=== PATIENT | male | born 1980 | race Caucasian/White ===

== ENCOUNTER 2016-08-01 17:02 | Inpatient (IN) | payer MEDICAID ==
[~2016-08-01] VITALS: Ht 167.6 cm; Wt 65.6 kg
[2016-08-01] MEDS ORDERED: SOD CHLORIDE 0.9% 1,000 ML IV STA (17:55)
[2016-08-01] MEDS ORDERED: DIPHTH/TET/ACEL PERTUSS (ADULT) 0.5 ML VIAL IM* ONE (18:00)
[2016-08-01] MEDS ORDERED: ONDANSETRON 4 MG INJ IV ONE (18:00)
[2016-08-01] MEDS ORDERED: morphine 2 MG INJ IV ONE (18:00)
[2016-08-01] MEDS ORDERED: CEFAZOLIN 2 GM/50 ML (PMX) 50 ML IVPB ONE (18:00)
[2016-08-01 18:32] LABS: ADD SCAN DIFF NO
[2016-08-01 18:35] LABS: BASOPHIL # 0.1 10^3/ul (0.0-0.1); BASOPHILS % 1.5 % (0.0-2.0); HEMATOCRIT 43.2 % (42.0-52.0); HEMOGLOBIN 14.9 g/dl (14.0-18.0); LYMPHOCYTES # 0.6 10^3/ul (0.8-2.9); LYMPHOCYTES % 6.6 % (15.0-51.0); MEAN CORPUSCULAR HGB CONC 34.5 g/dl (32.0-37.0); MEAN CORPUSCULAR VOLUME 95.6 fl (82.0-101.0); MEAN PLATELET VOLUME 9.6 fl (7.4-10.4); MONOCYTE # 0.7 10^3/ul (0.3-0.9); MONOCYTES % 7.9 % (0.0-11.0); NEUTROPHIL # 7.6 10^3/ul (1.6-7.5); NEUTROPHILS % 83.6 % (39.0-77.0); PLATELET COUNT 176 10^3/UL (140-415); RED BLOOD COUNT 4.52 10^6/ul (4.70-6.10); RED CELL DISTRIBUTION WIDTH 12.2 % (11.5-14.5); WHITE BLOOD COUNT 9.1 10^3/ul (4.8-10.8)
[2016-08-01 18:59] LABS: INR 1.21; POTASSIUM 3.9 mmol/L (3.5-5.1); PROTIME 15.4 Sec (12.2-14.2); PT RATIO 1.2
[2016-08-01 19:00] LABS: PARTIAL THROMBOPLASTIN TIME 32.2 Sec (25.0-35.0)
[2016-08-01 19:02] LABS: CALCIUM 9.3 mg/dl (8.4-10.2); CREATININE 0.6 mg/dl (0.61-1.24)
--- NOTE | 2016-08-01 19:14 | RADRPT ---
PROCEDURE: Portable chest x-ray. CLINICAL INDICATION: Injury, chest pain. TECHNIQUE: Portable AP view of the chest. COMPARISON: None. FINDINGS: No pulmonary edema or conolidation is identified. The cardiac silhouette is not enlarged. No pleur al effusion is seen. There is no pneumothorax. No fracture is identified. IMPRESSION: 1. No radiographic evidence of traumatic chest injury. RPTAT: HTAR .Horacio Thomson MD, MD Date Time Electronically viewed and signed by .Horacio Thomson MD, on 08/01/2016 19:13 .R/
--- NOTE | 2016-08-01 19:15 | RADRPT ---
PROCEDURE: XR Wrist. CLINICAL INDICATION: Pain. TECHNIQUE: 4 views of the left wrist. COMPARISON: None available. FINDINGS: There are fractures of the distal radial and ulnar metaphyses with a full shaft width volar displace ment, overriding, and volar angulation of the distal fracture fragments. The joint spaces are prese rved. IMPRESSION: 1. Fractures of the distal radial and ulnar metaphyses with a full shaft width volar displacement, overriding, and volar angulation of the distal fracture fragments. RPTAT: HTAR .Horacio Thomson MD, MD Date Time Electronically viewed and signed by .Horacio Thomson MD, on 08/01/2016 19:15 .R/
[2016-08-01] MEDS ORDERED: ONDANSETRON 4 MG INJ IV PRN (19:30)
[2016-08-01] MEDS ORDERED: ACETAMINOPHEN 325 MG TAB PO PRN (19:30)
[2016-08-01 20:13] VITALS: TEMP 99.2
--- NOTE | 2016-08-01 21:14 | ERA ---
ER Documentation Chief Complaint Date/Time DATE: 08/01/16 TIME: 21:13 Chief Complaint LEFT WRIST PAIN POSSIBLE OPEN FRACTURE, FELL OFF SKATEBOARD TODAY HPI 36-year-old male who presents with left wrist pain and deformity with open skin wounds after a skateboard incident just prior to arrival. The patient is ambidextrous. He states that he fell he did not hit his head or lose consciousness. The patient has obvious deformity and pain that is moderate to severe to the left wrist with open wounds to the dorsal aspect of the wrist. Pain is worse with movement and constant. ROS All systems reviewed and are negative except as per history of present illness. Medications Home Meds No Active Prescriptions or Reported Meds Allergies Allergies: Coded Allergies: No Known Allergy (Unverified , 08/01/16) PMhx/Soc Medical and Surgical Hx: pt denies Medical Hx, pt denies Surgical Hx Hx Alcohol Use: No Hx Substance Use: No Hx Tobacco Use: No Smoking Status: Never smoker FmHx Family History: No diabetes Physical Exam Vitals Vital Signs Date Time Temp Pulse Resp B/P Pulse Ox O2 Delivery O2 Flow Rate FiO2 08/01/16 20:13 99.2 91 19 135/84 98 Room Air 08/01/16 18:30 99.2 98 17 132/81 95 Room Air 08/01/16 17:18 98.5 113 22 132/84 97 Physical Exam Airway is intact Bilateral breath sounds Strong distal pulses No obvious deficits General: Well developed, well nourished, no acute distress Head: Normocephalic, atraumatic Eyes: Pupils equally reactive, EOM intact ENT: Moist mucous membranes Neck: Supple, no lymphadenopathy, No midline tenderness, deformities, step-offs to the cervical spine, full active and passive range of motion without midline pain. Respiratory: Lungs clear bilaterally, no distress, no chest wall tenderness, no crepitus Cardiovascular: RRR, no murmurs, rubs, or gallops Abdominal: Soft, non-tender, non-distended, no peritoneal signs, pelvis is stable : Deferred MSK: Obvious deformity to the distal radius and ulnar of the left wrist with open wounds to the radial aspect of the wrist and dorsal aspect of the wrist that appear to be puncture wounds, slightly oozing blood. 2+ radial and ulnar pulses. Good capillary refill., no midline tenderness deformities or step-offs to the thoracolumbar spine Neurologic: Alert and oriented, moving all extremities, normal speech, no focal weakness, no cerebellar signs Skin: No ecchymoses or bruising to the chest or abdomen. Skin is documented above Psych: Normal mood Result Diagram: 08/01/16 1806 08/01/16 1806 Results 24 hrs Laboratory Tests Test 08/01/16 18:06 White Blood Count 9.110^3/ul Red Blood Count 4.5210^6/ul Hemoglobin 14.9g/dl Hematocrit 43.2% Mean Corpuscular Volume 95.6fl Mean Corpuscular Hemoglobin 33.0pg Mean Corpuscular Hemoglobin Concent 34.5g/dl Red Cell Distribution Width 12.2% Platelet Count 73059^3/UL Mean Platelet Volume 9.6fl Neutrophils % 83.6% Lymphocytes % 6.6% Monocytes % 7.9% Eosinophils % 0.0% Basophils % 1.5% Nucleated Red Blood Cells % 0.0/100WBC Neutrophils # 7.610^3/ul Lymphocytes # 0.610^3/ul Monocytes # 0.710^3/ul Eosinophils # 0.010^3/ul Basophils # 0.110^3/ul Nucleated Red Blood Cells # 0.010^3/ul Prothrombin Time 15.4Sec Prothrombin Time Ratio 1.2 INR International Normalized Ratio 1.21 Activated Partial Thromboplast Time 32.2Sec Sodium Level 143mmol/L Potassium Level 3.9mmol/L Chloride Level 98mmol/L Carbon Dioxide Level 26mmol/L Anion Gap 23 Blood Urea Nitrogen 5mg/dl Creatinine 0.60mg/dl Glucose Level 210mg/dl Calcium Level 9.3mg/dl Current Medications Medications (Trade) Dose Ordered Sig/Shaila Route PRN Reason Start Time Stop Time Status Last Admin Dose Admin Sodium Chloride (NS) 1,000 ml @ 1,000 mls/hr Q1H STAT IV 08/01/16 17:55 08/01/16 18:54 DC 08/01/16 18:11 Morphine Sulfate (morphine) 4 mg ONCE ONCE IV 08/01/16 18:00 08/01/16 18:01 DC 08/01/16 18:12 Ondansetron HCl 4 mg 4 mg ONCE ONCE IV 08/01/16 18:00 08/01/16 18:01 DC 08/01/16 18:11 Cefazolin Sodium/ Dextrose (Ancef 2 Gm/50 ml (Pmx)) 50 ml @ 100 mls/hr ONCE ONCE IVPB 08/01/16 18:00 08/01/16 18:29 DC 08/01/16 18:13 Diphtheria/ Tetanus/Acell Pertussis (Adacel) 0.5 ml ONCE ONCE IM* 08/01/16 18:00 08/01/16 18:01 DC 08/01/16 18:12 Ondansetron HCl (Zofran Inj) 4 mg BRIDGE ORDER PRN IV NAUSEA AND/OR VOMITING 08/01/16 19:30 08/02/16 19:29 Acetaminophen (Tylenol Tab) 650 mg ER BRIDGE PRN PO MILD PAIN/FEVER 08/01/16 19:30 08/02/16 19:29 Procedures/MDM EKG, MONITORS, & DIAGNOSTIC IMAGING: EKG: I reviewed and interpreted a 12-lead EKG. Rhythm: Normal sinus rhythm Ectopy: None Intervals: No abnormalities ST segments: No elevations or depressions T waves: No contiguous inversions Chest x-ray: I reviewed and interpreted a 1 view of the chest Mediastinum: No enlargement Cardiac silhouette: No cardiomegaly Airspace: Clear lung reynoso bilaterally without evidence of pneumothorax Bones: No evidence of fracture X-ray left wrist: I reviewed and interpreted multiple views of the x-ray Bones: Comminuted and displaced distal radius and ulna fractures Soft tissue: No evidence of foreign body Splint Application Note: Splint type: Fabricated Ortho-Glass sugar tong Extremity: Left upper extremity Indication: Open fracture The patient was consented at bedside prior to splint application and states understanding of risks, benefits, and alternatives. The patient was neurovascularly intact prior to and status post application of the splint. The patient tolerated the procedure well and there were no complications. LAB INTERPRETATION: No acute process MEDICAL DECISION MAKING: The patient has signs and symptoms consistent with open fracture of the distal radius and ulnar of the left upper extremity. No evidence of head trauma. The patient does not meet high-risk criteria and based on NEXUS cervical spine criteria there is no indication for cervical spine imaging at this time. ER COURSE: The patient's wound was thoroughly irrigated his tetanus was updated he was given 2 g of Ancef and pain medication. The patient was immobilized as documented above. The patient will be admitted for surgical management of open fracture. I kept the patient and/or family informed of laboratory and diagnostic imaging results throughout the emergency room course. DISPOSITION PLAN: Medical surgical admission for management of open fracture CONSULTATION: Accepting care team and consultations: I discussed the current laboratory data, diagnostic imaging and emergency care provided. Admitting team: Dr. Dumont Admitting team indication: Insurance directed Consulting services: Orthopedic surgery Dr. Gracia Departure Diagnosis: Primary Impression: Open fracture of left distal radius Qualified Code: S52.502B - Type I or II open fracture of distal end of left radius, unspecified fracture morphology, initial encounter Additional Impression: Open fracture of distal end of left ulna Qualified Code: S52.602B - Type I or II open fracture of distal end of left ulna, unspecified fracture morphology, initial encounter Condition: Stable RAUL COSME MD August 01, 2016 21:13
[2016-08-01 21:25] VITALS: Ht 167.6 cm; Wt 65.6 kg
[2016-08-01 22:04] VITALS: BP 113/73; RESP 17
[2016-08-01 22:09] VITALS: BP 114/65; RESP 19
[2016-08-01] MEDS ORDERED: SOD CHLORIDE 0.9% 1,000 ML IV SCH (23:55)
--- NOTE | 2016-08-01 23:55 | HP ---
Date/Time of Note Date/Time of Note DATE: 08/01/16 TIME: 23:55 Assessment/Plan VTE Prophylaxis VTE Prophylaxis Intervention: SCD's Assessment/Plan Chief Complaint/Hosp Course This is a 36-year-old male who is being admitted to the medical floor for: #1 open left wrist fracture: X-ray shows Fractures of the distal radial and ulnar metaphyses with a full shaft width volar displacement, overriding, and volar angulation of the distal fracture fragments. Currently right now patient is in a cast. He was started on Ancef. We will continue Ancef for surgical prophylaxis. Pain control with IV pain medication. Keep the patient n.p.o. IV fluids. Dr. Gracia of orthopedic surgery was already called consulted via the ED. #2 heavy alcohol use: Patient states that he drinks approximately 6 beers on a daily basis with his last drink being approximately this morning. We will continue to monitor patient for alcohol withdrawal. Given banana bag. As needed Ativan for withdrawal symptoms. #3 family history of diabetes: We will check a hemoglobin A1c #4 vitamin D deficiency: Continue workup as outpatient. He is currently not on any medications. #5 DVT and GI prophylaxis: SCDs, famotidine. Further management will be implemented as per the clinical course Problems: HPI/ROS Admit Date/Time Admit Date/Time August 01, 2016 at 19:23 Hx of Present Illness Chief complaint: Broken left wrist 36-year-old male who presents with left wrist pain and deformity with open skin wounds after a skateboard incident just prior to arrival. The patient is ambidextrous. He states that he fell he did not hit his head or lose consciousness. The patient has obvious deformity and pain that is moderate to severe to the left wrist with open wounds to the dorsal aspect of the wrist. Pain is worse with movement and constant. He was casted in the ER. He was also given Ancef. Orthopedic surgery was consulted. Patient currently right now has gotten pain relief from the pain medications he received. Allergies: NKDA Medications: None ROS Const: As per HPI Eyes : No pain discharge or redness or change in visual acuity ENT: No pain, sore throat, congestion, congestion, dysphagia or discharge Respiratory: No shortness of breath, cough, sputum, wheezing, or pleuritic pain Cardiovascular: No chest pain, palpitation, PND, or edema GI : no change in appetite, abdominal pain, nausea, vomiting, diarrhea, constipation, or change in the color his stool Genitourinary: No dysuria, hematuria, flank pain , discharge or CVA tenderness Musculoskeletal: As per HPI Skin: No rash, bruising or hives Neuro: No headache, dizziness, syncope, seizure, focal weakness Endocrine: No polyuria, polydipsia, temperature intolerance Psych: No hallucination, depression, anxiety or suicidal ideation PMH/Family/Social Past Medical History Vitamin D deficiency, and some Past Surgical History Past Surgical Hx: no surgical history Family History Significant Family History: cancer (Mom: Breast cancer), diabetes (Mom) Social History Alcohol Use: heavy (6 beers every day) Smoking Status: Never smoker Drug Use: marijuana Exam/Review of Systems Vital Signs Vitals Vital Signs Date Time Temp Pulse Resp B/P Pulse Ox O2 Delivery O2 Flow Rate FiO2 08/01/16 22:09 98.0 86 19 114/65 86 08/01/16 20:13 Room Air Exam Exam General: Patient is currently living in the hospital bed in no acute distress. HEENT: Atraumatic, normocephalic. The pupils are equal, round and reactive. Extraocular motor are intact Neck: Supple with full range of motion. No rigidity or meningismus Chest: Nontender Lungs: Clear to auscultation bilaterally no crackles rales or wheezing Heart: Normal S1-S2, Regular rhythm and rate. No murmur Abdomen: Soft , nontender, nondistended , bowel sounds are present. No guarding no rebound tenderness , No masses or organomegaly. No costovertebral temporal angle mass Extremities: Currently his left upper extremity is wrapped in a cast. There is a abrasion of the left kneecap. Neurologic: Normal mental status, speech normal, cranial nerves II through XII are intact, motor and sensory are intact, no focal weakness Additional Comments EKG Rhythm: Normal sinus rhythm Ectopy: None Intervals: No abnormalities ST segments: No elevations or depressions T waves: No contiguous inversions PROCEDURE: XR Wrist. CLINICAL INDICATION: Pain. TECHNIQUE: 4 views of the left wrist. COMPARISON: None available. FINDINGS: There are fractures of the distal radial and ulnar metaphyses with a full shaft width volar displacement, overriding, and volar angulation of the distal fracture fragments. The joint spaces are preserved. IMPRESSION: 1. Fractures of the distal radial and ulnar metaphyses with a full shaft width volar displacement, overriding, and volar angulation of the distal fracture fragments. RPTAT: HTAR .Horacio Thomson MD, Date Time Electronically viewed and signed by .Horacio Thomson MD, on 08/01/2016 19:15 PROCEDURE: Portable chest x-ray. CLINICAL INDICATION: Injury, chest pain. TECHNIQUE: Portable AP view of the chest. COMPARISON: None. FINDINGS: No pulmonary edema or conolidation is identified. The cardiac silhouette is not enlarged. No pleural effusion is seen. There is no pneumothorax. No fracture is identified. IMPRESSION: 1. No radiographic evidence of traumatic chest injury. RPTAT: HTAR .Horacio Thomson MD, Date Time Electronically viewed and signed by .Horacio Thomson MD, on 08/01/2016 19:13 Labs Result Diagram: 08/01/16 1806 08/01/16 1806 APRIL SALAZAR August 01, 2016 23:55
[2016-08-02] VITALS (24 sets, daily range): BP systolic 119–161; BP diastolic 70–93; PULSE 73–138; RESP 12–20
[2016-08-02] MEDS ORDERED: ACETAMINOPHEN 325 MG TAB PO PRN
[2016-08-02] MEDS ORDERED: LORAZEPAM 2 MG INJ IM PRN (02:30)
[2016-08-02] MEDS: CEFAZOLIN 2 GM/50 ML (PMX) 50 ML IVPB SCH ×4 (05:40→23:17)
[2016-08-02 06:10] LABS: ADD SCAN DIFF NO
[2016-08-02 06:15] LABS: ABNORMAL IP MESSAGE 1; BASOPHIL # 0.1 10^3/ul (0.0-0.1); EOSINOPHILS % 0.1 % (0.0-7.0); HEMATOCRIT 38.5 % (42.0-52.0); HEMOGLOBIN 13.2 g/dl (14.0-18.0); LYMPHOCYTES # 1.8 10^3/ul (0.8-2.9); LYMPHOCYTES % 14.6 % (15.0-51.0); MEAN CORPUSCULAR HEMOGLOBIN 32.6 pg (29.0-33.0); MEAN CORPUSCULAR HGB CONC 34.3 g/dl (32.0-37.0); MEAN CORPUSCULAR VOLUME 95.1 fl (82.0-101.0); MEAN PLATELET VOLUME 10.1 fl (7.4-10.4); MONOCYTE # 1.6 10^3/ul (0.3-0.9); MONOCYTES % 13.3 % (0.0-11.0); NEUTROPHIL # 8.6 10^3/ul (1.6-7.5); NEUTROPHILS % 70.8 % (39.0-77.0); PLATELET COUNT 162 10^3/UL (140-415); RED BLOOD COUNT 4.05 10^6/ul (4.70-6.10); RED CELL DISTRIBUTION WIDTH 11.9 % (11.5-14.5); WHITE BLOOD COUNT 12.1 10^3/ul (4.8-10.8)
[2016-08-02 06:28] LABS: ALBUMIN 4.2 g/dl (3.3-4.9)
[2016-08-02 06:29] LABS: POTASSIUM 3.3 mmol/L (3.5-5.1)
[2016-08-02 06:31] LABS: BILIRUBIN,INDIRECT 0.8 mg/dl (0-1.1); BILIRUBIN,TOTAL 0.8 mg/dl (0.2-1.3); CREATININE 0.51 mg/dl (0.61-1.24); TOTAL PROTEIN 8.4 g/dl (6.1-8.1)
[2016-08-02 06:32] LABS: CALCIUM 8.4 mg/dl (8.4-10.2); MAGNESIUM 1.5 mg/dl (1.7-2.5)
[2016-08-02] MEDS ORDERED: FENTAnyl 50 MCG/ML VIAL IV PRN (07:30)
[2016-08-02] MEDS ORDERED: OXYCODONE/ACETAMINOPHEN (5/325) TAB PO PRN ×2 (07:30)
[2016-08-02] MEDS ORDERED: ONDANSETRON 4 MG INJ IV PRN ×2 (07:30)
[2016-08-02] MEDS ORDERED: LORAZEPAM 2 MG INJ IV PRN (07:30)
[2016-08-02] MEDS ORDERED: PROCHLORPERAZINE 10 MG INJ IV PRN (07:30)
[2016-08-02] MEDS ORDERED: HYDROmorphONE (0.2 MG/ML) 10ML SYG IV PRN ×2 (07:30)
[2016-08-02] MEDS ORDERED: MEPERIDINE 25 MG INJ IV PRN (07:30)
[2016-08-02] MEDS ORDERED: DIPHENHYDRAMINE 50 MG INJ IV PRN (07:30)
[2016-08-02] MEDS: FAMOTIDINE 20 MG INJ IV SCH ×2 (08:40→20:43)
--- NOTE | 2016-08-02 10:49 | CONS ---
DATE OF ADMISSION: 08/01/2016 DATE OF CONSULTATION: 08/02/2016 HISTORY OF PRESENT ILLNESS: The patient is a 36-year-old ambidextrous male who was admitted on 07/14 when he was brought in to the emergency room because of a painful deformity involving his lef t wrist. Initial evaluation in the emergency room revealed an obvious fracture involving the distal end of the radius and ulna over the left wrist and there was a puncture wound over the dorsal aspec t of the left wrist and it was managed by cleaning of the wound, irrigation and debridement in the E R. His left wrist was then further immobilized in a splint and IV antibiotics were started. PHYSICAL EXAMINATION: My examination revealed a 36-year-old man who was not in any acute distress. His left upper extremity was immobilized in a posterior splint. There was no evidence of acute rob rovascular compromise involving the left hand. X-rays of the left wrist revealed a comminuted and displaced fracture involving the distal end of th e radius and ulna. Radiology evaluation was limited with only an AP view and a lateral view was not available for further evaluation. DIAGNOSTIC IMPRESSION: Fracture involving the distal end of the radius and ulna at the left wrist a nd a puncture wound, according to the ER description. TREATMENT PLAN: To surgery as soon as possible for further evaluation, followed by treatment includ ing possible repeat open irrigation and debridement, followed by irrigation and manipulative reducti on of the fracture and immobilization in a cast. Open reduction and internal fixation should be linda ided because of the higher possibility of infection with the use of hardware at this time. Dictated By: KRUPA BASURTO/GERMAINE Conf#: [id number] DID#: [id number]
[2016-08-02] MEDS: MULTIVITAMINS 10 ML, THIAMINE 100 MG, FOLIC ACID 1 MG in SOD CHLORIDE 0.9% 1,000 ML IVPB SCH (11:13)
[2016-08-02] MEDS ORDERED: SEVOFLURANE 15 MIN ONE (12:00)
[2016-08-02] MEDS ORDERED: FENTAnyl 50 MCG/ML VIAL ONE (12:29)
[2016-08-02] MEDS ORDERED: PROPOFOL 20 ML ONE (12:29)
[2016-08-02] MEDS ORDERED: LIDOCAINE 2% (SDV) 5 ML INJ ONE (12:29)
[2016-08-02] MEDS ORDERED: SUCCINYLCHOLINE CHLORIDE 100 MG/5 ML SYG IV ONE (12:51)
[2016-08-02] MEDS ORDERED: ONDANSETRON 4 MG INJ ONE (12:58)
[2016-08-02] MEDS ORDERED: METOCLOPRAMIDE 10 MG INJ ONE (12:58)
[2016-08-02] MEDS ORDERED: KETAMINE 500 MG INJ ONE (12:59)
[2016-08-02] MEDS ORDERED: MAGNESIUM SULFATE 1 GM/D5W 100 ML ONE (13:24)
[2016-08-02] MEDS ORDERED: morphine 2 MG INJ IV PRN ×2 (14:30)
[2016-08-02] MEDS ORDERED: NACL 0.9% 3 ML SYG IV SCH ×2 (14:30)
[2016-08-02] MEDS ORDERED: HYDROCODONE/APAP (5/325) TAB PO PRN (14:30)
--- NOTE | 2016-08-02 15:35 | RADRPT ---
PROCEDURE: XR Wrist. CLINICAL INDICATION: Left wrist . TECHNIQUE: AP, lateral and oblique views of the left wrist were performed. COMPARISON: Left wrist x-rays dated 08/01/2016 FINDINGS: There has been interval closed reduction of comminuted intra-articular distal radial and ulnar fract ures with placement of fiberglass cast which obscures evaluation of fine cortical detail. No signifi cant improved alignment. There is mild valgus angulation of the distal ulnar fracture fragment. The joint spaces are well preserved. No osseous erosions are identified. The soft tissues are unremark able. IMPRESSION: Interval closed reduction of comminuted intra-articular distal radial and ulnar fractures. Alignmen t is significantly improved with mild persistent valgus angulation of the distal ulnar fracture frag ment. RPTAT: HH .Brandee Mccullough MD, Date Time Electronically viewed and signed by .Brandee Mccullough MD, on 08/02/2016 15:35 .G/
--- NOTE | 2016-08-02 15:36 | RADRPT ---
PROCEDURE: C-arm utilization. CLINICAL INDICATION: Close reduction left distal radial ulnar fractures TECHNIQUE: Intraoperative fluoroscopy was performed during closed reduction of left distal radial ulnar fractures. COMPARISON: Wrist x-rays dated 08/01/2016 FINDINGS: 5 spot views of the left wrist were obtained. Intraoperative fluoroscopic images demonstrate close reduction of comminuted intra-articular fractures of the left distal radius and ulna.. A total of 4 .5 seconds of fluoroscopic time was utilized. IMPRESSION: 1. Intraoperative fluoroscopy with a total of 4.5 seconds of fluoroscopy time utilized. 2. 5 spot views of the left wrist were obtained. RPTAT: HH .Brandee Mccullough MD, Date Time Electronically viewed and signed by .Brandee Mccullough MD, on 08/02/2016 15:36 .G/
--- NOTE | 2016-08-02 15:57 | PN ---
Date/Time of Note Date/Time of Note DATE: 08/02/16 TIME: 15:55 Assessment/Plan VTE Prophylaxis VTE Prophylaxis Intervention: LMWH Lines/Catheters IV Catheter Type (from Nrsg): Peripheral IV Assessment/Plan Problems: (1) Open fracture of left distal radius Status: Acute Comment: Successfully postop and bandaged Qualifiers: Encounter type: initial encounter Open fracture type: open type I or II Fracture morphology: unspecified fracture morphology Qualified Code: S52.502B - Type I or II open fracture of distal end of left radius, unspecified fracture morphology, initial encounter (2) Open fracture of distal end of left ulna Status: Acute Comment: Successfully postop and bandage Qualifiers: Encounter type: initial encounter Open fracture type: open type I or II Fracture morphology: unspecified fracture morphology Qualified Code: S52.602B - Type I or II open fracture of distal end of left ulna, unspecified fracture morphology, initial encounter (3) Alcoholism /alcohol abuse Status: Chronic Comment: This is going to be a bit of an issue. Organ go ahead and put him on Librium now and hope for the best. He claims to only drinks 6 units a day of beer. I suspect it is probably at least twice that if not more. He further denies any other drugs of choice. Will get him through the acute phase and then will have long term care social worker see and offer him some rehabilitative therapies. Subjective 24 Hr Interval Summary Free Text/Dictation Patient is immediately postop and back up on the unit. He is tremulous and has some mild nausea. Denies any hallucinations. Constitutional: no complaints Respiratory: no complaints Cardiovascular: no complaints Gastrointestinal: no complaints Genitourinary: no complaints Exam/Review of Systems Vital Signs Vitals Vital Signs Date Time Temp Pulse Resp B/P Pulse Ox O2 Delivery O2 Flow Rate FiO2 08/02/16 15:17 99.0 100 18 143/77 96 Room Air 08/02/16 14:07 6.0 Intake and Output 08/01/16 08/01/16 08/02/16 15:00 23:00 07:00 Intake Total 455 ml Balance 455 ml Exam Constitutional: alert, oriented Neck: non-tender, supple Respiratory: clear to auscultation, normal air movement Cardiovascular: nl pulses, regular rate and rhythm Gastrointestinal: nl liver, spleen, non-tender, soft 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: other (Tremors no confusion yet) Results Result Diagram: 08/02/16 0458 08/02/16 0458 Results 24 hrs Laboratory Tests Test 08/01/16 18:06 08/02/16 04:48 08/02/16 04:58 White Blood Count 9.1 12.1 #H Red Blood Count 4.52 L 4.05 L Hemoglobin 14.9 13.2 L Hematocrit 43.2 38.5 L Mean Corpuscular Volume 95.6 95.1 Mean Corpuscular Hemoglobin 33.0 32.6 Mean Corpuscular Hemoglobin Concent 34.5 34.3 Red Cell Distribution Width 12.2 11.9 Platelet Count 176 162 Mean Platelet Volume 9.6 10.1 Neutrophils % 83.6 H 70.8 Lymphocytes % 6.6 L 14.6 L Monocytes % 7.9 13.3 H Eosinophils % 0.0 0.1 Basophils % 1.5 1.0 Nucleated Red Blood Cells % 0.0 0.0 Neutrophils # 7.6 H 8.6 H Lymphocytes # 0.6 L 1.8 Monocytes # 0.7 1.6 H Eosinophils # 0.0 0.0 Basophils # 0.1 0.1 Nucleated Red Blood Cells # 0.0 0.0 Prothrombin Time 15.4 H Prothrombin Time Ratio 1.2 INR International Normalized Ratio 1.21 Activated Partial Thromboplast Time 32.2 Sodium Level 143 142 Potassium Level 3.9 3.3 L Chloride Level 98 100 Carbon Dioxide Level 26 26 Anion Gap 23 H 19 H Blood Urea Nitrogen 5 L 4 L Creatinine 0.60 L 0.51 L Glucose Level 210 117 # Calcium Level 9.3 8.4 Hemoglobin A1c 5.8 Magnesium Level 1.5 L Total Bilirubin 0.8 Direct Bilirubin 0.00 Indirect Bilirubin 0.8 Aspartate Amino Transf (AST/SGOT) 97 H Alanine Aminotransferase (ALT/SGPT) 62 Alkaline Phosphatase 115 Total Protein 8.4 H Albumin 4.2 Globulin 4.20 H Albumin/Globulin Ratio 1.00 Medications Medications Current Medications Sodium Chloride (NS) 1,000 ml @ 75 mls/hr [id number] IV Last administered on 08/02t 01:46; Admin Dose 75 MLS/HR; Start 08/01/16 at 23:55 Ondansetron HCl (Zofran Inj) 4 mg Q6H PRN IV NAUSEA AND/OR VOMITING; Start at 00:00 Acetaminophen (Tylenol Tab) 650 mg Q6H PRN PO PAIN LEVEL 1-3 OR FEVER; Start at 00:00 Morphine Sulfate (morphine) 2 mg Q4H PRN IV SEVERE PAIN LEVEL 7-10; Start 08/02 at 00:00 Famotidine 20 mg 20 mg Q12 IV Last administered on 08/02/16 08:40; Admin Dose 20 MG; Start 08/02/16 at 09:00 Cefazolin Sodium/ Dextrose 50 ml @ 100 mls/hr Q6 IVPB Last administered on 11:14; Admin Dose 100 MLS/HR; Start 08/02/16 at 06:00 Multivitamins/ Thiamine HCl/ Folic Acid/Sodium Chloride (Mvi Adult/ Vitamin B1/ Folic Acid/NS) 1,011.2 ml @ 125 mls/ hr DAILY@09 IVPB Last administered on 11:13; Admin Dose 125 MLS/HR; Start 08/02/16 at 09:00 Lorazepam 1 mg 1 mg Q6H PRN IM AGITATION/ANXIETY Last administered on 15:15; Admin Dose 1 MG; Start 08/02/16 at 02:30 Sodium Chloride (NS) 1,000 ml @ 100 mls/hr Q10H IV ; Start 08/02/16 at 14:29 Morphine Sulfate (morphine) 2 mg Q3H PRN IV pain; Start 08/02/16 at 14:30 Acetaminophen/ Hydrocodone Bitart ([place] (5/325)) 1 tab Q3H PRN PO PAIN; Start 08/02/16 at 14:30 LUCIANO HORNE MD August 02, 2016 15:57
[2016-08-02] MEDS: SOD CHLORIDE 0.9% 1,000 ML IV SCH ×2 (20:43→23:16)
[2016-08-02] MEDS: CHLORDIAZEPOXIDE 25 MG CAP PO SCH (20:43)
[2016-08-03] MEDS: CEFAZOLIN 2 GM/50 ML (PMX) 50 ML IVPB SCH ×2 (05:20→13:05)
[2016-08-03 08:04] VITALS: BP 138/88; RESP 18
[2016-08-03] MEDS: CHLORDIAZEPOXIDE 25 MG CAP PO SCH (09:00)
[2016-08-03] MEDS: FAMOTIDINE 20 MG INJ IV SCH (09:00)
[2016-08-03] MEDS: MULTIVITAMINS 10 ML, THIAMINE 100 MG, FOLIC ACID 1 MG in SOD CHLORIDE 0.9% 1,000 ML IVPB SCH (09:00)
[2016-08-03] MEDS ORDERED: POTASSIUM CHLORIDE (SR) 20 MEQ TAB PO STA (09:20)
--- NOTE | 2016-08-03 09:22 | PN ---
Date/Time of Note Date/Time of Note DATE: 08/03/16 TIME: 09:20 Assessment/Plan VTE Prophylaxis VTE Prophylaxis Intervention: contraindicated Lines/Catheters IV Catheter Type (from Nrs): Peripheral IV Urinary Cath still in place: No Assessment/Plan Problems: (1) Alcoholism /alcohol abuse Status: Chronic Comment: He is better than he was yesterday but is still having some degree of withdrawal. Due to him being oversedated with the Librium when he is a lower dose and since he is refusing Librium will use Ativan he is actually a point where he could medically be discharged (2) Open fracture of left distal radius Status: Acute Comment: Status post closed reduction. He is on bracing. From medical standpoint he actually probably could go home discharge as per orthopedics giving us the clearance and follow-up plan Please note this is a closed fracture not an open fracture Qualifiers: Encounter type: initial encounter Open fracture type: open type I or II Fracture morphology: unspecified fracture morphology Qualified Code: S52.502B - Type I or II open fracture of distal end of left radius, unspecified fracture morphology, initial encounter (3) Open fracture of distal end of left ulna Status: Acute Comment: As above. Please note this is a closed fracture not an open fracture Qualifiers: Encounter type: initial encounter Open fracture type: open type I or II Fracture morphology: unspecified fracture morphology Qualified Code: S52.602B - Type I or II open fracture of distal end of left ulna, unspecified fracture morphology, initial encounter Subjective 24 Hr Interval Summary Free Text/Dictation Patient reports with the Librium he felt sedated to the point of being modestly disoriented and did not like the sensation. Constitutional: no complaints Respiratory: no complaints Cardiovascular: no complaints Gastrointestinal: no complaints Genitourinary: no complaints Musculoskeletal: other (Arm pain left) Exam/Review of Systems Vital Signs Vitals Vital Signs Date Time Temp Pulse Resp B/P Pulse Ox O2 Delivery O2 Flow Rate FiO2 08/03/16 08:04 98.9 117 18 138/88 97 08/02/16 15:17 Room Air 08/02/16 14:07 6.0 Intake and Output 08/02/16 08/02/16 08/03/16 15:00 23:00 07:00 Intake Total 450 ml 1300 ml 950 ml Output Total 1 ml Balance 449 ml 1300 ml 950 ml Exam Tremulous Constitutional: alert, oriented Psych: anxiety Neck: non-tender, supple Respiratory: clear to auscultation, normal air movement Cardiovascular: nl pulses, regular rate and rhythm Gastrointestinal: nl liver, spleen, non-tender, soft Results Result Diagram: 08/02/16 0458 08/02/16 0458 Medications Medications Current Medications Ondansetron HCl (Zofran Inj) 4 mg Q6H PRN IV NAUSEA AND/OR VOMITING Last administered on 08/02/16 16:15; Admin Dose 4 MG; Start 08/02/16 at 00:00 Acetaminophen (Tylenol Tab) 650 mg Q6H PRN PO PAIN LEVEL 1-3 OR FEVER Last administered on 08/02/16 20:43; Admin Dose 650 MG; Start 08/02/16 at 00:00 Morphine Sulfate (morphine) 2 mg Q4H PRN IV SEVERE PAIN LEVEL 7-10; Start 08/02 at 00:00 Famotidine 20 mg 20 mg Q12 IV Last administered on 08/02/16 20:43; Admin Dose 20 MG; Start 08/02/16 at 09:00 Cefazolin Sodium/ Dextrose 50 ml @ 100 mls/hr Q6 IVPB Last administered on 05:20; Admin Dose 100 MLS/HR; Start 08/02/16 at 06:00 Multivitamins/ Thiamine HCl/ Folic Acid/Sodium Chloride (Mvi Adult/ Vitamin B1/ Folic Acid/NS) 1,011.2 ml @ 125 mls/ hr DAILY@09 IVPB Last administered on 11:13; Admin Dose 125 MLS/HR; Start 08/02/16 at 09:00 Lorazepam 1 mg 1 mg Q6H PRN IM AGITATION/ANXIETY Last administered on 15:15; Admin Dose 1 MG; Start 08/02/16 at 02:30 Sodium Chloride (NS) 1,000 ml @ 100 mls/hr Q10H IV Last administered on 20:43; Admin Dose 100 MLS/HR; Start 08/02/16 at 14:29 Morphine Sulfate (morphine) 2 mg Q3H PRN IV pain; Start 08/02/16 at 14:30 Acetaminophen/ Hydrocodone Bitart ([facility] (5/325)) 1 tab Q3H PRN PO PAIN; Start 08/02/16 at 14:30 Chlordiazepoxide (Librium) 50 mg TID PO Last administered on 08/02/16t 20:43; Admin Dose 50 MG; Start 08/02/16 at 21:00; Stop 08/04/16 at 20:59 LUCIANO HORNE MD August 03, 2016 09:22
[2016-08-03] MEDS ORDERED: LORAZEPAM 0.5 MG TAB PO SCH (09:30)
[2016-08-03] MEDS: SOD CHLORIDE 0.9% 1,000 ML IV SCH (10:29)
--- NOTE | 2016-08-03 12:05 | PDOCDIS ---
Discharge Instructions DIAGNOSIS Discharge Diagnosis: Left olecranon fx, Alcoholism CONDITION Patient Condition: Good HOME CARE INSTRUCTIONS: Diet Instructions: Regular ACTIVITY: Activity Restrictions: Slowly Increase Activity No Sexual Activity FOLLOW UP/APPOINTMENTS Appointments Contact primary doctor at [facility] and get referral to in plan orthopedist this week LUCIANO HORNE MD August 03, 2016 12:05
[2016-08-03] MEDS ORDERED: HYDR-3498 PO (12:06)
[2016-08-03] MEDS ORDERED: CEPH500C PO (12:13)
--- NOTE | 2016-08-03 12:14 | DS ---
Date/Time of Note Date/Time of Note DATE: 08/03/16 TIME: 12:10 Discharge Summary Admission/Discharge Info Admit Date/Time August 01, 2016 at 19:23 Discharge Date/Time 08/03/2016 Final Diagnosis Fracture involving the distal end of the radius and ulna at the left wrist; alcoholism with withdrawal Patient Condition: Fair Consults Orthopedic surgery/Dr. Gracia Procedures Closed reduction of fracture Hx of Present Illness Chief complaint: Broken left wrist 36-year-old male who presents with left wrist pain and deformity with open skin wounds after a skateboard incident just prior to arrival. The patient is ambidextrous. He states that he fell he did not hit his head or lose consciousness. The patient has obvious deformity and pain that is moderate to severe to the left wrist with open wounds to the dorsal aspect of the wrist. Pain is worse with movement and constant. He was casted in the ER. He was also given Ancef. Orthopedic surgery was consulted. Patient currently right now has gotten pain relief from the pain medications he received. Allergies: NKDA Medications: None Hospital Course This is a 36-year-old male who is being admitted to the medical floor for: #1 open left wrist fracture: X-ray shows Fractures of the distal radial and ulnar metaphyses with a full shaft width volar displacement, overriding, and volar angulation of the distal fracture fragments. Currently right now patient is in a cast. He was started on Ancef. We will continue Ancef for surgical prophylaxis. Pain control with IV pain medication. Keep the patient n.p.o. IV fluids. Dr. Gracia of orthopedic surgery was already called consulted via the ED. #2 heavy alcohol use: Patient states that he drinks approximately 6 beers on a daily basis with his last drink being approximately this morning. We will continue to monitor patient for alcohol withdrawal. Given banana bag. As needed Ativan for withdrawal symptoms. #3 family history of diabetes: We will check a hemoglobin A1c #4 vitamin D deficiency: Continue workup as outpatient. He is currently not on any medications. #5 DVT and GI prophylaxis: SCDs, famotidine. Further management will be implemented as per the clinical course Home Meds Active Scripts Hydrocodone Bit-Acetaminophen (Hydrocodone Bit-APAP) 5-325MG Tablet, 1 TAB PO Q3H Y for PAIN for 7 Days, #14 TAB Prov:LUCIANO HORNE MD 08/03/16 Follow-up Plan Orthopedic surgeon in [facility] to be connected by primary care physician Primary Care Provider [facility] per patient Time spent on discharge: > 30 minutes LUCIANO HORNE MD August 03, 2016 12:14
--- NOTE | 2016-08-04 17:32 | OPR ---
DATE OF OPERATION: 08/02/2016 PREOPERATIVE DIAGNOSIS: Severely comminuted and displaced fracture involving the distal end of the radius and ulna at the left wrist, technically open. POSTOPERATIVE DIAGNOSIS: Severely comminuted and displaced fracture involving the distal end of the radius and ulna at the left wrist, technically open. OPERATION PERFORMED: 1. Open irrigation and debridement of the wound and at the fracture site. 2. Manipulative reduction under general anesthesia by hanging it from IV pole using Czech finger trap. 3. Immobilization in a long arm cast. SURGEON: Krupa Gracia MD PROCEDURE AND FINDINGS: Under anesthesia, the patient was placed in supine position upon the table. Initially, the small open wound was repeatedly irrigated with sterile saline solution and hydrogen peroxide even though it was reportedly irrigated in the ER before. After irrigation, manipulative reduction of the fracture was carried out and then the left wrist was hanged from IV pole using Chin carine finger trap with the weight at the elbow. Following further manipulation, it was confirmed that the alignment of the fracture was entirely satisfactory. The entire left upper extremity was then immobilized in a long arm splint. The patient tolerated the entire procedure very well and was sent to the recovery room in excellent condition. Dictated By: KRUPA BASURTO/GERMAINE Conf#: [id number] DID#: [id number]
--- NOTE | 2016-08-05 03:54 | DS ---
DATE OF ADMISSION: 08/01/2016 DATE OF DISCHARGE: 08/03/2016 ADDENDUM DISCHARGE NOTE HOSPITAL COURSE: Mr. Dominique is a 36-year-old gentleman who had been riding his significant other skateboard fell and sustained an olecranon fracture. He was taken to the operating room by Dr. Alex Gracia who performed reduction and then wanted the patient to be allowed to be discharged. He was di scharged with oral antibiotics, specifically Keflex as per the directions of Dr. Gracia. Please note, the patient had been under the primary care of our colleagues at [facility]. When they lef t on the 08/03/2016, they were given specific instructions to contact them immediately to make arran gements for followup. This is as Dr. Gracia had requested the patient follow up there due to insurance issues for the patient as opposed to following up with Dr. Gracia in his office. They have come back to the hospital today stating that they need a prescription for narcotics rewritten. As they anlsey t in the first one I have gone ahead and rewritten their prescription for hydrocodone/acetaminophen 5-325, one q.6 hours p.r.n. for 14 pills with no refills. Again, they will follow up with their [facility] care physician at [facility], I reconfirmed this with the patient's mother and his sig nificant other, Elizabeth Berger. Dictated By: LUCIANO HORNE MD, JR/NTS Conf#: [id number] DID#: [id number] CC: KRUPA GRACIA MD;*EndCC*
== END 2016-08-03 14:25 | disposition home or self-care (01) | DRG 501 ==
LOC: E/R 17:02 → PP2 19:23
PROVIDERS: ADMIT Family Medicine; ATTEND Family Medicine
PROC: 0JDH0ZZ Extraction of Left Lower Arm Subcutaneous Tissue and Fascia, Open Approach (ICD-10-PCS; 2016-08-02)
PROC: 0PSLXZZ Reposition Left Ulna, External Approach (ICD-10-PCS; 2016-08-02)
PROC: 0PSJXZZ Reposition Left Radius, External Approach (ICD-10-PCS; principal; 2016-08-02 13:15)
DX: S52.592B Other fractures of lower end of left radius, initial encounter for open fracture type I or II (principal); F10.239 Alcohol dependence with withdrawal, unspecified; E55.9 Vitamin D deficiency, unspecified; S52.692B Other fracture of lower end of left ulna, initial encounter for open fracture type I or II; V00.131A Fall from skateboard, initial encounter; Y93.51 Activity, roller skating (inline) and skateboarding; Y92.89 Other specified places as the place of occurrence of the external cause
CPT/HCPCS: 71010; 73100; 80048; 80053; 83036; 83735; 85025; 85610; 85730; 90471; 90715; 96374; 96375; J0690; J2060; J2270; J2405; J2765; J3010; J3411; J3475; J7030; J7999

== ENCOUNTER 2016-09-03 13:17 | Emergency (ER) | payer MEDICAID ==
[~2016-09-03] VITALS: Ht 157.5 cm; Wt 64.5 kg
[~2016-09-03 13:17] MED LIST: CEPH500C PO; HYDR-3498 PO
[2016-09-03 13:39] VITALS: Ht 157.5 cm; Wt 64.5 kg
--- NOTE | 2016-09-03 18:36 | ERD ---
ER Documentation Chief Complaint Date/Time DATE: 09/03/16 TIME: 18:32 Chief Complaint LEFT HAND SWELLING HAS A CAST FROM A BROKEN ARM, IS INTOXICATED ETOH HPI 36-year-old male had a fracture elbow repaired on August 01, comes in with arm swelling that occurred yesterday, and feeling of warmth in his chest that he thought was possible fevers. She states that this time he is homeless and has been sleeping in the car yesterday he had gotten overheated in the car at that time he thought he might of had a fever. He took a painkiller, he was prescribed Clio which she took once last night, and states that not feeling a fever has resolved today. He also states that he has some swelling to the left hand however that has resolved and he has not had any pain. ROS All systems reviewed and are negative except as per history of present illness. Medications Home Meds Active Scripts Cephalexin* (Cephalexin*) 500 Mg Capsule, 500 MG PO Q8, #21 CAP Prov:LUCIANO HORNE MD 08/03/16 Hydrocodone Bit-Acetaminophen (Hydrocodone Bit-APAP) 5-325MG Tablet, 1 TAB PO Q3H Y for PAIN for 7 Days, #14 TAB Prov:LUCIANO HORNE MD 08/03/16 Allergies Allergies: Coded Allergies: No Known Allergy (Unverified , 08/01/16) PMhx/Soc History of Surgery: No Anesthesia Reaction: No Hx 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 Disorder: No Hx Respiratory Disorders: No Hx Cardiac Disorders: No Hx Psychiatric Problems: No Hx Alcohol Use: Yes Hx Substance Use: Yes (marijuana) Hx Tobacco Use: No Physical Exam Vitals Vital Signs Date Time Temp Pulse Resp B/P Pulse Ox O2 Delivery O2 Flow Rate FiO2 09/03/16 13:39 98.5 92 18 126/67 97 Physical Exam General: Well-developed, well-nourished. The patient appears in no acute distress. HEENT: Head is normocephalic, atraumatic. No scleral icterus. Neck: Supple. Nontender. Lungs: Clear to auscultation. Normal air movement. Heart: Regular rate and rhythm. S1 and S2 are normal. No murmurs, gallops, or rubs. Abdomen: Soft, nontender, nondistended. Bowel sounds are normoactive. Extremities: Patient's left upper extremity is casted, and a long-arm. Patient' s sensation is distally intact, there is no edema to the left hand that is appreciated. Neurologic: Alert and oriented 3. No focal deficits. Skin: Normal turgor. No rash or lesions. Procedures/MDM MDM: 36-year-old male comes in with left upper extremity swelling and feeling of warmth in his chest yesterday. He states that he had some concern that it might of been a fever however that sensation has stopped since he has not been sleeping in the car today. He also reports that there is no swelling today. His examination is benign, given the history that he is supposed to see in the cast, I did discuss this with my attending physician and feels it is appropriate to discharge the patient without further imaging or laboratory testing. I doubt septic arthritis, osteomyelitis, tenosynovitis, DVT, cellulitis, abscess and among others are part of my differential diagnosis. The case was reviewed and discussed with Dr. Hightower who agrees with the plan of care including labs, treatment, and advanced imaging as appropriate. Departure Diagnosis: Primary Impression: Elbow fracture, left Condition: Good Patient Instructions: Elbow Fracture Referrals: PAUL REYES MD Additional Instructions: [facility] for an appointment during the next 1-2 days.See the doctor sooner or return here if your condition worsens before your appointment time. BRAN MAGALLON PA-C Sep 03, 2016 18:36
== END 2016-09-03 15:42 | disposition home or self-care (01) ==
LOC: FTE 13:17
DX: S42.402D Unspecified fracture of lower end of left humerus, subsequent encounter for fracture with routine healing (principal); X58.XXXD Exposure to other specified factors, subsequent encounter
CPT/HCPCS: 99282

== ENCOUNTER 2017-03-26 15:04 | Emergency (ER) | END 2017-03-26 17:01 | disposition home or self-care (01) ==

== ENCOUNTER 2017-06-24 12:00 | Emergency (ER) | END 2017-06-24 20:33 | disposition home or self-care (01) ==

== ENCOUNTER 2017-12-16 12:13 | Emergency (ER) | END 2017-12-16 14:23 | disposition home or self-care (01) ==

== ENCOUNTER 2018-06-05 11:29 | Emergency (ER) | payer MEDICAID ==
[~2018-06-05] VITALS: Ht 167.6 cm; Wt 65.0 kg
[~2018-06-05 11:29] MED LIST changes: -CEPH500C PO; +CHOL400T10 PO; -HYDR-3498 PO; +LORA1TAB PO
[2018-06-05 11:49] VITALS: BP 151/97; PULSE 105; RESP 18; Ht 167.6 cm; Wt 65.0 kg
--- NOTE | 2018-06-05 14:21 | ERD ---
ER Documentation Chief Complaint Chief Complaint left eye drainage x 1 monht HPI 37-year-old male, with history of severe facial acne, presents to the emergency department, complaining of a painful cyst in the upper left eyelid for 1 month. He denies blurred vision, no intraocular discharge, no fever or chills. No headaches, no nausea or vomiting. ROS All systems reviewed and are negative except as per history of present illness. Medications Home Meds Active Scripts Lorazepam* (Lorazepam*) 1 Mg Tablet, 1 MG PO QHS for ins, #12 TAB Prov:LIZ MCMAHON. DO 06/24/17 Reported Medications Cholecalciferol* (Vitamin D*) 400 Unit Tablet, 800 UNIT PO DAILY, TAB 06/24/17 Allergies Allergies: Coded Allergies: No Known Allergy (Unverified , 12/16/17) PMhx/Soc Medical and Surgical Hx: pt denies Medical Hx, pt denies Surgical Hx History of Surgery: No Anesthesia Reaction: No Hx 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 Disorder: No Hx Respiratory Disorders: No Hx Cardiac Disorders: No Hx Psychiatric Problems: No Hx Alcohol Use: Yes Hx Substance Use: Yes (marijuana) Hx Tobacco Use: Yes Smoking Status: Never smoker Physical Exam Vitals Vital Signs Date Temp Pulse Resp B/P (MAP) Pulse Ox O2 O2 Flow FiO2 Time Delivery Rate 06/05/18 97.8 105 18 151/97 98 11:49 (115) Physical Exam Const: No acute distress Head: Atraumatic Eyes: Normal Conjunctiva ENT: Normal External Ears, Nose and Mouth. Neck: Full range of motion. No meningismus. Resp: Clear to auscultation bilaterally Cardio: Regular rate and rhythm, no murmurs Abd: Soft, non tender, non distended. Normal bowel sounds Skin: 3mm pustular cyst in the left upper eyelid. Back: No midline or flank tenderness Ext: No cyanosis, or edema Neur: Awake and alert Psych: Normal Mood and Affect Procedures/MDM Differential diagnosis include but not limited to: Insect bite, hordeolum, chalazion, shingles, dermoid cyst. Low suspicion for acute systemic infection. Physical examination and clinical presentation consistent most likely with a skin cyst of the left eyelid During the ED course the patient remained stable, no new complaints. Cyst I&D The procedure was explained and consent obtained. The area was cleaned with iodine. A sterile drape and prep were done. The cyst on the left upper eyelid, was excised with an 18-gauge needle obtaining moderate amount of pus, the area was expressed and irrigated with normal saline. Antibiotic ointment was applied. The patient tolerated the procedure well. The patient is stable to be treated outpatient and will be discharged home, no indication for prescribed medications at this time. The patient was instructed to follow up with the primary care provider in the next 48h. If symptoms persist, worsen or new symptoms develop, then patient should return to the ED immediately. Instructions explained and given directly by me to the patient with acknowledgment and demonstrated understanding. Disclaimer: Inadvertent spelling and grammatical errors are likely due to EHR/dictation software use and do not reflect on the overall quality of patient care. Also, please note that the electronic time recorded on this note does not necessarily reflect the actual time of the patient encounter. Departure Diagnosis: Primary Impression: Cyst, eyelid sebaceous Condition: Stable Additional Instructions: Thank you very much for allowing us to participate in your care. Your health and safety is our top priority at [facility]. Call your primary care doctor TOMORROW for an appointment during the next 2-4 days and bring all the information and medications prescribed. Have prescriptions filled and follow precisely the directions on the label. If the symptoms get worse and your provider is unavailable, return to the Emergency Department immediately. ANSELMO WU MD Jun 05, 2018 14:21
== END 2018-06-05 14:41 | disposition home or self-care (01) ==
LOC: FTE 11:29
DX: H02.825 Cysts of left lower eyelid (principal); Z87.891 Personal history of nicotine dependence
CPT/HCPCS: 67700; Z7502

== ENCOUNTER 2018-06-27 20:58 | Emergency (ER) | payer SELFPAY ==
[~2018-06-27] VITALS: Ht 167.6 cm; Wt 62.9 kg
[2018-06-27 21:04] VITALS: BP 131/87; PULSE 104; RESP 18; Ht 167.6 cm; Wt 62.9 kg
== END 2018-06-28 02:28 | disposition left against medical advice (07) ==
LOC: FTE 20:58
DX: Z53.21 Procedure and treatment not carried out due to patient leaving prior to being seen by health care provider (principal)

== ENCOUNTER 2018-06-30 16:43 | Inpatient (IN) | payer MEDICAID ==
[~2018-06-30] VITALS: Ht 167.6 cm; Wt 61.8 kg
[2018-06-30 16:52] VITALS: Ht 167.6 cm; Wt 61.8 kg
[2018-06-30] MEDS ORDERED: CEFTRIAXONE 1 GM/50 ML (PMX) 50 ML IVPB ONE (21:00)
[2018-06-30] MEDS ORDERED: ONDANSETRON 4 MG INJ IV PRN (21:00)
[2018-06-30] MEDS ORDERED: ACETAMINOPHEN 325 MG TAB PO PRN (21:00)
[2018-06-30] MEDS ORDERED: SOD CHLORIDE 0.9% 500 ML IV ONE (21:00)
[2018-06-30] MEDS ORDERED: NACL 0.9% 3 ML SYG IV SCH (21:00)
[2018-06-30] MEDS ORDERED: LORAZEPAM 0.5 MG TAB PO ONE (21:00)
[2018-06-30] MEDS ORDERED: SOD CHLORIDE 0.9% 1,000 ML IV ONE (21:00)
[2018-06-30] MEDS: DOCUSATE SODIUM 100 MG CAP PO SCH (21:04)
--- NOTE | 2018-06-30 21:04 | ERD ---
ER Documentation Chief Complaint Chief Complaint ABDOMINAL PAIN AND CONSTIPATON ; YELLO[place] SCLERAE X 4 DAYS HPI This is a 38-year-old male with a past medical history of chronic daily alcohol and substance abuse who initially presented for issues with erectile dysfunction. The patient endorses difficulty maintaining an erection over the last several days. He does not endorse any trauma or injury. He does not endorse any dysuria or hematuria or urgency or frequency or urethral discharge. He does not believe he could have a sexually transmitted infection. He does not have any scrotal tenderness or testicular swelling. The patient does have scleral icterus. When asked about this, the patient admits to drinking 6-8 40 ounce beers daily. He does report mild chronic epigastric and right upper quadrant discomfort and reports that he is occasionally constipated. The patient is tachycardic and mildly tremulous. His last drink was this morning, and he feels like he is going through mild withdrawal. The patient denies feeling sick recently. The patient denies fever or chills. The patient has had no headache or vision changes. The patient does not endorse neck or back pain. The patient denies lightheadedness or dizziness. The patient has had no chest pain or trouble breathing. The patient denies nausea or vo miting. The patient denies changes to bowel movements. He denies black or bloody or tarry stools. He denies diarrhea. The patient has had no focal deficits. The patient has had no weakness or numbness or tingling to the face or extremities. ROS All systems reviewed and are negative except as per history of present illness. Medications Home Meds Reported Medications Cholecalciferol* (Vitamin D*) 400 Unit Tablet, 800 UNIT PO DAILY, TAB 06/24/17 Discontinued Scripts Lorazepam* (Lorazepam*) 1 Mg Tablet, 1 MG PO QHS for ins, #12 TAB Prov:LIZ MCMAHON DO 06/24/17 Allergies Allergies: Coded Allergies: No Known Allergy (Unverified , 06/30/18) PMhx/Soc Medical and Surgical Hx: pt denies Medical Hx, pt denies Surgical Hx History of Surgery: No Anesthesia Reaction: No Hx 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 Disorder: No Hx Respiratory Disorders: No Hx Cardiac Disorders: No Hx Psychiatric Problems: No Hx Alcohol Use: Yes Hx Substance Use: Yes (marijuana) Hx Tobacco Use: Yes Smoking Status: Current every day smoker FmHx Family History: No diabetes Physical Exam Vitals Vital Signs Date Temp Pulse Resp B/P (MAP) Pulse Ox O2 O2 Flow FiO2 Time Delivery Rate 06/30/18 99.8 112 24 116/77 98 16:52 (90) Physical Exam Const: No apparent distress, well-developed, well-nourished Head: Normocephalic, Atraumatic Eyes: Scleral icterus. Extraocular movements intact. Pupils equal, round and reactive to light ENT: Normal External Ears, Nose and Mouth. Neck: Full range of motion. No meningismus. Resp: Clear to auscultation bilaterally, No wheezes, rales or rhonchi Cardio: Regular rate and rhythm. No murmurs, rubs or gallops Abd: Soft, non distended. Mild epigastric discomfort without exquisite tenderness. Normal bowel sounds : Normal penis and scrotum Skin: No petechiae or rashes. Mild jaundice. Back: No midline tenderness. No CVA tenderness Ext: No cyanosis, or edema Neur: Awake and alert, oriented 4. Cranial nerves intact. No facial droop. Normal strength, sensation and coordination. Psych: Normal Mood and Affect Result Diagram: 06/30/18 1756 06/30/18 1756 Results 24 hrs Laboratory Tests Test 06/30/18 17:56 White Blood Count 20.1 10^3/ul Red Blood Count 3.93 10^6/ul Hemoglobin 12.7 g/dl Hematocrit 35.5 % Mean Corpuscular Volume 90.3 fl Mean Corpuscular Hemoglobin 32.3 pg Mean Corpuscular Hemoglobin Concent 35.8 g/dl Red Cell Distribution Width 12.8 % Platelet Count 128 10^3/UL Mean Platelet Volume 11.2 fl Immature Granulocytes % 2.900 % Segmented Neutrophils % (Manual) 69 % Band Neutrophils % (Manual) 3 % Lymphocytes % (Manual) 9 % Monocytes % (Manual) 18 % Metamyelocytes % (manual) 1 % Nucleated Red Blood Cells % 0.0 /100WBC Immature Granulocytes # 0.580 10^3/ul Neutrophils # (Manual) 14.0 10^3/ul Band Neutrophils # 0.6 10^3/ul Lymphocytes (Manual) 1.8 10^3/ul Monocytes # (Manual) 3.6 10^3/ul Metamyelocytes # 0.2 10^3/ul Platelet Estimate DECREASED Giant Platelets 1 % Urine Color LINDA Urine Clarity SLIGHTLY CLOUDY Urine pH 6.0 Urine Specific [place] 1.007 Urine Ketones NEGATIVE mg/dL Urine Nitrite NEGATIVE mg/dL Urine Bilirubin NEGATIVE mg/dL Urine Urobilinogen 2+ mg/dL Urine Leukocyte Esterase 3+ Gerri/ul Urine Microscopic RBC 2 /HPF Urine Microscopic WBC 124 /HPF Urine Bacteria MANY /HPF Urine Hemoglobin 3+ mg/dL Urine Glucose 3+ mg/dL Urine Total Protein NEGATIVE mg/dl Sodium Level 124 mmol/L Potassium Level 3.5 mmol/L Chloride Level 87 mmol/L Carbon Dioxide Level 23 mmol/L Anion Gap 14 Blood Urea Nitrogen 10 mg/dl Creatinine 0.89 mg/dl Est Glomerular Filtrat Rate mL/min > 60 mL/min Glucose Level 383 mg/dl Calcium Level 8.8 mg/dl Total Bilirubin 5.2 mg/dl Direct Bilirubin 3.20 mg/dl Indirect Bilirubin 2.0 mg/dl Aspartate Amino Transf (AST/SGOT) 92 IU/L Alanine Aminotransferase (ALT/SGPT) 63 IU/L Alkaline Phosphatase 186 IU/L Total Protein 8.1 g/dl Albumin 3.2 g/dl Globulin 4.90 g/dl Albumin/Globulin Ratio 0.65 Lipase 446 U/L Procedures/MDM MDM The patient's presentation warrants further investigation. Previous medical records, if available, were reviewed. LABS The patient's laboratory testing was obtained and reviewed. No emergent treatment was required unless described below. CBC: Leukocytosis, potentially reactive but concerning for a possible infection. Normocytic anemia with thrombocytopenia, likely related to alcoholic liver disease. Chemistry: Hyponatremia, hyperbilirubinemia with transaminitis concerning for obstructive cholestatic liver disease, hypoalbuminemia, all weekly related to alcoholic liver disease. Hyperglycemia without DKA. No E/o severe acidosis or alkalosis or renal failure. Lipase: Elevated but not 3 times normal, low clinical suspicion for acute pancreatitis. Urine: E/o acute infection with hematuria EKG EKG read by me: Rate/Rhythm: Regular rate and rhythm at a rate of 98 bpm Intervals: Normal [place]: Normal Impression: LVH. Nonspecific repolarization changes without evidence of acute ischemia. No arrhythmia IMAGING Imaging and Radiology interpretation reviewed. US Liver Pending CXR Pending TREATMENT/DISPOSITION The patient's initial primary complaint was regarding concerns of erectile dysfunction. This could be related to the urinary tract infection as diagnosed today. This could also be related to his chronic alcohol abuse as well as his liver failure. This is not an emergency and may be followed up in an outpatient setting. There is no evidence of trauma or injury. The patient denies any possibility of a sexually transmitted infection. Unfortunately on exam, the patient has evidence of liver disease. The patient's workup reveals liver failure and sequelae from liver failure, likely related to his alcoholism. I do feel that this requires further workup in the hospital, as patients with liver failure are at risk of acute decompensation. The patient does have a leukocytosis with a source of a urinary tract infection. The patient does not appear systemically ill, and I have very low suspicion for sepsis. The patient is tachycardic, but I suspect that the patient's tachycardia is likely related to mild alcohol withdrawal as he is not drunk alcohol from this morning and reports that he feels like he is withdrawing. Blood cultures were sent off and the patient was treated with a liter of IV fluids and started on Rocephin. The patient was also given a dose of Ativan to help with his mild alcohol withdrawal. The patient's heart rate improved after treatment. The patient's blood pressure has remained stable in the emergency d epartment. The patient does not appear systemically ill, and I have very low suspicion for sepsis. Given the patient's acute liver failure, lactic acid would be unreliable as it is often elevated in liver disease. I do not feel that sending off a lactic acid is warranted at this time given my low suspicion for sepsis. The patient does have hyperglycemia with an elevated lipase. I am concerned about the possibility of a new diagnosis of diabetes. The patient's pancreas could certainly be affected by his chronic alcohol abuse. That said, the lipase is not 3 times the upper limit of normal. I do not suspect acute pancreatitis today. ADMISSION At this time, I feel that the patient requires admission for further evaluation and management. The patient will be admitted to panel in accordance with the patient's insurance. The patient was accepted by Dr. Dumont at 8:39 PM on June 30, 2018. He is aware of the pending studies. Disclaimer: Inadvertent spelling and grammatical errors are likely due to EHR/dictation software use and do not reflect on the overall quality of patient care. Note that the electronic time recorded on this note does not necessarily reflect the actual time of the patient encounter. Departure Diagnosis: Primary Impression: Acute liver failure Hepatic coma status: without hepatic coma Qualified Codes: K72.00 - Acute and subacute hepatic failure without coma Additional Impressions: Alcoholic liver disease Obstructive cholestatic liver disease Urinary tract infection Urinary tract infection type: acute cystitis Hematuria presence: with hematuria Qualified Codes: N30.01 - Acute cystitis with hematuria Erectile dysfunction Erectile dysfunction type: unspecified Qualified Codes: N52.9 - Male erectile dysfunction, unspecified Leukocytosis Leukocytosis type: unspecified Qualified Codes: D72.829 - Elevated white blood cell count, unspecified Normocytic anemia Thrombocytopenia Hyponatremia Hyperglycemia Hyperbilirubinemia Transaminitis Hypoalbuminemia Elevated lipase Alcohol withdrawal Complication of substance-induced condition: with unspecified complication Qualified Codes: F10.239 - Alcohol dependence with withdrawal, unspecified Tachycardia Condition: Serious BALTA BREEN MD Jun 30, 2018 20:59
[2018-06-30] MEDS ORDERED: IOHEXOL 300MG/ML 150 ML BTL ONE (21:22)
[2018-06-30] MEDS ORDERED: SOD CHLORIDE 0.9% 100 ML ONE (21:22)
[2018-06-30 22:21] VITALS: BP 132/68; PULSE 104; RESP 18
[2018-06-30] MEDS ORDERED: GLUCAGON 1 MG INJ IM PRN (23:45)
[2018-06-30] MEDS ORDERED: GLUCOSE GEL 15 GRAM TUBE PO PRN ×2 (23:45)
[2018-06-30] MEDS ORDERED: DEXTROSE 50% 50 ML SYRINGE IV PRN ×2 (23:45)
[2018-06-30] MEDS ORDERED: GLUCOSE GEL 15 GRAM TUBE BUCCAL PRN (23:45)
[2018-07-01] MEDS: THIAMINE 100 MG TAB PO SCH ×4 (00:25→21:14)
[2018-07-01] MEDS: LACTULOSE 30ML CUP PO SCH ×4 (00:25→21:14)
[2018-07-01] MEDS: PIPER-TAZO 3.375 GM IV (PMX) 100 ML IVPB SCH ×4 (00:26→18:09)
[2018-07-01] MEDS ORDERED: INSULIN ASPART [NOVOLOG] 3 ML PEN SC SCH (01:00)
[2018-07-01] MEDS: ACCU-CHEK XX SCH (02:00)
[2018-07-01 02:28] VITALS: BP 127/65; PULSE 129; RESP 19
[2018-07-01] MEDS ORDERED: POTASSIUM CHLORIDE (SR) 20 MEQ TAB PO ONE (03:02)
[2018-07-01] MEDS ORDERED: 1/2 NS + KCL 20 MEQ 1,000 ML IV SCH ×2 (04:00→08:30)
[2018-07-01] MEDS: INSULIN ASPART [NOVOLOG] 3 ML PEN SC SCH ×5 (06:02→21:00)
--- NOTE | 2018-07-01 06:23 | HP ---
Date/Time of Note Date/Time of Note DATE: 07/01/18 TIME: 06:20 Assessment/Plan VTE Prophylaxis SCD applied (from Nsg): Yes Pharmacological prophylaxis: NA/contraindicated Pharm contraindication: low risk/ambulating Lines/Catheters IV Catheter Type (from Nrsg): Saline Lock Assessment/Plan Hospital Course This is a 30-year-old male being admitted to the [facility] floor for: #1 acute alcoholic hepatitis: Discriminant score approximately 35. Will initiate Solu-Medrol 40 mg IV daily for course of 28 days. Daily coags and liver function studies to assess efficacy of steroids. Initiate lactulose. Will hold off on initiating spironolactone at the current time given patient's hydration status and hyponatremia. Hepatitis panel. CT scan does show signs of possible mild cirrhosis. Will obtain MRI to further evaluate. PRN Ativan. We will keep the patient n.p.o. except meds. Consult GI #2 transaminitis with hyperbilirubinemia: Likely secondary to #1, right upper quadrant ultrasound shows possible acalculous cholecystitis. We will also obtain a MRCP to further evaluate. #3 sepsis: Likely secondary to underlying UTI, acalculus cholecystitis. Zosyn IV every 6 hours. Will obtain HIDA scan to further assess possible a calculus cholecystitis. I did speak with the general surgeon Dr. Michele who at the current time does not recommend surgery given patient's underlying liver disease. Patient may need cholecystostomy tube if he indeed does have a calculus cholecystitis. Await culture results. #4 suspected acalculus cholecystitis: Currently on Zosyn, HIDA scan has been ordered. Possible need for cholecystostomy tube depending on results. We will keep the patient n.p.o. except meds at the current time until we get the results of HIDA scan. #5 urinary tract infection: Await urine culture, currently on Zosyn #6 hyponatremia: Patient appears to be dehydrated, volume down. Will treat with a bolus of normal saline followed by half-normal saline with goal of not increasing sodium more than 6-8meq in the first 24 hours. will consult nephrology Dr. Lindo #7 alcohol abuse: Patient drinks approximately 6-8 beers a day. Monitor for withdrawal symptoms. PRN Ativan. Encourage alcohol cessation. Thiamine folic acid multivitamin #8 Elevated blood sugars: check a1c, mild iss #9 DVT GI prophylaxis: SCDs, Protonix Further treatment strategy will be implemented as per the clinical course Result Diagram: 07/01/18 0429 07/01/18 0101 Results 24hrs Laboratory Tests Test 06/30/18 17:56 06/30/18 20:56 06/30/18 21:09 07/01/18 01:01 White Blood Count 20.1 #H Red Blood Count 3.93 L Hemoglobin 12.7 L Hematocrit 35.5 L Mean Corpuscular 90.3 Volume Mean Corpuscular 32.3 Hemoglobin Mean Corpuscular 35.8 Hemoglobin Concen t Red Cell 12.8 Distribution Width Platelet Count 128 #L Mean Platelet 11.2 H Volume Immature 2.900 H Granulocytes % Segmented 69 Neutrophils % (Manual) Band Neutrophils 3 % (Manual) Lymphocytes % 9 L (Manual) Monocytes % 18 H (Manual) Metamyelocytes % 1 H (manual) Nucleated Red 0.0 Blood Cells % Immature 0.580 H Granulocytes # Neutrophils # 14.0 H (Manual) Band Neutrophils 0.6 # Lymphocytes 1.8 (Manual) Monocytes # 3.6 H (Manual) Metamyelocytes # 0.2 H Platelet Estimate DECREASED Giant Platelets 1 H Prothrombin Time 17.7 H Prothrombin Time 1.4 Ratio INR International 1.45 Normalized Ratio Activated 37.1 H Partial Thrombopl ast Time Urine Color LINDA Urine Clarity SLIGHTLY CLOUDY A Urine pH 6.0 Urine Specific 1.007 [place] Urine Ketones NEGATIVE Urine Nitrite NEGATIVE Urine Bilirubin NEGATIVE Urine 2+ H Urobilinogen Urine Leukocyte 3+ H Esterase Urine Microscopic 2 RBC Urine Microscopic 124 H WBC Urine Bacteria MANY A Urine Hemoglobin 3+ H Urine Glucose 3+ H Urine Total NEGATIVE Protein Sodium Level 124 L 128 L Potassium Level 3.5 3.0 L Chloride Level 87 L 89 L Carbon Dioxide 23 25 Level Anion Gap 14 H 14 H Blood Urea 10 10 Nitrogen Creatinine 0.89 0.83 Est Glomerular > 60 > 60 Filtrat Rate mL/min Glucose Level 383 H 236 #H Calcium Level 8.8 8.2 L Total Bilirubin 5.2 H 5.8 H Direct Bilirubin 3.20 H 3.90 H Indirect 2.0 H 1.9 H Bilirubin Aspartate Amino 92 H 99 H Transf (AST/SGOT) Alanine 63 66 Aminotransferase (ALT/SGPT) Alkaline 186 H 180 H Phosphatase Total Protein 8.1 7.8 Albumin 3.2 L 3.0 L Globulin 4.90 H 4.80 H Albumin/Globulin 0.65 0.62 Ratio Lipase 446 H Ammonia 40 H Ethyl Alcohol 83.0 H Level Urine Opiates Negative Screen Urine Negative Barbiturates Urine Negative Amphetamines Screen Urine Negative Benzodiazepines Screen Urine Cocaine Negative Screen Urine Positive Cannabinoids Test 07/01/18 01:22 07/01/18 03:31 07/01/18 04:29 07/01/18 04:31 Bedside Glucose 243 H Lactic Acid Level 1.9 White Blood Count 24.4 #H Red Blood Count 3.39 L Hemoglobin 10.8 L Hematocrit 30.8 L Mean Corpuscular 90.9 Volume Mean Corpuscular 31.9 Hemoglobin Mean Corpuscular 35.1 Hemoglobin Concen t Red Cell 13.1 Distribution Width Platelet Count 123 L Mean Platelet 11.3 H Volume Immature 3.200 H Granulocytes % Neutrophils % Lymphocytes % Monocytes % Eosinophils % Basophils % Nucleated Red 0.0 Blood Cells % Immature 0.780 H Granulocytes # Neutrophils # Lymphocytes # Monocytes # Eosinophils # Basophils # Nucleated Red Blood Cells # Hepatitis A Pending Antibody Total Hepatitis B Pending Surface Antigen Hepatitis B Core Pending Total Antibody Hepatitis C Pending Antibody Test 07/01/18 05:59 Bedside Glucose 199 HPI/ROS Admit Date/Time Admit Date/Time Jun 30, 2018 at 20:51 Hx of Present Illness cc: difficult to achieve erection This is a 38-year-old male with a past medical history of chronic daily alcohol use who initially presented for issues with erectile dysfunction and abdominal pain.. The patient endorses difficulty maintaining an erection over the last several days. He does not endorse any trauma or injury. He does not endorse any dysuria or hematuria or urgency or frequency or urethral discharge. He does not have any scrotal tenderness or testicular swelling. Patient was also noticed to have scleral icterus and jaundice on exam. When asked about drinking alcohol he did report approximately 6-8 beers a day. He did report that he he does report mild chronic epigastric and right upper quadrant discomfort and reports that he is occasionally constipated. He was noted to be tachycardic and mildly tremulous on exam. He reported that his last drink was yesterday morning. Partner is with him at the bedside and she does report that he is also been confused Allergies: NKDA Medications: None ROS Const: As per HPI Eyes : No pain discharge or redness or change in visual acuity ENT: No pain, sore throat, congestion, congestion, dysphagia or discharge Respiratory: No shortness of breath, cough, sputum, wheezing, or pleuritic pain Cardiovascular: No chest pain, palpitation, PND, or edema GI : As per HPI Genitourinary: As per HPI Musculoskeletal: No joint pain, back pain, neck pain, restricted range of motion in neck or joints Skin: No rash, bruising or hives Neuro: No headache, dizziness, syncope, seizure, focal weakness Endocrine: No polyuria, polydipsia, temperature intolerance Psych: No hallucination, depression, anxiety or suicidal ideation PMH/Family/Social Past Medical History Vitamin D def Medications Current Medications IV Flush (NS 3 ml) 3 ml PER PROTOCOL IV ; Start 06/30/18 at 21:00 Ondansetron HCl (Zofran Inj) 4 mg Q6H PRN IV NAUSEA/VOMITING Last administered on 06/30/18at 22:54; Admin Dose 4 MG; Start 06/30/18 at 21:00 Acetaminophen (Tylenol Tab) 650 mg Q6H PRN PO .PAIN 1-3 OR TEMP Last administered on 07/01/18at 02:40; Admin Dose 650 MG; Start 06/30/18 at 21:00 Docusate Sodium (Colace) 100 mg Q12H PO Last administered on 06/30/18at 21:04; Admin Dose 100 MG; Start 06/30/18 at 21:00 Bisacodyl (Dulcolax) 5 mg DAILY PO ; Start 07/01/18 at 09:00 Lorazepam (Ativan) 2 mg Q2H PRN IV CONTROL WITHDRAWAL SYMPTOMS; Start 06/30/18 at 21:00 Piperacillin Sod/ Tazobactam Sod 100 ml @ 200 mls/hr Q6 IVPB Last administered on 07/01/18at 05:57; Admin Dose 200 MLS/HR; Start 07/01/18 at 00:00 Thiamine HCl (Vitamin B1) 200 mg DAILY PO Last administered on 07/01/18at 00:25; Admin Dose 200 MG; Start 06/30/18 at 23:30 Lactulose (Enulose) 20 gm Q8 PO Last administered on 07/01/18at 06:03; Admin Dose 20 GM; Start 07/01/18 at 00:00 Diagnostic Test (Pha) (Accu-Chek) 1 ea 02 XX ; Start 07/01/18 at 02:00 Miscellaneous Information 1 ea NOTE XX ; Start 06/30/18 at 23:45 Glucose (Glutose) 15 gm Q15M PRN PO DECREASED GLUCOSE; Start 06/30/18 at 23:45 Glucose (Glutose) 22.5 gm Q15M PRN PO DECREASED GLUCOSE; Start 06/30/18 at 23:45 Dextrose (D50w Syringe) 25 ml Q15M PRN IV DECREASED GLUCOSE; Start 06/30/18 at 23:45 Dextrose (D50w Syringe) 50 ml Q15M PRN IV DECREASED GLUCOSE; Start 06/30/18 at 23:45 Glucagon (Glucagen) 1 mg Q15M PRN IM DECREASED GLUCOSE; Start 06/30/18 at 23:45 Glucose (Glutose) 15 gm Q15M PRN BUCCAL DECREASED GLUCOSE; Start 06/30/18 at 23:45 Potassium Chloride/Sodium Chloride 1,000 ml @ 80 mls/hr [id number] IV Last administered on 07/01/18at 05:35; Admin Dose 80 MLS/HR; Start 07/01/18 at 04:00; Stop 07/01/18 at 16:29 Methylprednisolone Sodium Succinate (Solu-Medrol) 40 mg DAILY IV ; Start 07/01/18 at 04:31 Insulin Aspart (Novolog Insulin Pen) NOVOLOG *MILD* ALGORI... Q4 SC Last administered on 07/01/18at 06:02; Admin Dose 2 UNIT; Start 07/01/18 at 05:00 Coded Allergies: No Known Allergy (Unverified , 06/30/18) Past Surgical History Left wrist/arm surgery Family History Significant Family History: cancer, diabetes Social History Alcohol Use: heavy Smoking Status: Never smoker Drug Use: none Exam/Review of Systems Vital Signs Vitals Vital Signs Date Temp Pulse Resp B/P (MAP) Pulse Ox O2 O2 Flow FiO2 Time Delivery Rate 07/01/18 102.8 02:40 07/01/18 129 19 127/65 99 02:28 (85) 06/30/18 Room Air 21:48 Intake and Output 06/30/18 06/30/18 07/01/18 1515:00 23:00 07:00 IntakeIntake Total 100 ml BalanceBalance 100 ml Exam Exam General: Patient is currently lying in bed, he appears to be mildly tremulous HEENT: Atraumatic, normocephalic. The pupils are equal, round and reactive. Extraocular motor are intact, scleral icterus Neck: Supple with full range of motion. No rigidity or meningismus Chest: Nontender Lungs: Clear to auscultation bilaterally no crackles rales or wheezing Heart: Sinus tachycardia Abdomen: Soft , mild tenderness of the right upper quadrant nondistended , bowel sounds are present. No guarding no rebound tenderness , Extremities: Normal to inspection, no edema no cyanosis Neurologic: Normal mental status, speech normal, cranial nerves II through XII are intact, motor and sensory are intact, no focal weakness Skin: Jaundice noted Psych: Mildly tremulous, Additional Comments PROCEDURE: US LIMITED ABDOMEN RIGHT UPPER QUADRANT CLINICAL INDICATION: Liver failure TECHNIQUE: Multiple real-time images were acquired of the patient's right upper quadrant utilizing a high resolution transducer. COMPARISON: None FINDINGS: The pancreas is poorly visualized but otherwise appears to be within limits. The aorta and IVC are within normal limits. Hepatic morphology is within limits. There is 13 as echotexture of the liver. The liver measures 17.3 cm in length. There is normal hepatic pedal flow of the portal vein. The gallbladder is visualized. Gallbladder sludge is noted. This gallbladder wall thickening. The common bile duct is with normal limits measuring 2.6 mm. The right kidney measures 12.6 cm. The cortex and parenchymal with normal limits. No evidence of obstruction hydronephrosis. IMPRESSION: 1. Gallbladder sludge and thickening of the gallbladder wall. Cannot exclude acalculous cholecystitis. No definitive gallstones noted at this time. Common bile duct is within normal limits. 2. Hepatomegaly and fatty liver. 3. Partially visualized pancreas which otherwise appears to be within normal limits. RPTAT: AARR Physician Arleth Date Time Electronically viewed and signed by Physician Arleth on 06/30/2018 22:09 JL/ CC: BALTA BREEN MD [id number] PROCEDURE: CT abdomen and pelvis with contrast CLINICAL INDICATION: Constipation. Abdominal pain. Transaminases TECHNIQUE: Continues 2.5 mm axial images were obtained from the domes of the diaphragms to the inferior pubic rami following intravenous injection of 100 cc of Isovue 300. The calculated dose length product (DLP) = 391.75 mGy-cm. Exam CTDlvol = 6.46 mGy. One or more of the following dose reduction techniques were used: Automated exposure control, adjustment of the mA and or KV according to patient size, or use of iterative reconstruction technique. DICOM images are available. COMPARISON: None. FINDINGS: Images through the lung bases demonstrate mild basilar atelectasis. No pleural pericardial fluid is seen. Gallbladder is physiologically distended. There is mild hyperemia and thickening of the gallbladder wall. This is nonspecific finding. Correlation with ultrasound is recommended. No calcified gallstones are seen. There is mild fatty change of the liver. No biliary duct dilatation is identified. Pancreas, spleen, and adrenals are within normal limits. Evaluation of the kidneys demonstrate no evidence of obstructive uropathy. There is mild right perinephric stranding. This may suggest pyelonephritis in the right clinical setting and correlation with urinalysis is recommended. Aorta is normal in caliber without aneurysmal dilatation or dissection. No pathologically enlarged mesenteric lymph nodes are seen. There are prominent number of reactive mesenteric lymph nodes. Stomach and small bowel loops are within normal limits. No small bowel dilatation or obstruction. No free fluid, free air, abscess is noted in the upper abdomen There are prominent venous varices in the right upper abdomen along the hepatic flexure with adjacent mesenteric stranding is visualized. Gastric varices and early recannulation of the umbilical vein. The pattern is suggestive of early portal hypertension and correlation with liver biopsy is recommended to exclude cirrhosis. The portal vein is patent. CT pelvis: Images through the pelvis demonstrate no free fluid, free air, abscess. Bladder is significantly distended but otherwise unremarkable. Prostate and seminal vesicles are within normal limits. Evaluation of the colon demonstrates no diverticulosis, diverticulitis or acute colitis. The appendix is not visualized as a separate structure. There are no secondary signs of appendicitis. No pathologically enlarged iliac chain lymph nodes are seen. There is slightly advanced for age bilateral SFA calcification. No destructive bony lesions are seen IMPRESSION: 1. Prominent mesenteric venous varices surrounding the right colon, and s tomach. There is also early recannulation of the umbilical vein and slight enlargement of bilateral gonadal veins. The pattern is suggestive of early portal hypertension possibly related to mild cirrhosis. Correlation with liver biopsy is recommended. The portal vein is patent on the current study. 2. There is mild stranding of the mesentery along the right pericolic gutter likely secondary to venous congestion. 3. Mild hyperemia and thickening of the gallbladder wall. This is nonspecific finding and correlation with ultrasound is recommended. 3. Mild right perinephric stranding is may be related to venous congestion versus pyelonephritis. Correlation with urinalysis is recommended. 4. No obstructive uropathy. 5. No secondary signs of appendicitis. 6. No ascites, abscess, or free air. 7. Moderately distended bladder. 8. Early calcification of bilateral superficial femoral arteries RPTAT: HH .Godfrey Taveras MD, MD Date Time Electronically viewed and signed by .Godfrey Taveras MD, MD on 06/30/2018 21:55 .W/ CC: APRIL SALAZAR [id number] PROCEDURE: XR Chest. CLINICAL INDICATION: Shortness of breath TECHNIQUE: Single portable view of the chest was obtained COMPARISON: No priors for comparison FINDINGS: The trachea is midline. The cardiac silhouette is mildly enlarged and pulmonary vascularity are within normal limits. The lungs are clear. The costophrenic angles are sharp. IMPRESSION: 1. Mild cardiomegaly. No evidence of acute cardiopulmonary disease. RPTAT: AAPP Physician Arleth Date Time Electronically viewed and signed by Physician Arleth on 06/30/2018 22:07 JL/ CC: BALTA BREEN MD [id number] APRIL SALAZAR Jul 01, 2018 06:23
[2018-07-01] MEDS: METHYLPREDNISOLONE 40 MG INJ IV SCH (06:28)
[2018-07-01] MEDS: LORAZEPAM 2 MG INJ IV PRN ×5 (07:14→20:02)
[2018-07-01 07:37] VITALS: BP 109/62; PULSE 101; RESP 18
[2018-07-01] MEDS: FOLIC ACID 1 MG TAB PO SCH ×2 (08:16→12:16)
[2018-07-01] MEDS: MULTIVITAMINS THERAPEUTIC TAB PO SCH ×2 (08:16→12:16)
[2018-07-01] MEDS: DOCUSATE SODIUM 100 MG CAP PO SCH ×3 (08:16→21:14)
[2018-07-01] MEDS: BISACODYL (EC) 5 MG TAB PO SCH ×2 (08:16→12:13)
--- NOTE | 2018-07-01 11:57 | CONS ---
Assessment/Plan Assessment/Plan Assessment/Plan (Daily) Assessment: Alcoholic hepatitis Jaundice Elevated AST Hyperbilirubinemia Fatty liver Portal gastropathy on CT Rule out acholic cholecystitis UTI Leukocytosis Alcohol abuse Plan: HIDA/MRCP ordered Monitor LFTs Supportive treatment May start clear liquid diet after MRCP is done Discussed treatment of alcoholic hepatitis/fatty liver and quitting alcohol. Recommend EGD for screening for esophageal varices once the patient is stable versus outpatient Patient seen in collaboration with Dr. Perkins Consultation Date/Type/Reason Admit Date/Time Jun 30, 2018 at 20:51 Date of Consultation: Jul 01, 2018 Type of Consult GI Reason for Consultation Jaundice Date/Time of Note DATE: 07/01/18 TIME: 11:32 Hx of Present Illness This is a 38-year-old male with no significant medical history who was admitted for suprapubic pain and found to have UTI. Patient has been complaining of suprapubic pain for 5 days with one episode of hematuria. Patient was found to be jaundiced with elevated AST and bilirubin of 6.7. White blood count is elevated 24,000. Hemoglobin is 10.8. Ultrasound shows possible acalculous cholecystitis and fatty liver. CT scan of the abdomen shows mesenteric varices around the right colon and the stomach suggestive of portal gastropathy. Hepatitis serologies negative. HIDA scan and MRCP's are ordered. Notably HIDA scan with bilirubin greater than 5 is not reliable. Discriminant function test is 26. Patient is currently on steroids. Patient states he has been drinking 6 packs of beer daily for the past 10 years. Patient has generalized jaundice and icteric sclera. Patient denies any history of EGD or colonoscopy in the past. Recommend EGD once the patient is stable inpatient versus outpatient for screening for esophageal varices. We will continue observation. Gastrointestinal: no complaints (See HPI) Past Medical History Medical History: no pertinent history Home Meds Reported Medications Cholecalciferol* (Vitamin D*) 400 Unit Tablet, 800 UNIT PO DAILY, TAB 06/24/17 Discontinued Scripts Lorazepam* (Lorazepam*) 1 Mg Tablet, 1 MG PO QHS for ins, #12 TAB Prov:LIZ MCMAHON DO 06/24/17 Medications Current Medications IV Flush (NS 3 ml) 3 ml PER PROTOCOL IV ; Start 06/30/18 at 21:00 Ondansetron HCl (Zofran Inj) 4 mg Q6H PRN IV NAUSEA/VOMITING Last administered on 06/30/18at 22:54; Admin Dose 4 MG; Start 06/30/18 at 21:00 Acetaminophen (Tylenol Tab) 650 mg Q6H PRN PO .PAIN 1-3 OR TEMP Last administered on 07/01/18at 02:40; Admin Dose 650 MG; Start 06/30/18 at 21:00 Docusate Sodium (Colace) 100 mg Q12H PO Last administered on 06/30/18at 21:04; Admin Dose 100 MG; Start 06/30/18 at 21:00 Bisacodyl (Dulcolax) 5 mg DAILY PO ; Start 07/01/18 at 09:00 Lorazepam (Ativan) 2 mg Q2H PRN IV CONTROL WITHDRAWAL SYMPTOMS Last administered on 07/01/18at 07:14; Admin Dose 2 MG; Start 06/30/18 at 21:00 Piperacillin Sod/ Tazobactam Sod 100 ml @ 200 mls/hr Q6 IVPB Last administered on 07/01/18at 05:57; Admin Dose 200 MLS/HR; Start 07/01/18 at 00:00 Lactulose (Enulose) 20 gm Q8 PO Last administered on 07/01/18at 06:03; Admin Dose 20 GM; Start 07/01/18 at 00:00 Diagnostic Test (Pha) (Accu-Chek) 1 ea 02 XX ; Start 07/01/18 at 02:00 Miscellaneous Information 1 ea NOTE XX ; Start 06/30/18 at 23:45 Glucose (Glutose) 15 gm Q15M PRN PO DECREASED GLUCOSE; Start 06/30/18 at 23:45 Glucose (Glutose) 22.5 gm Q15M PRN PO DECREASED GLUCOSE; Start 06/30/18 at 23:45 Dextrose (D50w Syringe) 25 ml Q15M PRN IV DECREASED GLUCOSE; Start 06/30/18 at 23:45 Dextrose (D50w Syringe) 50 ml Q15M PRN IV DECREASED GLUCOSE; Start 06/30/18 at 23:45 Glucagon (Glucagen) 1 mg Q15M PRN IM DECREASED GLUCOSE; Start 06/30/18 at 23:45 Glucose (Glutose) 15 gm Q15M PRN BUCCAL DECREASED GLUCOSE; Start 06/30/18 at 23:45 Methylprednisolone Sodium Succinate (Solu-Medrol) 40 mg DAILY IV Last ad ministered on 07/01/18at 06:28; Admin Dose 40 MG; Start 07/01/18 at 04:31 Insulin Aspart (Novolog Insulin Pen) NOVOLOG *MILD* ALGORI... Q4 SC Last administered on 07/01/18at 08:23; Admin Dose 2 UNIT; Start 07/01/18 at 05:00 Multivitamins Therapeutic (Theragran) 1 tab DAILY PO ; Start 07/01/18 at 09:00 Folic Acid (Folic Acid) 1 mg DAILY PO ; Start 07/01/18 at 09:00 Thiamine HCl (Vitamin B1) 200 mg BID PO ; Start 07/01/18 at 21:00 Allergies: Coded Allergies: No Known Allergy (Unverified , 06/30/18) Social History Alcohol Use: heavy Smoking Status: Never smoker Drug Use: none Exam/Review of Systems Exam Vitals Vital Signs Date Temp Pulse Resp B/P (MAP) Pulse Ox O2 O2 Flow FiO2 Time Delivery Rate 07/01/18 97.9 101 18 109/62 97 07:37 (78) 06/30/18 Room Air 21:48 Intake and Output 06/30/18 06/30/18 07/01/18 1515:00 23:00 07:00 IntakeIntake Total 200 ml BalanceBalance 200 ml Exam PHYSICAL EXAMINATION: GENERAL: Well developed, jaundice , tremors , well nourished, alert & oriented x 3, in no acute distress SKIN: No lesions, no stigmata chronic liver disease, no evidence of bleeding diathesis LYMPHATIC: No palpable lymphadenopathy. HEAD: Normocephalic, atraumatic, no tenderness. EYES: Pupils equal reactive to light and accommodation, full extraocular movements, sclera-icteric, no discharge. EARS/NOSE AND THROAT: Ears normal, nose normal, oropharynx normal, oral membranes well hydrated without lesions. NECK: Supple, no masses, thyroid normal, JVP within normal limits, carotids normal without bruits. CHEST: Inspection within normal limits. CARDIOVASCULAR: Heart: Regular rate and rhythm, no murmurs, gallops or rubs. Peripheral pulses present within normal limits, no cyanosis, clubbing or edemas. No pulsatile abdominal mass RESPIRATORY: Lungs clear to auscultation and percussion, no wheezing, no rubs GASTROINTESTINAL AND LIVER: Abdomen: Soft, suprapubic tenderness, non-distended, no hernias, no masses, no organomegaly, no ascites, no guarding, no rebound tenderness, normoactive bowel sounds. Rectal: Deferred. GENITOURINARY: [Male genitalia within normal limits. EXTREMITIES: No cyanosis, clubbing or edema. Results Result Diagram: 07/01/18 0429 07/01/18 0816 Results 24hrs Laboratory Tests Test 06/30/18 17:56 06/30/18 20:56 06/30/18 21:09 07/01/18 01:01 White Blood Count 20.1 #H Red Blood Count 3.93 L Hemoglobin 12.7 L Hematocrit 35.5 L Mean Corpuscular 90.3 Volume Mean Corpuscular 32.3 Hemoglobin Mean Corpuscular 35.8 Hemoglobin Concen t Red Cell 12.8 Distribution Width Platelet Count 128 #L Mean Platelet 11.2 H Volume Immature 2.900 H Granulocytes % Segmented 69 Neutrophils % (Manual) Band Neutrophils 3 % (Manual) Lymphocytes % 9 L (Manual) Monocytes % 18 H (Manual) Metamyelocytes % 1 H (manual) Nucleated Red 0.0 Blood Cells % Immature 0.580 H Granulocytes # Neutrophils # 14.0 H (Manual) Band Neutrophils 0.6 # Lymphocytes 1.8 (Manual) Monocytes # 3.6 H (Manual) Metamyelocytes # 0.2 H Platelet Estimate DECREASED Giant Platelets 1 H Prothrombin Time 17.7 H Prothrombin Time 1.4 Ratio INR International 1.45 Normalized Ratio Activated 37.1 H Partial Thrombopl ast Time Urine Color LINDA Urine Clarity SLIGHTLY CLOUDY A Urine pH 6.0 Urine Specific 1.007 [place] Urine Ketones NEGATIVE Urine Nitrite NEGATIVE Urine Bilirubin NEGATIVE Urine 2+ H Urobilinogen Urine Leukocyte 3+ H Esterase Urine Microscopic 2 RBC Urine Microscopic 124 H WBC Urine Bacteria MANY A Urine Hemoglobin 3+ H Urine Glucose 3+ H Urine Total NEGATIVE Protein Sodium Level 124 L 128 L Potassium Level 3.5 3.0 L Chloride Level 87 L 89 L Carbon Dioxide 23 25 Level Anion Gap 14 H 14 H Blood Urea 10 10 Nitrogen Creatinine 0.89 0.83 Est Glomerular > 60 > 60 Filtrat Rate mL/min Glucose Level 383 H 236 #H Calcium Level 8.8 8.2 L Total Bilirubin 5.2 H 5.8 H Direct Bilirubin 3.20 H 3.90 H Indirect 2.0 H 1.9 H Bilirubin Aspartate Amino 92 H 99 H Transf (AST/SGOT) Alanine 63 66 Aminotransferase (ALT/SGPT) Alkaline 186 H 180 H Phosphatase Total Protein 8.1 7.8 Albumin 3.2 L 3.0 L Globulin 4.90 H 4.80 H Albumin/Globulin 0.65 0.62 Ratio Lipase 446 H Ammonia 40 H Ethyl Alcohol 83.0 H Level Urine Opiates Negative Screen Urine Negative Barbiturates Urine Negative Amphetamines Screen Urine Negative Benzodiazepines Screen Urine Cocaine Negative Screen Urine Positive Cannabinoids Test 07/01/18 01:22 07/01/18 03:31 07/01/18 04:29 07/01/18 04:30 Bedside Glucose 243 H Lactic Acid Level 1.9 White Blood Count 24.4 #H Red Blood Count 3.39 L Hemoglobin 10.8 L Hematocrit 30.8 L Mean Corpuscular 90.9 Volume Mean Corpuscular 31.9 Hemoglobin Mean Corpuscular 35.1 Hemoglobin Concen t Red Cell 13.1 Distribution Width Platelet Count 123 L Mean Platelet 11.3 H Volume Immature 3.200 H Granulocytes % Neutrophils % Segmented 78 H Neutrophils % (Manual) Band Neutrophils 3 % (Manual) Lymphocytes % Lymphocytes % 2 L (Manual) Reactive 1 H Lymphocytes % (Manual) Monocytes % Monocytes % 11 (Manual) Eosinophils % Basophils % Metamyelocytes % 1 H (manual) Myelocytes % 1 H (Manual) Promyelocytes % 3 H (Manual) Nucleated Red 0.0 Blood Cells % Immature 0.780 H Granulocytes # Neutrophils # Neutrophils # 19.2 H (Manual) Band Neutrophils 0.7 H # Lymphocytes 0.4 L (Manual) Lymphocytes # Reactive 0.2 H Lymphocytes # Monocytes # Monocytes # 2.6 H (Manual) Eosinophils # Basophils # Metamyelocytes # 0.2 H Myelocytes # 0.2 H Promyelocytes # 0.7 H Nucleated Red Blood Cells # Toxic Granulation 1+ Platelet Estimate DECREASED Giant Platelets 5 H Polychromasia 2+ Anisocytosis 1+ Macrocytosis 1+ Prothrombin Time 19.1 H Prothrombin Time 1.5 Ratio INR International 1.60 Normalized Ratio Sodium Level 129 L Potassium Level 3.3 L Chloride Level 91 L Carbon Dioxide 26 Level Anion Gap 12 Blood Urea 11 Nitrogen Creatinine 0.92 Est Glomerular > 60 Filtrat Rate mL/min Glucose Level 196 Hemoglobin A1c 6.3 H Calcium Level 8.0 L Total Bilirubin 6.5 H Direct Bilirubin 4.50 H Indirect 2.0 H Bilirubin Aspartate Amino 111 H Transf (AST/SGOT) Alanine 69 Aminotransferase (ALT/SGPT) Alkaline 168 H Phosphatase Total Protein 7.1 Albumin 2.8 L Globulin 4.30 H Albumin/Globulin 0.65 Ratio Salicylates Level < 1.0 L Acetaminophen < 10.0 L Level Hepatitis B NEGATIVE Surface Antibody Test 07/01/18 04:31 07/01/18 05:59 07/01/18 08:16 07/01/18 08:20 Magnesium Level 1.7 Triglycerides 112 Level Cholesterol Level 73 L LDL Cholesterol, 41 Calculated HDL Cholesterol 10 L Cholesterol/HDL 7.3 Ratio Thyroid 0.748 Stimulating Hormone (TSH) Hepatitis A NEGATIVE Antibody Total Hepatitis B NEGATIVE Surface Antigen Hepatitis B Core NEGATIVE Total Antibody Hepatitis C NEGATIVE Antibody Bedside Glucose 199 209 Sodium Level 132 L Potassium Level 3.8 Chloride Level 97 Carbon Dioxide 27 Level Anion Gap 8 Blood Urea 13 Nitrogen Creatinine 0.92 Est Glomerular > 60 Filtrat Rate mL/min Glucose Level 223 H Calcium Level 8.4 Total Bilirubin 6.7 H Direct Bilirubin 4.80 H Indirect 1.9 H Bilirubin Aspartate Amino 103 H Transf (AST/SGOT) Alanine 69 Aminotransferase (ALT/SGPT) Alkaline 160 H Phosphatase Total Protein 7.2 Albumin 2.7 L Globulin 4.50 H Albumin/Globulin 0.60 Ratio Medications Medication Current Medications IV Flush (NS 3 ml) 3 ml PER PROTOCOL IV ; Start 06/30/18 at 21:00 Ondansetron HCl (Zofran Inj) 4 mg Q6H PRN IV NAUSEA/VOMITING Last administered on 06/30/18at 22:54; Admin Dose 4 MG; Start 06/30/18 at 21:00 Acetaminophen (Tylenol Tab) 650 mg Q6H PRN PO .PAIN 1-3 OR TEMP Last administered on 07/01/18at 02:40; Admin Dose 650 MG; Start 06/30/18 at 21:00 Docusate Sodium (Colace) 100 mg Q12H PO Last administered on 06/30/18at 21:04; Admin Dose 100 MG; Start 06/30/18 at 21:00 Bisacodyl (Dulcolax) 5 mg DAILY PO ; Start 07/01/18 at 09:00 Lorazepam (Ativan) 2 mg Q2H PRN IV CONTROL WITHDRAWAL SYMPTOMS Last administered on 07/01/18at 07:14; Admin Dose 2 MG; Start 06/30/18 at 21:00 Piperacillin Sod/ Tazobactam Sod 100 ml @ 200 mls/hr Q6 IVPB Last administered on 07/01/18at 05:57; Admin Dose 200 MLS/HR; Start 07/01/18 at 00:00 Lactulose (Enulose) 20 gm Q8 PO Last administered on 07/01/18at 06:03; Admin Dose 20 GM; Start 07/01/18 at 00:00 Diagnostic Test (Pha) (Accu-Chek) 1 ea 02 XX ; Start 07/01/18 at 02:00 Miscellaneous Information 1 ea NOTE XX ; Start 06/30/18 at 23:45 Glucose (Glutose) 15 gm Q15M PRN PO DECREASED GLUCOSE; Start 06/30/18 at 23:45 Glucose (Glutose) 22.5 gm Q15M PRN PO DECREASED GLUCOSE; Start 06/30/18 at 23:45 Dextrose (D50w Syringe) 25 ml Q15M PRN IV DECREASED GLUCOSE; Start 06/30/18 at 23:45 Dextrose (D50w Syringe) 50 ml Q15M PRN IV DECREASED GLUCOSE; Start 06/30/18 at 23:45 Glucagon (Glucagen) 1 mg Q15M PRN IM DECREASED GLUCOSE; Start 06/30/18 at 23:45 Glucose (Glutose) 15 gm Q15M PRN BUCCAL DECREASED GLUCOSE; Start 06/30/18 at 23:45 Methylprednisolone Sodium Succinate (Solu-Medrol) 40 mg DAILY IV Last administered on 07/01/18at 06:28; Admin Dose 40 MG; Start 07/01/18 at 04:31 Insulin Aspart (Novolog Insulin Pen) NOVOLOG *MILD* ALGORI... Q4 SC Last administered on 07/01/18at 08:23; Admin Dose 2 UNIT; Start 07/01/18 at 05:00 Multivitamins Therapeutic (Theragran) 1 tab DAILY PO ; Start 07/01/18 at 09:00 Folic Acid (Folic Acid) 1 mg DAILY PO ; Start 07/01/18 at 09:00 Thiamine HCl (Vitamin B1) 200 mg BID PO ; Start 07/01/18 at 21:00 LATRICE BAXTER NP Jul 01, 2018 11:42
[2018-07-01 13:09] VITALS: BP 106/55; PULSE 89; RESP 18
--- NOTE | 2018-07-01 13:47 | CONS ---
DATE OF ADMISSION: 06/30/2018 DATE OF CONSULTATION: TYPE OF CONSULTATION: Nephrology. REASON FOR CONSULTATION: Hyponatremia. PHYSICIAN REQUESTING CONSULT: Craig Salazar MD HISTORY OF PRESENT ILLNESS: This is a 38-year-old male with a past medical history of EtOH abuse, wh o presents to [facility] with abdominal pain. The patient states that over the pas t several days he was noted having yellowing of his eyes. The patient also describes having erectile dysfunction. The patient states that he has been drinking alcohol daily for approximately 6 to 8 be ers a day. He does also report mid epigastric pain and discomfort. On admission, the patient was no roman to be confused. Initial laboratory data showed a sodium of 124, BUN 10, creatinine 0.59. The pa tieedwin in the emergency room was given IV fluids, was given benzodiazepines and admitted to med/surg f or evaluation. In terms of patient's renal history, the patient has no prior history or any history of acute kidney injury. Upon admission, the patient was noted to be hyponatremic with sodium levels of 124 mEq which has been improving. During the past 12 hours, the patient's sodium levels have increased to 134 mEq per liter. The patient had adequate urinary output during this time. He denies any hemoptysis, hem atemesis or hematochezia. PAST MEDICAL HISTORY: History of EtOH use. FAMILY HISTORY: No family history of kidney disease. SOCIAL HISTORY: Positive alcohol use. MEDICATIONS: Have been reviewed. ALLERGIES: NO KNOWN DRUG ALLERGIES. REVIEW OF SYSTEMS: A 14-point review of systems conducted. Pertinent positives stated in HPI, other medrano negative. PHYSICAL EXAMINATION: VITAL SIGNS: Blood pressure is 109/62, respiration 19, pulse 101, temperature is 101.7. HEENT: Head is normocephalic. NECK: Supple. HEART: Regular rate. LUNGS: Show diminished breath sounds at the base. ABDOMEN: Soft, nontender to palpation without rebound or guarding. EXTREMITIES: Negative for clubbing, cyanosis. No edema. DERMATOLOGIC: Positive jaundice. NEUROLOGIC: No focal deficits. LABORATORY DATA: Currently show sodium 134, potassium 2.9, BUN 13, creatinine 0.89. IMAGING STUDIES: Liver ultrasound CT scan was reviewed. ASSESSMENT AND PLAN: 1. Hyponatremia. Etiology is possibly acute versus subacute, likely due to beer potomania, low solu te intake state. The patient's sodium levels have markedly improved with IV fluids. Plan at this po int is to check urine sodium, urine osmolality, uric acid level. The patient will be started on D5 w ater to ensure sodium levels do not correct more than 10 to 12 mEq in a 24-hour period. We will cont inue to monitor serial sodium levels closely. If sodium level should rapidly correct, we would consi tristan a course of DDAVP. 2. Hypokalemia, improved after potassium chloride repletion. We will continue to monitor. 3. EtOH hepatitis. Continue medical management. 4. Cholestasis, hyperbilirubinemia. Etiology is likely due to EtOH hepatitis. Other possibility samayoa ch as acute cholecystitis is being evaluated. We will continue medical management. Follow up with G Serene for recommendation. 6. ETOH abuse and withdrawal. Continue benzodiazepine. 7. Systemic inflammatory response syndrome likely due to EtOH hepatitis, questionable infectious luis ology. The patient's cultures have been sent. We will continue to monitor. Continue antibiotics. Thank you, Dr. Salazar, for this interesting consult. It will be a pleasure to follow patient with sharif duke throughout the hospital course. Dictated By: EMILY CARLSON DO NR/NTS Conf#: [id number] DID#: [id number] CC: RODDY CARMICHAEL MD; CRAIG SALAZAR MD;*End*
[2018-07-01] MEDS: DEXTROSE 5% 1,000 ML IV SCH ×2 (14:13→23:00)
--- NOTE | 2018-07-01 15:23 | PN ---
Date/Time of Note Date/Time of Note DATE: 07/01/18 TIME: 15:20 Assessment/Plan VTE Prophylaxis Risk score (from Ns)>0 risk: 0 SCD applied (from Ns): Yes Pharmacological prophylaxis: heparin Lines/Catheters IV Catheter Type ([facility] Peripheral IV Assessment/Plan Hospital Course 38 yo male with alcohol use d/o presents with alcoholic hepatitis and sepsis Alcoholic hepatitis: - Continue steroid course - Lactulose ok - Trend LFTs - MRCP pending - paracentesis if possible Sepsis with GNR bacteremia: - Continue IV zosyn. Source appears to be urinary Hyponatremia: - Resolving nicely Hyperglycemia: - likely from steroids, stress. A1C not very high - Low dose lantus Alcohol use d/o: - Patinet and family counseled extesnively on cessation Result Diagram: 07/01/18 0429 07/01/18 1144 Results 24hrs Laboratory Tests Test 06/30/18 17:56 06/30/18 20:56 06/30/18 21:09 07/01/18 01:01 White Blood Count 20.1 #H Red Blood Count 3.93 L Hemoglobin 12.7 L Hematocrit 35.5 L Mean Corpuscular 90.3 Volume Mean Corpuscular 32.3 Hemoglobin Mean Corpuscular 35.8 Hemoglobin Concen t Red Cell 12.8 Distribution Width Platelet Count 128 #L Mean Platelet 11.2 H Volume Immature 2.900 H Granulocytes % Segmented 69 Neutrophils % (Manual) Band Neutrophils 3 % (Manual) Lymphocytes % 9 L (Manual) Monocytes % 18 H (Manual) Metamyelocytes % 1 H (manual) Nucleated Red 0.0 Blood Cells % Immature 0.580 H Granulocytes # Neutrophils # 14.0 H (Manual) Band Neutrophils 0.6 # Lymphocytes 1.8 (Manual) Monocytes # 3.6 H (Manual) Metamyelocytes # 0.2 H Platelet Estimate DECREASED Giant Platelets 1 H Prothrombin Time 17.7 H Prothrombin Time 1.4 Ratio INR International 1.45 Normalized Ratio Activated 37.1 H Partial Thrombopl ast Time Urine Color LINDA Urine Clarity SLIGHTLY CLOUDY A Urine pH 6.0 Urine Specific 1.007 [place] Urine Ketones NEGATIVE Urine Nitrite NEGATIVE Urine Bilirubin NEGATIVE Urine 2+ H Urobilinogen Urine Leukocyte 3+ H Esterase Urine Microscopic 2 RBC Urine Microscopic 124 H WBC Urine Bacteria MANY A Urine Hemoglobin 3+ H Urine Glucose 3+ H Urine Total NEGATIVE Protein Sodium Level 124 L 128 L Potassium Level 3.5 3.0 L Chloride Level 87 L 89 L Carbon Dioxide 23 25 Level Anion Gap 14 H 14 H Blood Urea 10 10 Nitrogen Creatinine 0.89 0.83 Est Glomerular > 60 > 60 Filtrat Rate mL/min Glucose Level 383 H 236 #H Calcium Level 8.8 8.2 L Total Bilirubin 5.2 H 5.8 H Direct Bilirubin 3.20 H 3.90 H Indirect 2.0 H 1.9 H Bilirubin Aspartate Amino 92 H 99 H Transf (AST/SGOT) Alanine 63 66 Aminotransferase (ALT/SGPT) Alkaline 186 H 180 H Phosphatase Total Protein 8.1 7.8 Albumin 3.2 L 3.0 L Globulin 4.90 H 4.80 H Albumin/Globulin 0.65 0.62 Ratio Lipase 446 H Ammonia 40 H Ethyl Alcohol 83.0 H Level Urine Opiates Negative Screen Urine Negative Barbiturates Urine Negative Amphetamines Screen Urine Negative Benzodiazepines Screen Urine Cocaine Negative Screen Urine Positive Cannabinoids Test 07/01/18 01:22 07/01/18 03:31 07/01/18 04:29 07/01/18 04:30 Bedside Glucose 243 H Lactic Acid Level 1.9 White Blood Count 24.4 #H Red Blood Count 3.39 L Hemoglobin 10.8 L Hematocrit 30.8 L Mean Corpuscular 90.9 Volume Mean Corpuscular 31.9 Hemoglobin Mean Corpuscular 35.1 Hemoglobin Concen t Red Cell 13.1 Distribution Width Platelet Count 123 L Mean Platelet 11.3 H Volume Immature 3.200 H Granulocytes % Neutrophils % Segmented 78 H Neutrophils % (Manual) Band Neutrophils 3 % (Manual) Lymphocytes % Lymphocytes % 2 L (Manual) Reactive 1 H Lymphocytes % (Manual) Monocytes % Monocytes % 11 (Manual) Eosinophils % Basophils % Metamyelocytes % 1 H (manual) Myelocytes % 1 H (Manual) Promyelocytes % 3 H (Manual) Nucleated Red 0.0 Blood Cells % Immature 0.780 H Granulocytes # Neutrophils # Neutrophils # 19.2 H (Manual) Band Neutrophils 0.7 H # Lymphocytes 0.4 L (Manual) Lymphocytes # Reactive 0.2 H Lymphocytes # Monocytes # Monocytes # 2.6 H (Manual) Eosinophils # Basophils # Metamyelocytes # 0.2 H Myelocytes # 0.2 H Promyelocytes # 0.7 H Nucleated Red Blood Cells # Toxic Granulation 1+ Platelet Estimate DECREASED Giant Platelets 5 H Polychromasia 2+ Anisocytosis 1+ Macrocytosis 1+ Prothrombin Time 19.1 H Prothrombin Time 1.5 Ratio INR International 1.60 Normalized Ratio Sodium Level 129 L Potassium Level 3.3 L Chloride Level 91 L Carbon Dioxide 26 Level Anion Gap 12 Blood Urea 11 Nitrogen Creatinine 0.92 Est Glomerular > 60 Filtrat Rate mL/min Glucose Level 196 Hemoglobin A1c 6.3 H Calcium Level 8.0 L Total Bilirubin 6.5 H Direct Bilirubin 4.50 H Indirect 2.0 H Bilirubin Aspartate Amino 111 H Transf (AST/SGOT) Alanine 69 Aminotransferase (ALT/SGPT) Alkaline 168 H Phosphatase Total Protein 7.1 Albumin 2.8 L Globulin 4.30 H Albumin/Globulin 0.65 Ratio Salicylates Level < 1.0 L Acetaminophen < 10.0 L Level Hepatitis B NEGATIVE Surface Antibody Test 07/01/18 04:31 07/01/18 05:59 07/01/18 08:16 07/01/18 08:20 Magnesium Level 1.7 Triglycerides 112 Level Cholesterol Level 73 L LDL Cholesterol, 41 Calculated HDL Cholesterol 10 L Cholesterol/HDL 7.3 Ratio Thyroid 0.748 Stimulating Hormone (TSH) Hepatitis A NEGATIVE Antibody Total Hepatitis B NEGATIVE Surface Antigen Hepatitis B Core NEGATIVE Total Antibody Hepatitis C NEGATIVE Antibody Bedside Glucose 199 209 Sodium Level 132 L Potassium Level 3.8 Chloride Level 97 Carbon Dioxide 27 Level Anion Gap 8 Blood Urea 13 Nitrogen Creatinine 0.92 Est Glomerular > 60 Filtrat Rate mL/min Glucose Level 223 H Calcium Level 8.4 Total Bilirubin 6.7 H Direct Bilirubin 4.80 H Indirect 1.9 H Bilirubin Aspartate Amino 103 H Transf (AST/SGOT) Alanine 69 Aminotransferase (ALT/SGPT) Alkaline 160 H Phosphatase Total Protein 7.2 Albumin 2.7 L Globulin 4.50 H Albumin/Globulin 0.60 Ratio Test 07/01/18 11:44 07/01/18 12:58 Sodium Level 134 L Potassium Level 3.9 Chloride Level 96 L Carbon Dioxide 24 Level Anion Gap 14 H Blood Urea 13 Nitrogen Creatinine 0.89 Est Glomerular > 60 Filtrat Rate mL/min Glucose Level 279 H Calcium Level 8.3 L Total Bilirubin 7.1 H Direct Bilirubin 5.10 H Indirect 2.0 H Bilirubin Aspartate Amino 109 H Transf (AST/SGOT) Alanine 70 H Aminotransferase (ALT/SGPT) Alkaline 173 H Phosphatase Total Protein 7.7 Albumin 3.0 L Globulin 4.70 H Albumin/Globulin 0.63 Ratio Bedside Glucose 295 H Subjective 24 Hr Interval Summary Free Text/Dictation Discussed alcohol cessation with family and patinet at length Received benzo for withdrawals BC positive for GNR Exam/Review of Systems Exam Vitals Vital Signs Date Temp Pulse Resp B/P (MAP) Pulse Ox O2 O2 Flow FiO2 Time Delivery Rate 07/01/18 98.6 89 18 106/55 96 13:09 (72) 06/30/18 Room Air 21:48 Intake and Output 06/30/18 06/30/18 07/01/18 1515:00 23:00 07:00 IntakeIntake Total 200 ml BalanceBalance 200 ml Results Results 24hrs Laboratory Tests Test 06/30/18 17:56 06/30/18 20:56 06/30/18 21:09 07/01/18 01:01 White Blood Count 20.1 #H Red Blood Count 3.93 L Hemoglobin 12.7 L Hematocrit 35.5 L Mean Corpuscular 90.3 Volume Mean Corpuscular 32.3 Hemoglobin Mean Corpuscular 35.8 Hemoglobin Concen t Red Cell 12.8 Distribution Width Platelet Count 128 #L Mean Platelet 11.2 H Volume Immature 2.900 H Granulocytes % Segmented 69 Neutrophils % (Manual) Band Neutrophils 3 % (Manual) Lymphocytes % 9 L (Manual) Monocytes % 18 H (Manual) Metamyelocytes % 1 H (manual) Nucleated Red 0.0 Blood Cells % Immature 0.580 H Granulocytes # Neutrophils # 14.0 H (Manual) Band Neutrophils 0.6 # Lymphocytes 1.8 (Manual) Monocytes # 3.6 H (Manual) Metamyelocytes # 0.2 H Platelet Estimate DECREASED Giant Platelets 1 H Prothrombin Time 17.7 H Prothrombin Time 1.4 Ratio INR International 1.45 Normalized Ratio Activated 37.1 H Partial Thrombopl ast Time Urine Color LINDA Urine Clarity SLIGHTLY CLOUDY A Urine pH 6.0 Urine Specific 1.007 [place] Urine Ketones NEGATIVE Urine Nitrite NEGATIVE Urine Bilirubin NEGATIVE Urine 2+ H Urobilinogen Urine Leukocyte 3+ H Esterase Urine Microscopic 2 RBC Urine Microscopic 124 H WBC Urine Bacteria MANY A Urine Hemoglobin 3+ H Urine Glucose 3+ H Urine Total NEGATIVE Protein Sodium Level 124 L 128 L Potassium Level 3.5 3.0 L Chloride Level 87 L 89 L Carbon Dioxide 23 25 Level Anion Gap 14 H 14 H Blood Urea 10 10 Nitrogen Creatinine 0.89 0.83 Est Glomerular > 60 > 60 Filtrat Rate mL/min Glucose Level 383 H 236 #H Calcium Level 8.8 8.2 L Total Bilirubin 5.2 H 5.8 H Direct Bilirubin 3.20 H 3.90 H Indirect 2.0 H 1.9 H Bilirubin Aspartate Amino 92 H 99 H Transf (AST/SGOT) Alanine 63 66 Aminotransferase (ALT/SGPT) Alkaline 186 H 180 H Phosphatase Total Protein 8.1 7.8 Albumin 3.2 L 3.0 L Globulin 4.90 H 4.80 H Albumin/Globulin 0.65 0.62 Ratio Lipase 446 H Ammonia 40 H Ethyl Alcohol 83.0 H Level Urine Opiates Negative Screen Urine Negative Barbiturates Urine Negative Amphetamines Screen Urine Negative Benzodiazepines Screen Urine Cocaine Negative Screen Urine Positive Cannabinoids Test 07/01/18 01:22 07/01/18 03:31 07/01/18 04:29 07/01/18 04:30 Bedside Glucose 243 H Lactic Acid Level 1.9 White Blood Count 24.4 #H Red Blood Count 3.39 L Hemoglobin 10.8 L Hematocrit 30.8 L Mean Corpuscular 90.9 Volume Mean Corpuscular 31.9 Hemoglobin Mean Corpuscular 35.1 Hemoglobin Concen t Red Cell 13.1 Distribution Width Platelet Count 123 L Mean Platelet 11.3 H Volume Immature 3.200 H Granulocytes % Neutrophils % Segmented 78 H Neutrophils % (Manual) Band Neutrophils 3 % (Manual) Lymphocytes % Lymphocytes % 2 L (Manual) Reactive 1 H Lymphocytes % (Manual) Monocytes % Monocytes % 11 (Manual) Eosinophils % Basophils % Metamyelocytes % 1 H (manual) Myelocytes % 1 H (Manual) Promyelocytes % 3 H (Manual) Nucleated Red 0.0 Blood Cells % Immature 0.780 H Granulocytes # Neutrophils # Neutrophils # 19.2 H (Manual) Band Neutrophils 0.7 H # Lymphocytes 0.4 L (Manual) Lymphocytes # Reactive 0.2 H Lymphocytes # Monocytes # Monocytes # 2.6 H (Manual) Eosinophils # Basophils # Metamyelocytes # 0.2 H Myelocytes # 0.2 H Promyelocytes # 0.7 H Nucleated Red Blood Cells # Toxic Granulation 1+ Platelet Estimate DECREASED Giant Platelets 5 H Polychromasia 2+ Anisocytosis 1+ Macrocytosis 1+ Prothrombin Time 19.1 H Prothrombin Time 1.5 Ratio INR International 1.60 Normalized Ratio Sodium Level 129 L Potassium Level 3.3 L Chloride Level 91 L Carbon Dioxide 26 Level Anion Gap 12 Blood Urea 11 Nitrogen Creatinine 0.92 Est Glomerular > 60 Filtrat Rate mL/min Glucose Level 196 Hemoglobin A1c 6.3 H Calcium Level 8.0 L Total Bilirubin 6.5 H Direct Bilirubin 4.50 H Indirect 2.0 H Bilirubin Aspartate Amino 111 H Transf (AST/SGOT) Alanine 69 Aminotransferase (ALT/SGPT) Alkaline 168 H Phosphatase Total Protein 7.1 Albumin 2.8 L Globulin 4.30 H Albumin/Globulin 0.65 Ratio Salicylates Level < 1.0 L Acetaminophen < 10.0 L Level Hepatitis B NEGATIVE Surface Antibody Test 07/01/18 04:31 07/01/18 05:59 07/01/18 08:16 07/01/18 08:20 Magnesium Level 1.7 Triglycerides 112 Level Cholesterol Level 73 L LDL Cholesterol, 41 Calculated HDL Cholesterol 10 L Cholesterol/HDL 7.3 Ratio Thyroid 0.748 Stimulating Hormone (TSH) Hepatitis A NEGATIVE Antibody Total Hepatitis B NEGATIVE Surface Antigen Hepatitis B Core NEGATIVE Total Antibody Hepatitis C NEGATIVE Antibody Bedside Glucose 199 209 Sodium Level 132 L Potassium Level 3.8 Chloride Level 97 Carbon Dioxide 27 Level Anion Gap 8 Blood Urea 13 Nitrogen Creatinine 0.92 Est Glomerular > 60 Filtrat Rate mL/min Glucose Level 223 H Calcium Level 8.4 Total Bilirubin 6.7 H Direct Bilirubin 4.80 H Indirect 1.9 H Bilirubin Aspartate Amino 103 H Transf (AST/SGOT) Alanine 69 Aminotransferase (ALT/SGPT) Alkaline 160 H Phosphatase Total Protein 7.2 Albumin 2.7 L Globulin 4.50 H Albumin/Globulin 0.60 Ratio Test 07/01/18 11:44 07/01/18 12:58 Sodium Level 134 L Potassium Level 3.9 Chloride Level 96 L Carbon Dioxide 24 Level Anion Gap 14 H Blood Urea 13 Nitrogen Creatinine 0.89 Est Glomerular > 60 Filtrat Rate mL/min Glucose Level 279 H Calcium Level 8.3 L Total Bilirubin 7.1 H Direct Bilirubin 5.10 H Indirect 2.0 H Bilirubin Aspartate Amino 109 H Transf (AST/SGOT) Alanine 70 H Aminotransferase (ALT/SGPT) Alkaline 173 H Phosphatase Total Protein 7.7 Albumin 3.0 L Globulin 4.70 H Albumin/Globulin 0.63 Ratio Bedside Glucose 295 H Medications Medication Current Medications IV Flush (NS 3 ml) 3 ml PER PROTOCOL IV ; Start 06/30/18 at 21:00 Ondansetron HCl (Zofran Inj) 4 mg Q6H PRN IV NAUSEA/VOMITING Last administered on 06/30/18at 22:54; Admin Dose 4 MG; Start 06/30/18 at 21:00 Acetaminophen (Tylenol Tab) 650 mg Q6H PRN PO .PAIN 1-3 OR TEMP Last administe red on 07/01/18at 02:40; Admin Dose 650 MG; Start 06/30/18 at 21:00 Docusate Sodium (Colace) 100 mg Q12H PO Last administered on 07/01/18 12:12; Admin Dose 100 MG; Start 06/30/18 at 21:00 Bisacodyl (Dulcolax) 5 mg DAILY PO Last administered on 07/01/18 12:13; Admin Dose 5 MG; Start 07/01/18 at 09:00 Lorazepam (Ativan) 2 mg Q2H PRN IV CONTROL WITHDRAWAL SYMPTOMS Last administered on 07/01/18 12:57; Admin Dose 2 MG; Start 06/30/18 at 21:00 Piperacillin Sod/ Tazobactam Sod 100 ml @ 200 mls/hr Q6 IVPB Last administered on 07/01/18 12:12; Admin Dose 200 MLS/HR; Start 07/01/18 at 00:00 Lactulose (Enulose) 20 gm Q8 PO Last administered on 07/01/18 06:03; Admin Dose 20 GM; Start 07/01/18 at 00:00 Diagnostic Test (Pha) (Accu-Chek) 1 ea 02 XX ; Start 07/01/18 at 02:00 Miscellaneous Information 1 ea NOTE XX ; Start 06/30/18 at 23:45 Glucose (Glutose) 15 gm Q15M PRN PO DECREASED GLUCOSE; Start 06/30/18 at 23:45 Glucose (Glutose) 22.5 gm Q15M PRN PO DECREASED GLUCOSE; Start 06/30/18 at 23:45 Dextrose (D50w Syringe) 25 ml Q15M PRN IV DECREASED GLUCOSE; Start 06/30/18 at 23:45 Dextrose (D50w Syringe) 50 ml Q15M PRN IV DECREASED GLUCOSE; Start 06/30/18 at 23:45 Glucagon (Glucagen) 1 mg Q15M PRN IM DECREASED GLUCOSE; Start 06/30/18 at 23:45 Glucose (Glutose) 15 gm Q15M PRN BUCCAL DECREASED GLUCOSE; Start 06/30/18 at 23:45 Methylprednisolone Sodium Succinate (Solu-Medrol) 40 mg DAILY IV Last administered on 07/01/18 06:28; Admin Dose 40 MG; Start 07/01/18 at 04:31 Insulin Aspart (Novolog Insulin Pen) NOVOLOG *MILD* ALGORI... Q4 SC Last administered on 07/01/18 13:05; Admin Dose 4 UNIT; Start 07/01/18 at 05:00 Multivitamins Therapeutic (Theragran) 1 tab DAILY PO Last administered on 07/01/18 12:16; Admin Dose 1 TAB; Start 07/01/18 at 09:00 Folic Acid (Folic Acid) 1 mg DAILY PO Last administered on 07/01/18 12:16; Admin Dose 1 MG; Start 07/01/18 at 09:00 Thiamine HCl (Vitamin B1) 200 mg BID PO Last administered on 07/01/18 12:13; Admin Dose 200 MG; Start 07/01/18 at 21:00 Dextrose 1,000 ml @ 100 mls/hr Q10H IV Last administered on 07/01/18 14:13; Admin Dose 100 MLS/HR; Start 07/01/18 at 13:00 RODDY CARMICHAEL MD Jul 01, 2018 15:23
[2018-07-01 20:00] VITALS: BP 125/81; PULSE 104; RESP 19
[2018-07-01] MEDS ORDERED: CEFTRIAXONE 1 GM/50 ML (PMX) 50 ML IVPB SCH (21:00)
[2018-07-01] MEDS: CHLORDIAZEPOXIDE 25 MG CAP PO SCH (21:14)
[2018-07-01] MEDS ORDERED: HALOPERIDOL 5 MG INJ IM ONE ×2 (22:00)
[2018-07-01] MEDS ORDERED: LORAZEPAM 2 MG INJ IV ONE (22:00)
[2018-07-02] MEDS: PIPER-TAZO 3.375 GM IV (PMX) 100 ML IVPB SCH ×4 (00:24→17:45)
[2018-07-02] MEDS ORDERED: ACCU-CHEK XX SCH (02:00)
[2018-07-02] MEDS: ACCU-CHEK XX SCH (02:00)
[2018-07-02 02:08] VITALS: BP 132/78; PULSE 88; RESP 18
[2018-07-02] MEDS: DEXTROSE 5% 1,000 ML IV SCH ×2 (02:41→08:10)
[2018-07-02] MEDS: CHLORDIAZEPOXIDE 25 MG CAP PO SCH ×3 (05:34→21:32)
[2018-07-02] MEDS: LACTULOSE 30ML CUP PO SCH ×3 (05:34→21:32)
[2018-07-02 07:48] VITALS: BP 108/68; PULSE 85; RESP 18
[2018-07-02] MEDS: INSULIN ASPART [NOVOLOG] 3 ML PEN SC SCH ×4 (08:08→21:00)
[2018-07-02] MEDS: FOLIC ACID 1 MG TAB PO SCH (08:09)
[2018-07-02] MEDS: BISACODYL (EC) 5 MG TAB PO SCH (08:09)
[2018-07-02] MEDS: DOCUSATE SODIUM 100 MG CAP PO SCH (08:09)
[2018-07-02] MEDS: METHYLPREDNISOLONE 40 MG INJ IV SCH (08:09)
[2018-07-02] MEDS: MULTIVITAMINS THERAPEUTIC TAB PO SCH (08:09)
[2018-07-02] MEDS: THIAMINE 100 MG TAB PO SCH ×2 (08:10→21:33)
--- NOTE | 2018-07-02 10:12 | PN ---
DATE: 07/02/2018 SUBJECTIVE: The patient remains confused, no acute events overnight. Patient remains agitated. OBJECTIVE: VITAL SIGNS: Blood pressure 108/68, respiration 18, pulse 85, temperature 98.0. HEENT: Head is normocephalic. NECK: Supple. HEART: Regular rate. LUNGS: Show diminished breath sounds at the base. ABDOMEN: Soft, nontender to palpation without rebound or guarding. EXTREMITIES: Negative for clubbing, cyanosis, no edema. DERMATOLOGIC: The patient is jaundiced. NEUROLOGIC: No change in exam. MEDICATIONS: Reviewed. LABORATORY DATA: Has been reviewed. ASSESSMENT AND PLAN: 1. Hyponatremia, possibly acute versus subacute. Etiology secondary to beer potomania and low solut e intake. The patient's sodium levels have been improving with IV fluids. The patient was placed on D5 water to ensure correction no more than 12 mEq in 24 hour period. At this point, will discontinu e D5 water. Continue to monitor serial sodium levels closely. 2. Hypokalemia. Continue to monitor and replete. 3. Benign prostatic hypertrophy, hepatitis. Continue medical management. 4. Cholestasis hyperbilirubinemia, likely due to ETOH hepatitis. Continue medical management. Foll ow up with GI. 5. ETOH abuse and withdrawal. Continue benzodiazepines. 6. Systemic inflammatory response syndrome, questionable infectious etiology versus ETOH hepatitis. The patient's cultures have been sent, currently on empiric antibiotics, continue to monitor. Dictated By: EMILY VALDEZ/NTS Conf#: [id number] DID#: [id number] CC: APRIL SALAZAR MD;*End*
[2018-07-02] MEDS: LORAZEPAM 2 MG INJ IV PRN ×2 (10:19→21:32)
--- NOTE | 2018-07-02 12:46 | PN ---
Date/Time of Note Date/Time of Note DATE: 07/02/18 TIME: 12:45 Assessment/Plan VTE Prophylaxis Risk score (from Nsg)>0 risk: 0 SCD applied (from Nsg): Yes Pharmacological prophylaxis: heparin Lines/Catheters IV Catheter Type (from Nrsg): Saline Lock Assessment/Plan Hospital Course EXAM Calm Alert, oriented No tremors or fasciculations Jaundiced RRR CTAB Soft nt nd No edema 38 yo male with alcohol use d/o presents with alcoholic hepatitis and sepsis Alcohol withdrawal syndrome: - Continue librium taper with ativan PRN Alcoholic hepatitis: - Continue steroid course, converted to PO prednisolone - Lactulose - Trend LFTs - MRCP pending - paracentesis if possible Sepsis with GNR bacteremia: - Continue IV zosyn until speciation. Source appears to be urinary Hyponatremia: - Resolving nicely Hyperglycemia: - likely from steroids, stress. A1C not very high - Low dose lantus Alcohol use d/o: - Patinet and family counseled extensively on cessation Result Diagram: 07/02/1891907/02/18919 Results 24hrs Laboratory Tests Test 07/01/18 12:58 07/01/18 16:00 07/01/18 17:15 07/01/18 20:09 Bedside Glucose 295 H 289 H Sodium Level 135 134 L Potassium Level 4.0 3.4 L Chloride Level 98 99 Carbon Dioxide Level 26 25 Anion Gap 11 10 Blood Urea Nitrogen 15 16 Creatinine 0.92 0.92 Est Glomerular > 60 > 60 Filtrat Rate mL/min Glucose Level 330 H 289 H Calcium Level 8.8 8.7 Total Bilirubin 6.7 H 5.7 H Direct Bilirubin 4.80 H 4.00 H Indirect Bilirubin 1.9 H 1.7 H Aspartate Amino 97 H 87 H Transf (AST/SGOT) Alanine 65 59 Aminotransferase (AL T/SGPT) Alkaline Phosphatase 189 H 174 H Total Protein 7.9 7.7 Albumin 3.1 L 3.0 L Globulin 4.80 H 4.70 H Albumin/Globulin 0.64 0.63 Ratio Test 07/02/18 01:15 07/02/18 07:52 07/02/18 09:20 Urine Color LINDA Urine Clarity CLEAR Urine pH 6.0 Urine Specific 1.011 [place] Urine Ketones NEGATIVE Urine Nitrite NEGATIVE Urine Bilirubin NEGATIVE Urine Urobilinogen 2+ H Urine Leukocyte 1+ H Esterase Urine Microscopic 3 RBC Urine Microscopic 40 H WBC Urine Hemoglobin 2+ H Urine Osmolality 332 Urine Random 41.57 Creatinine Urine Random Sodium 32 Urine Glucose 3+ H Urine Total Protein 24.0 H Bedside Glucose 292 H White Blood Count 21.9 H Red Blood Count 3.51 L Hemoglobin 11.4 L Hematocrit 32.5 L Mean Corpuscular 92.6 Volume Mean Corpuscular 32.5 Hemoglobin Mean Corpuscular 35.1 Hemoglobin Concent Red Cell 13.6 Distribution Width Platelet Count 161 # Mean Platelet Volume 10.9 H Immature 2.600 H Granulocytes % Neutrophils % 80.0 H Lymphocytes % 5.9 L Monocytes % 10.8 Eosinophils % 0.3 Basophils % 0.4 Nucleated Red Blood 0.1 H Cells % Immature 0.560 H Granulocytes # Neutrophils # 17.5 H Lymphocytes # 1.3 Monocytes # 2.4 H Eosinophils # 0.1 Basophils # 0.1 Nucleated Red Blood 0.0 Cells # Prothrombin Time 18.2 H Prothrombin Time 1.4 Ratio INR International 1.50 Normalized Ratio Sodium Level 136 Potassium Level 3.2 L Chloride Level 101 Carbon Dioxide Level 26 Anion Gap 9 Blood Urea Nitrogen 18 Creatinine 0.92 Est Glomerular > 60 Filtrat Rate mL/min Glucose Level 194 Lactic Acid Level 1.8 Calcium Level 8.8 Phosphorus Level 3.4 Magnesium Level 2.3 Total Bilirubin 3.8 H Direct Bilirubin 2.10 #H Indirect Bilirubin 1.7 H Aspartate Amino 68 H Transf (AST/SGOT) Alanine 66 Aminotransferase (AL T/SGPT) Alkaline Phosphatase 154 H Total Protein 6.8 Albumin 2.6 L Subjective 24 Hr Interval Summary Free Text/Dictation Withdrawal symptoms improving He is calm Fevers resolved No complaints Exam/Review of Systems Exam Vitals Vital Signs Date Temp Pulse Resp B/P (MAP) Pulse Ox O2 O2 Flow FiO2 Time Delivery Rate 07/02/18 98.0 85 18 108/68 98 07:48 (81) 06/30/18 Room Air 21:48 Intake and Output 07/01/18 07/01/18 07/02/18 1515:00 23:00 07:00 IntakeIntake Total 470 ml 660 ml 1300 ml OutputOutput Total 275 ml 600 ml BalanceBalance 195 ml 660 ml 700 ml Results Results 24hrs Laboratory Tests Test 07/01/18 12:58 07/01/18 16:00 07/01/18 17:15 07/01/18 20:09 Bedside Glucose 295 H 289 H Sodium Level 135 134 L Potassium Level 4.0 3.4 L Chloride Level 98 99 Carbon Dioxide Level 26 25 Anion Gap 11 10 Blood Urea Nitrogen 15 16 Creatinine 0.92 0.92 Est Glomerular > 60 > 60 Filtrat Rate mL/min Glucose Level 330 H 289 H Calcium Level 8.8 8.7 Total Bilirubin 6.7 H 5.7 H Direct Bilirubin 4.80 H 4.00 H Indirect Bilirubin 1.9 H 1.7 H Aspartate Amino 97 H 87 H Transf (AST/SGOT) Alanine 65 59 Aminotransferase (AL T/SGPT) Alkaline Phosphatase 189 H 174 H Total Protein 7.9 7.7 Albumin 3.1 L 3.0 L Globulin 4.80 H 4.70 H Albumin/Globulin 0.64 0.63 Ratio Test 07/02/18 01:15 07/02/18 07:52 07/02/18 09:20 Urine Color LINDA Urine Clarity CLEAR Urine pH 6.0 Urine Specific 1.011 [place] Urine Ketones NEGATIVE Urine Nitrite NEGATIVE Urine Bilirubin NEGATIVE Urine Urobilinogen 2+ H Urine Leukocyte 1+ H Esterase Urine Microscopic 3 RBC Urine Microscopic 40 H WBC Urine Hemoglobin 2+ H Urine Osmolality 332 Urine Random 41.57 Creatinine Urine Random Sodium 32 Urine Glucose 3+ H Urine Total Protein 24.0 H Bedside Glucose 292 H White Blood Count 21.9 H Red Blood Count 3.51 L Hemoglobin 11.4 L Hematocrit 32.5 L Mean Corpuscular 92.6 Volume Mean Corpuscular 32.5 Hemoglobin Mean Corpuscular 35.1 Hemoglobin Concent Red Cell 13.6 Distribution Width Platelet Count 161 # Mean Platelet Volume 10.9 H Immature 2.600 H Granulocytes % Neutrophils % 80.0 H Lymphocytes % 5.9 L Monocytes % 10.8 Eosinophils % 0.3 Basophils % 0.4 Nucleated Red Blood 0.1 H Cells % Immature 0.560 H Granulocytes # Neutrophils # 17.5 H Lymphocytes # 1.3 Monocytes # 2.4 H Eosinophils # 0.1 Basophils # 0.1 Nucleated Red Blood 0.0 Cells # Prothrombin Time 18.2 H Prothrombin Time 1.4 Ratio INR International 1.50 Normalized Ratio Sodium Level 136 Potassium Level 3.2 L Chloride Level 101 Carbon Dioxide Level 26 Anion Gap 9 Blood Urea Nitrogen 18 Creatinine 0.92 Est Glomerular > 60 Filtrat Rate mL/min Glucose Level 194 Lactic Acid Level 1.8 Calcium Level 8.8 Phosphorus Level 3.4 Magnesium Level 2.3 Total Bilirubin 3.8 H Direct Bilirubin 2.10 #H Indirect Bilirubin 1.7 H Aspartate Amino 68 H Transf (AST/SGOT) Alanine 66 Aminotransferase (AL T/SGPT) Alkaline Phosphatase 154 H Total Protein 6.8 Albumin 2.6 L Medications Medication Current Medications IV Flush (NS 3 ml) 3 ml PER PROTOCOL IV ; Start 06/30/18 at 21:00 Ondansetron HCl (Zofran Inj) 4 mg Q6H PRN IV NAUSEA/VOMITING Last administered on 06/30/18at 22:54; Admin Dose 4 MG; Start 06/30/18 at 21:00 Acetaminophen (Tylenol Tab) 650 mg Q6H PRN PO .PAIN 1-3 OR TEMP Last administered on 07/01/18at 02:40; Admin Dose 650 MG; Start 06/30/18 at 21:00 Lorazepam (Ativan) 2 mg Q2H PRN IV CONTROL WITHDRAWAL SYMPTOMS Last administered on 07/02/18at 10:19; Admin Dose 2 MG; Start 06/30/18 at 21:00 Piperacillin Sod/ Tazobactam Sod 100 ml @ 200 mls/hr Q6 IVPB Last administered on 07/02/18at 05:34; Admin Dose 200 MLS/HR; Start 07/01/18 at 00:00 Lactulose (Enulose) 20 gm Q8 PO Last administered on 07/02/18at 05:34; Admin Dose 20 GM; Start 07/01/18 at 00:00 Miscellaneous Information 1 ea NOTE XX ; Start 06/30/18 at 23:45 Glucose (Glutose) 15 gm Q15M PRN PO DECREASED GLUCOSE; Start 06/30/18 at 23:45 Glucose (Glutose) 22.5 gm Q15M PRN PO DECREASED GLUCOSE; Start 06/30/18 at 23:45 Dextrose (D50w Syringe) 25 ml Q15M PRN IV DECREASED GLUCOSE; Start 06/30/18 at 23:45 Dextrose (D50w Syringe) 50 ml Q15M PRN IV DECREASED GLUCOSE; Start 06/30/18 at 23:45 Glucagon (Glucagen) 1 mg Q15M PRN IM DECREASED GLUCOSE; Start 06/30/18 at 23:45 Glucose (Glutose) 15 gm Q15M PRN BUCCAL DECREASED GLUCOSE; Start 06/30/18 at 23:45 Multivitamins Therapeutic (Theragran) 1 tab DAILY PO Last administered on 07/02/18 08:09; Admin Dose 1 TAB; Start 07/01/18 at 09:00 Folic Acid (Folic Acid) 1 mg DAILY PO Last administered on 07/02/18 08:09; Admin Dose 1 MG; Start 07/01/18 at 09:00 Thiamine HCl (Vitamin B1) 200 mg BID PO Last administered on 07/02/18 08:10; Admin Dose 200 MG; Start 07/01/18 at 21:00 Chlordiazepoxide (Librium) 50 mg Q8 PO Last administered on 07/02/18 05:34; Admin Dose 50 MG; Start 07/01/18 at 22:00 Insulin Aspart (Novolog Insulin Pen) NOVOLOG *MILD* ALGORITHM WITH MEALS BEDTIME SC Last administered on 07/02/18 08:08; Admin Dose 4 UNIT; Start 07/01/18 at 21:00 Insulin Glargine (Lantus) 9 units DAILY@0800 SC ; Start 07/02/18 at 10:30 Prednisolone (Prelone) 40 mg DAILY PO ; Start 07/03/18 at 09:00 RODDY CARMICHAEL MD Jul 02, 2018 12:46
[2018-07-02] MEDS: INSULIN GLARGINE [LANTus] (100 UNITS/ML) SYG SC SCH (12:50)
--- NOTE | 2018-07-02 13:53 | PN ---
Date/Time of Note Date/Time of Note DATE: 07/02/18 TIME: 13:47 Assessment/Plan VTE Prophylaxis Risk score (from Ns)>0 risk: 0 SCD applied (from Ns): Yes Pharmacological prophylaxis: NA/contraindicated Pharm contraindication: liver dx Lines/Catheters [facility] Saline Lock Assessment/Plan Assessment/Plan Assessment: Alcoholic hepatitis Alcohol withdrawal Thickening of gallbladder on CT Jaundice Pancreatitis -elevated lipase -abdominal pain resolved Elevated AST Hyperbilirubinemia Fatty liver Portal gastropathy on CT Gram-negative bacteremia UTI Leukocytosis Alcohol abuse Plan: Advance diet to diabetic Check lipase, amylase and hemoglobin A1c with a.m. labs Monitor LFTs Supportive treatment Continue treatment of withdrawal Discussed treatment of alcoholic hepatitis/fatty liver and quitting alcohol. Recommend EGD for screening for esophageal varices once the patient is stable versus outpatient Patient seen in collaboration with Dr. Perkins Subjective: Patient is improving. He denies abdominal pain, nausea or vomiting. Tolerating clear liquid diet well. Discussed results of MRCP as being negative for choledocholithiasis. Liver function test is improving. Bilirubin is trending down. Patient is on antibiotics for treatment of bacteremia. We will the advance diet. Check lipase/amylase with a.m. labs. Exam PHYSICAL EXAMINATION: GENERAL: Well developed, jaundice , tremors , well nourished, alert & oriented x 3, in no acute distress SKIN: No lesions, no stigmata chronic liver disease, no evidence of bleeding diathesis LYMPHATIC: No palpable lymphadenopathy. HEAD: Normocephalic, atraumatic, no tenderness. EYES: Pupils equal reactive to light and accommodation, full extraocular movements, sclera-icteric, no discharge. EARS/NOSE AND THROAT: Ears normal, nose normal, oropharynx normal, oral memb ranes well hydrated without lesions. NECK: Supple, no masses, thyroid normal, JVP within normal limits, carotids normal without bruits. CHEST: Inspection within normal limits. CARDIOVASCULAR: Heart: Regular rate and rhythm, no murmurs, gallops or rubs. Peripheral pulses present within normal limits, no cyanosis, clubbing or edemas. No pulsatile abdominal mass RESPIRATORY: Lungs clear to auscultation and percussion, no wheezing, no rubs GASTROINTESTINAL AND LIVER: Abdomen: Soft, no tenderness, non-distended, no hernias, no masses, no organomegaly, no ascites, no guarding, no rebound tenderness, normoactive bowel sounds. Rectal: Deferred. GENITOURINARY: [Male genitalia within normal limits. EXTREMITIES: No cyanosis, clubbing or edema. Result Diagram: 07/02/1891907/02/18919 Results 24hrs Laboratory Tests Test 07/01/18 16:00 07/01/18 17:15 07/01/18 20:09 07/02/18 01:15 Sodium Level 135 134 L Potassium Level 4.0 3.4 L Chloride Level 98 99 Carbon Dioxide Level 26 25 Anion Gap 11 10 Blood Urea Nitrogen 15 16 Creatinine 0.92 0.92 Est Glomerular > 60 > 60 Filtrat Rate mL/min Glucose Level 330 H 289 H Calcium Level 8.8 8.7 Total Bilirubin 6.7 H 5.7 H Direct Bilirubin 4.80 H 4.00 H Indirect Bilirubin 1.9 H 1.7 H Aspartate Amino 97 H 87 H Transf (AST/SGOT) Alanine 65 59 Aminotransferase (AL T/SGPT) Alkaline Phosphatase 189 H 174 H Total Protein 7.9 7.7 Albumin 3.1 L 3.0 L Globulin 4.80 H 4.70 H Albumin/Globulin 0.64 0.63 Ratio Bedside Glucose 289 H Urine Color LINDA Urine Clarity CLEAR Urine pH 6.0 Urine Specific 1.011 [place] Urine Ketones NEGATIVE Urine Nitrite NEGATIVE Urine Bilirubin NEGATIVE Urine Urobilinogen 2+ H Urine Leukocyte 1+ H Esterase Urine Microscopic 3 RBC Urine Microscopic 40 H WBC Urine Hemoglobin 2+ H Urine Osmolality 332 Urine Random 41.57 Creatinine Urine Random Sodium 32 Urine Glucose 3+ H Urine Total Protein 24.0 H Test 07/02/18 07:52 07/02/18 09:20 07/02/18 12:44 Bedside Glucose 292 H 121 White Blood Count 21.9 H Red Blood Count 3.51 L Hemoglobin 11.4 L Hematocrit 32.5 L Mean Corpuscular 92.6 Volume Mean Corpuscular 32.5 Hemoglobin Mean Corpuscular 35.1 Hemoglobin Concent Red Cell 13.6 Distribution Width Platelet Count 161 # Mean Platelet Volume 10.9 H Immature 2.600 H Granulocytes % Neutrophils % 80.0 H Lymphocytes % 5.9 L Monocytes % 10.8 Eosinophils % 0.3 Basophils % 0.4 Nucleated Red Blood 0.1 H Cells % Immature 0.560 H Granulocytes # Neutrophils # 17.5 H Lymphocytes # 1.3 Monocytes # 2.4 H Eosinophils # 0.1 Basophils # 0.1 Nucleated Red Blood 0.0 Cells # Prothrombin Time 18.2 H Prothrombin Time 1.4 Ratio INR International 1.50 Normalized Ratio Sodium Level 136 Potassium Level 3.2 L Chloride Level 101 Carbon Dioxide Level 26 Anion Gap 9 Blood Urea Nitrogen 18 Creatinine 0.92 Est Glomerular > 60 Filtrat Rate mL/min Glucose Level 194 Lactic Acid Level 1.8 Calcium Level 8.8 Phosphorus Level 3.4 Magnesium Level 2.3 Total Bilirubin 3.8 H Direct Bilirubin 2.10 #H Indirect Bilirubin 1.7 H Aspartate Amino 68 H Transf (AST/SGOT) Alanine 66 Aminotransferase (AL T/SGPT) Alkaline Phosphatase 154 H Total Protein 6.8 Albumin 2.6 L CC: LISS PERKINS MD ; Exam/Review of Systems Exam Vitals Vital Signs Date Temp Pulse Resp B/P (MAP) Pulse Ox O2 O2 Flow FiO2 Time Delivery Rate 07/02/18 98.0 85 18 108/68 98 07:48 (81) 06/30/18 Room Air 21:48 Intake and Output 07/01/18 07/01/18 07/02/18 1515:00 23:00 07:00 IntakeIntake Total 470 ml 660 ml 1300 ml OutputOutput Total 275 ml 600 ml BalanceBalance 195 ml 660 ml 700 ml Results Results 24hrs Laboratory Tests Test 07/01/18 16:00 07/01/18 17:15 07/01/18 20:09 07/02/18 01:15 Sodium Level 135 134 L Potassium Level 4.0 3.4 L Chloride Level 98 99 Carbon Dioxide Level 26 25 Anion Gap 11 10 Blood Urea Nitrogen 15 16 Creatinine 0.92 0.92 Est Glomerular > 60 > 60 Filtrat Rate mL/min Glucose Level 330 H 289 H Calcium Level 8.8 8.7 Total Bilirubin 6.7 H 5.7 H Direct Bilirubin 4.80 H 4.00 H Indirect Bilirubin 1.9 H 1.7 H Aspartate Amino 97 H 87 H Transf (AST/SGOT) Alanine 65 59 Aminotransferase (AL T/SGPT) Alkaline Phosphatase 189 H 174 H Total Protein 7.9 7.7 Albumin 3.1 L 3.0 L Globulin 4.80 H 4.70 H Albumin/Globulin 0.64 0.63 Ratio Bedside Glucose 289 H Urine Color LINDA Urine Clarity CLEAR Urine pH 6.0 Urine Specific 1.011 [place] Urine Ketones NEGATIVE Urine Nitrite NEGATIVE Urine Bilirubin NEGATIVE Urine Urobilinogen 2+ H Urine Leukocyte 1+ H Esterase Urine Microscopic 3 RBC Urine Microscopic 40 H WBC Urine Hemoglobin 2+ H Urine Osmolality 332 Urine Random 41.57 Creatinine Urine Random Sodium 32 Urine Glucose 3+ H Urine Total Protein 24.0 H Test 07/02/18 07:52 07/02/18 09:20 07/02/18 12:44 Bedside Glucose 292 H 121 White Blood Count 21.9 H Red Blood Count 3.51 L Hemoglobin 11.4 L Hematocrit 32.5 L Mean Corpuscular 92.6 Volume Mean Corpuscular 32.5 Hemoglobin Mean Corpuscular 35.1 Hemoglobin Concent Red Cell 13.6 Distribution Width Platelet Count 161 # Mean Platelet Volume 10.9 H Immature 2.600 H Granulocytes % Neutrophils % 80.0 H Lymphocytes % 5.9 L Monocytes % 10.8 Eosinophils % 0.3 Basophils % 0.4 Nucleated Red Blood 0.1 H Cells % Immature 0.560 H Granulocytes # Neutrophils # 17.5 H Lymphocytes # 1.3 Monocytes # 2.4 H Eosinophils # 0.1 Basophils # 0.1 Nucleated Red Blood 0.0 Cells # Prothrombin Time 18.2 H Prothrombin Time 1.4 Ratio INR International 1.50 Normalized Ratio Sodium Level 136 Potassium Level 3.2 L Chloride Level 101 Carbon Dioxide Level 26 Anion Gap 9 Blood Urea Nitrogen 18 Creatinine 0.92 Est Glomerular > 60 Filtrat Rate mL/min Glucose Level 194 Lactic Acid Level 1.8 Calcium Level 8.8 Phosphorus Level 3.4 Magnesium Level 2.3 Total Bilirubin 3.8 H Direct Bilirubin 2.10 #H Indirect Bilirubin 1.7 H Aspartate Amino 68 H Transf (AST/SGOT) Alanine 66 Aminotransferase (AL T/SGPT) Alkaline Phosphatase 154 H Total Protein 6.8 Albumin 2.6 L Medications Medication Current Medications IV Flush (NS 3 ml) 3 ml PER PROTOCOL IV ; Start 06/30/18 at 21:00 Ondansetron HCl (Zofran Inj) 4 mg Q6H PRN IV NAUSEA/VOMITING Last administered on 06/30/18at 22:54; Admin Dose 4 MG; Start 06/30/18 at 21:00 Acetaminophen (Tylenol Tab) 650 mg Q6H PRN PO .PAIN 1-3 OR TEMP Last administered on 07/01/18at 02:40; Admin Dose 650 MG; Start 06/30/18 at 21:00 Lorazepam (Ativan) 2 mg Q2H PRN IV CONTROL WITHDRAWAL SYMPTOMS Last administered on 07/02/18 10:19; Admin Dose 2 MG; Start 06/30/18 at 21:00 Piperacillin Sod/ Tazobactam Sod 100 ml @ 200 mls/hr Q6 IVPB Last administered on 07/02/18 12:49; Admin Dose 200 MLS/HR; Start 07/01/18 at 00:00 Lactulose (Enulose) 20 gm Q8 PO Last administered on 07/02/18 05:34; Admin Dose 20 GM; Start 07/01/18 at 00:00 Miscellaneous Information 1 ea NOTE XX ; Start 06/30/18 at 23:45 Glucose (Glutose) 15 gm Q15M PRN PO DECREASED GLUCOSE; Start 06/30/18 at 23:45 Glucose (Glutose) 22.5 gm Q15M PRN PO DECREASED GLUCOSE; Start 06/30/18 at 23:45 Dextrose (D50w Syringe) 25 ml Q15M PRN IV DECREASED GLUCOSE; Start 06/30/18 at 23:45 Dextrose (D50w Syringe) 50 ml Q15M PRN IV DECREASED GLUCOSE; Start 06/30/18 at 23:45 Glucagon (Glucagen) 1 mg Q15M PRN IM DECREASED GLUCOSE; Start 06/30/18 at 23:45 Glucose (Glutose) 15 gm Q15M PRN BUCCAL DECREASED GLUCOSE; Start 06/30/18 at 23:45 Multivitamins Therapeutic (Theragran) 1 tab DAILY PO Last administered on 07/02/18at 08:09; Admin Dose 1 TAB; Start 07/01/18 at 09:00 Folic Acid (Folic Acid) 1 mg DAILY PO Last administered on 07/02/18 08:09; Admin Dose 1 MG; Start 07/01/18 at 09:00 Thiamine HCl (Vitamin B1) 200 mg BID PO Last administered on 07/02/18 08:10; Admin Dose 200 MG; Start 07/01/18 at 21:00 Chlordiazepoxide (Librium) 50 mg Q8 PO Last administered on 07/02/18 05:34; Admin Dose 50 MG; Start 07/01/18 at 22:00 Insulin Aspart (Novolog Insulin Pen) NOVOLOG *MILD* ALGORITHM WITH MEALS BEDTIME SC Last administered on 07/02/18at 08:08; Admin Dose 4 UNIT; Start 07/01/18 at 21:00 Insulin Glargine (Lantus) 9 units DAILY@0800 SC Last administered on 07/02/18at 12:50; Admin Dose 9 UNITS; Start 07/02/18 at 10:30 Prednisolone (Prelone) 40 mg DAILY PO ; Start 07/03/18 at 09:00 LATRICE BAXTER NP Jul 02, 2018 13:53
[2018-07-02 14:46] VITALS: BP 108/68; PULSE 70; RESP 18
[2018-07-02] MEDS ORDERED: POTASSIUM CHLORIDE (SR) 20 MEQ TAB PO STA (14:52)
[2018-07-02 20:00] VITALS: BP 109/72; PULSE 103; RESP 16
[2018-07-02] MEDS ORDERED: HALOPERIDOL 5 MG INJ IM ONE (23:00)
[2018-07-02] MEDS ORDERED: LORAZEPAM 2 MG INJ IV ONE (23:00)
[2018-07-03] MEDS: LORAZEPAM 2 MG INJ IV PRN ×4 (00:29→21:38)
[2018-07-03] MEDS: PIPER-TAZO 3.375 GM IV (PMX) 100 ML IVPB SCH ×5 (00:29→23:10)
[2018-07-03 02:00] VITALS: BP 101/64; PULSE 85; RESP 18
[2018-07-03] MEDS: LACTULOSE 30ML CUP PO SCH ×3 (05:58→21:38)
[2018-07-03] MEDS: CHLORDIAZEPOXIDE 25 MG CAP PO SCH ×2 (05:58→15:19)
[2018-07-03 08:04] VITALS: BP 98/65; PULSE 106; RESP 16
[2018-07-03] MEDS: THIAMINE 100 MG TAB PO SCH ×2 (08:16→20:21)
[2018-07-03] MEDS: FOLIC ACID 1 MG TAB PO SCH (08:16)
[2018-07-03] MEDS: MULTIVITAMINS THERAPEUTIC TAB PO SCH (08:16)
[2018-07-03] MEDS: INSULIN ASPART [NOVOLOG] 3 ML PEN SC SCH ×5 (08:18→20:24)
[2018-07-03] MEDS: INSULIN GLARGINE [LANTus] (100 UNITS/ML) SYG SC SCH (08:18)
[2018-07-03] MEDS ORDERED: predniSOLONE (3 MG/ML) CUP PO SCH (09:00)
[2018-07-03] MEDS ORDERED: SOD CHLORIDE 0.9% 1,000 ML IV SCH (12:30)
--- NOTE | 2018-07-03 12:33 | CONS ---
Assessment/Plan Assessment/Plan Assessment/Plan (Daily) 1. Hyponatremia, possibly acute versus subacute. Etiology secondary to beer potomania and low solute intake. The patient's sodium levels have been improved with ivf. Continue to monitor serial sodium levels closely. 2. TORIBIO: due to hypoperfusion with hemodynamic changes. will give gentle hydrati on. 3. Benign prostatic hypertrophy, hepatitis. Continue medical management. 4. Cholestasis hyperbilirubinemia. US and MRI reviewed. Continue medical management. Follow up with GI. 5. ETOH abuse and withdrawal. Continue benzodiazepines. 6. Sepsis due to uti/bacteremia: cont abx and /u cx Consultation Date/Type/Reason Admit Date/Time Jun 30, 2018 at 20:51 Initial Consult Date 07/01/18 Date/Time of Note DATE: 07/03/18 TIME: 12:31 24 HR Interval Summary Free Text/Dictation denies shortness of breath, n/v or urinary issues dw rn gen nad cv rrr pulm ctab abd soft, nd, nt +bs ext: no edema Exam/Review of Systems Exam Vitals Vital Signs Date Temp Pulse Resp B/P (MAP) Pulse Ox O2 O2 Flow FiO2 Time Delivery Rate 07/03/18 99.3 106 16 98/65 (76) 98 08:04 06/30/18 Room Air 21:48 Intake and Output 07/02/18 07/02/18 07/03/18 1515:00 23:00 07:00 IntakeIntake Total 500 ml 580 ml 100 ml OutputOutput Total 600 ml BalanceBalance 500 ml 580 ml -500 ml Results Result Diagram: 07/03/18 0439 07/03/18 0439 Results 24hrs Laboratory Tests Test 07/02/18 12:44 07/02/18 17:43 07/02/18 21:31 07/03/18 04:39 Bedside Glucose 121 126 147 White Blood Count 15.8 #H Red Blood Count 3.55 L Hemoglobin 11.3 L Hematocrit 33.3 L Mean Corpuscular 93.8 Volume Mean Corpuscular 31.8 Hemoglobin Mean Corpuscular 33.9 Hemoglobin Concent Red Cell 14.1 Distribution Width Platelet Count 145 Mean Platelet Volume 10.5 H Immature 4.100 H Granulocytes % Neutrophils % 71.0 Lymphocytes % 11.1 L Monocytes % 11.8 H Eosinophils % 1.2 Basophils % 0.8 Nucleated Red Blood 0.0 Cells % Immature 0.650 H Granulocytes # Neutrophils # 11.2 H Lymphocytes # 1.8 Monocytes # 1.9 H Eosinophils # 0.2 Basophils # 0.1 Nucleated Red Blood 0.0 Cells # Prothrombin Time 17.1 H Prothrombin Time 1.3 Ratio INR International 1.38 Normalized Ratio Sodium Level 139 Potassium Level 3.5 Chloride Level 104 Carbon Dioxide Level 24 Anion Gap 11 Blood Urea Nitrogen 22 H Creatinine 1.17 Est Glomerular > 60 Filtrat Rate mL/min Glucose Level 102 # Hemoglobin A1c 6.3 H Calcium Level 8.9 Total Bilirubin 3.0 H Direct Bilirubin 1.20 #H Indirect Bilirubin 1.8 H Aspartate Amino 140 #H Transf (AST/SGOT) Alanine 90 H Aminotransferase (AL T/SGPT) Alkaline Phosphatase 178 H Total Protein 7.2 Albumin 2.8 L Globulin 4.40 H Albumin/Globulin 0.63 Ratio Amylase Level 168 H Lipase 468 H Test 07/03/18 08:02 Bedside Glucose 147 Medications Medication Current Medications IV Flush (NS 3 ml) 3 ml PER PROTOCOL IV ; Start 06/30/18 at 21:00 Ondansetron HCl (Zofran Inj) 4 mg Q6H PRN IV NAUSEA/VOMITING Last administered on 06/30/18at 22:54; Admin Dose 4 MG; Start 06/30/18 at 21:00 Acetaminophen (Tylenol Tab) 650 mg Q6H PRN PO .PAIN 1-3 OR TEMP Last administe red on 07/01/18at 02:40; Admin Dose 650 MG; Start 06/30/18 at 21:00 Lorazepam (Ativan) 2 mg Q2H PRN IV CONTROL WITHDRAWAL SYMPTOMS Last administered on 07/03/18at 05:58; Admin Dose 2 MG; Start 06/30/18 at 21:00 Piperacillin Sod/ Tazobactam Sod 100 ml @ 200 mls/hr Q6 IVPB Last administered on 07/03/18at 05:58; Admin Dose 200 MLS/HR; Start 07/01/18 at 00:00 Lactulose (Enulose) 20 gm Q8 PO Last administered on 07/03/18at 05:58; Admin Dose 20 GM; Start 07/01/18 at 00:00 Miscellaneous Information 1 ea NOTE XX ; Start 06/30/18 at 23:45 Glucose (Glutose) 15 gm Q15M PRN PO DECREASED GLUCOSE; Start 06/30/18 at 23:45 Glucose (Glutose) 22.5 gm Q15M PRN PO DECREASED GLUCOSE; Start 06/30/18 at 23:45 Dextrose (D50w Syringe) 25 ml Q15M PRN IV DECREASED GLUCOSE; Start 06/30/18 at 23:45 Dextrose (D50w Syringe) 50 ml Q15M PRN IV DECREASED GLUCOSE; Start 06/30/18 at 23:45 Glucagon (Glucagen) 1 mg Q15M PRN IM DECREASED GLUCOSE; Start 06/30/18 at 23:45 Glucose (Glutose) 15 gm Q15M PRN BUCCAL DECREASED GLUCOSE; Start 06/30/18 at 23:45 Multivitamins Therapeutic (Theragran) 1 tab DAILY PO Last administered on 07/03/18 08:16; Admin Dose 1 TAB; Start 07/01/18 at 09:00 Folic Acid (Folic Acid) 1 mg DAILY PO Last administered on 07/03/18 08:16; Admin Dose 1 MG; Start 07/01/18 at 09:00 Thiamine HCl (Vitamin B1) 200 mg BID PO Last administered on 07/03/18 08:16; Admin Dose 200 MG; Start 07/01/18 at 21:00 Chlordiazepoxide (Librium) 50 mg Q8 PO Last administered on 07/03/18at 05:58; Admin Dose 50 MG; Start 07/01/18 at 22:00 Insulin Aspart (Novolog Insulin Pen) NOVOLOG *MILD* ALGORITHM WITH MEALS BEDTIME SC Last administered on 07/03/18 08:18; Admin Dose 1 UNIT; Start 07/01/18 at 21:00 Insulin Glargine (Lantus) 9 units DAILY@0800 SC Last administered on 07/03/18 08:18; Admin Dose 9 UNITS; Start 07/02/18 at 10:30 Prednisolone (Prelone) 40 mg DAILY PO ; Start 07/03/18 at 09:00 MAO MAGALLON MD Jul 03, 2018 12:33
[2018-07-03] MEDS: predniSOLONE (3 MG/ML) CUP PO SCH (12:47)
--- NOTE | 2018-07-03 14:22 | PN ---
Date/Time of Note Date/Time of Note DATE: 07/03/18 TIME: 14:18 Assessment/Plan VTE Prophylaxis Risk score (from Nsg)>0 risk: 1 SCD applied (from Nsg): Yes Pharmacological prophylaxis: heparin Lines/Catheters IV Catheter Type (from Nrsg): Saline Lock Urinary Cath still in place: No Assessment/Plan Assessment/Plan Assessment: Alcoholic hepatitis Alcohol withdrawal Thickening of gallbladder on CT Jaundice Pancreatitis -elevated amylase and lipase -abdominal pain resolved Elevated LFT's Hyperbilirubinemia Fatty liver Portal gastropathy on CT Gram-negative bacteremia UTI Leukocytosis Alcohol abuse Plan: Continue diabetic diet Monitor LFTs, stable. Supportive treatment Continue treatment of withdrawal, Discussed treatment of alcoholic hepatitis/fatty liver and once again reinforced alcohol cessation. Recommend EGD for screening for esophageal varices once the patient is stable v ersus outpatient. Patient seen in collaboration with Dr. Perkins Subjective: Patient denies abdominal pain, nausea or vomiting. Tolerating diabetic diet. Liver enzymes mildly increased from prior though are overall stable. Bilirubin is trending down. Will continue to monitor and continue current treatment plan. Exam PHYSICAL EXAMINATION: GENERAL: Well developed, jaundice , tremors , well nourished, alert & oriented x 3, in no acute distress SKIN: No lesions, no stigmata chronic liver disease, no evidence of bleeding diathesis LYMPHATIC: No palpable lymphadenopathy. HEAD: Normocephalic, atraumatic, no tenderness. EYES: Pupils equal reactive to light and accommodation, full extraocular movements, sclera-icteric, no discharge. EARS/NOSE AND THROAT: Ears normal, nose normal, oropharynx normal, oral membranes well hydrated without lesions. NECK: Supple, no masses, thyroid normal, JVP within normal limits, carotids normal without bruits. CHEST: Inspection within normal limits. CARDIOVASCULAR: Heart: Regular rate and rhythm, no murmurs, gallops or rubs. Peripheral pulses present within normal limits, no cyanosis, clubbing or edemas. No pulsatile abdominal mass RESPIRATORY: Lungs clear to auscultation and percussion, no wheezing, no rubs GASTROINTESTINAL AND LIVER: Abdomen: Soft, no tenderness, non-distended, no hernias, no masses, no organomegaly, no ascites, no guarding, no rebound tenderness, normoactive bowel sounds. Rectal: Deferred. GENITOURINARY: [Male genitalia within normal limits. EXTREMITIES: No cyanosis, clubbing or edema. Result Diagram: 07/03/18 0439 07/03/18 0439 Results 24hrs Laboratory Tests Test 07/02/18 17:43 07/02/18 21:31 07/03/18 04:39 07/03/18 08:02 Bedside Glucose 126 147 147 White Blood Count 15.8 #H Red Blood Count 3.55 L Hemoglobin 11.3 L Hematocrit 33.3 L Mean Corpuscular 93.8 Volume Mean Corpuscular 31.8 Hemoglobin Mean Corpuscular 33.9 Hemoglobin Concent Red Cell 14.1 Distribution Width Platelet Count 145 Mean Platelet Volume 10.5 H Immature 4.100 H Granulocytes % Neutrophils % 71.0 Lymphocytes % 11.1 L Monocytes % 11.8 H Eosinophils % 1.2 Basophils % 0.8 Nucleated Red Blood 0.0 Cells % Immature 0.650 H Granulocytes # Neutrophils # 11.2 H Lymphocytes # 1.8 Monocytes # 1.9 H Eosinophils # 0.2 Basophils # 0.1 Nucleated Red Blood 0.0 Cells # Prothrombin Time 17.1 H Prothrombin Time 1.3 Ratio INR International 1.38 Normalized Ratio Sodium Level 139 Potassium Level 3.5 Chloride Level 104 Carbon Dioxide Level 24 Anion Gap 11 Blood Urea Nitrogen 22 H Creatinine 1.17 Est Glomerular > 60 Filtrat Rate mL/min Glucose Level 102 # Hemoglobin A1c 6.3 H Calcium Level 8.9 Total Bilirubin 3.0 H Direct Bilirubin 1.20 #H Indirect Bilirubin 1.8 H Aspartate Amino 140 #H Transf (AST/SGOT) Alanine 90 H Aminotransferase (AL T/SGPT) Alkaline Phosphatase 178 H Total Protein 7.2 Albumin 2.8 L Globulin 4.40 H Albumin/Globulin 0.63 Ratio Amylase Level 168 H Lipase 468 H Test 07/03/18 12:50 Bedside Glucose 186 CC: LISS PERKINS MD ; Exam/Review of Systems Exam Vitals Vital Signs Date Temp Pulse Resp B/P (MAP) Pulse Ox O2 O2 Flow FiO2 Time Delivery Rate 07/03/18 99.3 106 16 98/65 (76) 98 08:04 06/30/18 Room Air 21:48 Intake and Output 07/02/18 07/02/18 07/03/18 1515:00 23:00 07:00 IntakeIntake Total 500 ml 580 ml 100 ml OutputOutput Total 600 ml BalanceBalance 500 ml 580 ml -500 ml Results Results 24hrs Laboratory Tests Test 07/02/18 17:43 07/02/18 21:31 07/03/18 04:39 07/03/18 08:02 Bedside Glucose 126 147 147 White Blood Count 15.8 #H Red Blood Count 3.55 L Hemoglobin 11.3 L Hematocrit 33.3 L Mean Corpuscular 93.8 Volume Mean Corpuscular 31.8 Hemoglobin Mean Corpuscular 33.9 Hemoglobin Concent Red Cell 14.1 Distribution Width Platelet Count 145 Mean Platelet Volume 10.5 H Immature 4.100 H Granulocytes % Neutrophils % 71.0 Lymphocytes % 11.1 L Monocytes % 11.8 H Eosinophils % 1.2 Basophils % 0.8 Nucleated Red Blood 0.0 Cells % Immature 0.650 H Granulocytes # Neutrophils # 11.2 H Lymphocytes # 1.8 Monocytes # 1.9 H Eosinophils # 0.2 Basophils # 0.1 Nucleated Red Blood 0.0 Cells # Prothrombin Time 17.1 H Prothrombin Time 1.3 Ratio INR International 1.38 Normalized Ratio Sodium Level 139 Potassium Level 3.5 Chloride Level 104 Carbon Dioxide Level 24 Anion Gap 11 Blood Urea Nitrogen 22 H Creatinine 1.17 Est Glomerular > 60 Filtrat Rate mL/min Glucose Level 102 # Hemoglobin A1c 6.3 H Calcium Level 8.9 Total Bilirubin 3.0 H Direct Bilirubin 1.20 #H Indirect Bilirubin 1.8 H Aspartate Amino 140 #H Transf (AST/SGOT) Alanine 90 H Aminotransferase (AL T/SGPT) Alkaline Phosphatase 178 H Total Protein 7.2 Albumin 2.8 L Globulin 4.40 H Albumin/Globulin 0.63 Ratio Amylase Level 168 H Lipase 468 H Test 07/03/18 12:50 Bedside Glucose 186 Medications Medication Current Medications IV Flush (NS 3 ml) 3 ml PER PROTOCOL IV ; Start 06/30/18 at 21:00 Ondansetron HCl (Zofran Inj) 4 mg Q6H PRN IV NAUSEA/VOMITING Last administered on 06/30/18at 22:54; Admin Dose 4 MG; Start 06/30/18 at 21:00 Acetaminophen (Tylenol Tab) 650 mg Q6H PRN PO .PAIN 1-3 OR TEMP Last admin istered on 07/01/18at 02:40; Admin Dose 650 MG; Start 06/30/18 at 21:00 Lorazepam (Ativan) 2 mg Q2H PRN IV CONTROL WITHDRAWAL SYMPTOMS Last administered on 07/03/18 05:58; Admin Dose 2 MG; Start 06/30/18 at 21:00 Piperacillin Sod/ Tazobactam Sod 100 ml @ 200 mls/hr Q6 IVPB Last administered on 07/03/18 12:47; Admin Dose 200 MLS/HR; Start 07/01/18 at 00:00 Lactulose (Enulose) 20 gm Q8 PO Last administered on 07/03/18 05:58; Admin Dose 20 GM; Start 07/01/18 at 00:00 Miscellaneous Information 1 ea NOTE XX ; Start 06/30/18 at 23:45 Glucose (Glutose) 15 gm Q15M PRN PO DECREASED GLUCOSE; Start 06/30/18 at 23:45 Glucose (Glutose) 22.5 gm Q15M PRN PO DECREASED GLUCOSE; Start 06/30/18 at 23:4 5 Dextrose (D50w Syringe) 25 ml Q15M PRN IV DECREASED GLUCOSE; Start 06/30/18 at 23:45 Dextrose (D50w Syringe) 50 ml Q15M PRN IV DECREASED GLUCOSE; Start 06/30/18 at 23:45 Glucagon (Glucagen) 1 mg Q15M PRN IM DECREASED GLUCOSE; Start 06/30/18 at 23:45 Glucose (Glutose) 15 gm Q15M PRN BUCCAL DECREASED GLUCOSE; Start 06/30/18 at 23:45 Multivitamins Therapeutic (Theragran) 1 tab DAILY PO Last administered on 07/03/18 08:16; Admin Dose 1 TAB; Start 07/01/18 at 09:00 Folic Acid (Folic Acid) 1 mg DAILY PO Last administered on 07/03/18 08:16; Admin Dose 1 MG; Start 07/01/18 at 09:00 Thiamine HCl (Vitamin B1) 200 mg BID PO Last administered on 07/03/18 08:16; Admin Dose 200 MG; Start 07/01/18 at 21:00 Chlordiazepoxide (Librium) 50 mg Q8 PO Last administered on 07/03/18 05:58; Admin Dose 50 MG; Start 07/01/18 at 22:00 Insulin Aspart (Novolog Insulin Pen) NOVOLOG *MILD* ALGORITHM WITH MEALS BEDTIME SC Last administered on 4/20/19at 12:54; Admin Dose 1 UNIT; Start 07/01/18 at 21:00 Insulin Glargine (Lantus) 9 units DAILY@0800 SC Last administered on 07/03/18at 08:18; Admin Dose 9 UNITS; Start 07/02/18 at 10:30 Prednisolone (Prelone) 40 mg DAILY PO Last administered on 07/03/18at 12:47; Admin Dose 40 MG; Start 07/03/18 at 09:00 Sodium Chloride 1,000 ml @ 75 mls/hr [id number] IV Last administered on 07/03/18at 13:00; Admin Dose 75 MLS/HR; Start 07/03/18 at 12:30 JACQUELINE IRWIN NP Jul 03, 2018 14:22
--- NOTE | 2018-07-03 14:33 | PN ---
Date/Time of Note Date/Time of Note DATE: 07/03/18 TIME: 14:32 Assessment/Plan VTE Prophylaxis Risk score (from Ns)>0 risk: 1 SCD applied (from Ns): Yes Pharmacological prophylaxis: heparin Lines/Catheters IV Catheter Type (from Nrs): Saline Lock Urinary Cath still in place: No Assessment/Plan Hospital Course EXAM Calm Alert, oriented No tremors or fasciculations Jaundiced RRR CTAB Soft nt nd No edema 38 yo male with alcohol use d/o presents with alcoholic hepatitis and sepsis Alcohol withdrawal syndrome: - Continue librium taper with ativan PRN Alcoholic hepatitis: - Continue steroid course, converted to PO prednisolone - Lactulose - Trend LFTs - MRCP without gall stones - paracentesis if possible Sepsis with GNR bacteremia from UTI: - Continue IV zosyn until speciation. Source appears to be urinary Hyponatremia: - Resolving nicely Hyperglycemia: - likely from steroids, stress. A1C not very high - Low dose lantus Alcohol use d/o: - [place] and family counseled extensively on cessation Hyponatremia: - Resolved Dc plan: to home vs rehab facility Result Diagram: 07/03/18 0439 07/03/18 0439 Results 24hrs Laboratory Tests Test 07/02/18 17:43 07/02/18 21:31 07/03/18 04:39 07/03/18 08:02 Bedside Glucose 126 147 147 White Blood Count 15.8 #H Red Blood Count 3.55 L Hemoglobin 11.3 L Hematocrit 33.3 L Mean Corpuscular 93.8 Volume Mean Corpuscular 31.8 Hemoglobin Mean Corpuscular 33.9 Hemoglobin Concent Red Cell 14.1 Distribution Width Platelet Count 145 Mean Platelet Volume 10.5 H Immature 4.100 H Granulocytes % Neutrophils % 71.0 Lymphocytes % 11.1 L Monocytes % 11.8 H Eosinophils % 1.2 Basophils % 0.8 Nucleated Red Blood 0.0 Cells % Immature 0.650 H Granulocytes # Neutrophils # 11.2 H Lymphocytes # 1.8 Monocytes # 1.9 H Eosinophils # 0.2 Basophils # 0.1 Nucleated Red Blood 0.0 Cells # Prothrombin Time 17.1 H Prothrombin Time 1.3 Ratio INR International 1.38 Normalized Ratio Sodium Level 139 Potassium Level 3.5 Chloride Level 104 Carbon Dioxide Level 24 Anion Gap 11 Blood Urea Nitrogen 22 H Creatinine 1.17 Est Glomerular > 60 Filtrat Rate mL/min Glucose Level 102 # Hemoglobin A1c 6.3 H Calcium Level 8.9 Total Bilirubin 3.0 H Direct Bilirubin 1.20 #H Indirect Bilirubin 1.8 H Aspartate Amino 140 #H Transf (AST/SGOT) Alanine 90 H Aminotransferase (AL T/SGPT) Alkaline Phosphatase 178 H Total Protein 7.2 Albumin 2.8 L Globulin 4.40 H Albumin/Globulin 0.63 Ratio Amylase Level 168 H Lipase 468 H Test 07/03/18 12:50 Bedside Glucose 186 Subjective 24 Hr Interval Summary Free Text/Dictation Episdoe of agitation last night, required haldol No w/d symptoms Sepsis resolved Doing well Exam/Review of Systems Exam Vitals Vital Signs Date Temp Pulse Resp B/P (MAP) Pulse Ox O2 O2 Flow FiO2 Time Delivery Rate 07/03/18 99.3 106 16 98/65 (76) 98 08:04 06/30/18 Room Air 21:48 Intake and Output 07/02/18 07/02/18 07/03/18 1515:00 23:00 07:00 IntakeIntake Total 500 ml 580 ml 100 ml OutputOutput Total 600 ml BalanceBalance 500 ml 580 ml -500 ml Results Results 24hrs Laboratory Tests Test 07/02/18 17:43 07/02/18 21:31 07/03/18 04:39 07/03/18 08:02 Bedside Glucose 126 147 147 White Blood Count 15.8 #H Red Blood Count 3.55 L Hemoglobin 11.3 L Hematocrit 33.3 L Mean Corpuscular 93.8 Volume Mean Corpuscular 31.8 Hemoglobin Mean Corpuscular 33.9 Hemoglobin Concent Red Cell 14.1 Distribution Width Platelet Count 145 Mean Platelet Volume 10.5 H Immature 4.100 H Granulocytes % Neutrophils % 71.0 Lymphocytes % 11.1 L Monocytes % 11.8 H Eosinophils % 1.2 Basophils % 0.8 Nucleated Red Blood 0.0 Cells % Immature 0.650 H Granulocytes # Neutrophils # 11.2 H Lymphocytes # 1.8 Monocytes # 1.9 H Eosinophils # 0.2 Basophils # 0.1 Nucleated Red Blood 0.0 Cells # Prothrombin Time 17.1 H Prothrombin Time 1.3 Ratio INR International 1.38 Normalized Ratio Sodium Level 139 Potassium Level 3.5 Chloride Level 104 Carbon Dioxide Level 24 Anion Gap 11 Blood Urea Nitrogen 22 H Creatinine 1.17 Est Glomerular > 60 Filtrat Rate mL/min Glucose Level 102 # Hemoglobin A1c 6.3 H Calcium Level 8.9 Total Bilirubin 3.0 H Direct Bilirubin 1.20 #H Indirect Bilirubin 1.8 H Aspartate Amino 140 #H Transf (AST/SGOT) Alanine 90 H Aminotransferase (AL T/SGPT) Alkaline Phosphatase 178 H Total Protein 7.2 Albumin 2.8 L Globulin 4.40 H Albumin/Globulin 0.63 Ratio Amylase Level 168 H Lipase 468 H Test 07/03/18 12:50 Bedside Glucose 186 Medications Medication Current Medications IV Flush (NS 3 ml) 3 ml PER PROTOCOL IV ; Start 06/30/18 at 21:00 Ondansetron HCl (Zofran Inj) 4 mg Q6H PRN IV NAUSEA/VOMITING Last administered on 06/30/18at 22:54; Admin Dose 4 MG; Start 06/30/18 at 21:00 Acetaminophen (Tylenol Tab) 650 mg Q6H PRN PO .PAIN 1-3 OR TEMP Last administered on 07/01/18at 02:40; Admin Dose 650 MG; Start 06/30/18 at 21:00 Lorazepam (Ativan) 2 mg Q2H PRN IV CONTROL WITHDRAWAL SYMPTOMS Last administered on 07/03/18at 05:58; Admin Dose 2 MG; Start 06/30/18 at 21:00 Piperacillin Sod/ Tazobactam Sod 100 ml @ 200 mls/hr Q6 IVPB Last administered on 07/03/18at 12:47; Admin Dose 200 MLS/HR; Start 07/01/18 at 00:00 Lactulose (Enulose) 20 gm Q8 PO Last administered on 07/03/18at 05:58; Admin Dose 20 GM; Start 07/01/18 at 00:00 Miscellaneous Information 1 ea NOTE XX ; Start 06/30/18 at 23:45 Glucose (Glutose) 15 gm Q15M PRN PO DECREASED GLUCOSE; Start 06/30/18 at 23:45 Glucose (Glutose) 22.5 gm Q15M PRN PO DECREASED GLUCOSE; Start 06/30/18 at 23:45 Dextrose (D50w Syringe) 25 ml Q15M PRN IV DECREASED GLUCOSE; Start 06/30/18 at 23:45 Dextrose (D50w Syringe) 50 ml Q15M PRN IV DECREASED GLUCOSE; Start 06/30/18 at 23:45 Glucagon (Glucagen) 1 mg Q15M PRN IM DECREASED GLUCOSE; Start 06/30/18 at 23:45 Glucose (Glutose) 15 gm Q15M PRN BUCCAL DECREASED GLUCOSE; Start 06/30/18 at 23:45 Multivitamins Therapeutic (Theragran) 1 tab DAILY PO Last administered on 07/03/18 08:16; Admin Dose 1 TAB; Start 07/01/18 at 09:00 Folic Acid (Folic Acid) 1 mg DAILY PO Last administered on 07/03/18 08:16; Admin Dose 1 MG; Start 07/01/18 at 09:00 Thiamine HCl (Vitamin B1) 200 mg BID PO Last administered on 07/03/18 08:16; Admin Dose 200 MG; Start 07/01/18 at 21:00 Chlordiazepoxide (Librium) 50 mg Q8 PO Last administered on 07/03/18 05:58; Admin Dose 50 MG; Start 07/01/18 at 22:00 Insulin Aspart (Novolog Insulin Pen) NOVOLOG *MILD* ALGORITHM WITH MEALS BEDTIME SC Last administered on 07/03/18 12:54; Admin Dose 1 UNIT; Start 07/01/18 at 21:00 Insulin Glargine (Lantus) 9 units DAILY@0800 SC Last administered on 07/03/18 08:18; Admin Dose 9 UNITS; Start 07/02/18 at 10:30 Prednisolone (Prelone) 40 mg DAILY PO Last administered on 07/03/18 12:47; Admin Dose 40 MG; Start 07/03/18 at 09:00 Sodium Chloride 1,000 ml @ 75 mls/hr [id number] IV Last administered on 07/03/18 13:00; Admin Dose 75 MLS/HR; Start 07/03/18 at 12:30 RODDY CARMICHAEL MD Jul 03, 2018 14:33
[2018-07-03 14:53] VITALS: BP 111/67; PULSE 69; RESP 16
[2018-07-03] MEDS ORDERED: ACCU-CHEK XX ONE (18:00)
[2018-07-03] MEDS ORDERED: INSULIN ASPART [NOVOLOG] 3 ML PEN SC ONE (18:00)
[2018-07-03 20:05] VITALS: BP 108/65; PULSE 85; RESP 18
[2018-07-03] MEDS: CHLORDIAZEPOXIDE 25 MG CAP PO PRN (23:06)
[2018-07-04] MEDS: LORAZEPAM 2 MG INJ IV PRN ×2 (01:53→08:29)
[2018-07-04 02:44] VITALS: BP 130/79; PULSE 77; RESP 18
[2018-07-04] MEDS: LACTULOSE 30ML CUP PO SCH ×3 (05:41→21:08)
[2018-07-04] MEDS: PIPER-TAZO 3.375 GM IV (PMX) 100 ML IVPB SCH ×4 (05:41→23:25)
[2018-07-04 07:52] VITALS: BP 112/70; RESP 16
[2018-07-04] MEDS: INSULIN ASPART [NOVOLOG] 3 ML PEN SC SCH ×7 (08:00→21:35)
[2018-07-04] MEDS: MULTIVITAMINS THERAPEUTIC TAB PO SCH (08:22)
[2018-07-04] MEDS: FOLIC ACID 1 MG TAB PO SCH (08:22)
[2018-07-04] MEDS: THIAMINE 100 MG TAB PO SCH ×2 (08:22→21:08)
[2018-07-04] MEDS: INSULIN GLARGINE [LANTus] (100 UNITS/ML) SYG SC SCH (08:33)
[2018-07-04] MEDS: CHLORDIAZEPOXIDE 25 MG CAP PO PRN (08:51)
[2018-07-04] MEDS: predniSOLONE (3 MG/ML) CUP PO SCH (10:10)
[2018-07-04] MEDS ORDERED: HALOPERIDOL 5 MG INJ IM PRN (11:00)
--- NOTE | 2018-07-04 13:03 | PN ---
Date/Time of Note Date/Time of Note DATE: 07/04/18 TIME: 12:59 Assessment/Plan VTE Prophylaxis Risk score (from Nsg)>0 risk: 1 SCD applied (from Ns): No SCD contraindicated: low risk/ambulating Pharmacological prophylaxis: NA/contraindicated Pharm contraindication: liver dx Lines/Catheters Urinary Cath still in place: No Assessment/Plan Assessment/Plan Assessment: Alcoholic hepatitis Alcohol withdrawal Thickening of gallbladder on CT Jaundice Pancreatitis -elevated amylase and lipase -abdominal pain resolved Elevated LFT's Hyperbilirubinemia Fatty liver Portal gastropathy on CT Gram-negative bacteremia UTI Leukocytosis Alcohol abuse Plan: Continue diabetic diet Monitor LFTs, stable, mild improvement in bilirubin. Supportive treatment Continue treatment of ETOH withdrawal, Discussed treatment of alcoholic hepatitis/fatty liver and once again reinforced alcohol cessation. Recommend EGD for screening for esophageal varices once the patient is stable v ersus outpatient. Patient seen in collaboration with Dr. Perkins Subjective: Patient is resting and sleeping. Tolerating diabetic diet. Liver enzymes are overall stable. Bilirubin is trending down. Discussed treatment plan with family at bedside. Will continue to monitor and continue current treatment plan. Exam PHYSICAL EXAMINATION: GENERAL: Well developed, jaundice , tremors , well nourished, alert & oriented x 3, in no acute distress SKIN: No lesions, no stigmata chronic liver disease, no evidence of bleeding diathesis LYMPHATIC: No palpable lymphadenopathy. HEAD: Normocephalic, atraumatic, no tenderness. EYES: Pupils equal reactive to light and accommodation, full extraocular movements, sclera-icteric, no discharge. EARS/NOSE AND THROAT: Ears normal, nose normal, oropharynx normal, oral membranes well hydrated without lesions. NECK: Supple, no masses, thyroid normal, JVP within normal limits, carotids normal without bruits. CHEST: Inspection within normal limits. CARDIOVASCULAR: Heart: Regular rate and rhythm, no murmurs, gallops or rubs. Peripheral pulses present within normal limits, no cyanosis, clubbing or edemas. No pulsatile abdominal mass RESPIRATORY: Lungs clear to auscultation and percussion, no wheezing, no rubs GASTROINTESTINAL AND LIVER: Abdomen: Soft, no tenderness, non-distended, no hernias, no masses, no organomegaly, no ascites, no guarding, no rebound tenderness, normoactive bowel sounds. Rectal: Deferred. GENITOURINARY: [Male genitalia within normal limits. EXTREMITIES: No cyanosis, clubbing or edema. Result Diagram: 07/04/18 0448 07/04/18 0448 Results 24hrs Laboratory Tests Test 07/03/18 15:00 07/03/18 17:47 07/03/18 20:22 07/04/18 01:54 Urine Random 37.47 Creatinine Urine Random Sodium 61 Bedside Glucose 351 H 222 H 242 H Test 07/04/18 04:48 07/04/18 08:21 White Blood Count 19.6 #H Red Blood Count 3.49 L Hemoglobin 11.0 L Hematocrit 32.3 L Mean Corpuscular 92.6 Volume Mean Corpuscular 31.5 Hemoglobin Mean Corpuscular 34.1 Hemoglobin Concent Red Cell 14.1 Distribution Width Platelet Count 163 Mean Platelet Volume 10.2 Immature 4.700 H Granulocytes % Neutrophils % 79.1 H Lymphocytes % 7.8 L Monocytes % 7.7 Eosinophils % 0.4 Basophils % 0.3 Nucleated Red Blood 0.0 Cells % Immature 0.930 H Granulocytes # Neutrophils # 15.5 H Lymphocytes # 1.5 Monocytes # 1.5 H Eosinophils # 0.1 Basophils # 0.1 Nucleated Red Blood 0.0 Cells # Prothrombin Time 16.8 H Prothrombin Time 1.3 Ratio INR International 1.35 Normalized Ratio Sodium Level 140 Potassium Level 3.5 Chloride Level 105 Carbon Dioxide Level 26 Anion Gap 9 Blood Urea Nitrogen 17 Creatinine 1.09 Est Glomerular > 60 Filtrat Rate mL/min Glucose Level 166 Calcium Level 9.1 Total Bilirubin 2.2 H Direct Bilirubin 0.50 #H Indirect Bilirubin 1.7 H Aspartate Amino 132 H Transf (AST/SGOT) Alanine 108 H Aminotransferase (AL T/SGPT) Alkaline Phosphatase 219 H Total Protein 7.6 Albumin 2.9 L Globulin 4.70 H Albumin/Globulin 0.61 Ratio Bedside Glucose 111 CC: LISS PERKINS MD ; Exam/Review of Systems Exam Vitals Vital Signs Date Temp Pulse Resp B/P (MAP) Pulse Ox O2 O2 Flow FiO2 Time Delivery Rate 07/04/18 98.6 16 112/70 98 Room Air 07:52 (84) 07/04/18 77 02:44 Intake and Output 07/03/18 07/03/18 07/04/18 1515:00 23:00 07:00 IntakeIntake Total 860 ml 1205 ml 600 ml BalanceBalance 860 ml 1205 ml 600 ml Results Results 24hrs Laboratory Tests Test 07/03/18 15:00 07/03/18 17:47 07/03/18 20:22 07/04/18 01:54 Urine Random 37.47 Creatinine Urine Random Sodium 61 Bedside Glucose 351 H 222 H 242 H Test 07/04/18 04:48 07/04/18 08:21 White Blood Count 19.6 #H Red Blood Count 3.49 L Hemoglobin 11.0 L Hematocrit 32.3 L Mean Corpuscular 92.6 Volume Mean Corpuscular 31.5 Hemoglobin Mean Corpuscular 34.1 Hemoglobin Concent Red Cell 14.1 Distribution Width Platelet Count 163 Mean Platelet Volume 10.2 Immature 4.700 H Granulocytes % Neutrophils % 79.1 H Lymphocytes % 7.8 L Monocytes % 7.7 Eosinophils % 0.4 Basophils % 0.3 Nucleated Red Blood 0.0 Cells % Immature 0.930 H Granulocytes # Neutrophils # 15.5 H Lymphocytes # 1.5 Monocytes # 1.5 H Eosinophils # 0.1 Basophils # 0.1 Nucleated Red Blood 0.0 Cells # Prothrombin Time 16.8 H Prothrombin Time 1.3 Ratio INR International 1.35 Normalized Ratio Sodium Level 140 Potassium Level 3.5 Chloride Level 105 Carbon Dioxide Level 26 Anion Gap 9 Blood Urea Nitrogen 17 Creatinine 1.09 Est Glomerular > 60 Filtrat Rate mL/min Glucose Level 166 Calcium Level 9.1 Total Bilirubin 2.2 H Direct Bilirubin 0.50 #H Indirect Bilirubin 1.7 H Aspartate Amino 132 H Transf (AST/SGOT) Alanine 108 H Aminotransferase (AL T/SGPT) Alkaline Phosphatase 219 H Total Protein 7.6 Albumin 2.9 L Globulin 4.70 H Albumin/Globulin 0.61 Ratio Bedside Glucose 111 Medications Medication Current Medications IV Flush (NS 3 ml) 3 ml PER PROTOCOL IV ; Start 06/30/18 at 21:00 Ondansetron HCl (Zofran Inj) 4 mg Q6H PRN IV NAUSEA/VOMITING Last administered on 06/30/18at 22:54; Admin Dose 4 MG; Start 06/30/18 at 21:00 Acetaminophen (Tylenol Tab) 650 mg Q6H PRN PO .PAIN 1-3 OR TEMP Last administered on 07/01/18at 02:40; Admin Dose 650 MG; Start 06/30/18 at 21:00 Piperacillin Sod/ Tazobactam Sod 100 ml @ 200 mls/hr Q6 IVPB Last administered on 07/04/18at 05:41; Admin Dose 200 MLS/HR; Start 07/01/18 at 00:00 Lactulose (Enulose) 20 gm Q8 PO Last administered on 07/04/18at 05:41; Admin Dose 20 GM; Start 07/01/18 at 00:00 Miscellaneous Information 1 ea NOTE XX ; Start 06/30/18 at 23:45 Glucose (Glutose) 15 gm Q15M PRN PO DECREASED GLUCOSE; Start 06/30/18 at 23:45 Glucose (Glutose) 22.5 gm Q15M PRN PO DECREASED GLUCOSE; Start 06/30/18 at 23:45 Dextrose (D50w Syringe) 25 ml Q15M PRN IV DECREASED GLUCOSE; Start 06/30/18 at 23:45 Dextrose (D50w Syringe) 50 ml Q15M PRN IV DECREASED GLUCOSE; Start 06/30/18 at 23:45 Glucagon (Glucagen) 1 mg Q15M PRN IM DECREASED GLUCOSE; Start 06/30/18 at 23:45 Glucose (Glutose) 15 gm Q15M PRN BUCCAL DECREASED GLUCOSE; Start 06/30/18 at 23:45 Multivitamins Therapeutic (Theragran) 1 tab DAILY PO Last administered on 07/04/18at 08:22; Admin Dose 1 TAB; Start 07/01/18 at 09:00 Folic Acid (Folic Acid) 1 mg DAILY PO Last administered on 07/04/18at 08:22; Admin Dose 1 MG; Start 07/01/18 at 09:00 Thiamine HCl (Vitamin B1) 200 mg BID PO Last administered on 07/04/18 08:22; Admin Dose 200 MG; Start 07/01/18 at 21:00 Insulin Aspart (Novolog Insulin Pen) NOVOLOG *MILD* ALGORITHM WITH MEALS BEDTIME SC Last administered on 07/03/18at 20:24; Admin Dose 2 UNIT; Start at 21:00 Insulin Glargine (Lantus) 9 units DAILY@0800 SC Last administered on 07/04/18at 08:33; Admin Dose 9 UNITS; Start 07/02/18 at 10:30 Prednisolone (Prelone) 40 mg DAILY PO Last administered on 07/04/18at 10:10; Admin Dose 40 MG; Start 07/03/18 at 09:00 Insulin Aspart (Novolog Insulin Pen) 4 unit WITH MEALS SC Last administered on 07/04/18at 08:28; Admin Dose 4 UNIT; Start 07/03/18 at 18:00 Haloperidol (Haldol) 2 mg Q8H PRN IM agitation; Start 07/04/18 at 11:00 JACQUELINE IRWIN NP Jul 04, 2018 13:03
[2018-07-04 14:00] VITALS: BP 92/58; PULSE 89; RESP 18
--- NOTE | 2018-07-04 15:41 | CONS ---
Assessment/Plan Assessment/Plan Assessment/Plan (Daily) 1. Hyponatremia, possibly acute versus subacute. Etiology secondary to beer potomania and low solute intake. The patient's sodium levels have been improved with ivf. Continue to monitor serial sodium levels closely. 2. TORIBIO: due to hypoperfusion with hemodynamic changes. decrease ivf to 50cc/hr and likely will d/c tomorrow 3. Benign prostatic hypertrophy, hepatitis. Continue medical management. 4. Cholestasis hyperbilirubinemia. US and MRI reviewed. Continue medical management. Follow up with GI. 5. ETOH abuse and withdrawal. Continue benzodiazepines. 6. Sepsis due to uti/bacteremia: cont abx and /u cx Consultation Date/Type/Reason Admit Date/Time Jun 30, 2018 at 20:51 Initial Consult Date 07/01/18 Date/Time of Note DATE: 07/04/18 TIME: 15:40 24 HR Interval Summary Free Text/Dictation tolerating ivf denies n/v, shortness of breath or urinary issues d/w rn gen nad cv rrr pulm ctab abd soft, nd ,nt +bs ext: no edema Exam/Review of Systems Exam Vitals Vital Signs Date Temp Pulse Resp B/P (MAP) Pulse Ox O2 O2 Flow FiO2 Time Delivery Rate 07/04/18 98.9 89 18 92/58 (69) 99 Room Air 14:00 Intake and Output 07/03/18 07/03/18 07/04/18 1515:00 23:00 07:00 IntakeIntake Total 860 ml 1205 ml 600 ml BalanceBalance 860 ml 1205 ml 600 ml Results Result Diagram: 07/04/18 0448 07/04/18 0448 Results 24hrs Laboratory Tests Test 07/03/18 17:47 07/03/18 20:22 07/04/18 01:54 07/04/18 04:48 Bedside Glucose 351 H 222 H 242 H White Blood Count 19.6 #H Red Blood Count 3.49 L Hemoglobin 11.0 L Hematocrit 32.3 L Mean Corpuscular 92.6 Volume Mean Corpuscular 31.5 Hemoglobin Mean Corpuscular 34.1 Hemoglobin Concent Red Cell 14.1 Distribution Width Platelet Count 163 Mean Platelet Volume 10.2 Immature 4.700 H Granulocytes % Neutrophils % 79.1 H Lymphocytes % 7.8 L Monocytes % 7.7 Eosinophils % 0.4 Basophils % 0.3 Nucleated Red Blood 0.0 Cells % Immature 0.930 H Granulocytes # Neutrophils # 15.5 H Lymphocytes # 1.5 Monocytes # 1.5 H Eosinophils # 0.1 Basophils # 0.1 Nucleated Red Blood 0.0 Cells # Prothrombin Time 16.8 H Prothrombin Time 1.3 Ratio INR International 1.35 Normalized Ratio Sodium Level 140 Potassium Level 3.5 Chloride Level 105 Carbon Dioxide Level 26 Anion Gap 9 Blood Urea Nitrogen 17 Creatinine 1.09 Est Glomerular > 60 Filtrat Rate mL/min Glucose Level 166 Calcium Level 9.1 Total Bilirubin 2.2 H Direct Bilirubin 0.50 #H Indirect Bilirubin 1.7 H Aspartate Amino 132 H Transf (AST/SGOT) Alanine 108 H Aminotransferase (AL T/SGPT) Alkaline Phosphatase 219 H Total Protein 7.6 Albumin 2.9 L Globulin 4.70 H Albumin/Globulin 0.61 Ratio Test 07/04/18 08:21 07/04/18 13:15 Bedside Glucose 111 238 H Medications Medication Current Medications IV Flush (NS 3 ml) 3 ml PER PROTOCOL IV ; Start 06/30/18 at 21:00 Ondansetron HCl (Zofran Inj) 4 mg Q6H PRN IV NAUSEA/VOMITING Last administered on 06/30/18at 22:54; Admin Dose 4 MG; Start 06/30/18 at 21:00 Acetaminophen (Tylenol Tab) 650 mg Q6H PRN PO .PAIN 1-3 OR TEMP Last administered on 07/01/18at 02:40; Admin Dose 650 MG; Start 06/30/18 at 21:00 Piperacillin Sod/ Tazobactam Sod 100 ml @ 200 mls/hr Q6 IVPB Last administered on 07/04/18at 13:17; Admin Dose 200 MLS/HR; Start 07/01/18 at 00:00 Lactulose (Enulose) 20 gm Q8 PO Last administered on 07/04/18at 13:17; Admin Dose 20 GM; Start 07/01/18 at 00:00 Miscellaneous Information 1 ea NOTE XX ; Start 06/30/18 at 23:45 Glucose (Glutose) 15 gm Q15M PRN PO DECREASED GLUCOSE; Start 06/30/18 at 23:45 Glucose (Glutose) 22.5 gm Q15M PRN PO DECREASED GLUCOSE; Start 06/30/18 at 23:45 Dextrose (D50w Syringe) 25 ml Q15M PRN IV DECREASED GLUCOSE; Start 06/30/18 at 23:45 Dextrose (D50w Syringe) 50 ml Q15M PRN IV DECREASED GLUCOSE; Start 06/30/18 at 23:45 Glucagon (Glucagen) 1 mg Q15M PRN IM DECREASED GLUCOSE; Start 06/30/18 at 23:45 Glucose (Glutose) 15 gm Q15M PRN BUCCAL DECREASED GLUCOSE; Start 06/30/18 at 23:45 Multivitamins Therapeutic (Theragran) 1 tab DAILY PO Last administered on 07/04/18 08:22; Admin Dose 1 TAB; Start 07/01/18 at 09:00 Folic Acid (Folic Acid) 1 mg DAILY PO Last administered on 07/04/18 08:22; Admin Dose 1 MG; Start 07/01/18 at 09:00 Thiamine HCl (Vitamin B1) 200 mg BID PO Last administered on 07/04/18 08:22; Admin Dose 200 MG; Start 07/01/18 at 21:00 Insulin Aspart (Novolog Insulin Pen) NOVOLOG *MILD* ALGORITHM WITH MEALS BEDTIME SC Last administered on 07/04/18 13:20; Admin Dose 3 UNIT; Start 07/01/18 at 21:00 Insulin Glargine (Lantus) 9 units DAILY@0800 SC Last administered on 07/04/18 08:33; Admin Dose 9 UNITS; Start 07/02/18 at 10:30 Prednisolone (Prelone) 40 mg DAILY PO Last administered on 07/04/18at 10:10; Admin Dose 40 MG; Start 07/03/18 at 09:00 Insulin Aspart (Novolog Insulin Pen) 4 unit WITH MEALS SC Last administered on 07/04/18at 13:20; Admin Dose 4 UNIT; Start 07/03/18 at 18:00 Haloperidol (Haldol) 2 mg Q8H PRN IM agitation; Start 07/04/18 at 11:00 MAO MAGALLON MD Jul 04, 2018 15:41
--- NOTE | 2018-07-04 17:00 | PN ---
Date/Time of Note Date/Time of Note DATE: 07/04/18 TIME: 16:59 Assessment/Plan VTE Prophylaxis Risk score (from Ns)>0 risk: 1 [place] [facility] [place] Yes Pharmacological prophylaxis: heparin Lines/Catheters Urinary Cath still in place: No Assessment/Plan Hospital Course EXAM Calm Alert, oriented No tremors or fasciculations Jaundiced RRR CTAB Soft nt nd No edema 38 yo male with alcohol use d/o presents with alcoholic hepatitis and sepsis Alcohol withdrawal syndrome: - dc librium taper. no need for further benzos - Thiamine, folate Alcoholic hepatitis: - Continue steroid course, converted to PO prednisolone - Lactulose - Trend LFTs - MRCP without gall stones - paracentesis if possible Sepsis with GNR bacteremia from UTI: - Complete course of PO bactrim Hyponatremia: - Resolved Hyperglycemia: - likely from steroids, stress. A1C not very high - basal/bolus insulin Alcohol use d/o: - [place] and family counseled extensively on cessation Hyponatremia: - Resolved Dc plan: to home vs rehab facility Result Diagram: 07/04/18 0448 07/04/18 0448 Results 24hrs Laboratory Tests Test 07/03/18 17:47 07/03/18 20:22 07/04/18 01:54 07/04/18 04:48 Bedside Glucose 351 H 222 H 242 H White Blood Count 19.6 #H Red Blood Count 3.49 L Hemoglobin 11.0 L Hematocrit 32.3 L Mean Corpuscular 92.6 Volume Mean Corpuscular 31.5 Hemoglobin Mean Corpuscular 34.1 Hemoglobin Concent Red Cell 14.1 Distribution Width Platelet Count 163 Mean Platelet Volume 10.2 Immature 4.700 H Granulocytes % Neutrophils % 79.1 H Lymphocytes % 7.8 L Monocytes % 7.7 Eosinophils % 0.4 Basophils % 0.3 Nucleated Red Blood 0.0 Cells % Immature 0.930 H Granulocytes # Neutrophils # 15.5 H Lymphocytes # 1.5 Monocytes # 1.5 H Eosinophils # 0.1 Basophils # 0.1 Nucleated Red Blood 0.0 Cells # Prothrombin Time 16.8 H Prothrombin Time 1.3 Ratio INR International 1.35 Normalized Ratio Sodium Level 140 Potassium Level 3.5 Chloride Level 105 Carbon Dioxide Level 26 Anion Gap 9 Blood Urea Nitrogen 17 Creatinine 1.09 Est Glomerular > 60 Filtrat Rate mL/min Glucose Level 166 Calcium Level 9.1 Total Bilirubin 2.2 H Direct Bilirubin 0.50 #H Indirect Bilirubin 1.7 H Aspartate Amino 132 H Transf (AST/SGOT) Alanine 108 H Aminotransferase (AL T/SGPT) Alkaline Phosphatase 219 H Total Protein 7.6 Albumin 2.9 L Globulin 4.70 H Albumin/Globulin 0.61 Ratio Test 07/04/18 08:21 07/04/18 13:15 Bedside Glucose 111 238 H Subjective 24 Hr Interval Summary Free Text/Dictation A bit delirious Comfortable Exam/Review of Systems Exam Vitals Vital Signs Date Temp Pulse Resp B/P (MAP) Pulse Ox O2 O2 Flow FiO2 Time Delivery Rate 07/04/18 98.9 89 18 92/58 (69) 99 Room Air 14:00 Intake and Output 07/03/18 07/03/18 07/04/18 1515:00 23:00 07:00 IntakeIntake Total 860 ml 1205 ml 600 ml BalanceBalance 860 ml 1205 ml 600 ml Results Results 24hrs Laboratory Tests Test 07/03/18 17:47 07/03/18 20:22 07/04/18 01:54 07/04/18 04:48 Bedside Glucose 351 H 222 H 242 H White Blood Count 19.6 #H Red Blood Count 3.49 L Hemoglobin 11.0 L Hematocrit 32.3 L Mean Corpuscular 92.6 Volume Mean Corpuscular 31.5 Hemoglobin Mean Corpuscular 34.1 Hemoglobin Concent Red Cell 14.1 Distribution Width Platelet Count 163 Mean Platelet Volume 10.2 Immature 4.700 H Granulocytes % Neutrophils % 79.1 H Lymphocytes % 7.8 L Monocytes % 7.7 Eosinophils % 0.4 Basophils % 0.3 Nucleated Red Blood 0.0 Cells % Immature 0.930 H Granulocytes # Neutrophils # 15.5 H Lymphocytes # 1.5 Monocytes # 1.5 H Eosinophils # 0.1 Basophils # 0.1 Nucleated Red Blood 0.0 Cells # Prothrombin Time 16.8 H Prothrombin Time 1.3 Ratio INR International 1.35 Normalized Ratio Sodium Level 140 Potassium Level 3.5 Chloride Level 105 Carbon Dioxide Level 26 Anion Gap 9 Blood Urea Nitrogen 17 Creatinine 1.09 Est Glomerular > 60 Filtrat Rate mL/min Glucose Level 166 Calcium Level 9.1 Total Bilirubin 2.2 H Direct Bilirubin 0.50 #H Indirect Bilirubin 1.7 H Aspartate Amino 132 H Transf (AST/SGOT) Alanine 108 H Aminotransferase (AL T/SGPT) Alkaline Phosphatase 219 H Total Protein 7.6 Albumin 2.9 L Globulin 4.70 H Albumin/Globulin 0.61 Ratio Test 07/04/18 08:21 07/04/18 13:15 Bedside Glucose 111 238 H Medications Medication Current Medications IV Flush (NS 3 ml) 3 ml PER PROTOCOL IV ; Start 06/30/18 at 21:00 Ondansetron HCl (Zofran Inj) 4 mg Q6H PRN IV NAUSEA/VOMITING Last administered on 06/30/18at 22:54; Admin Dose 4 MG; Start 06/30/18 at 21:00 Acetaminophen (Tylenol Tab) 650 mg Q6H PRN PO .PAIN 1-3 OR TEMP Last administered on 07/01/18at 02:40; Admin Dose 650 MG; Start 06/30/18 at 21:00 Piperacillin Sod/ Tazobactam Sod 100 ml @ 200 mls/hr Q6 IVPB Last administered on 07/04/18at 13:17; Admin Dose 200 MLS/HR; Start 07/01/18 at 00:00 Lactulose (Enulose) 20 gm Q8 PO Last administered on 07/04/18at 13:17; Admin Dose 20 GM; Start 07/01/18 at 00:00 Miscellaneous Information 1 ea NOTE XX ; Start 06/30/18 at 23:45 Glucose (Glutose) 15 gm Q15M PRN PO DECREASED GLUCOSE; Start 06/30/18 at 23:45 Glucose (Glutose) 22.5 gm Q15M PRN PO DECREASED GLUCOSE; Start 06/30/18 at 23:45 Dextrose (D50w Syringe) 25 ml Q15M PRN IV DECREASED GLUCOSE; Start 06/30/18 at 23:45 Dextrose (D50w Syringe) 50 ml Q15M PRN IV DECREASED GLUCOSE; Start 06/30/18 at 23:45 Glucagon (Glucagen) 1 mg Q15M PRN IM DECREASED GLUCOSE; Start 06/30/18 at 23:45 Glucose (Glutose) 15 gm Q15M PRN BUCCAL DECREASED GLUCOSE; Start 06/30/18 at 23:45 Multivitamins Therapeutic (Theragran) 1 tab DAILY PO Last administered on 07/04/18at 08:22; Admin Dose 1 TAB; Start 07/01/18 at 09:00 Folic Acid (Folic Acid) 1 mg DAILY PO Last administered on 07/04/18 08:22; Admin Dose 1 MG; Start 07/01/18 at 09:00 Thiamine HCl (Vitamin B1) 200 mg BID PO Last administered on 07/04/18 08:22; Admin Dose 200 MG; Start 07/01/18 at 21:00 Insulin Aspart (Novolog Insulin Pen) NOVOLOG *MILD* ALGORITHM WITH MEALS BEDTIME SC Last administered on 07/04/18 13:20; Admin Dose 3 UNIT; Start 07/01/18 at 21:00 Insulin Glargine (Lantus) 9 units DAILY@0800 SC Last administered on 07/04/18 08:33; Admin Dose 9 UNITS; Start 07/02/18 at 10:30 Prednisolone (Prelone) 40 mg DAILY PO Last administered on 07/04/18 10:10; Admin Dose 40 MG; Start 07/03/18 at 09:00 Insulin Aspart (Novolog Insulin Pen) 4 unit WITH MEALS SC Last administered on 07/04/18 13:20; Admin Dose 4 UNIT; Start 07/03/18 at 18:00 Haloperidol (Haldol) 2 mg Q8H PRN IM agitation; Start 07/04/18 at 11:00 RODDY CARMICHAEL MD Jul 04, 2018 17:00
[2018-07-04 19:59] VITALS: BP 101/69; PULSE 92; RESP 18
[2018-07-04] MEDS ORDERED: INSULIN ASPART [NOVOLOG] 3 ML PEN SC ONE (21:30)
[2018-07-04] MEDS ORDERED: ACCU-CHEK XX ONE (23:30)
[2018-07-05 01:50] VITALS: BP 113/66; RESP 18
[2018-07-05] MEDS: PIPER-TAZO 3.375 GM IV (PMX) 100 ML IVPB SCH (05:37)
[2018-07-05] MEDS: LACTULOSE 30ML CUP PO SCH ×3 (05:37→21:22)
[2018-07-05 07:35] VITALS: BP 92/60; PULSE 88; RESP 18
[2018-07-05] MEDS ORDERED: INSULIN GLARGINE [LANTus] (100 UNITS/ML) SYG SC SCH (08:00)
[2018-07-05] MEDS: INSULIN ASPART [NOVOLOG] 3 ML PEN SC SCH ×6 (08:00→21:25)
[2018-07-05] MEDS: FOLIC ACID 1 MG TAB PO SCH (08:26)
[2018-07-05] MEDS: MULTIVITAMINS THERAPEUTIC TAB PO SCH (08:26)
[2018-07-05] MEDS: THIAMINE 100 MG TAB PO SCH ×2 (08:26→21:22)
[2018-07-05] MEDS: predniSOLONE (3 MG/ML) CUP PO SCH (08:27)
--- NOTE | 2018-07-05 09:30 | PN ---
DATE: 07/05/2018 SUBJECTIVE: The patient remains stable with episodes of anxiety. No other events noted. OBJECTIVE: VITAL SIGNS: Blood pressure is 92/60, respirations 18, pulse 88, temperature 98.4. HEENT: Head is normocephalic. NECK: Supple. HEART: Regular rate. LUNGS: Show diminished breath sounds at the base. ABDOMEN: Soft, nontender to palpation without rebound or guarding. EXTREMITIES: Negative for clubbing, cyanosis, no edema. DERMATOLOGIC: No rashes. MUSCULOSKELETAL: No joint effusion. NEUROLOGIC: No change in exam. MEDICATIONS: Reviewed. LABORATORY DATA: Reviewed. ASSESSMENT AND PLAN: 1. Hypernatremia, etiology is secondary to beer potomania, low solute intake. The patient's sodium levels have improved. Continue to monitor. 2. Acute kidney injury, etiology is secondary to hemodynamics, volume depletion. The patient's yehuda l function has improved. IV fluids have been discontinued. Continue to monitor. 3. Benign prostatic hypertrophy. Continue medical management. 4. Cholestasis, hyperbilirubinemia. Etiology is secondary to liver disease, ETOH cirrhosis. Contin ue to monitor. Follow up with GI. 5. ETOH abuse and withdrawal. Continue benzodiazepines. 6. Systemic inflammatory response syndrome. Questionable infectious etiology versus ETOH hepatitis. Continue to monitor. Continue current antibiotics. We will follow the patient as needed. Dictated By: EMILY CARLSON DO NR/NTS Conf#: [id number] DID#: [id number] CC: RODDY CARMICHAEL MD; APRIL SALAZAR MD;*EndCC*
--- NOTE | 2018-07-05 11:17 | PN ---
Date/Time of Note Date/Time of Note DATE: 07/05/18 TIME: 11:05 Assessment/Plan VTE Prophylaxis Risk score (from Nsg)>0 risk: 1 SCD applied (from Nsg): Yes Pharmacological prophylaxis: other Lines/Catheters IV Catheter Type (from Nrsg): Saline Lock Urinary Cath still in place: No Assessment/Plan Assessment/Plan Alcoholic Hepatitis / Cirrhosis / Fatty Liver Alcohol withdrawal / Abuse Thickening of gallbladder on CT Pancreatitis -elevated amylase and lipase -abdominal pain resolved and patient tolerating diet. Last lipase check 3 days ago. Portal gastropathy on CT UTI Gram-negative bacteremia treated. Plan: Continue diabetic diet Monitor LFTs, stable, continued improvement in bilirubin. Transaminases being monitored. Not much improved. Recheck lipase (no need for daily checks). Continue supportive treatment of ETOH withdrawal and ETOH hepatitis. Continue steroid Discussed treatment of alcoholic hepatitis/fatty liver and once again reinforced alcohol cessation. Pt has support group and sponsor Future outpatient EGD for esophageal varices. Routine surveillance of cirr hotics. Subjective: Patient is awake and alert. Tolerating diabetic diet. Feels well but "hungry". "less shaky today". Exam PHYSICAL EXAMINATION: GENERAL: Well developed, + jaundice ,+ tremors , well nourished, alert & oriented x 3, in no acute distress SKIN: No lesions, no stigmata chronic liver disease, no evidence of bleeding diathesis LYMPHATIC: No palpable lymphadenopathy. HEAD: Normocephalic, atraumatic, no tenderness. EYES: Pupils equal reactive to light and accommodation, full extraocular movements, sclera-icteric, no discharge. EARS/NOSE AND THROAT: Ears normal, nose normal, oropharynx normal, oral membranes well hydrated without lesions. NECK: Supple, no masses, thyroid normal, JVP within normal limits, carotids normal without bruits. CHEST: Inspection within normal limits. CARDIOVASCULAR: Heart: Regular rate and rhythm, no murmurs, gallops or rubs. Peripheral pulses present within normal limits, no cyanosis, clubbing or edemas. No pulsatile abdominal mass RESPIRATORY: Lungs clear to auscultation and percussion, no wheezing, no rubs GASTROINTESTINAL AND LIVER: Abdomen: Soft, no tenderness, non-distended, no hernias, no masses, no organomegaly, no ascites, no guarding, no rebound tenderness, normoactive bowel sounds. Rectal: Deferred. EXTREMITIES: No cyanosis, clubbing or edema. Result Diagram: 07/04/18 0448 07/05/18 0441 Results 24hrs Laboratory Tests Test 07/04/18 13:15 07/04/18 17:37 07/04/18 21:11 07/04/18 23:24 Bedside Glucose 238 H 281 H 306 H 127 Test 07/05/18 01:21 07/05/18 04:41 07/05/18 08:25 Bedside Glucose 95 112 Prothrombin Time 17.5 H Prothrombin Time 1.4 Ratio INR International 1.42 Normalized Ratio Sodium Level 141 Potassium Level 4.4 Chloride Level 104 Carbon Dioxide Level 28 Anion Gap 9 Blood Urea Nitrogen 18 Creatinine 1.19 Est Glomerular > 60 Filtrat Rate mL/min Glucose Level 103 # Calcium Level 9.0 Total Bilirubin 1.6 H Direct Bilirubin 0.00 # Indirect Bilirubin 1.6 H Aspartate Amino 131 H Transf (AST/SGOT) Alanine 119 H Aminotransferase (AL T/SGPT) Alkaline Phosphatase 205 H Total Protein 7.2 Albumin 3.0 L Globulin 4.20 H Albumin/Globulin 0.71 Ratio Exam/Review of Systems Exam Vitals Vital Signs Date Temp Pulse Resp B/P (MAP) Pulse Ox O2 O2 Flow FiO2 Time Delivery Rate 07/05/18 98.4 88 18 92/60 (71) 98 07:35 07/04/18 Room Air 14:00 Intake and Output 07/04/18 07/04/18 07/05/18 1515:00 23:00 07:00 IntakeIntake Total 460 ml 460 ml 800 ml BalanceBalance 460 ml 460 ml 800 ml Results Results 24hrs Laboratory Tests Test 07/04/18 13:15 07/04/18 17:37 07/04/18 21:11 07/04/18 23:24 Bedside Glucose 238 H 281 H 306 H 127 Test 07/05/18 01:21 07/05/18 04:41 07/05/18 08:25 Bedside Glucose 95 112 Prothrombin Time 17.5 H Prothrombin Time 1.4 Ratio INR International 1.42 Normalized Ratio Sodium Level 141 Potassium Level 4.4 Chloride Level 104 Carbon Dioxide Level 28 Anion Gap 9 Blood Urea Nitrogen 18 Creatinine 1.19 Est Glomerular > 60 Filtrat Rate mL/min Glucose Level 103 # Calcium Level 9.0 Total Bilirubin 1.6 H Direct Bilirubin 0.00 # Indirect Bilirubin 1.6 H Aspartate Amino 131 H Transf (AST/SGOT) Alanine 119 H Aminotransferase (AL T/SGPT) Alkaline Phosphatase 205 H Total Protein 7.2 Albumin 3.0 L Globulin 4.20 H Albumin/Globulin 0.71 Ratio Medications Medication Current Medications IV Flush (NS 3 ml) 3 ml PER PROTOCOL IV ; Start 06/30/18 at 21:00 Ondansetron HCl (Zofran Inj) 4 mg Q6H PRN IV NAUSEA/VOMITING Last administered on 06/30/18at 22:54; Admin Dose 4 MG; Start 06/30/18 at 21:00 Acetaminophen (Tylenol Tab) 650 mg Q6H PRN PO .PAIN 1-3 OR TEMP Last administered on 07/01/18at 02:40; Admin Dose 650 MG; Start 06/30/18 at 21:00 Piperacillin Sod/ Tazobactam Sod 100 ml @ 200 mls/hr Q6 IVPB Last administered on 07/05/18at 05:37; Admin Dose 200 MLS/HR; Start 07/01/18 at 00:00 Lactulose (Enulose) 20 gm Q8 PO Last administered on 07/05/18at 05:37; Admin Dose 20 GM; Start 07/01/18 at 00:00 Miscellaneous Information 1 ea NOTE XX ; Start 06/30/18 at 23:45 Glucose (Glutose) 15 gm Q15M PRN PO DECREASED GLUCOSE; Start 06/30/18 at 23:45 Glucose (Glutose) 22.5 gm Q15M PRN PO DECREASED GLUCOSE; Start 06/30/18 at 23:45 Dextrose (D50w Syringe) 25 ml Q15M PRN IV DECREASED GLUCOSE; Start 06/30/18 at 23:45 Dextrose (D50w Syringe) 50 ml Q15M PRN IV DECREASED GLUCOSE; Start 06/30/18 at 23:45 Glucagon (Glucagen) 1 mg Q15M PRN IM DECREASED GLUCOSE; Start 06/30/18 at 23:45 Glucose (Glutose) 15 gm Q15M PRN BUCCAL DECREASED GLUCOSE; Start 06/30/18 at 23:45 Multivitamins Therapeutic (Theragran) 1 tab DAILY PO Last administered on at 08:26; Admin Dose 1 TAB; Start 07/01/18 at 09:00 Folic Acid (Folic Acid) 1 mg DAILY PO Last administered on 07/05/18 08:26; Admin Dose 1 MG; Start 07/01/18 at 09:00 Thiamine HCl (Vitamin B1) 200 mg BID PO Last administered on 07/05/18 08:26; Admin Dose 200 MG; Start 07/01/18 at 21:00 Insulin Aspart (Novolog Insulin Pen) NOVOLOG *MILD* ALGORITHM WITH MEALS BEDTIME SC Last administered on 07/04/18 21:35; Admin Dose 4 UNIT; Start 07/01/18 at 21:00 Prednisolone (Prelone) 40 mg DAILY PO Last administered on 07/05/18 08:27; Admin Dose 40 MG; Start 07/03/18 at 09:00 Insulin Aspart (Novolog Insulin Pen) 4 unit WITH MEALS SC Last administered on 07/05/18 08:29; Admin Dose 4 UNIT; Start 07/03/18 at 18:00 Haloperidol (Haldol) 2 mg Q8H PRN IM agitation; Start 07/04/18 at 11:00 Insulin Glargine (Lantus) 12 units DAILY@0800 SC Last administered on 07/05/18 08:28; Admin Dose 12 UNITS; Start 07/05/18 at 08:00 JHON DAVIS Jul 05, 2018 11:16
[2018-07-05] MEDS: CEFTRIAXONE 1 GM/50 ML (PMX) 50 ML IVPB SCH (12:30)
[2018-07-05 13:48] VITALS: BP 101/62; PULSE 80; RESP 18
--- NOTE | 2018-07-05 14:25 | PN ---
Date/Time of Note Date/Time of Note DATE: 07/05/18 TIME: 14:14 Assessment/Plan VTE Prophylaxis Risk score (from Ns)>0 risk: 1 SCD applied (from Ns): Yes Pharmacological prophylaxis: NA/contraindicated Pharm contraindication: low risk/ambulating Lines/Catheters [facility] Saline Lock Urinary Cath still in place: No Assessment/Plan Hospital Course 38 yo male with alcohol use d/o presents with alcoholic hepatitis and sepsis Alcohol withdrawal syndrome: - dc librium taper. no need for further benzos - Thiamine, folate Alcoholic hepatitis: -DC steroids, internal medicine guidelines have shown no improvement with steroid use for alcohol hepatitis - Lactulose - Trend LFTs - MRCP without gall stones -Alcohol cessation advised Sepsis with E. coli bacteremia from UTI: -DC Zosyn, continue course with Rocephin Hyponatremia: - Resolved Hyperglycemia: - likely from steroids, stress. A1C not very high -Decrease basal, DC mealtime Alcohol use d/o: -Patient and family counseled extensively on cessation Homelessness -general foundry worker consultation DC planning: Follow-up on social media sr strategy manager recommendations Result Diagram: 07/04/18 0448 07/05/18 1141 Results 24hrs Laboratory Tests Test 07/04/18 17:37 07/04/18 21:11 07/04/18 23:24 07/05/18 01:21 Bedside Glucose 281 H 306 H 127 95 Test 07/05/18 04:41 07/05/18 08:25 07/05/18 11:41 07/05/18 12:35 Prothrombin Time 17.5 H 16.7 H Prothrombin Time 1.4 1.3 Ratio INR International 1.42 1.34 Normalized Ratio Sodium Level 141 139 Potassium Level 4.4 3.5 Chloride Level 104 105 Carbon Dioxide 28 25 Level Anion Gap 9 9 Blood Urea 18 19 Nitrogen Creatinine 1.19 1.22 Est Glomerular > 60 > 60 Filtrat Rate mL/min Glucose Level 103 # 257 #H Calcium Level 9.0 9.3 Total Bilirubin 1.6 H 1.7 H Direct Bilirubin 0.00 # 0.10 Indirect Bilirubin 1.6 H 1.6 H Aspartate Amino 131 H 132 H Transf (AST/SGOT) Alanine 119 H 121 H Aminotransferase ( ALT/SGPT) Alkaline 205 H 209 H Phosphatase Total Protein 7.2 7.3 Albumin 3.0 L 2.8 L Globulin 4.20 H 4.50 H Albumin/Globulin 0.71 0.62 Ratio Bedside Glucose 112 229 H Lipase 439 H Test 07/05/18 13:00 Lab Scanned Report REFERENCE LAB Subjective 24 Hr Interval Summary Constitutional: no complaints Exam/Review of Systems Exam Vitals Vital Signs Date Temp Pulse Resp B/P (MAP) Pulse Ox O2 O2 Flow FiO2 Time Delivery Rate 07/05/18 98.7 80 18 101/62 99 13:48 (75) 07/04/18 Room Air 14:00 Intake and Output 07/04/18 07/04/18 07/05/18 1515:00 23:00 07:00 IntakeIntake Total 460 ml 460 ml 800 ml BalanceBalance 460 ml 460 ml 800 ml Constitutional: alert, oriented Respiratory: clear to auscultation Cardiovascular: regular rate and rhythm Gastrointestinal: soft; No distended Musculoskeletal: nl extremities to inspection Results Results 24hrs Laboratory Tests Test 07/04/18 17:37 07/04/18 21:11 07/04/18 23:24 07/05/18 01:21 Bedside Glucose 281 H 306 H 127 95 Test 07/05/18 04:41 07/05/18 08:25 07/05/18 11:41 07/05/18 12:35 Prothrombin Time 17.5 H 16.7 H Prothrombin Time 1.4 1.3 Ratio INR International 1.42 1.34 Normalized Ratio Sodium Level 141 139 Potassium Level 4.4 3.5 Chloride Level 104 105 Carbon Dioxide 28 25 Level Anion Gap 9 9 Blood Urea 18 19 Nitrogen Creatinine 1.19 1.22 Est Glomerular > 60 > 60 Filtrat Rate mL/min Glucose Level 103 # 257 #H Calcium Level 9.0 9.3 Total Bilirubin 1.6 H 1.7 H Direct Bilirubin 0.00 # 0.10 Indirect Bilirubin 1.6 H 1.6 H Aspartate Amino 131 H 132 H Transf (AST/SGOT) Alanine 119 H 121 H Aminotransferase ( ALT/SGPT) Alkaline 205 H 209 H Phosphatase Total Protein 7.2 7.3 Albumin 3.0 L 2.8 L Globulin 4.20 H 4.50 H Albumin/Globulin 0.71 0.62 Ratio Bedside Glucose 112 229 H Lipase 439 H Test 07/05/18 13:00 Lab Scanned Report REFERENCE LAB Medications Medication Current Medications IV Flush (NS 3 ml) 3 ml PER PROTOCOL IV ; Start 06/30/18 at 21:00 Ondansetron HCl (Zofran Inj) 4 mg Q6H PRN IV NAUSEA/VOMITING Last administered on 06/30/18 22:54; Admin Dose 4 MG; Start 06/30/18 at 21:00 Acetaminophen (Tylenol Tab) 650 mg Q6H PRN PO .PAIN 1-3 OR TEMP Last admini stered on 07/01/18at 02:40; Admin Dose 650 MG; Start 06/30/18 at 21:00 Lactulose (Enulose) 20 gm Q8 PO Last administered on 07/05/18 13:37; Admin Dose 20 GM; Start 07/01/18 at 00:00 Miscellaneous Information 1 ea NOTE XX ; Start 06/30/18 at 23:45 Glucose (Glutose) 15 gm Q15M PRN PO DECREASED GLUCOSE; Start 06/30/18 at 23:45 Glucose (Glutose) 22.5 gm Q15M PRN PO DECREASED GLUCOSE; Start 06/30/18 at 23:45 Dextrose (D50w Syringe) 25 ml Q15M PRN IV DECREASED GLUCOSE; Start 06/30/18 at 23:45 Dextrose (D50w Syringe) 50 ml Q15M PRN IV DECREASED GLUCOSE; Start 06/30/18 at 23:45 Glucagon (Glucagen) 1 mg Q15M PRN IM DECREASED GLUCOSE; Start 06/30/18 at 23:45 Glucose (Glutose) 15 gm Q15M PRN BUCCAL DECREASED GLUCOSE; Start 06/30/18 at 23:45 Multivitamins Therapeutic (Theragran) 1 tab DAILY PO Last administered on 07/05/18 08:26; Admin Dose 1 TAB; Start 07/01/18 at 09:00 Folic Acid (Folic Acid) 1 mg DAILY PO Last administered on 07/05/18 08:26; Admin Dose 1 MG; Start 07/01/18 at 09:00 Thiamine HCl (Vitamin B1) 200 mg BID PO Last administered on 07/05/18 08:26; Admin Dose 200 MG; Start 07/01/18 at 21:00 Insulin Aspart (Novolog Insulin Pen) NOVOLOG *MILD* ALGORITHM WITH MEALS BEDTI ME SC Last administered on 07/05/18 12:38; Admin Dose 3 UNIT; Start 07/01/18 at 21:00 Prednisolone (Prelone) 40 mg DAILY PO Last administered on 07/05/18 08:27; Admin Dose 40 MG; Start 07/03/18 at 09:00 Insulin Aspart (Novolog Insulin Pen) 4 unit WITH MEALS SC Last administered on 07/05/18at 12:38; Admin Dose 4 UNIT; Start 07/03/18 at 18:00 Haloperidol (Haldol) 2 mg Q8H PRN IM agitation; Start 07/04/18 at 11:00 Insulin Glargine (Lantus) 12 units DAILY@0800 SC Last administered on 07/05/18 08:28; Admin Dose 12 UNITS; Start 07/05/18 at 08:00 Ceftriaxone Sodium 50 ml @ 100 mls/hr Q24H IVPB Last administered on 07/05/18 12:30; Admin Dose 100 MLS/HR; Start 07/05/18 at 11:00 NURYS RIOS Jul 05, 2018 14:25
[2018-07-05] MEDS ORDERED: LORAZEPAM 2 MG INJ IV ONE (20:00)
[2018-07-05] MEDS ORDERED: HALOPERIDOL 5 MG INJ IM ONE (20:00)
[2018-07-05 20:55] VITALS: BP 110/64; PULSE 79; RESP 18
[2018-07-06 01:58] VITALS: BP 95/60; PULSE 72; RESP 18
[2018-07-06] MEDS: LACTULOSE 30ML CUP PO SCH ×3 (06:35→21:12)
[2018-07-06] MEDS: INSULIN ASPART [NOVOLOG] 3 ML PEN SC SCH ×4 (07:58→21:00)
[2018-07-06 08:05] VITALS: BP 101/67; PULSE 74; RESP 16
[2018-07-06] MEDS: THIAMINE 100 MG TAB PO SCH ×2 (08:13→21:12)
[2018-07-06] MEDS: MULTIVITAMINS THERAPEUTIC TAB PO SCH (08:13)
[2018-07-06] MEDS: FOLIC ACID 1 MG TAB PO SCH (08:13)
[2018-07-06] MEDS: INSULIN GLARGINE [LANTus] (100 UNITS/ML) SYG SC SCH (10:20)
[2018-07-06] MEDS: CEFTRIAXONE 1 GM/50 ML (PMX) 50 ML IVPB SCH (11:24)
--- NOTE | 2018-07-06 13:17 | PN ---
Date/Time of Note Date/Time of Note DATE: 07/06/18 TIME: 13:02 Assessment/Plan VTE Prophylaxis Risk score (from Nsg)>0 risk: 1 SCD applied (from Nsg): Yes Pharmacological prophylaxis: other (scds) Lines/Catheters IV Catheter Type (from Nrsg): Saline Lock Urinary Cath still in place: No Assessment/Plan Hospital Course Assessment/Plan Alcoholic Hepatitis / Cirrhosis / Fatty Liver Alcohol withdrawal / Abuse Thickening of gallbladder on CT Pancreatitis -elevated amylase and lipase -abdominal pain resolved and patient tolerating diet. Last lipase check 3 days ago. Portal gastropathy on CT UTI Gram-negative bacteremia treated. Plan: Continue diet Monitor LFTs- no significant change Continue supportive treatment of ETOH withdrawal and ETOH hepatitis. Steroids have been d/c'd Discussed treatment of alcoholic hepatitis/fatty liver and once again reinforced alcohol cessation. Future outpatient EGD for esophageal varices. Routine surveillance of cirrhotics. SW consulted looking into placement for rehab- currently pending Patient seen in collaboration with Dr. Perkins Subjective: No over night events, patient states he is feeling better. No c/o n/v or abd pain, discussed LFTs- elevated yet stable. PHYSICAL EXAMINATION: GENERAL: Well developed, + jaundice ,+ tremors- improved , well nourished, alert & oriented x 3, in no acute distress SKIN: No lesions. LYMPHATIC: No palpable lymphadenopathy. HEAD: Normocephalic, atraumatic, no tenderness. EYES: Pupils equal reactive to light, no discharge. EARS/NOSE AND THROAT: Ears normal, nose normal. NECK: Supple, no masses, thyroid normal CHEST: Inspection within normal limits. CARDIOVASCULAR: Heart: Regular rate and rhythm, RESPIRATORY: Lungs clear to auscultation. GASTROINTESTINAL AND LIVER: Abdomen: Soft, no tenderness, non-distended, no guarding, no rebound tenderness, normoactive bowel sounds. Rectal: Deferred. EXTREMITIES: No cyanosis, clubbing or edema. Result Diagram: 07/04/18 0448 07/05/18 1141 Results 24hrs Laboratory Tests Test 07/05/18 17:36 07/05/18 21:20 07/06/18 01:35 07/06/18 07:51 Bedside Glucose 272 H 234 H 134 106 Test 07/06/18 12:51 Bedside Glucose 227 H Exam/Review of Systems Exam Vitals Vital Signs Date Temp Pulse Resp B/P (MAP) Pulse Ox O2 O2 Flow FiO2 Time Delivery Rate 07/06/18 98.6 74 16 101/67 99 08:05 (78) 07/04/18 Room Air 14:00 Intake and Output 07/05/18 07/05/18 07/06/18 1515:00 23:00 07:00 IntakeIntake Total 890 ml 360 ml 240 ml BalanceBalance 890 ml 360 ml 240 ml Results Results 24hrs Laboratory Tests Test 07/05/18 17:36 07/05/18 21:20 07/06/18 01:35 07/06/18 07:51 Bedside Glucose 272 H 234 H 134 106 Test 07/06/18 12:51 Bedside Glucose 227 H Medications Medication Current Medications IV Flush (NS 3 ml) 3 ml PER PROTOCOL IV ; Start 06/30/18 at 21:00 Ondansetron HCl (Zofran Inj) 4 mg Q6H PRN IV NAUSEA/VOMITING Last administered on 06/30/18at 22:54; Admin Dose 4 MG; Start 06/30/18 at 21:00 Acetaminophen (Tylenol Tab) 650 mg Q6H PRN PO .PAIN 1-3 OR TEMP Last administered on 07/01/18at 02:40; Admin Dose 650 MG; Start 06/30/18 at 21:00 Lactulose (Enulose) 20 gm Q8 PO Last administered on 07/06/18at 06:35; Admin Do se 20 GM; Start 07/01/18 at 00:00 Miscellaneous Information 1 ea NOTE XX ; Start 06/30/18 at 23:45 Glucose (Glutose) 15 gm Q15M PRN PO DECREASED GLUCOSE; Start 06/30/18 at 23:45 Glucose (Glutose) 22.5 gm Q15M PRN PO DECREASED GLUCOSE; Start 06/30/18 at 23:45 Dextrose (D50w Syringe) 25 ml Q15M PRN IV DECREASED GLUCOSE; Start 06/30/18 at 23:45 Dextrose (D50w Syringe) 50 ml Q15M PRN IV DECREASED GLUCOSE; Start 06/30/18 at 23:45 Glucagon (Glucagen) 1 mg Q15M PRN IM DECREASED GLUCOSE; Start 06/30/18 at 23:45 Glucose (Glutose) 15 gm Q15M PRN BUCCAL DECREASED GLUCOSE; Start 06/30/18 at 23:45 Multivitamins Therapeutic (Theragran) 1 tab DAILY PO Last administered on 07/06/18 08:13; Admin Dose 1 TAB; Start 07/01/18 at 09:00 Folic Acid (Folic Acid) 1 mg DAILY PO Last administered on 07/06/18 08:13; Admin Dose 1 MG; Start 07/01/18 at 09:00 Thiamine HCl (Vitamin B1) 200 mg BID PO Last administered on 07/06/18 08:13; Admin Dose 200 MG; Start 07/01/18 at 21:00 Insulin Aspart (Novolog Insulin Pen) NOVOLOG *MILD* ALGORITHM WITH MEALS BEDTIME SC Last administered on 07/06/18 12:53; Admin Dose 3 UNIT; Start 07/01/18 at 21:00 Haloperidol (Haldol) 2 mg Q8H PRN IM agitation Last administered on 07/05/18 19:39; Admin Dose 2 MG; Start 07/04/18 at 11:00 Ceftriaxone Sodium 50 ml @ 100 mls/hr Q24H IVPB Last administered on 07/06/18 11:24; Admin Dose 100 MLS/HR; Start 07/05/18 at 11:00 Insulin Glargine (Lantus) 8 units DAILY@0800 SC Last administered on 07/06/18 10:20; Admin Dose 8 UNITS; Start 07/06/18 at 08:00 MIGUEL FARRIS Jul 06, 2018 13:17
[2018-07-06 14:45] VITALS: BP 104/59; PULSE 78; RESP 17
--- NOTE | 2018-07-06 15:04 | PN ---
Date/Time of Note Date/Time of Note DATE: 07/06/18 TIME: 15:04 Assessment/Plan VTE Prophylaxis Risk score (from Nsg)>0 risk: 1 SCD applied (from Nsg): Yes Pharmacological prophylaxis: NA/contraindicated Pharm contraindication: low risk/ambulating Lines/Catheters IV Catheter Type (from Nrsg): Saline Lock Urinary Cath still in place: No Assessment/Plan Hospital Course 38 yo male with alcohol use d/o presents with alcoholic hepatitis and sepsis Alcohol withdrawal syndrome: - dc librium taper. no need for further benzos - Thiamine, folate Alcoholic hepatitis: -DC steroids, internal medicine guidelines have shown no improvement with steroid use for alcohol hepatitis - Lactulose - Trend LFTs - MRCP without gall stones -Alcohol cessation advised Sepsis with E. coli bacteremia from UTI: -DC Zosyn, continue course with Rocephin Hyponatremia: - Resolved Hyperglycemia: - likely from steroids, stress. A1C not very high -Decrease basal, DC mealtime Alcohol use d/o: -Patient and family counseled extensively on cessation Homelessness -material requirements worker consultation DC planning: Follow-up on social services analyst recommendations Result Diagram: 07/04/18 0448 07/05/18 1141 Results 24hrs Laboratory Tests Test 07/05/18 17:36 07/05/18 21:20 07/06/18 01:35 07/06/18 07:51 Bedside Glucose 272 H 234 H 134 106 Test 07/06/18 12:51 Bedside Glucose 227 H Subjective 24 Hr Interval Summary Constitutional: no complaints Exam/Review of Systems Exam Vitals Vital Signs Date Temp Pulse Resp B/P (MAP) Pulse Ox O2 O2 Flow FiO2 Time Delivery Rate 07/06/18 98.8 78 17 104/59 98 Room Air 14:45 (74) Intake and Output 07/05/18 07/05/18 07/06/18 1414:59 22:59 06:59 IntakeIntake Total 890 ml 360 ml 240 ml BalanceBalance 890 ml 360 ml 240 ml Constitutional: alert, oriented Respiratory: clear to auscultation Cardiovascular: regular rate and rhythm Gastrointestinal: soft; No distended Musculoskeletal: nl extremities to inspection Results Results 24hrs Laboratory Tests Test 07/05/18 17:36 07/05/18 21:20 07/06/18 01:35 07/06/18 07:51 Bedside Glucose 272 H 234 H 134 106 Test 07/06/18 12:51 Bedside Glucose 227 H Medications Medication Current Medications IV Flush (NS 3 ml) 3 ml PER PROTOCOL IV ; Start 06/30/18 at 21:00 Ondansetron HCl (Zofran Inj) 4 mg Q6H PRN IV NAUSEA/VOMITING Last administered on 06/30/18at 22:54; Admin Dose 4 MG; Start 06/30/18 at 21:00 Acetaminophen (Tylenol Tab) 650 mg Q6H PRN PO .PAIN 1-3 OR TEMP Last administered on 07/01/18at 02:40; Admin Dose 650 MG; Start 06/30/18 at 21:00 Lactulose (Enulose) 20 gm Q8 PO Last administered on 07/06/18at 13:38; Admin Dose 20 GM; Start 07/01/18 at 00:00 Miscellaneous Information 1 ea NOTE XX ; Start 06/30/18 at 23:45 Glucose (Glutose) 15 gm Q15M PRN PO DECREASED GLUCOSE; Start 06/30/18 at 23:45 Glucose (Glutose) 22.5 gm Q15M PRN PO DECREASED GLUCOSE; Start 06/30/18 at 23:45 Dextrose (D50w Syringe) 25 ml Q15M PRN IV DECREASED GLUCOSE; Start 06/30/18 at 23:45 Dextrose (D50w Syringe) 50 ml Q15M PRN IV DECREASED GLUCOSE; Start 06/30/18 at 23:45 Glucagon (Glucagen) 1 mg Q15M PRN IM DECREASED GLUCOSE; Start 06/30/18 at 23:45 Glucose (Glutose) 15 gm Q15M PRN BUCCAL DECREASED GLUCOSE; Start 06/30/18 at 23:45 Multivitamins Therapeutic (Theragran) 1 tab DAILY PO Last administered on 07/06/18 08:13; Admin Dose 1 TAB; Start 07/01/18 at 09:00 Folic Acid (Folic Acid) 1 mg DAILY PO Last administered on 07/06/18 08:13; Admin Dose 1 MG; Start 07/01/18 at 09:00 Thiamine HCl (Vitamin B1) 200 mg BID PO Last administered on 07/06/18 08:13; Admin Dose 200 MG; Start 07/01/18 at 21:00 Insulin Aspart (Novolog Insulin Pen) NOVOLOG *MILD* ALGORITHM WITH MEALS BEDTIME SC Last administered on 07/06/18 12:53; Admin Dose 3 UNIT; Start 07/01/18 at 21:00 Haloperidol (Haldol) 2 mg Q8H PRN IM agitation Last administered on 07/05/18 19:39; Admin Dose 2 MG; Start 07/04/18 at 11:00 Ceftriaxone Sodium 50 ml @ 100 mls/hr Q24H IVPB Last administered on 07/06/18 11:24; Admin Dose 100 MLS/HR; Start 07/05/18 at 11:00 Insulin Glargine (Lantus) 8 units DAILY@0800 SC Last administered on 07/06/18 10:20; Admin Dose 8 UNITS; Start 07/06/18 at 08:00 NURYS RIOS Jul 06, 2018 15:04
[2018-07-06 20:00] VITALS: BP 101/64; PULSE 88; RESP 18
[2018-07-07 02:00] VITALS: BP 98/61; PULSE 76; RESP 18
[2018-07-07] MEDS: LACTULOSE 30ML CUP PO SCH ×2 (06:17→13:50)
[2018-07-07 08:02] VITALS: BP 109/71; PULSE 103; RESP 18
[2018-07-07] MEDS: MULTIVITAMINS THERAPEUTIC TAB PO SCH (08:11)
[2018-07-07] MEDS: FOLIC ACID 1 MG TAB PO SCH (08:11)
[2018-07-07] MEDS: THIAMINE 100 MG TAB PO SCH (08:12)
[2018-07-07] MEDS: INSULIN ASPART [NOVOLOG] 3 ML PEN SC SCH ×2 (08:14→12:52)
[2018-07-07] MEDS: INSULIN GLARGINE [LANTus] (100 UNITS/ML) SYG SC SCH (08:15)
[2018-07-07] MEDS: CEFTRIAXONE 1 GM/50 ML (PMX) 50 ML IVPB SCH (11:39)
[2018-07-07 14:21] VITALS: BP 105/69; PULSE 55; RESP 18
[2018-07-07] MEDS ORDERED: POTASSIUM CHLORIDE (SR) 20 MEQ TAB PO STA (14:47)
--- NOTE | 2018-07-07 14:49 | PDOCDIS ---
Discharge Instructions CONDITION [id number] Patient Condition: [id number] Good HOME CARE INSTRUCTIONS: [id number] Diet Instructions: [id number] Regular ACTIVITY: [id number] Activity Restrictions: [id number] No Restrictions FOLLOW UP/APPOINTMENTS Follow-up Plan FOLLOW UP WITH YOUR PRIMARY CARE PHYSICIAN IN 1-2 WEEKS NURYS RIOS Jul 07, 2018 14:49
--- NOTE | 2018-07-07 15:00 | DS ---
Date/Time of Note Date/Time of Note DATE: 07/07/18 TIME: 14:56 Discharge Summary Admission/Discharge Info Admit Date/Time Jun 30, 2018 at 20:51 Discharge Date/Time July 07, 2018 Discharge Diagnosis Alcohol withdrawal syndrome: -Status post Librium taper. no need for further benzos -Status post thiamine, folate Alcoholic hepatitis: Improved -DC steroids, internal medicine guidelines have shown no improvement with steroid use for alcohol hepatitis -MRCP without gall stones -Alcohol cessation advised Sepsis with E. coli bacteremia from UTI: -Status post antibiotic course Hyponatremia: - Resolved Hyperglycemia: Resolved - likely from steroids, stress. A1C not very high Alcohol use d/o: -Patient and family counseled extensively on cessation Homelessness -clay worker consultation appreciated, patient would like to return home with friend Patient Condition: Good Hospital Course Patient is a 38 yo male with alcohol use d/o presents with alcoholic hepatitis and sepsis secondary to E. coli bacteremia from UTI. Patient was treated for an antibiotic course, patient was given Librium and multivitamins for alcohol withdrawal as he did have mild tremors but patient had no evidence of significant withdrawals. Patient sepsis did resolve and hepatitis did improve, alcohol cessation was strongly advised with family presents. Patient was seen by older adult social work specialist for homelessness but did not want to go to facility and preferred to go to friend's home. Patient was stable for DC with no further evidence of alcohol withdrawal, patient was able to ambulate, on the day of discharge patient vitals, labs and physical exam are stable/ Home Meds Reported Medications Cholecalciferol* (Vitamin D*) 400 Unit Tablet, 800 UNIT PO DAILY, TAB 06/24/17 Discontinued Scripts Lorazepam* (Lorazepam*) 1 Mg Tablet, 1 MG PO QHS for ins, #12 TAB Prov:LIZ MCMAHON DO 06/24/17 Follow-up Plan FOLLOW UP WITH YOUR PRIMARY CARE PHYSICIAN IN 1-2 WEEKS Primary Care Provider Care Physician No Primary Time spent on discharge: > 30 minutes NURYS RIOS Jul 07, 2018 15:00
== END 2018-07-07 15:35 | disposition home or self-care (01) | DRG 871 ==
LOC: E/R 16:43 → 2NE 20:51
PROVIDERS: ADMIT Family Medicine; ATTEND Internal Medicine
DX: A41.51 Sepsis due to Escherichia coli [E. coli] (principal); K85.90 Acute pancreatitis without necrosis or infection, unspecified; N39.0 Urinary tract infection, site not specified; E87.1 Hypo-osmolality and hyponatremia; F10.239 Alcohol dependence with withdrawal, unspecified; K76.6 Portal hypertension; N17.9 Acute kidney failure, unspecified; K70.10 Alcoholic hepatitis without ascites; R73.9 Hyperglycemia, unspecified; Z59.0 Homelessness; K31.89 Other diseases of stomach and duodenum; K76.0 Fatty (change of) liver, not elsewhere classified; N40.0 Benign prostatic hyperplasia without lower urinary tract symptoms; E87.6 Hypokalemia; K70.30 Alcoholic cirrhosis of liver without ascites; F17.200 Nicotine dependence, unspecified, uncomplicated; F12.90 Cannabis use, unspecified, uncomplicated
CPT/HCPCS: 36415; 71045; 74177; 74181; 76705; 80048; 80053; 80061; 80076; 80307; 81001; 81003; 82043; 82140; 82150; 82306; 82962; 83036; 83605; 83690; 83735; 83935; 84100; 84155; 84300; 84443; 85025; 85610; 85730; 86704; 86706; 86708; 86709; 86803; 87086; 87340; 97110; 97116; 97161; 97530; J0696; J1630; J1815; J2060; J2405; J2543; J2920; J3480; J7030; J7070; J7510; Q9967

== ENCOUNTER 2018-08-25 16:28 | Inpatient (IN) | payer MEDICAID ==
[~2018-08-25] VITALS: Ht 315 cm; Wt 61.0 kg
[~2018-08-25 16:28] MED LIST changes: -LORA1TAB PO
--- NOTE | 2018-08-25 16:53 | ERD ---
ER Documentation Chief Complaint Chief Complaint mid abdominal pain; vomitting x 3 days ; hx of cirrhosis ROS All systems reviewed and are negative except as per history of present illness. Medications Home Meds Reported Medications Cholecalciferol* (Vitamin D*) 400 Unit Tablet, 800 UNIT PO DAILY, TAB 06/24/17 Allergies Allergies: Coded Allergies: No Known Allergy (Unverified , 06/30/18) PMhx/Soc History of Surgery: Yes (Left hand surgery 2017) Anesthesia Reaction: No Hx 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 Disorder: No Hx Respiratory Disorders: No Hx Cardiac Disorders: No Hx Psychiatric Problems: No Hx Miscellaneous Medical Probl: Yes (chronic daily alchohol use.) Hx Alcohol Use: Yes Hx Substance Use: Yes Hx Tobacco Use: No Physical Exam Vitals Vital Signs Date Temp Pulse Resp B/P (MAP) Pulse Ox O2 O2 Flow FiO2 Time Delivery Rate 08/25/18 98.2 130 18 120/66 97 16:33 (84) Physical Exam Const: No acute distress Head: Atraumatic Eyes: Normal Conjunctiva ENT: Normal External Ears, Nose and Mouth. Neck: Full range of motion. No meningismus. Resp: Clear to auscultation bilaterally Cardio: Regular rate and rhythm, no murmurs Abd: Soft, non tender, non distended. Normal bowel sounds Skin: No petechiae or rashes Back: No midline or flank tenderness Ext: No cyanosis, or edema Neur: Awake and alert Psych: Normal Mood and Affect ANSELMO WU MD Aug 25, 2018 16:53
[2018-08-25] MEDS ORDERED: SODIUM CHLORIDE 0.9% 1L BAG IV* STA (17:51)
[2018-08-25] MEDS ORDERED: PIPER-TAZO 3.375 GM IV (PMX) 100 ML IVPB ONE (18:00)
[2018-08-25] MEDS ORDERED: DEXTROSE 50% 50 ML SYRINGE IV PRN ×2 (20:00)
[2018-08-25] MEDS ORDERED: morphine 2 MG INJ IV PRN (20:00)
[2018-08-25] MEDS ORDERED: INSULIN LISPRO 100 UNIT/ML VIAL SC ONE (20:00)
[2018-08-25] MEDS ORDERED: IPRATROPIUM (NEB) 0.5 MG/2.5 ML AMP NEB PRN (20:00)
[2018-08-25] MEDS ORDERED: VANCOMYCIN 1 GM (PMX) 250 ML IVPB ONE (20:00)
[2018-08-25] MEDS ORDERED: POTASSIUM CHLORIDE 50 ML IVPB ONE (20:00)
[2018-08-25] MEDS ORDERED: SOD CHLORIDE 0.9% 1,000 ML IV ONE (20:00)
[2018-08-25] MEDS ORDERED: ONDANSETRON 4 MG INJ IV PRN (20:00)
[2018-08-25] MEDS ORDERED: ALBUTEROL 0.083% (NEB) 2.5 MG/3 ML AMP NEB PRN (20:00)
[2018-08-25] MEDS ORDERED: INSULIN REGULAR, HUMAN 100 UNIT in SOD CHLORIDE 0.9% 100 ML IV SCH ×2 (20:00)
[2018-08-25] MEDS: ACCU-CHEK XX SCH ×4 (20:00→23:47)
[2018-08-25] MEDS: INSULIN HUMAN REGULAR 100 UNIT in SOD CHLORIDE 0.9% 99 ML IV SCH ×2 (20:38→23:37)
[2018-08-25] MEDS: FAMOTIDINE 20 MG INJ IV SCH (20:48)
[2018-08-25] MEDS ORDERED: FER325 PO (22:04)
[2018-08-25] MEDS ORDERED: LORA1TAB PO (22:04)
[2018-08-25 23:04] VITALS: PULSE 117
[2018-08-25 23:08] VITALS: BP 96/72; PULSE 116; RESP 25
[2018-08-26] VITALS (26 sets, daily range): BP systolic 104–140; BP diastolic 54–98; PULSE 50–133; RESP 21–35; Ht 315 cm; Wt 61.0 kg
[2018-08-26] MEDS ORDERED: MAGNESIUM SULFATE 2 GM/50 ML 50 ML IVPB ONE
[2018-08-26] MEDS ORDERED: POTASSIUM CHLORIDE 50 ML IVPB SCH ×2
[2018-08-26] MEDS: ACCU-CHEK XX SCH ×5 (00:08→04:04)
--- NOTE | 2018-08-26 00:13 | HP ---
Date/Time of Note Date/Time of Note DATE: 08/26/18 TIME: 00:13 Assessment/Plan VTE Prophylaxis SCD applied (from Nsg): Yes Pharmacological prophylaxis: NA/contraindicated Pharm contraindication: low risk/ambulating Lines/Catheters IV Catheter Type (from Nrsg): Saline Lock Assessment/Plan Hospital Course This is a 38-year-old male being admitted to the ICU floor for: #1 Acute encephalopathy: Toxic metabolic versus other. Patient appears to be slightly confused. Likely multifactorial secondary to underlying sepsis, possible hepatic encephalopathy, severe hyperglycemia. Treat the after mentioned causes, will check ammonia level. Monitor closely. He does not have any focal neurological deficits. Consider CT brain if indicated #2 Septic shock: Patient presented with a lactate and level of 5. Blood pressures though at the current time are within normal values. Broad-spectrum antibiotics of vancomycin and Zosyn for underlying pneumonia. Trend lactic acid levels. IV fluid hydration. await culture results. #3 community-acquired pneumonia: Broad-spectrum antibiotics at the current time of vancomycin and Zosyn, will await culture results, to narrow antibiotics #4 Hyponatremia with pseudohyponatremia: When corrected for glucose sodium is 131. Patient does appear to be dehydrated. Will provide fluid resuscitation followed by maintenance fluids. Monitor sodium levels. #5 severe hyperglycemia: Patient does not appear to be in DKA. Patient's previous hemoglobin A1c was 6.3. We will check a repeat hemoglobin A1c. Insulin GTT has been initiated. Monitor sugar levels. Hydrate the patient with normal saline. #6 Metabolic acidosis with lactic acidosis: Multifactorial secondary to underlying septic shock, pneumonia, liver disease. Continue fluid management and antibiotics and monitor closely. Trend lactic acid levels. #7 Acute kidney injury: Multifactorial secondary to septic shock, severe hyperglycemia, dehydration. Previous baseline creatinine was normal values. Will hydrate the patient. Monitor acute renal function. Avoid NSAIDs, renally dose antibiotics. Further renal work-up if kidney function does not improve. #8 severe hypokalemia: Secondary to gastrointestinal losses, poor appetite. P.o. and IV replacement. Will need to be aggressive with this in the setting of patient being on insulin drip. Will initiate potassium replacement protocol. #9 history of alcoholic hepatitis with likely early cirrhosis: Previous imaging studies to show signs of possible early cirrhosis. Patient does appear to have ascites. Will order ultrasound paracentesis for therapeutic tap. Will need to encourage cessation. Will check ammonia level. PRN Ativan for any signs of withdrawal. Folic acid multivitamin, thiamine #10 suspect urinary tract infection: Patient does report dysuria, urinalysis shows trace leuk esterase. Currently on broad-spectrum antibodies, await urine culture results DVT GI prophylaxis: SCDs, H2 nicole Further treatment strategy will be implemented as per the clinical course Greater than 40 minutes of critical care time was spent on the care management this patient. Result Diagram: 08/25/18 1751 08/25/18 4598 Results 24hrs Laboratory Tests Test 08/25/18 17:46 08/25/18 17:51 08/25/18 18:04 08/25/18 18:42 POC Venous 5.0 *H Lactate White Blood Count 26.3 #H Red Blood Count 3.66 L Hemoglobin 11.3 L Hematocrit 31.8 L Mean Corpuscular 86.9 Volume Mean Corpuscular 30.9 Hemoglobin Mean Corpuscular 35.5 Hemoglobin Concen t Red Cell 13.5 Distribution Width Platelet Count 127 #L Mean Platelet 12.6 #H Volume Immature 2.400 H Granulocytes % Neutrophils % Segmented 89 H Neutrophils % (Manual) Lymphocytes % Lymphocytes % 4 L (Manual) Monocytes % Monocytes % 7 (Manual) Eosinophils % Basophils % Nucleated Red 0.0 Blood Cells % Immature 0.640 H Granulocytes # Neutrophils # Lymphocytes 1.0 (Manual) Lymphocytes # Monocytes # Monocytes # 1.8 H (Manual) Eosinophils # Basophils # Nucleated Red Blood Cells # Pathologist YES Review (Hematolog y) Poikilocytosis 2+ Anisocytosis 1+ Macrocytosis 1+ Prothrombin Time 17.7 H Prothrombin Time 1.4 Ratio INR International 1.45 Normalized Ratio Activated 37.1 H Partial Thrombopl ast Time Sodium Level 118 *L Potassium Level 2.9 *L Chloride Level 77 L Carbon Dioxide 20 L Level Anion Gap 21 H Blood Urea 41 H Nitrogen Creatinine 2.22 H Est Glomerular 33 L Filtrat Rate mL/min Glucose Level 950 *H Calcium Level 9.5 Total Bilirubin 1.4 H Direct Bilirubin 0.30 H Indirect 1.1 Bilirubin Aspartate Amino 22 Transf (AST/SGOT) Alanine 20 Aminotransferase (ALT/SGPT) Alkaline 196 H Phosphatase Ammonia 19 Troponin I < 0.012 Total Protein 7.0 Albumin 2.7 L Globulin 4.30 H Albumin/Globulin 0.62 Ratio Ethyl Alcohol < 10.0 H Level Urine Color YELLOW Urine Clarity CLEAR Urine pH 5.0 Urine Specific 1.016 [place] Urine Ketones NEGATIVE Urine Nitrite NEGATIVE Urine Bilirubin NEGATIVE Urine NEGATIVE Urobilinogen Urine Leukocyte TRACE A Esterase Urine Microscopic 1 RBC Urine Microscopic 27 H WBC Urine Bacteria FEW A Urine Mucus FEW A Urine Hemoglobin 1+ H Urine Glucose 3+ H Urine Total NEGATIVE Protein Urine Opiates Negative Screen Urine Negative Barbiturates Urine Negative Amphetamines Screen Urine Negative Benzodiazepines Screen Urine Cocaine Negative Screen Urine Negative Cannabinoids Blood Gas Blood arterial Specimen Source Arterial Blood 08/25/2018 7:04:5 Date Drawn 4 PM Arterial Blood pH 7.421 (Temp corrected) Arterial Blood 33.0 L pCO2 (Temp correct) Arterial Blood 84.7 pO2 (Temp corrected) Arterial Blood 21.0 L HCO3 Arterial Blood -2.9 Base Excess Arterial Blood 95.5 Oxygen Saturation Miguel Test N/A Arterial Blood Right Brachial Gas Puncture Site Arterial 0.3 Blood Carboxyhemo globin Arterial Blood 0.4 Methemoglobin Blood Gas A-a O2 25.5 H Differential Oxyhemoglobin 94.8 Percent Blood Gas 37.0 Temperature Blood Gas ROOM AIR Modality FiO2 21.0 Blood Gas Notified Whom Blood Gas 08/25/2018 7:14:2 Notified Time 4 PM Test 08/25/18 19:30 08/25/18 20:08 08/25/18 21:30 08/25/18 22:28 Lactic Acid Level 5.3 *H Bedside Glucose > 595 *H > 595 *H > 595 *H Test 08/25/18 22:48 08/25/18 23:32 Sodium Level 124 L Potassium Level 2.4 *L Chloride Level 92 #L Carbon Dioxide 22 Level Anion Gap 10 # Blood Urea 37 H Nitrogen Creatinine 1.76 H Est Glomerular 44 L Filtrat Rate mL/min Glucose Level 613 #*H Lactic Acid Level 4.1 *H Calcium Level 9.1 Magnesium Level 2.3 Total Bilirubin 1.2 Direct Bilirubin 0.30 H Indirect 0.9 Bilirubin Aspartate Amino 22 Transf (AST/SGOT) Alanine 20 Aminotransferase (ALT/SGPT) Alkaline 148 H Phosphatase Total Protein 5.9 #L Albumin 2.2 L Globulin 3.70 H Albumin/Globulin 0.59 Ratio Bedside Glucose > 595 *H HPI/ROS Admit Date/Time Admit Date/Time Aug 25, 2018 at 19:52 Hx of Present Illness Chief complaint: Abdominal pain, vomiting for the last 3 days Patient is a poor historian, he also does appear to be lethargic, the history was obtained from him as well as from the girlfriend at the bedside. This is a 38-year-old male with a past medical history of heavy alcohol use and early cirrhosis who presents to the emergency department complaining of abdominal pain and vomiting x3 days. Patient reports that he has been vomiting nonbilious for the last 3 days. He did have some abdominal pain as well. He does report painful urination. He does have a history of heavy alcohol use. He also smokes marijuana. He denies any chest pain or shortness of breath. His girlfriend does report that he appears to be confused. Allergies: NKDA Medications: See RADHA LOVING Const: As per HPI Eyes : No pain discharge or redness or change in visual acuity ENT: No pain, sore throat, congestion, congestion, dysphagia or discharge Respiratory: No shortness of breath, cough, sputum, wheezing, or pleuritic pain Cardiovascular: No chest pain, palpitation, PND, or edema GI : As per HPI Genitourinary: No dysuria, hematuria, flank pain , discharge or CVA tenderness Musculoskeletal: No joint pain, back pain, neck pain, restricted range of motion in neck or joints Skin: No rash, bruising or hives Neuro: As per HPI Endocrine: No polyuria, polydipsia, temperature intolerance Psych: No hallucination, depression, anxiety or suicidal ideation PMH/Family/Social Past Medical History Vitamin D def, alcoholic hepatitis, early cirrhosis Medications Current Medications Diagnostic Test (Pha) (Accu-Chek) 1 ea Q1H XX Last administered on 08/26/18at 00:08; Admin Dose 1 EA; Start 08/25/18 at 20:00 Insulin Human Regular 100 unit/ Sodium Chloride 100 ml @ 0 mls/hr PER PROTOCOL IV Last administered on 08/25/18at 23:37; Admin Dose 16 MLS/HR; Start 08/25/18 at 20:00 Miscellaneous Information (* Miscellaneous Pharmacy Order) Treatment of Hypoglycemia: 1.BG 51... Per protocol XX ; Start 08/25/18 at 20:00 Dextrose (D50w Syringe) 25 ml Q15M PRN IV .DECREASED GLUCOSE; Start 08/25/18 at 20:00 Dextrose (D50w Syringe) 50 ml Q15M PRN IV .DECREASED GLUCOSE; Start 08/25/18 at 20:00 Ondansetron HCl (Zofran Inj) 4 mg Q6H PRN IV NAUSEA AND/OR VOMITING; Start 08/25/18 at 20:00 Albuterol (Proventil 0.083% (Neb)) 2.5 mg Q2H RESP THERAPY PRN NEB SHORTNESS OF BREATH; Start 08/25/18 at 20:00 Ipratropium [place] (Atrovent 0.02% (Neb)) 0.5 mg Q2H RESP THERAPY PRN NEB SHORTNESS OF BREATH; Start 08/25/18 at 20:00 Acetaminophen (Tylenol Liquid) 650 mg Q6H PRN PO PAIN LEVEL 1-3 OR FEVER; Start 08/25/18 at 20:00 Morphine Sulfate (morphine) 1 mg Q4H PRN IV PAIN LEVEL 7-10; Start 08/25/18 at 20:00 Famotidine (Pepcid Iv) 20 mg DAILY IV Last administered on 08/25/18at 20:48; Admin Dose 20 MG; Start 08/25/18 at 21:00 Potassium Chloride 50 ml @ 25 mls/hr Q2H IVPB ; Start 08/26/18 at 00:00; Stop 08/26/18 at 05:59 Magnesium Sulfate 50 ml @ 25 mls/hr ONCE ONCE IVPB ; Start 08/26/18 at 00:00; Stop 08/26/18 at 01:59 Coded Allergies: No Known Allergy (Unverified , 08/25/18) Past Surgical History Left wrist/arm surgery Family History Significant Family History: cancer, diabetes Social History Alcohol Use: heavy Smoking Status: Never smoker Drug Use: none Exam/Review of Systems Vital Signs Vitals Vital Signs Date Temp Pulse Resp B/P (MAP) Pulse Ox O2 O2 Flow FiO2 Time Delivery Rate 08/25/18 117 23:04 08/25/18 98.1 18 118/80 97 Room Air 22:27 (93) Intake and Output 08/25/18 08/25/18 08/26/18 1515:00 23:00 07:00 OutputOutput Total 350 ml BalanceBalance -350 ml Exam Exam General: Currently lying in bed, he is lethargic but arousable. Noncombative.. HEENT: Atraumatic, normocephalic. The pupils are equal, round and reactive. Extraocular motor are intact, mucous membranes dry Neck: Supple with full range of motion. No rigidity or meningismus Chest: Nontender Lungs: Clear to auscultation bilaterally no crackles rales or wheezing Heart: Normal S1-S2, Regular rhythm and rate. No murmur, S3, or S4 Abdomen: Soft , nontender, mildly distended abdomen/ascites, bowel sounds are present. No guarding no rebound tenderness , No masses or organomegaly. No costovertebral temporal angle mass Extremities: Normal to inspection, no edema no cyanosis Neurologic: Lethargic but arousable. Does appear to be slightly confused speech is normal. Cranial nerves II through XII intact. No focal weakness. Psych: Noncombative, cooperative Additional Comments PROCEDURE: XR Chest. CLINICAL INDICATION: Possible Sepsis TECHNIQUE: Portable AP view of the chest was obtained. COMPARISON: None. FINDINGS: Mild patchy opacities in the left lung base possible tiny pleural effusions. No pneumothorax. Heart size is normal. No acute osseous abnormality. IMPRESSION: Mild patchy opacities in left lung base may represent atelectasis or pneumonia. Tiny pleural effusions. RPTAT:AAJJ Physician Shahnaz Date Time Electronically viewed and signed by Physician Shahnaz on 08/25/2018 18:54 RF/ CC: DELIO CARDOZA MD [id number] APRIL SALAZAR Aug 26, 2018 00:13
[2018-08-26] MEDS ORDERED: VANCOMYCIN IV PER PHARMACY XX SCH (00:30)
[2018-08-26] MEDS ORDERED: POTASSIUM CHLORIDE 100 ML IVPB SCH (00:30)
[2018-08-26] MEDS ORDERED: SOD CHLORIDE 0.9% 1,000 ML IV ONE (00:30)
--- NOTE | 2018-08-26 00:37 | ERD ---
ER Documentation Chief Complaint Chief Complaint mid abdominal pain; vomitting x 3 days ; hx of cirrhosis HPI The patient is a 38-year-old male, presenting to the ER because of diffuse abdominal pain with vomiting and painful urination for the last 3 days, denies hematemesis/hematochezia. Had similar symptoms previously, denies fever, chills, neck pain, chest pain, dyspnea, diarrhea complains of bilateral lower extremity swelling for the last couple days. He does not smoke, drinks socially, smokes marijuana Past Medical History: Cirrhosis Past surgical history: None ROS All systems reviewed and are negative except as per history of present illness. Medications Home Meds Reported Medications Ferrous Sulfate* (Ferrous Sulfate*) 325 Mg Tabec, 325 MG PO DAILY, TAB 08/25/18 Lorazepam* (Lorazepam*) 1 Mg Tablet, 1 MG PO Q12H PRN for ANXIETY for 15 Days, #30 08/25/18 Cholecalciferol* (Vitamin D*) 400 Unit Tablet, 800 UNIT PO DAILY, TAB 06/24/17 Allergies Allergies: Coded Allergies: No Known Allergy (Unverified , 08/25/18) PMhx/Soc History of Surgery: Yes (Left hand surgery 2018) Anesthesia Reaction: No Hx 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 Disorder: No Hx Respiratory Disorders: No Hx Cardiac Disorders: No Hx Psychiatric Problems: No Hx Miscellaneous Medical Probl: Yes (chronic daily alchohol use, liver failure.) Hx Alcohol Use: Yes (ETOH abuse) Hx Substance Use: Yes ('quit years ago') Hx Tobacco Use: No Smoking Status: Never smoker Physical Exam Vitals Vital Signs Date Temp Pulse Resp B/P (MAP) Pulse Ox O2 O2 Flow FiO2 Time Delivery Rate 08/25/18 109 16 116/80 97 Room Air 19:30 (92) 08/25/18 109 14 118/71 98 Room Air 18:15 (87) 08/25/18 114 22 121/78 99 Room Air 17:57 (92) 08/25/18 98.2 130 18 120/66 97 16:33 (84) Physical Exam Const: No acute distress. Head: Atraumatic. Eyes: Normal Conjunctiva. ENT: Normal External Ears, Nose and Mouth. Neck: Full range of motion. No meningismus. Resp: Clear to auscultation bilaterally. Cardio: Regular tachycardic. Abd: Soft, non distended, normal bowel sounds, vague and mild abdominal tenderness, no rigidity/rebound/CVA tenderness Skin: No petechiae or rashes. Back: No midline or flank tenderness. Ext: No cyanosis, mild bilateral leg edema, no calf tenderness Neur: Awake and alert. No focal deficit Psych: Normal Mood and Affect. Result Diagram: 08/25/18 1751 08/25/18 2248 Results 24 hrs Laboratory Tests Test 08/25/18 17:46 08/25/18 17:51 08/25/18 18:04 08/25/18 18:42 POC Venous 5.0 mmol/L Lactate White Blood 26.3 10^3/ul Count Red Blood Count 3.66 10^6/ul Hemoglobin 11.3 g/dl Hematocrit 31.8 % Mean 86.9 fl Corpuscular Volume Mean 30.9 pg Corpuscular Hemoglobin Mean 35.5 g/dl Corpuscular Hemoglobin Conc ent Red Cell 13.5 % Distribution Width Platelet Count 127 10^3/UL Mean Platelet 12.6 fl Volume Immature 2.400 % Granulocytes % Neutrophils % % Segmented 89 % Neutrophils % (Manual) Lymphocytes % % Lymphocytes % 4 % (Manual) Monocytes % % Monocytes % 7 % (Manual) Eosinophils % % Basophils % % Nucleated Red 0.0 /100WBC Blood Cells % Immature 0.640 10^3/ul Granulocytes # Neutrophils # 10^3/ul Lymphocytes 1.0 10^3/ul (Manual) Lymphocytes # 10^3/ul Monocytes # 10^3/ul Monocytes # 1.8 10^3/ul (Manual) Eosinophils # 10^3/ul Basophils # 10^3/ul Nucleated Red 10^3/ul Blood Cells # Pathologist YES Review (Hematol ogy) Poikilocytosis 2+ Anisocytosis 1+ Macrocytosis 1+ Prothrombin 17.7 Sec Time Prothrombin 1.4 Time Ratio INR 1.45 International Normalized Rati o Activated 37.1 Sec Partial Thrombo plast Time Sodium Level 118 mmol/L Potassium Level 2.9 mmol/L Chloride Level 77 mmol/L Carbon Dioxide 20 mmol/L Level Anion Gap 21 Blood Urea 41 mg/dl Nitrogen Creatinine 2.22 mg/dl Est Glomerular 33 mL/min Filtrat Rate mL/min Glucose Level 950 mg/dl Calcium Level 9.5 mg/dl Total Bilirubin 1.4 mg/dl Direct 0.30 mg/dl Bilirubin Indirect 1.1 mg/dl Bilirubin Aspartate Amino 22 IU/L Transf (AST/SGO T) Alanine 20 IU/L Aminotransferas e (ALT/SGPT) Alkaline 196 IU/L Phosphatase Ammonia 19 umol/l Troponin I < 0.012 ng/ml Total Protein 7.0 g/dl Albumin 2.7 g/dl Globulin 4.30 g/dl Albumin/Globuli 0.62 n Ratio Ethyl Alcohol < 10.0 mg/dl Level Urine Color YELLOW Urine Clarity CLEAR Urine pH 5.0 Urine Specific 1.016 [place] Urine Ketones NEGATIVE mg/dL Urine Nitrite NEGATIVE mg/dL Urine Bilirubin NEGATIVE mg/dL Urine NEGATIVE mg/dL Urobilinogen Urine Leukocyte TRACE Gerri/ul Esterase Urine 1 /HPF Microscopic RBC Urine 27 /HPF Microscopic WBC Urine Bacteria FEW /HPF Urine Mucus FEW /HPF Urine 1+ mg/dL Hemoglobin Urine Glucose 3+ mg/dL Urine Total NEGATIVE mg/dl Protein Urine Opiates Negative Screen Urine Negative Barbiturates Urine Negative Amphetamines Screen Urine Negative Benzodiazepines Screen Urine Cocaine Negative Screen Urine Negative Cannabinoids Blood Gas Blood arterial Specimen Source Arterial Blood 08/25/2018 7:04: Date Drawn 54 PM Arterial Blood 7.421 pH (Temp corrected ) Arterial Blood 33.0 mmhg pCO2 (Temp correct) Arterial Blood 84.7 mmHG pO2 (Temp corrected ) Arterial Blood 21.0 mmol/L HCO3 Arterial Blood -2.9 mmol/L Base Excess Arterial Blood 95.5 mmHG Oxygen Saturati on Miguel Test N/A Arterial Blood Right Brachial Gas Puncture Site Arterial 0.3 % Blood Carboxyhe moglobin Arterial Blood 0.4 % Methemoglobin Blood Gas A-a 25.5 mmHg O2 Differential Oxyhemoglobin 94.8 % Percent Blood Gas 37.0 C Temperature Blood Gas ROOM AIR Modality FiO2 21.0 % Blood Gas Notified Whom Blood Gas 08/25/2018 7:14: Notified Time 24 PM Test 08/25/18 19:30 Lactic Acid 5.3 mmol/L Level Current Medications Medications Dose Sig/Shaila Start Time Status Last (Trade) Ordered Route PRN Stop Time Admin Dose Reason Admin Sodium 1,800 ml BOLUS OVER 2 08/25/18 DC 08/25/18 Chloride HOURS STAT 17:51 18:13 (NS) IV* 08/25/18 17:53 Piperacillin 100 ml @ ONCE ONCE 08/25/18 DC 08/25/18 Sod/ 200 mls/hr IVPB 18:00 18:13 Tazobactam 08/25/18 18:29 Sod Procedures/MDM [place] [id number] Radiology Main Line: [phone] DIAGNOSTIC IMAGING REPORT Patient: DELIO CALDERON : 1980 Age: 38 Sex: M MR #: [id number] DOS: 08/25/18 1730 Ordering MD: DELIO CARDOZA MD Location: E/R Room/Bed: PROCEDURE: XR Chest. CLINICAL INDICATION: Possible Sepsis TECHNIQUE: Portable AP view of the chest was obtained. COMPARISON: None. FINDINGS: Mild patchy opacities in the left lung base possible tiny pleural effusions. No pneumothorax. Heart size is normal. No acute osseous abnormality. IMPRESSION: Mild patchy opacities in left lung base may represent atelectasis or pneumonia. Tiny pleural effusions. RPTAT:AAJJ Physician Shahnaz Date Time Electronically viewed and signed by Physician Shahnaz on 08/25/2018 18:54 RF/ CC: DELIO CARDOZA MD [id number] EKG: Read by emergency physician Rate/Rhythm: Sinus Tach 114 beats/min QRS, ST, T-waves: No ST elevation, RWA, inferior and lateral T abnormality Impression: Abnormal EKG MEDICAL MAKING DECISION: The patient is a 38-year-old male, presenting with acute septic shock, acute pneumonia, acute hyponatremia, acute kidney injury, acute hypokalemia, acute hyperglycemia. He was treated with normal saline 30 mm/kg IV, Zosyn IV, vancomycin IV for acute septic shock, [place]ham catheter for acute kidney injury, potassium chloride 10 mEq IV for acute hypokalemia, insulin drip per protocol for acute hyperglycemia The differential diagnoses considered include but are not limited to hepatorenal syndrome, pneumonia, cystitis, acute kidney injury, new onset diabetes, HHS, DKA MDM: Patient's infectious symptoms have not stabilized and the patient is at risk of rapid decompensation. The patient will be admitted for careful hydration, antibiotic therapy, and infectious source control. SEVERE SEPSIS CRITERIA: Infectious source: pna End organ damage indicated by: [Lactate > 2.0 mmol/L SEPSIS MANAGEMENT Time of recognition of severe sepsis: 5:50p 3 HOUR BUNDLE Blood cultures x 2 before broad-spectrum antibiotics: [Yes] 30 ml/kg NS bolus [Completed] Initial lactate []5 Repeat lactate Pending SEPTIC SHOCK ASSESSMENT: [Y] lactic acid > 4.0 [No] Persistent hypotension (SBP < 90 or 40 mmHg drop, MAP < 65) despite 30 mL/kg IV fluid bolus VOLUME REASSESSMENT FOR SEPTIC SHOCK: Reevaluation Time: [] Temp []98.6, BP []116/80, HR []109, RR[]16, Pox []97% Heart [Regular tachy & rhythm] Lungs [No crackles] Skin [Warm & dry] Cap Refill [Less than 2 seconds] Peripheral pulses [Radially present] PERSISTENT HYPOTENSION TREATMENT: Comfort care [No] Central line [Not Required] Vasopressor started [Not required] I considered further perfusion assessment with CVP measurement, SCVO2, bedside ultrasound volume assessment, passive leg raise, trial of further fluid bolus. And proceeded with [30 ml/kg fluid bolus of NSS, broad spectrum antibiotics, and admission.] CRITICAL CARE Critical care time [35] minutes Emergent fluid management while maintaining close respiratory support. Provision of immediate and broad-spectrum antibiotic therapy. Simultaneous assessment for possible sources in order to direct targeted therapy. Consideration for invasive and chemical support to prevent cardiopulmonary collapse. Critical care time is independent of procedures performed. Departure Diagnosis: Primary Impression: Septic shock Additional Impressions: PNA (pneumonia) Hyponatremia TORIBIO (acute kidney injury) Thrombocytopenia Anemia Hypokalemia Hyperglycemia Condition: Critical Comments I discussed the findings with the patient. I discussed the patient with Dr Dumont at 7:50p , who was made aware of the lab, the treatment, the patient condition. The patient is admitted to ICU Disclaimer: Inadvertent spelling and grammatical errors are likely due to EHR/dictation software use and do not reflect on the overall quality of patient care. Also, please note that the electronic time recorded on this note does not necessarily reflect the actual time of the patient encounter. DELIO CARDOZA MD Aug 26, 2018 00:37
[2018-08-26] MEDS ORDERED: POTASSIUM CHLORIDE 30 MEQ in SOD CHLORIDE 0.45% 1,000 ML IV SCH (01:30)
[2018-08-26] MEDS: POTASSIUM CHLORIDE 100 ML IVPB SCH ×3 (02:18→06:28)
[2018-08-26] MEDS: INSULIN HUMAN REGULAR 100 UNIT in SOD CHLORIDE 0.9% 99 ML IV SCH (02:20)
[2018-08-26] MEDS ORDERED: POTASSIUM CHLORIDE (SR) 20 MEQ TAB PO ONE (04:25)
[2018-08-26] MEDS ORDERED: GLUCOSE GEL 15 GRAM TUBE PO PRN ×2 (05:00)
[2018-08-26] MEDS ORDERED: GLUCAGON 1 MG INJ IM PRN (05:00)
[2018-08-26] MEDS: INSULIN ASPART [NOVOLOG] 3 ML PEN SC SCH ×5 (05:00→21:14)
[2018-08-26] MEDS ORDERED: GLUCOSE GEL 15 GRAM TUBE BUCCAL PRN (05:00)
[2018-08-26] MEDS ORDERED: DEXTROSE 50% 50 ML SYRINGE IV PRN ×2 (05:00)
[2018-08-26] MEDS: POTASSIUM CHLORIDE 40 MEQ in SOD CHLORIDE 0.45% 1,000 ML IV SCH ×3 (05:37→21:11)
[2018-08-26] MEDS: PIPER-TAZO 3.375 GM IV (PMX) 100 ML IVPB SCH ×2 (05:38→12:25)
[2018-08-26] MEDS: LACTULOSE 30ML CUP PO SCH ×3 (05:38→18:00)
[2018-08-26] MEDS: MULTIVITAMINS THERAPEUTIC TAB PO SCH (09:58)
[2018-08-26] MEDS: THIAMINE 100 MG TAB PO SCH (09:58)
[2018-08-26] MEDS: FOLIC ACID 1 MG TAB PO SCH (09:58)
[2018-08-26] MEDS: POTASSIUM CHLORIDE (SR) 20 MEQ TAB PO SCH ×2 (09:59→21:11)
[2018-08-26] MEDS: FAMOTIDINE 20 MG INJ IV SCH (09:59)
--- NOTE | 2018-08-26 10:12 | PN ---
Date/Time of Note Date/Time of Note DATE: 08/26/18 TIME: 10:05 Assessment/Plan VTE Prophylaxis SCD applied (from Nsg): Yes Pharmacological prophylaxis: NA/contraindicated Pharm contraindication: low risk/ambulating Lines/Catheters IV Catheter Type (from Nrsg): Peripheral IV Urinary Cath still in place: No Assessment/Plan Assessment/Plan 38 yo man with newly diagnosed diabetes and history of alcoholic hepatitis presents with UTI in hyperosmolar hyperglycemic state. #Diabetes mellitus, newly diagnosed #Hyperglycemia - Last hospital admission HgbA1C<6.5 - Now 10 - Insulin sliding scale - When sepsis and lactic acidosis resolves, will consider switch to metformin f or discharge - Diabetic teaching. #Hyperkalemia - Aggressive replacement, frequent BMPs. # Severe sepsis: - Not requiring pressors - Probably due to UTI - Pending urine cultures - Empiric zosyn - Will discontinue vancomycin. # Suspected pneumonia - Unlikely. Mild atelectasis on CXR with no cough. - Zosyn for UTI #TORIBIO - Improving with hydration. # Acute encephalopathy: - Probably was due to metabolic state. - Now resolved. #Hyponatremia - Resolved. # history of alcoholic hepatitis with likely early cirrhosis: - Previous imaging studies to show signs of possible early cirrhosis. - No ascites DVT GI prophylaxis: SCDs, H2 nicole Greater than 40 minutes of critical care time was spent on the care management this patient. Result Diagram: 08/26/180 08/26/18 0440 Subjective 24 Hr Interval Summary Free Text/Dictation Patient awake, conversant. Nausea resolved. Now hungry. Mild lower abdominal pain with coughing. Exam/Review of Systems Exam Vitals Vital Signs Date Temp Pulse Resp B/P (MAP) Pulse Ox O2 O2 Flow FiO2 Time Delivery Rate 08/26/18 98.5 08:39 08/26/18 126 08:00 08/26/18 27 127/78 97 Room Air 06:00 (94) Intake and Output 08/25/18 08/25/18 08/26/18 1515:00 23:00 07:00 IntakeIntake Total 655 ml OutputOutput Total 350 ml 700 ml BalanceBalance -350 ml -45 ml Exam General: Well developed man sitting up in bed, awake, and alert. HEENT: Atraumatic, normocephalic. The pupils are equal, round and reactive. Extraocular motor are intact, mucous membranes moist Neck: Supple with full range of motion. No rigidity or meningismus Chest: Nontender Lungs: Clear to auscultation bilaterally no crackles rales or wheezing Heart: Normal S1-S2, Regular rhythm and rate. No murmur, S3, or S4 Abdomen: Soft , nontender but guarding throughout. No distension. Extremities: Normal to inspection, no edema no cyanosis Results Results 24hrs Laboratory Tests Test 08/25/18 17:46 08/25/18 17:51 08/25/18 18:04 08/25/18 18:42 POC Venous 5.0 *H Lactate White Blood Count 26.3 #H Red Blood Count 3.66 L Hemoglobin 11.3 L Hematocrit 31.8 L Mean Corpuscular 86.9 Volume Mean Corpuscular 30.9 Hemoglobin Mean Corpuscular 35.5 Hemoglobin Concen t Red Cell 13.5 Distribution Width Platelet Count 127 #L Mean Platelet 12.6 #H Volume Immature 2.400 H Granulocytes % Neutrophils % Segmented 89 H Neutrophils % (Manual) Lymphocytes % Lymphocytes % 4 L (Manual) Monocytes % Monocytes % 7 (Manual) Eosinophils % Basophils % Nucleated Red 0.0 Blood Cells % Immature 0.640 H Granulocytes # Neutrophils # Lymphocytes 1.0 (Manual) Lymphocytes # Monocytes # Monocytes # 1.8 H (Manual) Eosinophils # Basophils # Nucleated Red Blood Cells # Pathologist YES Review (Hematolog y) Poikilocytosis 2+ Anisocytosis 1+ Macrocytosis 1+ Prothrombin Time 17.7 H Prothrombin Time 1.4 Ratio INR International 1.45 Normalized Ratio Activated 37.1 H Partial Thrombopl ast Time Sodium Level 118 *L Potassium Level 2.9 *L Chloride Level 77 L Carbon Dioxide 20 L Level Anion Gap 21 H Blood Urea 41 H Nitrogen Creatinine 2.22 H Est Glomerular 33 L Filtrat Rate mL/min Glucose Level 950 *H Calcium Level 9.5 Total Bilirubin 1.4 H Direct Bilirubin 0.30 H Indirect 1.1 Bilirubin Aspartate Amino 22 Transf (AST/SGOT) Alanine 20 Aminotransferase (ALT/SGPT) Alkaline 196 H Phosphatase Ammonia 19 Troponin I < 0.012 Total Protein 7.0 Albumin 2.7 L Globulin 4.30 H Albumin/Globulin 0.62 Ratio Ethyl Alcohol < 10.0 H Level Urine Color YELLOW Urine Clarity CLEAR Urine pH 5.0 Urine Specific 1.016 [place] Urine Ketones NEGATIVE Urine Nitrite NEGATIVE Urine Bilirubin NEGATIVE Urine NEGATIVE Urobilinogen Urine Leukocyte TRACE A Esterase Urine Microscopic 1 RBC Urine Microscopic 27 H WBC Urine Bacteria FEW A Urine Mucus FEW A Urine Hemoglobin 1+ H Urine Glucose 3+ H Urine Total NEGATIVE Protein Urine Opiates Negative Screen Urine Negative Barbiturates Urine Negative Amphetamines Screen Urine Negative Benzodiazepines Screen Urine Cocaine Negative Screen Urine Negative Cannabinoids Blood Gas Blood arterial Specimen Source Arterial Blood 08/25/2018 7:04:5 Date Drawn 4 PM Arterial Blood pH 7.421 (Temp corrected) Arterial Blood 33.0 L pCO2 (Temp correct) Arterial Blood 84.7 pO2 (Temp corrected) Arterial Blood 21.0 L HCO3 Arterial Blood -2.9 Base Excess Arterial Blood 95.5 Oxygen Saturation Miguel Test N/A Arterial Blood Right Brachial Gas Puncture Site Arterial 0.3 Blood Carboxyhemo globin Arterial Blood 0.4 Methemoglobin Blood Gas A-a O2 25.5 H Differential Oxyhemoglobin 94.8 Percent Blood Gas 37.0 Temperature Blood Gas ROOM AIR Modality FiO2 21.0 Blood Gas Notified Whom Blood Gas 08/25/2018 7:14:2 Notified Time 4 PM Test 08/25/18 19:30 08/25/18 20:08 08/25/18 21:30 08/25/18 22:28 Lactic Acid Level 5.3 *H Bedside Glucose > 595 *H > 595 *H > 595 *H Test 08/25/18 22:48 08/25/18 23:32 08/26/18 00:09 08/26/18 00:50 Sodium Level 124 L 125 L Potassium Level 2.4 *L 2.1 *L Chloride Level 92 #L 94 L Carbon Dioxide 22 23 Level Anion Gap 10 # 8 Blood Urea 37 H 34 H Nitrogen Creatinine 1.76 H 1.82 H Est Glomerular 44 L 42 L Filtrat Rate mL/min Glucose Level 613 #*H 495 *H Lactic Acid Level 4.1 *H Calcium Level 9.1 9.5 Magnesium Level 2.3 Total Bilirubin 1.2 Direct Bilirubin 0.30 H Indirect 0.9 Bilirubin Aspartate Amino 22 Transf (AST/SGOT) Alanine 20 Aminotransferase (ALT/SGPT) Alkaline 148 H Phosphatase Total Protein 5.9 #L Albumin 2.2 L Globulin 3.70 H Albumin/Globulin 0.59 Ratio Bedside Glucose > 595 *H 430 *H Test 08/26/18 01:12 08/26/18 02:22 08/26/18 02:23 08/26/18 03:09 Bedside Glucose 452 *H 275 H 216 Sodium Level 132 L Potassium Level 2.0 *L Chloride Level 100 Carbon Dioxide 22 Level Anion Gap 10 Blood Urea 32 H Nitrogen Creatinine 1.55 H Est Glomerular 50 L Filtrat Rate mL/min Glucose Level 261 #H Calcium Level 9.3 Total Bilirubin 1.3 Direct Bilirubin 0.40 H Indirect 0.9 Bilirubin Aspartate Amino 23 Transf (AST/SGOT) Alanine 19 Aminotransferase (ALT/SGPT) Alkaline 145 H Phosphatase Ammonia 46 #H Total Protein 6.1 Albumin 2.2 L Globulin 3.90 H Albumin/Globulin 0.56 Ratio Ethyl Alcohol < 10.0 H Level Test 08/26/18 04:03 08/26/18 04:40 08/26/18 05:00 08/26/18 09:12 Bedside Glucose 142 120 White Blood Count 23.6 H Red Blood Count 3.17 L Hemoglobin 9.8 L Hematocrit 27.4 L Mean Corpuscular 86.4 Volume Mean Corpuscular 30.9 Hemoglobin Mean Corpuscular 35.8 Hemoglobin Concen t Red Cell 12.9 Distribution Width Platelet Count 112 L Mean Platelet 11.2 H Volume Immature 2.500 H Granulocytes % Neutrophils % 75.5 Segmented 73 Neutrophils % (Manual) Band Neutrophils 3 % (Manual) Lymphocytes % 7.3 L Lymphocytes % 13 L (Manual) Monocytes % 13.7 H Monocytes % 10 (Manual) Eosinophils % 0.3 Basophils % 0.7 Myelocytes % 1 H (Manual) Nucleated Red 0.0 Blood Cells % Immature 0.600 H Granulocytes # Neutrophils # 17.8 H Neutrophils # 17.4 H (Manual) Band Neutrophils 0.7 H # Lymphocytes 3.0 H (Manual) Lymphocytes # 1.7 Monocytes # 3.2 H Monocytes # 2.3 H (Manual) Eosinophils # 0.1 Basophils # 0.2 H Myelocytes # 0.2 H Nucleated Red 0.0 Blood Cells # Platelet Estimate DECREASED Giant Platelets 1 H Hypochromasia 1+ Prothrombin Time 18.5 H Prothrombin Time 1.4 Ratio INR International 1.53 Normalized Ratio Sodium Level 133 L 133 L Potassium Level 2.4 *L 3.5 Chloride Level 102 103 Carbon Dioxide 24 20 L Level Anion Gap 7 10 Blood Urea 31 H 28 H Nitrogen Creatinine 1.40 H 1.41 H Est Glomerular 57 L 56 L Filtrat Rate mL/min Glucose Level 134 # 223 H Hemoglobin A1c 10.2 H Calcium Level 9.3 9.0 Total Bilirubin 1.4 H Direct Bilirubin 0.40 H Indirect 1.0 Bilirubin Aspartate Amino 26 Transf (AST/SGOT) Alanine 19 Aminotransferase (ALT/SGPT) Alkaline 147 H Phosphatase Total Protein 6.1 Albumin 2.2 L Globulin 3.90 H Albumin/Globulin 0.56 Ratio Phosphorus Level 2.5 Magnesium Level 2.6 H Test 08/26/18 09:31 Bedside Glucose 229 H Medications Medication Current Medications Ondansetron HCl (Zofran Inj) 4 mg Q6H PRN IV NAUSEA AND/OR VOMITING; Start 03/03 at 20:00 Albuterol (Proventil 0.083% (Neb)) 2.5 mg Q2H RESP THERAPY PRN NEB SHORTNESS OF BREATH; Start 08/25/18 at 20:00 Ipratropium [place] (Atrovent 0.02% (Neb)) 0.5 mg Q2H RESP THERAPY PRN NEB SHORTNESS OF BREATH; Start 08/25/18 at 20:00 Acetaminophen (Tylenol Liquid) 650 mg Q6H PRN PO PAIN LEVEL 1-3 OR FEVER; Start 08/25/18 at 20:00 Morphine Sulfate (morphine) 1 mg Q4H PRN IV PAIN LEVEL 7-10; Start 08/25/18 at 20:00 Famotidine (Pepcid Iv) 20 mg DAILY IV Last administered on 08/25/18at 20:48; Admin Dose 20 MG; Start 08/25/18 at 21:00 Piperacillin Sod/ Tazobactam Sod 100 ml @ 200 mls/hr Q6 IVPB Last administered on 08/26/18at 05:38; Admin Dose 200 MLS/HR; Start 08/26/18 at 06:00 Lactulose (Enulose) 20 gm Q6 PO Last administered on 08/26/18at 05:38; Admin Dose 20 GM; Start 08/26/18 at 06:00 Potassium Chloride (Klor-Con 20) 40 meq BID PO ; Start 08/26/18 at 09:00; Stop 08/27/18 at 08:59 Potassium Chloride 50 ml @ 50 mls/hr K PROTOCOL PRN IVPB PENDING LAB VALUE; Start 08/26/18 at 04:30 Potassium Chloride 40 meq/ Sodium Chloride 1,020 ml @ 80 mls/hr [id number] IV Last administered on 08/26/18at 05:37; Admin Dose 80 MLS/HR; Start 08/26/18 at 05:00 Miscellaneous Information 1 ea NOTE XX ; Start 08/26/18 at 05:00 Glucose (Glutose) 15 gm Q15M PRN PO DECREASED GLUCOSE; Start 08/26/18 at 05:00 Glucose (Glutose) 22.5 gm Q15M PRN PO DECREASED GLUCOSE; Start 08/26/18 at 05:00 Dextrose (D50w Syringe) 25 ml Q15M PRN IV DECREASED GLUCOSE; Start 08/26/18 at 05:00 Dextrose (D50w Syringe) 50 ml Q15M PRN IV DECREASED GLUCOSE; Start 08/26/18 at 05:00 Glucagon (Glucagen) 1 mg Q15M PRN IM DECREASED GLUCOSE; Start 08/26/18 at 05:00 Glucose (Glutose) 15 gm Q15M PRN BUCCAL DECREASED GLUCOSE; Start 08/26/18 at 05:00 Folic Acid (Folic Acid) 1 mg DAILY PO ; Start 08/26/18 at 09:00 Multivitamins Therapeutic (Theragran) 1 tab DAILY PO ; Start 08/26/18 at 09:00 Thiamine HCl (Vitamin B1) 100 mg DAILY PO ; Start 08/26/18 at 09:00 Insulin Aspart (Novolog Insulin Pen) NOVOLOG *MODERATE* ALGORITHM WITH MEALS BEDTIME SC ; Start 08/26/18 at 11:30; Status UNJONN SEO MD Aug 26, 2018 10:12
[2018-08-26] MEDS: POTASSIUM CHLORIDE 50 ML IVPB PRN ×2 (16:01→17:23)
[2018-08-26] MEDS: metroNIDAZOLE 500 MG TAB PO SCH ×2 (16:01→21:11)
--- NOTE | 2018-08-26 16:19 | CONS ---
DATE OF ADMISSION: 08/25/2018 DATE OF CONSULTATION: 08/26/2018 TYPE OF CONSULTATION: Nephrology. REASON FOR CONSULTATION: Acute kidney injury, hyponatremia. PHYSICIAN REQUESTING CONSULT: Craig Salazar MD HISTORY OF PRESENT ILLNESS: This is a 38-year-old male with a past medical history of EtOH cirrhosis , who previously went to [facility] with complaints of lethargy, weakness, abdomina l pain, nausea, vomiting. The patient is a poor historian. Upon arrival, the patient states he has been having ongoing abdominal pain which has progressively gotten worse with nausea and vomiting. Th e patient also admits to smoking marijuana and alcohol use. Upon arrival to the emergency room, the patient's glucose levels were markedly elevated greater than 600 and the patient has sodium level of 124, potassium 2.4. The patient was started on IV fluids and admitted to intensive care unit and was placed on insulin and DKA protocol. In terms of the patient's renal history, the patient previously was [facility] with acute kidney injury, hyponatremia which previously resolved. The patient on this admiss ion had a creatinine of 1.76 mg/dL, which has slowly improved with IV hydration. The patient's initi al glucose also was 119 mEq mg/dL improved after correction of hypoglycemia. There has been no repor ts of hemoptysis, hematemesis or hematochezia. PAST MEDICAL HISTORY: As stated above, history of cirrhosis, history of diabetes. PAST SURGICAL HISTORY: None. ALLERGIES: NO KNOWN DRUG ALLERGIES. FAMILY HISTORY: No family history of kidney disease. SOCIAL HISTORY: Positive alcohol or drug use. MEDICATIONS: Have been reviewed. REVIEW OF SYSTEMS: A 14-point review of systems conducted. Pertinent positives stated in HPI, other medrano negative. PHYSICAL EXAMINATION: VITAL SIGNS: Blood pressure is 125/84, respiration 27, pulse 123, temperature 99.3. HEENT: Head is normocephalic. NECK: Supple. HEART: Regular rate. LUNGS: Show diminished breath sounds at the base. ABDOMEN: Soft, nontender to palpation without rebound or guarding. EXTREMITIES: Negative for clubbing, cyanosis. No edema. DERMATOLOGIC: No rash. MUSCULOSKELETAL: No joint effusion. NEUROLOGIC: No focal deficits. LABORATORY DATA: Have been reviewed. IMAGING STUDIES: Reviewed. ASSESSMENT AND PLAN: This is a 38-year-old male who presents with: 1. Nonoliguric acute kidney injury with previously baseline creatinine of 1.1 to 1.2 mg/dL. Etiolog y of acute kidney injury is likely secondary to hemodynamics, volume depletion. The patient's renal function appears to be improving with IV hydration. At this point, we would continue current treatme nt plan. Continue IV hydration. Continue supportive care and renally dose all meds. Please note a possible component of sepsis and acute kidney injury may be a contributing factor to acute kidney inj ury. Continue current antibiotic regimen. Please note, we will repeat a UA with microanalysis, urin e electrolytes. Monitor closely. 2. Acute hyponatremia. Etiology is likely secondary to hyperglycemia, hyperkalemia. The patient's sodium levels have improved with improvement in glycemic control with correction of underlying hyperk alemia. Continue to monitor. 3. Metabolic acidosis secondary to acute kidney injury. Continue to monitor. 4. Anemia. Monitor hemoglobin and hematocrit levels. 5. Mineral bone disorder. Monitor calcium and phosphorus level. 6. Diabetes. Continue current insulin regimen. 7. Hypokalemia. Continue to monitor and replete. 8. Severe sepsis secondary to pneumonia. Continue current antibiotic regimen. 9. History of EtOH abuse. Continue to monitor closely. Thank you, Dr. Salazar, for this interesting consult. It will be a pleasure to follow the patient wi th you throughout the hospital course. Dictated By: EMILY CARLSON DO NR/NTS Conf#: [id number] DID#: [id number] CC: CRAIG SALAZAR MD; LISS BLACKBURN; OJNN SEAY MD;*[facility]*
[2018-08-26] MEDS: CIPROFLOXACIN 500 MG TAB PO SCH (19:56)
[2018-08-26] MEDS ORDERED: VANCOMYCIN 1 GM 250 ML IVPB SCH (20:00)
[2018-08-27] VITALS (17 sets, daily range): BP systolic 87–125; BP diastolic 51–90; PULSE 78–140; RESP 18–37
[2018-08-27] MEDS: ACETAMINOPHEN 650MG/20.3ML CUP PO PRN ×2 (00:01→21:52)
[2018-08-27] MEDS ORDERED: ACCU-CHEK XX SCH (02:00)
[2018-08-27] MEDS: metroNIDAZOLE 500 MG TAB PO SCH (05:09)
[2018-08-27] MEDS: CIPROFLOXACIN 500 MG TAB PO SCH (05:09)
[2018-08-27] MEDS: LACTULOSE 30ML CUP PO SCH ×5 (05:10→23:23)
[2018-08-27] MEDS: INSULIN ASPART [NOVOLOG] 3 ML PEN SC SCH ×4 (07:47→21:06)
[2018-08-27] MEDS: MULTIVITAMINS THERAPEUTIC TAB PO SCH (08:52)
[2018-08-27] MEDS: THIAMINE 100 MG TAB PO SCH (08:52)
[2018-08-27] MEDS: FAMOTIDINE 20 MG TAB PO SCH (08:52)
[2018-08-27] MEDS: FOLIC ACID 1 MG TAB PO SCH (08:52)
--- NOTE | 2018-08-27 09:15 | PN ---
DATE: 08/27/2018 SUBJECTIVE: The patient is stable, no events overnight. The patient was transferred from intensive care unit to telemetry. OBJECTIVE: VITAL SIGNS: Blood pressure is 121/78, pulse 113, respirations 18, temperature 98.0. HEENT: Head is normocephalic. NECK: Supple. HEART: Regular rate. LUNGS: Show diminished breath sounds at the base. ABDOMEN: Soft, nontender to palpation. No rebound or guarding. EXTREMITIES: Negative for clubbing, cyanosis, no edema. DERMATOLOGIC: No rashes. MUSCULOSKELETAL: No joint effusion. NEUROLOGIC: No change in exam. MEDICATIONS: Reviewed. LABORATORY DATA: Reviewed. IMAGING STUDIES: Reviewed. ASSESSMENT AND PLAN: 1. Nonoliguric acute kidney injury with previous baseline creatinine of 1.1 to 1.2 mg/dL. Etiology of acute kidney injury is secondary to hemodynamics, volume depletion. Renal function has improved w ith IV hydration. At this point, continue current treatment plan, supportive care, renally dose all medications. We will deescalate IV fluids. 2. Acute hypernatremia, etiology secondary to hyperglycemia, hypokalemia. The patient's sodium leve ls have improved. Continue current treatment plan. Continue good glycemic control, monitor closely and limit free water intake. 3. Metabolic acidosis secondary to acute kidney injury, improving. 4. Anemia. Monitor hemoglobin and hematocrit levels. 5. Mineral bone disorder. Monitor calcium and phosphorus levels. 6. Diabetes. Continue current insulin regimen. 7. Hypokalemia. Continue to monitor and replete as needed. 8. Severe sepsis secondary to pneumonia. Continue current antibiotic regimen. 9. History of ETOH abuse. Dictated By: EMILY CARLSON DO NR/NTS Conf#: [id number] DID#: [id number] CC: JONN SEAY MD; LISS BLACKBURN; APRIL SALAZAR MD;*End*
--- NOTE | 2018-08-27 11:44 | PN ---
Date/Time of Note Date/Time of Note DATE: 08/27/18 TIME: 11:40 Assessment/Plan VTE Prophylaxis Risk score (from Ns)>0 risk: 5 SCD applied (from Ns): Yes Pharmacological prophylaxis: NA/contraindicated Pharm contraindication: low risk/ambulating Lines/Catheters IV [facility]from [facility] Peripheral IV Urinary Cath still in place: No Assessment/Plan Assessment/Plan 38 yo man with newly diagnosed diabetes and history of alcoholic hepatitis pre sents with UTI in hyperosmolar hyperglycemic state. #Diabetes mellitus, newly diagnosed #Hyperglycemia - Last hospital admission HgbA1C<6.5, now 10. - Insulin sliding scale and glargine qhs. - When sepsis and lactic acidosis resolves, will consider switch to metformin for discharge - Diabetic teaching. # Severe sepsis: - Not requiring pressors - Probably due to UTI - Pending blood cultures - Empiric zosyn # Suspected pneumonia - Unlikely. Mild atelectasis on CXR with no cough. - Zosyn for UTI #TORIBIO - Improving with hydration. # Acute encephalopathy: - Probably was due to metabolic state. - Resolving #Hyponatremia - Resolved. #Hypokalemia - Resolved # history of alcoholic hepatitis with likely early cirrhosis: - Previous imaging studies to show signs of possible early cirrhosis. - No ascites DVT GI prophylaxis: SCDs, H2 nicole Result Diagram: 08/27/18 0506 08/27/18 0506 Subjective 24 Hr Interval Summary Free Text/Dictation No acute overnight events. Patient doing well. Tolerating diet, ambulating. Still tachy to 130s, sinus on telemetry. Exam/Review of Systems Exam Vitals Vital Signs Date Temp Pulse Resp B/P (MAP) Pulse Ox O2 O2 Flow FiO2 Time Delivery Rate 08/27/18 98.2 110 18 119/77 97 Room Air 11:03 (91) Intake and Output 08/26/18 08/26/18 08/27/18 1515:00 23:00 07:00 IntakeIntake Total 2040 ml 880 ml 1220 ml OutputOutput Total 650 ml 1000 ml 200 ml BalanceBalance 1390 ml -120 ml 1020 ml Exam General: Well developed man sitting up in bed, awake and alert. HEENT: Atraumatic, normocephalic. The pupils are equal, round and reactive. Extraocular motor are intact, mucous membranes moist Neck: Supple with full range of motion. No rigidity or meningismus Chest: Nontender Lungs: Clear to auscultation bilaterally no crackles rales or wheezing Heart: Normal S1-S2, Regular rhythm and rate. No murmur, S3, or S4 Abdomen: Soft , nontender, mildly distended abdomen/ascites, bowel sounds are present. No guarding no rebound tenderness , Extremities: Normal to inspection, no edema no cyanosis Neurologic: Slightly delayed speech, but alert and oriented to name, location, year, month. Results Results 24hrs Laboratory Tests Test 08/26/18 12:27 08/26/18 17:25 08/26/18 20:00 08/26/18 21:13 Bedside Glucose 288 H 277 H 269 H Urine Color YELLOW Urine Clarity CLEAR Urine pH 6.0 Urine Specific 1.009 [place] Urine Ketones NEGATIVE Urine Nitrite NEGATIVE Urine Bilirubin NEGATIVE Urine Urobilinogen 1+ H Urine Leukocyte 1+ H Esterase Urine Microscopic 1 RBC Urine Microscopic 19 H WBC Urine Bacteria FEW A Urine Hemoglobin 1+ H Urine Random 26.87 Creatinine Urine Random Sodium 41 Urine Glucose 3+ H Urine Total Protein 34.0 H Test 08/27/18 05:06 08/27/18 07:44 08/27/18 11:32 White Blood Count 22.2 H Red Blood Count 3.17 L Hemoglobin 9.9 L Hematocrit 27.7 L Mean Corpuscular 87.4 Volume Mean Corpuscular 31.2 Hemoglobin Mean Corpuscular 35.7 Hemoglobin Concent Red Cell 13.9 Distribution Width Platelet Count 111 L Mean Platelet Volume 11.0 H Immature 4.000 H Granulocytes % Neutrophils % 78.1 H Segmented 76 Neutrophils % (Manual) Band Neutrophils % 11 H (Manual) Lymphocytes % 7.7 L Lymphocytes % 3 L (Manual) Monocytes % 9.2 Monocytes % (Manual) 5 Eosinophils % 0.7 Eosinophils % 1 (Manual) Basophils % 0.3 Myelocytes % 2 H (Manual) Promyelocytes % 2 H (Manual) Nucleated Red Blood 0.0 Cells % Immature 0.880 H Granulocytes # Neutrophils # 17.4 H Neutrophils # 17.4 H (Manual) Band Neutrophils # 2.4 H Lymphocytes (Manual) 0.6 L Lymphocytes # 1.7 Monocytes # 2.0 H Monocytes # (Manual) 1.1 H Eosinophils # 0.2 Basophils # 0.1 Myelocytes # 0.4 H Promyelocytes # 0.4 H Nucleated Red Blood 0.0 Cells # Platelet Estimate DECREASED Polychromasia 1+ Poikilocytosis 1+ Spherocytes 1+ Prothrombin Time 19.9 H Prothrombin Time 1.6 Ratio INR International 1.68 Normalized Ratio Sodium Level 132 L Potassium Level 3.8 Chloride Level 103 Carbon Dioxide Level 21 Anion Gap 8 Blood Urea Nitrogen 24 H Creatinine 1.19 Est Glomerular > 60 Filtrat Rate mL/min Glucose Level 277 H Calcium Level 8.9 Total Bilirubin 3.7 #H Direct Bilirubin 2.30 #H Indirect Bilirubin 1.4 H Aspartate Amino 39 Transf (AST/SGOT) Alanine 27 Aminotransferase (AL T/SGPT) Alkaline Phosphatase 168 H Total Protein 5.9 L Albumin 2.0 L Globulin 3.90 H Albumin/Globulin 0.51 Ratio Bedside Glucose 265 H 237 H Medications Medication Current Medications Ondansetron HCl (Zofran Inj) 4 mg Q6H PRN IV NAUSEA AND/OR VOMITING; Start 08/25/18 at 20:00 Albuterol (Proventil 0.083% (Neb)) 2.5 mg Q2H RESP THERAPY PRN NEB SHORTNESS OF BREATH; Start 08/25/18 at 20:00 Ipratropium [place] (Atrovent 0.02% (Neb)) 0.5 mg Q2H RESP THERAPY PRN NEB SHORTNESS OF BREATH; Start 08/25/18 at 20:00 Acetaminophen (Tylenol Liquid) 650 mg Q6H PRN PO PAIN LEVEL 1-3 OR FEVER Last administered on 08/27/18at 00:01; Admin Dose 650 MG; Start 08/25/18 at 20:00 Morphine Sulfate (morphine) 1 mg Q4H PRN IV PAIN LEVEL 7-10; Start 08/25/18 at 20:00 Lactulose (Enulose) 20 gm Q6 PO Last administered on 08/27/18at 00:00; Admin Dose 20 GM; Start 08/26/18 at 06:00 Potassium Chloride 50 ml @ 50 mls/hr K PROTOCOL PRN IVPB PENDING LAB VALUE Last administered on 08/26/18at 17:23; Admin Dose 50 MLS/HR; Start 08/26/18 at 04:30 Miscellaneous Information 1 ea NOTE XX ; Start 08/26/18 at 05:00 Glucose (Glutose) 15 gm Q15M PRN PO DECREASED GLUCOSE; Start 08/26/18 at 05:00 Glucose (Glutose) 22.5 gm Q15M PRN PO DECREASED GLUCOSE; Start 08/26/18 at 05:00 Dextrose (D50w Syringe) 25 ml Q15M PRN IV DECREASED GLUCOSE; Start 08/26/18 at 05:00 Dextrose (D50w Syringe) 50 ml Q15M PRN IV DECREASED GLUCOSE; Start 08/26/18 at 05:00 Glucagon (Glucagen) 1 mg Q15M PRN IM DECREASED GLUCOSE; Start 08/26/18 at 05:00 Glucose (Glutose) 15 gm Q15M PRN BUCCAL DECREASED GLUCOSE; Start 08/26/18 at 05:00 Folic Acid (Folic Acid) 1 mg DAILY PO Last administered on 08/27/18 08:52; Admin Dose 1 MG; Start 08/26/18 at 09:00 Multivitamins Therapeutic (Theragran) 1 tab DAILY PO Last administered on 08/27/18 08:52; Admin Dose 1 TAB; Start 08/26/18 at 09:00 Thiamine HCl (Vitamin B1) 100 mg DAILY PO Last administered on 08/27/18 08:52; Admin Dose 100 MG; Start 08/26/18 at 09:00 Insulin Aspart (Novolog Insulin Pen) NOVOLOG *MODERATE* ALGORITHM WITH MEALS BEDTIME SC Last administered on 08/27/18at 07:47; Admin Dose 8 UNIT; Start 08/26/18 at 11:30 Famotidine (Pepcid) 20 mg DAILY PO Last administered on 08/27/18 08:52; Admin Dose 20 MG; Start 08/27/18 at 09:00 Piperacillin Sod/ Tazobactam Sod 100 ml @ 200 mls/hr Q6 IVPB ; Start 08/27/18 at 12:00 Insulin Glargine (Lantus) 20 units DAILY@2000 SC ; Start 08/27/18 at 20:00 JONN SEAY MD Aug 27, 2018 11:44
[2018-08-27] MEDS: PIPER-TAZO 3.375 GM IV (PMX) 100 ML IVPB SCH ×3 (11:57→23:26)
[2018-08-27] MEDS: INSULIN GLARGINE [LANTus] (100 UNITS/ML) SYG SC SCH (21:06)
[2018-08-28] VITALS (11 sets, daily range): BP systolic 105–118; BP diastolic 65–75; PULSE 106–120; RESP 18–20
[2018-08-28] MEDS: LACTULOSE 30ML CUP PO SCH ×4 (05:45→23:06)
[2018-08-28] MEDS: PIPER-TAZO 3.375 GM IV (PMX) 100 ML IVPB SCH ×4 (05:55→23:11)
[2018-08-28] MEDS ORDERED: POTASSIUM CHLORIDE (SR) 20 MEQ TAB PO STA (07:09)
[2018-08-28] MEDS: THIAMINE 100 MG TAB PO SCH (08:00)
[2018-08-28] MEDS: INSULIN ASPART [NOVOLOG] 3 ML PEN SC SCH ×4 (08:00→20:21)
[2018-08-28] MEDS: MULTIVITAMINS THERAPEUTIC TAB PO SCH (08:00)
[2018-08-28] MEDS: FAMOTIDINE 20 MG TAB PO SCH (08:01)
[2018-08-28] MEDS: FOLIC ACID 1 MG TAB PO SCH (08:01)
--- NOTE | 2018-08-28 13:41 | CONS ---
Assessment/Plan Assessment/Plan Hospital Course (Demo Recall) 1. Nonoliguric acute kidney injury with previous baseline creatinine of 1.1 to 1.2 mg/dL. Etiology of acute kidney injury is secondary to hemodynamics, volume depletion. Renal function has improved with IV hydration. on decreased IVF. At this point, continue current treatment plan, supportive care, renally dose all medications. 2. Acute hypernatremia, etiology secondary to hyperglycemia, hypokalemia. The patient's sodium levels have improved. Continue current treatment plan. Marco A nue good glycemic control, monitor closely and limit free water intake. 3. Metabolic acidosis secondary to acute kidney injury, improving. 4. Anemia. Monitor hemoglobin and hematocrit levels. 5. Mineral bone disorder. Monitor calcium and phosphorus levels. 6. Diabetes. Continue current insulin regimen. 7. Hypokalemia. Continue to monitor and replete as needed. 8. Severe sepsis secondary to pneumonia. Continue current antibiotic regimen. 9. History of ETOH abuse. Consultation Date/Type/Reason Admit Date/Time Aug 25, 2018 at 19:52 Initial Consult Date Date/Time of Note DATE: 08/28/18 TIME: 13:40 24 HR Interval Summary Free Text/Dictation denies shortness of breath, n/v, or urinary issues d/w rn gen nad cv rrr pulm ctab abd soft, nd, nt +bs ext: no edema Exam/Review of Systems Exam Vitals Vital Signs Date Temp Pulse Resp B/P (MAP) Pulse Ox O2 O2 Flow FiO2 Time Delivery Rate 08/28/18 106 12:01 08/28/18 98.2 18 110/75 94 Room Air 11:30 (87) Intake and Output 08/27/18 08/27/18 08/28/18 1414:59 22:59 06:59 IntakeIntake Total 100 ml 980 ml 500 ml OutputOutput Total 3 ml 3 ml BalanceBalance 100 ml 977 ml 497 ml Results Result Diagram: 08/28/18 0506 08/28/18 0506 Results 24hrs Laboratory Tests Test 08/27/18 17:23 08/27/18 20:21 08/28/18 05:06 08/28/18 07:58 Bedside Glucose 251 H 201 140 White Blood Count 29.2 #H Red Blood Count 3.49 L Hemoglobin 10.7 L Hematocrit 30.7 L Mean Corpuscular 88.0 Volume Mean Corpuscular 30.7 Hemoglobin Mean Corpuscular 34.9 Hemoglobin Concent Red Cell 14.6 H Distribution Width Platelet Count 132 L Mean Platelet Volume 10.8 H Immature 5.600 H Granulocytes % Neutrophils % Segmented 80 H Neutrophils % (Manual) Band Neutrophils % 2 (Manual) Lymphocytes % Lymphocytes % 5 L (Manual) Monocytes % Monocytes % (Manual) 10 Eosinophils % Eosinophils % 2 (Manual) Basophils % Plasma Cells % 1 (manual) Nucleated Red Blood 0.0 Cells % Immature 1.630 H Granulocytes # Neutrophils # Neutrophils # 23.5 H (Manual) Band Neutrophils # 0.5 Lymphocytes (Manual) 1.4 Lymphocytes # Monocytes # Monocytes # (Manual) 2.9 H Eosinophils # Basophils # Plasma Cells # 0.2 H (manual) Nucleated Red Blood Cells # Toxic Granulation 1+ Platelet Estimate DECREASED Giant Platelets 4 H Polychromasia 2+ Poikilocytosis 1+ Anisocytosis 1+ Prothrombin Time 20.8 H Prothrombin Time 1.6 Ratio INR International 1.78 Normalized Ratio Sodium Level 131 L Potassium Level 3.2 L Chloride Level 101 Carbon Dioxide Level 23 Anion Gap 7 Blood Urea Nitrogen 20 Creatinine 1.29 H Est Glomerular > 60 Filtrat Rate mL/min Glucose Level 147 # Calcium Level 9.1 Total Bilirubin 3.7 H Direct Bilirubin 2.10 H Indirect Bilirubin 1.6 H Aspartate Amino 42 Transf (AST/SGOT) Alanine 23 Aminotransferase (AL T/SGPT) Alkaline Phosphatase 185 H Total Protein 6.1 Albumin 2.1 L Globulin 4.00 H Albumin/Globulin 0.52 Ratio Test 08/28/18 11:58 Bedside Glucose 133 Medications Medication Current Medications Ondansetron HCl (Zofran Inj) 4 mg Q6H PRN IV NAUSEA AND/OR VOMITING; Start 08/25/18 at 20:00 Albuterol (Proventil 0.083% (Neb)) 2.5 mg Q2H RESP THERAPY PRN NEB SHORTNESS OF BREATH; Start 08/25/18 at 20:00 Ipratropium [place] (Atrovent 0.02% (Neb)) 0.5 mg Q2H RESP THERAPY PRN NEB SHORTNESS OF BREATH; Start 08/25/18 at 20:00 Acetaminophen (Tylenol Liquid) 650 mg Q6H PRN PO PAIN LEVEL 1-3 OR FEVER Last administered on 08/27/18at 21:52; Admin Dose 650 MG; Start 08/25/18 at 20:00 Morphine Sulfate (morphine) 1 mg Q4H PRN IV PAIN LEVEL 7-10; Start 08/25/18 at 20:00 Lactulose (Enulose) 20 gm Q6 PO Last administered on 08/28/18at 12:12; Admin Dose 20 GM; Start 08/26/18 at 06:00 Potassium Chloride 50 ml @ 50 mls/hr K PROTOCOL PRN IVPB PENDING LAB VALUE Last administered on 08/26/18at 17:23; Admin Dose 50 MLS/HR; Start 08/26/18 at 04:30 Miscellaneous Information 1 ea NOTE XX ; Start 08/26/18 at 05:00 Glucose (Glutose) 15 gm Q15M PRN PO DECREASED GLUCOSE; Start 08/26/18 at 05:00 Glucose (Glutose) 22.5 gm Q15M PRN PO DECREASED GLUCOSE; Start 08/26/18 at 05:00 Dextrose (D50w Syringe) 25 ml Q15M PRN IV DECREASED GLUCOSE; Start 08/26/18 at 05:00 Dextrose (D50w Syringe) 50 ml Q15M PRN IV DECREASED GLUCOSE; Start 08/26/18 at 05:00 Glucagon (Glucagen) 1 mg Q15M PRN IM DECREASED GLUCOSE; Start 08/26/18 at 05:00 Glucose (Glutose) 15 gm Q15M PRN BUCCAL DECREASED GLUCOSE; Start 08/26/18 at 05:00 Folic Acid (Folic Acid) 1 mg DAILY PO Last administered on 08/28/18at 08:01; Admin Dose 1 MG; Start 08/26/18 at 09:00 Multivitamins Therapeutic (Theragran) 1 tab DAILY PO Last administered on 08/28/18at 08:00; Admin Dose 1 TAB; Start 08/26/18 at 09:00 Thiamine HCl (Vitamin B1) 100 mg DAILY PO Last administered on 08/28/18at 08:00; Admin Dose 100 MG; Start 08/26/18 at 09:00 Insulin Aspart (Novolog Insulin Pen) NOVOLOG *MODERATE* ALGORITHM WITH MEALS BEDTIME SC Last administered on 08/27/18at 21:06; Admin Dose 1 UNIT; Start 08/26/18 at 11:30 Famotidine (Pepcid) 20 mg DAILY PO Last administered on 08/28/18at 08:01; Admin Dose 20 MG; Start 08/27/18 at 09:00 Piperacillin Sod/ Tazobactam Sod 100 ml @ 200 mls/hr Q6 IVPB Last administered on 08/28/18at 12:13; Admin Dose 200 MLS/HR; Start 08/27/18 at 12:00 Insulin Glargine (Lantus) 20 units DAILY@2000 SC Last administered on 08/27/18 21:06; Admin Dose 20 UNITS; Start 08/27/18 at 20:00 Simethicone (Mylicon) 80 mg Q8 PRN PO DISTENSION/GAS/BLOATING Last administered on 08/27/18at 21:52; Admin Dose 80 MG; Start 08/27/18 at 21:00 MAO MAGALLON MD Aug 28, 2018 13:41
--- NOTE | 2018-08-28 18:37 | PN ---
Date/Time of Note Date/Time of Note DATE: 08/28/18 TIME: 18:34 Assessment/Plan VTE Prophylaxis Risk score (from Ns)>0 risk: 1 SCD applied (from Ns): Yes Pharmacological prophylaxis: NA/contraindicated Pharm contraindication: low risk/ambulating Lines/Catheters IV C[facility]from [facility] [place] [facility] Urinary Cath still in place: No Assessment/Plan Assessment/Plan 38 yo man with newly diagnosed diabetes and history of alcoholic hepatitis prese nts with UTI in hyperosmolar hyperglycemic state. #Diabetes mellitus, newly diagnosed #Hyperglycemia - Last hospital admission HgbA1C<6.5, now 10. - Insulin sliding scale and glargine qhs. - High insulin requirements. Anticipate need for discharge on glargine qhs. - Diabetic teaching. # Severe sepsis: - Not requiring pressors - Probably due to UTI - Blood, urine cultures growing hernandes-sensitive E coli - Zosyn while in house, anticipate discharge on cipro. #TORIBIO - Improving with hydration. # Acute encephalopathy: - Probably was due to metabolic state. - Resolved #Hyponatremia - Resolved. #Hypokalemia - Resolved # history of alcoholic hepatitis with likely early cirrhosis: - Previous imaging studies to show signs of possible early cirrhosis. - No ascites DVT GI prophylaxis: SCDs, H2 nicole Dispo: Sudden jump in WBC today despite overall improvement in clinical conditio n. Will send procalcitonin. Expectant management on telemetry for now. Result Diagram: 08/28/18 0506 08/28/18 0506 Subjective 24 Hr Interval Summary Free Text/Dictation Mental status seems improved today. Patient reports that earlier he was having "swinging" vision when he turned his head to look at something, this has now resolved. Overall feeling well, tolerating diet, ambulating, patient requesting discharge. Exam/Review of Systems Exam Vitals Vital Signs Date Temp Pulse Resp B/P (MAP) Pulse Ox O2 O2 Flow FiO2 Time Delivery Rate 08/28/18 113 16:01 08/28/18 98.3 18 105/65 96 Room Air 15:11 (78) Intake and Output 08/27/18 08/27/18 08/28/18 1515:00 23:00 07:00 IntakeIntake Total 100 ml 980 ml 500 ml OutputOutput Total 3 ml 3 ml BalanceBalance 100 ml 977 ml 497 ml Exam General: Well developed man sitting up in bed, awake and alert. HEENT: Atraumatic, normocephalic. The pupils are equal, round and reactive. Extraocular motor are intact, mucous membranes moist Neck: Supple with full range of motion. No rigidity or meningismus Chest: Nontender Lungs: Clear to auscultation bilaterally no crackles rales or wheezing Heart: Normal S1-S2, Regular rhythm and rate. No murmur, S3, or S4 Abdomen: Soft , nontender, mildly distended abdomen/ascites, bowel sounds are present. No guarding no rebound tenderness , Extremities: Normal to inspection, no edema no cyanosis Neurologic: Normal speech, alert and oriented to name, location, year, month, day. Results Results 24hrs Laboratory Tests Test 08/27/18 20:21 08/28/18 05:06 08/28/18 07:58 08/28/18 11:58 Bedside Glucose 201 140 133 White Blood Count 29.2 #H Red Blood Count 3.49 L Hemoglobin 10.7 L Hematocrit 30.7 L Mean Corpuscular 88.0 Volume Mean Corpuscular 30.7 Hemoglobin Mean Corpuscular 34.9 Hemoglobin Concent Red Cell 14.6 H Distribution Width Platelet Count 132 L Mean Platelet Volume 10.8 H Immature 5.600 H Granulocytes % Neutrophils % Segmented 80 H Neutrophils % (Manual) Band Neutrophils % 2 (Manual) Lymphocytes % Lymphocytes % 5 L (Manual) Monocytes % Monocytes % (Manual) 10 Eosinophils % Eosinophils % 2 (Manual) Basophils % Plasma Cells % 1 (manual) Nucleated Red Blood 0.0 Cells % Immature 1.630 H Granulocytes # Neutrophils # Neutrophils # 23.5 H (Manual) Band Neutrophils # 0.5 Lymphocytes (Manual) 1.4 Lymphocytes # Monocytes # Monocytes # (Manual) 2.9 H Eosinophils # Basophils # Plasma Cells # 0.2 H (manual) Nucleated Red Blood Cells # Toxic Granulation 1+ Platelet Estimate DECREASED Giant Platelets 4 H Polychromasia 2+ Poikilocytosis 1+ Anisocytosis 1+ Prothrombin Time 20.8 H Prothrombin Time 1.6 Ratio INR International 1.78 Normalized Ratio Sodium Level 131 L Potassium Level 3.2 L Chloride Level 101 Carbon Dioxide Level 23 Anion Gap 7 Blood Urea Nitrogen 20 Creatinine 1.29 H Est Glomerular > 60 Filtrat Rate mL/min Glucose Level 147 # Calcium Level 9.1 Total Bilirubin 3.7 H Direct Bilirubin 2.10 H Indirect Bilirubin 1.6 H Aspartate Amino 42 Transf (AST/SGOT) Alanine 23 Aminotransferase (AL T/SGPT) Alkaline Phosphatase 185 H Total Protein 6.1 Albumin 2.1 L Globulin 4.00 H Albumin/Globulin 0.52 Ratio Test 08/28/18 16:59 Bedside Glucose 230 H Medications Medication Current Medications Ondansetron HCl (Zofran Inj) 4 mg Q6H PRN IV NAUSEA AND/OR VOMITING; Start 08/25/18 at 20:00 Albuterol (Proventil 0.083% (Neb)) 2.5 mg Q2H RESP THERAPY PRN NEB SHORTNESS OF BREATH; Start 08/25/18 at 20:00 Ipratropium [place] (Atrovent 0.02% (Neb)) 0.5 mg Q2H RESP THERAPY PRN NEB SHORTNESS OF BREATH; Start 08/25/18 at 20:00 Acetaminophen (Tylenol Liquid) 650 mg Q6H PRN PO PAIN LEVEL 1-3 OR FEVER Last administered on 08/27/18at 21:52; Admin Dose 650 MG; Start 08/25/18 at 20:00 Morphine Sulfate (morphine) 1 mg Q4H PRN IV PAIN LEVEL 7-10; Start 08/25/18 at 20:00 Lactulose (Enulose) 20 gm Q6 PO Last administered on 08/28/18at 17:08; Admin Dose 20 GM; Start 08/26/18 at 06:00 Potassium Chloride 50 ml @ 50 mls/hr K PROTOCOL PRN IVPB PENDING LAB VALUE Last administered on 08/26/18at 17:23; Admin Dose 50 MLS/HR; Start 08/26/18 at 04:30 Miscellaneous Information 1 ea NOTE XX ; Start 08/26/18 at 05:00 Glucose (Glutose) 15 gm Q15M PRN PO DECREASED GLUCOSE; Start 08/26/18 at 05:00 Glucose (Glutose) 22.5 gm Q15M PRN PO DECREASED GLUCOSE; Start 08/26/18 at 05:00 Dextrose (D50w Syringe) 25 ml Q15M PRN IV DECREASED GLUCOSE; Start 08/26/18 at 05:00 Dextrose (D50w Syringe) 50 ml Q15M PRN IV DECREASED GLUCOSE; Start 08/26/18 at 05:00 Glucagon (Glucagen) 1 mg Q15M PRN IM DECREASED GLUCOSE; Start 08/26/18 at 05:00 Glucose (Glutose) 15 gm Q15M PRN BUCCAL DECREASED GLUCOSE; Start 08/26/18 at 05:00 Folic Acid (Folic Acid) 1 mg DAILY PO Last administered on 08/28/18 08:01; Admin Dose 1 MG; Start 08/26/18 at 09:00 Multivitamins Therapeutic (Theragran) 1 tab DAILY PO Last administered on 08/28/18 08:00; Admin Dose 1 TAB; Start 08/26/18 at 09:00 Thiamine HCl (Vitamin B1) 100 mg DAILY PO Last administered on 08/28/18 08:00; Admin Dose 100 MG; Start 08/26/18 at 09:00 Insulin Aspart (Novolog Insulin Pen) NOVOLOG *MODERATE* ALGORITHM WITH MEALS BEDTIME SC Last administered on 08/28/18 17:06; Admin Dose 6 UNIT; Start 08/26/18 at 11:30 Famotidine (Pepcid) 20 mg DAILY PO Last administered on 08/28/18 08:01; Admin Dose 20 MG; Start 08/27/18 at 09:00 Piperacillin Sod/ Tazobactam Sod 100 ml @ 200 mls/hr Q6 IVPB Last administered on 08/28/18 17:08; Admin Dose 200 MLS/HR; Start 08/27/18 at 12:00 Insulin Glargine (Lantus) 20 units DAILY@2000 SC Last administered on 08/27/18 21:06; Admin Dose 20 UNITS; Start 08/27/18 at 20:00 Simethicone (Mylicon) 80 mg Q8 PRN PO DISTENSION/GAS/BLOATING Last administered on 08/27/18 21:52; Admin Dose 80 MG; Start 08/27/18 at 21:00 JONN SEAY MD Aug 28, 2018 18:37
[2018-08-28] MEDS: INSULIN GLARGINE [LANTus] (100 UNITS/ML) SYG SC SCH (20:24)
[2018-08-29] VITALS (12 sets, daily range): BP systolic 93–119; BP diastolic 58–75; PULSE 101–117; RESP 16–20
[2018-08-29] MEDS: PIPER-TAZO 3.375 GM IV (PMX) 100 ML IVPB SCH ×3 (05:47→17:27)
[2018-08-29] MEDS: LACTULOSE 30ML CUP PO SCH ×3 (05:47→17:27)
[2018-08-29] MEDS: INSULIN ASPART [NOVOLOG] 3 ML PEN SC SCH ×4 (07:53→20:37)
[2018-08-29] MEDS: FOLIC ACID 1 MG TAB PO SCH (08:17)
[2018-08-29] MEDS: FAMOTIDINE 20 MG TAB PO SCH (08:17)
[2018-08-29] MEDS: POTASSIUM CHLORIDE (SR) 20 MEQ TAB PO SCH (08:17)
[2018-08-29] MEDS: MULTIVITAMINS THERAPEUTIC TAB PO SCH (08:17)
[2018-08-29] MEDS: THIAMINE 100 MG TAB PO SCH (08:17)
--- NOTE | 2018-08-29 13:43 | CONS ---
Assessment/Plan Assessment/Plan Hospital Course (Demo Recall) 1. Nonoliguric acute kidney injury with previous baseline creatinine of 1.1 to 1.2 mg/dL. Etiology of acute kidney injury is secondary to hemodynamics, volume depletion. Renal function has improved with IV hydration. on decreased IVF. At this point, continue current treatment plan, supportive care, renally dose all medications. 2. hyponatremia: will check urine na and osm 3. Metabolic acidosis secondary to acute kidney injury, improving. 4. Anemia. Monitor hemoglobin and hematocrit levels. 5. Mineral bone disorder. Monitor calcium and phosphorus levels. 6. Diabetes. Continue current insulin regimen. 7. Hypokalemia. Continue to monitor and replete as needed. 8. Severe sepsis due to uti/ bacteremia: cont abx 9. History of ETOH abuse. Consultation Date/Type/Reason Admit Date/Time Aug 25, 2018 at 19:52 Initial Consult Date Date/Time of Note DATE: 08/29/18 TIME: 13:42 Exam/Review of Systems Exam Vitals Vital Signs Date Temp Pulse Resp B/P (MAP) Pulse Ox O2 O2 Flow FiO2 Time Delivery Rate 08/29/18 108 12:01 08/29/18 98.3 18 107/69 95 Room Air 11:21 (82) Intake and Output 08/28/18 08/28/18 08/29/18 1515:00 23:00 07:00 IntakeIntake Total 2000 ml OutputOutput Total 2600 ml BalanceBalance -600 ml Results Result Diagram: 08/29/18 0455 08/29/18 0455 Results 24hrs Laboratory Tests Test 08/28/18 16:59 08/28/18 20:20 08/29/18 04:55 08/29/18 07:49 Bedside Glucose 230 H 135 159 White Blood Count 32.7 H Red Blood Count 3.63 L Hemoglobin 11.1 L Hematocrit 31.8 L Mean Corpuscular 87.6 Volume Mean Corpuscular 30.6 Hemoglobin Mean Corpuscular 34.9 Hemoglobin Concent Red Cell 14.9 H Distribution Width Platelet Count 167 # Mean Platelet Volume 10.5 H Immature 4.900 H Granulocytes % Neutrophils % Segmented 78 H Neutrophils % (Manual) Band Neutrophils % 2 (Manual) Lymphocytes % Lymphocytes % 7 L (Manual) Reactive Lymphocytes 1 H % (Manual) Monocytes % Monocytes % (Manual) 9 Eosinophils % Eosinophils % 1 (Manual) Basophils % Metamyelocytes % 1 H (manual) Myelocytes % 1 H (Manual) Nucleated Red Blood 0.0 Cells % Immature 1.610 H Granulocytes # Neutrophils # Neutrophils # 25.7 H (Manual) Band Neutrophils # 0.6 Lymphocytes (Manual) 2.2 Lymphocytes # Reactive Lymphocytes 0.3 H # Monocytes # Monocytes # (Manual) 2.9 H Eosinophils # Basophils # Metamyelocytes # 0.3 H Myelocytes # 0.3 H Nucleated Red Blood Cells # Toxic Granulation 1+ Platelet Estimate NORMAL Giant Platelets 2 H Polychromasia 1+ Poikilocytosis 2+ Anisocytosis 2+ Prothrombin Time 20.0 H Prothrombin Time 1.6 Ratio INR International 1.69 Normalized Ratio Sodium Level 131 L Potassium Level 2.8 *L Chloride Level 101 Carbon Dioxide Level 22 Anion Gap 8 Blood Urea Nitrogen 20 Creatinine 1.14 Est Glomerular > 60 Filtrat Rate mL/min Glucose Level 92 # Calcium Level 8.2 L Total Bilirubin 2.5 H Direct Bilirubin 1.10 #H Indirect Bilirubin 1.4 H Aspartate Amino 53 H Transf (AST/SGOT) Alanine 27 Aminotransferase (AL T/SGPT) Alkaline Phosphatase 211 H Total Protein 6.6 Albumin 2.2 L Globulin 4.40 H Albumin/Globulin 0.50 Ratio Procalcitonin 5.51 H Test 08/29/18 11:36 Bedside Glucose 112 Medications Medication Current Medications Ondansetron HCl (Zofran Inj) 4 mg Q6H PRN IV NAUSEA AND/OR VOMITING; Start 08/25/18 at 20:00 Albuterol (Proventil 0.083% (Neb)) 2.5 mg Q2H RESP THERAPY PRN NEB SHORTNESS OF BREATH; Start 08/25/18 at 20:00 Ipratropium [place] (Atrovent 0.02% (Neb)) 0.5 mg Q2H RESP THERAPY PRN NEB SHORTNESS OF BREATH; Start 08/25/18 at 20:00 Acetaminophen (Tylenol Liquid) 650 mg Q6H PRN PO PAIN LEVEL 1-3 OR FEVER Last administered on 08/27/18at 21:52; Admin Dose 650 MG; Start 08/25/18 at 20:00 Morphine Sulfate (morphine) 1 mg Q4H PRN IV PAIN LEVEL 7-10; Start 08/25/18 at 20:00 Lactulose (Enulose) 20 gm Q6 PO Last administered on 08/29/18 11:39; Admin Dose 20 GM; Start 08/26/18 at 06:00 Potassium Chloride 50 ml @ 50 mls/hr K PROTOCOL PRN IVPB PENDING LAB VALUE Last administered on 08/26/18at 17:23; Admin Dose 50 MLS/HR; Start 08/26/18 at 04:30 Miscellaneous Information 1 ea NOTE XX ; Start 08/26/18 at 05:00 Glucose (Glutose) 15 gm Q15M PRN PO DECREASED GLUCOSE; Start 08/26/18 at 05:00 Glucose (Glutose) 22.5 gm Q15M PRN PO DECREASED GLUCOSE; Start 08/26/18 at 05:00 Dextrose (D50w Syringe) 25 ml Q15M PRN IV DECREASED GLUCOSE; Start 08/26/18 at 05:00 Dextrose (D50w Syringe) 50 ml Q15M PRN IV DECREASED GLUCOSE; Start 08/26/18 at 05:00 Glucagon (Glucagen) 1 mg Q15M PRN IM DECREASED GLUCOSE; Start 08/26/18 at 05:00 Glucose (Glutose) 15 gm Q15M PRN BUCCAL DECREASED GLUCOSE; Start 08/26/18 at 05:00 Folic Acid (Folic Acid) 1 mg DAILY PO Last administered on 08/29/18 08:17; Admin Dose 1 MG; Start 08/26/18 at 09:00 Multivitamins Therapeutic (Theragran) 1 tab DAILY PO Last administered on 08/29/18 08:17; Admin Dose 1 TAB; Start 08/26/18 at 09:00 Thiamine HCl (Vitamin B1) 100 mg DAILY PO Last administered on 08/29/18 08:17; Admin Dose 100 MG; Start 08/26/18 at 09:00 Insulin Aspart (Novolog Insulin Pen) NOVOLOG *MODERATE* ALGORITHM WITH MEALS BEDTIME SC Last administered on 08/29/18at 07:53; Admin Dose 2 UNIT; Start 08/26/18 at 11:30 Famotidine (Pepcid) 20 mg DAILY PO Last administered on 08/29/18 08:17; Admin Dose 20 MG; Start 08/27/18 at 09:00 Piperacillin Sod/ Tazobactam Sod 100 ml @ 200 mls/hr Q6 IVPB Last administered on 08/29/18at 11:39; Admin Dose 200 MLS/HR; Start 08/27/18 at 12:00 Insulin Glargine (Lantus) 20 units DAILY@2000 SC Last administered on 08/28/18at 20:24; Admin Dose 20 UNITS; Start 08/27/18 at 20:00 Simethicone (Mylicon) 80 mg Q8 PRN PO DISTENSION/GAS/BLOATING Last administered on 08/27/18at 21:52; Admin Dose 80 MG; Start 08/27/18 at 21:00 Potassium Chloride (Klor-Con 20) 60 meq DAILY PO Last administered on 08/29/18at 08:17; Admin Dose 60 MEQ; Start 08/29/18 at 09:00 MAO MAGALLON MD Aug 29, 2018 13:43
--- NOTE | 2018-08-29 15:09 | PN ---
Date/Time of Note Date/Time of Note DATE: 08/29/18 TIME: 15:05 Assessment/Plan VTE Prophylaxis Risk score (from Ns)>0 risk: 1 SCD applied (from Ns): Yes Pharmacological prophylaxis: NA/contraindicated Pharm contraindication: low risk/ambulating Lines/Catheters IV [facility]from [facility] Saline Lock Urinary Cath still in place: No Assessment/Plan Assessment/Plan 38 yo man with newly diagnosed diabetes and history of alcoholic hepatitis prese nts with UTI in hyperosmolar hyperglycemic state. #Diabetes mellitus, newly diagnosed #Hyperglycemia - Last hospital admission HgbA1C<6.5, now 10. - Insulin sliding scale and glargine qhs. - High insulin requirements. Anticipate need for discharge on glargine qhs. - Diabetic teaching. # Severe sepsis: - Not requiring pressors - Probably due to UTI - Blood, urine cultures growing hernandes-sensitive E coli - Zosyn while in house, anticipate discharge on cipro. - Consult infectious disease #Hypokalemia - Requiring daily PO and IV replacement - Patient is on lactulose having 3 bowel movements per day. Given depressed mental status and confusion on admission, this should be continued. # Acute encephalopathy: - Probably was due to metabolic state. - Resolved #Hyponatremia - Resolved. # history of alcoholic hepatitis with likely early cirrhosis: - Previous imaging studies to show signs of possible early cirrhosis. - No ascites DVT GI prophylaxis: SCDs, H2 nicole Dispo: Maintain on telemetry for rising WBC and [id number] hypokalemia. Result Diagram: 08/29/18 0455 08/29/18 0455 Subjective 24 Hr Interval Summary Free Text/Dictation No acute overnight events. Patient overall doing well. Exam/Review of Systems Exam Vitals Vital Signs Date Temp Pulse Resp B/P (MAP) Pulse Ox O2 O2 Flow FiO2 Time Delivery Rate 08/29/18 98.0 107 18 100/68 95 Room Air 15:02 (79) Intake and Output 08/28/18 08/28/18 08/29/18 1515:00 23:00 07:00 IntakeIntake Total 2000 ml OutputOutput Total 2600 ml BalanceBalance -600 ml Exam General: Well developed man sleeping comfortably. HEENT: Atraumatic, normocephalic. The pupils are equal, round and reactive. Extraocular motor are intact, mucous membranes moist Neck: Supple with full range of motion. No rigidity or meningismus Chest: Nontender Lungs: Clear to auscultation bilaterally no crackles rales or wheezing Heart: Normal S1-S2, Regular rhythm and rate. No murmur, S3, or S4 Abdomen: Soft , nontender, mildly distended abdomen/ascites, bowel sounds are present. No guarding no rebound tenderness , Extremities: Normal to inspection, no edema no cyanosis Results Results 24hrs Laboratory Tests Test 08/28/18 16:59 08/28/18 20:20 08/29/18 04:55 08/29/18 07:49 Bedside Glucose 230 H 135 159 White Blood Count 32.7 H Red Blood Count 3.63 L Hemoglobin 11.1 L Hematocrit 31.8 L Mean Corpuscular 87.6 Volume Mean Corpuscular 30.6 Hemoglobin Mean Corpuscular 34.9 Hemoglobin Concent Red Cell 14.9 H Distribution Width Platelet Count 167 # Mean Platelet Volume 10.5 H Immature 4.900 H Granulocytes % Neutrophils % Segmented 78 H Neutrophils % (Manual) Band Neutrophils % 2 (Manual) Lymphocytes % Lymphocytes % 7 L (Manual) Reactive Lymphocytes 1 H % (Manual) Monocytes % Monocytes % (Manual) 9 Eosinophils % Eosinophils % 1 (Manual) Basophils % Metamyelocytes % 1 H (manual) Myelocytes % 1 H (Manual) Nucleated Red Blood 0.0 Cells % Immature 1.610 H Granulocytes # Neutrophils # Neutrophils # 25.7 H (Manual) Band Neutrophils # 0.6 Lymphocytes (Manual) 2.2 Lymphocytes # Reactive Lymphocytes 0.3 H # Monocytes # Monocytes # (Manual) 2.9 H Eosinophils # Basophils # Metamyelocytes # 0.3 H Myelocytes # 0.3 H Nucleated Red Blood Cells # Toxic Granulation 1+ Platelet Estimate NORMAL Giant Platelets 2 H Polychromasia 1+ Poikilocytosis 2+ Anisocytosis 2+ Prothrombin Time 20.0 H Prothrombin Time 1.6 Ratio INR International 1.69 Normalized Ratio Sodium Level 131 L Potassium Level 2.8 *L Chloride Level 101 Carbon Dioxide Level 22 Anion Gap 8 Blood Urea Nitrogen 20 Creatinine 1.14 Est Glomerular > 60 Filtrat Rate mL/min Glucose Level 92 # Calcium Level 8.2 L Total Bilirubin 2.5 H Direct Bilirubin 1.10 #H Indirect Bilirubin 1.4 H Aspartate Amino 53 H Transf (AST/SGOT) Alanine 27 Aminotransferase (AL T/SGPT) Alkaline Phosphatase 211 H Total Protein 6.6 Albumin 2.2 L Globulin 4.40 H Albumin/Globulin 0.50 Ratio Procalcitonin 5.51 H Test 08/29/18 11:36 Bedside Glucose 112 Medications Medication Current Medications Ondansetron HCl (Zofran Inj) 4 mg Q6H PRN IV NAUSEA AND/OR VOMITING; Start 08/25/18 at 20:00 Albuterol (Proventil 0.083% (Neb)) 2.5 mg Q2H RESP THERAPY PRN NEB SHORTNESS OF BREATH; Start 08/25/18 at 20:00 Ipratropium [place] (Atrovent 0.02% (Neb)) 0.5 mg Q2H RESP THERAPY PRN NEB SHORTNESS OF BREATH; Start 08/25/18 at 20:00 Acetaminophen (Tylenol Liquid) 650 mg Q6H PRN PO PAIN LEVEL 1-3 OR FEVER Last administered on 08/27/18at 21:52; Admin Dose 650 MG; Start 08/25/18 at 20:00 Morphine Sulfate (morphine) 1 mg Q4H PRN IV PAIN LEVEL 7-10; Start 08/25/18 at 20:00 Lactulose (Enulose) 20 gm Q6 PO Last administered on 08/29/18at 11:39; Admin Dose 20 GM; Start 08/26/18 at 06:00 Potassium Chloride 50 ml @ 50 mls/hr K PROTOCOL PRN IVPB PENDING LAB VALUE Last administered on 08/26/18at 17:23; Admin Dose 50 MLS/HR; Start 08/26/18 at 04:30 Miscellaneous Information 1 ea NOTE XX ; Start 08/26/18 at 05:00 Glucose (Glutose) 15 gm Q15M PRN PO DECREASED GLUCOSE; Start 08/26/18 at 05:00 Glucose (Glutose) 22.5 gm Q15M PRN PO DECREASED GLUCOSE; Start 08/26/18 at 05:00 Dextrose (D50w Syringe) 25 ml Q15M PRN IV DECREASED GLUCOSE; Start 08/26/18 at 05:00 Dextrose (D50w Syringe) 50 ml Q15M PRN IV DECREASED GLUCOSE; Start 08/26/18 at 05:00 Glucagon (Glucagen) 1 mg Q15M PRN IM DECREASED GLUCOSE; Start 08/26/18 at 05:00 Glucose (Glutose) 15 gm Q15M PRN BUCCAL DECREASED GLUCOSE; Start 08/26/18 at 05:00 Folic Acid (Folic Acid) 1 mg DAILY PO Last administered on 08/29/18 08:17; Admin Dose 1 MG; Start 08/26/18 at 09:00 Multivitamins Therapeutic (Theragran) 1 tab DAILY PO Last administered on 08/29/18 08:17; Admin Dose 1 TAB; Start 08/26/18 at 09:00 Thiamine HCl (Vitamin B1) 100 mg DAILY PO Last administered on 08/29/18 08:17; Admin Dose 100 MG; Start 08/26/18 at 09:00 Insulin Aspart (Novolog Insulin Pen) NOVOLOG *MODERATE* ALGORITHM WITH MEALS BEDTIME SC Last administered on 08/29/18 07:53; Admin Dose 2 UNIT; Start 08/26/18 at 11:30 Famotidine (Pepcid) 20 mg DAILY PO Last administered on 08/29/18 08:17; Admin Dose 20 MG; Start 08/27/18 at 09:00 Piperacillin Sod/ Tazobactam Sod 100 ml @ 200 mls/hr Q6 IVPB Last administered on 08/29/18 11:39; Admin Dose 200 MLS/HR; Start 08/27/18 at 12:00 Insulin Glargine (Lantus) 20 units DAILY@2000 SC Last administered on 08/28/18 20:24; Admin Dose 20 UNITS; Start 08/27/18 at 20:00 Simethicone (Mylicon) 80 mg Q8 PRN PO DISTENSION/GAS/BLOATING Last administered on 08/27/18 21:52; Admin Dose 80 MG; Start 08/27/18 at 21:00 Potassium Chloride (Klor-Con 20) 60 meq DAILY PO Last administered on 08/29/18 08:17; Admin Dose 60 MEQ; Start 08/29/18 at 09:00 JONN SEAY MD Aug 29, 2018 15:09
[2018-08-29] MEDS: POTASSIUM CHLORIDE 100 ML IVPB SCH ×2 (15:32→17:27)
[2018-08-29] MEDS: INSULIN GLARGINE [LANTus] (100 UNITS/ML) SYG SC SCH (20:36)
[2018-08-30] VITALS (13 sets, daily range): BP systolic 95–115; BP diastolic 53–81; PULSE 65–118; RESP 16–22
[2018-08-30] MEDS: LACTULOSE 30ML CUP PO SCH ×4 (00:02→18:00)
[2018-08-30] MEDS: PIPER-TAZO 3.375 GM IV (PMX) 100 ML IVPB SCH (00:02)
[2018-08-30] MEDS: ACETAMINOPHEN 650MG/20.3ML CUP PO PRN (00:45)
--- NOTE | 2018-08-30 00:50 | CONS ---
Assessment/Plan Assessment/Plan Hospital Course (Demo Recall) assessment/impression - leukocytosis: reactive process to recurrent UTI and bacteremia. his persistent leukocytosis probably represents deep seated infection due to E. coli because his WBC level has remained elevated since 06/2018 and Pt has had the same infections (UTI and bacteremia) caused by the same bacteria (E. coli). - recurrent UTI and bacteremia with the same species of bacteria: concerning for deep seated infection/source. In particular, prostate and heart. Gallbladder may be considered but Pt does not have symptoms hat are referable to RUQ - the presence of immature granulocytes: also I suspect a reactive process but persistent presence of immature granulocytes despite appropriate antibiotic is concerning for possibly hematological disorder - unintentional 15 lb weight loss: could reflect on-going (occult/deep seated) infection but also his alcoholic hepatitis - severe sepsis (leukocytosis, tachycardia, RR>20 and lactic acid>4) due to bacteremia and UTI - recurrent TORIBIO - hepatic encephalopathy on presentatio. His head CT on 08/26/2018 showing no acute abnormalities - newly diagnosed with DM: Hgb A1c on 08/26/2018 was 10.2 while that on 07/01/2018 was 6.3 - nonspecific gallbladder wall thickening identified on abd CT and abd MRI in 06/2018 - alcoholic hepatitis, hepatitis ABC screen was negative in 06/2018 - smokes marijuana recommendations: - please refer to my points#1 and #2 above: I ordered repeat blood cultures x2, HIV screen, repeat procalcitonin, repeat lactic acid, lipase, AFP, PSA - I recommend transthoracic echo to r/o endocarditis - the prostate may be the source of E. coli causing recurrent UTI and bacteremia (prostatitis), and I recommend using an antibiotic that penetrates the prostate: levofloxacin; will d/c pip/tazo. - although I suspect his leukocytosis is a reactive process, I still recommend hematology consult because of the chronicity of his leukocytosis with the presence of immature granulocytes management d/w Pt, his cook and RICHIE Eller date of service: 08/29/2018 Consultation Date/Type/Reason Admit Date/Time Aug 25, 2018 at 19:52 Date of Consultation: Aug 29, 2018 Type of Consult ID Reason for Consultation persistent leukocytosis Requesting Provider: JONN MEAD MD Date/Time of Note DATE: 08/30/18 TIME: 00:43 Hx of Present Illness This is a 38 yo male with alcoholic early cirrhosis who presented at ER on 08/25/2018 c/o weakness, fatigue, dysuria, N&E and 15 lb weight loss. Pt was in severe sepsis with leukocytosis, tachycardia, RR>20 and lactic acid>4. His initial lab was significant for hyperglycemia, hypokalemia, TORIBIO and normal anion gap. His imaging studies were notable for abd NAGI on 08/26/2018 which did not show ascites and head CT on 08/26/2018 showing no acute abnormalities. Pt was started on pip/tazo. His urine and blood cultures collected on 08/25/2018 grew E. coli. The strain of E. coli in his urine culture was pansensitive while the strain of E. coli in his blood cultures was sensitive to all except for cefazolin. Pt was receiving pip/tazo and his abdominal Sx and dysuria improved. During this admission, he was diagnosed with DM: Hgb A1c on 08/26/2018 was 10.2 while that on 07/01/2018 was 6.3. his electrolyte abnormalities were corrected and his TORIBIO has improved. his WBC level however remained elevated: 08/25/2018 WBC 26,300 with left shift. On 08/29/2018 WBC was 32,700 with left shift. Immature granulocytes have been identified by automated differential. The Pt had a similar presentation in 06/2018. On 06/30/2018 Pt presented with acute alcoholic hepatitis, weakness. He had WBC 21,100 abd Hgb A1c 6.3 on 07/01/2018. He grew pansensitive E. coli in his urine and blood cultures. Pt was initially treated with pip/tazo, then ceftriaxone. During that admission, he received one dose of solumedrol followed by prednisone. WBC remained elevated with immature granulocytes: 19,600 on 07/04/2018. Pt was discharged on 07/07/2018. Pt did not have a follow up lab or another episode of hospitalization between 07/07/2018 and 08/25/2018, and therefore, it is unclear if his WBC level normalized between the 1st and 2nd admissions. Upon comparing his state of health, Pt reports that this time, he feels worse than 1st admission. For example, he has had unintentional loss of 15 lb. his energy level is 40% of his baseline before he became ill in 06/2018. In 06/2018, his energy level was 60%. prior to this admission, Pt had polydipsia and polyurea. Dr. Mead requested ID consultation re. persistently elevated WBC level Constitutional: poor po, other (see HPI, low energy state, 40% of his baseline); No febrile Eyes: no complaints ENT: no complaints Respiratory: no complaints Cardiovascular: no complaints Gastrointestinal: decreased appetite, diarrhea, passing stool (due to lactulose); No nausea, No vomiting Genitourinary: dysuria (had dysuria, resolved) Musculoskeletal: no complaints Skin: no complaints Neurologic: confusion (at the time of admission, not any more) Endocrine: polyuria, polydypsia Psychological: confusion Past Medical History Medical History: diabetes, hepatitis (alcoholic and fatty), pancreatitis, renal disease, urinary tract infection, other (bacteremia) Home Meds Reported Medications Ferrous Sulfate* (Ferrous Sulfate*) 325 Mg Tabec, 325 MG PO DAILY, TAB 08/25/18 Lorazepam* (Lorazepam*) 1 Mg Tablet, 1 MG PO Q12H PRN for ANXIETY for 15 Days, #30 08/25/18 Cholecalciferol* (Vitamin D*) 400 Unit Tablet, 800 UNIT PO DAILY, TAB 06/24/17 Medications Current Medications Ondansetron HCl (Zofran Inj) 4 mg Q6H PRN IV NAUSEA AND/OR VOMITING; Start 08/25/18 at 20:00 Albuterol (Proventil 0.083% (Neb)) 2.5 mg Q2H RESP THERAPY PRN NEB SHORTNESS OF BREATH; Start 08/25/18 at 20:00 Ipratropium [place] (Atrovent 0.02% (Neb)) 0.5 mg Q2H RESP THERAPY PRN NEB SHORTNESS OF BREATH; Start 08/25/18 at 20:00 Acetaminophen (Tylenol Liquid) 650 mg Q6H PRN PO PAIN LEVEL 1-3 OR FEVER Last administered on 08/27/18at 21:52; Admin Dose 650 MG; Start 08/25/18 at 20:00 Morphine Sulfate (morphine) 1 mg Q4H PRN IV PAIN LEVEL 7-10; Start 08/25/18 at 20:00 Lactulose (Enulose) 20 gm Q6 PO Last administered on 08/30/18at 00:02; Admin Dose 20 GM; Start 08/26/18 at 06:00 Potassium Chloride 50 ml @ 50 mls/hr K PROTOCOL PRN IVPB PENDING LAB VALUE Last administered on 08/26/18at 17:23; Admin Dose 50 MLS/HR; Start 08/26/18 at 04:30 Miscellaneous Information 1 ea NOTE XX ; Start 08/26/18 at 05:00 Glucose (Glutose) 15 gm Q15M PRN PO DECREASED GLUCOSE; Start 08/26/18 at 05:00 Glucose (Glutose) 22.5 gm Q15M PRN PO DECREASED GLUCOSE; Start 08/26/18 at 05:00 Dextrose (D50w Syringe) 25 ml Q15M PRN IV DECREASED GLUCOSE; Start 08/26/18 at 05:00 Dextrose (D50w Syringe) 50 ml Q15M PRN IV DECREASED GLUCOSE; Start 08/26/18 at 05:00 Glucagon (Glucagen) 1 mg Q15M PRN IM DECREASED GLUCOSE; Start 08/26/18 at 05:00 Glucose (Glutose) 15 gm Q15M PRN BUCCAL DECREASED GLUCOSE; Start 08/26/18 at 05:00 Folic Acid (Folic Acid) 1 mg DAILY PO Last administered on 08/29/18at 08:17; Admin Dose 1 MG; Start 08/26/18 at 09:00 Multivitamins Therapeutic (Theragran) 1 tab DAILY PO Last administered on 08/29/18at 08:17; Admin Dose 1 TAB; Start 08/26/18 at 09:00 Thiamine HCl (Vitamin B1) 100 mg DAILY PO Last administered on 08/29/18 08:17; Admin Dose 100 MG; Start 08/26/18 at 09:00 Insulin Aspart (Novolog Insulin Pen) NOVOLOG *MODERATE* ALGORITHM WITH MEALS BEDTIME SC Last administered on 08/29/18at 17:36; Admin Dose 2 UNIT; Start 08/26/18 at 11:30 Famotidine (Pepcid) 20 mg DAILY PO Last administered on 08/29/18at 08:17; Admin Dose 20 MG; Start 08/27/18 at 09:00 Piperacillin Sod/ Tazobactam Sod 100 ml @ 200 mls/hr Q6 IVPB Last administered on 08/30/18at 00:02; Admin Dose 200 MLS/HR; Start 08/27/18 at 12:00 Insulin Glargine (Lantus) 20 units DAILY@2000 SC Last administered on 08/29/18at 20:36; Admin Dose 20 UNITS; Start 08/27/18 at 20:00 Simethicone (Mylicon) 80 mg Q8 PRN PO DISTENSION/GAS/BLOATING Last administered on 08/27/18at 21:52; Admin Dose 80 MG; Start 08/27/18 at 21:00 Potassium Chloride (Klor-Con 20) 60 meq DAILY PO Last administered on 08/29/18at 08:17; Admin Dose 60 MEQ; Start 08/29/18 at 09:00 Allergies: Coded Allergies: No Known Allergy (Unverified , 08/25/18) Family History Significant Family History: diabetes (mother and uncle) Social History Alcohol Use: heavy Smoking Status: Never smoker Drug Use: marijuana Exam/Review of Systems Exam Vitals Vital Signs Date Temp Pulse Resp B/P (MAP) Pulse Ox O2 O2 Flow FiO2 Time Delivery Rate 08/30/18 104 00:00 08/29/18 99.2 20 108/75 97 20:50 (86) 08/29/18 Room Air 15:02 Intake and Output 08/29/18 08/29/18 08/30/18 1515:00 23:00 07:00 IntakeIntake Total 3000 ml BalanceBalance 3000 ml Constitutional: alert, oriented, well developed Psych: no complaints, nl mood/affect Head: normocephalic, atraumatic Eyes: nl conjunctiva, EOMI, nl lids, nl sclera ENMT: nl external ears & nose, nl lips & teeth, nl nasal mucosa & septum, mucosa pink and moist Neck: supple, non-tender Respiratory: clear to auscultation, normal air movement Cardiovascular: regular rate and rhythm, nl pulses, edema Gastrointestinal: soft, non-tender; No distended Genitourinary - Male: No CVA tenderness Musculoskeletal: nl extremities to inspection Extremities: edema 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: [employer] II-XII intact, nl speech, nl strength Skin: nl turgor; No rash or lesions Results Result Diagram: 08/29/18 0455 08/29/18 0455 Results 24hrs Laboratory Tests Test 08/29/18 04:55 08/29/18 07:49 08/29/18 11:36 08/29/18 17:30 White Blood Count 32.7 H Red Blood Count 3.63 L Hemoglobin 11.1 L Hematocrit 31.8 L Mean Corpuscular 87.6 Volume Mean Corpuscular 30.6 Hemoglobin Mean Corpuscular 34.9 Hemoglobin Concent Red Cell 14.9 H Distribution Width Platelet Count 167 # Mean Platelet Volume 10.5 H Immature 4.900 H Granulocytes % Neutrophils % Segmented 78 H Neutrophils % (Manual) Band Neutrophils % 2 (Manual) Lymphocytes % Lymphocytes % 7 L (Manual) Reactive Lymphocytes 1 H % (Manual) Monocytes % Monocytes % (Manual) 9 Eosinophils % Eosinophils % 1 (Manual) Basophils % Metamyelocytes % 1 H (manual) Myelocytes % 1 H (Manual) Nucleated Red Blood 0.0 Cells % Immature 1.610 H Granulocytes # Neutrophils # Neutrophils # 25.7 H (Manual) Band Neutrophils # 0.6 Lymphocytes (Manual) 2.2 Lymphocytes # Reactive Lymphocytes 0.3 H # Monocytes # Monocytes # (Manual) 2.9 H Eosinophils # Basophils # Metamyelocytes # 0.3 H Myelocytes # 0.3 H Nucleated Red Blood Cells # Toxic Granulation 1+ Platelet Estimate NORMAL Giant Platelets 2 H Polychromasia 1+ Poikilocytosis 2+ Anisocytosis 2+ Prothrombin Time 20.0 H Prothrombin Time 1.6 Ratio INR International 1.69 Normalized Ratio Sodium Level 131 L Potassium Level 2.8 *L Chloride Level 101 Carbon Dioxide Level 22 Anion Gap 8 Blood Urea Nitrogen 20 Creatinine 1.14 Est Glomerular > 60 Filtrat Rate mL/min Glucose Level 92 # Calcium Level 8.2 L Total Bilirubin 2.5 H Direct Bilirubin 1.10 #H Indirect Bilirubin 1.4 H Aspartate Amino 53 H Transf (AST/SGOT) Alanine 27 Aminotransferase (AL T/SGPT) Alkaline Phosphatase 211 H Total Protein 6.6 Albumin 2.2 L Globulin 4.40 H Albumin/Globulin 0.50 Ratio Procalcitonin 5.51 H Bedside Glucose 159 112 168 Test 08/29/18 19:59 Bedside Glucose 131 Medications Medication Current Medications Ondansetron HCl (Zofran Inj) 4 mg Q6H PRN IV NAUSEA AND/OR VOMITING; Start 08/25/18 at 20:00 Albuterol (Proventil 0.083% (Neb)) 2.5 mg Q2H RESP THERAPY PRN NEB SHORTNESS OF BREATH; Start 08/25/18 at 20:00 Ipratropium [place] (Atrovent 0.02% (Neb)) 0.5 mg Q2H RESP THERAPY PRN NEB SHORTNESS OF BREATH; Start 08/25/18 at 20:00 Acetaminophen (Tylenol Liquid) 650 mg Q6H PRN PO PAIN LEVEL 1-3 OR FEVER Last administered on 08/27/18at 21:52; Admin Dose 650 MG; Start 08/25/18 at 20:00 Morphine Sulfate (morphine) 1 mg Q4H PRN IV PAIN LEVEL 7-10; Start 08/25/18 at 20:00 Lactulose (Enulose) 20 gm Q6 PO Last administered on 08/30/18at 00:02; Admin Dose 20 GM; Start 08/26/18 at 06:00 Potassium Chloride 50 ml @ 50 mls/hr K PROTOCOL PRN IVPB PENDING LAB VALUE Last administered on 08/26/18at 17:23; Admin Dose 50 MLS/HR; Start 08/26/18 at 04:30 Miscellaneous Information 1 ea NOTE XX ; Start 08/26/18 at 05:00 Glucose (Glutose) 15 gm Q15M PRN PO DECREASED GLUCOSE; Start 08/26/18 at 05:00 Glucose (Glutose) 22.5 gm Q15M PRN PO DECREASED GLUCOSE; Start 08/26/18 at 05:00 Dextrose (D50w Syringe) 25 ml Q15M PRN IV DECREASED GLUCOSE; Start 08/26/18 at 05:00 Dextrose (D50w Syringe) 50 ml Q15M PRN IV DECREASED GLUCOSE; Start 08/26/18 at 05:00 Glucagon (Glucagen) 1 mg Q15M PRN IM DECREASED GLUCOSE; Start 08/26/18 at 05:00 Glucose (Glutose) 15 gm Q15M PRN BUCCAL DECREASED GLUCOSE; Start 08/26/18 at 05:00 Folic Acid (Folic Acid) 1 mg DAILY PO Last administered on 08/29/18at 08:17; Admin Dose 1 MG; Start 08/26/18 at 09:00 Multivitamins Therapeutic (Theragran) 1 tab DAILY PO Last administered on 08/29/18at 08:17; Admin Dose 1 TAB; Start 08/26/18 at 09:00 Thiamine HCl (Vitamin B1) 100 mg DAILY PO Last administered on 08/29/18at 08:17; Admin Dose 100 MG; Start 08/26/18 at 09:00 Insulin Aspart (Novolog Insulin Pen) NOVOLOG *MODERATE* ALGORITHM WITH MEALS BEDTIME SC Last administered on 08/29/18 17:36; Admin Dose 2 UNIT; Start 08/26/18 at 11:30 Famotidine (Pepcid) 20 mg DAILY PO Last administered on 08/29/18 08:17; Admin Dose 20 MG; Start 08/27/18 at 09:00 Piperacillin Sod/ Tazobactam Sod 100 ml @ 200 mls/hr Q6 IVPB Last administered on 08/30/18at 00:02; Admin Dose 200 MLS/HR; Start 08/27/18 at 12:00 Insulin Glargine (Lantus) 20 units DAILY@2000 SC Last administered on 08/29/18at 20:36; Admin Dose 20 UNITS; Start 08/27/18 at 20:00 Simethicone (Mylicon) 80 mg Q8 PRN PO DISTENSION/GAS/BLOATING Last administered on 08/27/18at 21:52; Admin Dose 80 MG; Start 08/27/18 at 21:00 Potassium Chloride (Klor-Con 20) 60 meq DAILY PO Last administered on 08/29/18 08:17; Admin Dose 60 MEQ; Start 08/29/18 at 09:00 ZAINAB WASHBURN M.D. Aug 30, 2018 00:50
[2018-08-30] MEDS: LEVOFLOXACIN 500MG/D5W (PMX) 100 ML IVPB SCH (01:42)
[2018-08-30] MEDS: INSULIN ASPART [NOVOLOG] 3 ML PEN SC SCH ×4 (08:00→21:00)
[2018-08-30] MEDS: MULTIVITAMINS THERAPEUTIC TAB PO SCH (08:18)
[2018-08-30] MEDS: FAMOTIDINE 20 MG TAB PO SCH (08:18)
[2018-08-30] MEDS: THIAMINE 100 MG TAB PO SCH (08:19)
[2018-08-30] MEDS: POTASSIUM CHLORIDE (SR) 20 MEQ TAB PO SCH (08:19)
[2018-08-30] MEDS: FOLIC ACID 1 MG TAB PO SCH (08:19)
--- NOTE | 2018-08-30 09:15 | PN ---
DATE: 08/30/2018 SUBJECTIVE: The patient is stable, no events overnight. OBJECTIVE: VITAL SIGNS: Blood pressure is 115/78, pulse 96, respirations 22, temperature 98.0. HEENT: Head is normocephalic. NECK: Supple. HEART: Regular rate. LUNGS: Show diminished breath sounds at the base. ABDOMEN: Soft, nontender to palpation without rebound or guarding. EXTREMITIES: Negative for clubbing, cyanosis, no edema. DERMATOLOGIC: No rashes. MUSCULOSKELETAL: No joint effusion. NEUROLOGIC: No change in exam. MEDICATIONS: Reviewed. LABORATORY DATA: Reviewed. ASSESSMENT AND PLAN: 1. Nonoliguric acute kidney injury with previous baseline creatinine of 1.1 and 1.2 mg/dL. Etiology of acute kidney injury is secondary to hemodynamics. Monitor the patient. The patient's renal func tion has improved with IV fluids. At this point, continue current treatment plan, supportive care, r enally dose all medications. We will continue to monitor. 2. Hypokalemia. Replete with potassium chloride. 3. Hypernatremia. The patient's sodium levels are improving. Continue to monitor. 4. Metabolic acidosis, resolved. 5. Anemia. Monitor hemoglobin and hematocrit levels. 6. Mineral bone disorder. Monitor calcium and phosphorus levels. 7. Diabetes. Continue current insulin regimen. 8. Sepsis secondary to urinary tract infection, bacteremia. Continue current antibiotic regimen. 9. History of ETOH abuse. Dictated By: EMILY CARLSON DO NR/NTS Conf#: [id number] DID#: [id number] CC: JONN SEAY MD; ZAINAB WASHBURN MD; APRIL SALAZAR MD;*EndCC*
--- NOTE | 2018-08-30 12:38 | PN ---
Date/Time of Note Date/Time of Note DATE: 08/30/18 TIME: 12:25 Assessment/Plan VTE Prophylaxis Risk score (from Nsg)>0 risk: 4 SCD applied (from Nsg): Yes Pharmacological prophylaxis: other Lines/Catheters IV Catheter Type (from Nrsg): Peripheral IV Urinary Cath still in place: No Assessment/Plan Hospital Course S: Patient eating food, no acute events overnight, seen by renal and ID team earlier today. O: VS- see below PE: General: Lying in bed, no acute distress HEENT: Atraumatic, normocephalic. The pupils are equal, round and reactive. Extraocular motor are intact, mucous membranes moist Neck: Supple with full range of motion. No rigidity or meningismus Chest: Nontender Lungs: Clear to auscultation bilaterally no crackles rales or wheezing Heart: Normal S1-S2, Regular rhythm and rate. No murmur, S3, or S4 Abdomen: Soft , nontender, mildly distended abdomen/ascites, bowel sounds are present. No guarding no rebound tenderness , Extremities: No lower exam edema bilaterally Assessment/Plan: 38 yo man with newly diagnosed diabetes and history of alcoholic hepatitis presents with UTI in hyperosmolar hyperglycemic state. #Diabetes mellitus- newly diagnosed A1c 10.2. -Patient also presented with hyperglycemia. Sugars improved now -Continue insulin sliding scale and glargine qhs. -Anticipate need for discharge on glargine qhs. -Follow-up recommendations from diabetic teaching. # Severe sepsis: Slowly resolving- Not requiring pressors- Probably due to UTI- Blood, urine cultures growing hernandes-sensitive E coli -Per ID team, continue Levaquin for now, they recommend echocardiogram to e valuate for endocarditis, as well as checking HIV screen, repeat procalcitonin, repeat lactic acid, lipase, AFP, PSA -Follow-up repeat blood culture results, and BMP and CBC from today -Per ID team, consider hematology oncology consult given leukocytosis and immature granulocytes presents. #Hypokalemia- Requiring daily PO and IV replacement- Patient is on lactulose having 3 bowel movements per day. -Monitor, replete as needed -Regarding lactulose, given depressed mental status and confusion on admission, will recheck ammonia now, continue lactulose for now # Acute encephalopathy: Resolved now- Probably was due to metabolic state. -Monitor #Hyponatremia - Resolved, monitor # history of alcoholic hepatitis with likely early cirrhosis: - Previous imaging studies to show signs of possible early cirrhosis. - No ascites -Monitor DVT GI prophylaxis: SCDs, H2 nicole Dispo: Maintain on telemetry for rising WBC and [id number] hypokal emia. Result Diagram: 08/29/18 0455 08/29/18 0455 Results 24hrs Laboratory Tests Test 08/29/18 17:30 08/29/18 19:59 08/30/18 05:19 08/30/18 07:34 Urine Osmolality 274 Urine Random Sodium < 13 L Bedside Glucose 168 131 81 Prothrombin Time 19.6 H Prothrombin Time 1.5 Ratio INR International 1.65 Normalized Ratio Lactic Acid Level 1.6 Lipase 335 H Alpha Fetoprotein 4.18 Prostate Specific 1.1 Antigen Procalcitonin 4.88 H HIV (1&2) Antibody NEGATIVE Test 08/30/18 11:44 Bedside Glucose 75 Exam/Review of Systems Exam Vitals Vital Signs Date Temp Pulse Resp B/P (MAP) Pulse Ox O2 O2 Flow FiO2 Time Delivery Rate 08/30/18 97.6 91 22 113/81 96 11:09 (92) 08/30/18 Room Air 07:20 Intake and Output 08/29/18 08/29/18 08/30/18 1515:00 23:00 07:00 IntakeIntake Total 3000 ml 900 ml BalanceBalance 3000 ml 900 ml Results Results 24hrs Laboratory Tests Test 08/29/18 17:30 08/29/18 19:59 08/30/18 05:19 08/30/18 07:34 Urine Osmolality 274 Urine Random Sodium < 13 L Bedside Glucose 168 131 81 Prothrombin Time 19.6 H Prothrombin Time 1.5 Ratio INR International 1.65 Normalized Ratio Lactic Acid Level 1.6 Lipase 335 H Alpha Fetoprotein 4.18 Prostate Specific 1.1 Antigen Procalcitonin 4.88 H HIV (1&2) Antibody NEGATIVE Test 08/30/18 11:44 Bedside Glucose 75 Medications Medication Current Medications Ondansetron HCl (Zofran Inj) 4 mg Q6H PRN IV NAUSEA AND/OR VOMITING; Start 08/25/18 at 20:00 Albuterol (Proventil 0.083% (Neb)) 2.5 mg Q2H RESP THERAPY PRN NEB SHORTNESS OF BREATH; Start 08/25/18 at 20:00 Ipratropium [place] (Atrovent 0.02% (Neb)) 0.5 mg Q2H RESP THERAPY PRN NEB SHORTNESS OF BREATH; Start 08/25/18 at 20:00 Acetaminophen (Tylenol Liquid) 650 mg Q6H PRN PO PAIN LEVEL 1-3 OR FEVER Last administered on 08/30/18at 00:45; Admin Dose 650 MG; Start 08/25/18 at 20:00 Morphine Sulfate (morphine) 1 mg Q4H PRN IV PAIN LEVEL 7-10; Start 08/25/18 at 20:00 Lactulose (Enulose) 20 gm Q6 PO Last administered on 08/30/18at 12:16; Admin Dose 20 GM; Start 08/26/18 at 06:00 Potassium Chloride 50 ml @ 50 mls/hr K PROTOCOL PRN IVPB PENDING LAB VALUE Last administered on 08/26/18at 17:23; Admin Dose 50 MLS/HR; Start 08/26/18 at 04:30 Miscellaneous Information 1 ea NOTE XX ; Start 08/26/18 at 05:00 Glucose (Glutose) 15 gm Q15M PRN PO DECREASED GLUCOSE; Start 08/26/18 at 05:00 Glucose (Glutose) 22.5 gm Q15M PRN PO DECREASED GLUCOSE; Start 08/26/18 at 05:00 Dextrose (D50w Syringe) 25 ml Q15M PRN IV DECREASED GLUCOSE; Start 08/26/18 at 05:00 Dextrose (D50w Syringe) 50 ml Q15M PRN IV DECREASED GLUCOSE; Start 08/26/18 at 05:00 Glucagon (Glucagen) 1 mg Q15M PRN IM DECREASED GLUCOSE; Start 08/26/18 at 05:00 Glucose (Glutose) 15 gm Q15M PRN BUCCAL DECREASED GLUCOSE; Start 08/26/18 at 05:00 Folic Acid (Folic Acid) 1 mg DAILY PO Last administered on 08/30/18at 08:19; Admin Dose 1 MG; Start 08/26/18 at 09:00 Multivitamins Therapeutic (Theragran) 1 tab DAILY PO Last administered on 08/30/18at 08:18; Admin Dose 1 TAB; Start 08/26/18 at 09:00 Thiamine HCl (Vitamin B1) 100 mg DAILY PO Last administered on 08/30/18at 08:19; Admin Dose 100 MG; Start 08/26/18 at 09:00 Insulin Aspart (Novolog Insulin Pen) NOVOLOG *MODERATE* ALGORITHM WITH MEALS BEDTIME SC Last administered on 08/29/18 17:36; Admin Dose 2 UNIT; Start 08/26/18 at 11:30 Famotidine (Pepcid) 20 mg DAILY PO Last administered on 08/30/18 08:18; Admin Dose 20 MG; Start 08/27/18 at 09:00 Insulin Glargine (Lantus) 20 units DAILY@2000 SC Last administered on 08/29/18 20:36; Admin Dose 20 UNITS; Start 08/27/18 at 20:00 Simethicone (Mylicon) 80 mg Q8 PRN PO DISTENSION/GAS/BLOATING Last administered on 08/27/18at 21:52; Admin Dose 80 MG; Start 08/27/18 at 21:00 Potassium Chloride (Klor-Con 20) 60 meq DAILY PO Last administered on 08/30/18 08:19; Admin Dose 60 MEQ; Start 08/29/18 at 09:00 Levofloxacin/ Dextrose 100 ml @ 100 mls/hr Q24H IVPB Last administered on 08/30/18at 01:42; Admin Dose 100 MLS/HR; Start 08/30/18 at 01:30 ALIS FINE Aug 30, 2018 12:38
--- NOTE | 2018-08-30 14:34 | CONS ---
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 Patient reports that he has been vomiting nonbilious for the last 3 days. He was treated in the ICU for sepsis due to UTI. We are asked to see him for persistent leukocytosis. Laboratory Tests Test 08/29/18 04:55 Blood Urea Nitrogen 20 mg/dl Carbon Dioxide Level 22 mmol/L Chloride Level 101 mmol/L Creatinine 1.14 mg/dl Glucose Level 92 mg/dl Hematocrit 31.8 % Hemoglobin 11.1 g/dl Platelet Count 167 10^3/UL Potassium Level 2.8 mmol/L Sodium Level 131 mmol/L White Blood Count 32.7 10^3/ul Constitutional: poor po Eyes: no complaints ENT: no complaints Respiratory: no complaints; No pain, No cough, No pleuritic pain, No shortness of breath, No sputum, No wheezing, No other Cardiovascular: no complaints Gastrointestinal: no complaints Genitourinary: no complaints Musculoskeletal: no complaints Skin: no complaints Neurologic: no complaints Endocrine: no complaints Lymphatic: no complaints Past Medical History Medical History: diabetes, hepatitis (alcoholic and fatty), pancreatitis, renal disease, urinary tract infection, other (bacteremia) Home Meds Reported Medications Ferrous Sulfate* (Ferrous Sulfate*) 325 Mg Tabec, 325 MG PO DAILY, TAB 08/25/18 Lorazepam* (Lorazepam*) 1 Mg Tablet, 1 MG PO Q12H PRN for ANXIETY for 15 Days, #30 08/25/18 Cholecalciferol* (Vitamin D*) 400 Unit Tablet, 800 UNIT PO DAILY, TAB 06/24/17 Medications Current Medications Ondansetron HCl (Zofran Inj) 4 mg Q6H PRN IV NAUSEA AND/OR VOMITING; Start 08/25/18 at 20:00 Albuterol (Proventil 0.083% (Neb)) 2.5 mg Q2H RESP THERAPY PRN NEB SHORTNESS OF BREATH; Start 08/25/18 at 20:00 Ipratropium [place] (Atrovent 0.02% (Neb)) 0.5 mg Q2H RESP THERAPY PRN NEB SHORTNESS OF BREATH; Start 08/25/18 at 20:00 Acetaminophen (Tylenol Liquid) 650 mg Q6H PRN PO PAIN LEVEL 1-3 OR FEVER Last administered on 08/30/18at 00:45; Admin Dose 650 MG; Start 08/25/18 at 20:00 Morphine Sulfate (morphine) 1 mg Q4H PRN IV PAIN LEVEL 7-10; Start 08/25/18 at 20:00 Lactulose (Enulose) 20 gm Q6 PO Last administered on 08/30/18at 12:16; Admin Dose 20 GM; Start 08/26/18 at 06:00 Potassium Chloride 50 ml @ 50 mls/hr K PROTOCOL PRN IVPB PENDING LAB VALUE Last administered on 08/26/18at 17:23; Admin Dose 50 MLS/HR; Start 08/26/18 at 04:30 Miscellaneous Information 1 ea NOTE XX ; Start 08/26/18 at 05:00 Glucose (Glutose) 15 gm Q15M PRN PO DECREASED GLUCOSE; Start 08/26/18 at 05:00 Glucose (Glutose) 22.5 gm Q15M PRN PO DECREASED GLUCOSE; Start 08/26/18 at 05:00 Dextrose (D50w Syringe) 25 ml Q15M PRN IV DECREASED GLUCOSE; Start 08/26/18 at 05:00 Dextrose (D50w Syringe) 50 ml Q15M PRN IV DECREASED GLUCOSE; Start 08/26/18 at 05:00 Glucagon (Glucagen) 1 mg Q15M PRN IM DECREASED GLUCOSE; Start 08/26/18 at 05:00 Glucose (Glutose) 15 gm Q15M PRN BUCCAL DECREASED GLUCOSE; Start 08/26/18 at 05 :00 Folic Acid (Folic Acid) 1 mg DAILY PO Last administered on 08/30/18at 08:19; Admin Dose 1 MG; Start 08/26/18 at 09:00 Multivitamins Therapeutic (Theragran) 1 tab DAILY PO Last administered on 08/14 08:18; Admin Dose 1 TAB; Start 08/26/18 at 09:00 Thiamine HCl (Vitamin B1) 100 mg DAILY PO Last administered on 08/30/18at 08:19; Admin Dose 100 MG; Start 08/26/18 at 09:00 Insulin Aspart (Novolog Insulin Pen) NOVOLOG *MODERATE* ALGORITHM WITH MEALS BEDTIME SC Last administered on 08/29/18at 17:36; Admin Dose 2 UNIT; Start 08/26/18 at 11:30 Famotidine (Pepcid) 20 mg DAILY PO Last administered on 08/30/18 08:18; Admin Dose 20 MG; Start 08/27/18 at 09:00 Insulin Glargine (Lantus) 20 units DAILY@2000 SC Last administered on 08/29/18at 20:36; Admin Dose 20 UNITS; Start 08/27/18 at 20:00 Simethicone (Mylicon) 80 mg Q8 PRN PO DISTENSION/GAS/BLOATING Last administered on 08/27/18at 21:52; Admin Dose 80 MG; Start 08/27/18 at 21:00 Potassium Chloride (Klor-Con 20) 60 meq DAILY PO Last administered on 08/30/18at 08:19; Admin Dose 60 MEQ; Start 08/29/18 at 09:00 Levofloxacin/ Dextrose 100 ml @ 100 mls/hr Q24H IVPB Last administered on 08/30/18at 01:42; Admin Dose 100 MLS/HR; Start 08/30/18 at 01:30 Allergies: Coded Allergies: No Known Allergy (Unverified , 08/25/18) Social History Alcohol Use: heavy Smoking Status: Never smoker Drug Use: marijuana Exam/Review of Systems Exam Vitals Vital Signs Date Temp Pulse Resp B/P (MAP) Pulse Ox O2 O2 Flow FiO2 Time Delivery Rate 08/30/18 90 12:01 08/30/18 97.6 22 113/81 96 11:09 (92) 08/30/18 Room Air 07:20 Intake and Output 08/29/18 08/29/18 08/30/18 1515:00 23:00 07:00 IntakeIntake Total 3000 ml 900 ml BalanceBalance 3000 ml 900 ml Constitutional: alert, oriented, frail Psych: no complaints, nl mood/affect Head: normocephalic, atraumatic Eyes: icteric ENMT: nl external ears & nose, nl lips & teeth, nl nasal mucosa & septum Neck: supple, non-tender Gastrointestinal: hepatomegaly Results Result Diagram: 08/29/18 0455 08/29/18 0455 Results 24hrs Laboratory Tests Test 08/29/18 17:30 08/29/18 19:59 08/30/18 05:19 08/30/18 07:34 Urine Osmolality 274 Urine Random Sodium < 13 L Bedside Glucose 168 131 81 Prothrombin Time 19.6 H Prothrombin Time 1.5 Ratio INR International 1.65 Normalized Ratio Lactic Acid Level 1.6 Lipase 335 H Alpha Fetoprotein 4.18 Prostate Specific 1.1 Antigen Procalcitonin 4.88 H HIV (1&2) Antibody NEGATIVE Test 08/30/18 11:44 Bedside Glucose 75 Medications Medication Current Medications Ondansetron HCl (Zofran Inj) 4 mg Q6H PRN IV NAUSEA AND/OR VOMITING; Start 08/25/18 at 20:00 Albuterol (Proventil 0.083% (Neb)) 2.5 mg Q2H RESP THERAPY PRN NEB SHORTNESS OF BREATH; Start 08/25/18 at 20:00 Ipratropium [place] (Atrovent 0.02% (Neb)) 0.5 mg Q2H RESP THERAPY PRN NEB SHORTNESS OF BREATH; Start 08/25/18 at 20:00 Acetaminophen (Tylenol Liquid) 650 mg Q6H PRN PO PAIN LEVEL 1-3 OR FEVER Last administered on 08/30/18at 00:45; Admin Dose 650 MG; Start 08/25/18 at 20:00 Morphine Sulfate (morphine) 1 mg Q4H PRN IV PAIN LEVEL 7-10; Start 08/25/18 at 20:00 Lactulose (Enulose) 20 gm Q6 PO Last administered on 08/30/18at 12:16; Admin Dose 20 GM; Start 08/26/18 at 06:00 Potassium Chloride 50 ml @ 50 mls/hr K PROTOCOL PRN IVPB PENDING LAB VALUE Last administered on 08/26/18at 17:23; Admin Dose 50 MLS/HR; Start 08/26/18 at 04:30 Miscellaneous Information 1 ea NOTE XX ; Start 08/26/18 at 05:00 Glucose (Glutose) 15 gm Q15M PRN PO DECREASED GLUCOSE; Start 08/26/18 at 05:00 Glucose (Glutose) 22.5 gm Q15M PRN PO DECREASED GLUCOSE; Start 08/26/18 at 05:00 Dextrose (D50w Syringe) 25 ml Q15M PRN IV DECREASED GLUCOSE; Start 08/26/18 at 05:00 Dextrose (D50w Syringe) 50 ml Q15M PRN IV DECREASED GLUCOSE; Start 08/26/18 at 05:00 Glucagon (Glucagen) 1 mg Q15M PRN IM DECREASED GLUCOSE; Start 08/26/18 at 05:00 Glucose (Glutose) 15 gm Q15M PRN BUCCAL DECREASED GLUCOSE; Start 08/26/18 at 05:00 Folic Acid (Folic Acid) 1 mg DAILY PO Last administered on 08/30/18at 08:19; Admin Dose 1 MG; Start 08/26/18 at 09:00 Multivitamins Therapeutic (Theragran) 1 tab DAILY PO Last administered on 08/30/18at 08:18; Admin Dose 1 TAB; Start 08/26/18 at 09:00 Thiamine HCl (Vitamin B1) 100 mg DAILY PO Last administered on 08/30/18at 08:19; Admin Dose 100 MG; Start 08/26/18 at 09:00 Insulin Aspart (Novolog Insulin Pen) NOVOLOG *MODERATE* ALGORITHM WITH MEALS BEDTIME SC Last administered on 08/29/18at 17:36; Admin Dose 2 UNIT; Start 08/26/18 at 11:30 Famotidine (Pepcid) 20 mg DAILY PO Last administered on 08/30/18at 08:18; Admin Dose 20 MG; Start 08/27/18 at 09:00 Insulin Glargine (Lantus) 20 units DAILY@2000 SC Last administered on 08/29/18at 20:36; Admin Dose 20 UNITS; Start 08/27/18 at 20:00 Simethicone (Mylicon) 80 mg Q8 PRN PO DISTENSION/GAS/BLOATING Last administered on 08/27/18at 21:52; Admin Dose 80 MG; Start 08/27/18 at 21:00 Potassium Chloride (Klor-Con 20) 60 meq DAILY PO Last administered on 08/30/18at 08:19; Admin Dose 60 MEQ; Start 08/29/18 at 09:00 Levofloxacin/ Dextrose 100 ml @ 100 mls/hr Q24H IVPB Last administered on 08/30/18at 01:42; Admin Dose 100 MLS/HR; Start 08/30/18 at 01:30 CHRISTIAN HERNANDES Aug 30, 2018 14:34
--- NOTE | 2018-08-30 16:07 | RADRPT ---
Echocardiogram Report Patient Name: DELIO CALDERONPatient ID: [id number] : 1980 (38y 3m)Study Date: 08/30/2018 1:40:08 PM Gender: MAccession #: [id number] Tech: Christian Enciso [facility] Location: 623- Ref.Physician: ALIS FINE Height(Cm): BSA: Weight(Kg): Quality: AdequateOrder Physician: ALIS FINE Account #: Procedures: Echocardiographic Report: Transthoracic echocardiogram with complete 2D, M-Mode, and doppler examination. Indications: R/o Endocarditis. Measurements: 2D/M Mode Doppler Measurement Value Normal Range Measurement Value Normal Range LVIDd 2D 4.1 [ 4.2 - 5.8 ] cm AV Peak [place] 1.4 [ 100.0 - 170.0 ] cm/sec LVIDs 2D 3.0 [ 2.5 - 4.0 ] cm AV Peak PG 8.0 [ 2.0 - 9.0 ] mmHg LVPWd 2D 1.1 [ 0.6 - 1.0 ] cm LVOT Peak [place] 0.8 [ 70.0 - 110.0 ] cm/sec IVSd 2D 1.1 [ 0.6 - 1.0 ] cm LVOT Peak PG 3.0 [ 2.0 - 6.0 ] mmHg AoR Diam 2D 2.3 [ 2.6 - 3.4 ] cm MV E Peak [place] 0.7 [ 60.0 - 130.0 ] cm/sec EDV 2D 75.5 [ 62.0 - 150.0 ] ml MV A Peak [place] 0.7 [ 100.0 - 120.0 ] cm/sec ESV 2D 33.6 [ 21.0 - 61.0 ] ml MV E/A 1.0 [ 0.8 - 1.5 ] ratio EF 2D 55.5 [ 52.0 - 72.0 ] percent MV Decel Time 149 [ 104 - 258 ] msec LA Dimen 2D 4.1 [ 3.0 - 4.0 ] cm Lat E` Landon 0.1 [ 10.0 - 15.0 ] cm/sec Lateral E/E` 5.3 [ 1.0 - 2.0 ] ratio Med E` Landon 0.1 cm/sec MV E/A 1.0 [ 0.8 - 1.5 ] ratio TR Peak [place]andon 2.0 [ 100.0 - 280.0 ] cm/sec TR Peak PG 16.0 mmHg RVSP 26.0 [ 10.0 - 36.0 ] mmHg Findings: Left Ventricle: Normal left ventricular systolic function. Normal left ventricular cavity size. Left ventricular wall thickness upper limits of normal. Ejection fraction is visually estimated at 55 %. Tissue Doppler/Mitral Doppler indices are consistent with impaired relaxation (Stage I diastolic dysfunction). Right Ventricle: Normal right ventricular size. Normal right ventricular systolic function. Left Atrium: There is mild enlargement of left atrium. Right Atrium: The right atrium is normal in size. Mitral Valve: Mild mitral leaflet calcification. Mild mitral annular calcification. Trace mitral regurgitation. No evidence of endocarditis. Aortic Valve: No significant aortic stenosis or insufficiency. Aortic cusps appear mildly calcified. Tricuspid Valve: Normal appearance of the tricuspid valve. The estimated Peak RVSP is 26 mmHg. There is trace tricuspid regurgitation. No evidence of endocarditis. Pulmonic Valve: Pulmonic valve not well visualized. Pericardium: Trivial pericardial effusion. Left pleural effusion seen. Aorta: Normal aortic root. IVC: Normal size with poor respiratory collapse consistent with elevated right atrial pressure. Conclusions: Normal left ventricular systolic function. Normal left ventricular cavity size. Left ventricular wall thickness upper limits of normal. Ejection fraction is visually estimated at 55 %. Tissue Doppler/Mitral Doppler indices are consistent with impaired relaxation (Stage I diastolic dysfunction). Mild mitral leaflet calcification. Mild mitral annular calcification. Trace mitral regurgitation. No evidence of endocarditis. No significant aortic stenosis or insufficiency. Aortic cusps appear mildly calcified. Normal appearance of the tricuspid valve. The estimated Peak RVSP is 26 mmHg. There is trace tricuspid regurgitation. No evidence of endocarditis. Electronically Signed By: Jim Daly 2018-08-30 16:05:49 PDT
--- NOTE | 2018-08-30 18:39 | CONS ---
Assessment/Plan Assessment/Plan Hospital Course (Demo Recall) assessment/impression - leukocytosis: reactive process to recurrent UTI and bacteremia. his persistent leukocytosis probably represents deep seated infection due to E. coli because his WBC level has remained elevated since 06/2018 and Pt has had the same infections (UTI and bacteremia) caused by the same bacteria (E. coli). - recurrent UTI and bacteremia with the same species of bacteria: concerning for deep seated infection/source. In particular, prostate and heart. Gallbladder may be considered but Pt does not have symptoms that are referable to RUQ - transthoracic echo on 08/30/2018 was negative for e/o endocarditis - the presence of immature granulocytes, a reactive process - unintentional 15 lb weight loss: could reflect on-going (occult/deep seated) infection but also his alcoholic hepatitis - severe sepsis (leukocytosis, tachycardia, RR>20 and lactic acid>4) due to bacteremia and UTI - recurrent TORIBIO - hepatic encephalopathy on presentatio. 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 Pt previously took pip/tazo (08/24/2018-08/29/2018) - I appreciate hematology consult management d/w Pt, his fiancee and mother Consultation Date/Type/Reason Admit Date/Time Aug 25, 2018 at 19:52 Initial Consult Date 08/29/18 Type of Consult ID Requesting Provider: JONN SEAY MD Date/Time of Note DATE: 08/30/18 TIME: 18:35 24 HR Interval Summary Constitutional: no complaints, improved Detailed Summary Eyes: no complaints ENT: no complaints Respiratory: no complaints Cardiovascular: no complaints Gastrointestinal: no complaints Genitourinary: no complaints Musculoskeletal: no complaints Skin: no complaints Neurologic: no complaints Exam/Review of Systems Exam Vitals Vital Signs Date Temp Pulse Resp B/P (MAP) Pulse Ox O2 O2 Flow FiO2 Time Delivery Rate 08/30/18 95 16:01 08/30/18 98.0 21 110/76 96 Room Air 15:36 (87) Intake and Output 08/29/18 08/29/18 08/30/18 1515:00 23:00 07:00 IntakeIntake Total 3000 ml 900 ml BalanceBalance 3000 ml 900 ml Constitutional: alert, oriented, well developed Psych: no complaints, nl mood/affect Head: normocephalic, atraumatic Eyes: nl conjunctiva, nl lids, icteric ENMT: nl external ears & nose, nl nasal mucosa & septum, mucosa pink and moist Neck: supple, non-tender Respiratory: clear to auscultation, normal air movement Cardiovascular: regular rate and rhythm, nl pulses Gastrointestinal: soft, non-tender, distended Musculoskeletal: nl extremities to inspection Extremities: No edema 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: ASSET PROTECTION ASSOCIATE II-XII intact, nl mental status, nl speech, nl strength Skin: nl turgor; No rash or lesions Results Result Diagram: 08/30/18 1429 08/30/18 1429 Results 24hrs Laboratory Tests Test 08/29/18 19:59 08/30/18 05:19 08/30/18 07:34 08/30/18 11:44 Bedside Glucose 131 81 75 Prothrombin Time 19.6 H Prothrombin Time 1.5 Ratio INR International 1.65 Normalized Ratio Lactic Acid Level 1.6 Lipase 335 H Alpha Fetoprotein 4.18 Prostate Specific 1.1 Antigen Procalcitonin 4.88 H HIV (1&2) Antibody NEGATIVE Test 08/30/18 14:29 White Blood Count 21.9 #H Red Blood Count 3.62 L Hemoglobin 10.9 L Hematocrit 33.1 L Mean Corpuscular 91.4 Volume Mean Corpuscular 30.1 Hemoglobin Mean Corpuscular 32.9 Hemoglobin Concent Red Cell 15.5 H Distribution Width Platelet Count 160 Mean Platelet Volume 10.1 Immature 4.600 H Granulocytes % Neutrophils % 74.4 Lymphocytes % 9.0 L Monocytes % 10.5 Eosinophils % 1.0 Basophils % 0.5 Nucleated Red Blood 0.0 Cells % Immature 1.010 H Granulocytes # Neutrophils # 16.3 H Lymphocytes # 2.0 Monocytes # 2.3 H Eosinophils # 0.2 Basophils # 0.1 Nucleated Red Blood 0.0 Cells # Sodium Level 132 L Potassium Level 4.3 Chloride Level 104 Carbon Dioxide Level 21 Anion Gap 7 Blood Urea Nitrogen 18 Creatinine 1.16 Est Glomerular > 60 Filtrat Rate mL/min Glucose Level 108 Calcium Level 8.1 L Ammonia < 9 #L Medications Medication Current Medications Ondansetron HCl (Zofran Inj) 4 mg Q6H PRN IV NAUSEA AND/OR VOMITING; Start 08/25/18 at 20:00 Albuterol (Proventil 0.083% (Neb)) 2.5 mg Q2H RESP THERAPY PRN NEB SHORTNESS OF BREATH; Start 08/25/18 at 20:00 Ipratropium [place] (Atrovent 0.02% (Neb)) 0.5 mg Q2H RESP THERAPY PRN NEB SHORTNESS OF BREATH; Start 08/25/18 at 20:00 Acetaminophen (Tylenol Liquid) 650 mg Q6H PRN PO PAIN LEVEL 1-3 OR FEVER Last administered on 08/30/18at 00:45; Admin Dose 650 MG; Start 08/25/18 at 20:00 Morphine Sulfate (morphine) 1 mg Q4H PRN IV PAIN LEVEL 7-10; Start 08/25/18 at 20:00 Lactulose (Enulose) 20 gm Q6 PO Last administered on 08/30/18at 12:16; Admin Dose 20 GM; Start 08/26/18 at 06:00 Potassium Chloride 50 ml @ 50 mls/hr K PROTOCOL PRN IVPB PENDING LAB VALUE Last administered on 08/26/18at 17:23; Admin Dose 50 MLS/HR; Start 08/26/18 at 04:30 Miscellaneous Information 1 ea NOTE XX ; Start 08/26/18 at 05:00 Glucose (Glutose) 15 gm Q15M PRN PO DECREASED GLUCOSE; Start 08/26/18 at 05:00 Glucose (Glutose) 22.5 gm Q15M PRN PO DECREASED GLUCOSE; Start 08/26/18 at 05:00 Dextrose (D50w Syringe) 25 ml Q15M PRN IV DECREASED GLUCOSE; Start 08/26/18 at 05:00 Dextrose (D50w Syringe) 50 ml Q15M PRN IV DECREASED GLUCOSE; Start 08/26/18 at 05:00 Glucagon (Glucagen) 1 mg Q15M PRN IM DECREASED GLUCOSE; Start 08/26/18 at 05:00 Glucose (Glutose) 15 gm Q15M PRN BUCCAL DECREASED GLUCOSE; Start 08/26/18 at 05:00 Folic Acid (Folic Acid) 1 mg DAILY PO Last administered on 08/30/18 08:19; Admin Dose 1 MG; Start 08/26/18 at 09:00 Multivitamins Therapeutic (Theragran) 1 tab DAILY PO Last administered on 08/30/18 08:18; Admin Dose 1 TAB; Start 08/26/18 at 09:00 Thiamine HCl (Vitamin B1) 100 mg DAILY PO Last administered on 08/30/18 08:19; Admin Dose 100 MG; Start 08/26/18 at 09:00 Insulin Aspart (Novolog Insulin Pen) NOVOLOG *MODERATE* ALGORITHM WITH MEALS BEDTIME SC Last administered on 08/29/18at 17:36; Admin Dose 2 UNIT; Start 08/26/18 at 11:30 Famotidine (Pepcid) 20 mg DAILY PO Last administered on 08/30/18 08:18; Admin Dose 20 MG; Start 08/27/18 at 09:00 Insulin Glargine (Lantus) 20 units DAILY@2000 SC Last administered on 08/29/18at 20:36; Admin Dose 20 UNITS; Start 08/27/18 at 20:00 Simethicone (Mylicon) 80 mg Q8 PRN PO DISTENSION/GAS/BLOATING Last administered on 08/27/18at 21:52; Admin Dose 80 MG; Start 08/27/18 at 21:00 Potassium Chloride (Klor-Con 20) 60 meq DAILY PO Last administered on 08/30/18at 08:19; Admin Dose 60 MEQ; Start 08/29/18 at 09:00 Levofloxacin/ Dextrose 100 ml @ 100 mls/hr Q24H IVPB Last administered on 08/30/18at 01:42; Admin Dose 100 MLS/HR; Start 08/30/18 at 01:30 ZAINAB WASHBURN M.D. Aug 30, 2018 18:39
[2018-08-30] MEDS: INSULIN GLARGINE [LANTus] (100 UNITS/ML) SYG SC SCH (20:16)
[2018-08-31] VITALS (13 sets, daily range): BP systolic 102–127; BP diastolic 62–87; PULSE 96–130; RESP 20–22
[2018-08-31] MEDS: LEVOFLOXACIN 500MG/D5W (PMX) 100 ML IVPB SCH (00:49)
[2018-08-31] MEDS: LACTULOSE 30ML CUP PO SCH ×2 (00:50→05:46)
[2018-08-31] MEDS: INSULIN ASPART [NOVOLOG] 3 ML PEN SC SCH ×4 (07:52→20:41)
[2018-08-31] MEDS: MULTIVITAMINS THERAPEUTIC TAB PO SCH (08:33)
[2018-08-31] MEDS: POTASSIUM CHLORIDE (SR) 20 MEQ TAB PO SCH (08:33)
[2018-08-31] MEDS: FAMOTIDINE 20 MG TAB PO SCH (08:33)
[2018-08-31] MEDS: FOLIC ACID 1 MG TAB PO SCH (08:33)
[2018-08-31] MEDS: THIAMINE 100 MG TAB PO SCH (08:33)
[2018-08-31] MEDS ORDERED: MAGNESIUM SULFATE 1 GM/D5W 100 ML IVPB ONE (11:30)
--- NOTE | 2018-08-31 11:41 | PN ---
Date/Time of Note Date/Time of Note DATE: 08/31/18 TIME: 11:29 Assessment/Plan VTE Prophylaxis Risk score (from Nsg)>0 risk: 4 SCD applied (from Nsg): Yes Pharmacological prophylaxis: other Lines/Catheters IV Catheter Type (from Nrsg): Peripheral IV Urinary Cath still in place: No Assessment/Plan Hospital Course S: Patient complaining of some abdominal pressure and distention. Seen by hematology oncology team yesterday as well. Patient complaining of some diarrhea and refused lactulose this morning O: VS- see below PE: General: Lying in bed, no acute distress HEENT: Atraumatic, normocephalic. The pupils are equal, round and reactive. Extraocular motor are intact, mucous membranes moist Neck: Supple with full range of motion. No rigidity or meningismus Chest: Nontender Lungs: Clear to auscultation bilaterally no crackles rales or wheezing Heart: Normal S1-S2, Regular rhythm and rate. No murmur, S3, or S4 Abdomen: Soft , slightly more distended abdomen/ascites, bowel sounds are present. No guarding no rebound tenderness , Extremities: No lower exam edema bilaterally 2D echo: Conclusions: Normal left ventricular systolic function. Normal left ventricular cavity size. Left ventricular wall thickness upper limits of normal. Ejection fraction is visually estimated at 55 %. Tissue Doppler/Mitral Doppler indices are consistent with impaired relaxation (Stage I diastolic dysfunction). Mild mitral leaflet calcification. Mild mitral annular calcification. Trace mitral regurgitation. No evidence of endocarditis. No significant aortic stenosis or insufficiency. Aortic cusps appear mildly calcified. Normal appearance of the tricuspid valve. The estimated Peak RVSP is 26 mmHg. There is trace tricuspid regurgitation. No evidence of endocarditis. Assessment/Plan: 38 yo man with newly diagnosed diabetes and history of alcoholic hepatitis presents with UTI in hyperosmolar hyperglycemic state. #Diabetes mellitus- newly diagnosed A1c 10.2. -Patient also presented with hype rglycemia. Sugars much improved now -Continue insulin sliding scale and glargine qhs. -Anticipate need for discharge on glargine qhs. -Follow-up recommendations from diabetic teaching. # Severe sepsis: Slowly resolving- Not requiring pressors- Probably due to UTI- Blood, urine cultures growing hernandes-sensitive E coli -Per ID team, continue Levaquin for now, echocardiogram results reviewed, f ollow-up HIV screen, repeat procalcitonin, repeat lactic acid, lipase, AFP, PSA -Follow-up repeat blood culture results -Appreciate hematology oncology consult, follow-up results of flow cytometry. #Hypokalemia- Requiring daily PO and IV replacement-had been on 4 times daily lactulose having 3 bowel movements per day. -Monitor, replete as needed -Regarding lactulose, will cut back on this since his ammonia levels are normal now. #Abdominal distention: Likely secondary to ascites -We will order for paracentesis today # Acute encephalopathy: Resolved now- Probably was due to metabolic state. -Monitor #Hyponatremia - Resolved, monitor # history of alcoholic hepatitis with likely early cirrhosis: - Previous imaging studies to show signs of possible early cirrhosis - No ascites -Monitor DVT GI prophylaxis: SCDs, H2 nicole Result Diagram: 08/31/1851608/31/18516 Results 24hrs Laboratory Tests Test 08/30/18 11:44 08/30/18 14:29 08/30/18 18:50 08/30/18 20:02 Bedside Glucose 75 160 96 White Blood Count 21.9 #H Red Blood Count 3.62 L Hemoglobin 10.9 L Hematocrit 33.1 L Mean Corpuscular 91.4 Volume Mean Corpuscular 30.1 Hemoglobin Mean Corpuscular 32.9 Hemoglobin Concent Red Cell 15.5 H Distribution Width Platelet Count 160 Mean Platelet Volume 10.1 Immature 4.600 H Granulocytes % Neutrophils % 74.4 Lymphocytes % 9.0 L Monocytes % 10.5 Eosinophils % 1.0 Basophils % 0.5 Nucleated Red Blood 0.0 Cells % Immature 1.010 H Granulocytes # Neutrophils # 16.3 H Lymphocytes # 2.0 Monocytes # 2.3 H Eosinophils # 0.2 Basophils # 0.1 Nucleated Red Blood 0.0 Cells # Sodium Level 132 L Potassium Level 4.3 Chloride Level 104 Carbon Dioxide Level 21 Anion Gap 7 Blood Urea Nitrogen 18 Creatinine 1.16 Est Glomerular > 60 Filtrat Rate mL/min Glucose Level 108 Calcium Level 8.1 L Ammonia < 9 #L Test 08/31/18 05:17 08/31/18 07:51 White Blood Count 22.8 H Red Blood Count 3.48 L Hemoglobin 10.5 L Hematocrit 31.2 L Mean Corpuscular 89.7 Volume Mean Corpuscular 30.2 Hemoglobin Mean Corpuscular 33.7 Hemoglobin Concent Red Cell 15.8 H Distribution Width Platelet Count 170 Mean Platelet Volume 10.3 Immature 4.300 H Granulocytes % Neutrophils % 69.9 Lymphocytes % 11.6 L Monocytes % 12.4 H Eosinophils % 1.1 Basophils % 0.7 Nucleated Red Blood 0.0 Cells % Immature 0.970 H Granulocytes # Neutrophils # 16.0 H Lymphocytes # 2.6 Monocytes # 2.8 H Eosinophils # 0.3 Basophils # 0.2 H Nucleated Red Blood 0.0 Cells # Sodium Level 129 L Potassium Level 3.2 L Chloride Level 104 Carbon Dioxide Level 19 L Anion Gap 6 Blood Urea Nitrogen 15 Creatinine 0.99 Est Glomerular > 60 Filtrat Rate mL/min Glucose Level 64 #L Calcium Level 7.8 L Phosphorus Level 4.0 Magnesium Level 1.6 L Bedside Glucose 76 Exam/Review of Systems Exam Vitals Vital Signs Date Temp Pulse Resp B/P (MAP) Pulse Ox O2 O2 Flow FiO2 Time Delivery Rate 08/31/18 98.9 110 20 121/84 96 Room Air 11:25 (96) Intake and Output 08/30/18 08/30/18 08/31/18 1515:00 23:00 07:00 IntakeIntake Total 760 ml 1000 ml BalanceBalance 760 ml 1000 ml Results Results 24hrs Laboratory Tests Test 08/30/18 11:44 08/30/18 14:29 08/30/18 18:50 08/30/18 20:02 Bedside Glucose 75 160 96 White Blood Count 21.9 #H Red Blood Count 3.62 L Hemoglobin 10.9 L Hematocrit 33.1 L Mean Corpuscular 91.4 Volume Mean Corpuscular 30.1 Hemoglobin Mean Corpuscular 32.9 Hemoglobin Concent Red Cell 15.5 H Distribution Width Platelet Count 160 Mean Platelet Volume 10.1 Immature 4.600 H Granulocytes % Neutrophils % 74.4 Lymphocytes % 9.0 L Monocytes % 10.5 Eosinophils % 1.0 Basophils % 0.5 Nucleated Red Blood 0.0 Cells % Immature 1.010 H Granulocytes # Neutrophils # 16.3 H Lymphocytes # 2.0 Monocytes # 2.3 H Eosinophils # 0.2 Basophils # 0.1 Nucleated Red Blood 0.0 Cells # Sodium Level 132 L Potassium Level 4.3 Chloride Level 104 Carbon Dioxide Level 21 Anion Gap 7 Blood Urea Nitrogen 18 Creatinine 1.16 Est Glomerular > 60 Filtrat Rate mL/min Glucose Level 108 Calcium Level 8.1 L Ammonia < 9 #L Test 08/31/18 05:17 08/31/18 07:51 White Blood Count 22.8 H Red Blood Count 3.48 L Hemoglobin 10.5 L Hematocrit 31.2 L Mean Corpuscular 89.7 Volume Mean Corpuscular 30.2 Hemoglobin Mean Corpuscular 33.7 Hemoglobin Concent Red Cell 15.8 H Distribution Width Platelet Count 170 Mean Platelet Volume 10.3 Immature 4.300 H Granulocytes % Neutrophils % 69.9 Lymphocytes % 11.6 L Monocytes % 12.4 H Eosinophils % 1.1 Basophils % 0.7 Nucleated Red Blood 0.0 Cells % Immature 0.970 H Granulocytes # Neutrophils # 16.0 H Lymphocytes # 2.6 Monocytes # 2.8 H Eosinophils # 0.3 Basophils # 0.2 H Nucleated Red Blood 0.0 Cells # Sodium Level 129 L Potassium Level 3.2 L Chloride Level 104 Carbon Dioxide Level 19 L Anion Gap 6 Blood Urea Nitrogen 15 Creatinine 0.99 Est Glomerular > 60 Filtrat Rate mL/min Glucose Level 64 #L Calcium Level 7.8 L Phosphorus Level 4.0 Magnesium Level 1.6 L Bedside Glucose 76 Medications Medication Current Medications Ondansetron HCl (Zofran Inj) 4 mg Q6H PRN IV NAUSEA AND/OR VOMITING; Start 08/25/18 at 20:00 Albuterol (Proventil 0.083% (Neb)) 2.5 mg Q2H RESP THERAPY PRN NEB SHORTNESS OF BREATH; Start 08/25/18 at 20:00 Ipratropium [place] (Atrovent 0.02% (Neb)) 0.5 mg Q2H RESP THERAPY PRN NEB SHORTNESS OF BREATH; Start 08/25/18 at 20:00 Acetaminophen (Tylenol Liquid) 650 mg Q6H PRN PO PAIN LEVEL 1-3 OR FEVER Last administered on 08/30/18at 00:45; Admin Dose 650 MG; Start 08/25/18 at 20:00 Morphine Sulfate (morphine) 1 mg Q4H PRN IV PAIN LEVEL 7-10; Start 08/25/18 at 20:00 Potassium Chloride 50 ml @ 50 mls/hr K PROTOCOL PRN IVPB PENDING LAB VALUE Last administered on 08/26/18at 17:23; Admin Dose 50 MLS/HR; Start 08/26/18 at 04:30 Miscellaneous Information 1 ea NOTE XX ; Start 08/26/18 at 05:00 Glucose (Glutose) 15 gm Q15M PRN PO DECREASED GLUCOSE; Start 08/26/18 at 05:00 Glucose (Glutose) 22.5 gm Q15M PRN PO DECREASED GLUCOSE; Start 08/26/18 at 05:00 Dextrose (D50w Syringe) 25 ml Q15M PRN IV DECREASED GLUCOSE; Start 08/26/18 at 05:00 Dextrose (D50w Syringe) 50 ml Q15M PRN IV DECREASED GLUCOSE; Start 08/26/18 at 05:00 Glucagon (Glucagen) 1 mg Q15M PRN IM DECREASED GLUCOSE; Start 08/26/18 at 05:00 Glucose (Glutose) 15 gm Q15M PRN BUCCAL DECREASED GLUCOSE; Start 08/26/18 at 05:00 Folic Acid (Folic Acid) 1 mg DAILY PO Last administered on 08/31/18 08:33; Admin Dose 1 MG; Start 08/26/18 at 09:00 Multivitamins Therapeutic (Theragran) 1 tab DAILY PO Last administered on 08/31/18 08:33; Admin Dose 1 TAB; Start 08/26/18 at 09:00 Thiamine HCl (Vitamin B1) 100 mg DAILY PO Last administered on 08/31/18 08:33; Admin Dose 100 MG; Start 08/26/18 at 09:00 Insulin Aspart (Novolog Insulin Pen) NOVOLOG *MODERATE* ALGORITHM WITH MEALS BEDTIME SC Last administered on 08/29/18at 17:36; Admin Dose 2 UNIT; Start 08/26/18 at 11:30 Famotidine (Pepcid) 20 mg DAILY PO Last administered on 08/31/18 08:33; Admin Dose 20 MG; Start 08/27/18 at 09:00 Insulin Glargine (Lantus) 20 units DAILY@2000 SC Last administered on 08/30/18 20:16; Admin Dose 20 UNITS; Start 08/27/18 at 20:00 Simethicone (Mylicon) 80 mg Q8 PRN PO DISTENSION/GAS/BLOATING Last administered on 08/27/18at 21:52; Admin Dose 80 MG; Start 08/27/18 at 21:00 Potassium Chloride (Klor-Con 20) 60 meq DAILY PO Last administered on 6/18/19at 08:33; Admin Dose 60 MEQ; Start 08/29/18 at 09:00 Levofloxacin/ Dextrose 100 ml @ 100 mls/hr Q24H IVPB Last administered on 08/31/18at 00:49; Admin Dose 100 MLS/HR; Start 08/30/18 at 01:30 Magnesium Sulfate/ Dextrose 100 ml @ 100 mls/hr ONCE ONCE IVPB ; Start 08/31/18 at 11:30; Stop 08/31/18 at 12:29 ALIS FINE Aug 31, 2018 11:41
[2018-08-31] MEDS ORDERED: LIDOCAINE 1% (MPF) 5 ML VIAL ONE (15:30)
--- NOTE | 2018-08-31 16:51 | CONS ---
Assessment/Plan Assessment/Plan Hospital Course (Demo Recall) assessment/impression - severe sepsis (leukocytosis, tachycardia, RR>20 and lactic acid>4) due to bacteremia and UTI - recurrent UTI and bacteremia with the same species of bacteria: concerning for deep seated infection/source. Transthoracic echo on 08/30/2018 showed no e/o valvular vegetation - ascites, s/p paracentesis on 08/31/2018 - hepatic encephalopathy on presentation. His head CT on 08/26/2018 showing no acute abnormalities - the presence of immature granulocytes, a reactive process - unintentional 15 lb weight loss: could reflect on-going (occult/deep seated) infection but also his alcoholic hepatitis - recurrent TORIBIO - newly diagnosed with DM: Hgb A1c on 08/26/2018 was 10.2 while that on 07/01/2018 was 6.3 - nonspecific gallbladder wall thickening identified on abd CT and abd MRI in 06/2018 - alcoholic hepatitis, hepatitis ABC screen was negative in 06/2018 - smokes marijuana recommendations: - pending results: blood cultures x2 on 08/30/2018, ascetic fluid for cell count and diff, glu, protein, cultures from 08/31/2018 - continue levofloxacin (08/30/2018-) 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 Pt pre viously took pip/tazo (08/24/2018-08/29/2018) management d/w Pt, his fiancee Consultation Date/Type/Reason Admit Date/Time Aug 25, 2018 at 19:52 Initial Consult Date 08/29/18 Type of Consult ID Requesting Provider: JONN SEAY MD Date/Time of Note DATE: 08/31/18 TIME: 16:50 24 HR Interval Summary Constitutional: improved Detailed Summary Eyes: no complaints ENT: no complaints Respiratory: no complaints Cardiovascular: no complaints Gastrointestinal: no complaints, other (less distended after paracentesis and feels better) Genitourinary: no complaints Musculoskeletal: no complaints Skin: no complaints Neurologic: no complaints Exam/Review of Systems Exam Vitals Vital Signs Date Temp Pulse Resp B/P (MAP) Pulse Ox O2 O2 Flow FiO2 Time Delivery Rate 08/31/18 103 16:20 08/31/18 97.8 20 125/80 96 Room Air 15:55 (95) Intake and Output 608/30/18 08/31/18 1515:00 23:00 07:00 IntakeIntake Total 760 ml 1000 ml BalanceBalance 760 ml 1000 ml Constitutional: alert, oriented Psych: no complaints, nl mood/affect Head: normocephalic, atraumatic Eyes: nl conjunctiva, nl lids, icteric ENMT: nl external ears & nose, nl lips & teeth Neck: supple Respiratory: normal air movement Cardiovascular: edema Gastrointestinal: soft; No distended Musculoskeletal: nl extremities to inspection Extremities: pitting pedal edema 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: KILN PLACER II-XII intact, nl mental status, nl speech Skin: other (mild jaundice) Results Result Diagram: 08/31/18 0508/31/18 05 Results 24hrs Laboratory Tests Test 08/30/18 18:50 08/30/18 20:02 08/31/18 05:17 08/31/18 07:51 Bedside Glucose 160 96 76 White Blood Count 22.8 H Red Blood Count 3.48 L Hemoglobin 10.5 L Hematocrit 31.2 L Mean Corpuscular 89.7 Volume Mean Corpuscular 30.2 Hemoglobin Mean Corpuscular 33.7 Hemoglobin Concent Red Cell 15.8 H Distribution Width Platelet Count 170 Mean Platelet Volume 10.3 Immature 4.300 H Granulocytes % Neutrophils % 69.9 Lymphocytes % 11.6 L Monocytes % 12.4 H Eosinophils % 1.1 Basophils % 0.7 Nucleated Red Blood 0.0 Cells % Immature 0.970 H Granulocytes # Neutrophils # 16.0 H Lymphocytes # 2.6 Monocytes # 2.8 H Eosinophils # 0.3 Basophils # 0.2 H Nucleated Red Blood 0.0 Cells # Sodium Level 129 L Potassium Level 3.2 L Chloride Level 104 Carbon Dioxide Level 19 L Anion Gap 6 Blood Urea Nitrogen 15 Creatinine 0.99 Est Glomerular > 60 Filtrat Rate mL/min Glucose Level 64 #L Calcium Level 7.8 L Phosphorus Level 4.0 Magnesium Level 1.6 L Test 08/31/18 11:50 Bedside Glucose 108 Medications Medication Current Medications Ondansetron HCl (Zofran Inj) 4 mg Q6H PRN IV NAUSEA AND/OR VOMITING; Start 08/25/18 at 20:00 Albuterol (Proventil 0.083% (Neb)) 2.5 mg Q2H RESP THERAPY PRN NEB SHORTNESS OF BREATH; Start 08/25/18 at 20:00 Ipratropium [place] (Atrovent 0.02% (Neb)) 0.5 mg Q2H RESP THERAPY PRN NEB SHORTNESS OF BREATH; Start 08/25/18 at 20:00 Acetaminophen (Tylenol Liquid) 650 mg Q6H PRN PO PAIN LEVEL 1-3 OR FEVER Last administered on 08/30/18at 00:45; Admin Dose 650 MG; Start 08/25/18 at 20:00 Morphine Sulfate (morphine) 1 mg Q4H PRN IV PAIN LEVEL 7-10; Start 08/25/18 at 20:00 Potassium Chloride 50 ml @ 50 mls/hr K PROTOCOL PRN IVPB PENDING LAB VALUE Last administered on 08/26/18at 17:23; Admin Dose 50 MLS/HR; Start 08/26/18 at 04:30 Miscellaneous Information 1 ea NOTE XX ; Start 08/26/18 at 05:00 Glucose (Glutose) 15 gm Q15M PRN PO DECREASED GLUCOSE; Start 08/26/18 at 05:00 Glucose (Glutose) 22.5 gm Q15M PRN PO DECREASED GLUCOSE; Start 08/26/18 at 05:00 Dextrose (D50w Syringe) 25 ml Q15M PRN IV DECREASED GLUCOSE; Start 08/26/18 at 05:00 Dextrose (D50w Syringe) 50 ml Q15M PRN IV DECREASED GLUCOSE; Start 08/26/18 at 05:00 Glucagon (Glucagen) 1 mg Q15M PRN IM DECREASED GLUCOSE; Start 08/26/18 at 05:00 Glucose (Glutose) 15 gm Q15M PRN BUCCAL DECREASED GLUCOSE; Start 08/26/18 at 05:00 Folic Acid (Folic Acid) 1 mg DAILY PO Last administered on 08/31/18at 08:33; Admin Dose 1 MG; Start 08/26/18 at 09:00 Multivitamins Therapeutic (Theragran) 1 tab DAILY PO Last administered on 08/31/18at 08:33; Admin Dose 1 TAB; Start 08/26/18 at 09:00 Thiamine HCl (Vitamin B1) 100 mg DAILY PO Last administered on 08/31/18at 08:33; Admin Dose 100 MG; Start 08/26/18 at 09:00 Insulin Aspart (Novolog Insulin Pen) NOVOLOG *MODERATE* ALGORITHM WITH MEALS BEDTIME SC Last administered on 08/29/18 17:36; Admin Dose 2 UNIT; Start 08/26/18 at 11:30 Famotidine (Pepcid) 20 mg DAILY PO Last administered on 08/31/18 08:33; Admin Dose 20 MG; Start 08/27/18 at 09:00 Insulin Glargine (Lantus) 20 units DAILY@2000 SC Last administered on 08/30/18 20:16; Admin Dose 20 UNITS; Start 08/27/18 at 20:00 Simethicone (Mylicon) 80 mg Q8 PRN PO DISTENSION/GAS/BLOATING Last administered on 08/27/18at 21:52; Admin Dose 80 MG; Start 08/27/18 at 21:00 Potassium Chloride (Klor-Con 20) 60 meq DAILY PO Last administered on 08/31/18 08:33; Admin Dose 60 MEQ; Start 08/29/18 at 09:00 Levofloxacin/ Dextrose 100 ml @ 100 mls/hr Q24H IVPB Last administered on 08/31/18at 00:49; Admin Dose 100 MLS/HR; Start 08/30/18 at 01:30 ZAINAB WASHBURN M.D. Aug 31, 2018 16:51
[2018-08-31] MEDS: INSULIN GLARGINE [LANTus] (100 UNITS/ML) SYG SC SCH (20:40)
[2018-09-01] VITALS (9 sets, daily range): BP systolic 102–110; BP diastolic 74–79; PULSE 113–128; RESP 18–20
[2018-09-01] MEDS: LEVOFLOXACIN 500MG/D5W (PMX) 100 ML IVPB SCH (01:10)
--- NOTE | 2018-09-01 03:20 | PN ---
DATE: 08/31/2018 SUBJECTIVE: The patient is stable. No events overnight. No fevers, chills, nausea, vomiting. OBJECTIVE: VITAL SIGNS: Blood pressure is 121/94, respirations 20, pulse 110, temperature 98.9. HEENT: Head is normocephalic. NECK: Supple. HEART: Regular rate. LUNGS: Show diminished breath sounds at the base. ABDOMEN: Soft, nontender to palpation without rebound or guarding. EXTREMITIES: Negative for clubbing, cyanosis, no edema. DERMATOLOGIC: No rashes. MUSCULOSKELETAL: No joint effusion. NEUROLOGIC: No change in exam. MEDICATIONS: Reviewed. LABORATORY DATA: Has been reviewed. ASSESSMENT AND PLAN: 1. Nonoliguric acute kidney injury with previous baseline creatinine of 1.1 to 1.2 mg/dL. Etiology of acute kidney injury is secondary to hemodynamics. Renal function is improved with IV fluids. Gwyn herrmann current treatment plan, supportive care, renally dose all meds. 2. Hypokalemia, hypomagnesemia. Continue to monitor and replete. 3. Hyponatremia. Etiology is multifactorial secondary to hypokalemia. Will replete with potassium chloride. Continue to monitor sodium levels. Limit free water intake. 4. Anemia. Monitor hemoglobin and hematocrit levels. 5. Mineral bone disorder. Monitor calcium and phosphorus levels. 6. Sepsis secondary to urinary tract infection bacteremia. Continue antibiotic therapy. 7. Diabetes. Continue current insulin regimen. 8. History of ETOH abuse. Dictated By: EMILY CARLSON DO NR/NTS Conf#: [id number] DID#: [id number] CC: APRIL SALAZAR MD;*EndCC*
[2018-09-01] MEDS: INSULIN ASPART [NOVOLOG] 3 ML PEN SC SCH ×4 (08:00→20:41)
[2018-09-01] MEDS: FAMOTIDINE 20 MG TAB PO SCH (08:27)
[2018-09-01] MEDS: FOLIC ACID 1 MG TAB PO SCH (08:27)
[2018-09-01] MEDS: THIAMINE 100 MG TAB PO SCH (08:27)
[2018-09-01] MEDS: MULTIVITAMINS THERAPEUTIC TAB PO SCH (08:27)
[2018-09-01] MEDS: POTASSIUM CHLORIDE (SR) 20 MEQ TAB PO SCH (08:27)
--- NOTE | 2018-09-01 11:45 | PN ---
Date/Time of Note Date/Time of Note DATE: 09/01/18 TIME: 11:39 Assessment/Plan VTE Prophylaxis Risk score (from Ns)>0 risk: 4 SCD applied (from Nsg): Yes Pharmacological prophylaxis: other Lines/Catheters IV Catheter Type (from Nrs): Saline Lock Urinary Cath still in place: No Assessment/Plan Hospital Course S: Patient had paracentesis performed yesterday with 2.1 L of fluid removed. O: VS- see below PE: General: Lying in bed, no acute distress HEENT: Atraumatic, normocephalic. The pupils are equal, round and reactive. Extraocular motor are intact, mucous membranes moist Neck: Supple with full range of motion. No rigidity or meningismus Chest: Nontender Lungs: Clear to auscultation bilaterally no crackles rales or wheezing Heart: Normal S1-S2, Regular rhythm and rate. No murmur, S3, or S4 Abdomen: Soft , slightly more distended abdomen/ascites, bowel sounds are present. No guarding no rebound tenderness Extremities: No lower exam edema bilaterally 2D echo: Conclusions: Normal left ventricular systolic function. Normal left ventricular cavity size. Left ventricular wall thickness upper limits of normal. Ejection fraction is visually estimated at 55 %. Tissue Doppler/Mitral Doppler indices are consistent with impaired relaxation (Stage I diastolic dysfunction). Mild mitral leaflet calcification. Mild mitral annular calcification. Trace mitral regurgitation. No evidence of endocarditis. No significant aortic stenosis or insufficiency. Aortic cusps appear mildly calcified. Normal appearance of the tricuspid valve. The estimated Peak RVSP is 26 mmHg. There is trace tricuspid regurgitation. No evidence of endocarditis. Assessment/Plan: 38 yo man with newly diagnosed diabetes and history of alcoholic hepatitis presents with UTI in hyperosmolar hyperglycemic state. #Diabetes mellitus- newly diagnosed A1c 10.2. -Patient also presented with hyperglycemia. Sugars much improved now -Continue insulin sliding scale and glargine qhs. -Anticipate need for discharge on glargine qhs. -We will also check insulin antibody levels and obtain endocrinology consult # Severe sepsis: Had been slowly resolving- Not requiring pressors- Probably due to UTI- Blood, urine cultures growing hernandes-sensitive E coli. However white blood cell count more elevated today -Per ID team, continue Levaquin for now, echocardiogram results reviewed, follow-up HIV screen, repeat procalcitonin, repeat lactic acid, lipase, AFP, PSA -Follow-up repeat blood culture results -Appreciate hematology oncology consult, follow-up results of flow cytometry. #Hypokalemia- Requiring daily PO and IV replacement-had been on 4 times daily lactulose having 3 bowel movements per day. -Monitor, replete as needed -Regarding lactulose, will cut back on this since his ammonia levels are normal now. #Abdominal distention: Likely secondary to ascites, improving now after paracentesis performed yesterday -Monitor for now, follow-up final fluid studies including culture # Acute encephalopathy: Resolved now- Probably was due to metabolic state. -Monitor #Hyponatremia - Resolved, monitor # history of alcoholic hepatitis with likely early cirrhosis: Again patient did have some ascites yesterday and 2.1 L of fluid removed after paracentesis yesterday -Monitor DVT GI prophylaxis: SCDs, H2 nicole Result Diagram: 09/01/18 0804 09/01/18 0518 Results 24hrs Laboratory Tests Test 08/31/18 11:50 08/31/18 15:10 08/31/18 17:31 08/31/18 20:39 Bedside Glucose 108 140 122 Body Fluid Type FLUID Body Fluid Volume 1025.0 Body Fluid Color YELLOW Body Fluid HAZY Appearance Body Fluid WBC 2601 Body Fluid RBC 1000 (Auto) Body Fluid 54.1 Polynuclear WBCs (%) Body Fluid 45.9 Mononuclear Cells % Auto Body Fluid Total < 2.0 Protein Body Fluid 416 Lactate Dehydrogenas e Test 09/01/18 05:18 09/01/18 05:19 09/01/18 07:49 09/01/18 08:04 Sodium Level 133 L Potassium Level 3.6 Chloride Level 102 Carbon Dioxide Level 20 L Anion Gap 11 Blood Urea Nitrogen 15 Creatinine 0.94 Est Glomerular > 60 Filtrat Rate mL/min Glucose Level 133 # Calcium Level 7.5 L Phosphorus Level 4.0 Magnesium Level 1.6 L Bedside Glucose 54 L White Blood Count 32.8 #H Red Blood Count 3.89 L Hemoglobin 11.7 L Hematocrit 35.2 L Mean Corpuscular 90.5 Volume Mean Corpuscular 30.1 Hemoglobin Mean Corpuscular 33.2 Hemoglobin Concent Red Cell 16.0 H Distribution Width Platelet Count 215 # Mean Platelet Volume 10.1 Immature 4.000 H Granulocytes % Neutrophils % Segmented 80 H Neutrophils % (Manual) Lymphocytes % Lymphocytes % 10 L (Manual) Reactive Lymphocytes 1 H % (Manual) Monocytes % Monocytes % (Manual) 9 Eosinophils % Basophils % Nucleated Red Blood 0.0 Cells % Immature 1.300 H Granulocytes # Neutrophils # Lymphocytes (Manual) 3.2 H Lymphocytes # Reactive Lymphocytes 0.3 H # Monocytes # Monocytes # (Manual) 2.9 H Eosinophils # Basophils # Nucleated Red Blood Cells # Platelet Estimate NORMAL Giant Platelets 1 H Poikilocytosis 1+ Anisocytosis 2+ Macrocytosis 2+ Test 09/01/18 08:16 Bedside Glucose 87 Exam/Review of Systems Exam Vitals Vital Signs Date Temp Pulse Resp B/P (MAP) Pulse Ox O2 O2 Flow FiO2 Time Delivery Rate 09/01/18 99.1 121 20 102/79 96 Room Air 11:16 (87) Intake and Output 08/31/18 08/31/18 09/01/18 1515:00 23:00 07:00 IntakeIntake Total 1700 ml 100 ml OutputOutput Total 400 ml BalanceBalance 1700 ml -300 ml Results Results 24hrs Laboratory Tests Test 08/31/18 11:50 08/31/18 15:10 08/31/18 17:31 08/31/18 20:39 Bedside Glucose 108 140 122 Body Fluid Type FLUID Body Fluid Volume 1025.0 Body Fluid Color YELLOW Body Fluid HAZY Appearance Body Fluid WBC 2601 Body Fluid RBC 1000 (Auto) Body Fluid 54.1 Polynuclear WBCs (%) Body Fluid 45.9 Mononuclear Cells % Auto Body Fluid Total < 2.0 Protein Body Fluid 416 Lactate Dehydrogenas e Test 09/01/18 05:18 09/01/18 05:19 09/01/18 07:49 09/01/18 08:04 Sodium Level 133 L Potassium Level 3.6 Chloride Level 102 Carbon Dioxide Level 20 L Anion Gap 11 Blood Urea Nitrogen 15 Creatinine 0.94 Est Glomerular > 60 Filtrat Rate mL/min Glucose Level 133 # Calcium Level 7.5 L Phosphorus Level 4.0 Magnesium Level 1.6 L Bedside Glucose 54 L White Blood Count 32.8 #H Red Blood Count 3.89 L Hemoglobin 11.7 L Hematocrit 35.2 L Mean Corpuscular 90.5 Volume Mean Corpuscular 30.1 Hemoglobin Mean Corpuscular 33.2 Hemoglobin Concent Red Cell 16.0 H Distribution Width Platelet Count 215 # Mean Platelet Volume 10.1 Immature 4.000 H Granulocytes % Neutrophils % Segmented 80 H Neutrophils % (Manual) Lymphocytes % Lymphocytes % 10 L (Manual) Reactive Lymphocytes 1 H % (Manual) Monocytes % Monocytes % (Manual) 9 Eosinophils % Basophils % Nucleated Red Blood 0.0 Cells % Immature 1.300 H Granulocytes # Neutrophils # Lymphocytes (Manual) 3.2 H Lymphocytes # Reactive Lymphocytes 0.3 H # Monocytes # Monocytes # (Manual) 2.9 H Eosinophils # Basophils # Nucleated Red Blood Cells # Platelet Estimate NORMAL Giant Platelets 1 H Poikilocytosis 1+ Anisocytosis 2+ Macrocytosis 2+ Test 09/01/18 08:16 Bedside Glucose 87 Medications Medication Current Medications Ondansetron HCl (Zofran Inj) 4 mg Q6H PRN IV NAUSEA AND/OR VOMITING; Start 08/25/18 at 20:00 Albuterol (Proventil 0.083% (Neb)) 2.5 mg Q2H RESP THERAPY PRN NEB SHORTNESS OF BREATH; Start 08/25/18 at 20:00 Ipratropium [place] (Atrovent 0.02% (Neb)) 0.5 mg Q2H RESP THERAPY PRN NEB SHORTNESS OF BREATH; Start 08/25/18 at 20:00 Acetaminophen (Tylenol Liquid) 650 mg Q6H PRN PO PAIN LEVEL 1-3 OR FEVER Last administered on 08/30/18at 00:45; Admin Dose 650 MG; Start 08/25/18 at 20:00 Morphine Sulfate (morphine) 1 mg Q4H PRN IV PAIN LEVEL 7-10; Start 08/25/18 at 20:00 Potassium Chloride 50 ml @ 50 mls/hr K PROTOCOL PRN IVPB PENDING LAB VALUE Last administered on 08/26/18at 17:23; Admin Dose 50 MLS/HR; Start 08/26/18 at 04:30 Miscellaneous Information 1 ea NOTE XX ; Start 08/26/18 at 05:00 Glucose (Glutose) 15 gm Q15M PRN PO DECREASED GLUCOSE; Start 08/26/18 at 05:00 Glucose (Glutose) 22.5 gm Q15M PRN PO DECREASED GLUCOSE; Start 08/26/18 at 05:00 Dextrose (D50w Syringe) 25 ml Q15M PRN IV DECREASED GLUCOSE; Start 08/26/18 at 05:00 Dextrose (D50w Syringe) 50 ml Q15M PRN IV DECREASED GLUCOSE; Start 08/26/18 at 05:00 Glucagon (Glucagen) 1 mg Q15M PRN IM DECREASED GLUCOSE; Start 08/26/18 at 05:00 Glucose (Glutose) 15 gm Q15M PRN BUCCAL DECREASED GLUCOSE; Start 08/26/18 at 05:00 Folic Acid (Folic Acid) 1 mg DAILY PO Last administered on 09/01/18 08:27; Admin Dose 1 MG; Start 08/26/18 at 09:00 Multivitamins Therapeutic (Theragran) 1 tab DAILY PO Last administered on 09/01/18 08:27; Admin Dose 1 TAB; Start 08/26/18 at 09:00 Thiamine HCl (Vitamin B1) 100 mg DAILY PO Last administered on 09/01/18 08:27; Admin Dose 100 MG; Start 08/26/18 at 09:00 Insulin Aspart (Novolog Insulin Pen) NOVOLOG *MODERATE* ALGORITHM WITH MEALS BEDTIME SC Last administered on 08/29/18 17:36; Admin Dose 2 UNIT; Start 08/26/18 at 11:30 Famotidine (Pepcid) 20 mg DAILY PO Last administered on 09/01/18 08:27; Admin Dose 20 MG; Start 08/27/18 at 09:00 Insulin Glargine (Lantus) 20 units DAILY@2000 SC Last administered on 08/31/18 20:40; Admin Dose 20 UNITS; Start 08/27/18 at 20:00 Simethicone (Mylicon) 80 mg Q8 PRN PO DISTENSION/GAS/BLOATING Last administered on 08/27/18 21:52; Admin Dose 80 MG; Start 08/27/18 at 21:00 Potassium Chloride (Klor-Con 20) 60 meq DAILY PO Last administered on 09/01/18 08:27; Admin Dose 60 MEQ; Start 08/29/18 at 09:00 Levofloxacin/ Dextrose 100 ml @ 100 mls/hr Q24H IVPB Last administered on 09/01/18 01:10; Admin Dose 100 MLS/HR; Start 08/30/18 at 01:30 Magnesium Sulfate/ Dextrose 100 ml @ 100 mls/hr ONCE ONCE IVPB ; Start 09/01/18 at 12:00; Stop 09/01/18 at 12:59; Status ALIS MONGE S. Sep 01, 2018 11:45
[2018-09-01] MEDS ORDERED: MAGNESIUM SULFATE 1 GM/D5W 100 ML IVPB ONE (12:00)
--- NOTE | 2018-09-01 12:51 | CONS ---
Assessment/Plan Assessment/Plan Hospital Course (Demo Recall) assessment/impression - severe sepsis (leukocytosis, tachycardia, RR>20 and lactic acid>4) due to bacteremia and UTI - recurrent UTI and bacteremia with the same species of bacteria: concerning for deep seated infection/source. Transthoracic echo on 08/30/2018 showed no e/o valvular vegetation - diarrhea, was on lactulose - ascites - s/p paracentesis on 08/31/2018: WBC 2601, PMNs 54.1%, protein <2, LDH 416 - hepatic encephalopathy on presentation. His head CT on 08/26/2018 showing no acute abnormalities - the presence of immature granulocytes, a reactive process - unintentional 15 lb weight loss: could reflect on-going (occult/deep seated) infection but also his alcoholic hepatitis - recurrent TORIBIO - newly diagnosed with DM: Hgb A1c on 08/26/2018 was 10.2 while that on 07/01/2018 was 6.3 - nonspecific gallbladder wall thickening identified on abd CT and abd MRI in 06/2018 - alcoholic hepatitis, hepatitis ABC screen was negative in 06/2018 - smokes marijuana recommendations: - pending results: ascetic fluid culture from 08/31/2018 - if Pt continues to have diarrhea even off lactulos >72hrs, will send a stool sample for C diff - continue levofloxacin (08/30/2018-) 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 Consultation Date/Type/Reason Admit Date/Time Aug 25, 2018 at 19:52 Initial Consult Date 08/29/18 Type of Consult ID Requesting Provider: JONN SEAY MD Date/Time of Note DATE: 09/01/18 TIME: 12:47 24 HR Interval Summary Constitutional: other (hypoglycemic this morning and felt weak) Detailed Summary Eyes: no complaints ENT: no complaints Respiratory: no complaints Cardiovascular: no complaints Gastrointestinal: diarrhea Genitourinary: no complaints Musculoskeletal: no complaints Skin: no complaints Exam/Review of Systems Exam Vitals Vital Signs Date Temp Pulse Resp B/P (MAP) Pulse Ox O2 O2 Flow FiO2 Time Delivery Rate 09/01/18 122 12:15 09/01/18 99.1 20 102/79 96 Room Air 11:16 (87) Intake and Output 08/31/18 08/31/18 09/01/18 1515:00 23:00 07:00 IntakeIntake Total 1700 ml 100 ml OutputOutput Total 400 ml BalanceBalance 1700 ml -300 ml Constitutional: alert, oriented, well developed Psych: no complaints, nl mood/affect Head: normocephalic, atraumatic Eyes: nl conjunctiva, nl lids, icteric ENMT: nl external ears & nose, nl nasal mucosa & septum, mucosa pink and moist Respiratory: clear to auscultation, normal air movement Cardiovascular: regular rate and rhythm, nl pulses Gastrointestinal: soft, non-tender, bowel sounds, distended (slightly) Musculoskeletal: nl extremities to inspection Extremities: No edema 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: DATA REPORT ANALYST II-XII intact, nl mental status, nl speech, nl strength Skin: other (slightly jaundiced) Results Result Diagram: 09/01/18 0804 09/01/18 0518 Results 24hrs Laboratory Tests Test 08/31/18 15:10 08/31/18 17:31 08/31/18 20:39 09/01/18 05:18 Body Fluid Type FLUID Body Fluid Volume 1025.0 Body Fluid Color YELLOW Body Fluid HAZY Appearance Body Fluid WBC 2601 Body Fluid RBC 1000 (Auto) Body Fluid 54.1 Polynuclear WBCs (%) Body Fluid 45.9 Mononuclear Cells % Auto Body Fluid Total < 2.0 Protein Body Fluid 416 Lactate Dehydrogenas e Bedside Glucose 140 122 Sodium Level 133 L Potassium Level 3.6 Chloride Level 102 Carbon Dioxide Level 20 L Anion Gap 11 Blood Urea Nitrogen 15 Creatinine 0.94 Est Glomerular > 60 Filtrat Rate mL/min Glucose Level 133 # Calcium Level 7.5 L Test 09/01/18 05:19 09/01/18 07:49 09/01/18 08:04 09/01/18 08:16 Phosphorus Level 4.0 Magnesium Level 1.6 L Bedside Glucose 54 L 87 White Blood Count 32.8 #H Red Blood Count 3.89 L Hemoglobin 11.7 L Hematocrit 35.2 L Mean Corpuscular 90.5 Volume Mean Corpuscular 30.1 Hemoglobin Mean Corpuscular 33.2 Hemoglobin Concent Red Cell 16.0 H Distribution Width Platelet Count 215 # Mean Platelet Volume 10.1 Immature 4.000 H Granulocytes % Neutrophils % Segmented 80 H Neutrophils % (Manual) Lymphocytes % Lymphocytes % 10 L (Manual) Reactive Lymphocytes 1 H % (Manual) Monocytes % Monocytes % (Manual) 9 Eosinophils % Basophils % Nucleated Red Blood 0.0 Cells % Immature 1.300 H Granulocytes # Neutrophils # Lymphocytes (Manual) 3.2 H Lymphocytes # Reactive Lymphocytes 0.3 H # Monocytes # Monocytes # (Manual) 2.9 H Eosinophils # Basophils # Nucleated Red Blood Cells # Platelet Estimate NORMAL Giant Platelets 1 H Poikilocytosis 1+ Anisocytosis 2+ Macrocytosis 2+ Test 09/01/18 12:07 Bedside Glucose 82 Medications Medication Current Medications Ondansetron HCl (Zofran Inj) 4 mg Q6H PRN IV NAUSEA AND/OR VOMITING; Start 08/25/18 at 20:00 Albuterol (Proventil 0.083% (Neb)) 2.5 mg Q2H RESP THERAPY PRN NEB SHORTNESS OF BREATH; Start 08/25/18 at 20:00 Ipratropium [place] (Atrovent 0.02% (Neb)) 0.5 mg Q2H RESP THERAPY PRN NEB SHORTNESS OF BREATH; Start 08/25/18 at 20:00 Acetaminophen (Tylenol Liquid) 650 mg Q6H PRN PO PAIN LEVEL 1-3 OR FEVER Last administered on 08/30/18at 00:45; Admin Dose 650 MG; Start 08/25/18 at 20:00 Morphine Sulfate (morphine) 1 mg Q4H PRN IV PAIN LEVEL 7-10; Start 08/25/18 at 20:00 Potassium Chloride 50 ml @ 50 mls/hr K PROTOCOL PRN IVPB PENDING LAB VALUE Last administered on 08/26/18at 17:23; Admin Dose 50 MLS/HR; Start 08/26/18 at 04:30 Miscellaneous Information 1 ea NOTE XX ; Start 08/26/18 at 05:00 Glucose (Glutose) 15 gm Q15M PRN PO DECREASED GLUCOSE; Start 08/26/18 at 05:00 Glucose (Glutose) 22.5 gm Q15M PRN PO DECREASED GLUCOSE; Start 08/26/18 at 05:00 Dextrose (D50w Syringe) 25 ml Q15M PRN IV DECREASED GLUCOSE; Start 08/26/18 at 05:00 Dextrose (D50w Syringe) 50 ml Q15M PRN IV DECREASED GLUCOSE; Start 08/26/18 at 05:00 Glucagon (Glucagen) 1 mg Q15M PRN IM DECREASED GLUCOSE; Start 08/26/18 at 05:00 Glucose (Glutose) 15 gm Q15M PRN BUCCAL DECREASED GLUCOSE; Start 08/26/18 at 05:00 Folic Acid (Folic Acid) 1 mg DAILY PO Last administered on 09/01/18 08:27; Ad min Dose 1 MG; Start 08/26/18 at 09:00 Multivitamins Therapeutic (Theragran) 1 tab DAILY PO Last administered on 09/01/18 08:27; Admin Dose 1 TAB; Start 08/26/18 at 09:00 Thiamine HCl (Vitamin B1) 100 mg DAILY PO Last administered on 09/01/18 08:27; Admin Dose 100 MG; Start 08/26/18 at 09:00 Insulin Aspart (Novolog Insulin Pen) NOVOLOG *MODERATE* ALGORITHM WITH MEALS BEDTIME SC Last administered on 08/29/18 17:36; Admin Dose 2 UNIT; Start 08/26/18 at 11:30 Famotidine (Pepcid) 20 mg DAILY PO Last administered on 09/01/18 08:27; Admin Dose 20 MG; Start 08/27/18 at 09:00 Insulin Glargine (Lantus) 20 units DAILY@2000 SC Last administered on 08/31/18 20:40; Admin Dose 20 UNITS; Start 08/27/18 at 20:00 Simethicone (Mylicon) 80 mg Q8 PRN PO DISTENSION/GAS/BLOATING Last administered on 08/27/18 21:52; Admin Dose 80 MG; Start 08/27/18 at 21:00 Potassium Chloride (Klor-Con 20) 60 meq DAILY PO Last administered on 09/01/18 08:27; Admin Dose 60 MEQ; Start 08/29/18 at 09:00 Levofloxacin/ Dextrose 100 ml @ 100 mls/hr Q24H IVPB Last administered on 09/01/18 01:10; Admin Dose 100 MLS/HR; Start 08/30/18 at 01:30 Magnesium Sulfate/ Dextrose 100 ml @ 100 mls/hr ONCE ONCE IVPB Last administered on 09/01/18 12:15; Admin Dose 100 MLS/HR; Start 09/01/18 at 12:00; Stop 09/01/18 at 12:59 ZAINAB WASHBURN M.D. Sep 01, 2018 12:51
--- NOTE | 2018-09-01 13:06 | PN ---
DATE: 09/01/2018 SUBJECTIVE: The patient is stable, no acute events overnight. No hemoptysis, hematemesis or hematoc hezia. OBJECTIVE: VITAL SIGNS: Blood pressure is 106/74, respirations 20, pulse 122, temperature 98.0. HEENT: Head is normocephalic. NECK: Supple. HEART: Regular rate. LUNGS: Show diminished breath sounds at the base. ABDOMEN: Soft, nontender to palpation without rebound or guarding. EXTREMITIES: Negative for clubbing, cyanosis, no edema. DERMATOLOGIC: No rashes. MUSCULOSKELETAL: No joint effusion. NEUROLOGIC: No change in exam. MEDICATIONS: Reviewed. LABORATORY DATA: Reviewed. IMAGING STUDIES: Reviewed. ASSESSMENT AND PLAN: 1. Nonoliguric acute kidney injury. Etiology is secondary to hemodynamics. Renal function is impro andrez. Continue current treatment plan, supportive care, renally dose all medications. 2. Hypernatremia. Etiology is possibly due to component of syndrome of inappropriate antidiuretic h ormone. Continue to monitor serum sodium levels closely. Limit free water intake. 3. Anemia. Continue to monitor hemoglobin and hematocrit levels. 4. Mineral bone disorder, monitor calcium and phosphorus levels. 5. Hypokalemia. Continue to monitor and replete as needed. 6. Severe sepsis secondary to urinary tract infection, bacteria and antibiotic regimen. Follow up w ith Infectious Disease. 7. Diabetes. Continue to monitor. 8. History of ETOH abuse. Monitor for signs of withdrawal. Dictated By: EMILY CARLSON DO NR/NTS Conf#: [id number] DID#: [id number] CC: ZAINAB WASHBURN MD; APRIL SALAZAR MD; ALIS FINE;*EndCC*
--- NOTE | 2018-09-01 15:53 | CONS ---
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 if PT >20, given Vit K 5 mg sq x 1 Consultation Date/Type/Reason Admit Date/Time Aug 25, 2018 at 19:52 Initial Consult Date 08/29/18 Requesting Provider: JONN SEAY MD Date/Time of Note DATE: 09/01/18 TIME: 15:51 24 HR Interval Summary Free Text/Dictation no complaints today Exam/Review of Systems Exam Vitals Vital Signs Date Temp Pulse Resp B/P (MAP) Pulse Ox O2 O2 Flow FiO2 Time Delivery Rate 09/01/18 98.9 113 18 110/77 97 Room Air 15:24 (88) Intake and Output 08/31/18 08/31/18 09/01/18 1414:59 22:59 06:59 IntakeIntake Total 1700 ml 100 ml OutputOutput Total 400 ml BalanceBalance 1700 ml -300 ml Constitutional: frail Eyes: icteric Results Result Diagram: 09/01/18 0804 09/01/18 0518 Results 24hrs Laboratory Tests Test 08/31/18 17:31 08/31/18 20:39 09/01/18 05:18 09/01/18 05:19 Bedside Glucose 140 122 Sodium Level 133 L Potassium Level 3.6 Chloride Level 102 Carbon Dioxide Level 20 L Anion Gap 11 Blood Urea Nitrogen 15 Creatinine 0.94 Est Glomerular > 60 Filtrat Rate mL/min Glucose Level 133 # Calcium Level 7.5 L Phosphorus Level 4.0 Magnesium Level 1.6 L Test 09/01/18 07:49 09/01/18 08:04 09/01/18 08:16 09/01/18 12:07 Bedside Glucose 54 L 87 82 White Blood Count 32.8 #H Red Blood Count 3.89 L Hemoglobin 11.7 L Hematocrit 35.2 L Mean Corpuscular 90.5 Volume Mean Corpuscular 30.1 Hemoglobin Mean Corpuscular 33.2 Hemoglobin Concent Red Cell 16.0 H Distribution Width Platelet Count 215 # Mean Platelet Volume 10.1 Immature 4.000 H Granulocytes % Neutrophils % Segmented 80 H Neutrophils % (Manual) Lymphocytes % Lymphocytes % 10 L (Manual) Reactive Lymphocytes 1 H % (Manual) Monocytes % Monocytes % (Manual) 9 Eosinophils % Basophils % Nucleated Red Blood 0.0 Cells % Immature 1.300 H Granulocytes # Neutrophils # Lymphocytes (Manual) 3.2 H Lymphocytes # Reactive Lymphocytes 0.3 H # Monocytes # Monocytes # (Manual) 2.9 H Eosinophils # Basophils # Nucleated Red Blood Cells # Platelet Estimate NORMAL Giant Platelets 1 H Poikilocytosis 1+ Anisocytosis 2+ Macrocytosis 2+ Medications Medication Current Medications Ondansetron HCl (Zofran Inj) 4 mg Q6H PRN IV NAUSEA AND/OR VOMITING; Start 08/25/18 at 20:00 Albuterol (Proventil 0.083% (Neb)) 2.5 mg Q2H RESP THERAPY PRN NEB SHORTNESS OF BREATH; Start 08/25/18 at 20:00 Ipratropium [place] (Atrovent 0.02% (Neb)) 0.5 mg Q2H RESP THERAPY PRN NEB SHORTNESS OF BREATH; Start 08/25/18 at 20:00 Acetaminophen (Tylenol Liquid) 650 mg Q6H PRN PO PAIN LEVEL 1-3 OR FEVER Last administered on 08/30/18at 00:45; Admin Dose 650 MG; Start 08/25/18 at 20:00 Morphine Sulfate (morphine) 1 mg Q4H PRN IV PAIN LEVEL 7-10; Start 08/25/18 at 20:00 Potassium Chloride 50 ml @ 50 mls/hr K PROTOCOL PRN IVPB PENDING LAB VALUE Last administered on 08/26/18at 17:23; Admin Dose 50 MLS/HR; Start 08/26/18 at 04:30 Miscellaneous Information 1 ea NOTE XX ; Start 08/26/18 at 05:00 Glucose (Glutose) 15 gm Q15M PRN PO DECREASED GLUCOSE; Start 08/26/18 at 05:00 Glucose (Glutose) 22.5 gm Q15M PRN PO DECREASED GLUCOSE; Start 08/26/18 at 05:00 Dextrose (D50w Syringe) 25 ml Q15M PRN IV DECREASED GLUCOSE; Start 08/26/18 at 05:00 Dextrose (D50w Syringe) 50 ml Q15M PRN IV DECREASED GLUCOSE; Start 08/26/18 at 05:00 Glucagon (Glucagen) 1 mg Q15M PRN IM DECREASED GLUCOSE; Start 08/26/18 at 05:00 Glucose (Glutose) 15 gm Q15M PRN BUCCAL DECREASED GLUCOSE; Start 08/26/18 at 05:00 Folic Acid (Folic Acid) 1 mg DAILY PO Last administered on 09/01/18 08:27; Admin Dose 1 MG; Start 08/26/18 at 09:00 Multivitamins Therapeutic (Theragran) 1 tab DAILY PO Last administered on 09/01/18 08:27; Admin Dose 1 TAB; Start 08/26/18 at 09:00 Thiamine HCl (Vitamin B1) 100 mg DAILY PO Last administered on 09/01/18 08:27; Admin Dose 100 MG; Start 08/26/18 at 09:00 Insulin Aspart (Novolog Insulin Pen) NOVOLOG *MODERATE* ALGORITHM WITH MEALS BEDTIME SC Last administered on 08/29/18 17:36; Admin Dose 2 UNIT; Start 08/26/18 at 11:30 Famotidine (Pepcid) 20 mg DAILY PO Last administered on 09/01/18 08:27; Admin Dose 20 MG; Start 08/27/18 at 09:00 Simethicone (Mylicon) 80 mg Q8 PRN PO DISTENSION/GAS/BLOATING Last administered on 08/27/18 21:52; Admin Dose 80 MG; Start 08/27/18 at 21:00 Potassium Chloride (Klor-Con 20) 60 meq DAILY PO Last administered on 09/01/18 08:27; Admin Dose 60 MEQ; Start 08/29/18 at 09:00 Levofloxacin/ Dextrose 100 ml @ 100 mls/hr Q24H IVPB Last administered on 09/01/18 01:10; Admin Dose 100 MLS/HR; Start 08/30/18 at 01:30 Insulin Glargine (Lantus) 14 units DAILY@2000 SC ; Start 09/01/18 at 20:00 CHRISTIAN HERNANDES Sep 01, 2018 15:53
--- NOTE | 2018-09-01 18:28 | CONS ---
Assessment/Plan Assessment/Plan Problems: (1) Type 2 diabetes mellitus without complications Status: Chronic Comment: Suspect T2DM based on Fhx, race, and h/o poor self-care. Will check c-peptide, anti-[id number] ab, islet cell ab, and primary team has already ordered insulin autoantibody. BG decreasing. Will decrease lantus from 20 to 14 units qhs and monitor. Qualifiers: Qualified Codes: E11.9 - Type 2 diabetes mellitus without complications (2) Hyperglycemia Status: Resolved Consultation Date/Type/Reason Admit Date/Time Aug 25, 2018 at 19:52 Date of Consultation: Sep 01, 2018 Type of Consult Endocrinology Reason for Consultation R/o T1DM vs. T2DM Requesting Provider: ALIS FINE Date/Time of Note DATE: 09/01/18 TIME: 18:21 Hx of Present Illness 38 y/o H M w/ h/o EtOH abuse p/w AMS. Found to be in severe sepsis. BG > 600 mg/dL and A1c > 10%. Pt. found to have mild cirrhosis of the liver w/ (+) ascites. W/ antibiotic therapy sepsis and encephalopathy have improved. Had paracentesis yesterday and feels better. BG markedly improved on only lantus and ISS. Even hypoglycemic this am. Endo consulted to determine DM type. Constitutional: no complaints, improved Eyes: no complaints ENT: no complaints Respiratory: no complaints Cardiovascular: no complaints Gastrointestinal: no complaints Genitourinary: no complaints Musculoskeletal: no complaints Neurologic: no complaints Past Medical History Medical History: hepatitis (alcoholic and fatty) Home Meds Reported Medications Ferrous Sulfate* (Ferrous Sulfate*) 325 Mg Tabec, 325 MG PO DAILY, TAB 08/25/18 Lorazepam* (Lorazepam*) 1 Mg Tablet, 1 MG PO Q12H PRN for ANXIETY for 15 Days, #30 08/25/18 Cholecalciferol* (Vitamin D*) 400 Unit Tablet, 800 UNIT PO DAILY, TAB 06/24/17 Medications Current Medications Ondansetron HCl (Zofran Inj) 4 mg Q6H PRN IV NAUSEA AND/OR VOMITING; Start 08/25/18 at 20:00 Albuterol (Proventil 0.083% (Neb)) 2.5 mg Q2H RESP THERAPY PRN NEB SHORTNESS OF BREATH; Start 08/25/18 at 20:00 Ipratropium [place] (Atrovent 0.02% (Neb)) 0.5 mg Q2H RESP THERAPY PRN NEB SHORTNESS OF BREATH; Start 08/25/18 at 20:00 Acetaminophen (Tylenol Liquid) 650 mg Q6H PRN PO PAIN LEVEL 1-3 OR FEVER Last administered on 08/30/18at 00:45; Admin Dose 650 MG; Start 08/25/18 at 20:00 Morphine Sulfate (morphine) 1 mg Q4H PRN IV PAIN LEVEL 7-10; Start 08/25/18 at 20:00 Potassium Chloride 50 ml @ 50 mls/hr K PROTOCOL PRN IVPB PENDING LAB VALUE Last administered on 08/26/18at 17:23; Admin Dose 50 MLS/HR; Start 08/26/18 at 04:30 Miscellaneous Information 1 ea NOTE XX ; Start 08/26/18 at 05:00 Glucose (Glutose) 15 gm Q15M PRN PO DECREASED GLUCOSE; Start 08/26/18 at 05:00 Glucose (Glutose) 22.5 gm Q15M PRN PO DECREASED GLUCOSE; Start 08/26/18 at 05:00 Dextrose (D50w Syringe) 25 ml Q15M PRN IV DECREASED GLUCOSE; Start 08/26/18 at 05:00 Dextrose (D50w Syringe) 50 ml Q15M PRN IV DECREASED GLUCOSE; Start 08/26/18 at 05:00 Glucagon (Glucagen) 1 mg Q15M PRN IM DECREASED GLUCOSE; Start 08/26/18 at 05:00 Glucose (Glutose) 15 gm Q15M PRN BUCCAL DECREASED GLUCOSE; Start 08/26/18 at 05:00 Folic Acid (Folic Acid) 1 mg DAILY PO Last administered on 09/01/18 08:27; Admin Dose 1 MG; Start 08/26/18 at 09:00 Multivitamins Therapeutic (Theragran) 1 tab DAILY PO Last administered on 09/01/18 08:27; Admin Dose 1 TAB; Start 08/26/18 at 09:00 Thiamine HCl (Vitamin B1) 100 mg DAILY PO Last administered on 09/01/18 08:27; Admin Dose 100 MG; Start 08/26/18 at 09:00 Insulin Aspart (Novolog Insulin Pen) NOVOLOG *MODERATE* ALGORITHM WITH MEALS BEDTIME SC Last administered on 09/01/18at 17:24; Admin Dose 2 UNIT; Start 08/26/18 at 11:30 Famotidine (Pepcid) 20 mg DAILY PO Last administered on 09/01/18at 08:27; Admin Dose 20 MG; Start 08/27/18 at 09:00 Simethicone (Mylicon) 80 mg Q8 PRN PO DISTENSION/GAS/BLOATING Last administered on 08/27/18at 21:52; Admin Dose 80 MG; Start 08/27/18 at 21:00 Potassium Chloride (Klor-Con 20) 60 meq DAILY PO Last administered on 09/01/18at 08:27; Admin Dose 60 MEQ; Start 08/29/18 at 09:00 Levofloxacin/ Dextrose 100 ml @ 100 mls/hr Q24H IVPB Last administered on 09/01/18at 01:10; Admin Dose 100 MLS/HR; Start 08/30/18 at 01:30 Insulin Glargine (Lantus) 14 units DAILY@2000 SC ; Start 09/01/18 at 20:00 Allergies: Coded Allergies: No Known Allergy (Unverified , 08/25/18) Past Surgical History Past Surgical Hx: other (ORIF compound fracture L forearm) Family History Significant Family History: cancer (breast in mother), diabetes (mother) Social History b. 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, no children Alcohol Use: sober (2 months) Smoking Status: Never smoker Drug Use: marijuana (qod) Exam/Review of Systems Exam Vitals VS - Last 72 Hours, by Label Date Temp Pulse Resp B/P (MAP) Pulse Ox O2 O2 Flow FiO2 Time Delivery Rate 09/01/18 119 16:12 09/01/18 98.9 113 18 110/77 97 Room Air 15:24 (88) 09/01/18 122 12:15 09/01/18 99.1 121 20 102/79 96 Room Air 11:16 (87) 09/01/18 128 08:14 09/01/18 99.0 122 20 106/74 96 04:05 (85) 09/01/18 116 04:00 09/01/18 123 00:00 08/31/18 99.6 119 20 102/62 97 23:52 (75) 08/31/18 113 20:00 08/31/18 99.2 109 20 117/76 97 Room Air 19:51 (90) 08/31/18 103 16:20 08/31/18 97.8 96 20 125/80 96 Room Air 15:55 (95) 08/31/18 98.1 101 22 122/84 98 Room Air 14:33 (97) 08/31/18 122 12:10 08/31/18 98.9 110 20 121/84 96 Room Air 11:25 (96) 08/31/18 115 08:20 08/31/18 97.9 108 20 127/87 96 Room Air 07:55 (100) 08/31/18 121 04:00 08/31/18 98.1 130 20 117/87 96 03:51 (97) 08/31/18 120 00:00 08/30/18 98.7 118 21 113/79 97 23:50 (90) 08/30/18 110 20:00 08/30/18 98.3 111 21 115/79 97 Room Air 19:35 (91) 08/30/18 95 16:01 08/30/18 98.0 98 21 110/76 96 Room Air 15:36 (87) 08/30/18 90 12:01 08/30/18 97.6 91 22 113/81 96 11:09 (92) 08/30/18 98 08:01 08/30/18 98.0 96 22 115/78 96 Room Air 07:20 (90) 08/30/18 98.6 65 18 95/53 (67) 98 04:24 08/30/18 98 04:00 08/30/18 98.6 113 16 103/70 94 00:47 (81) 08/30/18 104 00:00 08/29/18 99.2 108 20 108/75 97 20:50 (86) 08/29/18 105 20:00 Vital Signs Date Temp Pulse Resp B/P (MAP) Pulse Ox O2 O2 Flow FiO2 Time Delivery Rate 09/01/18 119 16:12 09/01/18 98.9 18 110/77 97 Room Air 15:24 (88) Intake and Output 08/31/18 08/31/18 09/01/18 1515:00 23:00 07:00 IntakeIntake Total 1700 ml 100 ml OutputOutput Total 400 ml BalanceBalance 1700 ml -300 ml Constitutional: alert, oriented, well developed Psych: no complaints, nl mood/affect Eyes: nl conjunctiva, EOMI, nl lids, nl sclera, PERRL, icteric ENMT: nl external ears & nose, mucosa pink and moist Neck: supple, non-tender; No bruits, No masses, No thyromegaly Respiratory: clear to auscultation, normal air movement Cardiovascular: regular rate and rhythm, nl pulses; No edema, No murmurs/extra sounds, No rub Gastrointestinal: soft, nl liver, spleen, non-tender, bowel sounds; No mass, No rebound or guarding Musculoskeletal: nl extremities to inspection Extremities: normal pulses; No cyanosis, No clubbing, No edema 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: [employer] II-XII intact, nl mental status, nl speech, nl strength Additional Comments Bedside Glucose - 72 Hours Test 08/29/18 19:59 08/30/18 07:34 08/30/18 11:44 08/30/18 18:50 Bedside 131 81 75 160 Glucose mg/dL (70-220) mg/dL (70-220) mg/dL (70-220) mg/dL (70-220) Test 08/30/18 20:02 08/31/18 07:51 08/31/18 11:50 08/31/18 17:31 Bedside 96 76 108 140 Glucose mg/dL (70-220) mg/dL (70-220) mg/dL (70-220) mg/dL (70-220) Test 08/31/18 20:39 09/01/18 07:49 09/01/18 08:16 09/01/18 12:07 Bedside 122 54 87 82 Glucose mg/dL (70-220) mg/dL (70-220) mg/dL (70-220) mg/dL (70-220) L Test 09/01/18 17:11 Bedside 178 Glucose mg/dL (70-220) Results Result Diagram: 09/01/18 0804 09/01/1818 Results 24hrs Laboratory Tests Test 08/31/18 20:39 09/01/18 05:18 09/01/18 05:19 09/01/18 07:49 Bedside Glucose 122 54 L Sodium Level 133 L Potassium Level 3.6 Chloride Level 102 Carbon Dioxide Level 20 L Anion Gap 11 Blood Urea Nitrogen 15 Creatinine 0.94 Est Glomerular > 60 Filtrat Rate mL/min Glucose Level 133 # Calcium Level 7.5 L Phosphorus Level 4.0 Magnesium Level 1.6 L Test 09/01/18 08:04 09/01/18 08:16 09/01/18 12:07 09/01/18 17:11 White Blood Count 32.8 #H Red Blood Count 3.89 L Hemoglobin 11.7 L Hematocrit 35.2 L Mean Corpuscular 90.5 Volume Mean Corpuscular 30.1 Hemoglobin Mean Corpuscular 33.2 Hemoglobin Concent Red Cell 16.0 H Distribution Width Platelet Count 215 # Mean Platelet Volume 10.1 Immature 4.000 H Granulocytes % Neutrophils % Segmented 80 H Neutrophils % (Manual) Lymphocytes % Lymphocytes % 10 L (Manual) Reactive Lymphocytes 1 H % (Manual) Monocytes % Monocytes % (Manual) 9 Eosinophils % Basophils % Nucleated Red Blood 0.0 Cells % Immature 1.300 H Granulocytes # Neutrophils # Lymphocytes (Manual) 3.2 H Lymphocytes # Reactive Lymphocytes 0.3 H # Monocytes # Monocytes # (Manual) 2.9 H Eosinophils # Basophils # Nucleated Red Blood Cells # Platelet Estimate NORMAL Giant Platelets 1 H Poikilocytosis 1+ Anisocytosis 2+ Macrocytosis 2+ Bedside Glucose 87 82 178 Medications Medication Current Medications Ondansetron HCl (Zofran Inj) 4 mg Q6H PRN IV NAUSEA AND/OR VOMITING; Start 08/25/18 at 20:00 Albuterol (Proventil 0.083% (Neb)) 2.5 mg Q2H RESP THERAPY PRN NEB SHORTNESS OF BREATH; Start 08/25/18 at 20:00 Ipratropium [place] (Atrovent 0.02% (Neb)) 0.5 mg Q2H RESP THERAPY PRN NEB SHORTNESS OF BREATH; Start 08/25/18 at 20:00 Acetaminophen (Tylenol Liquid) 650 mg Q6H PRN PO PAIN LEVEL 1-3 OR FEVER Last administered on 08/30/18at 00:45; Admin Dose 650 MG; Start 08/25/18 at 20:00 Morphine Sulfate (morphine) 1 mg Q4H PRN IV PAIN LEVEL 7-10; Start 08/25/18 at 20:00 Potassium Chloride 50 ml @ 50 mls/hr K PROTOCOL PRN IVPB PENDING LAB VALUE Last administered on 08/26/18at 17:23; Admin Dose 50 MLS/HR; Start 08/26/18 at 04:30 Miscellaneous Information 1 ea NOTE XX ; Start 08/26/18 at 05:00 Glucose (Glutose) 15 gm Q15M PRN PO DECREASED GLUCOSE; Start 08/26/18 at 05:00 Glucose (Glutose) 22.5 gm Q15M PRN PO DECREASED GLUCOSE; Start 08/26/18 at 05:00 Dextrose (D50w Syringe) 25 ml Q15M PRN IV DECREASED GLUCOSE; Start 08/26/18 at 05:00 Dextrose (D50w Syringe) 50 ml Q15M PRN IV DECREASED GLUCOSE; Start 08/26/18 at 05:00 Glucagon (Glucagen) 1 mg Q15M PRN IM DECREASED GLUCOSE; Start 08/26/18 at 05:00 Glucose (Glutose) 15 gm Q15M PRN BUCCAL DECREASED GLUCOSE; Start 08/26/18 at 05:00 Folic Acid (Folic Acid) 1 mg DAILY PO Last administered on 09/01/18 08:27; Admin Dose 1 MG; Start 08/26/18 at 09:00 Multivitamins Therapeutic (Theragran) 1 tab DAILY PO Last administered on 09/01 08:27; Admin Dose 1 TAB; Start 08/26/18 at 09:00 Thiamine HCl (Vitamin B1) 100 mg DAILY PO Last administered on 09/01/18 08:27; Admin Dose 100 MG; Start 08/26/18 at 09:00 Insulin Aspart (Novolog Insulin Pen) NOVOLOG *MODERATE* ALGORITHM WITH MEALS BEDTIME SC Last administered on 09/01/18 17:24; Admin Dose 2 UNIT; Start 08/26/18 at 11:30 Famotidine (Pepcid) 20 mg DAILY PO Last administered on 09/01/18 08:27; Admin Dose 20 MG; Start 08/27/18 at 09:00 Simethicone (Mylicon) 80 mg Q8 PRN PO DISTENSION/GAS/BLOATING Last administered on 08/27/18at 21:52; Admin Dose 80 MG; Start 08/27/18 at 21:00 Potassium Chloride (Klor-Con 20) 60 meq DAILY PO Last administered on 09/01/18 08:27; Admin Dose 60 MEQ; Start 08/29/18 at 09:00 Levofloxacin/ Dextrose 100 ml @ 100 mls/hr Q24H IVPB Last administered on 09/01/18at 01:10; Admin Dose 100 MLS/HR; Start 08/30/18 at 01:30 Insulin Glargine (Lantus) 14 units DAILY@2000 SC ; Start 09/01/18 at 20:00 DELIO CESPEDES MD Sep 01, 2018 18:28
[2018-09-01] MEDS: INSULIN GLARGINE [LANTus] (100 UNITS/ML) SYG SC SCH (20:39)
[2018-09-02] VITALS (11 sets, daily range): BP systolic 100–110; BP diastolic 67–75; PULSE 91–116; RESP 18–20
[2018-09-02] MEDS: LEVOFLOXACIN 500MG/D5W (PMX) 100 ML IVPB SCH (01:27)
[2018-09-02] MEDS: INSULIN ASPART [NOVOLOG] 3 ML PEN SC SCH ×4 (08:00→21:00)
[2018-09-02] MEDS: THIAMINE 100 MG TAB PO SCH (09:01)
[2018-09-02] MEDS: FAMOTIDINE 20 MG TAB PO SCH (09:01)
[2018-09-02] MEDS: MULTIVITAMINS THERAPEUTIC TAB PO SCH (09:01)
[2018-09-02] MEDS: FOLIC ACID 1 MG TAB PO SCH (09:02)
[2018-09-02] MEDS: POTASSIUM CHLORIDE (SR) 20 MEQ TAB PO SCH (09:02)
--- NOTE | 2018-09-02 10:43 | PN ---
DATE: 09/02/2018 SUBJECTIVE: The patient is stable, no events overnight. OBJECTIVE: VITAL SIGNS: Blood pressure is 100/67, respirations 20, pulse 103, temperature 98.5. HEENT: Head is normocephalic. NECK: Supple. HEART: Regular rate. LUNGS: Show diminished breath sounds at the base. ABDOMEN: Soft, nontender to palpation without rebound or guarding. EXTREMITIES: Negative for clubbing, cyanosis, no edema. DERMATOLOGIC: No rashes. MUSCULOSKELETAL: No joint effusions. NEUROLOGIC: No change in exam. MEDICATIONS: The patient's medications have been reviewed. LABORATORY DATA: Has been reviewed. IMAGING STUDIES: Have been reviewed. ASSESSMENT AND PLAN: 1. Nonoliguric acute kidney injury. Etiology is secondary to hemodynamics. Renal function is impro andrez. Continue to monitor. 2. Hyponatremia, etiology is multifactorial secondary to hypokalemia, questionable component of SIAD H. Continue to limit free water intake. Continue to correct underlying hypokalemia, monitor. 3. Hypokalemia. Replete with potassium chloride. 4. Anemia. Monitor hemoglobin and hematocrit levels. 5. Mineral bone disorder, monitor calcium and phosphorus levels. 6. Severe sepsis secondary to urinary tract infection. Continue current antibiotic regimen. Follow up infectious disease. 7. History of ETOH abuse, questionable ETOH hepatitis. Monitor closely. 8. Diabetes. Continue current insulin regimen. Dictated By: EMILY CARLSON DO NR/NTS Conf#: [id number] DID#: [id number] CC: ZAINAB WASHBURN MD; ALIS FINE; APRIL SALAZAR MD;*End*
[2018-09-02] MEDS ORDERED: POTASSIUM CHLORIDE (SR) 20 MEQ TAB PO STA (11:27)
--- NOTE | 2018-09-02 11:39 | PN ---
Date/Time of Note Date/Time of Note DATE: 09/02/18 TIME: 11:35 Assessment/Plan VTE Prophylaxis Risk score (from Nsg)>0 risk: 2 SCD applied (from Nsg): Yes Pharmacological prophylaxis: other Lines/Catheters IV Catheter Type (from Nrsg): Saline Lock Urinary Cath still in place: No Assessment/Plan Hospital Course S: Patient states less diarrhea now, tolerating diet. Seen by endocrinology team yesterday. O: VS- see below PE: General: Lying in bed, no acute distress HEENT: Atraumatic, normocephalic. The pupils are equal, round and reactive. Extraocular motor are intact, mucous membranes moist Neck: Supple with full range of motion. No rigidity or meningismus Chest: Nontender Lungs: Clear to auscultation bilaterally no crackles rales or wheezing Heart: Normal S1-S2, Regular rhythm and rate. No murmur, S3, or S4 Abdomen: Soft , slightly more distended abdomen/ascites, bowel sounds are present. No guarding no rebound tenderness Extremities: No lower exam edema bilaterally 2D echo: Conclusions: Normal left ventricular systolic function. Normal left ventricular cavity size. Left ventricular wall thickness upper limits of normal. Ejection fraction is visually estimated at 55 %. Tissue Doppler/Mitral Doppler indices are consistent with impaired relaxation (Stage I diastolic dysfunction). Mild mitral leaflet calcification. Mild mitral annular calcification. Trace mitral regurgitation. No evidence of endocarditis. No significant aortic stenosis or insufficiency. Aortic cusps appear mildly calcified. Normal appearance of the tricuspid valve. The estimated Peak RVSP is 26 mmHg. There is trace tricuspid regurgitation. No evidence of endocarditis. Assessment/Plan: 38 yo man with newly diagnosed diabetes and history of alcoholic hepatitis presents with UTI in hyperosmolar hyperglycemic state. #Diabetes mellitus- newly diagnosed A1c 10.2. -Patient also presented with hyperglycemia. Sugars improved now -Continue insulin sliding scale and glargine qhs per endocrinology re commendations -Follow-up insulin antibody levels # Severe sepsis: Had been slowly resolving- Not requiring pressors- Probably due to UTI- Blood, urine cultures growing hernandes-sensitive E coli. However white blood cell count more elevated today -Per ID team, continue Levaquin for now, echocardiogram results reviewed, follow-up HIV screen, repeat procalcitonin, repeat lactic acid, lipase, AFP, PSA -Follow-up repeat blood culture results -Appreciate hematology oncology consult, follow-up results of flow cytometry. #Hypokalemia- Requiring daily PO replacement- -Monitor, replete as needed -Again lactulose has been stopped for the last 3 days secondary to normal ammonia levels at that time #Abdominal distention: Likely secondary to ascites, improving now after paracentesis performed -Monitor for now, follow-up final fluid studies including culture # Acute encephalopathy: Resolved now -Monitor #Hyponatremia - Resolved, monitor # history of alcoholic hepatitis with likely early cirrhosis: And status post paracentesis 2 days ago -Monitor DVT GI prophylaxis: SCDs, H2 nicole Result Diagram: 09/02/18 0454 09/02/18 0454 Results 24hrs Laboratory Tests Test 09/01/18 12:07 09/01/18 17:11 09/01/18 20:37 09/02/18 01:24 Bedside Glucose 82 178 240 H 118 Test 09/02/18 04:54 09/02/18 07:42 White Blood Count 20.0 #H Red Blood Count 3.12 L Hemoglobin 9.5 L Hematocrit 28.3 L Mean Corpuscular 90.7 Volume Mean Corpuscular 30.4 Hemoglobin Mean Corpuscular 33.6 Hemoglobin Concent Red Cell 15.9 H Distribution Width Platelet Count 141 # Mean Platelet Volume 10.0 Immature 2.600 H Granulocytes % Neutrophils % 70.1 Lymphocytes % 13.7 L Monocytes % 12.2 H Eosinophils % 0.8 Basophils % 0.6 Nucleated Red Blood 0.0 Cells % Immature 0.530 H Granulocytes # Neutrophils # 14.0 H Lymphocytes # 2.8 Monocytes # 2.5 H Eosinophils # 0.2 Basophils # 0.1 Nucleated Red Blood 0.0 Cells # Sodium Level 130 L Potassium Level 3.2 L Chloride Level 103 Carbon Dioxide Level 19 L Anion Gap 8 Blood Urea Nitrogen 13 Creatinine 0.95 Est Glomerular > 60 Filtrat Rate mL/min Glucose Level 155 Calcium Level 7.4 L Phosphorus Level 3.8 Magnesium Level 1.7 Total Bilirubin 0.9 Direct Bilirubin 0.00 Indirect Bilirubin 0.9 Aspartate Amino 67 H Transf (AST/SGOT) Alanine 34 Aminotransferase (AL T/SGPT) Alkaline Phosphatase 318 H Ammonia 22 Total Protein 6.6 Albumin 2.0 L Globulin 4.60 H Albumin/Globulin 0.43 Ratio Bedside Glucose 94 Exam/Review of Systems Exam Vitals Vital Signs Date Temp Pulse Resp B/P (MAP) Pulse Ox O2 O2 Flow FiO2 Time Delivery Rate 09/02/18 98.5 108 20 105/74 98 Room Air 11:34 (84) Intake and Output 09/01/18 09/01/18 09/02/18 1515:00 23:00 07:00 IntakeIntake Total 700 ml 200 ml 300 ml OutputOutput Total 950 ml 600 ml 300 ml BalanceBalance -250 ml -400 ml 0 ml Results Results 24hrs Laboratory Tests Test 09/01/18 12:07 09/01/18 17:11 09/01/18 20:37 09/02/18 01:24 Bedside Glucose 82 178 240 H 118 Test 09/02/18 04:54 09/02/18 07:42 White Blood Count 20.0 #H Red Blood Count 3.12 L Hemoglobin 9.5 L Hematocrit 28.3 L Mean Corpuscular 90.7 Volume Mean Corpuscular 30.4 Hemoglobin Mean Corpuscular 33.6 Hemoglobin Concent Red Cell 15.9 H Distribution Width Platelet Count 141 # Mean Platelet Volume 10.0 Immature 2.600 H Granulocytes % Neutrophils % 70.1 Lymphocytes % 13.7 L Monocytes % 12.2 H Eosinophils % 0.8 Basophils % 0.6 Nucleated Red Blood 0.0 Cells % Immature 0.530 H Granulocytes # Neutrophils # 14.0 H Lymphocytes # 2.8 Monocytes # 2.5 H Eosinophils # 0.2 Basophils # 0.1 Nucleated Red Blood 0.0 Cells # Sodium Level 130 L Potassium Level 3.2 L Chloride Level 103 Carbon Dioxide Level 19 L Anion Gap 8 Blood Urea Nitrogen 13 Creatinine 0.95 Est Glomerular > 60 Filtrat Rate mL/min Glucose Level 155 Calcium Level 7.4 L Phosphorus Level 3.8 Magnesium Level 1.7 Total Bilirubin 0.9 Direct Bilirubin 0.00 Indirect Bilirubin 0.9 Aspartate Amino 67 H Transf (AST/SGOT) Alanine 34 Aminotransferase (AL T/SGPT) Alkaline Phosphatase 318 H Ammonia 22 Total Protein 6.6 Albumin 2.0 L Globulin 4.60 H Albumin/Globulin 0.43 Ratio Bedside Glucose 94 Medications Medication Current Medications Ondansetron HCl (Zofran Inj) 4 mg Q6H PRN IV NAUSEA AND/OR VOMITING; Start 08/25/18 at 20:00 Albuterol (Proventil 0.083% (Neb)) 2.5 mg Q2H RESP THERAPY PRN NEB SHORTNESS OF BREATH; Start 08/25/18 at 20:00 Ipratropium [place] (Atrovent 0.02% (Neb)) 0.5 mg Q2H RESP THERAPY PRN NEB SHORTNESS OF BREATH; Start 08/25/18 at 20:00 Acetaminophen (Tylenol Liquid) 650 mg Q6H PRN PO PAIN LEVEL 1-3 OR FEVER Last administered on 08/30/18at 00:45; Admin Dose 650 MG; Start 08/25/18 at 20:00 Morphine Sulfate (morphine) 1 mg Q4H PRN IV PAIN LEVEL 7-10; Start 08/25/18 at 20:00 Potassium Chloride 50 ml @ 50 mls/hr K PROTOCOL PRN IVPB PENDING LAB VALUE Last administered on 08/26/18at 17:23; Admin Dose 50 MLS/HR; Start 08/26/18 at 04:30 Miscellaneous Information 1 ea NOTE XX ; Start 08/26/18 at 05:00 Glucose (Glutose) 15 gm Q15M PRN PO DECREASED GLUCOSE; Start 08/26/18 at 05:00 Glucose (Glutose) 22.5 gm Q15M PRN PO DECREASED GLUCOSE; Start 08/26/18 at 05:00 Dextrose (D50w Syringe) 25 ml Q15M PRN IV DECREASED GLUCOSE; Start 08/26/18 at 05:00 Dextrose (D50w Syringe) 50 ml Q15M PRN IV DECREASED GLUCOSE; Start 08/26/18 at 05:00 Glucagon (Glucagen) 1 mg Q15M PRN IM DECREASED GLUCOSE; Start 08/26/18 at 05:00 Glucose (Glutose) 15 gm Q15M PRN BUCCAL DECREASED GLUCOSE; Start 08/26/18 at 05:00 Folic Acid (Folic Acid) 1 mg DAILY PO Last administered on 09/02/18at 09:02; Admin Dose 1 MG; Start 08/26/18 at 09:00 Multivitamins Therapeutic (Theragran) 1 tab DAILY PO Last administered on 09/02/18at 09:01; Admin Dose 1 TAB; Start 08/26/18 at 09:00 Thiamine HCl (Vitamin B1) 100 mg DAILY PO Last administered on 09/02/18at 09:01; Admin Dose 100 MG; Start 08/26/18 at 09:00 Insulin Aspart (Novolog Insulin Pen) NOVOLOG *MODERATE* ALGORITHM WITH MEALS BEDTIME SC Last administered on 09/01/18 20:41; Admin Dose 2 UNIT; Start 08/26/18 at 11:30 Famotidine (Pepcid) 20 mg DAILY PO Last administered on 09/02/18 09:01; Admin Dose 20 MG; Start 08/27/18 at 09:00 Simethicone (Mylicon) 80 mg Q8 PRN PO DISTENSION/GAS/BLOATING Last administered on 08/27/18 21:52; Admin Dose 80 MG; Start 08/27/18 at 21:00 Potassium Chloride (Klor-Con 20) 60 meq DAILY PO Last administered on 09/02/18 09:02; Admin Dose 60 MEQ; Start 08/29/18 at 09:00 Levofloxacin/ Dextrose 100 ml @ 100 mls/hr Q24H IVPB Last administered on 09/02/18 01:27; Admin Dose 100 MLS/HR; Start 08/30/18 at 01:30 Insulin Glargine (Lantus) 14 units DAILY@2000 SC Last administered on 09/01/18 20:39; Admin Dose 14 UNITS; Start 09/01/18 at 20:00 Potassium Chloride (Klor-Con 20) 40 meq ONCE STAT PO ; Start 09/02/18 at 11:27; Stop 09/02/18 at 11:28; Status ALIS MONGE Sep 02, 2018 11:39
[2018-09-02] MEDS: LINAGLIPTIN 5 MG TABLET PO SCH (13:06)
--- NOTE | 2018-09-02 13:24 | CONS ---
Assessment/Plan Assessment/Plan Problems: (1) Type 2 diabetes mellitus without complications Status: Chronic Comment: BG rising throughout the day. Hyperglycemic last night. Will try to add linagliptin 5 mg and see if there is acceptable response. Reeval tomorrow. Await c-peptide and antibody results to determine diabetes type. Qualifiers: Diabetes mellitus group home insulin use: without rodent exterminator use Qualified Codes: E11.9 - Type 2 diabetes mellitus without complications Consultation Date/Type/Reason Admit Date/Time Aug 25, 2018 at 19:52 Initial Consult Date 09/01/18 Type of Consult Endocrinology Reason for Consultation r/o T1DM vs. T2DM Requesting Provider: ALIS FINE Date/Time of Note DATE: 09/02/18 TIME: 13:18 24 HR Interval Summary Constitutional: no complaints, improved Detailed Summary Respiratory: no complaints Cardiovascular: no complaints Gastrointestinal: no complaints Genitourinary: no complaints Musculoskeletal: no complaints Neurologic: no complaints Exam/Review of Systems Exam Vitals Vital Signs Date Temp Pulse Resp B/P (MAP) Pulse Ox O2 O2 Flow FiO2 Time Delivery Rate 09/02/18 106 12:14 09/02/18 98.5 20 105/74 98 Room Air 11:34 (84) Intake and Output 09/01/18 09/01/18 09/02/18 1515:00 23:00 07:00 IntakeIntake Total 700 ml 200 ml 300 ml OutputOutput Total 950 ml 600 ml 300 ml BalanceBalance -250 ml -400 ml 0 ml Constitutional: alert, oriented, well developed Eyes: icteric Respiratory: clear to auscultation, normal air movement Cardiovascular: regular rate and rhythm, nl pulses; No edema, No murmurs/extra sounds, No rub Gastrointestinal: soft, nl liver, spleen, non-tender, bowel sounds; No mass, No rebound or guarding Musculoskeletal: nl extremities to inspection Extremities: normal pulses; No cyanosis, No clubbing, No edema 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, nl mental status, nl speech, nl strength Additional Comments Bedside Glucose - 72 Hours Test 08/30/18 18:50 08/30/18 20:02 08/31/18 07:51 08/31/18 11:50 Bedside 160 96 76 108 Glucose mg/dL (70-220) mg/dL (70-220) mg/dL (70-220) mg/dL (70-220) Test 08/31/18 17:31 08/31/18 20:39 09/01/18 07:49 09/01/18 08:16 Bedside 140 122 54 87 Glucose mg/dL (70-220) mg/dL (70-220) mg/dL (70-220) mg/dL (70-220) L Test 09/01/18 12:07 09/01/18 17:11 09/01/18 20:37 09/02/18 01:24 Bedside 82 178 240 118 Glucose mg/dL (70-220) mg/dL (70-220) mg/dL (70-220) mg/dL (70-220) H Test 09/02/18 07:42 09/02/18 11:53 Bedside 94 142 Glucose mg/dL (70-220) mg/dL (70-220) Results Result Diagram: 09/02/18 0454 09/02/18 0454 Results 24hrs Laboratory Tests Test 09/01/18 17:11 09/01/18 20:37 09/02/18 01:24 09/02/18 04:54 Bedside Glucose 178 240 H 118 White Blood Count 20.0 #H Red Blood Count 3.12 L Hemoglobin 9.5 L Hematocrit 28.3 L Mean Corpuscular 90.7 Volume Mean Corpuscular 30.4 Hemoglobin Mean Corpuscular 33.6 Hemoglobin Concent Red Cell 15.9 H Distribution Width Platelet Count 141 # Mean Platelet Volume 10.0 Immature 2.600 H Granulocytes % Neutrophils % 70.1 Lymphocytes % 13.7 L Monocytes % 12.2 H Eosinophils % 0.8 Basophils % 0.6 Nucleated Red Blood 0.0 Cells % Immature 0.530 H Granulocytes # Neutrophils # 14.0 H Lymphocytes # 2.8 Monocytes # 2.5 H Eosinophils # 0.2 Basophils # 0.1 Nucleated Red Blood 0.0 Cells # Sodium Level 130 L Potassium Level 3.2 L Chloride Level 103 Carbon Dioxide Level 19 L Anion Gap 8 Blood Urea Nitrogen 13 Creatinine 0.95 Est Glomerular > 60 Filtrat Rate mL/min Glucose Level 155 Calcium Level 7.4 L Phosphorus Level 3.8 Magnesium Level 1.7 Total Bilirubin 0.9 Direct Bilirubin 0.00 Indirect Bilirubin 0.9 Aspartate Amino 67 H Transf (AST/SGOT) Alanine 34 Aminotransferase (AL T/SGPT) Alkaline Phosphatase 318 H Ammonia 22 Total Protein 6.6 Albumin 2.0 L Globulin 4.60 H Albumin/Globulin 0.43 Ratio Test 09/02/18 07:42 09/02/18 11:53 Bedside Glucose 94 142 Medications Medication Current Medications Ondansetron HCl (Zofran Inj) 4 mg Q6H PRN IV NAUSEA AND/OR VOMITING; Start 08/25/18 at 20:00 Albuterol (Proventil 0.083% (Neb)) 2.5 mg Q2H RESP THERAPY PRN NEB SHORTNESS OF BREATH; Start 08/25/18 at 20:00 Ipratropium [place] (Atrovent 0.02% (Neb)) 0.5 mg Q2H RESP THERAPY PRN NEB SHORTNESS OF BREATH; Start 08/25/18 at 20:00 Acetaminophen (Tylenol Liquid) 650 mg Q6H PRN PO PAIN LEVEL 1-3 OR FEVER Last administered on 08/30/18at 00:45; Admin Dose 650 MG; Start 08/25/18 at 20:00 Morphine Sulfate (morphine) 1 mg Q4H PRN IV PAIN LEVEL 7-10; Start 08/25/18 at 20:00 Potassium Chloride 50 ml @ 50 mls/hr K PROTOCOL PRN IVPB PENDING LAB VALUE Last administered on 08/26/18at 17:23; Admin Dose 50 MLS/HR; Start 08/26/18 at 04:30 Miscellaneous Information 1 ea NOTE XX ; Start 08/26/18 at 05:00 Glucose (Glutose) 15 gm Q15M PRN PO DECREASED GLUCOSE; Start 08/26/18 at 05:00 Glucose (Glutose) 22.5 gm Q15M PRN PO DECREASED GLUCOSE; Start 08/26/18 at 05:00 Dextrose (D50w Syringe) 25 ml Q15M PRN IV DECREASED GLUCOSE; Start 08/26/18 at 05:00 Dextrose (D50w Syringe) 50 ml Q15M PRN IV DECREASED GLUCOSE; Start 08/26/18 at 05:00 Glucagon (Glucagen) 1 mg Q15M PRN IM DECREASED GLUCOSE; Start 08/26/18 at 05:00 Glucose (Glutose) 15 gm Q15M PRN BUCCAL DECREASED GLUCOSE; Start 08/26/18 at 05:00 Folic Acid (Folic Acid) 1 mg DAILY PO Last administered on 09/02/18 09:02; Admin Dose 1 MG; Start 08/26/18 at 09:00 Multivitamins Therapeutic (Theragran) 1 tab DAILY PO Last administered on 09/02/18 09:01; Admin Dose 1 TAB; Start 08/26/18 at 09:00 Thiamine HCl (Vitamin B1) 100 mg DAILY PO Last administered on 09/02/18 09:01; Admin Dose 100 MG; Start 08/26/18 at 09:00 Insulin Aspart (Novolog Insulin Pen) NOVOLOG *MODERATE* ALGORITHM WITH MEALS BEDTIME SC Last administered on 09/02/18 12:15; Admin Dose 2 UNIT; Start 08/26/18 at 11:30 Famotidine (Pepcid) 20 mg DAILY PO Last administered on 09/02/18 09:01; Admin Dose 20 MG; Start 08/27/18 at 09:00 Simethicone (Mylicon) 80 mg Q8 PRN PO DISTENSION/GAS/BLOATING Last administered on 08/27/18 21:52; Admin Dose 80 MG; Start 08/27/18 at 21:00 Potassium Chloride (Klor-Con 20) 60 meq DAILY PO Last administered on 09/02/18 09:02; Admin Dose 60 MEQ; Start 08/29/18 at 09:00 Levofloxacin/ Dextrose 100 ml @ 100 mls/hr Q24H IVPB Last administered on 09/02/18 01:27; Admin Dose 100 MLS/HR; Start 08/30/18 at 01:30 Insulin Glargine (Lantus) 14 units DAILY@2000 SC Last administered on 09/01/18 20:39; Admin Dose 14 UNITS; Start 09/01/18 at 20:00 Linagliptin (Tradjenta) 5 mg DAILY PO Last administered on 09/02/18 13:06; Admin Dose 5 MG; Start 09/02/18 at 13:00 DELIO CESPEDES MD Sep 02, 2018 13:24
[2018-09-02] MEDS: INSULIN GLARGINE [LANTus] (100 UNITS/ML) SYG SC SCH (21:08)
--- NOTE | 2018-09-02 21:51 | CONS ---
Assessment/Plan Assessment/Plan Hospital Course (Demo Recall) assessment/impression - severe sepsis (leukocytosis, tachycardia, RR>20 and lactic acid>4) due to bacteremia, UTI and peritonitis - recurrent UTI and bacteremia with the same species of bacteria: concerning for deep seated infection/source. Transthoracic echo on 08/30/2018 showed no e/o valvular vegetation - diarrhea, was on lactulose - ascites - s/p paracentesis on 08/31/2018: WBC 2601, PMNs 54.1%, protein <2, LDH 416, culture negative peritonitis - hepatic encephalopathy on presentation. His head CT on 08/26/2018 showing no acute abnormalities - the presence of immature granulocytes, a reactive process - unintentional 15 lb weight loss: could reflect on-going (occult/deep seated) infection but also his alcoholic hepatitis - recurrent TORIBIO - newly diagnosed with DM: Hgb A1c on 08/26/2018 was 10.2 while that on 07/01/2018 was 6.3 - nonspecific gallbladder wall thickening identified on abd CT and abd MRI in 06/2018 - alcoholic hepatitis, hepatitis ABC screen was negative in 06/2018 - smokes marijuana recommendations: - pending results: ascetic fluid culture from 08/31/2018, flow cytometry - continue levofloxacin (08/30/2018-) 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 Pt previously took pip/tazo (08/24/2018-08/29/2018). For prostatitis, I recommend total 6 weeks of antibiotic (including the dates of pip/tazo), from 08/24/2018 trough 10/05/2018 management d/w Pt, his fiancee Consultation Date/Type/Reason Admit Date/Time Aug 25, 2018 at 19:52 Initial Consult Date 08/29/18 Type of Consult ID Requesting Provider: ALIS FINE Date/Time of Note DATE: 09/02/18 TIME: 21:48 24 HR Interval Summary Constitutional: improved Detailed Summary Eyes: no complaints ENT: no complaints Respiratory: no complaints Cardiovascular: no complaints Gastrointestinal: other (less abdominal bloating); No diarrhea Genitourinary: no complaints Musculoskeletal: no complaints Skin: no complaints Neurologic: no complaints Exam/Review of Systems Exam Vitals Vital Signs Date Temp Pulse Resp B/P (MAP) Pulse Ox O2 O2 Flow FiO2 Time Delivery Rate 09/02/18 114 20:00 09/02/18 99.4 18 108/75 99 19:30 (86) 09/02/18 Room Air 15:33 Intake and Output 09/01/18 09/01/18 09/02/18 1515:00 23:00 07:00 IntakeIntake Total 700 ml 200 ml 300 ml OutputOutput Total 950 ml 600 ml 300 ml BalanceBalance -250 ml -400 ml 0 ml Constitutional: alert, oriented, well developed Psych: no complaints, nl mood/affect Head: normocephalic, atraumatic Eyes: nl conjunctiva, nl lids, icteric ENMT: nl external ears & nose, nl nasal mucosa & septum, mucosa pink and moist Neck: non-tender Respiratory: clear to auscultation, normal air movement Cardiovascular: regular rate and rhythm, nl pulses Gastrointestinal: soft, non-tender; No distended Musculoskeletal: nl extremities to inspection Extremities: No edema 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, nl mental status, nl speech, nl strength Skin: nl turgor; No rash or lesions Results Result Diagram: 09/02/18 0454 09/02/18 0454 Results 24hrs Laboratory Tests Test 09/02/18 01:24 09/02/18 04:54 09/02/18 07:42 09/02/18 11:53 Bedside Glucose 118 94 142 White Blood Count 20.0 #H Red Blood Count 3.12 L Hemoglobin 9.5 L Hematocrit 28.3 L Mean Corpuscular 90.7 Volume Mean Corpuscular 30.4 Hemoglobin Mean Corpuscular 33.6 Hemoglobin Concent Red Cell 15.9 H Distribution Width Platelet Count 141 # Mean Platelet Volume 10.0 Immature 2.600 H Granulocytes % Neutrophils % 70.1 Lymphocytes % 13.7 L Monocytes % 12.2 H Eosinophils % 0.8 Basophils % 0.6 Nucleated Red Blood 0.0 Cells % Immature 0.530 H Granulocytes # Neutrophils # 14.0 H Lymphocytes # 2.8 Monocytes # 2.5 H Eosinophils # 0.2 Basophils # 0.1 Nucleated Red Blood 0.0 Cells # Sodium Level 130 L Potassium Level 3.2 L Chloride Level 103 Carbon Dioxide Level 19 L Anion Gap 8 Blood Urea Nitrogen 13 Creatinine 0.95 Est Glomerular > 60 Filtrat Rate mL/min Glucose Level 155 Calcium Level 7.4 L Phosphorus Level 3.8 Magnesium Level 1.7 Total Bilirubin 0.9 Direct Bilirubin 0.00 Indirect Bilirubin 0.9 Aspartate Amino 67 H Transf (AST/SGOT) Alanine 34 Aminotransferase (AL T/SGPT) Alkaline Phosphatase 318 H Ammonia 22 Total Protein 6.6 Albumin 2.0 L Globulin 4.60 H Albumin/Globulin 0.43 Ratio Test 09/02/18 17:32 09/02/18 20:19 Bedside Glucose 127 145 Medications Medication Current Medications Ondansetron HCl (Zofran Inj) 4 mg Q6H PRN IV NAUSEA AND/OR VOMITING; Start 08/25/18 at 20:00 Albuterol (Proventil 0.083% (Neb)) 2.5 mg Q2H RESP THERAPY PRN NEB SHORTNESS OF BREATH; Start 08/25/18 at 20:00 Ipratropium [place] (Atrovent 0.02% (Neb)) 0.5 mg Q2H RESP THERAPY PRN NEB SHORTNESS OF BREATH; Start 08/25/18 at 20:00 Acetaminophen (Tylenol Liquid) 650 mg Q6H PRN PO PAIN LEVEL 1-3 OR FEVER Last administered on 08/30/18at 00:45; Admin Dose 650 MG; Start 08/25/18 at 20:00 Morphine Sulfate (morphine) 1 mg Q4H PRN IV PAIN LEVEL 7-10; Start 08/25/18 at 20:00 Potassium Chloride 50 ml @ 50 mls/hr K PROTOCOL PRN IVPB PENDING LAB VALUE Last administered on 08/26/18at 17:23; Admin Dose 50 MLS/HR; Start 08/26/18 at 04:30 Miscellaneous Information 1 ea NOTE XX ; Start 08/26/18 at 05:00 Glucose (Glutose) 15 gm Q15M PRN PO DECREASED GLUCOSE; Start 08/26/18 at 05:00 Glucose (Glutose) 22.5 gm Q15M PRN PO DECREASED GLUCOSE; Start 08/26/18 at 05:00 Dextrose (D50w Syringe) 25 ml Q15M PRN IV DECREASED GLUCOSE; Start 08/26/18 at 05:00 Dextrose (D50w Syringe) 50 ml Q15M PRN IV DECREASED GLUCOSE; Start 08/26/18 at 05:00 Glucagon (Glucagen) 1 mg Q15M PRN IM DECREASED GLUCOSE; Start 08/26/18 at 05:00 Glucose (Glutose) 15 gm Q15M PRN BUCCAL DECREASED GLUCOSE; Start 08/26/18 at 05:00 Folic Acid (Folic Acid) 1 mg DAILY PO Last administered on 09/02/18 09:02; Admin Dose 1 MG; Start 08/26/18 at 09:00 Multivitamins Therapeutic (Theragran) 1 tab DAILY PO Last administered on 09/02/18 09:01; Admin Dose 1 TAB; Start 08/26/18 at 09:00 Thiamine HCl (Vitamin B1) 100 mg DAILY PO Last administered on 09/02/18 09:01; Admin Dose 100 MG; Start 08/26/18 at 09:00 Insulin Aspart (Novolog Insulin Pen) NOVOLOG *MODERATE* ALGORITHM WITH MEALS BEDTIME SC Last administered on 09/02/18 12:15; Admin Dose 2 UNIT; Start 08/26/18 at 11:30 Famotidine (Pepcid) 20 mg DAILY PO Last administered on 09/02/18 09:01; Admin Dose 20 MG; Start 08/27/18 at 09:00 Simethicone (Mylicon) 80 mg Q8 PRN PO DISTENSION/GAS/BLOATING Last administered on 08/27/18 21:52; Admin Dose 80 MG; Start 08/27/18 at 21:00 Potassium Chloride (Klor-Con 20) 60 meq DAILY PO Last administered on 09/02/18 09:02; Admin Dose 60 MEQ; Start 08/29/18 at 09:00 Levofloxacin/ Dextrose 100 ml @ 100 mls/hr Q24H IVPB Last administered on 09/02/18 01:27; Admin Dose 100 MLS/HR; Start 08/30/18 at 01:30 Insulin Glargine (Lantus) 14 units DAILY@2000 SC Last administered on 09/02/18 21:08; Admin Dose 14 UNITS; Start 09/01/18 at 20:00 Linagliptin (Tradjenta) 5 mg DAILY PO Last administered on 09/02/18 13:06; Admin Dose 5 MG; Start 09/02/18 at 13:00 ZAINAB WASHBURN M.D. Sep 02, 2018 21:51
[2018-09-03] VITALS (11 sets, daily range): BP systolic 102–122; BP diastolic 63–78; PULSE 70–127; RESP 18–19
[2018-09-03] MEDS: LEVOFLOXACIN 500MG/D5W (PMX) 100 ML IVPB SCH (01:41)
[2018-09-03] MEDS: INSULIN ASPART [NOVOLOG] 3 ML PEN SC SCH ×4 (07:46→21:00)
[2018-09-03] MEDS: FOLIC ACID 1 MG TAB PO SCH (08:20)
[2018-09-03] MEDS: LINAGLIPTIN 5 MG TABLET PO SCH (08:20)
[2018-09-03] MEDS: MULTIVITAMINS THERAPEUTIC TAB PO SCH (08:20)
[2018-09-03] MEDS: FAMOTIDINE 20 MG TAB PO SCH (08:20)
[2018-09-03] MEDS: THIAMINE 100 MG TAB PO SCH (08:20)
[2018-09-03] MEDS: POTASSIUM CHLORIDE (SR) 20 MEQ TAB PO SCH (08:21)
[2018-09-03] MEDS ORDERED: MAGNESIUM SULFATE 2 GM/50 ML 50 ML IVPB ONE (09:00)
--- NOTE | 2018-09-03 09:56 | PN ---
DATE: 09/03/2018 SUBJECTIVE: The patient is stable. No events overnight. OBJECTIVE: VITAL SIGNS: Blood pressure is 105/70, pulse 70, respirations 18, temperature 98.1. HEENT: Head is normocephalic. NECK: Supple. HEART: Regular rate. LUNGS: Show diminished breath sounds at the base. ABDOMEN: Soft, nontender to palpation without rebound or guarding. EXTREMITIES: Negative for clubbing, cyanosis, no edema. DERMATOLOGIC: No rashes. MUSCULOSKELETAL: No joint effusion. NEUROLOGIC: No change in exam. MEDICATIONS: Reviewed. LABORATORY DATA: Reviewed. IMAGES STUDIES: Reviewed. ASSESSMENT AND PLAN: 1. Nonoliguric acute kidney injury. Etiology is secondary to hemodynamics. Renal function is impro andrez. Continue to monitor. 2. Hypomagnesemia. Etiology is likely due to renal magnesium wasting due to chronic ETOH abuse. Co ntinue to monitor and replete. 3. Hyperkalemia. Etiology is in part due to hypomagnesemia and total body deficit. Continue to cor rect underlying hypomagnesemia. Continue to replete and correct underlying hypokalemia. 4. Hypernatremia. Continue to monitor. Limit free water intake. 5. Anemia. Monitor hemoglobin and hematocrit levels. 6. Mineral bone disorder. Monitor calcium and phosphorus levels. 7. Severe sepsis secondary to urinary tract infection. The patient is completing antibiotic course. 8. History of ETOH abuse. Monitor for withdrawals. Possible ETOH hepatitis. Continue to monitor. 9. Diabetes. Continue current insulin regimen. Dictated By: EMILY CARLSON DO NR/NTS Conf#: [id number] DID#: [id number] CC: APRIL SALAZAR MD; ALIS FINE; ZAINAB WASHBURN MD;*EndCC*
--- NOTE | 2018-09-03 13:21 | CONS ---
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 if PT >20, given Vit K 5 mg sq x 1 Consultation Date/Type/Reason Admit Date/Time Aug 25, 2018 at 19:52 Initial Consult Date 08/29/18 Requesting Provider: ALIS FINE Date/Time of Note DATE: 09/03/18 TIME: 13:21 Exam/Review of Systems Exam Vitals Vital Signs Date Temp Pulse Resp B/P (MAP) Pulse Ox O2 O2 Flow FiO2 Time Delivery Rate 09/03/18 114 12:19 09/03/18 98.6 18 107/75 96 11:38 (86) 09/02/18 Room Air 15:33 Intake and Output 09/02/18 09/02/18 09/03/18 1515:00 23:00 07:00 IntakeIntake Total 840 ml 240 ml 400 ml OutputOutput Total 1101 ml 600 ml 400 ml BalanceBalance -261 ml -360 ml 0 ml Constitutional: alert, oriented, well developed, frail Eyes: icteric Results Result Diagram: 09/03/18 0517 09/03/18 0517 Results 24hrs Laboratory Tests Test 09/02/18 17:32 09/02/18 20:19 09/03/18 05:17 09/03/18 07:45 Bedside Glucose 127 145 124 White Blood Count 19.7 H Red Blood Count 3.07 L Hemoglobin 9.4 L Hematocrit 28.0 L Mean Corpuscular 91.2 Volume Mean Corpuscular 30.6 Hemoglobin Mean Corpuscular 33.6 Hemoglobin Concent Red Cell 15.9 H Distribution Width Platelet Count 166 Mean Platelet Volume 10.0 Immature 2.900 H Granulocytes % Neutrophils % 68.9 Lymphocytes % 15.4 Monocytes % 11.2 H Eosinophils % 1.1 Basophils % 0.5 Nucleated Red Blood 0.0 Cells % Immature 0.580 H Granulocytes # Neutrophils # 13.6 H Lymphocytes # 3.0 H Monocytes # 2.2 H Eosinophils # 0.2 Basophils # 0.1 Nucleated Red Blood 0.0 Cells # Sodium Level 133 L Potassium Level 3.2 L Chloride Level 106 Carbon Dioxide Level 19 L Anion Gap 8 Blood Urea Nitrogen 11 Creatinine 0.97 Est Glomerular > 60 Filtrat Rate mL/min Glucose Level 94 # Calcium Level 7.5 L Phosphorus Level 3.9 Magnesium Level 1.5 L Test 09/03/18 12:02 Bedside Glucose 84 Medications Medication Current Medications Ondansetron HCl (Zofran Inj) 4 mg Q6H PRN IV NAUSEA AND/OR VOMITING; Start 08/25/18 at 20:00 Albuterol (Proventil 0.083% (Neb)) 2.5 mg Q2H RESP THERAPY PRN NEB SHORTNESS OF BREATH; Start 08/25/18 at 20:00 Ipratropium [place] (Atrovent 0.02% (Neb)) 0.5 mg Q2H RESP THERAPY PRN NEB SHORTNESS OF BREATH; Start 08/25/18 at 20:00 Acetaminophen (Tylenol Liquid) 650 mg Q6H PRN PO PAIN LEVEL 1-3 OR FEVER Last administered on 08/30/18at 00:45; Admin Dose 650 MG; Start 08/25/18 at 20:00 Morphine Sulfate (morphine) 1 mg Q4H PRN IV PAIN LEVEL 7-10; Start 08/25/18 at 20:00 Potassium Chloride 50 ml @ 50 mls/hr K PROTOCOL PRN IVPB PENDING LAB VALUE Last administered on 08/26/18at 17:23; Admin Dose 50 MLS/HR; Start 08/26/18 at 04:30 Miscellaneous Information 1 ea NOTE XX ; Start 08/26/18 at 05:00 Glucose (Glutose) 15 gm Q15M PRN PO DECREASED GLUCOSE; Start 08/26/18 at 05:00 Glucose (Glutose) 22.5 gm Q15M PRN PO DECREASED GLUCOSE; Start 08/26/18 at 05:00 Dextrose (D50w Syringe) 25 ml Q15M PRN IV DECREASED GLUCOSE; Start 08/26/18 at 05:00 Dextrose (D50w Syringe) 50 ml Q15M PRN IV DECREASED GLUCOSE; Start 08/26/18 at 05:00 Glucagon (Glucagen) 1 mg Q15M PRN IM DECREASED GLUCOSE; Start 08/26/18 at 05:00 Glucose (Glutose) 15 gm Q15M PRN BUCCAL DECREASED GLUCOSE; Start 08/26/18 at 05:00 Folic Acid (Folic Acid) 1 mg DAILY PO Last administered on 09/03/18 08:20; Admin Dose 1 MG; Start 08/26/18 at 09:00 Multivitamins Therapeutic (Theragran) 1 tab DAILY PO Last administered on 09/03/18 08:20; Admin Dose 1 TAB; Start 08/26/18 at 09:00 Thiamine HCl (Vitamin B1) 100 mg DAILY PO Last administered on 09/03/18 08:20; Admin Dose 100 MG; Start 08/26/18 at 09:00 Insulin Aspart (Novolog Insulin Pen) NOVOLOG *MODERATE* ALGORITHM WITH MEALS BEDTIME SC Last administered on 09/02/18 12:15; Admin Dose 2 UNIT; Start 08/26/18 at 11:30 Famotidine (Pepcid) 20 mg DAILY PO Last administered on 09/03/18 08:20; Admin Dose 20 MG; Start 08/27/18 at 09:00 Simethicone (Mylicon) 80 mg Q8 PRN PO DISTENSION/GAS/BLOATING Last administered on 08/27/18 21:52; Admin Dose 80 MG; Start 08/27/18 at 21:00 Potassium Chloride (Klor-Con 20) 60 meq DAILY PO Last administered on 09/03/18 08:21; Admin Dose 60 MEQ; Start 08/29/18 at 09:00 Levofloxacin/ Dextrose 100 ml @ 100 mls/hr Q24H IVPB Last administered on 09/03/18 01:41; Admin Dose 100 MLS/HR; Start 08/30/18 at 01:30 Insulin Glargine (Lantus) 14 units DAILY@2000 SC Last administered on 09/02/18 21:08; Admin Dose 14 UNITS; Start 09/01/18 at 20:00 Linagliptin (Tradjenta) 5 mg DAILY PO Last administered on 09/03/18 08:20; Admin Dose 5 MG; Start 09/02/18 at 13:00 CHRISTIAN HERNANDES Sep 03, 2018 13:21
--- NOTE | 2018-09-03 13:23 | CONS ---
Assessment/Plan Assessment/Plan Hospital Course (Demo Recall) assessment/impression - severe sepsis (leukocytosis, tachycardia, RR>20 and lactic acid>4) due to bacteremia, UTI and peritonitis - recurrent UTI and bacteremia with the same species of bacteria: concerning for deep seated infection/source, possibly prostate. Transthoracic echo on 08/30/2018 showed no e/o valvular vegetation - diarrhea, was on lactulose - ascites - s/p paracentesis on 08/31/2018: WBC 2601, PMNs 54.1%, protein <2, LDH 416, culture negative peritonitis - hepatic encephalopathy on presentation. His head CT on 08/26/2018 showing no acute abnormalities - the presence of immature granulocytes, a reactive process - unintentional 15 lb weight loss: could reflect on-going (occult/deep seated) infection but also his alcoholic hepatitis - recurrent TORIBIO - newly diagnosed with DM: Hgb A1c on 08/26/2018 was 10.2 while that on 07/01/2018 was 6.3 - nonspecific gallbladder wall thickening identified on abd CT and abd MRI in 06/2018 - alcoholic hepatitis, hepatitis ABC screen was negative in 06/2018 - smokes marijuana recommendations: - pending results: flow cytometry - continue levofloxacin (08/30/2018-) 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 Pt previously took pip/tazo (08/24/2018-08/29/2018). For prostatitis, I recommend total 6 weeks of antibiotic (including the dates of pip/tazo), from 08/24/2018 trough 10/05/2018 management d/w Pt, his mother Consultation Date/Type/Reason Admit Date/Time Aug 25, 2018 at 19:52 Initial Consult Date 08/29/18 Type of Consult ID Requesting Provider: ALIS FINE Date/Time of Note DATE: 09/03/18 TIME: 13:21 24 HR Interval Summary Constitutional: improved Detailed Summary Eyes: no complaints ENT: no complaints Respiratory: no complaints Cardiovascular: no complaints Gastrointestinal: no complaints Genitourinary: no complaints Musculoskeletal: no complaints Skin: no complaints Neurologic: no complaints Exam/Review of Systems Exam Vitals Vital Signs Date Temp Pulse Resp B/P (MAP) Pulse Ox O2 O2 Flow FiO2 Time Delivery Rate 09/03/18 114 12:19 09/03/18 98.6 18 107/75 96 11:38 (86) 09/02/18 Room Air 15:33 Intake and Output 09/02/18 09/02/18 09/03/18 1515:00 23:00 07:00 IntakeIntake Total 840 ml 240 ml 400 ml OutputOutput Total 1101 ml 600 ml 400 ml BalanceBalance -261 ml -360 ml 0 ml Constitutional: alert, oriented, well developed Psych: no complaints, nl mood/affect Head: normocephalic, atraumatic Eyes: nl conjunctiva, nl lids, icteric ENMT: nl external ears & nose, nl nasal mucosa & septum, mucosa pink and moist Neck: No non-tender Respiratory: clear to auscultation, normal air movement Cardiovascular: regular rate and rhythm, nl pulses Gastrointestinal: soft, non-tender, distended (slightly) Musculoskeletal: nl extremities to inspection Extremities: No edema 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: CLINICAL ORTHOPTIST II-XII intact, nl mental status, nl speech, nl strength Skin: nl turgor, other (trace jaundiced) Results Result Diagram: 09/03/1817 09/03/18 0517 Results 24hrs Laboratory Tests Test 09/02/18 17:32 09/02/18 20:19 09/03/18 05:17 09/03/18 07:45 Bedside Glucose 127 145 124 White Blood Count 19.7 H Red Blood Count 3.07 L Hemoglobin 9.4 L Hematocrit 28.0 L Mean Corpuscular 91.2 Volume Mean Corpuscular 30.6 Hemoglobin Mean Corpuscular 33.6 Hemoglobin Concent Red Cell 15.9 H Distribution Width Platelet Count 166 Mean Platelet Volume 10.0 Immature 2.900 H Granulocytes % Neutrophils % 68.9 Lymphocytes % 15.4 Monocytes % 11.2 H Eosinophils % 1.1 Basophils % 0.5 Nucleated Red Blood 0.0 Cells % Immature 0.580 H Granulocytes # Neutrophils # 13.6 H Lymphocytes # 3.0 H Monocytes # 2.2 H Eosinophils # 0.2 Basophils # 0.1 Nucleated Red Blood 0.0 Cells # Sodium Level 133 L Potassium Level 3.2 L Chloride Level 106 Carbon Dioxide Level 19 L Anion Gap 8 Blood Urea Nitrogen 11 Creatinine 0.97 Est Glomerular > 60 Filtrat Rate mL/min Glucose Level 94 # Calcium Level 7.5 L Phosphorus Level 3.9 Magnesium Level 1.5 L Test 09/03/18 12:02 Bedside Glucose 84 Medications Medication Current Medications Ondansetron HCl (Zofran Inj) 4 mg Q6H PRN IV NAUSEA AND/OR VOMITING; Start 08/25/18 at 20:00 Albuterol (Proventil 0.083% (Neb)) 2.5 mg Q2H RESP THERAPY PRN NEB SHORTNESS OF BREATH; Start 08/25/18 at 20:00 Ipratropium [place] (Atrovent 0.02% (Neb)) 0.5 mg Q2H RESP THERAPY PRN NEB SHORTNESS OF BREATH; Start 08/25/18 at 20:00 Acetaminophen (Tylenol Liquid) 650 mg Q6H PRN PO PAIN LEVEL 1-3 OR FEVER Last administered on 08/30/18at 00:45; Admin Dose 650 MG; Start 08/25/18 at 20:00 Morphine Sulfate (morphine) 1 mg Q4H PRN IV PAIN LEVEL 7-10; Start 08/25/18 at 20:00 Potassium Chloride 50 ml @ 50 mls/hr K PROTOCOL PRN IVPB PENDING LAB VALUE Last administered on 08/26/18at 17:23; Admin Dose 50 MLS/HR; Start 08/26/18 at 04:30 Miscellaneous Information 1 ea NOTE XX ; Start 08/26/18 at 05:00 Glucose (Glutose) 15 gm Q15M PRN PO DECREASED GLUCOSE; Start 08/26/18 at 05:00 Glucose (Glutose) 22.5 gm Q15M PRN PO DECREASED GLUCOSE; Start 08/26/18 at 05:00 Dextrose (D50w Syringe) 25 ml Q15M PRN IV DECREASED GLUCOSE; Start 08/26/18 at 05:00 Dextrose (D50w Syringe) 50 ml Q15M PRN IV DECREASED GLUCOSE; Start 08/26/18 at 05:00 Glucagon (Glucagen) 1 mg Q15M PRN IM DECREASED GLUCOSE; Start 08/26/18 at 05:00 Glucose (Glutose) 15 gm Q15M PRN BUCCAL DECREASED GLUCOSE; Start 08/26/18 at 05:00 Folic Acid (Folic Acid) 1 mg DAILY PO Last administered on 09/03/18at 08:20; Admin Dose 1 MG; Start 08/26/18 at 09:00 Multivitamins Therapeutic (Theragran) 1 tab DAILY PO Last administered on 09/03/18 08:20; Admin Dose 1 TAB; Start 08/26/18 at 09:00 Thiamine HCl (Vitamin B1) 100 mg DAILY PO Last administered on 09/03/18 08:20; Admin Dose 100 MG; Start 08/26/18 at 09:00 Insulin Aspart (Novolog Insulin Pen) NOVOLOG *MODERATE* ALGORITHM WITH MEALS BEDTIME SC Last administered on 09/02/18 12:15; Admin Dose 2 UNIT; Start 08/26/18 at 11:30 Famotidine (Pepcid) 20 mg DAILY PO Last administered on 09/03/18 08:20; Admin Dose 20 MG; Start 08/27/18 at 09:00 Simethicone (Mylicon) 80 mg Q8 PRN PO DISTENSION/GAS/BLOATING Last administered on 08/27/18 21:52; Admin Dose 80 MG; Start 08/27/18 at 21:00 Potassium Chloride (Klor-Con 20) 60 meq DAILY PO Last administered on 09/03/18 08:21; Admin Dose 60 MEQ; Start 08/29/18 at 09:00 Levofloxacin/ Dextrose 100 ml @ 100 mls/hr Q24H IVPB Last administered on 09/03/18 01:41; Admin Dose 100 MLS/HR; Start 08/30/18 at 01:30 Insulin Glargine (Lantus) 14 units DAILY@2000 SC Last administered on 09/02/18 21:08; Admin Dose 14 UNITS; Start 09/01/18 at 20:00 Linagliptin (Tradjenta) 5 mg DAILY PO Last administered on 09/03/18 08:20; Admin Dose 5 MG; Start 09/02/18 at 13:00 ZAINAB WASHBURN M.D. Sep 03, 2018 13:23
--- NOTE | 2018-09-03 14:33 | PN ---
Date/Time of Note Date/Time of Note DATE: 09/03/18 TIME: 14:29 Assessment/Plan VTE Prophylaxis Risk score (from Nsg)>0 risk: 0 SCD applied (from Nsg): Yes Pharmacological prophylaxis: other Lines/Catheters IV Catheter Type (from Nrsg): Saline Lock Urinary Cath still in place: No Assessment/Plan Hospital Course S: Patient had no acute events overnight. O: VS- see below PE: General: Lying in bed, no acute distress HEENT: Atraumatic, normocephalic. The pupils are equal, round and reactive. Extraocular motor are intact, mucous membranes moist Neck: Supple with full range of motion. No rigidity or meningismus Chest: Nontender Lungs: Clear to auscultation bilaterally no crackles rales or wheezing Heart: Normal S1-S2, Regular rhythm and rate. No murmur, S3, or S4 Abdomen: Soft , slightly more distended abdomen/ascites, bowel sounds are present. No guarding no rebound tenderness Extremities: No lower exam edema bilaterally 2D echo: Conclusions: Normal left ventricular systolic function. Normal left ventricular cavity size. Left ventricular wall thickness upper limits of normal. Ejection fraction is visually estimated at 55 %. Tissue Doppler/Mitral Doppler indices are consistent with impaired relaxation (Stage I diastolic dysfunction). Mild mitral leaflet calcification. Mild mitral annular calcification. Trace mitral regurgitation. No evidence of endocarditis. No significant aortic stenosis or insufficiency. Aortic cusps appear mildly calcified. Normal appearance of the tricuspid valve. The estimated Peak RVSP is 26 mmHg. There is trace tricuspid regurgitation. No evidence of endocarditis. Assessment/Plan: 38 yo man with newly diagnosed diabetes and history of alcoholic hepatitis presents with UTI in hyperosmolar hyperglycemic state. #Diabetes mellitus- newly diagnosed A1c 10.2. -Patient also presented with hyperglycemia. Sugars improved now. -Continue insulin sliding scale and glargine qhs per endocrinology recommendations -Follow-up insulin antibody levels and further endocrinology recommendations # Severe sepsis: Had been slowly resolving- Not requiring pressors- Probably due to UTI- Blood, urine cultures growing hernandes-sensitive E coli. 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 -Follow-up repeat blood culture results -Appreciate hematology oncology consult, follow-up results of flow cytometry- still pending #Hypokalemia- Requiring daily PO replacement- -Monitor, replete as needed -Again lactulose has been stopped for the last 3 days secondary to normal ammonia levels at that time #Abdominal distention: Likely secondary to ascites, improving now after paracentesis performed -Monitor for now, follow-up final fluid studies including culture # Acute encephalopathy: Resolved now -Monitor #Hyponatremia - Resolved, monitor # history of alcoholic hepatitis with likely early cirrhosis: Status post paracentesis 3 days ago -Monitor DVT GI prophylaxis: SCDs, H2 nicole Result Diagram: 09/03/18 0517 09/03/18 0517 Results 24hrs Laboratory Tests Test 09/02/18 17:32 09/02/18 20:19 09/03/18 05:17 09/03/18 07:45 Bedside Glucose 127 145 124 White Blood Count 19.7 H Red Blood Count 3.07 L Hemoglobin 9.4 L Hematocrit 28.0 L Mean Corpuscular 91.2 Volume Mean Corpuscular 30.6 Hemoglobin Mean Corpuscular 33.6 Hemoglobin Concent Red Cell 15.9 H Distribution Width Platelet Count 166 Mean Platelet Volume 10.0 Immature 2.900 H Granulocytes % Neutrophils % 68.9 Lymphocytes % 15.4 Monocytes % 11.2 H Eosinophils % 1.1 Basophils % 0.5 Nucleated Red Blood 0.0 Cells % Immature 0.580 H Granulocytes # Neutrophils # 13.6 H Lymphocytes # 3.0 H Monocytes # 2.2 H Eosinophils # 0.2 Basophils # 0.1 Nucleated Red Blood 0.0 Cells # Sodium Level 133 L Potassium Level 3.2 L Chloride Level 106 Carbon Dioxide Level 19 L Anion Gap 8 Blood Urea Nitrogen 11 Creatinine 0.97 Est Glomerular > 60 Filtrat Rate mL/min Glucose Level 94 # Calcium Level 7.5 L Phosphorus Level 3.9 Magnesium Level 1.5 L Test 09/03/18 12:02 Bedside Glucose 84 Exam/Review of Systems Exam Vitals Vital Signs Date Temp Pulse Resp B/P (MAP) Pulse Ox O2 O2 Flow FiO2 Time Delivery Rate 09/03/18 114 12:19 09/03/18 98.6 18 107/75 96 11:38 (86) 09/02/18 Room Air 15:33 Intake and Output 09/02/18 09/02/18 09/03/18 1515:00 23:00 07:00 IntakeIntake Total 840 ml 240 ml 400 ml OutputOutput Total 1101 ml 600 ml 400 ml BalanceBalance -261 ml -360 ml 0 ml Results Results 24hrs Laboratory Tests Test 09/02/18 17:32 09/02/18 20:19 09/03/18 05:17 09/03/18 07:45 Bedside Glucose 127 145 124 White Blood Count 19.7 H Red Blood Count 3.07 L Hemoglobin 9.4 L Hematocrit 28.0 L Mean Corpuscular 91.2 Volume Mean Corpuscular 30.6 Hemoglobin Mean Corpuscular 33.6 Hemoglobin Concent Red Cell 15.9 H Distribution Width Platelet Count 166 Mean Platelet Volume 10.0 Immature 2.900 H Granulocytes % Neutrophils % 68.9 Lymphocytes % 15.4 Monocytes % 11.2 H Eosinophils % 1.1 Basophils % 0.5 Nucleated Red Blood 0.0 Cells % Immature 0.580 H Granulocytes # Neutrophils # 13.6 H Lymphocytes # 3.0 H Monocytes # 2.2 H Eosinophils # 0.2 Basophils # 0.1 Nucleated Red Blood 0.0 Cells # Sodium Level 133 L Potassium Level 3.2 L Chloride Level 106 Carbon Dioxide Level 19 L Anion Gap 8 Blood Urea Nitrogen 11 Creatinine 0.97 Est Glomerular > 60 Filtrat Rate mL/min Glucose Level 94 # Calcium Level 7.5 L Phosphorus Level 3.9 Magnesium Level 1.5 L Test 09/03/18 12:02 Bedside Glucose 84 Medications Medication Current Medications Ondansetron HCl (Zofran Inj) 4 mg Q6H PRN IV NAUSEA AND/OR VOMITING; Start 08/25/18 at 20:00 Albuterol (Proventil 0.083% (Neb)) 2.5 mg Q2H RESP THERAPY PRN NEB SHORTNESS OF BREATH; Start 08/25/18 at 20:00 Ipratropium [place] (Atrovent 0.02% (Neb)) 0.5 mg Q2H RESP THERAPY PRN NEB SHORTNESS OF BREATH; Start 08/25/18 at 20:00 Acetaminophen (Tylenol Liquid) 650 mg Q6H PRN PO PAIN LEVEL 1-3 OR FEVER Last administered on 08/30/18at 00:45; Admin Dose 650 MG; Start 08/25/18 at 20:00 Morphine Sulfate (morphine) 1 mg Q4H PRN IV PAIN LEVEL 7-10; Start 08/25/18 at 20:00 Potassium Chloride 50 ml @ 50 mls/hr K PROTOCOL PRN IVPB PENDING LAB VALUE Last administered on 08/26/18at 17:23; Admin Dose 50 MLS/HR; Start 08/26/18 at 04:30 Miscellaneous Information 1 ea NOTE XX ; Start 08/26/18 at 05:00 Glucose (Glutose) 15 gm Q15M PRN PO DECREASED GLUCOSE; Start 08/26/18 at 05:00 Glucose (Glutose) 22.5 gm Q15M PRN PO DECREASED GLUCOSE; Start 08/26/18 at 05:00 Dextrose (D50w Syringe) 25 ml Q15M PRN IV DECREASED GLUCOSE; Start 08/26/18 at 05:00 Dextrose (D50w Syringe) 50 ml Q15M PRN IV DECREASED GLUCOSE; Start 08/26/18 at 05:00 Glucagon (Glucagen) 1 mg Q15M PRN IM DECREASED GLUCOSE; Start 08/26/18 at 05:00 Glucose (Glutose) 15 gm Q15M PRN BUCCAL DECREASED GLUCOSE; Start 08/26/18 at 05:00 Folic Acid (Folic Acid) 1 mg DAILY PO Last administered on 09/03/18at 08:20; Admin Dose 1 MG; Start 08/26/18 at 09:00 Multivitamins Therapeutic (Theragran) 1 tab DAILY PO Last administered on 09/03/18at 08:20; Admin Dose 1 TAB; Start 08/26/18 at 09:00 Thiamine HCl (Vitamin B1) 100 mg DAILY PO Last administered on 09/03/18at 08:20; Admin Dose 100 MG; Start 08/26/18 at 09:00 Insulin Aspart (Novolog Insulin Pen) NOVOLOG *MODERATE* ALGORITHM WITH MEALS BEDTIME SC Last administered on 09/02/18at 12:15; Admin Dose 2 UNIT; Start 08/26/18 at 11:30 Famotidine (Pepcid) 20 mg DAILY PO Last administered on 09/03/18at 08:20; Admin Dose 20 MG; Start 08/27/18 at 09:00 Simethicone (Mylicon) 80 mg Q8 PRN PO DISTENSION/GAS/BLOATING Last administered on 08/27/18at 21:52; Admin Dose 80 MG; Start 08/27/18 at 21:00 Potassium Chloride (Klor-Con 20) 60 meq DAILY PO Last administered on 09/03/18at 08:21; Admin Dose 60 MEQ; Start 08/29/18 at 09:00 Levofloxacin/ Dextrose 100 ml @ 100 mls/hr Q24H IVPB Last administered on 09/03/18at 01:41; Admin Dose 100 MLS/HR; Start 08/30/18 at 01:30 Insulin Glargine (Lantus) 14 units DAILY@2000 SC Last administered on 09/02/18at 21:08; Admin Dose 14 UNITS; Start 09/01/18 at 20:00 Linagliptin (Tradjenta) 5 mg DAILY PO Last administered on 09/03/18at 08:20; Admin Dose 5 MG; Start 09/02/18 at 13:00 ALIS FINE Sep 03, 2018 14:33
--- NOTE | 2018-09-03 17:37 | CONS ---
Assessment/Plan Assessment/Plan Problems: (1) Type 2 diabetes mellitus without complications Status: Chronic Comment: c-peptide > 2. Anti-MAGNUS-65 ab (-). Highly unlikely to be T1DM. Diagnosis is likely T2DM. Will stop lantus. Add metformin 500 mg bid which should be safe in cirrhosis. Pt. did present w/ acute renal insufficiency when he was profoundly hyperglycemia. Doubt will recur. Should be safe to be on metformin. Will monitor glucose control on metformin and linagliptin and see if glucose can remain in control. Reeval tomorrow. Qualifiers: Diabetes mellitus terminologist insulin use: without terminologist use Qualified Codes: E11.9 - Type 2 diabetes mellitus without complications Consultation Date/Type/Reason Admit Date/Time Aug 25, 2018 at 19:52 Initial Consult Date 09/01/18 Type of Consult Endocrinology Reason for Consultation r/o T1 vs. T2DM Requesting Provider: ALIS FINE Date/Time of Note DATE: 09/03/18 TIME: 17:32 24 HR Interval Summary Constitutional: no complaints, improved Detailed Summary Respiratory: no complaints Cardiovascular: no complaints Gastrointestinal: no complaints Genitourinary: no complaints Musculoskeletal: no complaints Neurologic: no complaints Exam/Review of Systems Exam Vitals VS - Last 72 Hours, by Label Date Temp Pulse Resp B/P (MAP) Pulse Ox O2 O2 Flow FiO2 Time Delivery Rate 09/03/18 115 16:31 09/03/18 98.1 110 19 116/78 96 15:59 (91) 09/03/18 114 12:19 09/03/18 98.6 110 18 107/75 96 11:38 (86) 09/03/18 114 09:13 09/03/18 98.1 70 18 105/70 96 07:28 (82) 09/03/18 98.6 122 107/ 99 04:23 09/03/18 126 04:00 09/03/18 99.0 112 18 122/63 98 00:06 (82) 09/03/18 127 00:00 09/02/18 114 20:00 09/02/18 99.4 116 18 108/75 99 19:30 (86) 09/02/18 110 16:34 09/02/18 98.7 110 20 110/72 99 Room Air 15:33 (85) 09/02/18 106 12:14 09/02/18 98.5 108 20 105/74 98 Room Air 11:34 (84) 09/02/18 100 08:11 09/02/18 98.5 103 20 100/67 98 Room Air 07:48 (78) 09/02/18 98.3 91 18 108/73 97 04:56 (85) 09/02/18 105 04:00 09/02/18 107 00:00 09/02/18 98.5 99 18 110/71 97 00:00 (84) 09/01/18 98.9 115 18 106/75 97 20:00 (85) 09/01/18 114 20:00 09/01/18 119 16:12 09/01/18 98.9 113 18 110/77 97 Room Air 15:24 (88) 09/01/18 122 12:15 09/01/18 99.1 121 20 102/79 96 Room Air 11:16 (87) 09/01/18 128 08:14 09/01/18 99.0 122 20 106/74 96 04:05 (85) 09/01/18 116 04:00 09/01/18 123 00:00 08/31/18 99.6 119 20 102/62 97 23:52 (75) 08/31/18 113 20:00 08/31/18 99.2 109 20 117/76 97 Room Air 19:51 (90) Vital Signs Date Temp Pulse Resp B/P (MAP) Pulse Ox O2 O2 Flow FiO2 Time Delivery Rate 09/03/18 115 16:31 09/03/18 98.1 19 116/78 96 15:59 (91) 09/02/18 Room Air 15:33 Intake and Output 09/02/18 09/02/18 09/03/18 1515:00 23:00 07:00 IntakeIntake Total 840 ml 240 ml 400 ml OutputOutput Total 1101 ml 600 ml 400 ml BalanceBalance -261 ml -360 ml 0 ml Constitutional: alert, oriented, well developed Psych: no complaints, nl mood/affect Eyes: icteric Respiratory: clear to auscultation, normal air movement Cardiovascular: regular rate and rhythm, nl pulses; No edema, No murmurs/extra sounds, No rub Gastrointestinal: soft, nl liver, spleen, non-tender, bowel sounds, distended; No mass, No rebound or guarding Musculoskeletal: nl extremities to inspection Extremities: normal pulses; No cyanosis, No clubbing, No edema 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: [employer] II-XII intact, nl mental status, nl speech, nl strength Additional Comments Bedside Glucose - 72 Hours Test 08/31/18 20:39 09/01/18 07:49 09/01/18 08:16 09/01/18 12:07 Bedside 122 54 87 82 Glucose mg/dL (70-220) mg/dL (70-220) mg/dL (70-220) mg/dL (70-220) L Test 09/01/18 17:11 09/01/18 20:37 09/02/18 01:24 09/02/18 07:42 Bedside 178 240 118 94 Glucose mg/dL (70-220) mg/dL (70-220) mg/dL (70-220) mg/dL (70-220) H Test 09/02/18 11:53 09/02/18 17:32 09/02/18 20:19 09/03/18 07:45 Bedside 142 127 145 124 Glucose mg/dL (70-220) mg/dL (70-220) mg/dL (70-220) mg/dL (70-220) Test 09/03/18 12:02 09/03/18 17:03 Bedside 84 114 Glucose mg/dL (70-220) mg/dL (70-220) Results Result Diagram: 09/03/1817 09/03/18 0517 Results 24hrs Laboratory Tests Test 09/02/18 20:19 09/03/18 05:17 09/03/18 07:45 09/03/18 12:02 Bedside Glucose 145 124 84 White Blood Count 19.7 H Red Blood Count 3.07 L Hemoglobin 9.4 L Hematocrit 28.0 L Mean Corpuscular 91.2 Volume Mean Corpuscular 30.6 Hemoglobin Mean Corpuscular 33.6 Hemoglobin Concent Red Cell 15.9 H Distribution Width Platelet Count 166 Mean Platelet Volume 10.0 Immature 2.900 H Granulocytes % Neutrophils % 68.9 Lymphocytes % 15.4 Monocytes % 11.2 H Eosinophils % 1.1 Basophils % 0.5 Nucleated Red Blood 0.0 Cells % Immature 0.580 H Granulocytes # Neutrophils # 13.6 H Lymphocytes # 3.0 H Monocytes # 2.2 H Eosinophils # 0.2 Basophils # 0.1 Nucleated Red Blood 0.0 Cells # Sodium Level 133 L Potassium Level 3.2 L Chloride Level 106 Carbon Dioxide Level 19 L Anion Gap 8 Blood Urea Nitrogen 11 Creatinine 0.97 Est Glomerular > 60 Filtrat Rate mL/min Glucose Level 94 # Calcium Level 7.5 L Phosphorus Level 3.9 Magnesium Level 1.5 L Test 09/03/18 17:03 Bedside Glucose 114 Medications Medication Current Medications Ondansetron HCl (Zofran Inj) 4 mg Q6H PRN IV NAUSEA AND/OR VOMITING; Start 08/25/18 at 20:00 Albuterol (Proventil 0.083% (Neb)) 2.5 mg Q2H RESP THERAPY PRN NEB SHORTNESS OF BREATH; Start 08/25/18 at 20:00 Ipratropium [place] (Atrovent 0.02% (Neb)) 0.5 mg Q2H RESP THERAPY PRN NEB SHORTNESS OF BREATH; Start 08/25/18 at 20:00 Acetaminophen (Tylenol Liquid) 650 mg Q6H PRN PO PAIN LEVEL 1-3 OR FEVER Last administered on 08/30/18at 00:45; Admin Dose 650 MG; Start 08/25/18 at 20:00 Morphine Sulfate (morphine) 1 mg Q4H PRN IV PAIN LEVEL 7-10; Start 08/25/18 at 20:00 Potassium Chloride 50 ml @ 50 mls/hr K PROTOCOL PRN IVPB PENDING LAB VALUE Last administered on 08/26/18at 17:23; Admin Dose 50 MLS/HR; Start 08/26/18 at 04:30 Miscellaneous Information 1 ea NOTE XX ; Start 08/26/18 at 05:00 Glucose (Glutose) 15 gm Q15M PRN PO DECREASED GLUCOSE; Start 08/26/18 at 05:00 Glucose (Glutose) 22.5 gm Q15M PRN PO DECREASED GLUCOSE; Start 08/26/18 at 05:00 Dextrose (D50w Syringe) 25 ml Q15M PRN IV DECREASED GLUCOSE; Start 08/26/18 at 05:00 Dextrose (D50w Syringe) 50 ml Q15M PRN IV DECREASED GLUCOSE; Start 08/26/18 at 05:00 Glucagon (Glucagen) 1 mg Q15M PRN IM DECREASED GLUCOSE; Start 08/26/18 at 05:00 Glucose (Glutose) 15 gm Q15M PRN BUCCAL DECREASED GLUCOSE; Start 08/26/18 at 05:00 Folic Acid (Folic Acid) 1 mg DAILY PO Last administered on 09/03/18 08:20; Admin Dose 1 MG; Start 08/26/18 at 09:00 Multivitamins Therapeutic (Theragran) 1 tab DAILY PO Last administered on 09/03/18 08:20; Admin Dose 1 TAB; Start 08/26/18 at 09:00 Thiamine HCl (Vitamin B1) 100 mg DAILY PO Last administered on 09/03/18 08:20; Admin Dose 100 MG; Start 08/26/18 at 09:00 Insulin Aspart (Novolog Insulin Pen) NOVOLOG *MODERATE* ALGORITHM WITH MEALS BEDTIME SC Last administered on 09/02/18 12:15; Admin Dose 2 UNIT; Start 08/26/18 at 11:30 Famotidine (Pepcid) 20 mg DAILY PO Last administered on 09/03/18 08:20; Admin Dose 20 MG; Start 08/27/18 at 09:00 Simethicone (Mylicon) 80 mg Q8 PRN PO DISTENSION/GAS/BLOATING Last administered on 08/27/18 21:52; Admin Dose 80 MG; Start 08/27/18 at 21:00 Potassium Chloride (Klor-Con 20) 60 meq DAILY PO Last administered on 09/03/18 08:21; Admin Dose 60 MEQ; Start 08/29/18 at 09:00 Levofloxacin/ Dextrose 100 ml @ 100 mls/hr Q24H IVPB Last administered on 09/03 01:41; Admin Dose 100 MLS/HR; Start 08/30/18 at 01:30 Insulin Glargine (Lantus) 14 units DAILY@2000 SC Last administered on 09/02/18 21:08; Admin Dose 14 UNITS; Start 09/01/18 at 20:00 Linagliptin (Tradjenta) 5 mg DAILY PO Last administered on 09/03/18 08:20; Admin Dose 5 MG; Start 09/02/18 at 13:00 DELIO CESPEDES MD Sep 03, 2018 17:36
[2018-09-03] MEDS: metFORMIN 500 MG TAB PO SCH (17:47)
[2018-09-03] MEDS ORDERED: SOD CHLORIDE 0.9% 500 ML IV ONE (22:30)
[2018-09-04] VITALS (11 sets, daily range): BP systolic 97–111; BP diastolic 62–73; PULSE 69–128; RESP 18–19
[2018-09-04] MEDS: LEVOFLOXACIN 500MG/D5W (PMX) 100 ML IVPB SCH (02:07)
[2018-09-04] MEDS: INSULIN ASPART [NOVOLOG] 3 ML PEN SC SCH ×4 (07:59→21:00)
[2018-09-04] MEDS: MULTIVITAMINS THERAPEUTIC TAB PO SCH (08:08)
[2018-09-04] MEDS: LINAGLIPTIN 5 MG TABLET PO SCH (08:08)
[2018-09-04] MEDS: THIAMINE 100 MG TAB PO SCH (08:08)
[2018-09-04] MEDS: FOLIC ACID 1 MG TAB PO SCH (08:08)
[2018-09-04] MEDS: FAMOTIDINE 20 MG TAB PO SCH (08:08)
[2018-09-04] MEDS: POTASSIUM CHLORIDE (SR) 20 MEQ TAB PO SCH (08:09)
[2018-09-04] MEDS: metFORMIN 500 MG TAB PO SCH ×2 (08:09→17:31)
--- NOTE | 2018-09-04 09:55 | CONS ---
Assessment/Plan Assessment/Plan Hospital Course (Demo Recall) - severe sepsis (leukocytosis, tachycardia, RR>20 and lactic acid>4) due to bacteremia, UTI and peritonitis - recurrent UTI and bacteremia with the same species of bacteria: concerning for deep seated infection/source, possibly prostate. Transthoracic echo on 08/30/2018 showed no e/o valvular vegetation - diarrhea, was on lactulose - ascites - s/p paracentesis on 08/31/2018: WBC 2601, PMNs 54.1%, protein <2, LDH 416, culture negative peritonitis - hepatic encephalopathy on presentation. His head CT on 08/26/2018 showing no acute abnormalities - the presence of immature granulocytes, a reactive process - unintentional 15 lb weight loss: could reflect on-going (occult/deep seated) infection but also his alcoholic hepatitis - recurrent TORIBIO - newly diagnosed with DM: Hgb A1c on 08/26/2018 was 10.2 while that on 07/01/2018 was 6.3 - nonspecific gallbladder wall thickening identified on abd CT and abd MRI in 06/2018 - alcoholic hepatitis, hepatitis ABC screen was negative in 06/2018 - smokes marijuana recommendations: - pending results: flow cytometry - continue levofloxacin (08/30/2018-) 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 Pt previously took pip/tazo (08/24/2018-08/29/2018). For prostatitis, I recommend total 6 weeks of antibiotic Consultation Date/Type/Reason Admit Date/Time Aug 25, 2018 at 19:52 Initial Consult Date 09/01/18 Requesting Provider: ALIS FINE Date/Time of Note DATE: 09/04/18 TIME: 09:55 Exam/Review of Systems Exam Vitals Vital Signs Date Temp Pulse Resp B/P (MAP) Pulse Ox O2 O2 Flow FiO2 Time Delivery Rate 09/04/18 109 08:00 09/04/18 98.3 19 99/69 (79) 97 07:36 09/02/18 Room Air 15:33 Intake and Output 09/03/18 09/03/18 09/04/18 1515:00 23:00 07:00 IntakeIntake Total 1170 ml 578 ml 400 ml OutputOutput Total 600 ml BalanceBalance 1170 ml -22 ml 400 ml Constitutional: alert, oriented, well developed Psych: no complaints, nl mood/affect Head: normocephalic, atraumatic Eyes: nl conjunctiva, EOMI, nl lids, nl sclera, PERRL ENMT: nl external ears & nose, nl lips & teeth, nl nasal mucosa & septum Neck: supple, non-tender Respiratory: clear to auscultation, normal air movement Cardiovascular: regular rate and rhythm, nl pulses Gastrointestinal: soft, nl liver, spleen, non-tender 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: WRAP TURNER II-XII intact, nl mental status, nl speech, nl strength Results Result Diagram: 09/03/18 0517 09/04/18 0429 Results 24hrs Laboratory Tests Test 09/03/18 12:02 09/03/18 17:03 09/03/18 20:38 09/04/18 04:29 Bedside Glucose 84 114 113 Sodium Level 132 L Potassium Level 3.4 L Chloride Level 105 Carbon Dioxide Level 18 L Anion Gap 9 Blood Urea Nitrogen 11 Creatinine 1.03 Est Glomerular > 60 Filtrat Rate mL/min Glucose Level 104 Calcium Level 7.5 L Phosphorus Level 4.4 Magnesium Level 1.7 Ammonia 23 Test 09/04/18 07:37 Bedside Glucose 295 H Medications Medication Current Medications Ondansetron HCl (Zofran Inj) 4 mg Q6H PRN IV NAUSEA AND/OR VOMITING; Start 08/25/18 at 20:00 Albuterol (Proventil 0.083% (Neb)) 2.5 mg Q2H RESP THERAPY PRN NEB SHORTNESS OF BREATH; Start 08/25/18 at 20:00 Ipratropium [place] (Atrovent 0.02% (Neb)) 0.5 mg Q2H RESP THERAPY PRN NEB SHORTNESS OF BREATH; Start 08/25/18 at 20:00 Acetaminophen (Tylenol Liquid) 650 mg Q6H PRN PO PAIN LEVEL 1-3 OR FEVER Last administered on 08/30/18at 00:45; Admin Dose 650 MG; Start 08/25/18 at 20:00 Morphine Sulfate (morphine) 1 mg Q4H PRN IV PAIN LEVEL 7-10; Start 08/25/18 at 20:00 Potassium Chloride 50 ml @ 50 mls/hr K PROTOCOL PRN IVPB PENDING LAB VALUE Last administered on 08/26/18at 17:23; Admin Dose 50 MLS/HR; Start 08/26/18 at 04:30 Miscellaneous Information 1 ea NOTE XX ; Start 08/26/18 at 05:00 Glucose (Glutose) 15 gm Q15M PRN PO DECREASED GLUCOSE; Start 08/26/18 at 05:00 Glucose (Glutose) 22.5 gm Q15M PRN PO DECREASED GLUCOSE; Start 08/26/18 at 05:00 Dextrose (D50w Syringe) 25 ml Q15M PRN IV DECREASED GLUCOSE; Start 08/26/18 at 05:00 Dextrose (D50w Syringe) 50 ml Q15M PRN IV DECREASED GLUCOSE; Start 08/26/18 at 05:00 Glucagon (Glucagen) 1 mg Q15M PRN IM DECREASED GLUCOSE; Start 08/26/18 at 05:00 Glucose (Glutose) 15 gm Q15M PRN BUCCAL DECREASED GLUCOSE; Start 08/26/18 at 05:00 Folic Acid (Folic Acid) 1 mg DAILY PO Last administered on 09/04/18at 08:08; Admin Dose 1 MG; Start 08/26/18 at 09:00 Multivitamins Therapeutic (Theragran) 1 tab DAILY PO Last administered on 09/04/18at 08:08; Admin Dose 1 TAB; Start 08/26/18 at 09:00 Thiamine HCl (Vitamin B1) 100 mg DAILY PO Last administered on 09/04/18at 08:08; Admin Dose 100 MG; Start 08/26/18 at 09:00 Insulin Aspart (Novolog Insulin Pen) NOVOLOG *MODERATE* ALGORITHM WITH MEALS BEDTIME SC Last administered on 09/04/18at 07:59; Admin Dose 8 UNIT; Start 08/26/18 at 11:30 Famotidine (Pepcid) 20 mg DAILY PO Last administered on 09/04/18at 08:08; Admin Dose 20 MG; Start 08/27/18 at 09:00 Simethicone (Mylicon) 80 mg Q8 PRN PO DISTENSION/GAS/BLOATING Last administered on 08/27/18at 21:52; Admin Dose 80 MG; Start 08/27/18 at 21:00 Potassium Chloride (Klor-Con 20) 60 meq DAILY PO Last administered on 09/04/18at 08:09; Admin Dose 60 MEQ; Start 08/29/18 at 09:00 Levofloxacin/ Dextrose 100 ml @ 100 mls/hr Q24H IVPB Last administered on 09/04/18 02:07; Admin Dose 100 MLS/HR; Start 08/30/18 at 01:30 Linagliptin (Tradjenta) 5 mg DAILY PO Last administered on 09/04/18 08:08; Admin Dose 5 MG; Start 09/02/18 at 13:00 Metformin HCl (Glucophage) 500 mg BID WITH MEALS PO Last administered on 09/04/18 08:09; Admin Dose 500 MG; Start 09/03/18 at 18:00 GURMEET KING MD Sep 04, 2018 09:55
--- NOTE | 2018-09-04 10:11 | CONS ---
Consult Date/Type/Reason Admit Date/Time Aug 25, 2018 at 19:52 Initial Consult Date 09/01/18 Requesting Provider: ALIS FINE Date/Time of Note DATE: 09/04/18 TIME: 10:10 Subjective The patient is stable. No events overnight. . HEENT: Head is normocephalic. NECK: Supple. HEART: Regular rate. LUNGS: Show diminished breath sounds at the base. ABDOMEN: Soft, nontender to palpation without rebound or guarding. EXTREMITIES: Negative for clubbing, cyanosis, no edema. DERMATOLOGIC: No rashes. MUSCULOSKELETAL: No joint effusion. NEUROLOGIC: No change in exam. Objective Vitals Vital Signs Date Temp Pulse Resp B/P (MAP) Pulse Ox O2 O2 Flow FiO2 Time Delivery Rate 09/04/18 109 08:00 09/04/18 98.3 19 99/69 (79) 97 07:36 09/02/18 Room Air 15:33 Intake and Output 09/03/18 09/03/18 09/04/18 1515:00 23:00 07:00 IntakeIntake Total 1170 ml 578 ml 400 ml OutputOutput Total 600 ml BalanceBalance 1170 ml -22 ml 400 ml Results/Medications Result Diagram: 09/03/18 0517 09/04/18 0429 Results 24 hrs Laboratory Tests Test 09/03/18 12:02 09/03/18 17:03 09/03/18 20:38 09/04/18 04:29 Bedside Glucose 84 114 113 Sodium Level 132 L Potassium Level 3.4 L Chloride Level 105 Carbon Dioxide Level 18 L Anion Gap 9 Blood Urea Nitrogen 11 Creatinine 1.03 Est Glomerular > 60 Filtrat Rate mL/min Glucose Level 104 Calcium Level 7.5 L Phosphorus Level 4.4 Magnesium Level 1.7 Ammonia 23 Test 09/04/18 07:37 Bedside Glucose 295 H Home Meds Reported Medications Ferrous Sulfate* (Ferrous Sulfate*) 325 Mg [place], 325 MG PO DAILY, TAB 08/25/18 Lorazepam* (Lorazepam*) 1 Mg Tablet, 1 MG PO Q12H PRN for ANXIETY for 15 Days, #30 08/25/18 Cholecalciferol* (Vitamin D*) 400 Unit Tablet, 800 UNIT PO DAILY, TAB 06/24/17 Medications Current Medications Ondansetron HCl (Zofran Inj) 4 mg Q6H PRN IV NAUSEA AND/OR VOMITING; Start 08/25/18 at 20:00 Albuterol (Proventil 0.083% (Neb)) 2.5 mg Q2H RESP THERAPY PRN NEB SHORTNESS OF BREATH; Start 08/25/18 at 20:00 Ipratropium [place] (Atrovent 0.02% (Neb)) 0.5 mg Q2H RESP THERAPY PRN NEB SHORTNESS OF BREATH; Start 08/25/18 at 20:00 Acetaminophen (Tylenol Liquid) 650 mg Q6H PRN PO PAIN LEVEL 1-3 OR FEVER Last administered on 08/30/18at 00:45; Admin Dose 650 MG; Start 08/25/18 at 20:00 Morphine Sulfate (morphine) 1 mg Q4H PRN IV PAIN LEVEL 7-10; Start 08/25/18 at 20:00 Potassium Chloride 50 ml @ 50 mls/hr K PROTOCOL PRN IVPB PENDING LAB VALUE Last administered on 08/26/18at 17:23; Admin Dose 50 MLS/HR; Start 08/26/18 at 04:30 Miscellaneous Information 1 ea NOTE XX ; Start 08/26/18 at 05:00 Glucose (Glutose) 15 gm Q15M PRN PO DECREASED GLUCOSE; Start 08/26/18 at 05:00 Glucose (Glutose) 22.5 gm Q15M PRN PO DECREASED GLUCOSE; Start 08/26/18 at 05:00 Dextrose (D50w Syringe) 25 ml Q15M PRN IV DECREASED GLUCOSE; Start 08/26/18 at 05:00 Dextrose (D50w Syringe) 50 ml Q15M PRN IV DECREASED GLUCOSE; Start 08/26/18 at 05:00 Glucagon (Glucagen) 1 mg Q15M PRN IM DECREASED GLUCOSE; Start 08/26/18 at 05:00 Glucose (Glutose) 15 gm Q15M PRN BUCCAL DECREASED GLUCOSE; Start 08/26/18 at 05:00 Folic Acid (Folic Acid) 1 mg DAILY PO Last administered on 09/04/18at 08:08; Admin Dose 1 MG; Start 08/26/18 at 09:00 Multivitamins Therapeutic (Theragran) 1 tab DAILY PO Last administered on 09/04/18at 08:08; Admin Dose 1 TAB; Start 08/26/18 at 09:00 Thiamine HCl (Vitamin B1) 100 mg DAILY PO Last administered on 09/04/18 08:08; Admin Dose 100 MG; Start 08/26/18 at 09:00 Insulin Aspart (Novolog Insulin Pen) NOVOLOG *MODERATE* ALGORITHM WITH MEALS BEDTIME SC Last administered on 09/04/18 07:59; Admin Dose 8 UNIT; Start 08/26/18 at 11:30 Famotidine (Pepcid) 20 mg DAILY PO Last administered on 09/04/18 08:08; Admin Dose 20 MG; Start 08/27/18 at 09:00 Simethicone (Mylicon) 80 mg Q8 PRN PO DISTENSION/GAS/BLOATING Last administered on 08/27/18 21:52; Admin Dose 80 MG; Start 08/27/18 at 21:00 Potassium Chloride (Klor-Con 20) 60 meq DAILY PO Last administered on 09/04/18 08:09; Admin Dose 60 MEQ; Start 08/29/18 at 09:00 Levofloxacin/ Dextrose 100 ml @ 100 mls/hr Q24H IVPB Last administered on 09/04/18 02:07; Admin Dose 100 MLS/HR; Start 08/30/18 at 01:30 Linagliptin (Tradjenta) 5 mg DAILY PO Last administered on 09/04/18 08:08; Admin Dose 5 MG; Start 09/02/18 at 13:00 Metformin HCl (Glucophage) 500 mg BID WITH MEALS PO Last administered on 09/04/18 08:09; Admin Dose 500 MG; Start 09/03/18 at 18:00 Empaglifozin (Jardiance) 25 mg DAILY@08 PO ; Start 09/04/18 at 10:00 Assessment/Plan Assessment/Plan (Daily) 1. Nonoliguric acute kidney injury. Etiology is secondary to hemodynamics. Renal function is improved. Continue to monitor. 2. Hypomagnesemia. Etiology is likely due to renal magnesium wasting due to chronic ETOH abuse. Continue to monitor and replete. 3. Hypokalemia. Etiology is in part due to hypomagnesemia and total body deficit. Continue to correct underlying hypomagnesemia. Continue to replete and correct underlying hypokalemia. 4. Hyponatremia. Continue to monitor. Limit free water intake. 5. Anemia. Monitor hemoglobin and hematocrit levels. 6. Mineral bone disorder. Monitor calcium and phosphorus levels. 7. Severe sepsis secondary to urinary tract infection. The patient is completing antibiotic course. 8. History of ETOH abuse. Monitor for withdrawals. Possible ETOH hepatitis. Continue to monitor. 9. Diabetes. Continue current insulin regimen. FLO ZAVALA MD Sep 04, 2018 10:11
--- NOTE | 2018-09-04 10:16 | CONS ---
Assessment/Plan Assessment/Plan Problems: (1) Type 2 diabetes mellitus without complications Status: Chronic Comment: Addition of metformin to replace insulin failed to provide glycemic control overnight. Possible he was given hs snack but nothing in notes re: this. Will add empagliflozin 25 mg this am, which may also help w/ his ascites. If this is ineffective to control glucose will resume hs lantus. 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 Qualified Codes: E11.9 - Type 2 diabetes mellitus without complications Consultation Date/Type/Reason Admit Date/Time Aug 25, 2018 at 19:52 Initial Consult Date 09/01/18 Type of Consult Endocrinology Reason for Consultation R/o T1DM vs T2DM Requesting Provider: ALIS FINE Date/Time of Note DATE: 09/04/18 TIME: 10:13 24 HR Interval Summary Constitutional: no complaints Detailed Summary Respiratory: no complaints Cardiovascular: no complaints Gastrointestinal: other (distended) Genitourinary: no complaints Musculoskeletal: no complaints Neurologic: no complaints Exam/Review of Systems Exam Vitals VS - Last 72 Hours, by Label Date Temp Pulse Resp B/P (MAP) Pulse Ox O2 O2 Flow FiO2 Time Delivery Rate 09/04/18 109 08:00 09/04/18 98.3 79 19 99/69 (79) 97 07:36 09/04/18 106 04:00 09/04/18 98.5 99 18 108/73 98 04:00 (85) 09/04/18 121 00:00 09/04/18 98.3 115 18 111/73 98 00:00 (86) 09/03/18 98.4 118 19 102/72 97 20:00 (82) 09/03/18 119 20:00 09/03/18 115 16:31 09/03/18 98.1 110 19 116/78 96 15:59 (91) 09/03/18 114 12:19 09/03/18 98.6 110 18 107/75 96 11:38 (86) 09/03/18 114 09:13 09/03/18 98.1 70 18 105/70 96 07:28 (82) 09/03/18 98.6 122 107/ 99 04:23 09/03/18 126 04:00 09/03/18 99.0 112 18 122/63 98 00:06 (82) 09/03/18 127 00:00 09/02/18 114 20:00 09/02/18 99.4 116 18 108/75 99 19:30 (86) 09/02/18 110 16:34 09/02/18 98.7 110 20 110/72 99 Room Air 15:33 (85) 09/02/18 106 12:14 09/02/18 98.5 108 20 105/74 98 Room Air 11:34 (84) 09/02/18 100 08:11 09/02/18 98.5 103 20 100/67 98 Room Air 07:48 (78) 09/02/18 98.3 91 18 108/73 97 04:56 (85) 09/02/18 105 04:00 09/02/18 107 00:00 09/02/18 98.5 99 18 110/71 97 00:00 (84) 09/01/18 98.9 115 18 106/75 97 20:00 (85) 09/01/18 114 20:00 09/01/18 119 16:12 09/01/18 98.9 113 18 110/77 97 Room Air 15:24 (88) 09/01/18 122 12:15 09/01/18 99.1 121 20 102/79 96 Room Air 11:16 (87) Vital Signs Date Temp Pulse Resp B/P (MAP) Pulse Ox O2 O2 Flow FiO2 Time Delivery Rate 09/04/18 109 08:00 09/04/18 98.3 19 99/69 (79) 97 07:36 09/02/18 Room Air 15:33 Intake and Output 09/03/18 09/03/18 09/04/18 1515:00 23:00 07:00 IntakeIntake Total 1170 ml 578 ml 400 ml OutputOutput Total 600 ml BalanceBalance 1170 ml -22 ml 400 ml Eyes: icteric Respiratory: clear to auscultation, normal air movement Cardiovascular: regular rate and rhythm, nl pulses; No edema, No murmurs/extra sounds, No rub Gastrointestinal: soft, nl liver, spleen, non-tender, ascites, bowel sounds, distended Musculoskeletal: nl extremities to inspection Extremities: normal pulses; No cyanosis, No clubbing, No edema 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, nl mental status, nl speech, nl strength Additional Comments Bedside Glucose - 72 Hours Test 09/01/18 12:07 09/01/18 17:11 09/01/18 20:37 09/02/18 01:24 Bedside 82 178 240 118 Glucose mg/dL (70-220) mg/dL (70-220) mg/dL (70-220) mg/dL (70-220) H Test 09/02/18 07:42 09/02/18 11:53 09/02/18 17:32 09/02/18 20:19 Bedside 94 142 127 145 Glucose mg/dL (70-220) mg/dL (70-220) mg/dL (70-220) mg/dL (70-220) Test 09/03/18 07:45 09/03/18 12:02 09/03/18 17:03 09/03/18 20:38 Bedside 124 84 114 113 Glucose mg/dL (70-220) mg/dL (70-220) mg/dL (70-220) mg/dL (70-220) Test 09/04/18 07:37 Bedside 295 Glucose mg/dL (70-220) H Results Result Diagram: 09/03/18 0517 09/04/18 0429 Results 24hrs Laboratory Tests Test 09/03/18 12:02 09/03/18 17:03 09/03/18 20:38 09/04/18 04:29 Bedside Glucose 84 114 113 Sodium Level 132 L Potassium Level 3.4 L Chloride Level 105 Carbon Dioxide Level 18 L Anion Gap 9 Blood Urea Nitrogen 11 Creatinine 1.03 Est Glomerular > 60 Filtrat Rate mL/min Glucose Level 104 Calcium Level 7.5 L Phosphorus Level 4.4 Magnesium Level 1.7 Ammonia 23 Test 09/04/18 07:37 Bedside Glucose 295 H Medications Medication Current Medications Ondansetron HCl (Zofran Inj) 4 mg Q6H PRN IV NAUSEA AND/OR VOMITING; Start 08/25/18 at 20:00 Albuterol (Proventil 0.083% (Neb)) 2.5 mg Q2H RESP THERAPY PRN NEB SHORTNESS OF BREATH; Start 08/25/18 at 20:00 Ipratropium [place] (Atrovent 0.02% (Neb)) 0.5 mg Q2H RESP THERAPY PRN NEB SHORTNESS OF BREATH; Start 08/25/18 at 20:00 Acetaminophen (Tylenol Liquid) 650 mg Q6H PRN PO PAIN LEVEL 1-3 OR FEVER Last administered on 08/30/18at 00:45; Admin Dose 650 MG; Start 08/25/18 at 20:00 Morphine Sulfate (morphine) 1 mg Q4H PRN IV PAIN LEVEL 7-10; Start 08/25/18 at 20:00 Potassium Chloride 50 ml @ 50 mls/hr K PROTOCOL PRN IVPB PENDING LAB VALUE Last administered on 08/26/18at 17:23; Admin Dose 50 MLS/HR; Start 08/26/18 at 04:30 Miscellaneous Information 1 ea NOTE XX ; Start 08/26/18 at 05:00 Glucose (Glutose) 15 gm Q15M PRN PO DECREASED GLUCOSE; Start 08/26/18 at 05:00 Glucose (Glutose) 22.5 gm Q15M PRN PO DECREASED GLUCOSE; Start 08/26/18 at 05:00 Dextrose (D50w Syringe) 25 ml Q15M PRN IV DECREASED GLUCOSE; Start 08/26/18 at 05:00 Dextrose (D50w Syringe) 50 ml Q15M PRN IV DECREASED GLUCOSE; Start 08/26/18 at 05:00 Glucagon (Glucagen) 1 mg Q15M PRN IM DECREASED GLUCOSE; Start 08/26/18 at 05:00 Glucose (Glutose) 15 gm Q15M PRN BUCCAL DECREASED GLUCOSE; Start 08/26/18 at 05:00 Folic Acid (Folic Acid) 1 mg DAILY PO Last administered on 09/04/18at 08:08; Admin Dose 1 MG; Start 08/26/18 at 09:00 Multivitamins Therapeutic (Theragran) 1 tab DAILY PO Last administered on 09/04/18at 08:08; Admin Dose 1 TAB; Start 08/26/18 at 09:00 Thiamine HCl (Vitamin B1) 100 mg DAILY PO Last administered on 09/04/18 08:08; Admin Dose 100 MG; Start 08/26/18 at 09:00 Insulin Aspart (Novolog Insulin Pen) NOVOLOG *MODERATE* ALGORITHM WITH MEALS BEDTIME SC Last administered on 09/04/18at 07:59; Admin Dose 8 UNIT; Start 08/26/18 at 11:30 Famotidine (Pepcid) 20 mg DAILY PO Last administered on 09/04/18at 08:08; Admin Dose 20 MG; Start 08/27/18 at 09:00 Simethicone (Mylicon) 80 mg Q8 PRN PO DISTENSION/GAS/BLOATING Last administered on 08/27/18at 21:52; Admin Dose 80 MG; Start 08/27/18 at 21:00 Potassium Chloride (Klor-Con 20) 60 meq DAILY PO Last administered on 09/04/18 08:09; Admin Dose 60 MEQ; Start 08/29/18 at 09:00 Levofloxacin/ Dextrose 100 ml @ 100 mls/hr Q24H IVPB Last administered on 09/04/18at 02:07; Admin Dose 100 MLS/HR; Start 08/30/18 at 01:30 Linagliptin (Tradjenta) 5 mg DAILY PO Last administered on 09/04/18at 08:08; Admin Dose 5 MG; Start 09/02/18 at 13:00 Metformin HCl (Glucophage) 500 mg BID WITH MEALS PO Last administered on 09/04/18 08:09; Admin Dose 500 MG; Start 09/03/18 at 18:00 Empaglifozin (Jardiance) 25 mg DAILY@08 PO ; Start 09/04/18 at 10:00 DELIO CESPEDES MD Sep 04, 2018 10:16
[2018-09-04] MEDS: EMPAGLIFLOZIN 10 MG TABLET PO SCH (10:41)
--- NOTE | 2018-09-04 14:16 | PN ---
Date/Time of Note Date/Time of Note DATE: 09/04/18 TIME: 14:10 Assessment/Plan VTE Prophylaxis Risk score (from Nsg)>0 risk: 0 SCD applied (from Nsg): Yes Pharmacological prophylaxis: other Lines/Catheters IV Catheter Type (from Nrsg): [place] Urinary Cath still in place: No Assessment/Plan Hospital Course S: Patient had no acute events overnight. O: VS- see below PE: General: Lying in bed, no acute distress HEENT: Atraumatic, normocephalic. The pupils are equal, round and reactive. Extraocular motor are intact, mucous membranes moist Neck: Supple with full range of motion. No rigidity or meningismus Chest: Nontender Lungs: Clear to auscultation bilaterally no crackles rales or wheezing Heart: Normal S1-S2, Regular rhythm and rate. No murmur, S3, or S4 Abdomen: Soft , slightly more distended abdomen/ascites, bowel sounds are present. No guarding no rebound tenderness Extremities: No lower exam edema bilaterally 2D echo: Conclusions: Normal left ventricular systolic function. Normal left ventricular cavity size. Left ventricular wall thickness upper limits of normal. Ejection fraction is visually estimated at 55 %. Tissue Doppler/Mitral Doppler indices are consistent with impaired relaxation (Stage I diastolic dysfunction). Mild mitral leaflet calcification. Mild mitral annular calcification. Trace mitral regurgitation. No evidence of endocarditis. No significant aortic stenosis or insufficiency. Aortic cusps appear mildly calcified. Normal appearance of the tricuspid valve. The estimated Peak RVSP is 26 mmHg. There is trace tricuspid regurgitation. No evidence of endocarditis. Assessment/Plan: 38 yo man with newly diagnosed diabetes and history of alcoholic hepatitis presents with UTI in hyperosmolar hyperglycemic state. #Diabetes mellitus- newly diagnosed A1c 10.2. -Patient also presented with hyperglycemia. Sugars improved now. -Continue insulin sliding scale and glargine qhs per endocrinology recommendations -Follow-up insulin antibody levels and further endocrinology recommendations # Severe sepsis: Had been slowly resolving- Not requiring pressors- Probably due to UTI- Blood, urine cultures growing hernandes-sensitive E coli. 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 -Follow-up repeat blood culture results -Appreciate hematology oncology consult, follow-up results of flow cytometry- still pending #Hypokalemia- Requiring daily PO replacement- -Monitor, replete as needed -Again lactulose has been stopped for the last 4 days secondary to normal ammonia levels at that time #Abdominal distention: Likely secondary to ascites, improving now after paracentesis performed -Monitor for now, follow-up final fluid studies including culture # Acute encephalopathy: Resolved now -Monitor #Hyponatremia - Resolved, monitor # history of alcoholic hepatitis with likely early cirrhosis: Status post paracentesis 4 days ago -Monitor DVT GI prophylaxis: SCDs, H2 nicole Result Diagram: 09/03/18 0517 09/04/18 0429 Results 24hrs Laboratory Tests Test 09/03/18 17:03 09/03/18 20:38 09/04/18 04:29 09/04/18 07:37 Bedside Glucose 114 113 295 H Sodium Level 132 L Potassium Level 3.4 L Chloride Level 105 Carbon Dioxide Level 18 L Anion Gap 9 Blood Urea Nitrogen 11 Creatinine 1.03 Est Glomerular > 60 Filtrat Rate mL/min Glucose Level 104 Calcium Level 7.5 L Phosphorus Level 4.4 Magnesium Level 1.7 Ammonia 23 Test 09/04/18 12:09 Bedside Glucose 82 Exam/Review of Systems Exam Vitals Vital Signs Date Temp Pulse Resp B/P (MAP) Pulse Ox O2 O2 Flow FiO2 Time Delivery Rate 09/04/18 128 12:00 09/04/18 98.1 18 97/62 (74) 96 11:24 09/02/18 Room Air 15:33 Intake and Output 09/03/18 09/03/18 09/04/18 1515:00 23:00 07:00 IntakeIntake Total 1170 ml 578 ml 400 ml OutputOutput Total 600 ml BalanceBalance 1170 ml -22 ml 400 ml Results Results 24hrs Laboratory Tests Test 09/03/18 17:03 09/03/18 20:38 09/04/18 04:29 09/04/18 07:37 Bedside Glucose 114 113 295 H Sodium Level 132 L Potassium Level 3.4 L Chloride Level 105 Carbon Dioxide Level 18 L Anion Gap 9 Blood Urea Nitrogen 11 Creatinine 1.03 Est Glomerular > 60 Filtrat Rate mL/min Glucose Level 104 Calcium Level 7.5 L Phosphorus Level 4.4 Magnesium Level 1.7 Ammonia 23 Test 09/04/18 12:09 Bedside Glucose 82 Medications Medication Current Medications Ondansetron HCl (Zofran Inj) 4 mg Q6H PRN IV NAUSEA AND/OR VOMITING; Start 08/25/18 at 20:00 Albuterol (Proventil 0.083% (Neb)) 2.5 mg Q2H RESP THERAPY PRN NEB SHORTNESS OF BREATH; Start 08/25/18 at 20:00 Ipratropium [place] (Atrovent 0.02% (Neb)) 0.5 mg Q2H RESP THERAPY PRN NEB SHORTNESS OF BREATH; Start 08/25/18 at 20:00 Acetaminophen (Tylenol Liquid) 650 mg Q6H PRN PO PAIN LEVEL 1-3 OR FEVER Last administered on 08/30/18at 00:45; Admin Dose 650 MG; Start 08/25/18 at 20:00 Morphine Sulfate (morphine) 1 mg Q4H PRN IV PAIN LEVEL 7-10; Start 08/25/18 at 20:00 Potassium Chloride 50 ml @ 50 mls/hr K PROTOCOL PRN IVPB PENDING LAB VALUE Last administered on 08/26/18at 17:23; Admin Dose 50 MLS/HR; Start 08/26/18 at 04:30 Miscellaneous Information 1 ea NOTE XX ; Start 08/26/18 at 05:00 Glucose (Glutose) 15 gm Q15M PRN PO DECREASED GLUCOSE; Start 08/26/18 at 05:00 Glucose (Glutose) 22.5 gm Q15M PRN PO DECREASED GLUCOSE; Start 08/26/18 at 05:00 Dextrose (D50w Syringe) 25 ml Q15M PRN IV DECREASED GLUCOSE; Start 08/26/18 at 05:00 Dextrose (D50w Syringe) 50 ml Q15M PRN IV DECREASED GLUCOSE; Start 08/26/18 at 05:00 Glucagon (Glucagen) 1 mg Q15M PRN IM DECREASED GLUCOSE; Start 08/26/18 at 05:00 Glucose (Glutose) 15 gm Q15M PRN BUCCAL DECREASED GLUCOSE; Start 08/26/18 at 05 :00 Folic Acid (Folic Acid) 1 mg DAILY PO Last administered on 09/04/18at 08:08; Admin Dose 1 MG; Start 08/26/18 at 09:00 Multivitamins Therapeutic (Theragran) 1 tab DAILY PO Last administered on 08/15 05/04at 08:08; Admin Dose 1 TAB; Start 08/26/18 at 09:00 Thiamine HCl (Vitamin B1) 100 mg DAILY PO Last administered on 09/04/18 08:08; Admin Dose 100 MG; Start 08/26/18 at 09:00 Insulin Aspart (Novolog Insulin Pen) NOVOLOG *MODERATE* ALGORITHM WITH MEALS BEDTIME SC Last administered on 09/04/18 07:59; Admin Dose 8 UNIT; Start 08/26/18 at 11:30 Famotidine (Pepcid) 20 mg DAILY PO Last administered on 09/04/18 08:08; Admin Dose 20 MG; Start 08/27/18 at 09:00 Simethicone (Mylicon) 80 mg Q8 PRN PO DISTENSION/GAS/BLOATING Last administered on 08/27/18 21:52; Admin Dose 80 MG; Start 08/27/18 at 21:00 Potassium Chloride (Klor-Con 20) 60 meq DAILY PO Last administered on 09/04/18 08:09; Admin Dose 60 MEQ; Start 08/29/18 at 09:00 Levofloxacin/ Dextrose 100 ml @ 100 mls/hr Q24H IVPB Last administered on 09/04/18 02:07; Admin Dose 100 MLS/HR; Start 08/30/18 at 01:30 Linagliptin (Tradjenta) 5 mg DAILY PO Last administered on 09/04/18 08:08; Admin Dose 5 MG; Start 09/02/18 at 13:00 Metformin HCl (Glucophage) 500 mg BID WITH MEALS PO Last administered on 09/04/18 08:09; Admin Dose 500 MG; Start 09/03/18 at 18:00 Empaglifozin (Jardiance) 25 mg DAILY@08 PO Last administered on 09/04/18 10:41; Admin Dose 25 MG; Start 09/04/18 at 10:00 ALIS FINE Sep 04, 2018 14:16
[2018-09-05] VITALS (12 sets, daily range): BP systolic 98–112; BP diastolic 62–72; PULSE 102–124; RESP 18–20
[2018-09-05] MEDS: LEVOFLOXACIN 500MG/D5W (PMX) 100 ML IVPB SCH (01:19)
[2018-09-05] MEDS: INSULIN ASPART [NOVOLOG] 3 ML PEN SC SCH ×4 (07:34→20:49)
[2018-09-05] MEDS: FOLIC ACID 1 MG TAB PO SCH (08:02)
[2018-09-05] MEDS: POTASSIUM CHLORIDE (SR) 20 MEQ TAB PO SCH (08:02)
[2018-09-05] MEDS: metFORMIN 500 MG TAB PO SCH ×2 (08:02→17:19)
[2018-09-05] MEDS: FAMOTIDINE 20 MG TAB PO SCH (08:03)
[2018-09-05] MEDS: MULTIVITAMINS THERAPEUTIC TAB PO SCH (08:03)
[2018-09-05] MEDS: EMPAGLIFLOZIN 10 MG TABLET PO SCH (08:03)
[2018-09-05] MEDS: THIAMINE 100 MG TAB PO SCH (08:03)
[2018-09-05] MEDS: LINAGLIPTIN 5 MG TABLET PO SCH (08:03)
--- NOTE | 2018-09-05 09:02 | CONS ---
Assessment/Plan Assessment/Plan Problems: (1) Type 2 diabetes mellitus without complications Status: Chronic Comment: Good control on this oral regimen. Hyperglycemia yesterday am w/o insulin seems to have been a one-off. Cont. current oral regimen provided it continues to provide good glycemic control. 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 T2DM Requesting Provider: ALIS FINE Date/Time of Note DATE: 09/05/18 TIME: 09:00 24 HR Interval Summary Constitutional: no complaints, improved Detailed Summary Respiratory: no complaints Cardiovascular: no complaints Gastrointestinal: no complaints Genitourinary: no complaints Musculoskeletal: no complaints Neurologic: no complaints Exam/Review of Systems Exam Vitals VS - Last 72 Hours, by Label Date Temp Pulse Resp B/P (MAP) Pulse Ox O2 O2 Flow FiO2 Time Delivery Rate 09/05/18 97.8 112 20 105/69 98 Room Air 07:29 (81) 09/05/18 111 04:00 09/05/18 98.7 111 18 101/69 98 03:27 (80) 09/05/18 115 00:00 09/04/18 98.6 115 18 107/72 99 23:52 (84) 09/04/18 117 20:00 09/04/18 98.6 120 18 108/73 97 19:40 (85) 09/04/18 113 16:00 09/04/18 98.0 77 18 105/70 96 15:15 (82) 09/04/18 128 12:00 09/04/18 98.1 69 18 97/62 (74) 96 11:24 09/04/18 109 08:00 09/04/18 98.3 79 19 99/69 (79) 97 07:36 09/04/18 106 04:00 09/04/18 98.5 99 18 108/73 98 04:00 (85) 09/04/18 121 00:00 09/04/18 98.3 115 18 111/73 98 00:00 (86) 09/03/18 98.4 118 19 102/72 97 20:00 (82) 09/03/18 119 20:00 09/03/18 115 16:31 09/03/18 98.1 110 19 116/78 96 15:59 (91) 09/03/18 114 12:19 09/03/18 98.6 110 18 107/75 96 11:38 (86) 09/03/18 114 09:13 09/03/18 98.1 70 18 105/70 96 07:28 (82) 09/03/18 98.6 122 107/ 99 04:23 09/03/18 126 04:00 09/03/18 99.0 112 18 122/63 98 00:06 (82) 09/03/18 127 00:00 09/02/18 114 20:00 09/02/18 99.4 116 18 108/75 99 19:30 (86) 09/02/18 110 16:34 09/02/18 98.7 110 20 110/72 99 Room Air 15:33 (85) 09/02/18 106 12:14 09/02/18 98.5 108 20 105/74 98 Room Air 11:34 (84) Vital Signs Date Temp Pulse Resp B/P (MAP) Pulse Ox O2 O2 Flow FiO2 Time Delivery Rate 09/05/18 97.8 112 20 105/69 98 Room Air 07:29 (81) Intake and Output 09/04/18 09/04/18 09/05/18 1515:00 23:00 07:00 IntakeIntake Total 940 ml 540 ml 250 ml BalanceBalance 940 ml 540 ml 250 ml Constitutional: alert, oriented, well developed Psych: no complaints, nl mood/affect Eyes: icteric Respiratory: clear to auscultation, normal air movement Cardiovascular: regular rate and rhythm, nl pulses Gastrointestinal: soft, nl liver, spleen, non-tender, ascites, bowel sounds, distended Musculoskeletal: nl extremities to inspection Extremities: normal pulses; No cyanosis, No clubbing, No edema 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, nl mental status, nl speech, nl strength Additional Comments Bedside Glucose - 72 Hours Test 09/02/18 11:53 09/02/18 17:32 09/02/18 20:19 09/03/18 07:45 Bedside 142 127 145 124 Glucose mg/dL (70-220) mg/dL (70-220) mg/dL (70-220) mg/dL (70-220) Test 09/03/18 12:02 09/03/18 17:03 09/03/18 20:38 09/04/18 07:37 Bedside 84 114 113 295 Glucose mg/dL (70-220) mg/dL (70-220) mg/dL (70-220) mg/dL (70-220) H Test 09/04/18 12:09 09/04/18 17:10 09/04/18 21:06 09/05/18 07:33 Bedside 82 107 103 92 Glucose mg/dL (70-220) mg/dL (70-220) mg/dL (70-220) mg/dL (70-220) Results Result Diagram: 09/05/189 09/05/18 0429 Results 24hrs Laboratory Tests Test 09/04/18 12:09 09/04/18 15:35 09/04/18 17:10 09/04/18 21:06 Bedside Glucose 82 107 103 White Blood Count 18.8 H Red Blood Count 3.16 L Hemoglobin 9.7 L Hematocrit 28.8 L Mean Corpuscular 91.1 Volume Mean Corpuscular 30.7 Hemoglobin Mean Corpuscular 33.7 Hemoglobin Concent Red Cell 15.7 H Distribution Width Platelet Count 183 Mean Platelet Volume 9.1 Immature 2.100 H Granulocytes % Neutrophils % 73.6 Lymphocytes % 13.4 L Monocytes % 9.4 Eosinophils % 1.0 Basophils % 0.5 Nucleated Red Blood 0.0 Cells % Immature 0.400 H Granulocytes # Neutrophils # 13.8 H Lymphocytes # 2.5 Monocytes # 1.8 H Eosinophils # 0.2 Basophils # 0.1 Nucleated Red Blood 0.0 Cells # Sodium Level 131 L Potassium Level 4.0 Chloride Level 105 Carbon Dioxide Level 18 L Anion Gap 8 Blood Urea Nitrogen 12 Creatinine 1.07 Est Glomerular > 60 Filtrat Rate mL/min Glucose Level 89 Calcium Level 7.7 L Test 09/05/18 04:29 09/05/18 07:33 White Blood Count 16.6 H Red Blood Count 3.03 L Hemoglobin 9.1 L Hematocrit 27.6 L Mean Corpuscular 91.1 Volume Mean Corpuscular 30.0 Hemoglobin Mean Corpuscular 33.0 Hemoglobin Concent Red Cell 15.9 H Distribution Width Platelet Count 178 Mean Platelet Volume 9.6 Immature 1.700 H Granulocytes % Neutrophils % 73.8 Lymphocytes % 15.1 Monocytes % 8.2 Eosinophils % 1.0 Basophils % 0.2 Nucleated Red Blood 0.0 Cells % Immature 0.280 H Granulocytes # Neutrophils # 12.2 H Lymphocytes # 2.5 Monocytes # 1.4 H Eosinophils # 0.2 Basophils # 0.0 Nucleated Red Blood 0.0 Cells # Sodium Level 131 L Potassium Level 3.1 L Chloride Level 106 Carbon Dioxide Level 17 L Anion Gap 8 Blood Urea Nitrogen 12 Creatinine 1.06 Est Glomerular > 60 Filtrat Rate mL/min Glucose Level 129 # Calcium Level 7.6 L Phosphorus Level 4.8 Magnesium Level 1.7 Bedside Glucose 92 Medications Medication Current Medications Ondansetron HCl (Zofran Inj) 4 mg Q6H PRN IV NAUSEA AND/OR VOMITING; Start 08/25/18 at 20:00 Albuterol (Proventil 0.083% (Neb)) 2.5 mg Q2H RESP THERAPY PRN NEB SHORTNESS OF BREATH; Start 08/25/18 at 20:00 Ipratropium [place] (Atrovent 0.02% (Neb)) 0.5 mg Q2H RESP THERAPY PRN NEB SHORTNESS OF BREATH; Start 08/25/18 at 20:00 Acetaminophen (Tylenol Liquid) 650 mg Q6H PRN PO PAIN LEVEL 1-3 OR FEVER Last administered on 08/30/18at 00:45; Admin Dose 650 MG; Start 08/25/18 at 20:00 Morphine Sulfate (morphine) 1 mg Q4H PRN IV PAIN LEVEL 7-10; Start 08/25/18 at 20:00 Potassium Chloride 50 ml @ 50 mls/hr K PROTOCOL PRN IVPB PENDING LAB VALUE Last administered on 08/26/18at 17:23; Admin Dose 50 MLS/HR; Start 08/26/18 at 04:30 Miscellaneous Information 1 ea NOTE XX ; Start 08/26/18 at 05:00 Glucose (Glutose) 15 gm Q15M PRN PO DECREASED GLUCOSE; Start 08/26/18 at 05:00 Glucose (Glutose) 22.5 gm Q15M PRN PO DECREASED GLUCOSE; Start 08/26/18 at 05:00 Dextrose (D50w Syringe) 25 ml Q15M PRN IV DECREASED GLUCOSE; Start 08/26/18 at 05:00 Dextrose (D50w Syringe) 50 ml Q15M PRN IV DECREASED GLUCOSE; Start 08/26/18 at 05:00 Glucagon (Glucagen) 1 mg Q15M PRN IM DECREASED GLUCOSE; Start 08/26/18 at 05:00 Glucose (Glutose) 15 gm Q15M PRN BUCCAL DECREASED GLUCOSE; Start 08/26/18 at 05:00 Folic Acid (Folic Acid) 1 mg DAILY PO Last administered on 09/05/18 08:02; Admin Dose 1 MG; Start 08/26/18 at 09:00 Multivitamins Therapeutic (Theragran) 1 tab DAILY PO Last administered on 09/05 08:03; Admin Dose 1 TAB; Start 08/26/18 at 09:00 Thiamine HCl (Vitamin B1) 100 mg DAILY PO Last administered on 09/05/18 08:03; Admin Dose 100 MG; Start 08/26/18 at 09:00 Insulin Aspart (Novolog Insulin Pen) NOVOLOG *MODERATE* ALGORITHM WITH MEALS BEDTIME SC Last administered on 09/04/18 07:59; Admin Dose 8 UNIT; Start 08/26/18 at 11:30 Famotidine (Pepcid) 20 mg DAILY PO Last administered on 09/05/18 08:03; Admin Dose 20 MG; Start 08/27/18 at 09:00 Simethicone (Mylicon) 80 mg Q8 PRN PO DISTENSION/GAS/BLOATING Last administered on 08/27/18 21:52; Admin Dose 80 MG; Start 08/27/18 at 21:00 Potassium Chloride (Klor-Con 20) 60 meq DAILY PO Last administered on 09/05/18 08:02; Admin Dose 60 MEQ; Start 08/29/18 at 09:00 Levofloxacin/ Dextrose 100 ml @ 100 mls/hr Q24H IVPB Last administered on 09/05/18 01:19; Admin Dose 100 MLS/HR; Start 08/30/18 at 01:30 Linagliptin (Tradjenta) 5 mg DAILY PO Last administered on 09/05/18 08:03; Admin Dose 5 MG; Start 09/02/18 at 13:00 Metformin HCl (Glucophage) 500 mg BID WITH MEALS PO Last administered on 09/05/18 08:02; Admin Dose 500 MG; Start 09/03/18 at 18:00 Empaglifozin (Jardiance) 25 mg DAILY@08 PO Last administered on 09/05/18at 08:03; Admin Dose 25 MG; Start 09/04/18 at 10:00 DELIO CESPEDES MD Sep 05, 2018 09:02
--- NOTE | 2018-09-05 09:37 | CONS ---
Consult Date/Type/Reason Admit Date/Time Aug 25, 2018 at 19:52 Initial Consult Date 09/01/18 Requesting Provider: ALIS FINE Date/Time of Note DATE: 09/05/18 TIME: 09:36 Subjective continues good uo. No events overnight. . HEENT: Head is normocephalic. NECK: Supple. HEART: Regular rate. LUNGS: Show diminished breath sounds at the base. ABDOMEN: Soft, nontender to palpation without rebound or guarding. EXTREMITIES: Negative for clubbing, cyanosis, no edema. DERMATOLOGIC: No rashes. MUSCULOSKELETAL: No joint effusion. NEUROLOGIC: No change in exam. Objective Vitals Vital Signs Date Temp Pulse Resp B/P (MAP) Pulse Ox O2 O2 Flow FiO2 Time Delivery Rate 09/05/18 108 09:04 09/05/18 97.8 20 105/69 98 Room Air 07:29 (81) Intake and Output 09/04/18 09/04/18 09/05/18 1515:00 23:00 07:00 IntakeIntake Total 940 ml 540 ml 250 ml BalanceBalance 940 ml 540 ml 250 ml Results/Medications Result Diagram: 09/05/18 0429 09/05/18 0429 Results 24 hrs Laboratory Tests Test 09/04/18 12:09 09/04/18 15:35 09/04/18 17:10 09/04/18 21:06 Bedside Glucose 82 107 103 White Blood Count 18.8 H Red Blood Count 3.16 L Hemoglobin 9.7 L Hematocrit 28.8 L Mean Corpuscular 91.1 Volume Mean Corpuscular 30.7 Hemoglobin Mean Corpuscular 33.7 Hemoglobin Concent Red Cell 15.7 H Distribution Width Platelet Count 183 Mean Platelet Volume 9.1 Immature 2.100 H Granulocytes % Neutrophils % 73.6 Lymphocytes % 13.4 L Monocytes % 9.4 Eosinophils % 1.0 Basophils % 0.5 Nucleated Red Blood 0.0 Cells % Immature 0.400 H Granulocytes # Neutrophils # 13.8 H Lymphocytes # 2.5 Monocytes # 1.8 H Eosinophils # 0.2 Basophils # 0.1 Nucleated Red Blood 0.0 Cells # Sodium Level 131 L Potassium Level 4.0 Chloride Level 105 Carbon Dioxide Level 18 L Anion Gap 8 Blood Urea Nitrogen 12 Creatinine 1.07 Est Glomerular > 60 Filtrat Rate mL/min Glucose Level 89 Calcium Level 7.7 L Test 09/05/18 04:29 09/05/18 07:33 White Blood Count 16.6 H Red Blood Count 3.03 L Hemoglobin 9.1 L Hematocrit 27.6 L Mean Corpuscular 91.1 Volume Mean Corpuscular 30.0 Hemoglobin Mean Corpuscular 33.0 Hemoglobin Concent Red Cell 15.9 H Distribution Width Platelet Count 178 Mean Platelet Volume 9.6 Immature 1.700 H Granulocytes % Neutrophils % 73.8 Lymphocytes % 15.1 Monocytes % 8.2 Eosinophils % 1.0 Basophils % 0.2 Nucleated Red Blood 0.0 Cells % Immature 0.280 H Granulocytes # Neutrophils # 12.2 H Lymphocytes # 2.5 Monocytes # 1.4 H Eosinophils # 0.2 Basophils # 0.0 Nucleated Red Blood 0.0 Cells # Sodium Level 131 L Potassium Level 3.1 L Chloride Level 106 Carbon Dioxide Level 17 L Anion Gap 8 Blood Urea Nitrogen 12 Creatinine 1.06 Est Glomerular > 60 Filtrat Rate mL/min Glucose Level 129 # Calcium Level 7.6 L Phosphorus Level 4.8 Magnesium Level 1.7 Bedside Glucose 92 Home Meds Reported Medications Ferrous Sulfate* (Ferrous Sulfate*) 325 Mg Tabec, 325 MG PO DAILY, TAB 08/25/18 Lorazepam* (Lorazepam*) 1 Mg Tablet, 1 MG PO Q12H PRN for ANXIETY for 15 Days, #30 08/25/18 Cholecalciferol* (Vitamin D*) 400 Unit Tablet, 800 UNIT PO DAILY, TAB 06/24/17 Medications Current Medications Ondansetron HCl (Zofran Inj) 4 mg Q6H PRN IV NAUSEA AND/OR VOMITING; Start 08/25/18 at 20:00 Albuterol (Proventil 0.083% (Neb)) 2.5 mg Q2H RESP THERAPY PRN NEB SHORTNESS OF BREATH; Start 08/25/18 at 20:00 Ipratropium [place] (Atrovent 0.02% (Neb)) 0.5 mg Q2H RESP THERAPY PRN NEB SHORTNESS OF BREATH; Start 08/25/18 at 20:00 Acetaminophen (Tylenol Liquid) 650 mg Q6H PRN PO PAIN LEVEL 1-3 OR FEVER Last administered on 08/30/18at 00:45; Admin Dose 650 MG; Start 08/25/18 at 20:00 Morphine Sulfate (morphine) 1 mg Q4H PRN IV PAIN LEVEL 7-10; Start 08/25/18 at 20:00 Potassium Chloride 50 ml @ 50 mls/hr K PROTOCOL PRN IVPB PENDING LAB VALUE Last administered on 08/26/18at 17:23; Admin Dose 50 MLS/HR; Start 08/26/18 at 04:30 Miscellaneous Information 1 ea NOTE XX ; Start 08/26/18 at 05:00 Glucose (Glutose) 15 gm Q15M PRN PO DECREASED GLUCOSE; Start 08/26/18 at 05:00 Glucose (Glutose) 22.5 gm Q15M PRN PO DECREASED GLUCOSE; Start 08/26/18 at 05:00 Dextrose (D50w Syringe) 25 ml Q15M PRN IV DECREASED GLUCOSE; Start 08/26/18 at 05:00 Dextrose (D50w Syringe) 50 ml Q15M PRN IV DECREASED GLUCOSE; Start 08/26/18 at 05:00 Glucagon (Glucagen) 1 mg Q15M PRN IM DECREASED GLUCOSE; Start 08/26/18 at 05:00 Glucose (Glutose) 15 gm Q15M PRN BUCCAL DECREASED GLUCOSE; Start 08/26/18 at 05:00 Folic Acid (Folic Acid) 1 mg DAILY PO Last administered on 09/05/18at 08:02; Admin Dose 1 MG; Start 08/26/18 at 09:00 Multivitamins Therapeutic (Theragran) 1 tab DAILY PO Last administered on 09/05/18 08:03; Admin Dose 1 TAB; Start 08/26/18 at 09:00 Thiamine HCl (Vitamin B1) 100 mg DAILY PO Last administered on 09/05/18 08:03; Admin Dose 100 MG; Start 08/26/18 at 09:00 Insulin Aspart (Novolog Insulin Pen) NOVOLOG *MODERATE* ALGORITHM WITH MEALS BEDTIME SC Last administered on 09/04/18at 07:59; Admin Dose 8 UNIT; Start 08/26/18 at 11:30 Famotidine (Pepcid) 20 mg DAILY PO Last administered on 09/05/18 08:03; Admin Dose 20 MG; Start 08/27/18 at 09:00 Simethicone (Mylicon) 80 mg Q8 PRN PO DISTENSION/GAS/BLOATING Last administered on 08/27/18at 21:52; Admin Dose 80 MG; Start 08/27/18 at 21:00 Potassium Chloride (Klor-Con 20) 60 meq DAILY PO Last administered on 09/05/18 08:02; Admin Dose 60 MEQ; Start 08/29/18 at 09:00 Levofloxacin/ Dextrose 100 ml @ 100 mls/hr Q24H IVPB Last administered on 09/05/18at 01:19; Admin Dose 100 MLS/HR; Start 08/30/18 at 01:30 Linagliptin (Tradjenta) 5 mg DAILY PO Last administered on 09/05/18 08:03; Admin Dose 5 MG; Start 09/02/18 at 13:00 Metformin HCl (Glucophage) 500 mg BID WITH MEALS PO Last administered on 09/05/18 08:02; Admin Dose 500 MG; Start 09/03/18 at 18:00 Empaglifozin (Jardiance) 25 mg DAILY@08 PO Last administered on 09/05/18 08:03; Admin Dose 25 MG; Start 09/04/18 at 10:00 Assessment/Plan Hospital Course (Demo Recall) 1. Nonoliguric acute kidney injury. Etiology is secondary to hemodynamics. Renal function is improved. Continue to monitor. 2. Hypomagnesemia. Etiology is likely due to renal magnesium wasting due to chronic ETOH abuse. Continue to monitor and replete. 3. Hypokalemia. Etiology is in part due to hypomagnesemia and total body d eficit. Continue to correct underlying hypomagnesemia. Continue to replete and correct underlying hypokalemia. 4. Hyponatremia. Continue to monitor. Limit free water intake. 5. Anemia. Monitor hemoglobin and hematocrit levels. 6. Mineral bone disorder. Monitor calcium and phosphorus levels. 7. Severe sepsis secondary to urinary tract infection. The patient is completing antibiotic course. 8. History of ETOH abuse. Monitor for withdrawals. Possible ETOH hepatitis. Continue to monitor. 9. Diabetes. Continue current insulin regimen. FLO ZAVALA MD Sep 05, 2018 09:37
[2018-09-05] MEDS ORDERED: POTASSIUM CHLORIDE (SR) 20 MEQ TAB PO STA (10:18)
--- NOTE | 2018-09-05 10:26 | PN ---
Date/Time of Note Date/Time of Note DATE: 09/05/18 TIME: 10:24 Assessment/Plan VTE Prophylaxis Risk score (from Nsg)>0 risk: 0 SCD applied (from Nsg): Yes Pharmacological prophylaxis: other Lines/Catheters IV Catheter Type (from Nrsg): Saline Lock Urinary Cath still in place: No Assessment/Plan Hospital Course S: Patient had no acute events overnight. O: VS- see below PE: General: Lying in bed, no acute distress HEENT: Atraumatic, normocephalic. The pupils are equal, round and reactive. Extraocular motor are intact Neck: Supple with full range of motion. No rigidity or meningismus Chest: Nontender Lungs: Clear to auscultation bilaterally no crackles rales or wheezing Heart: Normal S1-S2, Regular rhythm and rate. No murmur, S3, or S4 Abdomen: Soft , slightly more distended abdomen/ascites, bowel sounds are present. No guarding no rebound tenderness Extremities: No lower exam edema bilaterally 2D echo: Conclusions: Normal left ventricular systolic function. Normal left ventricular cavity size. Left ventricular wall thickness upper limits of normal. Ejection fraction is visually estimated at 55 %. Tissue Doppler/Mitral Doppler indices are consistent with impaired relaxation (Stage I diastolic dysfunction). Mild mitral leaflet calcification. Mild mitral annular calcification. Trace mitral regurgitation. No evidence of endocarditis. No significant aortic stenosis or insufficiency. Aortic cusps appear mildly calcified. Normal appearance of the tricuspid valve. The estimated Peak RVSP is 26 mmHg. There is trace tricuspid regurgitation. No evidence of endocarditis. Assessment/Plan: 38 yo man with newly diagnosed diabetes and history of alcoholic hepatitis presents with UTI in hyperosmolar hyperglycemic state. #Diabetes mellitus- newly diagnosed A1c 10.2. -Patient also presented with hyperglycemia. Sugars improved now. -Continue insulin sliding scale, Jardace and metformin ordered by endocrinology team, glargine qhs per endocrinology recommendations -Follow-up insulin antibody levels and further endocrinology recommendations # Severe sepsis: Had been slowly resolving- Not requiring pressors- Probably due to UTI- Blood, urine cultures growing hernandes-sensitive E coli. 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 -Follow-up repeat blood culture results -Appreciate hematology oncology consult, follow-up results of flow cytometry- apparently results of this still pending #Hypokalemia- Requiring daily PO replacement -Monitor, replete as needed including today, will also replete low magnesium levels as they are related -Again lactulose has been stopped for the last 5 days secondary to normal ammonia levels at that time #Abdominal distention: Likely secondary to ascites, improving now after paracentesis performed -Monitor for now, follow-up final fluid studies including culture # Acute encephalopathy: Resolved now -Monitor #Hyponatremia - Resolved, monitor # history of alcoholic hepatitis with likely early cirrhosis: Status post paracentesis 5 days ago -Monitor DVT GI prophylaxis: SCDs, H2 nicole Result Diagram: 09/05/18 04209/05/18 0429 Results 24hrs Laboratory Tests Test 09/04/18 12:09 09/04/18 15:35 09/04/18 17:10 09/04/18 21:06 Bedside Glucose 82 107 103 White Blood Count 18.8 H Red Blood Count 3.16 L Hemoglobin 9.7 L Hematocrit 28.8 L Mean Corpuscular 91.1 Volume Mean Corpuscular 30.7 Hemoglobin Mean Corpuscular 33.7 Hemoglobin Concent Red Cell 15.7 H Distribution Width Platelet Count 183 Mean Platelet Volume 9.1 Immature 2.100 H Granulocytes % Neutrophils % 73.6 Lymphocytes % 13.4 L Monocytes % 9.4 Eosinophils % 1.0 Basophils % 0.5 Nucleated Red Blood 0.0 Cells % Immature 0.400 H Granulocytes # Neutrophils # 13.8 H Lymphocytes # 2.5 Monocytes # 1.8 H Eosinophils # 0.2 Basophils # 0.1 Nucleated Red Blood 0.0 Cells # Sodium Level 131 L Potassium Level 4.0 Chloride Level 105 Carbon Dioxide Level 18 L Anion Gap 8 Blood Urea Nitrogen 12 Creatinine 1.07 Est Glomerular > 60 Filtrat Rate mL/min Glucose Level 89 Calcium Level 7.7 L Test 09/05/18 04:29 09/05/18 07:33 White Blood Count 16.6 H Red Blood Count 3.03 L Hemoglobin 9.1 L Hematocrit 27.6 L Mean Corpuscular 91.1 Volume Mean Corpuscular 30.0 Hemoglobin Mean Corpuscular 33.0 Hemoglobin Concent Red Cell 15.9 H Distribution Width Platelet Count 178 Mean Platelet Volume 9.6 Immature 1.700 H Granulocytes % Neutrophils % 73.8 Lymphocytes % 15.1 Monocytes % 8.2 Eosinophils % 1.0 Basophils % 0.2 Nucleated Red Blood 0.0 Cells % Immature 0.280 H Granulocytes # Neutrophils # 12.2 H Lymphocytes # 2.5 Monocytes # 1.4 H Eosinophils # 0.2 Basophils # 0.0 Nucleated Red Blood 0.0 Cells # Sodium Level 131 L Potassium Level 3.1 L Chloride Level 106 Carbon Dioxide Level 17 L Anion Gap 8 Blood Urea Nitrogen 12 Creatinine 1.06 Est Glomerular > 60 Filtrat Rate mL/min Glucose Level 129 # Calcium Level 7.6 L Phosphorus Level 4.8 Magnesium Level 1.7 Bedside Glucose 92 Exam/Review of Systems Exam Vitals Vital Signs Date Temp Pulse Resp B/P (MAP) Pulse Ox O2 O2 Flow FiO2 Time Delivery Rate 09/05/18 108 09:04 09/05/18 97.8 20 105/69 98 Room Air 07:29 (81) Intake and Output 09/04/18 09/04/18 09/05/18 1515:00 23:00 07:00 IntakeIntake Total 940 ml 540 ml 250 ml BalanceBalance 940 ml 540 ml 250 ml Results Results 24hrs Laboratory Tests Test 09/04/18 12:09 09/04/18 15:35 09/04/18 17:10 09/04/18 21:06 Bedside Glucose 82 107 103 White Blood Count 18.8 H Red Blood Count 3.16 L Hemoglobin 9.7 L Hematocrit 28.8 L Mean Corpuscular 91.1 Volume Mean Corpuscular 30.7 Hemoglobin Mean Corpuscular 33.7 Hemoglobin Concent Red Cell 15.7 H Distribution Width Platelet Count 183 Mean Platelet Volume 9.1 Immature 2.100 H Granulocytes % Neutrophils % 73.6 Lymphocytes % 13.4 L Monocytes % 9.4 Eosinophils % 1.0 Basophils % 0.5 Nucleated Red Blood 0.0 Cells % Immature 0.400 H Granulocytes # Neutrophils # 13.8 H Lymphocytes # 2.5 Monocytes # 1.8 H Eosinophils # 0.2 Basophils # 0.1 Nucleated Red Blood 0.0 Cells # Sodium Level 131 L Potassium Level 4.0 Chloride Level 105 Carbon Dioxide Level 18 L Anion Gap 8 Blood Urea Nitrogen 12 Creatinine 1.07 Est Glomerular > 60 Filtrat Rate mL/min Glucose Level 89 Calcium Level 7.7 L Test 09/05/18 04:29 09/05/18 07:33 White Blood Count 16.6 H Red Blood Count 3.03 L Hemoglobin 9.1 L Hematocrit 27.6 L Mean Corpuscular 91.1 Volume Mean Corpuscular 30.0 Hemoglobin Mean Corpuscular 33.0 Hemoglobin Concent Red Cell 15.9 H Distribution Width Platelet Count 178 Mean Platelet Volume 9.6 Immature 1.700 H Granulocytes % Neutrophils % 73.8 Lymphocytes % 15.1 Monocytes % 8.2 Eosinophils % 1.0 Basophils % 0.2 Nucleated Red Blood 0.0 Cells % Immature 0.280 H Granulocytes # Neutrophils # 12.2 H Lymphocytes # 2.5 Monocytes # 1.4 H Eosinophils # 0.2 Basophils # 0.0 Nucleated Red Blood 0.0 Cells # Sodium Level 131 L Potassium Level 3.1 L Chloride Level 106 Carbon Dioxide Level 17 L Anion Gap 8 Blood Urea Nitrogen 12 Creatinine 1.06 Est Glomerular > 60 Filtrat Rate mL/min Glucose Level 129 # Calcium Level 7.6 L Phosphorus Level 4.8 Magnesium Level 1.7 Bedside Glucose 92 Medications Medication Current Medications Ondansetron HCl (Zofran Inj) 4 mg Q6H PRN IV NAUSEA AND/OR VOMITING; Start 08/25/18 at 20:00 Albuterol (Proventil 0.083% (Neb)) 2.5 mg Q2H RESP THERAPY PRN NEB SHORTNESS OF BREATH; Start 08/25/18 at 20:00 Ipratropium [place] (Atrovent 0.02% (Neb)) 0.5 mg Q2H RESP THERAPY PRN NEB SHORTNESS OF BREATH; Start 08/25/18 at 20:00 Acetaminophen (Tylenol Liquid) 650 mg Q6H PRN PO PAIN LEVEL 1-3 OR FEVER Last administered on 08/30/18at 00:45; Admin Dose 650 MG; Start 08/25/18 at 20:00 Morphine Sulfate (morphine) 1 mg Q4H PRN IV PAIN LEVEL 7-10; Start 08/25/18 at 20:00 Potassium Chloride 50 ml @ 50 mls/hr K PROTOCOL PRN IVPB PENDING LAB VALUE Last administered on 08/26/18at 17:23; Admin Dose 50 MLS/HR; Start 08/26/18 at 04:30 Miscellaneous Information 1 ea NOTE XX ; Start 08/26/18 at 05:00 Glucose (Glutose) 15 gm Q15M PRN PO DECREASED GLUCOSE; Start 08/26/18 at 05:00 Glucose (Glutose) 22.5 gm Q15M PRN PO DECREASED GLUCOSE; Start 08/26/18 at 05:00 Dextrose (D50w Syringe) 25 ml Q15M PRN IV DECREASED GLUCOSE; Start 08/26/18 at 05:00 Dextrose (D50w Syringe) 50 ml Q15M PRN IV DECREASED GLUCOSE; Start 08/26/18 at 05:00 Glucagon (Glucagen) 1 mg Q15M PRN IM DECREASED GLUCOSE; Start 08/26/18 at 05:00 Glucose (Glutose) 15 gm Q15M PRN BUCCAL DECREASED GLUCOSE; Start 08/26/18 at 05:00 Folic Acid (Folic Acid) 1 mg DAILY PO Last administered on 09/05/18 08:02; Admin Dose 1 MG; Start 08/26/18 at 09:00 Multivitamins Therapeutic (Theragran) 1 tab DAILY PO Last administered on 09/05/18 08:03; Admin Dose 1 TAB; Start 08/26/18 at 09:00 Thiamine HCl (Vitamin B1) 100 mg DAILY PO Last administered on 09/05/18 08:03; Admin Dose 100 MG; Start 08/26/18 at 09:00 Insulin Aspart (Novolog Insulin Pen) NOVOLOG *MODERATE* ALGORITHM WITH MEALS BEDTIME SC Last administered on 09/04/18at 07:59; Admin Dose 8 UNIT; Start 08/26/18 at 11:30 Famotidine (Pepcid) 20 mg DAILY PO Last administered on 09/05/18 08:03; Admin Dose 20 MG; Start 08/27/18 at 09:00 Simethicone (Mylicon) 80 mg Q8 PRN PO DISTENSION/GAS/BLOATING Last administered on 08/27/18at 21:52; Admin Dose 80 MG; Start 08/27/18 at 21:00 Potassium Chloride (Klor-Con 20) 60 meq DAILY PO Last administered on 09/05/18 08:02; Admin Dose 60 MEQ; Start 08/29/18 at 09:00 Levofloxacin/ Dextrose 100 ml @ 100 mls/hr Q24H IVPB Last administered on 09/05/18 01:19; Admin Dose 100 MLS/HR; Start 08/30/18 at 01:30 Linagliptin (Tradjenta) 5 mg DAILY PO Last administered on 6/23/19at 08:03; Admin Dose 5 MG; Start 09/02/18 at 13:00 Metformin HCl (Glucophage) 500 mg BID WITH MEALS PO Last administered on 09/05/18 08:02; Admin Dose 500 MG; Start 09/03/18 at 18:00 Empaglifozin (Jardiance) 25 mg DAILY@08 PO Last administered on 09/05/18at 08:03; Admin Dose 25 MG; Start 09/04/18 at 10:00 Potassium Chloride (Klor-Con 20) 40 meq ONCE STAT PO ; Start 09/05/18 at 10:18; Stop 09/05/18 at 10:19; Status UNV Magnesium Sulfate/ Dextrose 100 ml @ 100 mls/hr ONCE ONCE IVPB ; Start 09/05/18 at 10:30; Stop 09/05/18 at 11:29; Status UNV ALIS FINE Sep 05, 2018 10:26
[2018-09-05] MEDS ORDERED: MAGNESIUM SULFATE 1 GM/D5W 100 ML IVPB ONE (10:30)
--- NOTE | 2018-09-05 15:42 | CONS ---
Assessment/Plan Assessment/Plan Hospital Course (Demo Recall) assessment/impression - severe sepsis (leukocytosis, tachycardia, RR>20 and lactic acid>4) due to bacteremia, UTI and peritonitis - improved - recurrent UTI and bacteremia with the same species of bacteria: concerning for deep seated infection/source, possibly prostate. Transthoracic echo on 08/30/2018 showed no e/o valvular vegetation - diarrhea, was on lactulose - ascites - s/p paracentesis on 08/31/2018: WBC 2601, PMNs 54.1%, protein <2, LDH 416, culture negative peritonitis - hepatic encephalopathy on presentation. His head CT on 08/26/2018 showing no acute abnormalities - the presence of immature granulocytes, a reactive process - unintentional 15 lb weight loss: could reflect on-going (occult/deep seated) infection but also his alcoholic hepatitis - recurrent TORIBIO - newly diagnosed with DM: Hgb A1c on 08/26/2018 was 10.2 while that on 07/01/2018 was 6.3 - nonspecific gallbladder wall thickening identified on abd CT and abd MRI in 06/2018 - alcoholic hepatitis, hepatitis ABC screen was negative in 06/2018 - smokes marijuana recommendations: - pending results: flow cytometry - continue levofloxacin (08/30/2018-) for a concern of 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 We recommend using an antibiotic that penetrates the prostate. Pt previously took pip/tazo (08/24/2018-08/29/2018). For prostatitis, we recommend total 6 weeks of antibiotic (including the dates of pip/tazo), from 08/24/2018 trough 10/05/2018 Management d/w patient, RICHIE Sneed, and with Dr. Rodriguez Consultation Date/Type/Reason Admit Date/Time Aug 25, 2018 at 19:52 Initial Consult Date 09/01/18 Type of Consult Infectious Disease Requesting Provider: ALIS FINE Date/Time of Note DATE: 09/05/18 TIME: 15:40 24 HR Interval Summary Free Text/Dictation Pt denies pain, SOB, n/v/d, dysuria. Still awaiting flow cytometry which should be available tomorrow per d/w pt. Magnesium and potassium were replaced per d/w nursing. Exam/Review of Systems Exam Vitals Vital Signs Date Temp Pulse Resp B/P (MAP) Pulse Ox O2 O2 Flow FiO2 Time Delivery Rate 09/05/18 98.6 108 20 100/72 98 Room Air 15:02 (81) Intake and Output 09/04/18 09/04/18 09/05/18 1515:00 23:00 07:00 IntakeIntake Total 940 ml 540 ml 250 ml BalanceBalance 940 ml 540 ml 250 ml Constitutional: alert, oriented, well developed Psych: no complaints, nl mood/affect Head: normocephalic, atraumatic Eyes: nl conjunctiva, nl lids ENMT: nl external ears & nose, nl lips & teeth, nl nasal mucosa & septum Neck: supple, non-tender Respiratory: clear to auscultation, normal air movement Cardiovascular: nl pulses, other (regular rhythm, mildly tachycardic with HR ~110's) Gastrointestinal: soft, non-tender, distended (mildly) Musculoskeletal: nl extremities to inspection Extremities: normal pulses 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: nl mental status, nl speech, nl strength Skin: nl turgor; No rash or lesions Results Result Diagram: 09/05/18 0429 09/05/18 0429 Results 24hrs Laboratory Tests Test 09/04/18 17:10 09/04/18 21:06 09/05/18 04:29 09/05/18 07:33 Bedside Glucose 107 103 92 White Blood Count 16.6 H Red Blood Count 3.03 L Hemoglobin 9.1 L Hematocrit 27.6 L Mean Corpuscular 91.1 Volume Mean Corpuscular 30.0 Hemoglobin Mean Corpuscular 33.0 Hemoglobin Concent Red Cell 15.9 H Distribution Width Platelet Count 178 Mean Platelet Volume 9.6 Immature 1.700 H Granulocytes % Neutrophils % 73.8 Lymphocytes % 15.1 Monocytes % 8.2 Eosinophils % 1.0 Basophils % 0.2 Nucleated Red Blood 0.0 Cells % Immature 0.280 H Granulocytes # Neutrophils # 12.2 H Lymphocytes # 2.5 Monocytes # 1.4 H Eosinophils # 0.2 Basophils # 0.0 Nucleated Red Blood 0.0 Cells # Sodium Level 131 L Potassium Level 3.1 L Chloride Level 106 Carbon Dioxide Level 17 L Anion Gap 8 Blood Urea Nitrogen 12 Creatinine 1.06 Est Glomerular > 60 Filtrat Rate mL/min Glucose Level 129 # Calcium Level 7.6 L Phosphorus Level 4.8 Magnesium Level 1.7 Test 09/05/18 11:37 Bedside Glucose 141 Medications Medication Current Medications Ondansetron HCl (Zofran Inj) 4 mg Q6H PRN IV NAUSEA AND/OR VOMITING; Start 08/25/18 at 20:00 Albuterol (Proventil 0.083% (Neb)) 2.5 mg Q2H RESP THERAPY PRN NEB SHORTNESS OF BREATH; Start 08/25/18 at 20:00 Ipratropium [place] (Atrovent 0.02% (Neb)) 0.5 mg Q2H RESP THERAPY PRN NEB SHORTNESS OF BREATH; Start 08/25/18 at 20:00 Acetaminophen (Tylenol Liquid) 650 mg Q6H PRN PO PAIN LEVEL 1-3 OR FEVER Last administered on 08/30/18at 00:45; Admin Dose 650 MG; Start 08/25/18 at 20:00 Morphine Sulfate (morphine) 1 mg Q4H PRN IV PAIN LEVEL 7-10; Start 08/25/18 at 20:00 Potassium Chloride 50 ml @ 50 mls/hr K PROTOCOL PRN IVPB PENDING LAB VALUE Last administered on 08/26/18at 17:23; Admin Dose 50 MLS/HR; Start 08/26/18 at 04:30 Miscellaneous Information 1 ea NOTE XX ; Start 08/26/18 at 05:00 Glucose (Glutose) 15 gm Q15M PRN PO DECREASED GLUCOSE; Start 08/26/18 at 05:00 Glucose (Glutose) 22.5 gm Q15M PRN PO DECREASED GLUCOSE; Start 08/26/18 at 05:00 Dextrose (D50w Syringe) 25 ml Q15M PRN IV DECREASED GLUCOSE; Start 08/26/18 at 05:00 Dextrose (D50w Syringe) 50 ml Q15M PRN IV DECREASED GLUCOSE; Start 08/26/18 at 05:00 Glucagon (Glucagen) 1 mg Q15M PRN IM DECREASED GLUCOSE; Start 08/26/18 at 05:00 Glucose (Glutose) 15 gm Q15M PRN BUCCAL DECREASED GLUCOSE; Start 08/26/18 at 05:00 Folic Acid (Folic Acid) 1 mg DAILY PO Last administered on 09/05/18at 08:02; Admin Dose 1 MG; Start 08/26/18 at 09:00 Multivitamins Therapeutic (Theragran) 1 tab DAILY PO Last administered on 09/05/18at 08:03; Admin Dose 1 TAB; Start 08/26/18 at 09:00 Thiamine HCl (Vitamin B1) 100 mg DAILY PO Last administered on 09/05/18 08:03; Admin Dose 100 MG; Start 08/26/18 at 09:00 Insulin Aspart (Novolog Insulin Pen) NOVOLOG *MODERATE* ALGORITHM WITH MEALS BEDTIME SC Last administered on 09/05/18 11:40; Admin Dose 2 UNIT; Start 08/26/18 at 11:30 Famotidine (Pepcid) 20 mg DAILY PO Last administered on 09/05/18 08:03; Admin Dose 20 MG; Start 08/27/18 at 09:00 Simethicone (Mylicon) 80 mg Q8 PRN PO DISTENSION/GAS/BLOATING Last administered on 08/27/18 21:52; Admin Dose 80 MG; Start 08/27/18 at 21:00 Potassium Chloride (Klor-Con 20) 60 meq DAILY PO Last administered on 09/05/18 08:02; Admin Dose 60 MEQ; Start 08/29/18 at 09:00 Levofloxacin/ Dextrose 100 ml @ 100 mls/hr Q24H IVPB Last administered on 09/05/18 01:19; Admin Dose 100 MLS/HR; Start 08/30/18 at 01:30 Linagliptin (Tradjenta) 5 mg DAILY PO Last administered on 09/05/18 08:03; Admin Dose 5 MG; Start 09/02/18 at 13:00 Metformin HCl (Glucophage) 500 mg BID WITH MEALS PO Last administered on 09/05/18 08:02; Admin Dose 500 MG; Start 09/03/18 at 18:00 Empaglifozin (Jardiance) 25 mg DAILY@08 PO Last administered on 09/05/18 08:03; Admin Dose 25 MG; Start 09/04/18 at 10:00 CRISTY QUIÑONES NP Sep 05, 2018 15:42
[2018-09-06] VITALS (11 sets, daily range): BP systolic 98–107; BP diastolic 63–74; PULSE 89–121; RESP 18–20
[2018-09-06] MEDS: LEVOFLOXACIN 500MG/D5W (PMX) 100 ML IVPB SCH (00:36)
[2018-09-06] MEDS: metFORMIN 500 MG TAB PO SCH ×2 (07:35→17:31)
[2018-09-06] MEDS: INSULIN ASPART [NOVOLOG] 3 ML PEN SC SCH ×4 (07:36→21:00)
[2018-09-06] MEDS: EMPAGLIFLOZIN 10 MG TABLET PO SCH (07:36)
[2018-09-06] MEDS: THIAMINE 100 MG TAB PO SCH (08:11)
[2018-09-06] MEDS: FOLIC ACID 1 MG TAB PO SCH (08:11)
[2018-09-06] MEDS: LINAGLIPTIN 5 MG TABLET PO SCH (08:11)
[2018-09-06] MEDS: POTASSIUM CHLORIDE (SR) 20 MEQ TAB PO SCH (08:11)
[2018-09-06] MEDS: MULTIVITAMINS THERAPEUTIC TAB PO SCH (08:11)
[2018-09-06] MEDS: FAMOTIDINE 20 MG TAB PO SCH (08:11)
--- NOTE | 2018-09-06 08:43 | PN ---
DATE: 09/06/2018 SUBJECTIVE: The patient is stable. No events overnight. OBJECTIVE: VITAL SIGNS: Blood pressure is 101/63, pulse 89, respiration 18, temperature 98.3. HEENT: Head is normocephalic. NECK: Supple. HEART: Regular rate. LUNGS: Show diminished breath sounds at the base. ABDOMEN: Soft, nontender to palpation without rebound or guarding. EXTREMITIES: Negative for clubbing, cyanosis, no edema. DERMATOLOGIC: No rashes. MUSCULOSKELETAL: No joint effusion. NEUROLOGIC: No change in exam. MEDICATIONS: The patient's medications have been reviewed. LABORATORY DATA: Has been reviewed. Imaging studies have been reviewed. ASSESSMENT AND PLAN: 1. Nonoliguric acute injury. Etiology is secondary to hemodynamics. Renal function is improved. C ontinue to monitor. 2. Hypomagnesemia. Etiology is likely due to renal magnesium wasting due to chronic ETOH abuse. Co ntinue to monitor and replete. 3. Hypokalemia. Etiology is secondary to hypermagnesemia, total body deficit. Continue to correct u nderlying hypomagnesemia. Continue to replete and correct underlying hypokalemia. 4. Hypernatremia. Continue to monitor. Limit free water intake. 5. Anemia. Monitor hemoglobin and hematocrit levels. 6. Mineral bone disorder. Monitor calcium and phosphorus levels. 7. Severe sepsis secondary to urinary tract infection. The patient is completing antibiotic course. 8. ETOH abuse. Monitor for withdrawals. Possible ETOH hepatitis. Continue to monitor. 9. Diabetes. Continue current insulin regimen. Dictated By: EMILY CARLSON DO NR/NTS Conf#: [id number] DID#: [id number] CC: ZAINAB WASHBURN MD; ALIS FINE;*EndCC*
[2018-09-06] MEDS ORDERED: MAGNESIUM SULFATE 2 GM/50 ML 50 ML IVPB ONE (09:00)
[2018-09-06] MEDS: MAGNESIUM OXIDE 400 MG TAB PO SCH (09:37)
--- NOTE | 2018-09-06 13:37 | CONS ---
Assessment/Plan Assessment/Plan Problems: (1) Type 2 diabetes mellitus without complications Status: Chronic Comment: Excellent glycemic control on only oral meds. No insulin therapy. Cont. current regimen. Will follow. Qualifiers: Diabetes mellitus director long term care insulin use: without director long term care use Qualified Codes: E11.9 - Type 2 diabetes mellitus without complications Consultation Date/Type/Reason Admit Date/Time Aug 25, 2018 at 19:52 Initial Consult Date 09/01/18 Type of Consult Endocrinology Reason for Consultation T1DM vs. T2DM Requesting Provider: ALIS FINE Date/Time of Note DATE: 09/06/18 TIME: 13:35 24 HR Interval Summary Constitutional: no complaints, improved Detailed Summary Respiratory: no complaints Cardiovascular: no complaints Gastrointestinal: no complaints Genitourinary: no complaints Musculoskeletal: no complaints Neurologic: no complaints Exam/Review of Systems Exam Vitals VS - Last 72 Hours, by Label Date Temp Pulse Resp B/P (MAP) Pulse Ox O2 O2 Flow FiO2 Time Delivery Rate 09/06/18 97.8 109 18 101/68 97 Room Air 11:09 (79) 09/06/18 105 08:00 09/06/18 98.3 89 18 101/63 97 Room Air 07:13 (76) 09/06/18 121 04:00 09/06/18 99.0 119 20 107/74 97 03:46 (85) 09/06/18 119 00:00 09/05/18 100.0 117 20 112/72 97 23:22 (85) 09/05/18 124 20:00 09/05/18 98.4 124 20 106/69 91 19:22 (81) 09/05/18 107 16:30 09/05/18 98.6 108 20 100/72 98 Room Air 15:02 (81) 09/05/18 102 13:34 09/05/18 98.2 103 20 98/62 (74) 98 Room Air 11:14 09/05/18 108 09:04 09/05/18 97.8 112 20 105/69 98 Room Air 07:29 (81) 09/05/18 111 04:00 09/05/18 98.7 111 18 101/69 98 03:27 (80) 09/05/18 115 00:00 09/04/18 98.6 115 18 107/72 99 23:52 (84) 09/04/18 117 20:00 09/04/18 98.6 120 18 108/73 97 19:40 (85) 09/04/18 113 16:00 09/04/18 98.0 77 18 105/70 96 15:15 (82) 09/04/18 128 12:00 09/04/18 98.1 69 18 97/62 (74) 96 11:24 09/04/18 109 08:00 09/04/18 98.3 79 19 99/69 (79) 97 07:36 09/04/18 106 04:00 09/04/18 98.5 99 18 108/73 98 04:00 (85) 09/04/18 121 00:00 09/04/18 98.3 115 18 111/73 98 00:00 (86) 09/03/18 98.4 118 19 102/72 97 20:00 (82) 09/03/18 119 20:00 09/03/18 115 16:31 09/03/18 98.1 110 19 116/78 96 15:59 (91) Vital Signs Date Temp Pulse Resp B/P (MAP) Pulse Ox O2 O2 Flow FiO2 Time Delivery Rate 09/06/18 97.8 109 18 101/68 97 Room Air 11:09 (79) Intake and Output 09/05/18 09/05/18 09/06/18 1515:00 23:00 07:00 IntakeIntake Total 960 ml 350 ml 260 ml OutputOutput Total 250 ml BalanceBalance 710 ml 350 ml 260 ml Constitutional: alert, oriented, well developed Psych: no complaints, nl mood/affect Respiratory: clear to auscultation, normal air movement Cardiovascular: regular rate and rhythm, nl pulses; No edema, No murmurs/extra sounds, No rub Gastrointestinal: soft, nl liver, spleen, non-tender, ascites, bowel sounds; No mass, No rebound or guarding Musculoskeletal: nl extremities to inspection Extremities: normal pulses; No cyanosis, No clubbing, No edema 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, nl mental status, nl speech, nl strength Additional Comments Bedside Glucose - 72 Hours Test 09/03/18 17:03 09/03/18 20:38 09/04/18 07:37 09/04/18 11:40 Bedside 114 113 295 58 Glucose mg/dL (70-220) mg/dL (70-220) mg/dL (70-220) mg/dL (70-220) H L Test 09/04/18 12:09 09/04/18 17:10 09/04/18 21:06 09/05/18 07:33 Bedside 82 107 103 92 Glucose mg/dL (70-220) mg/dL (70-220) mg/dL (70-220) mg/dL (70-220) Test 09/05/18 11:37 09/05/18 17:14 09/05/18 20:49 09/06/18 07:34 Bedside 141 141 149 82 Glucose mg/dL (70-220) mg/dL (70-220) mg/dL (70-220) mg/dL (70-220) Test 09/06/18 11:23 Bedside 132 Glucose mg/dL (70-220) Results Result Diagram: 09/06/18 0452 09/06/18 0452 Results 24hrs Laboratory Tests Test 09/05/18 17:14 09/05/18 20:49 09/06/18 04:52 09/06/18 07:34 Bedside Glucose 141 149 82 White Blood Count 17.2 H Red Blood Count 2.80 L Hemoglobin 8.6 L Hematocrit 25.8 L Mean Corpuscular 92.1 Volume Mean Corpuscular 30.7 Hemoglobin Mean Corpuscular 33.3 Hemoglobin Concent Red Cell 15.9 H Distribution Width Platelet Count 210 Mean Platelet Volume 9.3 Immature 1.200 H Granulocytes % Neutrophils % 72.1 Lymphocytes % 16.2 Monocytes % 9.3 Eosinophils % 1.0 Basophils % 0.2 Nucleated Red Blood 0.0 Cells % Immature 0.210 H Granulocytes # Neutrophils # 12.4 H Lymphocytes # 2.8 Monocytes # 1.6 H Eosinophils # 0.2 Basophils # 0.0 Nucleated Red Blood 0.0 Cells # Sodium Level 133 L Potassium Level 3.3 L Chloride Level 107 Carbon Dioxide Level 18 L Anion Gap 8 Blood Urea Nitrogen 12 Creatinine 1.13 Est Glomerular > 60 Filtrat Rate mL/min Glucose Level 103 Calcium Level 7.7 L Phosphorus Level 5.1 H Magnesium Level 1.6 L Test 09/06/18 11:23 Bedside Glucose 132 Medications Medication Current Medications Ondansetron HCl (Zofran Inj) 4 mg Q6H PRN IV NAUSEA AND/OR VOMITING; Start 08/25/18 at 20:00 Albuterol (Proventil 0.083% (Neb)) 2.5 mg Q2H RESP THERAPY PRN NEB SHORTNESS OF BREATH; Start 08/25/18 at 20:00 Ipratropium [place] (Atrovent 0.02% (Neb)) 0.5 mg Q2H RESP THERAPY PRN NEB SHORTNESS OF BREATH; Start 08/25/18 at 20:00 Acetaminophen (Tylenol Liquid) 650 mg Q6H PRN PO PAIN LEVEL 1-3 OR FEVER Last administered on 08/30/18at 00:45; Admin Dose 650 MG; Start 08/25/18 at 20:00 Morphine Sulfate (morphine) 1 mg Q4H PRN IV PAIN LEVEL 7-10; Start 08/25/18 at 20:00 Potassium Chloride 50 ml @ 50 mls/hr K PROTOCOL PRN IVPB PENDING LAB VALUE Last administered on 08/26/18at 17:23; Admin Dose 50 MLS/HR; Start 08/26/18 at 04:30 Miscellaneous Information 1 ea NOTE XX ; Start 08/26/18 at 05:00 Glucose (Glutose) 15 gm Q15M PRN PO DECREASED GLUCOSE; Start 08/26/18 at 05:00 Glucose (Glutose) 22.5 gm Q15M PRN PO DECREASED GLUCOSE; Start 08/26/18 at 0 5:00 Dextrose (D50w Syringe) 25 ml Q15M PRN IV DECREASED GLUCOSE; Start 08/26/18 at 05:00 Dextrose (D50w Syringe) 50 ml Q15M PRN IV DECREASED GLUCOSE; Start 08/26/18 at 05:00 Glucagon (Glucagen) 1 mg Q15M PRN IM DECREASED GLUCOSE; Start 08/26/18 at 05:00 Glucose (Glutose) 15 gm Q15M PRN BUCCAL DECREASED GLUCOSE; Start 08/26/18 at 05:00 Folic Acid (Folic Acid) 1 mg DAILY PO Last administered on 09/06/18at 08:11; Admin Dose 1 MG; Start 08/26/18 at 09:00 Multivitamins Therapeutic (Theragran) 1 tab DAILY PO Last administered on 09/06/18at 08:11; Admin Dose 1 TAB; Start 08/26/18 at 09:00 Thiamine HCl (Vitamin B1) 100 mg DAILY PO Last administered on 09/06/18 08:11; Admin Dose 100 MG; Start 08/26/18 at 09:00 Insulin Aspart (Novolog Insulin Pen) NOVOLOG *MODERATE* ALGORITHM WITH MEALS BEDTIME SC Last administered on 09/05/18 17:22; Admin Dose 2 UNIT; Start 08/26/18 at 11:30 Famotidine (Pepcid) 20 mg DAILY PO Last administered on 09/06/18 08:11; Admin Dose 20 MG; Start 08/27/18 at 09:00 Simethicone (Mylicon) 80 mg Q8 PRN PO DISTENSION/GAS/BLOATING Last administered on 08/27/18 21:52; Admin Dose 80 MG; Start 08/27/18 at 21:00 Potassium Chloride (Klor-Con 20) 60 meq DAILY PO Last administered on 09/06/18 08:11; Admin Dose 60 MEQ; Start 08/29/18 at 09:00 Levofloxacin/ Dextrose 100 ml @ 100 mls/hr Q24H IVPB Last administered on 09/06/18 00:36; Admin Dose 100 MLS/HR; Start 08/30/18 at 01:30 Linagliptin (Tradjenta) 5 mg DAILY PO Last administered on 09/06/18 08:11; Admin Dose 5 MG; Start 09/02/18 at 13:00 Metformin HCl (Glucophage) 500 mg BID WITH MEALS PO Last administered on 09/06/18 07:35; Admin Dose 500 MG; Start 09/03/18 at 18:00 Empaglifozin (Jardiance) 25 mg DAILY@08 PO Last administered on 09/06/18 07:36; Admin Dose 25 MG; Start 09/04/18 at 10:00 Magnesium Oxide (Mag-Ox 400) 400 mg DAILY PO Last administered on 09/06/18 09:37; Admin Dose 400 MG; Start 09/06/18 at 09:00 DELIO CESPEDES MD Sep 06, 2018 13:37
--- NOTE | 2018-09-06 16:00 | PN ---
Date/Time of Note Date/Time of Note DATE: 09/06/18 TIME: 15:56 Assessment/Plan VTE Prophylaxis Risk score (from Nsg)>0 risk: 0 SCD applied (from Ns): No SCD contraindicated: low risk/ambulating Pharmacological prophylaxis: NA/contraindicated Pharm contraindication: low risk/ambulating Lines/Catheters IV Catheter Type (from Nrs): Saline Lock Urinary Cath still in place: No Assessment/Plan Assessment/Plan 38 yo man with newly diagnosed diabetes and history of alcoholic hepatitis presents with UTI in hyperosmolar hyperglycemic state. #Diabetes mellitus - newly diagnosed A1c 10.2. -Patient also presented with hyperglycemia. Sugars improved now. -Continue insulin sliding scale, Jardace and metformin ordered by endoc rinology team, glargine qhs per endocrinology recommendations -Insulin antibody negative. It's type II diabetes. # Severe sepsis: - Probably due to UTI- Blood, urine cultures growing hernandes-sensitive E coli. 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 -Follow-up repeat blood culture results -Appreciate hematology oncology consult, follow-up results of flow cytometry- apparently results of this still pending #Hypokalemia- Requiring daily PO replacement -Monitor, replete as needed including today, will also replete low magnesium levels as they are related -Again lactulose has been stopped for the last 5 days secondary to normal ammonia levels at that time #Abdominal distention: Likely secondary to ascites, improving now after paracentesis performed -Monitor for now, follow-up final fluid studies including culture # Acute encephalopathy: Resolved now -Monitor # history of alcoholic hepatitis with likely early cirrhosis: Status post paracentesis 5 days ago DVT GI prophylaxis: SCDs, H2 nicole Dispo: Anticipate discharge in 24-48 hours Result Diagram: 09/06/18 0452 09/06/18 0452 Subjective 24 Hr Interval Summary Free Text/Dictation No acute overnight events. Patient feeling well, no complaints. Exam/Review of Systems Exam Vitals Vital Signs Date Temp Pulse Resp B/P (MAP) Pulse Ox O2 O2 Flow FiO2 Time Delivery Rate 09/06/18 98.9 112 18 102/69 100 Room Air 15:12 (80) Intake and Output 09/05/18 09/05/18 09/06/18 1515:00 23:00 07:00 IntakeIntake Total 960 ml 350 ml 260 ml OutputOutput Total 250 ml BalanceBalance 710 ml 350 ml 260 ml Exam General: Lying in bed, no acute distress HEENT: Atraumatic, normocephalic. The pupils are equal, round and reactive. Extraocular motor are intact Neck: Supple with full range of motion. No rigidity or meningismus Chest: Nontender Lungs: Clear to auscultation bilaterally no crackles rales or wheezing Heart: Normal S1-S2, Regular rhythm and rate. No murmur, S3, or S4 Abdomen: Soft , slightly more distended abdomen/ascites, bowel sounds are present. No guarding no rebound tenderness Extremities: No lower exam edema bilaterally Results Results 24hrs Laboratory Tests Test 09/05/18 17:14 09/05/18 20:49 09/06/18 04:52 09/06/18 07:34 Bedside Glucose 141 149 82 White Blood Count 17.2 H Red Blood Count 2.80 L Hemoglobin 8.6 L Hematocrit 25.8 L Mean Corpuscular 92.1 Volume Mean Corpuscular 30.7 Hemoglobin Mean Corpuscular 33.3 Hemoglobin Concent Red Cell 15.9 H Distribution Width Platelet Count 210 Mean Platelet Volume 9.3 Immature 1.200 H Granulocytes % Neutrophils % 72.1 Lymphocytes % 16.2 Monocytes % 9.3 Eosinophils % 1.0 Basophils % 0.2 Nucleated Red Blood 0.0 Cells % Immature 0.210 H Granulocytes # Neutrophils # 12.4 H Lymphocytes # 2.8 Monocytes # 1.6 H Eosinophils # 0.2 Basophils # 0.0 Nucleated Red Blood 0.0 Cells # Sodium Level 133 L Potassium Level 3.3 L Chloride Level 107 Carbon Dioxide Level 18 L Anion Gap 8 Blood Urea Nitrogen 12 Creatinine 1.13 Est Glomerular > 60 Filtrat Rate mL/min Glucose Level 103 Calcium Level 7.7 L Phosphorus Level 5.1 H Magnesium Level 1.6 L Test 09/06/18 11:23 Bedside Glucose 132 Medications Medication Current Medications Ondansetron HCl (Zofran Inj) 4 mg Q6H PRN IV NAUSEA AND/OR VOMITING; Start 08/25/18 at 20:00 Albuterol (Proventil 0.083% (Neb)) 2.5 mg Q2H RESP THERAPY PRN NEB SHORTNESS OF BREATH; Start 08/25/18 at 20:00 Ipratropium [place] (Atrovent 0.02% (Neb)) 0.5 mg Q2H RESP THERAPY PRN NEB SHORTNESS OF BREATH; Start 08/25/18 at 20:00 Acetaminophen (Tylenol Liquid) 650 mg Q6H PRN PO PAIN LEVEL 1-3 OR FEVER Last administered on 08/30/18at 00:45; Admin Dose 650 MG; Start 08/25/18 at 20:00 Morphine Sulfate (morphine) 1 mg Q4H PRN IV PAIN LEVEL 7-10; Start 08/25/18 at 20:00 Potassium Chloride 50 ml @ 50 mls/hr K PROTOCOL PRN IVPB PENDING LAB VALUE Last administered on 08/26/18at 17:23; Admin Dose 50 MLS/HR; Start 08/26/18 at 04:30 Miscellaneous Information 1 ea NOTE XX ; Start 08/26/18 at 05:00 Glucose (Glutose) 15 gm Q15M PRN PO DECREASED GLUCOSE; Start 08/26/18 at 05:00 Glucose (Glutose) 22.5 gm Q15M PRN PO DECREASED GLUCOSE; Start 08/26/18 at 05:00 Dextrose (D50w Syringe) 25 ml Q15M PRN IV DECREASED GLUCOSE; Start 08/26/18 at 05:00 Dextrose (D50w Syringe) 50 ml Q15M PRN IV DECREASED GLUCOSE; Start 08/26/18 at 05:00 Glucagon (Glucagen) 1 mg Q15M PRN IM DECREASED GLUCOSE; Start 08/26/18 at 05:00 Glucose (Glutose) 15 gm Q15M PRN BUCCAL DECREASED GLUCOSE; Start 08/26/18 at 05:00 Folic Acid (Folic Acid) 1 mg DAILY PO Last administered on 09/06/18at 08:11; Admin Dose 1 MG; Start 08/26/18 at 09:00 Multivitamins Therapeutic (Theragran) 1 tab DAILY PO Last administered on 09/06/18at 08:11; Admin Dose 1 TAB; Start 08/26/18 at 09:00 Thiamine HCl (Vitamin B1) 100 mg DAILY PO Last administered on 09/06/18 08:11; Admin Dose 100 MG; Start 08/26/18 at 09:00 Insulin Aspart (Novolog Insulin Pen) NOVOLOG *MODERATE* ALGORITHM WITH MEALS BEDTIME SC Last administered on 09/05/18at 17:22; Admin Dose 2 UNIT; Start 08/26/18 at 11:30 Famotidine (Pepcid) 20 mg DAILY PO Last administered on 09/06/18 08:11; Admin Dose 20 MG; Start 08/27/18 at 09:00 Simethicone (Mylicon) 80 mg Q8 PRN PO DISTENSION/GAS/BLOATING Last administered on 08/27/18at 21:52; Admin Dose 80 MG; Start 08/27/18 at 21:00 Potassium Chloride (Klor-Con 20) 60 meq DAILY PO Last administered on 09/06/18 08:11; Admin Dose 60 MEQ; Start 08/29/18 at 09:00 Levofloxacin/ Dextrose 100 ml @ 100 mls/hr Q24H IVPB Last administered on 09/06/18 00:36; Admin Dose 100 MLS/HR; Start 08/30/18 at 01:30 Linagliptin (Tradjenta) 5 mg DAILY PO Last administered on 09/06/18 08:11; Admin Dose 5 MG; Start 09/02/18 at 13:00 Metformin HCl (Glucophage) 500 mg BID WITH MEALS PO Last administered on 09/06/18 07:35; Admin Dose 500 MG; Start 09/03/18 at 18:00 Empaglifozin (Jardiance) 25 mg DAILY@08 PO Last administered on 09/06/18at 0 7:36; Admin Dose 25 MG; Start 09/04/18 at 10:00 Magnesium Oxide (Mag-Ox 400) 400 mg DAILY PO Last administered on 09/06/18 09:37; Admin Dose 400 MG; Start 09/06/18 at 09:00 JONN SEAY MD Sep 06, 2018 16:00
--- NOTE | 2018-09-06 20:48 | CONS ---
Assessment/Plan Assessment/Plan Hospital Course (Demo Recall) assessment/impression - severe sepsis (leukocytosis, tachycardia, RR>20 and lactic acid>4) due to bacteremia, UTI and peritonitis on admission, resolving - recurrent UTI and bacteremia with the same species of bacteria: concerning for deep seated infection/source, possibly prostate. Transthoracic echo on 08/30/2018 showed no e/o valvular vegetation - diarrhea, was on lactulose - recurent ascites - s/p paracentesis on 08/31/2018: WBC 2601, PMNs 54.1%, protein <2, LDH 416, culture negative peritonitis - hepatic encephalopathy on presentation. His head CT on 08/26/2018 showing no acute abnormalities - the presence of immature granulocytes, a reactive process - unintentional 15 lb weight loss: could reflect on-going (occult/deep seated) infection but also his alcoholic hepatitis - recurrent TORIBIO - newly diagnosed with DM: Hgb A1c on 08/26/2018 was 10.2 while that on 07/01/2018 was 6.3 - nonspecific gallbladder wall thickening identified on abd CT and abd MRI in 06/2018 - alcoholic hepatitis, hepatitis ABC screen was negative in 06/2018 - smokes marijuana recommendations: - pending results: flow cytometry - continue levofloxacin (08/30/2018-) for a concern of 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 Pt previously took pip/tazo (08/24/2018-08/29/2018). For prostatitis, I recommend total 6 weeks of antibiotic (including the dates of pip/tazo), from 08/24/2018 trough 10/05/2018 management d/w Pt Consultation Date/Type/Reason Admit Date/Time Aug 25, 2018 at 19:52 Initial Consult Date 08/29/18 Type of Consult ID Requesting Provider: ALIS FINE Date/Time of Note DATE: 09/06/18 TIME: 20:46 24 HR Interval Summary Constitutional: no complaints Detailed Summary Eyes: no complaints ENT: no complaints Respiratory: no complaints Cardiovascular: no complaints Gastrointestinal: other (bloating again) Genitourinary: no complaints Musculoskeletal: no complaints Skin: no complaints Neurologic: no complaints Exam/Review of Systems Exam Vitals Vital Signs Date Temp Pulse Resp B/P (MAP) Pulse Ox O2 O2 Flow FiO2 Time Delivery Rate 09/06/18 99.2 118 18 98/68 (78) 97 20:15 6/24/19 Room Air 15:12 Intake and Output 09/05/18 09/05/18 09/06/18 1515:00 23:00 07:00 IntakeIntake Total 960 ml 350 ml 260 ml OutputOutput Total 250 ml BalanceBalance 710 ml 350 ml 260 ml Constitutional: alert, oriented, well developed Psych: no complaints, nl mood/affect Head: normocephalic, atraumatic Eyes: nl conjunctiva, nl lids ENMT: nl external ears & nose, nl nasal mucosa & septum, mucosa pink and moist Neck: supple Respiratory: clear to auscultation, normal air movement Cardiovascular: regular rate and rhythm, nl pulses Gastrointestinal: soft, non-tender, ascites, bowel sounds, distended; No firm, No mass, No tender Musculoskeletal: nl extremities to inspection Extremities: normal pulses 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, nl mental status, nl speech, nl strength Skin: nl turgor; No rash or lesions Results Result Diagram: 09/06/18 0452 09/06/18 0452 Results 24hrs Laboratory Tests Test 09/05/18 20:49 09/06/18 04:52 09/06/18 07:34 09/06/18 11:23 Bedside Glucose 149 82 132 White Blood Count 17.2 H Red Blood Count 2.80 L Hemoglobin 8.6 L Hematocrit 25.8 L Mean Corpuscular 92.1 Volume Mean Corpuscular 30.7 Hemoglobin Mean Corpuscular 33.3 Hemoglobin Concent Red Cell 15.9 H Distribution Width Platelet Count 210 Mean Platelet Volume 9.3 Immature 1.200 H Granulocytes % Neutrophils % 72.1 Lymphocytes % 16.2 Monocytes % 9.3 Eosinophils % 1.0 Basophils % 0.2 Nucleated Red Blood 0.0 Cells % Immature 0.210 H Granulocytes # Neutrophils # 12.4 H Lymphocytes # 2.8 Monocytes # 1.6 H Eosinophils # 0.2 Basophils # 0.0 Nucleated Red Blood 0.0 Cells # Sodium Level 133 L Potassium Level 3.3 L Chloride Level 107 Carbon Dioxide Level 18 L Anion Gap 8 Blood Urea Nitrogen 12 Creatinine 1.13 Est Glomerular > 60 Filtrat Rate mL/min Glucose Level 103 Calcium Level 7.7 L Phosphorus Level 5.1 H Magnesium Level 1.6 L Test 09/06/18 17:25 09/06/18 20:40 Bedside Glucose 197 88 Medications Medication Current Medications Ondansetron HCl (Zofran Inj) 4 mg Q6H PRN IV NAUSEA AND/OR VOMITING; Start 08/25/18 at 20:00 Albuterol (Proventil 0.083% (Neb)) 2.5 mg Q2H RESP THERAPY PRN NEB SHORTNESS OF BREATH; Start 08/25/18 at 20:00 Ipratropium [place] (Atrovent 0.02% (Neb)) 0.5 mg Q2H RESP THERAPY PRN NEB SHORTNESS OF BREATH; Start 08/25/18 at 20:00 Acetaminophen (Tylenol Liquid) 650 mg Q6H PRN PO PAIN LEVEL 1-3 OR FEVER Last administered on 08/30/18at 00:45; Admin Dose 650 MG; Start 08/25/18 at 20:00 Morphine Sulfate (morphine) 1 mg Q4H PRN IV PAIN LEVEL 7-10; Start 08/25/18 at 20:00 Potassium Chloride 50 ml @ 50 mls/hr K PROTOCOL PRN IVPB PENDING LAB VALUE Last administered on 08/26/18at 17:23; Admin Dose 50 MLS/HR; Start 08/26/18 at 04:30 Miscellaneous Information 1 ea NOTE XX ; Start 08/26/18 at 05:00 Glucose (Glutose) 15 gm Q15M PRN PO DECREASED GLUCOSE; Start 08/26/18 at 05:00 Glucose (Glutose) 22.5 gm Q15M PRN PO DECREASED GLUCOSE; Start 08/26/18 at 05:00 Dextrose (D50w Syringe) 25 ml Q15M PRN IV DECREASED GLUCOSE; Start 08/26/18 at 05:00 Dextrose (D50w Syringe) 50 ml Q15M PRN IV DECREASED GLUCOSE; Start 08/26/18 at 05:00 Glucagon (Glucagen) 1 mg Q15M PRN IM DECREASED GLUCOSE; Start 08/26/18 at 05:00 Glucose (Glutose) 15 gm Q15M PRN BUCCAL DECREASED GLUCOSE; Start 08/26/18 at 05:00 Folic Acid (Folic Acid) 1 mg DAILY PO Last administered on 09/06/18at 08:11; Admin Dose 1 MG; Start 08/26/18 at 09:00 Multivitamins Therapeutic (Theragran) 1 tab DAILY PO Last administered on 6/24/19at 08:11; Admin Dose 1 TAB; Start 08/26/18 at 09:00 Thiamine HCl (Vitamin B1) 100 mg DAILY PO Last administered on 09/06/18 08:11; Admin Dose 100 MG; Start 08/26/18 at 09:00 Insulin Aspart (Novolog Insulin Pen) NOVOLOG *MODERATE* ALGORITHM WITH MEALS BEDTIME SC Last administered on 09/06/18 17:29; Admin Dose 4 UNIT; Start 08/26/18 at 11:30 Famotidine (Pepcid) 20 mg DAILY PO Last administered on 09/06/18 08:11; Admin Dose 20 MG; Start 08/27/18 at 09:00 Simethicone (Mylicon) 80 mg Q8 PRN PO DISTENSION/GAS/BLOATING Last administered on 08/27/18 21:52; Admin Dose 80 MG; Start 08/27/18 at 21:00 Potassium Chloride (Klor-Con 20) 60 meq DAILY PO Last administered on 09/06/18 08:11; Admin Dose 60 MEQ; Start 08/29/18 at 09:00 Levofloxacin/ Dextrose 100 ml @ 100 mls/hr Q24H IVPB Last administered on 09/06/18 00:36; Admin Dose 100 MLS/HR; Start 08/30/18 at 01:30 Linagliptin (Tradjenta) 5 mg DAILY PO Last administered on 09/06/18 08:11; Admin Dose 5 MG; Start 09/02/18 at 13:00 Metformin HCl (Glucophage) 500 mg BID WITH MEALS PO Last administered on 09/06/18 17:31; Admin Dose 500 MG; Start 09/03/18 at 18:00 Empaglifozin (Jardiance) 25 mg DAILY@08 PO Last administered on 09/06/18 07:36; Admin Dose 25 MG; Start 09/04/18 at 10:00 Magnesium Oxide (Mag-Ox 400) 400 mg DAILY PO Last administered on 09/06/18 09:37; Admin Dose 400 MG; Start 09/06/18 at 09:00 ZAINAB WASHBURN M.D. Sep 06, 2018 20:48
[2018-09-06] MEDS ORDERED: traZODone 50 MG TAB PO SCH (23:16)
[2018-09-07] VITALS (8 sets, daily range): BP systolic 93–108; BP diastolic 63–76; PULSE 105–121; RESP 17–18
[2018-09-07] MEDS: LEVOFLOXACIN 500MG/D5W (PMX) 100 ML IVPB SCH (00:19)
[2018-09-07] MEDS: INSULIN ASPART [NOVOLOG] 3 ML PEN SC SCH ×3 (07:42→17:16)
[2018-09-07] MEDS: MAGNESIUM OXIDE 400 MG TAB PO SCH (08:14)
[2018-09-07] MEDS: THIAMINE 100 MG TAB PO SCH (08:14)
[2018-09-07] MEDS: EMPAGLIFLOZIN 10 MG TABLET PO SCH (08:14)
[2018-09-07] MEDS: FAMOTIDINE 20 MG TAB PO SCH (08:14)
[2018-09-07] MEDS: LINAGLIPTIN 5 MG TABLET PO SCH (08:14)
[2018-09-07] MEDS: FOLIC ACID 1 MG TAB PO SCH (08:14)
[2018-09-07] MEDS: MULTIVITAMINS THERAPEUTIC TAB PO SCH (08:14)
[2018-09-07] MEDS: POTASSIUM CHLORIDE (SR) 20 MEQ TAB PO SCH (08:15)
[2018-09-07] MEDS: metFORMIN 500 MG TAB PO SCH ×2 (08:15→17:15)
--- NOTE | 2018-09-07 08:53 | PN ---
DATE: 09/07/2018 SUBJECTIVE: The patient is stable, no events overnight. OBJECTIVE: VITAL SIGNS: Blood pressure is 100/66, pulse 106, respiration 18, temperature 98.4. HEENT: Head is normocephalic. NECK: Supple. HEART: Regular rate. LUNGS: Show diminished breath sounds at the base. ABDOMEN: Soft, nontender to palpation without rebound or guarding. EXTREMITIES: Negative for clubbing, cyanosis, no edema. DERMATOLOGIC: No rashes. MUSCULOSKELETAL: No joint effusions. NEUROLOGIC: No change in exam. MEDICATIONS: The patient's medications have been reviewed. LABORATORY DATA: Has been reviewed. IMAGING STUDIES: Have been reviewed. ASSESSMENT AND PLAN: 1. Nonoliguric acute kidney injury. Etiology is secondary to hemodynamics. Renal function is impro andrez. Continue to monitor. 2. Hypomagnesemia, etiology secondary to renal magnesium wasting due to chronic ETOH use. Continue to monitor and replete. 3. Hypokalemia. Etiology is multifactorial likely secondary to total body deficit and hypomagnesemi a. A possible component of renal potassium wasting is a consideration. Will check a urinary potassi um level. Otherwise, continue to monitor and continue to replete potassium chloride, continue to cor rect underlying hypomagnesemia. 4. Hypernatremia. Continue to monitor and limit free water intake. 5. Anemia. Monitor H and H levels. 5. Mineral bone disorder. Monitor calcium and phosphorus levels. 6. Severe sepsis and a urinary tract infection. Continue antibiotic regimen. 7. ETOH abuse. Monitor for withdrawals. ETOH hepatitis. 8. Diabetes. Continue current insulin regimen. Dictated By: EMILY CARLSON DO NR/NTS Conf#: [id number] DID#: [id number] CC: APRIL SALAZAR MD; ALIS FINE; ZAINAB WASHBURN MD;*EndCC*
[2018-09-07] MEDS ORDERED: EMPA10TA PO (17:01)
[2018-09-07] MEDS ORDERED: LINA5TAB PO (17:01)
[2018-09-07] MEDS ORDERED: POTA20TA15 PO (17:01)
[2018-09-07] MEDS ORDERED: LEVO750T8 PO (17:01)
[2018-09-07] MEDS ORDERED: MAGN400T27 PO (17:01)
[2018-09-07] MEDS ORDERED: METF-849 PO (17:01)
--- NOTE | 2018-09-07 17:03 | PDOCDIS ---
Discharge Instructions DIAGNOSIS Discharge Diagnosis Newly diagnosed diabetes mellitus Prostatitis CONDITION Bticb2Pc Patient Condition: [id number] Good HOME CARE INSTRUCTIONS: [id number] Diet Instructions: Baknm3l Regular ACTIVITY: [id number] Activity Restrictions: [id number] No Restrictions FOLLOW UP/APPOINTMENTS Follow-up Plan 1. Take all medications as prescribed. If you cannot get levofloxacin or metformin, return to the emergency room. 2. See your primary care doctor in 1-2 weeks. 3. Completely stop all alcohol. Any further alcohol will cause permanent liver damage. JONN SEAY MD Sep 07, 2018 17:03
--- NOTE | 2018-09-07 17:49 | CONS ---
Assessment/Plan Assessment/Plan Problems: (1) Type 2 diabetes mellitus without complications Status: Chronic Comment: Excellent control. Would d/c home on current regimen. Qualifiers: Diabetes mellitus terminal operator insulin use: without care home use Qualified Codes: E11.9 - Type 2 diabetes mellitus without complications Consultation Date/Type/Reason Admit Date/Time Aug 25, 2018 at 19:52 Initial Consult Date 09/01/18 Type of Consult Endocrinology Reason for Consultation r/o T1DM vs. T2DM Requesting Provider: ALIS FINE Date/Time of Note DATE: 09/07/18 TIME: 17:48 24 HR Interval Summary Constitutional: no complaints, improved (going home) Detailed Summary Respiratory: no complaints Cardiovascular: no complaints Gastrointestinal: no complaints Genitourinary: no complaints Musculoskeletal: no complaints Neurologic: no complaints Exam/Review of Systems Exam Vitals VS - Last 72 Hours, by Label Date Temp Pulse Resp B/P (MAP) Pulse Ox O2 O2 Flow FiO2 Time Delivery Rate 09/07/18 112 17:13 09/07/18 98.0 113 18 108/73 98 15:18 (85) 09/07/18 105 12:15 09/07/18 98.3 116 17 103/71 98 12:06 (82) 09/07/18 106 08:29 09/07/18 98.4 112 18 100/66 98 07:16 (77) 09/07/18 115 04:00 09/07/18 98.3 121 18 93/63 (73) 96 Room Air 04:00 09/07/18 119 00:00 09/07/18 98.8 121 18 103/76 96 Room Air 00:00 (85) 09/06/18 99.2 118 18 98/68 (78) 97 20:15 09/06/18 118 20:00 09/06/18 118 16:00 09/06/18 98.9 112 18 102/69 100 Room Air 15:12 (80) 09/06/18 107 12:00 09/06/18 97.8 109 18 101/68 97 Room Air 11:09 (79) 09/06/18 105 08:00 09/06/18 98.3 89 18 101/63 97 Room Air 07:13 (76) 09/06/18 121 04:00 09/06/18 99.0 119 20 107/74 97 03:46 (85) 09/06/18 119 00:00 09/05/18 100.0 117 20 112/72 97 23:22 (85) 09/05/18 124 20:00 09/05/18 98.4 124 20 106/69 91 19:22 (81) 09/05/18 107 16:30 09/05/18 98.6 108 20 100/72 98 Room Air 15:02 (81) 09/05/18 102 13:34 09/05/18 98.2 103 20 98/62 (74) 98 Room Air 11:14 09/05/18 108 09:04 09/05/18 97.8 112 20 105/69 98 Room Air 07:29 (81) 09/05/18 111 04:00 09/05/18 98.7 111 18 101/69 98 03:27 (80) 09/05/18 115 00:00 09/04/18 98.6 115 18 107/72 99 23:52 (84) 09/04/18 117 20:00 09/04/18 98.6 120 18 108/73 97 19:40 (85) Vital Signs Date Temp Pulse Resp B/P (MAP) Pulse Ox O2 O2 Flow FiO2 Time Delivery Rate 09/07/18 112 17:13 09/07/18 98.0 18 108/73 98 15:18 (85) 09/07/18 Room Air 04:00 Intake and Output 09/06/18 09/06/18 09/07/18 1515:00 23:00 07:00 IntakeIntake Total 1010 ml 400 ml 250 ml OutputOutput Total 1580 ml 620 ml BalanceBalance -570 ml -220 ml 250 ml Constitutional: alert, oriented, well developed Psych: no complaints, nl mood/affect Respiratory: clear to auscultation, normal air movement Cardiovascular: regular rate and rhythm, nl pulses; No edema, No murmurs/extra sounds, No rub Gastrointestinal: soft, nl liver, spleen, non-tender, ascites, bowel sounds, distended; No mass, No rebound or guarding Musculoskeletal: nl extremities to inspection Extremities: normal pulses; No cyanosis, No clubbing, No edema 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: SOLE LAYER HAND II-XII intact, nl mental status, nl speech, nl strength Additional Comments Bedside Glucose - 72 Hours Test 09/04/18 21:06 09/05/18 07:33 09/05/18 11:37 09/05/18 17:14 Bedside 103 92 141 141 Glucose mg/dL (70-220) mg/dL (70-220) mg/dL (70-220) mg/dL (70-220) Test 09/05/18 20:49 09/06/18 07:34 09/06/18 11:23 09/06/18 17:25 Bedside 149 82 132 197 Glucose mg/dL (70-220) mg/dL (70-220) mg/dL (70-220) mg/dL (70-220) Test 09/06/18 20:40 09/07/18 07:38 09/07/18 11:46 09/07/18 17:15 Bedside 88 93 90 100 Glucose mg/dL (70-220) mg/dL (70-220) mg/dL (70-220) mg/dL (70-220) Results Result Diagram: 09/07/18 0503 09/07/18 0503 Results 24hrs Laboratory Tests Test 09/06/18 20:40 09/07/18 05:03 09/07/18 07:38 09/07/18 09:11 Bedside Glucose 88 93 White Blood Count 15.5 H Red Blood Count 2.87 L Hemoglobin 8.6 L Hematocrit 26.3 L Mean Corpuscular 91.6 Volume Mean Corpuscular 30.0 Hemoglobin Mean Corpuscular 32.7 Hemoglobin Concent Red Cell 16.0 H Distribution Width Platelet Count 196 Mean Platelet 9.3 Volume Immature 1.000 H Granulocytes % Neutrophils % 73.0 Lymphocytes % 15.5 Monocytes % 9.1 Eosinophils % 1.2 Basophils % 0.2 Nucleated Red 0.0 Blood Cells % Immature 0.150 H Granulocytes # Neutrophils # 11.3 H Lymphocytes # 2.4 Monocytes # 1.4 H Eosinophils # 0.2 Basophils # 0.0 Nucleated Red 0.0 Blood Cells # Sodium Level 132 L Potassium Level 3.3 L Chloride Level 106 Carbon Dioxide 18 L Level Anion Gap 8 Blood Urea 11 Nitrogen Creatinine 1.08 Est Glomerular > 60 Filtrat Rate mL/min Glucose Level 130 Calcium Level 7.4 L Lab Scanned Report REFERENCE LAB Test 09/07/18 11:46 09/07/18 12:09 09/07/18 17:15 Bedside Glucose 90 100 Urine Random 20.4 L Potassium Medications Medication Current Medications Ondansetron HCl (Zofran Inj) 4 mg Q6H PRN IV NAUSEA AND/OR VOMITING; Start 08/25/18 at 20:00 Albuterol (Proventil 0.083% (Neb)) 2.5 mg Q2H RESP THERAPY PRN NEB SHORTNESS OF BREATH; Start 08/25/18 at 20:00 Ipratropium [place] (Atrovent 0.02% (Neb)) 0.5 mg Q2H RESP THERAPY PRN NEB SHORTNESS OF BREATH; Start 08/25/18 at 20:00 Acetaminophen (Tylenol Liquid) 650 mg Q6H PRN PO PAIN LEVEL 1-3 OR FEVER Last administered on 08/30/18at 00:45; Admin Dose 650 MG; Start 08/25/18 at 20:00 Morphine Sulfate (morphine) 1 mg Q4H PRN IV PAIN LEVEL 7-10; Start 08/25/18 at 20:00 Potassium Chloride 50 ml @ 50 mls/hr K PROTOCOL PRN IVPB PENDING LAB VALUE Last administered on 08/26/18at 17:23; Admin Dose 50 MLS/HR; Start 08/26/18 at 04:30 Miscellaneous Information 1 ea NOTE XX ; Start 08/26/18 at 05:00 Glucose (Glutose) 15 gm Q15M PRN PO DECREASED GLUCOSE; Start 08/26/18 at 05:00 Glucose (Glutose) 22.5 gm Q15M PRN PO DECREASED GLUCOSE; Start 08/26/18 at 05:00 Dextrose (D50w Syringe) 25 ml Q15M PRN IV DECREASED GLUCOSE; Start 08/26/18 at 05:00 Dextrose (D50w Syringe) 50 ml Q15M PRN IV DECREASED GLUCOSE; Start 08/26/18 at 05:00 Glucagon (Glucagen) 1 mg Q15M PRN IM DECREASED GLUCOSE; Start 08/26/18 at 05:00 Glucose (Glutose) 15 gm Q15M PRN BUCCAL DECREASED GLUCOSE; Start 08/26/18 at 05:00 Folic Acid (Folic Acid) 1 mg DAILY PO Last administered on 09/07/18at 08:14; Admin Dose 1 MG; Start 08/26/18 at 09:00 Multivitamins Therapeutic (Theragran) 1 tab DAILY PO Last administered on 6/25/19at 08:14; Admin Dose 1 TAB; Start 08/26/18 at 09:00 Thiamine HCl (Vitamin B1) 100 mg DAILY PO Last administered on 09/07/18 08:14; Admin Dose 100 MG; Start 08/26/18 at 09:00 Insulin Aspart (Novolog Insulin Pen) NOVOLOG *MODERATE* ALGORITHM WITH MEALS BEDTIME SC Last administered on 09/06/18 17:29; Admin Dose 4 UNIT; Start 08/26/18 at 11:30 Famotidine (Pepcid) 20 mg DAILY PO Last administered on 09/07/18 08:14; Admin Dose 20 MG; Start 08/27/18 at 09:00 Simethicone (Mylicon) 80 mg Q8 PRN PO DISTENSION/GAS/BLOATING Last administered on 08/27/18 21:52; Admin Dose 80 MG; Start 08/27/18 at 21:00 Potassium Chloride (Klor-Con 20) 60 meq DAILY PO Last administered on 09/07/18 08:15; Admin Dose 60 MEQ; Start 08/29/18 at 09:00 Levofloxacin/ Dextrose 100 ml @ 100 mls/hr Q24H IVPB Last administered on 09/07/18 00:19; Admin Dose 100 MLS/HR; Start 08/30/18 at 01:30 Linagliptin (Tradjenta) 5 mg DAILY PO Last administered on 09/07/18 08:14; Admin Dose 5 MG; Start 09/02/18 at 13:00 Metformin HCl (Glucophage) 500 mg BID WITH MEALS PO Last administered on 09/07/18 17:15; Admin Dose 500 MG; Start 09/03/18 at 18:00 Empaglifozin (Jardiance) 25 mg DAILY@08 PO Last administered on 09/07/18 08:14; Admin Dose 25 MG; Start 09/04/18 at 10:00 Magnesium Oxide (Mag-Ox 400) 400 mg DAILY PO Last administered on 09/07/18 08:14; Admin Dose 400 MG; Start 09/06/18 at 09:00 Trazodone HCl (Desyrel) 25 mg HS PO Last administered on 09/07/18 00:19; Admin Dose 25 MG; Start 09/06/18 at 23:16 DELIO CESPEDES MD Sep 07, 2018 17:49
--- NOTE | 2018-09-07 18:17 | CONS ---
Assessment/Plan Assessment/Plan Hospital Course (Demo Recall) assessment/impression - severe sepsis (leukocytosis, tachycardia, RR>20 and lactic acid>4) due to bacteremia, UTI and peritonitis on admission, resolved - recurrent UTI and bacteremia with the same species of bacteria: concerning for deep seated infection/source, possibly prostate. Transthoracic echo on 08/30/2018 showed no e/o valvular vegetation - diarrhea, was on lactulose - recurent ascites - s/p paracentesis on 08/31/2018: WBC 2601, PMNs 54.1%, protein <2, LDH 416, culture negative peritonitis - hepatic encephalopathy on presentation. 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 Pt previously took pip/tazo (08/24/2018-08/29/2018). For prostatitis, I recommend total 6 weeks of antibiotic (including the dates of pip/tazo), from 08/24/2018 trough 10/05/2018 - side effects of levofloxacin were discussed with Pt - I recommended that Pt see her PMD for repeat CBC as outpatient management d/w Pt, his joyce and Dr. Mead Consultation Date/Type/Reason Admit Date/Time Aug 25, 2018 at 19:52 Initial Consult Date 08/29/18 Type of Consult ID Reason for Consultation UTI and bacteremia, possible prostatitis Requesting Provider: ALIS FINE Date/Time of Note DATE: 09/07/18 TIME: 18:15 24 HR Interval Summary Constitutional: improved; No febrile Detailed Summary Eyes: no complaints ENT: no complaints Respiratory: no complaints Cardiovascular: no complaints Gastrointestinal: no complaints Genitourinary: no complaints Musculoskeletal: no complaints Skin: no complaints Neurologic: no complaints Exam/Review of Systems Exam Vitals Vital Signs Date Temp Pulse Resp B/P (MAP) Pulse Ox O2 O2 Flow FiO2 Time Delivery Rate 09/07/18 112 17:13 09/07/18 98.0 18 108/73 98 15:18 (85) 09/07/18 Room Air 04:00 Intake and Output 09/06/18 09/06/18 09/07/18 1515:00 23:00 07:00 IntakeIntake Total 1010 ml 400 ml 250 ml OutputOutput Total 1580 ml 620 ml BalanceBalance -570 ml -220 ml 250 ml Constitutional: alert, oriented, well developed Psych: no complaints, nl mood/affect Head: normocephalic, atraumatic Eyes: nl conjunctiva, nl lids ENMT: nl external ears & nose, nl nasal mucosa & septum, mucosa pink and moist Respiratory: clear to auscultation, normal air movement Cardiovascular: regular rate and rhythm, nl pulses Gastrointestinal: soft, non-tender, distended (slightly); No firm, No tender Musculoskeletal: nl extremities to inspection Extremities: normal pulses 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: FILM NUMBERER II-XII intact, nl mental status, nl speech, nl strength Skin: nl turgor; No rash or lesions Results Result Diagram: 09/07/18 0503 09/07/18 0503 Results 24hrs Laboratory Tests Test 09/06/18 20:40 09/07/18 05:03 09/07/18 07:38 09/07/18 09:11 Bedside Glucose 88 93 White Blood Count 15.5 H Red Blood Count 2.87 L Hemoglobin 8.6 L Hematocrit 26.3 L Mean Corpuscular 91.6 Volume Mean Corpuscular 30.0 Hemoglobin Mean Corpuscular 32.7 Hemoglobin Concent Red Cell 16.0 H Distribution Width Platelet Count 196 Mean Platelet 9.3 Volume Immature 1.000 H Granulocytes % Neutrophils % 73.0 Lymphocytes % 15.5 Monocytes % 9.1 Eosinophils % 1.2 Basophils % 0.2 Nucleated Red 0.0 Blood Cells % Immature 0.150 H Granulocytes # Neutrophils # 11.3 H Lymphocytes # 2.4 Monocytes # 1.4 H Eosinophils # 0.2 Basophils # 0.0 Nucleated Red 0.0 Blood Cells # Sodium Level 132 L Potassium Level 3.3 L Chloride Level 106 Carbon Dioxide 18 L Level Anion Gap 8 Blood Urea 11 Nitrogen Creatinine 1.08 Est Glomerular > 60 Filtrat Rate mL/min Glucose Level 130 Calcium Level 7.4 L Lab Scanned Report REFERENCE LAB Test 09/07/18 11:46 09/07/18 12:09 09/07/18 17:15 Bedside Glucose 90 100 Urine Random 20.4 L Potassium Medications Medication Current Medications Ondansetron HCl (Zofran Inj) 4 mg Q6H PRN IV NAUSEA AND/OR VOMITING; Start 08/25/18 at 20:00 Albuterol (Proventil 0.083% (Neb)) 2.5 mg Q2H RESP THERAPY PRN NEB SHORTNESS OF BREATH; Start 08/25/18 at 20:00 Ipratropium [place] (Atrovent 0.02% (Neb)) 0.5 mg Q2H RESP THERAPY PRN NEB SHORTNESS OF BREATH; Start 08/25/18 at 20:00 Acetaminophen (Tylenol Liquid) 650 mg Q6H PRN PO PAIN LEVEL 1-3 OR FEVER Last administered on 08/30/18at 00:45; Admin Dose 650 MG; Start 08/25/18 at 20:00 Morphine Sulfate (morphine) 1 mg Q4H PRN IV PAIN LEVEL 7-10; Start 08/25/18 at 20:00 Potassium Chloride 50 ml @ 50 mls/hr K PROTOCOL PRN IVPB PENDING LAB VALUE Last administered on 08/26/18at 17:23; Admin Dose 50 MLS/HR; Start 08/26/18 at 04:30 Miscellaneous Information 1 ea NOTE XX ; Start 08/26/18 at 05:00 Glucose (Glutose) 15 gm Q15M PRN PO DECREASED GLUCOSE; Start 08/26/18 at 05:00 Glucose (Glutose) 22.5 gm Q15M PRN PO DECREASED GLUCOSE; Start 08/26/18 at 05:0 0 Dextrose (D50w Syringe) 25 ml Q15M PRN IV DECREASED GLUCOSE; Start 08/26/18 at 05:00 Dextrose (D50w Syringe) 50 ml Q15M PRN IV DECREASED GLUCOSE; Start 08/26/18 at 05:00 Glucagon (Glucagen) 1 mg Q15M PRN IM DECREASED GLUCOSE; Start 08/26/18 at 05:00 Glucose (Glutose) 15 gm Q15M PRN BUCCAL DECREASED GLUCOSE; Start 08/26/18 at 05:00 Folic Acid (Folic Acid) 1 mg DAILY PO Last administered on 09/07/18 08:14; Admin Dose 1 MG; Start 08/26/18 at 09:00 Multivitamins Therapeutic (Theragran) 1 tab DAILY PO Last administered on 09/07/18 08:14; Admin Dose 1 TAB; Start 08/26/18 at 09:00 Thiamine HCl (Vitamin B1) 100 mg DAILY PO Last administered on 09/07/18 08:14; Admin Dose 100 MG; Start 08/26/18 at 09:00 Insulin Aspart (Novolog Insulin Pen) NOVOLOG *MODERATE* ALGORITHM WITH MEALS BEDTIME SC Last administered on 09/06/18 17:29; Admin Dose 4 UNIT; Start 08/26/18 at 11:30 Famotidine (Pepcid) 20 mg DAILY PO Last administered on 09/07/18 08:14; Admin Dose 20 MG; Start 08/27/18 at 09:00 Simethicone (Mylicon) 80 mg Q8 PRN PO DISTENSION/GAS/BLOATING Last administered on 08/27/18 21:52; Admin Dose 80 MG; Start 08/27/18 at 21:00 Potassium Chloride (Klor-Con 20) 60 meq DAILY PO Last administered on 09/07/18 08:15; Admin Dose 60 MEQ; Start 08/29/18 at 09:00 Levofloxacin/ Dextrose 100 ml @ 100 mls/hr Q24H IVPB Last administered on 09/07/18 00:19; Admin Dose 100 MLS/HR; Start 08/30/18 at 01:30 Linagliptin (Tradjenta) 5 mg DAILY PO Last administered on 09/07/18 08:14; Admin Dose 5 MG; Start 09/02/18 at 13:00 Metformin HCl (Glucophage) 500 mg BID WITH MEALS PO Last administered on 09/07/18 17:15; Admin Dose 500 MG; Start 09/03/18 at 18:00 Empaglifozin (Jardiance) 25 mg DAILY@08 PO Last administered on 09/07/18 08:14; Admin Dose 25 MG; Start 09/04/18 at 10:00 Magnesium Oxide (Mag-Ox 400) 400 mg DAILY PO Last administered on 09/07/18 08:14; Admin Dose 400 MG; Start 09/06/18 at 09:00 Trazodone HCl (Desyrel) 25 mg HS PO Last administered on 09/07/18at 00:19; Admin Dose 25 MG; Start 09/06/18 at 23:16 ZAINAB WASHBURN M.D. Sep 07, 2018 18:17
--- NOTE | 2018-09-07 18:43 | DS ---
Date/Time of Note Date/Time of Note DATE: 09/07/18 TIME: 18:36 Discharge Summary Admission/Discharge Info Admit Date/Time Aug 25, 2018 at 19:52 Discharge Date/Time Sep 07, 2018 at 18:27 Discharge Diagnosis Newly diagnosed diabetes mellitus Prostatitis Patient Condition: Good Consults Dr. Rodriguez, infectious disease Dr. Lindo, nephrology Dr. Bailey, hematology Dr. Ramos, endocrinology Procedures None Hx of Present Illness Chief complaint: Abdominal pain, vomiting for the last 3 days Patient is a poor historian, he also does appear to be lethargic, the history was obtained from him as well as from the girlfriend at the bedside. This is a 38-year-old male with a past medical history of heavy alcohol use and early cirrhosis who presents to the emergency department complaining of abdominal pain and vomiting x3 days. Patient reports that he has been vomiting nonbilious for the last 3 days. He did have some abdominal pain as well. He does report painful urination. He does have a history of heavy alcohol use. He also smokes marijuana. He denies any chest pain or shortness of breath. His girlfriend does report that he appears to be confused. Allergies: NKDA Medications: See MAR Hospital Course The patient was admitted to ICU on DKA protocol. He has newly diagnosed diabetes. He was finally weaned onto subcutaneous insulin and at time of discharge is completely on oral medications (metformin, linagliptin, empagliflozin). Blood cultures and urine cultures both grew E Coli, hernandes-sensitive. Despite being on appropriate antibiotics his WBC continued to increase, even as his clinical status improved; eventually peaking in the 30s. Hematology was consulted, flow cytometry was done but no abnormal leukocytes. Per infectious disease, this may represent prostatitis. Will treat with levofloxacin for 6 weeks (40 days). He had persistently low potassium and magnesium despite aggressive replacement. He will be discharged with oral potassium and magnesium supplements. Home Meds Active Scripts Levofloxacin* (Levofloxacin*) 750 Mg Tablet, 750 MG PO DAILY for 30 Days, #30 TAB Prov:JONN SEAY MD 09/07/18 Metformin* (Glucophage*) 500 Mg Tab, 500 MG PO BID WITH MEALS, #90 TAB 2 Refills Prov:JONN SEAY MD 09/07/18 Linagliptin (TRADJENTA) 5 Mg Tablet, 5 MG PO DAILY, #90 TAB 1 Refill Prov:JONN SEAY MD 09/07/18 Empagliflozin (Jardiance) 10 Mg Tablet, 25 MG PO DAILY@08, #90 TAB 1 Refill Prov:JONN SEAY MD 09/07/18 Magnesium Oxide* (Mag-Oxide*) 400 Mg Tablet, 400 MG PO DAILY, #60 TAB 2 Refills Prov:JONN SEAY MD 09/07/18 Potassium Chloride* (K-Dur*) 20 Meq Tab.prt.sr, 60 MEQ PO DAILY, #90 TAB 2 Refills Prov:JONN SEAY MD 09/07/18 Reported Medications Ferrous Sulfate* (Ferrous Sulfate*) 325 Mg Tabec, 325 MG PO DAILY, TAB 08/25/18 Lorazepam* (Lorazepam*) 1 Mg Tablet, 1 MG PO Q12H PRN for ANXIETY for 15 Days, #30 08/25/18 Cholecalciferol* (Vitamin D*) 400 Unit Tablet, 800 UNIT PO DAILY, TAB 06/24/17 Follow-up Plan 1. Take all medications as prescribed. If you cannot get levofloxacin or metformin, return to the emergency room. 2. See your primary care doctor in 1-2 weeks. 3. Completely stop all alcohol. Any further alcohol will cause permanent liver damage. Primary Care Provider Care Physician No Primary Time spent on discharge: > 30 minutes Pending Labs Laboratory Tests Test 09/06/18 20:40 09/07/18 05:03 09/07/18 07:38 09/07/18 09:11 Bedside 88 93 Glucose mg/dL (70-220) mg/dL (70-220) White Blood 15.5 Count 10^3/ul (4.8-1 0.8) Red Blood 2.87 Count 10^6/ul (4.70- 6.10) Hemoglobin 8.6 g/dl (14.0-18. 0) Hematocrit 26.3 % (42.0-52.0) Mean 91.6 Corpuscular fl (82.0-101.0 Volume ) Mean 30.0 Corpuscular pg (29.0-33.0) Hemoglobin Mean 32.7 Corpuscular g/dl (32.0-37. Hemoglobin Conc 0) ent Red Cell 16.0 Distribution % (11.5-14.5) Width Platelet Count 196 10^3/UL (140-4 15) Mean Platelet 9.3 Volume fl (7.4-10.4) Immature 1.000 Granulocytes % % (0.001-0.429 ) Neutrophils % 73.0 % (39.0-77.0) Lymphocytes % 15.5 % (15.0-51.0) Monocytes % 9.1 % (0.0-11.0) Eosinophils % 1.2 % (0.0-7.0) Basophils % 0.2 % (0.0-2.0) Nucleated Red 0.0 Blood Cells % /100WBC (0.0-0 .0) Immature 0.150 Granulocytes # 10^3/ul (0.0-0 .031) Neutrophils # 11.3 10^3/ul (1.6-7 .5) Lymphocytes # 2.4 10^3/ul (0.8-2 .9) Monocytes # 1.4 10^3/ul (0.3-0 .9) Eosinophils # 0.2 10^3/ul (0.0-0 .5) Basophils # 0.0 10^3/ul (0.0-0 .1) Nucleated Red 0.0 Blood Cells # 10^3/ul (0.0-0 .0) Sodium Level 132 mmol/L (135-14 4) Potassium 3.3 Level mmol/L (3.5-5. 1) Chloride Level 106 mmol/L (97-110 ) Carbon Dioxide 18 Level mmol/L (21-31) Anion Gap 8 (5-13) Blood Urea 11 Nitrogen mg/dl (7-20) Creatinine 1.08 mg/dl (0.61-1. 24) Est Glomerular > 60 Filtrat mL/min (>60) Rate mL/min Glucose Level 130 mg/dl (70-220) Calcium Level 7.4 mg/dl (8.4-10. 2) Lab Scanned REFERENCE Report LAB [id number] Test 09/07/18 11:46 09/07/18 12:09 09/07/18 17:15 Bedside 90 100 Glucose mg/dL (70-220) mg/dL (70-220) Urine Random 20.4 Potassium mmol/L (25-125 ) JONN SEAY MD Sep 07, 2018 18:43
== END 2018-09-07 18:27 | disposition home or self-care (01) | DRG 871 ==
LOC: FTE 16:28 → ICU 19:52 → 6WM 22:15
PROVIDERS: ADMIT Family Medicine; ATTEND Hospitalist
PROC: 0W9G3ZZ Drainage of Peritoneal Cavity, Percutaneous Approach (ICD-10-PCS; principal; 2018-08-31)
DX: A41.9 Sepsis, unspecified organism (principal); J18.9 Pneumonia, unspecified organism; G93.41 Metabolic encephalopathy; N17.9 Acute kidney failure, unspecified; E87.2 Acidosis; N39.0 Urinary tract infection, site not specified; E87.1 Hypo-osmolality and hyponatremia; E86.0 Dehydration; R65.20 Severe sepsis without septic shock; B96.20 Unspecified Escherichia coli [E. coli] as the cause of diseases classified elsewhere; D63.8 Anemia in other chronic diseases classified elsewhere; D69.59 Other secondary thrombocytopenia; E11.65 Type 2 diabetes mellitus with hyperglycemia; E83.42 Hypomagnesemia; E87.6 Hypokalemia; K72.90 Hepatic failure, unspecified without coma; K70.11 Alcoholic hepatitis with ascites; K70.31 Alcoholic cirrhosis of liver with ascites
CPT/HCPCS: 36415; 36600; 70450; 71045; 76705; 80048; 80053; 80307; 81001; 81003; 82043; 82105; 82140; 82803; 82962; 83036; 83605; 83615; 83690; 83735; 83935; 84100; 84133; 84145; 84153; 84154; 84155; 84157; 84300; 84484; 84681; 85025; 85610; 85730; 86337; 86341; 86703; 87070; 87081; 87086; 87102; 87116; 88104; 88305; 89051; 93005; 93306; 96374; J1815; J1956; J2543; J3370; J3475; J3480; J7030; J7040

== ENCOUNTER 2018-09-16 19:17 | Inpatient (IN) | payer MEDICAID ==
[~2018-09-16] VITALS: Ht 167.6 cm; Wt 66.7 kg
[~2018-09-16 19:17] MED LIST changes: +EMPA10TA PO; +FER325 PO; +LEVO750T8 PO; +LINA5TAB PO; +LORA1TAB PO; +MAGN400T27 PO; +METF-849 PO; +POTA20TA15 PO
[2018-09-16] MEDS ORDERED: SOD CHLORIDE 0.9% 500 ML IV STA (19:54)
--- NOTE | 2018-09-16 20:10 | ERD ---
ER Documentation Chief Complaint Chief Complaint weakness x 2 days HPI 38-year-old male with a history of diabetes and cirrhosis presenting for generalized weakness over the past 2 days. He has had decreased appetite and is not eating or drinking well per his family member at bedside. He denies any fevers, chills, nausea, vomiting, diarrhea, constipation, melena or hematochezia. He states that he has noticed abdominal distention and feels that he may need a paracentesis. His last paracentesis was done a few weeks ago. He denies any chest pain, shortness of breath, focal weakness or numbness. ROS All systems reviewed and are negative except as per history of present illness. Medications Home Meds Active Scripts Levofloxacin* (Levofloxacin*) 750 Mg Tablet, 750 MG PO DAILY for 30 Days, #30 TAB Prov:JONN SEAY MD 09/07/18 Metformin* (Glucophage*) 500 Mg Tab, 500 MG PO BID WITH MEALS, #90 TAB 2 Refills Prov:JONN SEAY MD 09/07/18 Linagliptin (TRADJENTA) 5 Mg Tablet, 5 MG PO DAILY, #90 TAB 1 Refill Prov:JONN SEAY MD 09/07/18 Empagliflozin (Jardiance) 10 Mg Tablet, 25 MG PO DAILY@08, #90 TAB 1 Refill Prov:JONN SEAY MD 09/07/18 Magnesium Oxide* (Mag-Oxide*) 400 Mg Tablet, 400 MG PO DAILY, #60 TAB 2 Refills Prov:JONN SEAY MD 09/07/18 Potassium Chloride* (K-Dur*) 20 Meq Tab.prt.sr, 60 MEQ PO DAILY, #90 TAB 2 Refills Prov:JONN SEAY MD 09/07/18 Reported Medications Ferrous Sulfate* (Ferrous Sulfate*) 325 Mg Tabec, 325 MG PO DAILY, TAB 08/25/18 Lorazepam* (Lorazepam*) 1 Mg Tablet, 1 MG PO Q12H PRN for ANXIETY for 15 Days, #30 08/25/18 Cholecalciferol* (Vitamin D*) 400 Unit Tablet, 800 UNIT PO DAILY, TAB 06/24/17 Allergies Allergies: Coded Allergies: No Known Allergy (Unverified , 08/25/18) PMhx/Soc History of Surgery: Yes (Left hand surgery 2017) Anesthesia Reaction: No Hx 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 Disorder: No Hx Respiratory Disorders: No Hx Cardiac Disorders: No Hx Psychiatric Problems: No Hx Miscellaneous Medical Probl: Yes (Diabetes, cirrhosis) Hx Alcohol Use: Yes (ETOH abuse) Hx Substance Use: Yes ('quit years ago') Hx Tobacco Use: No Smoking Status: Never smoker FmHx Family History: No coronary disease Physical Exam Vitals Vital Signs Date Temp Pulse Resp B/P (MAP) Pulse Ox O2 O2 Flow FiO2 Time Delivery Rate 09/16/18 97.3 115 16 93/72 (79) 100 19:35 09/16/18 97.3 120 16 100/76 100 19:22 (84) Physical Exam Const: No acute distress. Chronically ill-appearing but nontoxic Head: Atraumatic Eyes: Normal Conjunctiva ENT: Dry mucous membranes. Normal External Ears, Nose and Mouth. Neck: Full range of motion. No meningismus. Resp: Clear to auscultation bilaterally Cardio: Regular rate and rhythm, no murmurs Abd: Soft, distended with ascites. Nontender to palpation. Normal bowel sounds Skin: No petechiae or rashes Back: No midline or flank tenderness Ext: No cyanosis, or edema Neur: Awake and alert Psych: Normal Mood and Affect Result Diagram: 09/16/18201409/16/182014 Results 24 hrs Laboratory Tests Test 09/16/18 20:15 White Blood Count 9.3 10^3/ul Red Blood Count 3.11 10^6/ul Hemoglobin 9.3 g/dl Hematocrit 27.2 % Mean Corpuscular Volume 87.5 fl Mean Corpuscular Hemoglobin 29.9 pg Mean Corpuscular Hemoglobin Concent 34.2 g/dl Red Cell Distribution Width 15.1 % Platelet Count 150 10^3/UL Mean Platelet Volume 8.5 fl Immature Granulocytes % 0.400 % Neutrophils % 60.9 % Lymphocytes % 20.0 % Monocytes % 15.6 % Eosinophils % 2.3 % Basophils % 0.8 % Nucleated Red Blood Cells % 0.0 /100WBC Immature Granulocytes # 0.040 10^3/ul Neutrophils # 5.7 10^3/ul Lymphocytes # 1.9 10^3/ul Monocytes # 1.5 10^3/ul Eosinophils # 0.2 10^3/ul Basophils # 0.1 10^3/ul Nucleated Red Blood Cells # 0.0 10^3/ul Prothrombin Time 17.7 Sec Prothrombin Time Ratio 1.4 INR International Normalized Ratio 1.45 Activated Partial Thromboplast Time 60.0 Sec Sodium Level 131 mmol/L Potassium Level 2.9 mmol/L Chloride Level 100 mmol/L Carbon Dioxide Level 20 mmol/L Anion Gap 11 Blood Urea Nitrogen 17 mg/dl Creatinine 2.73 mg/dl Est Glomerular Filtrat Rate mL/min 26 mL/min Glucose Level 53 mg/dl Calcium Level 7.6 mg/dl Total Bilirubin 0.9 mg/dl Direct Bilirubin 0.00 mg/dl Indirect Bilirubin 0.9 mg/dl Aspartate Amino Transf (AST/SGOT) 42 IU/L Alanine Aminotransferase (ALT/SGPT) 15 IU/L Alkaline Phosphatase 227 IU/L Troponin I < 0.012 ng/ml Total Protein 7.1 g/dl Albumin 2.4 g/dl Globulin 4.70 g/dl Albumin/Globulin Ratio 0.51 Lipase 112 U/L Current Medications Medications Dose Sig/Shaila Start Time Status Last (Trade) Ordered Route PRN Stop Time Admin Dose Reason Admin Sodium 500 ml @ Q1H STAT 09/16/18 DC 09/16/18 Chloride 500 mls/hr IV 19:54 09/16/18 21:40 20:53 Potassium 40 meq ONCE STAT 09/16/18 DC 09/16/18 Chloride PO 21:37 09/16/18 21:52 (Klor-Con 20) 21:38 Magnesium 100 ml @ ONCE ONCE 09/16/18 DC 09/16/18 Sulfate/ 100 mls/hr IVPB 22:00 09/16/18 21:52 Dextrose 22:59 Ondansetron 4 mg BRIDGE ORDER 09/17/18 HCl (Zofran PRN IV 00:00 09/17/18 Inj) NAUSEA/VOMITI 23:59 NG 650 mg ER BRIDGE 09/17/18 Acetaminophen PRN PO 00:00 09/17/18 (Tylenol .MILD PAIN 23:59 Tab) 1-3 OR TEMP Procedures/MDM EMERGENT LABS AND DIAGNOSTIC STUDIES: Lab Results above were reviewed and interpreted by me. CBC: Anemia, likely secondary to chronic disease, stable when compared to previous. No evidence of infection CMP: Mild hyponatremia, hypokalemia, evidence of acute renal failure with elevated creatinine and mild acidosis. Hypoglycemic. Troponin within normal limits, not indicative of cardiac ischemia INR elevated, consistent with cirrhosis 12-lead EKG was interpreted by Natalie Medina MD: Sinus tachycardia with ventricular rate of 109 beats per minute Normal axis Normal intervals No acute ST or T wave changes suggestive of acute ischemia or STEMI. Radiology Results as interpreted by Radiology below were reviewed by Kya Medina MD: Chest x-ray shows no significant abnormalities Initial Nursing notes reviewed. Previous Medical Records requested via the Electronic Health Record. EMERGENCY DEPARTMENT COURSE / MEDICAL DECISION MAKING: Patient is presenting with generalized weakness with no focal deficits on exam. Vitals are unremarkable and he is afebrile with no signs of infection. However labs are notable for hypokalemia, which may be the reason for his weakness. He is most likely also dehydrated given his poor p.o. intake. Labs were notable for elevated creatinine which is new for the patient, consistent with acute renal insufficiency. He also had hypoglycemia which was treated with food. He was given IV potassium and magnesium supplementation. Patient will require admission for further stabilization and is not stable for discharge at this time. Critical Care Time: 35 minutes Treatments/Evaluations: Close monitoring and treatment of unstable vital signs, cardiorespiratory, and neurologic status, while maintaining tight balance of fluid, respiratory, and cardiac interventions. This time includes discussing the case with the patient and the patients family. This time does not include all procedures stated elsewhere in this record. This time also includes reviewing old records, labs and radiological studies. This time includes examining and re-examining the patient. Additionally, this time also includes arranging care with admitting and consulting physicians. Accepting Care Team: Current data and ongoing care discussed. Time: Time of admission Primary Provider: Dr.Amde Infante Diagnosis: Primary Impression: Hypokalemia Additional Impressions: Acute renal failure Acute renal failure type: unspecified Qualified Codes: N17.9 - Acute kidney failure, unspecified Hyponatremia Ascites Ascites type: due to alcoholic cirrhosis Qualified Codes: K70.31 - Alcoholic cirrhosis of liver with ascites Chronic anemia Generalized weakness Condition: Serious NICK MEDINA MD Sep 16, 2018 20:09
[2018-09-16] MEDS ORDERED: POTASSIUM CHLORIDE (SR) 20 MEQ TAB PO STA (21:37)
[2018-09-16] MEDS ORDERED: MAGNESIUM SULFATE 1 GM/D5W 100 ML IVPB ONE (22:00)
[2018-09-17] MEDS ORDERED: ACETAMINOPHEN 325 MG TAB PO PRN
[2018-09-17] MEDS ORDERED: ALBUTEROL/IPRATROPIUM (NEB) 3 ML AMP HHN PRN (03:30)
[2018-09-17] MEDS ORDERED: ONDANSETRON 4 MG INJ IV PRN ×2 (03:30)
[2018-09-17] MEDS ORDERED: NACL 0.9% 3 ML SYG IV SCH (03:30)
[2018-09-17] MEDS ORDERED: LORAZEPAM 1 MG TAB PO PRN (03:30)
[2018-09-17] MEDS ORDERED: POTASSIUM CHLORIDE 100 ML IVPB ONE (03:30)
--- NOTE | 2018-09-17 06:16 | HP ---
Date/Time of Note Date/Time of Note DATE: 09/17/18 TIME: 06:06 Assessment/Plan VTE Prophylaxis Pharmacological prophylaxis: heparin Lines/Catheters IV Catheter Type (from Nrs): Saline Lock Assessment/Plan Assessment/Plan 1. Decompensated alcoholic liver cirrhosis with ascites, requiring paracentesis (last 08/26/2018) -Ordered ultrasound-guided paracentesis 2. Acute renal insufficiency -will give albumin -Nephrology consult 3. Hypokalemia: Replete 4. Hypoglycemia -Patient was diagnosed with diabetes and was managed for DKA last month -will give dextrose -Monitor closely Result Diagram: 09/17/18 0520 09/16/182014 Results 24hrs Laboratory Tests Test 09/16/18 20:15 09/17/18 02:13 09/17/18 03:20 09/17/18 05:19 White Blood Count 9.3 # Red Blood Count 3.11 L Hemoglobin 9.3 L Hematocrit 27.2 L Mean Corpuscular Volume 87.5 Mean Corpuscular 29.9 Hemoglobin Mean Corpuscular 34.2 Hemoglobin Concent Red Cell Distribution 15.1 H Width Platelet Count 150 # Mean Platelet Volume 8.5 Immature Granulocytes % 0.400 Neutrophils % 60.9 Lymphocytes % 20.0 Monocytes % 15.6 H Eosinophils % 2.3 Basophils % 0.8 Nucleated Red Blood 0.0 Cells % Immature Granulocytes # 0.040 H Neutrophils # 5.7 Lymphocytes # 1.9 Monocytes # 1.5 H Eosinophils # 0.2 Basophils # 0.1 Nucleated Red Blood 0.0 Cells # Prothrombin Time 17.7 H Prothrombin Time Ratio 1.4 INR International 1.45 Normalized Ratio Activated 60.0 H Partial Thromboplast Time Sodium Level 131 L Potassium Level 2.9 *L Chloride Level 100 Carbon Dioxide Level 20 L Anion Gap 11 Blood Urea Nitrogen 17 Creatinine 2.73 H Est Glomerular Filtrat 26 L Rate mL/min Glucose Level 53 L Calcium Level 7.6 L Total Bilirubin 0.9 Direct Bilirubin 0.00 Indirect Bilirubin 0.9 Aspartate Amino 42 Transf (AST/SGOT) Alanine 15 Aminotransferase (ALT/SG PT) Alkaline Phosphatase 227 H Troponin I < 0.012 Total Protein 7.1 Albumin 2.4 L Globulin 4.70 H Albumin/Globulin Ratio 0.51 Lipase 112 Bedside Glucose 56 L 73 57 L Test 09/17/18 05:20 09/17/18 05:46 White Blood Count 9.6 Red Blood Count 3.13 L Hemoglobin 9.4 L Hematocrit 27.6 L Mean Corpuscular Volume 88.2 Mean Corpuscular 30.0 Hemoglobin Mean Corpuscular 34.1 Hemoglobin Concent Red Cell Distribution 15.4 H Width Platelet Count 155 Mean Platelet Volume 8.7 Immature Granulocytes % 0.600 H Neutrophils % 63.3 Lymphocytes % 20.5 Monocytes % 12.7 H Eosinophils % 2.2 Basophils % 0.7 Nucleated Red Blood 0.0 Cells % Immature Granulocytes # 0.060 H Neutrophils # 6.1 Lymphocytes # 2.0 Monocytes # 1.2 H Eosinophils # 0.2 Basophils # 0.1 Nucleated Red Blood 0.0 Cells # Bedside Glucose 62 L HPI/ROS Admit Date/Time Admit Date/Time Hx of Present Illness Patient is a 38-year-old male with a history of alcohol abuse, decompensated alcoholic liver cirrhosis with ascites requiring paracentesis, recently diagnosed diabetes and DKA, encephalopathy, recent sepsis with E. coli UTI and bacteremia. Patient presented to ER complaining of abdominal pain/distention and generalized weakness. Patient was just discharged from here about 10 days ago. At that time he was treated for sepsis, encephalopathy and was newly diagnosed with diabetes and was treated for DKA. He also underwent paracentesis on 08/26/2018 with removal of 2.1 L of fluid. When presented to ER, he was tachycardic with a heart rate of 120. Labs shows a potassium of 2.9, sodium 131. During last hospitalization potassium and magnesium were aggressively replaced and the patient was discharged with 60 meq of potassium to be taken daily. He also presented with acute renal insufficiency with creatinine of 2.7. Patient also hypoglycemic with initial blood glucose of 53. PMH/Family/Social Past Medical History Medical History: other Medications Current Medications Ondansetron HCl (Zofran Inj) 4 mg BRIDGE ORDER PRN IV NAUSEA/VOMITING; Start 09/17/18 at 00:00; Stop 09/17/18 at 23:59 Acetaminophen (Tylenol Tab) 650 mg ER BRIDGE PRN PO .MILD PAIN 1-3 OR TEMP; Start 09/17/18 at 00:00; Stop 09/17/18 at 23:59 IV Flush (NS 3 ml) 3 ml PER PROTOCOL IV ; Start 09/17/18 at 03:30 Ondansetron HCl (Zofran Inj) 4 mg Q6H PRN IV NAUSEA/VOMITING; Start 09/17/18 at 03:30 Acetaminophen (Tylenol Tab) 650 mg Q6H PRN PO .PAIN 1-3 OR TEMP; Start 09/17/18 at 03:30 Famotidine (Pepcid Iv) 20 mg DAILY IV ; Start 09/17/18 at 09:00 Albuterol/ Ipratropium (Duoneb) 3 ml Q2H RESP THERAPY PRN HHN SHORTNESS OF BREATH; Start 09/17/18 at 03:30 Ferrous Sulfate (Ferrous Sulfate (Ec)) 325 mg DAILY PO ; Start 09/17/18 at 09:00 Lorazepam (Ativan) 1 mg Q12H PRN PO ANXIETY; Start 09/17/18 at 03:30 Magnesium Oxide (Mag-Ox 400) 400 mg DAILY PO ; Start 09/17/18 at 09:00 Potassium Chloride (Klor-Con 20) 60 meq DAILY PO ; Start 09/17/18 at 09:00 Coded Allergies: No Known Allergy (Unverified , 08/25/18) Past Surgical History Past Surgical Hx: other Family History Significant Family History: cancer, diabetes Social History Smoking Status: Never smoker Exam/Review of Systems Vital Signs Vitals Vital Signs Date Temp Pulse Resp B/P (MAP) Pulse Ox O2 O2 Flow FiO2 Time Delivery Rate 09/17/18 109 16 98/76 (83) 98 Room Air 05:08 09/16/18 97.3 19:35 Exam Exam Past Surgical Hx: other Family History Significant Family History: no pertinent family hx Social History Alcohol Use: none Smoking Status: Never smoker Drug Use: none Exam Constitutional: other (No acute distress) Head: normocephalic, atraumatic Eyes: EOMI, PERRL Respiratory: clear to auscultation, normal air movement Cardiovascular: regular rate and rhythm Gastrointestinal: soft Extremities: normal pulses CIRO MEI MD Sep 17, 2018 06:16
[2018-09-17] MEDS ORDERED: DEXTROSE 50% 50 ML SYRINGE IV ONE (06:30)
[2018-09-17] MEDS ORDERED: LIDOCAINE 1% (MPF) 5 ML VIAL ONE (08:48)
[2018-09-17] MEDS: ALBUMIN HUMAN 25% 100 ML IV SCH ×3 (09:01→21:55)
[2018-09-17] MEDS: POTASSIUM CHLORIDE (SR) 20 MEQ TAB PO SCH (09:57)
[2018-09-17] MEDS: FAMOTIDINE 20 MG INJ IV SCH (09:58)
[2018-09-17] MEDS: FERROUS SULFATE (EC) 325 MG TAB PO SCH (09:58)
[2018-09-17] MEDS: MAGNESIUM OXIDE 400 MG TAB PO SCH (09:58)
--- NOTE | 2018-09-17 11:38 | CONS ---
DATE OF ADMISSION: 09/16/2018 DATE OF CONSULTATION: 09/17/2018 TYPE OF CONSULTATION: Nephrology. REASON FOR CONSULTATION: Acute kidney injury. PHYSICIAN REQUESTING CONSULT: Dr. Matt Najera HISTORY OF PRESENT ILLNESS: This is a 38-year-old male with a past medical history of ETOH, cirrhosi s, history of alcohol abuse, history of diabetes, history of encephalopathy. The patient has history of sepsis and also a complex abdominal pain, distention and weakness. The patient was recentl y discharged from [facility] approximately 10 days ago. During the previous hospitalizati on, the patient was treated for sepsis, encephalopathy and acute kidney injury. The patient now pres ents with generalized weakness. On admission, the patient was tachycardic, heart rate 190. Sodium 1 31, potassium 2.9. The patient has had a creatinine of 2.7 in the emergency room, the patient was st arted on IV fluids. In terms of patient's renal history, the patient has had a baseline creatinine around 1.1 mg/dL. The patient had previous episodes of acute kidney injury which is improved with supportive care and IV f luids. Currently, patient denies any hemoptysis, hematemesis or hematochezia. Denies any frothy uri ne. PAST MEDICAL HISTORY: History of cirrhosis, history of hypomagnesemia and hypokalemia, history of di abetes, history of encephalopathy. PAST SURGICAL HISTORY: Status post paracentesis. FAMILY HISTORY: No family history of kidney disease. SOCIAL HISTORY: Previous history of alcohol use. MEDICATIONS: The patient's medications have been reviewed. REVIEW OF SYSTEMS: A 14-point review of systems conducted. Pertinent positives stated in HPI, other medrano negative. PHYSICAL EXAMINATION: VITAL SIGNS: Blood pressure 88/65, respiration 14, pulse 104, temperature 97.9. HEENT: Head is normocephalic. NECK: Supple. HEART: Regular rate. LUNGS: Show diminished breath sounds at the base. ABDOMEN: Soft, positive tenderness to palpation. EXTREMITIES: Negative for clubbing, cyanosis, no edema. DERMATOLOGIC: No rashes. MUSCULOSKELETAL: No joint effusion. NEUROLOGIC: No focal deficits. LABORATORY DATA: Has been reviewed. IMAGING STUDIES: Has been reviewed. ASSESSMENT AND PLAN: This is a 38-year-old male who presents with problem: 1. Nonoliguric acute kidney injury with previous baseline creatinine 1.0 mg/dL. Etiology of acute k idney injury is unclear, possibly due to hemodynamics. The possibility of hepatorenal syndrome in th e setting of cirrhosis is a consideration; however, this is a diagnosis of exclusion. Plan at this p oint is to do a full evaluation. Check UA with microanalysis. Check urine electrolytes. We will co ntinue patient on volume expansion with IV albumin and monitor closely. 2. Mild hyponatremia secondary to acute kidney injury causing decreased free water urinary excretion . Continue to monitor. 3. Anemia. Monitor hemoglobin and hematocrit levels. 4. Mineral bone disorder, monitor calcium and phosphorus levels. 5. Decompensated cirrhosis. The patient has noted ascites on exam. Pending paracentesis. Continue medical management, defer diuretic therapy at this time. 6. Hypokalemia. Continue to monitor and replete. 7. Diabetes. Continue current insulin regimen. Monitor. Thank you, Dr. Najera, for this interesting consult. It will be a pleasure to follow patient with you throughout the hospital course. Dictated By: EMILY VALDEZ/GERMAINE Conf#: [id number] DID#: [id number]
[2018-09-17 12:49] VITALS: BP 92/59; PULSE 75; RESP 19
[2018-09-17 12:57] VITALS: Ht 167.6 cm; Wt 66.7 kg
--- NOTE | 2018-09-17 14:04 | PN ---
Date/Time of Note Date/Time of Note DATE: 09/17/18 TIME: 14:01 Assessment/Plan VTE Prophylaxis SCD contraindicated: low risk/ambulating Pharmacological prophylaxis: NA/contraindicated Pharm contraindication: low risk/ambulating Lines/Catheters IV Catheter Type (from Nrsg): [place] Assessment/Plan Hospital Course Assessment and plan 1. Decompensated ascites status post paracentesis. Stable follow-up on cultures. 2. Cirrhosis, alcohol associated. Follow-up with GI 3. Chronic alcoholism, last drink? 4. Chronic liver disease sequela: Splenomegaly, portal hypertension, ascites 5. Major depression chronic 6. Anemia chronic stable 7. Acute renal failure on CKD, stable hydrate elevated 8. Failure to thrive. History of being homeless. May need social service assistance 9. History of urinary associated sepsis 3 months ago 10. History of DKA 11. Chronic type 2 diabetes 12. History of left wrist fracture surgery Subjective 1 to 2 days of abdominal discomfort ascites. Denies any fever GI bleed. Last drink? Awake alert oriented to year or month. Objective: Vital signs stable Physical exam No pallor icterus adenopathy Regular no murmur gallop Clear Bowel sounds present nontender mild distended no rigidity rebound guarding No edema Result Diagram: 09/17/18 0520 09/17/18 0520 Results 24hrs Laboratory Tests Test 09/16/18 20:15 09/17/18 02:13 09/17/18 03:20 09/17/18 05:19 White Blood Count 9.3 # Red Blood Count 3.11 L Hemoglobin 9.3 L Hematocrit 27.2 L Mean Corpuscular Volume 87.5 Mean Corpuscular 29.9 Hemoglobin Mean Corpuscular 34.2 Hemoglobin Concent Red Cell Distribution 15.1 H Width Platelet Count 150 # Mean Platelet Volume 8.5 Immature Granulocytes % 0.400 Neutrophils % 60.9 Lymphocytes % 20.0 Monocytes % 15.6 H Eosinophils % 2.3 Basophils % 0.8 Nucleated Red Blood 0.0 Cells % Immature Granulocytes # 0.040 H Neutrophils # 5.7 Lymphocytes # 1.9 Monocytes # 1.5 H Eosinophils # 0.2 Basophils # 0.1 Nucleated Red Blood 0.0 Cells # Prothrombin Time 17.7 H Prothrombin Time Ratio 1.4 INR International 1.45 Normalized Ratio Activated 60.0 H Partial Thromboplast Time Sodium Level 131 L Potassium Level 2.9 *L Chloride Level 100 Carbon Dioxide Level 20 L Anion Gap 11 Blood Urea Nitrogen 17 Creatinine 2.73 H Est Glomerular Filtrat 26 L Rate mL/min Glucose Level 53 L Calcium Level 7.6 L Total Bilirubin 0.9 Direct Bilirubin 0.00 Indirect Bilirubin 0.9 Aspartate Amino 42 Transf (AST/SGOT) Alanine 15 Aminotransferase (ALT/SG PT) Alkaline Phosphatase 227 H Troponin I < 0.012 Total Protein 7.1 Albumin 2.4 L Globulin 4.70 H Albumin/Globulin Ratio 0.51 Lipase 112 Bedside Glucose 56 L 73 57 L Test 09/17/18 05:20 09/17/18 05:46 09/17/18 06:57 09/17/18 07:35 White Blood Count 9.6 Red Blood Count 3.13 L Hemoglobin 9.4 L Hematocrit 27.6 L Mean Corpuscular Volume 88.2 Mean Corpuscular 30.0 Hemoglobin Mean Corpuscular 34.1 Hemoglobin Concent Red Cell Distribution 15.4 H Width Platelet Count 155 Mean Platelet Volume 8.7 Immature Granulocytes % 0.600 H Neutrophils % 63.3 Lymphocytes % 20.5 Monocytes % 12.7 H Eosinophils % 2.2 Basophils % 0.7 Nucleated Red Blood 0.0 Cells % Immature Granulocytes # 0.060 H Neutrophils # 6.1 Lymphocytes # 2.0 Monocytes # 1.2 H Eosinophils # 0.2 Basophils # 0.1 Nucleated Red Blood 0.0 Cells # Sodium Level 133 L Potassium Level 3.8 Chloride Level 101 Carbon Dioxide Level 23 Anion Gap 9 Blood Urea Nitrogen 16 Creatinine 2.44 H Est Glomerular Filtrat 30 L Rate mL/min Glucose Level 54 L Calcium Level 7.9 L Phosphorus Level 4.7 Magnesium Level 2.0 Total Bilirubin 0.9 Direct Bilirubin 0.00 Indirect Bilirubin 0.9 Aspartate Amino 42 Transf (AST/SGOT) Alanine 17 Aminotransferase (ALT/SG PT) Alkaline Phosphatase 224 H Total Protein 7.1 Albumin 2.4 L Globulin 4.70 H Albumin/Globulin Ratio 0.51 Bedside Glucose 62 L 87 180 Test 09/17/18 12:21 Urine Color YELLOW Urine Clarity CLEAR Urine pH 5.0 Urine Specific [place] 1.009 Urine Ketones NEGATIVE Urine Nitrite NEGATIVE Urine Bilirubin NEGATIVE Urine Urobilinogen NEGATIVE Urine Leukocyte Esterase TRACE A Urine Microscopic RBC 1 Urine Microscopic WBC 12 H Urine Bacteria FEW A Urine Hemoglobin NEGATIVE Urine Random Creatinine 68.98 Urine Random Sodium < 13 L Urine Glucose 2+ H Urine Total Protein 22.0 H Exam/Review of Systems Exam Vitals Vital Signs Date Temp Pulse Resp B/P (MAP) Pulse Ox O2 O2 Flow FiO2 Time Delivery Rate 09/17/18 100.2 75 19 92/59 (70) 91 12:49 09/17/18 Room Air 12:31 Intake and Output 09/16/18 09/16/18 09/17/18 1515:00 23:00 07:00 IntakeIntake Total 100 ml BalanceBalance 100 ml Results Results 24hrs Laboratory Tests Test 09/16/18 20:15 09/17/18 02:13 09/17/18 03:20 09/17/18 05:19 White Blood Count 9.3 # Red Blood Count 3.11 L Hemoglobin 9.3 L Hematocrit 27.2 L Mean Corpuscular Volume 87.5 Mean Corpuscular 29.9 Hemoglobin Mean Corpuscular 34.2 Hemoglobin Concent Red Cell Distribution 15.1 H Width Platelet Count 150 # Mean Platelet Volume 8.5 Immature Granulocytes % 0.400 Neutrophils % 60.9 Lymphocytes % 20.0 Monocytes % 15.6 H Eosinophils % 2.3 Basophils % 0.8 Nucleated Red Blood 0.0 Cells % Immature Granulocytes # 0.040 H Neutrophils # 5.7 Lymphocytes # 1.9 Monocytes # 1.5 H Eosinophils # 0.2 Basophils # 0.1 Nucleated Red Blood 0.0 Cells # Prothrombin Time 17.7 H Prothrombin Time Ratio 1.4 INR International 1.45 Normalized Ratio Activated 60.0 H Partial Thromboplast Time Sodium Level 131 L Potassium Level 2.9 *L Chloride Level 100 Carbon Dioxide Level 20 L Anion Gap 11 Blood Urea Nitrogen 17 Creatinine 2.73 H Est Glomerular Filtrat 26 L Rate mL/min Glucose Level 53 L Calcium Level 7.6 L Total Bilirubin 0.9 Direct Bilirubin 0.00 Indirect Bilirubin 0.9 Aspartate Amino 42 Transf (AST/SGOT) Alanine 15 Aminotransferase (ALT/SG PT) Alkaline Phosphatase 227 H Troponin I < 0.012 Total Protein 7.1 Albumin 2.4 L Globulin 4.70 H Albumin/Globulin Ratio 0.51 Lipase 112 Bedside Glucose 56 L 73 57 L Test 09/17/18 05:20 09/17/18 05:46 09/17/18 06:57 09/17/18 07:35 White Blood Count 9.6 Red Blood Count 3.13 L Hemoglobin 9.4 L Hematocrit 27.6 L Mean Corpuscular Volume 88.2 Mean Corpuscular 30.0 Hemoglobin Mean Corpuscular 34.1 Hemoglobin Concent Red Cell Distribution 15.4 H Width Platelet Count 155 Mean Platelet Volume 8.7 Immature Granulocytes % 0.600 H Neutrophils % 63.3 Lymphocytes % 20.5 Monocytes % 12.7 H Eosinophils % 2.2 Basophils % 0.7 Nucleated Red Blood 0.0 Cells % Immature Granulocytes # 0.060 H Neutrophils # 6.1 Lymphocytes # 2.0 Monocytes # 1.2 H Eosinophils # 0.2 Basophils # 0.1 Nucleated Red Blood 0.0 Cells # Sodium Level 133 L Potassium Level 3.8 Chloride Level 101 Carbon Dioxide Level 23 Anion Gap 9 Blood Urea Nitrogen 16 Creatinine 2.44 H Est Glomerular Filtrat 30 L Rate mL/min Glucose Level 54 L Calcium Level 7.9 L Phosphorus Level 4.7 Magnesium Level 2.0 Total Bilirubin 0.9 Direct Bilirubin 0.00 Indirect Bilirubin 0.9 Aspartate Amino 42 Transf (AST/SGOT) Alanine 17 Aminotransferase (ALT/SG PT) Alkaline Phosphatase 224 H Total Protein 7.1 Albumin 2.4 L Globulin 4.70 H Albumin/Globulin Ratio 0.51 Bedside Glucose 62 L 87 180 Test 09/17/18 12:21 Urine Color YELLOW Urine Clarity CLEAR Urine pH 5.0 Urine Specific [place] 1.009 Urine Ketones NEGATIVE Urine Nitrite NEGATIVE Urine Bilirubin NEGATIVE Urine Urobilinogen NEGATIVE Urine Leukocyte Esterase TRACE A Urine Microscopic RBC 1 Urine Microscopic WBC 12 H Urine Bacteria FEW A Urine Hemoglobin NEGATIVE Urine Random Creatinine 68.98 Urine Random Sodium < 13 L Urine Glucose 2+ H Urine Total Protein 22.0 H Medications Medication Current Medications Ondansetron HCl (Zofran Inj) 4 mg BRIDGE ORDER PRN IV NAUSEA/VOMITING; Start 09/17/18 at 00:00; Stop 09/17/18 at 23:59 Acetaminophen (Tylenol Tab) 650 mg ER BRIDGE PRN PO .MILD PAIN 1-3 OR TEMP; Start 09/17/18 at 00:00; Stop 09/17/18 at 23:59 IV Flush (NS 3 ml) 3 ml PER PROTOCOL IV ; Start 09/17/18 at 03:30 Ondansetron HCl (Zofran Inj) 4 mg Q6H PRN IV NAUSEA/VOMITING; Start 09/17/18 at 03:30 Acetaminophen (Tylenol Tab) 650 mg Q6H PRN PO .PAIN 1-3 OR TEMP; Start 09/17/18 at 03:30 Famotidine (Pepcid Iv) 20 mg DAILY IV Last administered on 09/17/18at 09:58; Admin Dose 20 MG; Start 09/17/18 at 09:00 Albuterol/ Ipratropium (Duoneb) 3 ml Q2H RESP THERAPY PRN HHN SHORTNESS OF BREATH; Start 09/17/18 at 03:30 Ferrous Sulfate (Ferrous Sulfate (Ec)) 325 mg DAILY PO Last administered on 09/17/18 09:58; Admin Dose 325 MG; Start 09/17/18 at 09:00 Lorazepam (Ativan) 1 mg Q12H PRN PO ANXIETY; Start 09/17/18 at 03:30 Magnesium Oxide (Mag-Ox 400) 400 mg DAILY PO Last administered on 09/17/18 09:58; Admin Dose 400 MG; Start 09/17/18 at 09:00 Potassium Chloride (Klor-Con 20) 60 meq DAILY PO Last administered on 09/17/18 09:57; Admin Dose 60 MEQ; Start 09/17/18 at 09:00 Albumin Human 100 ml @ 100 mls/hr Q8H IV Last administered on 09/17/18at 09:01; Admin Dose 100 MLS/HR; Start 09/17/18 at 06:30; Stop 09/17/18 at 23:29 ALE RAY MD Sep 17, 2018 14:04
[2018-09-17] MEDS ORDERED: DEXTROSE 50% 50 ML SYRINGE IV PRN ×2 (14:30)
[2018-09-17] MEDS ORDERED: GLUCOSE GEL 15 GRAM TUBE PO PRN ×2 (14:30)
[2018-09-17] MEDS ORDERED: GLUCOSE GEL 15 GRAM TUBE BUCCAL PRN (14:30)
[2018-09-17] MEDS ORDERED: GLUCAGON 1 MG INJ IM PRN (14:30)
[2018-09-17] MEDS: THIAMINE 100 MG TAB PO SCH (15:01)
[2018-09-17 15:08] VITALS: BP 81/56; PULSE 79; RESP 18
[2018-09-17 16:20] VITALS: BP 84/51; PULSE 99
[2018-09-17] MEDS: SOD CHLORIDE 0.9% 1,000 ML IV SCH (16:35)
[2018-09-17] MEDS ORDERED: INSULIN ASPART [NOVOLOG] 3 ML PEN SC SCH (17:00)
[2018-09-17] MEDS: INSULIN ASPART [NOVOLOG] 3 ML PEN SC SCH ×2 (17:35→21:00)
[2018-09-17 20:00] VITALS: BP 92/59; PULSE 101; PULSE 103; RESP 20
[2018-09-18] VITALS (7 sets, daily range): BP systolic 82–98; BP diastolic 47–63; PULSE 90–101; RESP 17–20
[2018-09-18] MEDS: ACCU-CHEK XX SCH (02:00)
[2018-09-18] MEDS ORDERED: ALBUMIN HUMAN 25% 100 ML IV ONE (06:00)
[2018-09-18] MEDS ORDERED: MIDODRINE 5 MG TAB PO ONE (06:00)
[2018-09-18] MEDS: SOD CHLORIDE 0.9% 1,000 ML IV SCH ×2 (06:04→20:31)
[2018-09-18] MEDS: INSULIN ASPART [NOVOLOG] 3 ML PEN SC SCH ×4 (07:43→20:31)
--- NOTE | 2018-09-18 09:02 | PN ---
DATE: 09/18/2018 SUBJECTIVE: The patient remains hypotensive. Receiving midodrine. No other events noted. OBJECTIVE: VITAL SIGNS: Blood pressure is 83/51, pulse 94, respirations 17, temperature 98.5. HEENT: Head is normocephalic. NECK: Supple. HEART: Regular rate. LUNGS: Show diminished breath sounds at the base. ABDOMEN: Soft, nontender to palpation. No rebound or guarding. EXTREMITIES: Negative for clubbing, cyanosis, no edema. DERMATOLOGIC: No rashes. MUSCULOSKELETAL: No joint effusion. NEUROLOGIC: No change in exam. MEDICATIONS: The patient's medications have been reviewed. LABORATORY DATA: Has been reviewed. IMAGING: The imaging studies have been reviewed. ASSESSMENT AND PLAN: 1. Nonoliguric acute injury with previous baseline creatinine 1.0 mg/dL. Etiology of acute kidney i njury is secondary to volume depletion. The patient's FENa is less than 1% consistent with prerenal etiology. The patient's renal function has been improving with IV hydration. At this point, will co ntinue current treatment plan. Continue volume expansion with IV albumin and monitor renal function closely. 2. Hyponatremia, etiology secondary to acute kidney injury, hyperkalemia. The patient's sodium leve ls have improved. Continue to monitor. 3. Hyperkalemia, improved. The patient is status post potassium repletion. 4. Mineral bone disorder, monitor calcium and phosphorus levels. 5. Decompensated cirrhosis. The patient is status post paracentesis. Continue medical management. diuretic therapy at this time. 6. Hypertension. The patient is on midodrine. 7. Diabetes. Continue current insulin regimen. Dictated By: EMILY VALDEZ/GERMAINE Conf#: [id number] DID#: [id number] CC: CIRO MEI MD;*End*
[2018-09-18] MEDS: FERROUS SULFATE (EC) 325 MG TAB PO SCH (09:24)
[2018-09-18] MEDS: POTASSIUM CHLORIDE (SR) 20 MEQ TAB PO SCH (09:24)
[2018-09-18] MEDS: MAGNESIUM OXIDE 400 MG TAB PO SCH (09:24)
[2018-09-18] MEDS: FAMOTIDINE 20 MG INJ IV SCH (09:25)
[2018-09-18] MEDS: THIAMINE 100 MG TAB PO SCH (09:25)
[2018-09-18] MEDS: ALBUMIN HUMAN 25% 100 ML IV SCH ×2 (09:26→16:10)
--- NOTE | 2018-09-18 20:47 | PN ---
Date/Time of Note Date/Time of Note DATE: 09/18/18 TIME: 20:45 Assessment/Plan VTE Prophylaxis Risk score (from Ns)>0 risk: 1 SCD applied (from [facility] [place] [facility]): No SCD contraindicated: low risk/ambulating Pharmacological prophylaxis: NA/contraindicated Pharm contraindication: low risk/ambulating Lines/Catheters IV Catheter Type (from [facility]): Peripheral IV Assessment/Plan Hospital Course Assessment and plan 1. Decompensated ascites sp paracentesis. Stable consider repeat tap. 2. Cirrhosis, alcohol associated. Follow-up with GI 3. Chronic alcoholism, last drink? 4. Chronic liver disease sequela: Splenomegaly, portal hypertension, ascites 5. Major depression chronic 6. Anemia chronic stable 7. Acute renal failure on CKD, stable hydrate 8. Failure to thrive. History of being homeless. May need social service assistance 9. History of urinary associated sepsis 3 months ago 10. History of DKA 11. Chronic type 2 diabetes 12. History of left wrist fracture surgery 13. Hypovolemia, admitted midodrine; sp fluids and albumin S /5 1 to 2 days of abdominal discomfort ascites. Denies any fever GI bleed. Last drink? Awake alert oriented to year or month. /6: No events. No fever Objective: Vital signs stable PE No pallor icterus Regular no mrg Clear Bs+ nt nd no r/r/g No edema Result Diagram: 09/18/18 0637 09/18/18 0637 Results 24hrs Laboratory Tests Test 09/17/18 21:52 09/18/18 06:37 09/18/18 07:40 09/18/18 11:43 Bedside Glucose 98 92 85 White Blood Count 6.7 # Red Blood Count 2.43 #L Hemoglobin 7.4 #L Hematocrit 21.7 #L Mean Corpuscular Volume 89.3 Mean Corpuscular 30.5 Hemoglobin Mean Corpuscular 34.1 Hemoglobin Concent Red Cell Distribution 14.8 H Width Platelet Count 93 #L Mean Platelet Volume 8.7 Immature Granulocytes % 0.400 Neutrophils % 54.9 Lymphocytes % 26.3 Monocytes % 15.4 H Eosinophils % 2.4 Basophils % 0.6 Nucleated Red Blood 0.0 Cells % Immature Granulocytes # 0.030 Neutrophils # 3.7 Lymphocytes # 1.8 Monocytes # 1.0 H Eosinophils # 0.2 Basophils # 0.0 Nucleated Red Blood 0.0 Cells # Sodium Level 138 Potassium Level 3.6 Chloride Level 107 Carbon Dioxide Level 25 Anion Gap 6 Blood Urea Nitrogen 11 Creatinine 1.72 H Est Glomerular Filtrat 45 L Rate mL/min Glucose Level 86 Hemoglobin A1c 6.3 H Calcium Level 7.7 L Phosphorus Level 3.4 Magnesium Level 1.8 Thyroid Stimulating 1.330 Hormone (TSH) Test 09/18/18 16:48 09/18/18 20:31 Bedside Glucose 90 133 Exam/Review of Systems Exam Vitals Vital Signs Date Temp Pulse Resp B/P (MAP) Pulse Ox O2 O2 Flow FiO2 Time Delivery Rate 09/18/18 99.2 90 18 82/47 (59) 100 19:45 09/17/18 Room Air 12:31 Intake and Output 09/17/18 09/17/18 09/18/18 1515:00 23:00 07:00 IntakeIntake Total 900 ml 300 ml 1150 ml OutputOutput Total 200 ml 400 ml BalanceBalance 900 ml 100 ml 750 ml Results Results 24hrs Laboratory Tests Test 09/17/18 21:52 09/18/18 06:37 09/18/18 07:40 09/18/18 11:43 Bedside Glucose 98 92 85 White Blood Count 6.7 # Red Blood Count 2.43 #L Hemoglobin 7.4 #L Hematocrit 21.7 #L Mean Corpuscular Volume 89.3 Mean Corpuscular 30.5 Hemoglobin Mean Corpuscular 34.1 Hemoglobin Concent Red Cell Distribution 14.8 H Width Platelet Count 93 #L Mean Platelet Volume 8.7 Immature Granulocytes % 0.400 Neutrophils % 54.9 Lymphocytes % 26.3 Monocytes % 15.4 H Eosinophils % 2.4 Basophils % 0.6 Nucleated Red Blood 0.0 Cells % Immature Granulocytes # 0.030 Neutrophils # 3.7 Lymphocytes # 1.8 Monocytes # 1.0 H Eosinophils # 0.2 Basophils # 0.0 Nucleated Red Blood 0.0 Cells # Sodium Level 138 Potassium Level 3.6 Chloride Level 107 Carbon Dioxide Level 25 Anion Gap 6 Blood Urea Nitrogen 11 Creatinine 1.72 H Est Glomerular Filtrat 45 L Rate mL/min Glucose Level 86 Hemoglobin A1c 6.3 H Calcium Level 7.7 L Phosphorus Level 3.4 Magnesium Level 1.8 Thyroid Stimulating 1.330 Hormone (TSH) Test 09/18/18 16:48 09/18/18 20:31 Bedside Glucose 90 133 Medications Medication Current Medications IV Flush (NS 3 ml) 3 ml PER PROTOCOL IV ; Start 09/17/18 at 03:30 Ondansetron HCl (Zofran Inj) 4 mg Q6H PRN IV NAUSEA/VOMITING; Start 09/17/18 at 03:30 Acetaminophen (Tylenol Tab) 650 mg Q6H PRN PO .PAIN 1-3 OR TEMP; Start 09/17/18 at 03:30 Famotidine (Pepcid Iv) 20 mg DAILY IV Last administered on 09/18/18at 09:25; Admin Dose 20 MG; Start 09/17/18 at 09:00 Albuterol/ Ipratropium (Duoneb) 3 ml Q2H RESP THERAPY PRN HHN SHORTNESS OF BREATH; Start 09/17/18 at 03:30 Ferrous Sulfate (Ferrous Sulfate (Ec)) 325 mg DAILY PO Last administered on 09/18/18at 09:24; Admin Dose 325 MG; Start 09/17/18 at 09:00 Lorazepam (Ativan) 1 mg Q12H PRN PO ANXIETY; Start 09/17/18 at 03:30 Magnesium Oxide (Mag-Ox 400) 400 mg DAILY PO Last administered on 09/18/18at 09:24; Admin Dose 400 MG; Start 09/17/18 at 09:00 Potassium Chloride (Klor-Con 20) 60 meq DAILY PO Last administered on 09/18/18at 09:24; Admin Dose 60 MEQ; Start 09/17/18 at 09:00 Thiamine HCl (Vitamin B1) 100 mg DAILY PO Last administered on 09/18/18at 09:25; Admin Dose 100 MG; Start 09/17/18 at 14:30 Diagnostic Test (Pha) (Accu-Chek) 1 ea 02 XX ; Start 09/18/18 at 02:00 Insulin Aspart (Novolog Insulin Pen) NOVOLOG *MILD* ALGORITHM WITH MEALS BEDTIME SC ; Start 09/17/18 at 17:55 Miscellaneous Information 1 ea NOTE XX ; Start 09/17/18 at 14:30 Glucose (Glutose) 15 gm Q15M PRN PO DECREASED GLUCOSE; Start 09/17/18 at 14:30 Glucose (Glutose) 22.5 gm Q15M PRN PO DECREASED GLUCOSE; Start 09/17/18 at 14:30 Dextrose (D50w Syringe) 25 ml Q15M PRN IV DECREASED GLUCOSE; Start 09/17/18 at 14:30 Dextrose (D50w Syringe) 50 ml Q15M PRN IV DECREASED GLUCOSE; Start 09/17/18 at 14:30 Glucagon (Glucagen) 1 mg Q15M PRN IM DECREASED GLUCOSE; Start 09/17/18 at 14:30 Glucose (Glutose) 15 gm Q15M PRN BUCCAL DECREASED GLUCOSE; Start 09/17/18 at 14:30 Sodium Chloride 1,000 ml @ 75 mls/hr [id number] IV Last administered on 09/18/18at 20:31; Admin Dose 75 MLS/HR; Start 09/17/18 at 16:30 Albumin Human 100 ml @ 100 mls/hr Q8H IV Last administered on 09/18/18at 16:10; Admin Dose 100 MLS/HR; Start 09/18/18 at 09:00; Stop 09/19/18 at 01:59 ALE RAY MD Sep 18, 2018 20:47
[2018-09-18] MEDS: ACETAMINOPHEN 325 MG TAB PO PRN (22:16)
[2018-09-19] MEDS: ALBUMIN HUMAN 25% 100 ML IV SCH (00:37)
[2018-09-19 01:00] VITALS: BP 85/53; PULSE 97; RESP 16
[2018-09-19] MEDS: ACCU-CHEK XX SCH (02:00)
[2018-09-19 07:18] VITALS: BP 83/58; PULSE 92; RESP 18
--- NOTE | 2018-09-19 08:10 | PN ---
DATE: 09/19/2018 SUBJECTIVE: The patient is stable, no events overnight. OBJECTIVE: VITAL SIGNS: Blood pressure is 85/53, respirations 16, pulse 97, temperature 98.6. HEENT: Head is normocephalic. NECK: Supple. HEART: Regular rate. LUNGS: Show diminished breath sounds at the base. ABDOMEN: Soft, nontender to palpation without rebound or guarding. EXTREMITIES: Negative for clubbing, cyanosis. Trace edema. DERMATOLOGIC: No rashes. MUSCULOSKELETAL: No joint effusion. NEUROLOGIC: No change in exam. MEDICATIONS: The patient's medications have been reviewed. LABORATORY DATA: Has been reviewed. IMAGING STUDIES: Have been reviewed. ASSESSMENT AND PLAN: 1. Nonoliguric acute kidney injury with previous baseline creatinine 1.0 mg/dL. Etiology of acute k idney injury is secondary to hemodynamics. The patient's renal function is improving with IV hydrati on. Plan is to deescalate IV fluids. Will continue for another 24 hours, continue supportive care, renally dose all medications. 2. Hypernatremia secondary to acute kidney injury, resolved. 3. Hyperkalemia, improved. Continue to monitor and replete with potassium chloride. 4. Mineral bone disorder. Monitor calcium and phosphorus levels. 5. Decompensated cirrhosis. The patient is status post paracentesis. Continue medical management, defer diuretic therapy at this time. 6. Hypotension. Continue midodrine. 7. Diabetes. Continue current insulin regimen. Dictated By: EMILY CARLSON DO NR/NTS Conf#: [id number] DID#: [id number] CC: CIRO MEI MD;*EndCC*
[2018-09-19] MEDS: INSULIN ASPART [NOVOLOG] 3 ML PEN SC SCH ×4 (08:40→20:40)
[2018-09-19] MEDS: THIAMINE 100 MG TAB PO SCH (08:58)
[2018-09-19] MEDS: POTASSIUM CHLORIDE (SR) 20 MEQ TAB PO SCH (08:58)
[2018-09-19] MEDS: MAGNESIUM OXIDE 400 MG TAB PO SCH ×2 (08:58→20:40)
[2018-09-19] MEDS: FAMOTIDINE 20 MG INJ IV SCH (08:58)
[2018-09-19] MEDS: FERROUS SULFATE (EC) 325 MG TAB PO SCH (08:58)
[2018-09-19] MEDS: SOD CHLORIDE 0.9% 1,000 ML IV SCH ×2 (09:00→16:05)
[2018-09-19 14:13] VITALS: BP 89/55; PULSE 96; RESP 18
--- NOTE | 2018-09-19 16:47 | PN ---
Date/Time of Note Date/Time of Note DATE: 09/19/18 TIME: 16:44 Assessment/Plan VTE Prophylaxis Risk score (from Ns)>0 risk: 1 SCD applied (from [facility]): Yes SCD contraindicated: low risk/ambulating Pharmacological prophylaxis: NA/contraindicated Pharm contraindication: blood coag disorder Lines/Catheters IV C[facility]ter Type (from [facility] Peripheral IV Urinary Cath still in place: No Assessment/Plan Hospital Course Assessment and plan 1. Decompensated ascites, sp paracentesis. Stable consider repeat tap. 2. Cirrhosis, alcohol associated. Follow-up with GI. Unable to start diuretic therapy. 3. Chronic alcoholism, last drink? 4. Chronic liver disease sequela: Splenomegaly, portal hypertension, ascites, coagulopathy 5. Major depression chronic 6. Anemia chronic stable, will transfuse if less than 7. 7. Acute renal failure on CKD, stable appreciate nephrology assistance. 8. Ftt. Homeless. Social service assistance appreciated. placement? home soon 9. H/o urinary associated sepsis 3 months ago 10. History of DKA 11. Chronic type 2 diabetes 12. History of left wrist fracture surgery 13. Hypovolemia, on Midodrine; sp fluids/ albumin 14. Metabolic syndrome 15. MODS S /5 1 to 2 days of abdominal discomfort ascites. Denies any fever GI bleed. Last drink? Awake alert oriented to year or month. /: No events. No fever 09/19: No distress. No fever. O: Vital signs ~stable; no tachycardia PE No pallor icterus Regular no mrg Clear Bs+ nt nd no r/r/g No edema Result Diagram: 09/18/18 0637 09/19/18 0432 Results 24hrs Laboratory Tests Test 09/18/18 16:48 09/18/18 20:31 09/19/18 04:32 09/19/18 04:34 Bedside Glucose 90 133 Prothrombin Time 19.1 H Prothrombin Time Ratio 1.5 INR International 1.60 Normalized Ratio Sodium Level 141 Potassium Level 3.6 Chloride Level 110 Carbon Dioxide Level 24 Anion Gap 7 Blood Urea Nitrogen 9 Creatinine 1.42 H Est Glomerular Filtrat 56 L Rate mL/min Glucose Level 97 Calcium Level 7.8 L Phosphorus Level 3.2 Magnesium Level 1.7 Test 09/19/18 08:45 09/19/18 12:46 Bedside Glucose 79 86 Exam/Review of Systems Exam Vitals Vital Signs Date Temp Pulse Resp B/P (MAP) Pulse Ox O2 O2 Flow FiO2 Time Delivery Rate 09/19/18 98.3 96 18 89/55 (66) 98 14:13 09/19/18 Room Air 01:00 Intake and Output 09/18/18 09/18/18 09/19/18 1515:00 23:00 07:00 IntakeIntake Total 420 ml 645 ml OutputOutput Total 300 ml 700 ml BalanceBalance -300 ml -280 ml 645 ml Results Results 24hrs Laboratory Tests Test 09/18/18 16:48 09/18/18 20:31 09/19/18 04:32 09/19/18 04:34 Bedside Glucose 90 133 Prothrombin Time 19.1 H Prothrombin Time Ratio 1.5 INR International 1.60 Normalized Ratio Sodium Level 141 Potassium Level 3.6 Chloride Level 110 Carbon Dioxide Level 24 Anion Gap 7 Blood Urea Nitrogen 9 Creatinine 1.42 H Est Glomerular Filtrat 56 L Rate mL/min Glucose Level 97 Calcium Level 7.8 L Phosphorus Level 3.2 Magnesium Level 1.7 Test 09/19/18 08:45 09/19/18 12:46 Bedside Glucose 79 86 Medications Medication Current Medications IV Flush (NS 3 ml) 3 ml PER PROTOCOL IV ; Start 09/17/18 at 03:30 Ondansetron HCl (Zofran Inj) 4 mg Q6H PRN IV NAUSEA/VOMITING; Start 09/17/18 at 03:30 Acetaminophen (Tylenol Tab) 650 mg Q6H PRN PO .PAIN 1-3 OR TEMP Last administered on 09/18/18at 22:16; Admin Dose 650 MG; Start 09/17/18 at 03:30 Famotidine (Pepcid Iv) 20 mg DAILY IV Last administered on 09/19/18at 08:58; Admin Dose 20 MG; Start 09/17/18 at 09:00 Albuterol/ Ipratropium (Duoneb) 3 ml Q2H RESP THERAPY PRN HHN SHORTNESS OF BREATH; Start 09/17/18 at 03:30 Ferrous Sulfate (Ferrous Sulfate (Ec)) 325 mg DAILY PO Last administered on 09/19/18at 08:58; Admin Dose 325 MG; Start 09/17/18 at 09:00 Lorazepam (Ativan) 1 mg Q12H PRN PO ANXIETY; Start 09/17/18 at 03:30 Magnesium Oxide (Mag-Ox 400) 400 mg DAILY PO Last administered on 09/19/18at 08:58; Admin Dose 400 MG; Start 09/17/18 at 09:00 Potassium Chloride (Klor-Con 20) 60 meq DAILY PO Last administered on 09/19/18at 08:58; Admin Dose 60 MEQ; Start 09/17/18 at 09:00 Thiamine HCl (Vitamin B1) 100 mg DAILY PO Last administered on 09/19/18at 08:58; Admin Dose 100 MG; Start 09/17/18 at 14:30 Diagnostic Test (Pha) (Accu-Chek) 1 ea 02 XX ; Start 09/18/18 at 02:00 Insulin Aspart (Novolog Insulin Pen) NOVOLOG *MILD* ALGORITHM WITH MEALS BEDTIME SC ; Start 09/17/18 at 17:55 Miscellaneous Information 1 ea NOTE XX ; Start 09/17/18 at 14:30 Glucose (Glutose) 15 gm Q15M PRN PO DECREASED GLUCOSE; Start 09/17/18 at 14:30 Glucose (Glutose) 22.5 gm Q15M PRN PO DECREASED GLUCOSE; Start 09/17/18 at 14:30 Dextrose (D50w Syringe) 25 ml Q15M PRN IV DECREASED GLUCOSE; Start 09/17/18 at 14:30 Dextrose (D50w Syringe) 50 ml Q15M PRN IV DECREASED GLUCOSE; Start 09/17/18 at 14:30 Glucagon (Glucagen) 1 mg Q15M PRN IM DECREASED GLUCOSE; Start 09/17/18 at 14:30 Glucose (Glutose) 15 gm Q15M PRN BUCCAL DECREASED GLUCOSE; Start 09/17/18 at 14:30 Sodium Chloride 1,000 ml @ 40 mls/hr Q24H IV Last administered on 09/19/18at 16:05; Admin Dose 40 MLS/HR; Start 09/17/18 at 16:30 ALE RAY MD Sep 19, 2018 16:47
[2018-09-19 19:29] VITALS: BP 102/56; PULSE 100; RESP 18
[2018-09-19] MEDS: FAMOTIDINE 20 MG TAB PO SCH (20:40)
[2018-09-19] MEDS: ACETAMINOPHEN 325 MG TAB PO PRN (21:16)
[2018-09-20 01:44] VITALS: BP 92/59; PULSE 95; RESP 16
[2018-09-20] MEDS: ACCU-CHEK XX SCH (02:00)
[2018-09-20] MEDS: ACETAMINOPHEN 325 MG TAB PO PRN (05:27)
[2018-09-20 07:21] VITALS: BP 101/62; PULSE 92; RESP 19
[2018-09-20] MEDS ORDERED: MAGNESIUM SULFATE 2 GM/50 ML 50 ML IVPB ONE ×2 (08:00→09:00)
--- NOTE | 2018-09-20 08:16 | PN ---
DATE: 09/20/2018 SUBJECTIVE: The patient is stable, no events overnight. No fevers, chills, nausea, vomiting. OBJECTIVE: VITAL SIGNS: Blood pressure is 101/62, pulse 92, respirations 19, temperature 98.2. HEENT: Head is normocephalic. NECK: Supple. HEART: Regular rate. LUNGS: Show diminished breath sounds at the base. ABDOMEN: Soft, nontender to palpation without rebound or guarding. EXTREMITIES: Negative for clubbing, cyanosis, no edema. DERMATOLOGIC: No rashes. MUSCULOSKELETAL: No joint effusion. NEUROLOGIC: No change in exam. MEDICATIONS: Have been reviewed. LABORATORY DATA: Has been reviewed. IMAGING STUDIES: Have been reviewed. ASSESSMENT AND PLAN: 1. Nonoliguric acute kidney injury with previous baseline creatinine 1.0 mg/dL. Etiology of acute k idney injury is secondary to hemodynamics. Renal function has been improving. Continue current nicole tment plan, supportive care, renally dose all meds. 2. Hypernatremia, secondary to acute kidney injury, resolved. 3. Hypokalemia, improved. Continue to replete with potassium chloride. 4. Mineral bone disorder. Monitor calcium and phosphorus levels. 5. Decompensated cirrhosis. The patient is status post paracentesis. Continue medical management, defer diuretic therapy at this time. 6. Hypertension, questionable component of adrenal insufficiency. May consider starting the patient on hydrocortisone. Endocrinology evaluation. 7. Diabetes. Continue current insulin regimen. Dictated By: EMILY CARLSON DO NR/NTS Conf#: [id number] DID#: [id number] CC: CIRO MEI MD;*EndCC*
[2018-09-20] MEDS: INSULIN ASPART [NOVOLOG] 3 ML PEN SC SCH ×4 (08:40→20:37)
[2018-09-20] MEDS: THIAMINE 100 MG TAB PO SCH (09:18)
[2018-09-20] MEDS: POTASSIUM CHLORIDE (SR) 20 MEQ TAB PO SCH (09:18)
[2018-09-20] MEDS: FERROUS SULFATE (EC) 325 MG TAB PO SCH (09:18)
[2018-09-20] MEDS: MAGNESIUM OXIDE 400 MG TAB PO SCH ×3 (09:18→20:37)
--- NOTE | 2018-09-20 14:55 | PN ---
Date/Time of Note Date/Time of Note DATE: 09/20/18 TIME: 14:42 Assessment/Plan VTE Prophylaxis Risk score (from [facility] [place])>0 risk: 1 SCD applied (from [facility] [place]): Yes Pharmacological prophylaxis: other Pharm contraindication: liver dx Lines/Catheters [facility]from [facility] Peripheral IV Urinary Cath still in place: No Assessment/Plan Assessment/Plan 1. Ascites from alcoholic liver disease, s/p paracentesis with 4.5 liters on 09/17/2018 2. Alcoholic liver disease 3. Alcoholism, thiamine/folic acid, ativan prn 4. Acute kidney injury, improving 5. DM, on ISS 6. Normocytic anemia, multifactorial, follow up with H/H 7. Thrombocytopenia, alcohol and ALD related, follow up with PLT 8. Ftt. Homeless. Social service assistance appreciated. placement? home soon Result Diagram: 09/20/18 0435 09/20/18 0435 Results 24hrs Laboratory Tests Test 09/19/18 17:37 09/19/18 20:39 09/20/18 04:35 09/20/18 08:41 Bedside Glucose 113 112 100 White Blood Count 6.4 Red Blood Count 2.69 L Hemoglobin 8.0 L Hematocrit 23.8 L Mean Corpuscular Volume 88.5 Mean Corpuscular 29.7 Hemoglobin Mean Corpuscular 33.6 Hemoglobin Concent Red Cell Distribution 14.8 H Width Platelet Count 94 L Mean Platelet Volume 8.6 Immature Granulocytes % 0.500 H Neutrophils % 50.7 Lymphocytes % 29.5 Monocytes % 14.8 H Eosinophils % 3.7 Basophils % 0.8 Nucleated Red Blood 0.0 Cells % Immature Granulocytes # 0.030 Neutrophils # 3.3 Lymphocytes # 1.9 Monocytes # 1.0 H Eosinophils # 0.2 Basophils # 0.1 Nucleated Red Blood 0.0 Cells # Sodium Level 140 Potassium Level 3.9 Chloride Level 111 H Carbon Dioxide Level 23 Anion Gap 6 Blood Urea Nitrogen 8 Creatinine 1.33 H Est Glomerular Filtrat > 60 Rate mL/min Glucose Level 86 Calcium Level 8.1 L Phosphorus Level 4.1 Magnesium Level 1.5 L Random Cortisol 0.6 Test 09/20/18 12:38 Bedside Glucose 157 Subjective 24 Hr Interval Summary Free Text/Dictation no fever, no abdominal pain Exam/Review of Systems Exam Vitals Vital Signs Date Temp Pulse Resp B/P (MAP) Pulse Ox O2 O2 Flow FiO2 Time Delivery Rate 09/20/18 98.2 92 19 101/62 98 07:21 (75) 09/20/18 Room Air 01:44 Intake and Output 09/19/18 09/19/18 09/20/18 1515:00 23:00 07:00 IntakeIntake Total 300 ml 365 ml 1120 ml OutputOutput Total 800 ml BalanceBalance 300 ml 365 ml 320 ml Constitutional: alert, oriented, well developed Psych: no complaints, nl mood/affect Head: normocephalic, atraumatic Eyes: nl conjunctiva, EOMI, nl lids ENMT: nl external ears & nose, nl lips & teeth, nl nasal mucosa & septum Neck: supple, non-tender Respiratory: clear to auscultation, normal air movement; No congested cough, No crackles/rales, No diminished breath sounds, No intercostal retraction, No labored breathing, No respirations, No tactile fremitus, No wheezing, No other Cardiovascular: regular rate and rhythm, nl pulses; No bruits, No diastolic murmur, No edema, No gallop, No irregular rhythm, No jugular venous distention (JVD), No murmurs/extra sounds, No rub, No systolic murmur, No S3, No S4, No other Gastrointestinal: non-tender, distended Musculoskeletal: nl extremities to inspection Extremities: normal pulses; No calf tenderness, No cyanosis, No clubbing, No edema, No pitting pedal edema, No palpable cord, No tenderness, No other 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: ACCIDENT EXAMINER II-XII intact, nl mental status, nl speech, nl strength Results Results 24hrs Laboratory Tests Test 09/19/18 17:37 09/19/18 20:39 09/20/18 04:35 09/20/18 08:41 Bedside Glucose 113 112 100 White Blood Count 6.4 Red Blood Count 2.69 L Hemoglobin 8.0 L Hematocrit 23.8 L Mean Corpuscular Volume 88.5 Mean Corpuscular 29.7 Hemoglobin Mean Corpuscular 33.6 Hemoglobin Concent Red Cell Distribution 14.8 H Width Platelet Count 94 L Mean Platelet Volume 8.6 Immature Granulocytes % 0.500 H Neutrophils % 50.7 Lymphocytes % 29.5 Monocytes % 14.8 H Eosinophils % 3.7 Basophils % 0.8 Nucleated Red Blood 0.0 Cells % Immature Granulocytes # 0.030 Neutrophils # 3.3 Lymphocytes # 1.9 Monocytes # 1.0 H Eosinophils # 0.2 Basophils # 0.1 Nucleated Red Blood 0.0 Cells # Sodium Level 140 Potassium Level 3.9 Chloride Level 111 H Carbon Dioxide Level 23 Anion Gap 6 Blood Urea Nitrogen 8 Creatinine 1.33 H Est Glomerular Filtrat > 60 Rate mL/min Glucose Level 86 Calcium Level 8.1 L Phosphorus Level 4.1 Magnesium Level 1.5 L Random Cortisol 0.6 Test 09/20/18 12:38 Bedside Glucose 157 Medications Medication Current Medications IV Flush (NS 3 ml) 3 ml PER PROTOCOL IV ; Start 09/17/18 at 03:30 Ondansetron HCl (Zofran Inj) 4 mg Q6H PRN IV NAUSEA/VOMITING; Start 09/17/18 at 03:30 Acetaminophen (Tylenol Tab) 650 mg Q6H PRN PO .PAIN 1-3 OR TEMP Last administered on 09/20/18at 05:27; Admin Dose 650 MG; Start 09/17/18 at 03:30 Albuterol/ Ipratropium (Duoneb) 3 ml Q2H RESP THERAPY PRN HHN SHORTNESS OF BREATH; Start 09/17/18 at 03:30 Ferrous Sulfate (Ferrous Sulfate (Ec)) 325 mg DAILY PO Last administered on 09/20/18at 09:18; Admin Dose 325 MG; Start 09/17/18 at 09:00 Lorazepam (Ativan) 1 mg Q12H PRN PO ANXIETY; Start 09/17/18 at 03:30 Potassium Chloride (Klor-Con 20) 60 meq DAILY PO Last administered on 09/20/18at 09:18; Admin Dose 60 MEQ; Start 09/17/18 at 09:00 Thiamine HCl (Vitamin B1) 100 mg DAILY PO Last administered on 09/20/18 09:18; Admin Dose 100 MG; Start 09/17/18 at 14:30 Diagnostic Test (Pha) (Accu-Chek) 1 ea 02 XX ; Start 09/18/18 at 02:00 Insulin Aspart (Novolog Insulin Pen) NOVOLOG *MILD* ALGORITHM WITH MEALS BEDTIME SC Last administered on 09/20/18at 13:00; Admin Dose 1 UNIT; Start 09/17/18 at 17:55 Miscellaneous Information 1 ea NOTE XX ; Start 09/17/18 at 14:30 Glucose (Glutose) 15 gm Q15M PRN PO DECREASED GLUCOSE; Start 09/17/18 at 14:30 Glucose (Glutose) 22.5 gm Q15M PRN PO DECREASED GLUCOSE; Start 09/17/18 at 14:30 Dextrose (D50w Syringe) 25 ml Q15M PRN IV DECREASED GLUCOSE; Start 09/17/18 at 14:30 Dextrose (D50w Syringe) 50 ml Q15M PRN IV DECREASED GLUCOSE; Start 09/17/18 at 14:30 Glucagon (Glucagen) 1 mg Q15M PRN IM DECREASED GLUCOSE; Start 09/17/18 at 14:30 Glucose (Glutose) 15 gm Q15M PRN BUCCAL DECREASED GLUCOSE; Start 09/17/18 at 14:30 Magnesium Oxide (Mag-Ox 400) 400 mg TID PO Last administered on 09/20/18at 13:01; Admin Dose 400 MG; Start 09/19/18 at 21:00 Famotidine (Pepcid) 20 mg HS PO Last administered on 09/19/18at 20:40; Admin Dose 20 MG; Start 09/19/18 at 21:00 ANGEL BATISTA MD Sep 20, 2018 14:54
[2018-09-20 19:53] VITALS: BP 101/65; PULSE 106; RESP 18
[2018-09-20] MEDS: FAMOTIDINE 20 MG TAB PO SCH (20:37)
[2018-09-21 01:56] VITALS: BP 99/72; PULSE 107; RESP 18
[2018-09-21] MEDS: ACCU-CHEK XX SCH (02:00)
[2018-09-21 07:25] VITALS: BP 101/68; PULSE 101; RESP 19
[2018-09-21] MEDS: INSULIN ASPART [NOVOLOG] 3 ML PEN SC SCH ×4 (07:50→20:11)
[2018-09-21] MEDS: FOLIC ACID 1 MG TAB PO SCH (08:29)
[2018-09-21] MEDS: MAGNESIUM OXIDE 400 MG TAB PO SCH ×3 (08:29→20:11)
[2018-09-21] MEDS: FERROUS SULFATE (EC) 325 MG TAB PO SCH (08:29)
[2018-09-21] MEDS: POTASSIUM CHLORIDE (SR) 20 MEQ TAB PO SCH (08:29)
[2018-09-21] MEDS: THIAMINE 100 MG TAB PO SCH (08:29)
--- NOTE | 2018-09-21 08:58 | PN ---
DATE: 09/21/2018 SUBJECTIVE: The patient is stable. No events overnight. OBJECTIVE: VITAL SIGNS: Blood pressure is 101/68, pulse 101, respiration 19, temperature 98.2. HEENT: Head is normocephalic. NECK: Supple. HEART: Regular rate. LUNGS: Show diminished breath sounds at the base. ABDOMEN: Soft, nontender to palpation without rebound or guarding. EXTREMITIES: Negative for clubbing, cyanosis, no edema. DERMATOLOGIC: No rashes. MUSCULOSKELETAL: No joint effusion. NEUROLOGIC: No change in exam. MEDICATIONS: Have been reviewed. LABORATORY DATA: Has been reviewed. IMAGING STUDIES: Have been reviewed. ASSESSMENT AND PLAN: 1. Nonoliguric acute kidney injury with previous baseline creatinine 1.0 mg/dL. Etiology of acute k idney injury is secondary to hemodynamics. Renal function has been fluctuating, appears to be stabil ized around creatinine 1.3 mg/dL. Continue to monitor. 2. Hyponatremia, resolved. 3. Hypokalemia, improved. Continue to monitor and replete. 4. Mineral bone disorder. Monitor calcium and phosphorus levels. 5. Decompensated cirrhosis. The patient is status post paracentesis, continue medical management, d efer diuretic therapy at this time. 6. Hypotension, questionable adrenal insufficiency. May consider ordering a cortical stroke and sti m test. Consider hydrocortisone. 7. Diabetes. Continue current insulin regimen. Dictated By: EMILY CARLSON DO NR/NTS Conf#: [id number] DID#: [id number] CC: CIRO MEI MD;*EndCC*
--- NOTE | 2018-09-21 13:59 | PN ---
Date/Time of Note Date/Time of Note DATE: 09/21/18 TIME: 13:57 Assessment/Plan VTE Prophylaxis Risk score (from [facility] [place])>0 risk: 0 SCD applied (from [facility] [place]): Yes Pharmacological prophylaxis: other Pharm contraindication: liver dx Lines/Catheters IV Catheter Type (from [facility]): Saline Lock Urinary Cath still in place: No Assessment/Plan Assessment/Plan 1. Ascites from alcoholic liver disease, s/p paracentesis with 4.5 liters on 09/17/2018, start lasix today 2. Alcoholic liver disease 3. Alcoholism, thiamine/folic acid, ativan prn 4. Acute kidney injury, improving 5. DM, on ISS 6. Normocytic anemia, multifactorial, follow up with H/H 7. Thrombocytopenia, alcohol and ALD related, follow up with PLT 8. Chronic hypotension, cortrosyn stimulation test today Result Diagram: 09/21/18 0429 09/21/18 0429 Results 24hrs Laboratory Tests Test 09/20/18 17:45 09/20/18 20:35 09/21/18 04:29 09/21/18 08:27 Bedside Glucose 129 132 112 White Blood Count 8.6 # Red Blood Count 2.88 L Hemoglobin 8.6 L Hematocrit 25.8 L Mean Corpuscular Volume 89.6 Mean Corpuscular 29.9 Hemoglobin Mean Corpuscular 33.3 Hemoglobin Concent Red Cell Distribution 14.6 H Width Platelet Count 118 #L Mean Platelet Volume 9.2 Immature Granulocytes % 0.300 Neutrophils % 52.7 Lymphocytes % 29.5 Monocytes % 13.0 H Eosinophils % 3.6 Basophils % 0.9 Nucleated Red Blood 0.0 Cells % Immature Granulocytes # 0.030 Neutrophils # 4.6 Lymphocytes # 2.6 Monocytes # 1.1 H Eosinophils # 0.3 Basophils # 0.1 Nucleated Red Blood 0.0 Cells # Sodium Level 139 Potassium Level 4.3 Chloride Level 108 Carbon Dioxide Level 25 Anion Gap 6 Blood Urea Nitrogen 10 Creatinine 1.33 H Est Glomerular Filtrat > 60 Rate mL/min Glucose Level 102 Calcium Level 8.4 Total Bilirubin 0.8 Direct Bilirubin 0.00 Indirect Bilirubin 0.8 Aspartate Amino 80 H Transf (AST/SGOT) Alanine 25 Aminotransferase (ALT/SG PT) Alkaline Phosphatase 175 H Total Protein 6.7 Albumin 2.9 L Globulin 3.80 H Albumin/Globulin Ratio 0.76 Random Cortisol 0.7 Test 09/21/18 12:31 Bedside Glucose 122 Subjective 24 Hr Interval Summary Free Text/Dictation afebrile, no abdominal pain Exam/Review of Systems Exam Vitals Vital Signs Date Temp Pulse Resp B/P (MAP) Pulse Ox O2 O2 Flow FiO2 Time Delivery Rate 09/21/18 98.2 101 19 101/68 97 07:25 (79) 09/21/18 Room Air 01:56 Intake and Output 09/20/18 09/20/18 09/21/18 1515:00 23:00 07:00 IntakeIntake Total 250 ml 805 ml 400 ml OutputOutput Total 750 ml BalanceBalance 250 ml 805 ml -350 ml Constitutional: alert, oriented, well developed Psych: no complaints, nl mood/affect Head: normocephalic, atraumatic Eyes: nl conjunctiva, EOMI, nl lids, PERRL ENMT: nl external ears & nose, nl lips & teeth, nl nasal mucosa & septum Neck: supple, non-tender Respiratory: clear to auscultation, normal air movement; No congested cough, No crackles/rales, No diminished breath sounds, No intercostal retraction, No labored breathing, No respirations, No tactile fremitus, No wheezing, No other Cardiovascular: regular rate and rhythm, nl pulses; No bruits, No diastolic murmur, No edema, No gallop, No irregular rhythm, No jugular venous distention (JVD), No murmurs/extra sounds, No rub, No systolic murmur, No S3, No S4, No other Gastrointestinal: soft, distended Musculoskeletal: nl extremities to inspection Extremities: normal pulses; No calf tenderness, No cyanosis, No clubbing, No edema, No pitting pedal edema, No palpable cord, No tenderness, No other 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: CHAIRMAN AND CHIEF EXECUTIVE OFFICER II-XII intact, nl mental status, nl speech, nl strength Results Results 24hrs Laboratory Tests Test 09/20/18 17:45 09/20/18 20:35 09/21/18 04:29 09/21/18 08:27 Bedside Glucose 129 132 112 White Blood Count 8.6 # Red Blood Count 2.88 L Hemoglobin 8.6 L Hematocrit 25.8 L Mean Corpuscular Volume 89.6 Mean Corpuscular 29.9 Hemoglobin Mean Corpuscular 33.3 Hemoglobin Concent Red Cell Distribution 14.6 H Width Platelet Count 118 #L Mean Platelet Volume 9.2 Immature Granulocytes % 0.300 Neutrophils % 52.7 Lymphocytes % 29.5 Monocytes % 13.0 H Eosinophils % 3.6 Basophils % 0.9 Nucleated Red Blood 0.0 Cells % Immature Granulocytes # 0.030 Neutrophils # 4.6 Lymphocytes # 2.6 Monocytes # 1.1 H Eosinophils # 0.3 Basophils # 0.1 Nucleated Red Blood 0.0 Cells # Sodium Level 139 Potassium Level 4.3 Chloride Level 108 Carbon Dioxide Level 25 Anion Gap 6 Blood Urea Nitrogen 10 Creatinine 1.33 H Est Glomerular Filtrat > 60 Rate mL/min Glucose Level 102 Calcium Level 8.4 Total Bilirubin 0.8 Direct Bilirubin 0.00 Indirect Bilirubin 0.8 Aspartate Amino 80 H Transf (AST/SGOT) Alanine 25 Aminotransferase (ALT/SG PT) Alkaline Phosphatase 175 H Total Protein 6.7 Albumin 2.9 L Globulin 3.80 H Albumin/Globulin Ratio 0.76 Random Cortisol 0.7 Test 09/21/18 12:31 Bedside Glucose 122 Medications Medication Current Medications IV Flush (NS 3 ml) 3 ml PER PROTOCOL IV ; Start 09/17/18 at 03:30 Ondansetron HCl (Zofran Inj) 4 mg Q6H PRN IV NAUSEA/VOMITING; Start 09/17/18 at 03:30 Acetaminophen (Tylenol Tab) 650 mg Q6H PRN PO .PAIN 1-3 OR TEMP Last administered on 09/20/18at 05:27; Admin Dose 650 MG; Start 09/17/18 at 03:30 Albuterol/ Ipratropium (Duoneb) 3 ml Q2H RESP THERAPY PRN HHN SHORTNESS OF BREATH; Start 09/17/18 at 03:30 Ferrous Sulfate (Ferrous Sulfate (Ec)) 325 mg DAILY PO Last administered on at 08:29; Admin Dose 325 MG; Start 09/17/18 at 09:00 Lorazepam (Ativan) 1 mg Q12H PRN PO ANXIETY; Start 09/17/18 at 03:30 Potassium Chloride (Klor-Con 20) 60 meq DAILY PO Last administered on 09/21/18at 08:29; Admin Dose 60 MEQ; Start 09/17/18 at 09:00 Thiamine HCl (Vitamin B1) 100 mg DAILY PO Last administered on 09/21/18at 08:29; Admin Dose 100 MG; Start 09/17/18 at 14:30 Diagnostic Test (Pha) (Accu-Chek) 1 ea 02 XX ; Start 09/18/18 at 02:00 Insulin Aspart (Novolog Insulin Pen) NOVOLOG *MILD* ALGORITHM WITH MEALS BEDTIME SC Last administered on 09/20/18at 13:00; Admin Dose 1 UNIT; Start at 17:55 Miscellaneous Information 1 ea NOTE XX ; Start 09/17/18 at 14:30 Glucose (Glutose) 15 gm Q15M PRN PO DECREASED GLUCOSE; Start 09/17/18 at 14:30 Glucose (Glutose) 22.5 gm Q15M PRN PO DECREASED GLUCOSE; Start 09/17/18 at 14:30 Dextrose (D50w Syringe) 25 ml Q15M PRN IV DECREASED GLUCOSE; Start 09/17/18 at 14:30 Dextrose (D50w Syringe) 50 ml Q15M PRN IV DECREASED GLUCOSE; Start 09/17/18 at 14:30 Glucagon (Glucagen) 1 mg Q15M PRN IM DECREASED GLUCOSE; Start 09/17/18 at 14:30 Glucose (Glutose) 15 gm Q15M PRN BUCCAL DECREASED GLUCOSE; Start 09/17/18 at 14:30 Magnesium Oxide (Mag-Ox 400) 400 mg TID PO Last administered on 09/21/18at 12:31; Admin Dose 400 MG; Start 09/19/18 at 21:00 Famotidine (Pepcid) 20 mg HS PO Last administered on 09/20/18at 20:37; Admin Dose 20 MG; Start 09/19/18 at 21:00 Folic Acid (Folic Acid) 1 mg DAILY PO Last administered on 09/21/18at 08:29; Admin Dose 1 MG; Start 09/21/18 at 09:00 Cosyntropin (Cortrosyn) 0.25 mg ONCE ONCE IV ; Start 09/21/18 at 14:00; Stop 09/21/18 at 14:01; Status ANGEL VELAZQUEZ MD Sep 21, 2018 13:59
[2018-09-21 14:38] VITALS: BP 98/62; PULSE 88; RESP 20
[2018-09-21] MEDS: FUROSEMIDE 20 MG TAB PO SCH (15:32)
[2018-09-21] MEDS ORDERED: COSYNTROPIN 0.25 MG INJ IV ONE (16:00)
[2018-09-21] MEDS: FAMOTIDINE 20 MG TAB PO SCH (20:11)
[2018-09-21 20:21] VITALS: BP 105/64; PULSE 105; RESP 18
[2018-09-22] MEDS: ACCU-CHEK XX SCH (01:31)
[2018-09-22 01:40] VITALS: BP 98/66; PULSE 107; RESP 18
[2018-09-22] MEDS: INSULIN ASPART [NOVOLOG] 3 ML PEN SC SCH ×4 (07:50→20:26)
[2018-09-22 08:00] VITALS: BP 96/63; PULSE 97; RESP 18
--- NOTE | 2018-09-22 08:08 | PN ---
DATE: 09/22/2018 SUBJECTIVE: The patient is stable. No events overnight. OBJECTIVE: VITAL SIGNS: Blood pressure is 98/66, respiration 18, pulse, temperature 99.6. HEENT: Head is normocephalic. NECK: Supple. HEART: Regular rate. LUNGS: Show diminished breath sounds at the base. ABDOMEN: Soft, nontender to palpation without rebound or guarding. EXTREMITIES: Negative for clubbing, cyanosis, no edema. DERMATOLOGIC: No rashes. MUSCULOSKELETAL: No joint effusion. NEUROLOGIC: No change in exam. MEDICATIONS: Have been reviewed. LABORATORY DATA: Has been reviewed. IMAGING STUDIES: Have been reviewed. ASSESSMENT AND PLAN: 1. Nonoliguric acute kidney injury with previous baseline creatinine of 1.0 mg/dL. Etiology of acut e kidney injury is secondary to hemodynamics. Renal function is fluctuating, but improving. Continu e to monitor. 2. Hypernatremia, resolved. 3. Hypokalemia, improved. Continue to monitor and replete. 4. Mineral bone disorder. Monitor calcium and phosphorus levels. 5. Decompensated cirrhosis. The patient is status post paracentesis. Continue medical management. 6. Hypertension, improving. Continue current treatment plan. 7. Diabetes. Continue current insulin regimen. 8. Hypomagnesemia. Continue to monitor and replete. Dictated By: EMILY VALDEZ/GERMAINE Conf#: [id number] DID#: [id number] CC: CIRO MEI MD;*EndCC*
[2018-09-22] MEDS: MAGNESIUM OXIDE 400 MG TAB PO SCH ×3 (08:34→20:24)
[2018-09-22] MEDS: FERROUS SULFATE (EC) 325 MG TAB PO SCH (08:34)
[2018-09-22] MEDS: FUROSEMIDE 20 MG TAB PO SCH (08:34)
[2018-09-22] MEDS: FOLIC ACID 1 MG TAB PO SCH (08:34)
[2018-09-22] MEDS: POTASSIUM CHLORIDE (SR) 20 MEQ TAB PO SCH (08:35)
[2018-09-22] MEDS: THIAMINE 100 MG TAB PO SCH (08:35)
[2018-09-22] MEDS ORDERED: MAGNESIUM SULFATE 2 GM/50 ML 50 ML IVPB ONE ×2 (09:00→17:30)
[2018-09-22 15:12] VITALS: BP 106/65; PULSE 89; RESP 18
--- NOTE | 2018-09-22 17:22 | PN ---
Date/Time of Note Date/Time of Note DATE: 09/22/18 TIME: 17:18 Assessment/Plan VTE Prophylaxis Risk score (from [facility])>0 risk: 0 SCD applied (from [facility] [place] Yes Pharmacological prophylaxis: other Pharm contraindication: liver dx, other Lines/Catheters IV C[facility]ter Type (from [facility]): Saline Lock Urinary Cath still in place: No Assessment/Plan Assessment/Plan 1. Ascites from alcoholic liver disease, s/p paracentesis with 4.5 liters on 09/17/2018, on lasix, add aldactone 2. Alcoholic liver disease 3. Alcoholism, thiamine/folic acid, ativan prn 4. Acute kidney injury, improving 5. DM, on ISS 6. Normocytic anemia, multifactorial, follow up with H/H 7. Thrombocytopenia, alcohol and ALD related, follow up with PLT 8. Chronic hypotension, positive cortrosyn stimulation test, endocrinology consult Result Diagram: 09/21/18 0429 09/22/18 0428 Results 24hrs Laboratory Tests Test 09/21/18 17:30 09/21/18 20:08 09/22/18 04:28 09/22/18 08:33 Bedside Glucose 134 119 88 Sodium Level 141 Potassium Level 3.9 Chloride Level 109 Carbon Dioxide Level 24 Anion Gap 8 Blood Urea Nitrogen 14 Creatinine 1.14 Est Glomerular > 60 Filtrat Rate mL/min Glucose Level 94 Calcium Level 8.4 Phosphorus Level 5.2 H Magnesium Level 1.6 L Test 09/22/18 12:48 Bedside Glucose 108 Subjective 24 Hr Interval Summary Free Text/Dictation weak Exam/Review of Systems Exam Vitals Vital Signs Date Temp Pulse Resp B/P (MAP) Pulse Ox O2 O2 Flow FiO2 Time Delivery Rate 09/22/18 97.3 89 18 106/65 98 Room Air 15:12 (79) Intake and Output 09/21/18 09/21/18 09/22/18 1515:00 23:00 07:00 IntakeIntake Total 680 ml OutputOutput Total 350 ml BalanceBalance 330 ml Constitutional: alert, oriented, well developed Psych: no complaints, nl mood/affect Head: normocephalic, atraumatic Eyes: nl conjunctiva, EOMI, nl lids, PERRL ENMT: nl external ears & nose, nl lips & teeth, nl nasal mucosa & septum Neck: supple, non-tender Respiratory: clear to auscultation, normal air movement Cardiovascular: regular rate and rhythm, nl pulses; No bruits, No diastolic murmur, No edema, No gallop, No irregular rhythm, No jugular venous distention (JVD), No murmurs/extra sounds, No rub, No systolic murmur, No S3, No S4, No other Gastrointestinal: soft, nl liver, spleen Musculoskeletal: nl extremities to inspection Extremities: normal pulses; No calf tenderness, No cyanosis, No clubbing, No edema, No pitting pedal edema, No palpable cord, No tenderness, No other 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: ATTENUATOR II-XII intact, nl mental status, nl speech, nl strength Skin: nl turgor Results Results 24hrs Laboratory Tests Test 09/21/18 17:30 09/21/18 20:08 09/22/18 04:28 09/22/18 08:33 Bedside Glucose 134 119 88 Sodium Level 141 Potassium Level 3.9 Chloride Level 109 Carbon Dioxide Level 24 Anion Gap 8 Blood Urea Nitrogen 14 Creatinine 1.14 Est Glomerular > 60 Filtrat Rate mL/min Glucose Level 94 Calcium Level 8.4 Phosphorus Level 5.2 H Magnesium Level 1.6 L Test 09/22/18 12:48 Bedside Glucose 108 Medications Medication Current Medications IV Flush (NS 3 ml) 3 ml PER PROTOCOL IV ; Start 09/17/18 at 03:30 Ondansetron HCl (Zofran Inj) 4 mg Q6H PRN IV NAUSEA/VOMITING; Start 09/17/18 at 03:30 Acetaminophen (Tylenol Tab) 650 mg Q6H PRN PO .PAIN 1-3 OR TEMP Last administered on 09/20/18at 05:27; Admin Dose 650 MG; Start 09/17/18 at 03:30 Albuterol/ Ipratropium (Duoneb) 3 ml Q2H RESP THERAPY PRN HHN SHORTNESS OF BREATH; Start 09/17/18 at 03:30 Ferrous Sulfate (Ferrous Sulfate (Ec)) 325 mg DAILY PO Last administered on 09/22/18at 08:34; Admin Dose 325 MG; Start 09/17/18 at 09:00 Lorazepam (Ativan) 1 mg Q12H PRN PO ANXIETY; Start 09/17/18 at 03:30 Potassium Chloride (Klor-Con 20) 60 meq DAILY PO Last administered on 09/22/18at 08:35; Admin Dose 60 MEQ; Start 09/17/18 at 09:00 Thiamine HCl (Vitamin B1) 100 mg DAILY PO Last administered on 09/22/18at 08:35; Admin Dose 100 MG; Start 09/17/18 at 14:30 Diagnostic Test (Pha) (Accu-Chek) 1 ea 02 XX ; Start 09/18/18 at 02:00 Insulin Aspart (Novolog Insulin Pen) NOVOLOG *MILD* ALGORITHM WITH MEALS BEDTIME SC Last administered on 09/20/18at 13:00; Admin Dose 1 UNIT; Start 09/17/18 at 17:55 Miscellaneous Information 1 ea NOTE XX ; Start 09/17/18 at 14:30 Glucose (Glutose) 15 gm Q15M PRN PO DECREASED GLUCOSE; Start 09/17/18 at 14:30 Glucose (Glutose) 22.5 gm Q15M PRN PO DECREASED GLUCOSE; Start 09/17/18 at 14:30 Dextrose (D50w Syringe) 25 ml Q15M PRN IV DECREASED GLUCOSE; Start 09/17/18 at 14:30 Dextrose (D50w Syringe) 50 ml Q15M PRN IV DECREASED GLUCOSE; Start 09/17/18 at 14:30 Glucagon (Glucagen) 1 mg Q15M PRN IM DECREASED GLUCOSE; Start 09/17/18 at 14:30 Glucose (Glutose) 15 gm Q15M PRN BUCCAL DECREASED GLUCOSE; Start 09/17/18 at 14:30 Magnesium Oxide (Mag-Ox 400) 400 mg TID PO Last administered on 09/22/18at 12:48; Admin Dose 400 MG; Start 09/19/18 at 21:00 Famotidine (Pepcid) 20 mg HS PO Last administered on 09/21/18at 20:11; Admin Dose 20 MG; Start 09/19/18 at 21:00 Folic Acid (Folic Acid) 1 mg DAILY PO Last administered on 09/22/18at 08:34; Admin Dose 1 MG; Start 09/21/18 at 09:00 Furosemide (Lasix) 20 mg DAILY PO Last administered on 09/22/18at 08:34; Admin Dose 20 MG; Start 09/21/18 at 15:00 Spironolactone (Aldactone) 50 mg DAILY PO ; Start 09/22/18 at 17:30; Status ANGEL VELAZQUEZ MD Sep 22, 2018 17:22
--- NOTE | 2018-09-22 18:17 | CONS ---
Assessment/Plan Assessment/Plan Problems: (1) Type 2 diabetes mellitus without complications Status: Chronic Comment: BG in good control and pt. requiring no medical therapy. (2) Low serum cortisol level Status: Acute Comment: This is an extremely difficult evaluation. Pt. w/ ostensibly very low serum cortisol and although the level increased > 6-fold w/ stimulation, the max cortisol level was still quite low. That being said, 90% of circulating cortisol is bound to cortisol binding globulin (CBG) which in a cirrhotic patient w/ low albumin would be VERY low. Therefore, it becomes very difficult to measure accurately and reliably the serum cortisol. Would suspect that the free cortisol is actually normal but I have no way to measure this. Pt.'s low BP can easily be explained by his cirrhotic state and diuretic use and, truth fully, his BP has not been that low and he has not been symptomatic. Furthermore, as stated in the HPI, he lacks many lab indicators of adrenal insufficiency. However, a patient w/ newly diagnosed T2DM who presents w/ hypoglycemia on a regimen not known to cause hypoglycemia and has not required D M therapy since admit is suspect. Furthermore, adrenal insufficiency IS known to occur in liver cirrhosis for unknown reasons. Therefore, I am left w/ little option but to initiate therapy w/ hydrocortisone. Will start 20 mg qam and 10 mg qpm. Monitor BG, BP, electrolytes, blood counts. Pt. will likely NOT be ready for d/c tomorrow as we will need to monitor response to therapy and decide if it is having any effects. Consultation Date/Type/Reason Admit Date/Time 09/17/18 @ 0600 Date of Consultation: Sep 22, 2018 Type of Consult Endocrinology Reason for Consultation R/o Adrenal insufficiency Requesting Provider: ANGEL BATISTA MD Date/Time of Note DATE: 09/22/18 TIME: 18:00 Hx of Present Illness 38 y/o H M w/ h/o EtOH abuse who presented last month w/ acute weakness and was found to have new onset DM w/ profound hyperglycemia and also cirrhosis of the liver w/ recurrent ascites. Pt. was seen by me at that time to establish DM type and was found to be T2DM. Pt. d/c'ed home 2 weeks ago but returned 6 days ago w/ weakness, decreased appetite, N/V, and recurrent ascites. Req'd another paracentesis. Abd. has been soft since then. Mildly hypoglycemic on admit. Pt. has been on no oral DM meds since admit and has maintained euglycemia since then. His BP has been persistently low. Primary team treating w/ midodrine. Yesterday ordered cortrosyn stim test. Baseline cortisol was < 1.0. Stim increased to 3.6 and 6.2 respectively. Endo consulted. Pt. feels lightheaded only on waking in the mornings. Although pt. presented w/ Na of 131, since then has not had hyponatremia, hyperkalemia, low WBC, low PMN, or elevated eosinophils since arrival. Constitutional: no complaints Eyes: no complaints ENT: no complaints Respiratory: no complaints Cardiovascular: lightheadedness (only on waking in the mornings) Gastrointestinal: decreased appetite, other (distension) Genitourinary: no complaints Musculoskeletal: no complaints Neurologic: no complaints Past Medical History Medical History: diabetes, other (cirrhosis) Home Meds Active Scripts Levofloxacin* (Levofloxacin*) 750 Mg Tablet, 750 MG PO DAILY for 30 Days, #30 TAB Prov:JONN SEAY MD 09/07/18 Metformin* (Glucophage*) 500 Mg Tab, 500 MG PO BID WITH MEALS, #90 TAB 2 Refills Prov:JONN SEAY MD 09/07/18 Linagliptin (TRADJENTA) 5 Mg Tablet, 5 MG PO DAILY, #90 TAB 1 Refill Prov:JONN SEAY MD 09/07/18 Empagliflozin (Jardiance) 10 Mg Tablet, 25 MG PO DAILY@08, #90 TAB 1 Refill Prov:JONN SEAY MD 09/07/18 Magnesium Oxide* (Mag-Oxide*) 400 Mg Tablet, 400 MG PO DAILY, #60 TAB 2 Refills Prov:JONN SEAY MD 09/07/18 Potassium Chloride* (K-Dur*) 20 Meq Tab.prt.sr, 60 MEQ PO DAILY, #90 TAB 2 Refills Prov:JONN SEAY MD 09/07/18 Reported Medications Ferrous Sulfate* (Ferrous Sulfate*) 325 Mg Tabec, 325 MG PO DAILY, TAB 08/25/18 Lorazepam* (Lorazepam*) 1 Mg Tablet, 1 MG PO Q12H PRN for ANXIETY for 15 Days, #30 08/25/18 Cholecalciferol* (Vitamin D*) 400 Unit Tablet, 800 UNIT PO DAILY, TAB 06/24/17 Medications Current Medications IV Flush (NS 3 ml) 3 ml PER PROTOCOL IV ; Start 09/17/18 at 03:30 Ondansetron HCl (Zofran Inj) 4 mg Q6H PRN IV NAUSEA/VOMITING; Start 09/17/18 at 03:30 Acetaminophen (Tylenol Tab) 650 mg Q6H PRN PO .PAIN 1-3 OR TEMP Last administered on 09/20/18at 05:27; Admin Dose 650 MG; Start 09/17/18 at 03:30 Albuterol/ Ipratropium (Duoneb) 3 ml Q2H RESP THERAPY PRN HHN SHORTNESS OF BREATH; Start 09/17/18 at 03:30 Ferrous Sulfate (Ferrous Sulfate (Ec)) 325 mg DAILY PO Last administered on 09/22/18at 08:34; Admin Dose 325 MG; Start 09/17/18 at 09:00 Lorazepam (Ativan) 1 mg Q12H PRN PO ANXIETY; Start 09/17/18 at 03:30 Potassium Chloride (Klor-Con 20) 60 meq DAILY PO Last administered on 09/22/18at 08:35; Admin Dose 60 MEQ; Start 09/17/18 at 09:00 Thiamine HCl (Vitamin B1) 100 mg DAILY PO Last administered on 09/22/18at 08:35; Admin Dose 100 MG; Start 09/17/18 at 14:30 Diagnostic Test (Pha) (Accu-Chek) 1 ea 02 XX ; Start 09/18/18 at 02:00 Insulin Aspart (Novolog Insulin Pen) NOVOLOG *MILD* ALGORITHM WITH MEALS BEDTIME SC Last administered on 09/20/18at 13:00; Admin Dose 1 UNIT; Start 09/17/18 at 17:55 Miscellaneous Information 1 ea NOTE XX ; Start 09/17/18 at 14:30 Glucose (Glutose) 15 gm Q15M PRN PO DECREASED GLUCOSE; Start 09/17/18 at 14:30 Glucose (Glutose) 22.5 gm Q15M PRN PO DECREASED GLUCOSE; Start 09/17/18 at 14:30 Dextrose (D50w Syringe) 25 ml Q15M PRN IV DECREASED GLUCOSE; Start 09/17/18 at 14:30 Dextrose (D50w Syringe) 50 ml Q15M PRN IV DECREASED GLUCOSE; Start 09/17/18 at 14:30 Glucagon (Glucagen) 1 mg Q15M PRN IM DECREASED GLUCOSE; Start 09/17/18 at 14:30 Glucose (Glutose) 15 gm Q15M PRN BUCCAL DECREASED GLUCOSE; Start 09/17/18 at 14:30 Magnesium Oxide (Mag-Ox 400) 400 mg TID PO Last administered on 09/22/18at 12:48; Admin Dose 400 MG; Start 09/19/18 at 21:00 Famotidine (Pepcid) 20 mg HS PO Last administered on 09/21/18at 20:11; Admin Dose 20 MG; Start 09/19/18 at 21:00 Folic Acid (Folic Acid) 1 mg DAILY PO Last administered on 09/22/18at 08:34; Admin Dose 1 MG; Start 09/21/18 at 09:00 Furosemide (Lasix) 20 mg DAILY PO Last administered on 09/22/18at 08:34; Admin Dose 20 MG; Start 09/21/18 at 15:00 Spironolactone (Aldactone) 50 mg DAILY PO ; Start 09/22/18 at 17:30 Magnesium Sulfate 50 ml @ 25 mls/hr ONCE ONCE IVPB ; Start 09/22/18 at 17:30; Stop 09/22/18 at 19:29 Hydrocortisone (Cortef) 20 mg DAILY@0700 PO ; Start 09/23/18 at 07:00; Status UNV Hydrocortisone (Cortef) 10 mg DAILY@1700 PO ; Start 09/22/18 at 18:00; Status UNV Allergies: Coded Allergies: No Known Allergy (Unverified , 08/25/18) Past Surgical History Past Surgical Hx: other (ORIF compound fracture L forearm) Family History Significant Family History: cancer (breast in mother), diabetes (mother) Social History b. 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, no children Alcohol Use: sober (3 months) Smoking Status: Never smoker Drug Use: marijuana (qod) Exam/Review of Systems Exam Vitals VS - Last 72 Hours, by Label Date Temp Pulse Resp B/P (MAP) Pulse Ox O2 O2 Flow FiO2 Time Delivery Rate 09/22/18 97.3 89 18 106/65 98 Room Air 15:12 (79) 09/22/18 97.6 97 18 96/63 (74) 99 Room Air 08:00 09/22/18 99.6 107 18 98/66 (77) 96 Room Air 01:40 09/21/18 99.5 105 18 105/64 96 Room Air 20:21 (78) 09/21/18 98.1 88 20 98/62 (74) 96 14:38 09/21/18 98.2 101 19 101/68 97 07:25 (79) 09/21/18 99.2 107 18 99/72 (81) 94 Room Air 01:56 09/20/18 99.7 21:00 09/20/18 100.1 106 18 101/65 97 Room Air 19:53 (77) 09/20/18 98.2 92 19 101/62 98 07:21 (75) 09/20/18 98.4 95 16 92/59 (70) 99 Room Air 01:44 09/19/18 98.2 100 18 102/56 98 Room Air 19:29 (71) Vital Signs Date Temp Pulse Resp B/P (MAP) Pulse Ox O2 O2 Flow FiO2 Time Delivery Rate 09/22/18 97.3 89 18 106/65 98 Room Air 15:12 (79) Intake and Output 09/21/18 09/21/18 09/22/18 1414:59 22:59 06:59 IntakeIntake Total 680 ml OutputOutput Total 350 ml BalanceBalance 330 ml Constitutional: alert, oriented, well developed Psych: no complaints, nl mood/affect Eyes: nl conjunctiva, EOMI, nl lids, nl sclera, PERRL ENMT: nl external ears & nose, mucosa pink and moist Neck: supple, non-tender; No bruits, No masses, No thyromegaly Respiratory: clear to auscultation, normal air movement Cardiovascular: regular rate and rhythm, nl pulses; No edema, No murmurs/extra sounds, No rub Gastrointestinal: soft, nl liver, spleen, non-tender, bowel sounds; No mass, No rebound or guarding Musculoskeletal: nl extremities to inspection Extremities: normal pulses; No cyanosis, No clubbing, No edema 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: TRAFFIC COORDINATOR II-XII intact, nl mental status, nl speech, nl strength Additional Comments Bedside Glucose - 72 Hours Test 09/19/18 20:39 09/20/18 08:41 09/20/18 12:38 09/20/18 17:45 Bedside 112 100 157 129 Glucose mg/dL (70-220) mg/dL (70-220) mg/dL (70-220) mg/dL (70-220) Test 09/20/18 20:35 09/21/18 08:27 09/21/18 12:31 09/21/18 17:30 Bedside 132 112 122 134 Glucose mg/dL (70-220) mg/dL (70-220) mg/dL (70-220) mg/dL (70-220) Test 09/21/18 20:08 09/22/18 08:33 09/22/18 12:48 09/22/18 17:35 Bedside 119 88 108 112 Glucose mg/dL (70-220) mg/dL (70-220) mg/dL (70-220) mg/dL (70-220) Results Result Diagram: 09/21/18 0429 09/22/18 0428 Results 24hrs Laboratory Tests Test 09/21/18 20:08 09/22/18 04:28 09/22/18 08:33 09/22/18 12:48 Bedside Glucose 119 88 108 Sodium Level 141 Potassium Level 3.9 Chloride Level 109 Carbon Dioxide Level 24 Anion Gap 8 Blood Urea Nitrogen 14 Creatinine 1.14 Est Glomerular > 60 Filtrat Rate mL/min Glucose Level 94 Calcium Level 8.4 Phosphorus Level 5.2 H Magnesium Level 1.6 L Test 09/22/18 17:35 Bedside Glucose 112 Medications Medication Current Medications IV Flush (NS 3 ml) 3 ml PER PROTOCOL IV ; Start 09/17/18 at 03:30 Ondansetron HCl (Zofran Inj) 4 mg Q6H PRN IV NAUSEA/VOMITING; Start 09/17/18 at 03:30 Acetaminophen (Tylenol Tab) 650 mg Q6H PRN PO .PAIN 1-3 OR TEMP Last administered on 09/20/18at 05:27; Admin Dose 650 MG; Start 09/17/18 at 03:30 Albuterol/ Ipratropium (Duoneb) 3 ml Q2H RESP THERAPY PRN HHN SHORTNESS OF BREATH; Start 09/17/18 at 03:30 Ferrous Sulfate (Ferrous Sulfate (Ec)) 325 mg DAILY PO Last administered on 09/22/18at 08:34; Admin Dose 325 MG; Start 09/17/18 at 09:00 Lorazepam (Ativan) 1 mg Q12H PRN PO ANXIETY; Start 09/17/18 at 03:30 Potassium Chloride (Klor-Con 20) 60 meq DAILY PO Last administered on 09/22/18at 08:35; Admin Dose 60 MEQ; Start 09/17/18 at 09:00 Thiamine HCl (Vitamin B1) 100 mg DAILY PO Last administered on 09/22/18at 08:35; Admin Dose 100 MG; Start 09/17/18 at 14:30 Diagnostic Test (Pha) (Accu-Chek) 1 ea 02 XX ; Start 09/18/18 at 02:00 Insulin Aspart (Novolog Insulin Pen) NOVOLOG *MILD* ALGORITHM WITH MEALS BEDTIME SC Last administered on 09/20/18at 13:00; Admin Dose 1 UNIT; Start 09/17/18 at 17:55 Miscellaneous Information 1 ea NOTE XX ; Start 09/17/18 at 14:30 Glucose (Glutose) 15 gm Q15M PRN PO DECREASED GLUCOSE; Start 09/17/18 at 14:30 Glucose (Glutose) 22.5 gm Q15M PRN PO DECREASED GLUCOSE; Start 09/17/18 at 14:30 Dextrose (D50w Syringe) 25 ml Q15M PRN IV DECREASED GLUCOSE; Start 09/17/18 at 14:30 Dextrose (D50w Syringe) 50 ml Q15M PRN IV DECREASED GLUCOSE; Start 09/17/18 at 14:30 Glucagon (Glucagen) 1 mg Q15M PRN IM DECREASED GLUCOSE; Start 09/17/18 at 14:30 Glucose (Glutose) 15 gm Q15M PRN BUCCAL DECREASED GLUCOSE; Start 09/17/18 at 14:30 Magnesium Oxide (Mag-Ox 400) 400 mg TID PO Last administered on 09/22/18at 12:48; Admin Dose 400 MG; Start 09/19/18 at 21:00 Famotidine (Pepcid) 20 mg HS PO Last administered on 09/21/18at 20:11; Admin Dose 20 MG; Start 09/19/18 at 21:00 Folic Acid (Folic Acid) 1 mg DAILY PO Last administered on 09/22/18at 08:34; Admin Dose 1 MG; Start 09/21/18 at 09:00 Furosemide (Lasix) 20 mg DAILY PO Last administered on 09/22/18at 08:34; Admin Dose 20 MG; Start 09/21/18 at 15:00 Spironolactone (Aldactone) 50 mg DAILY PO ; Start 09/22/18 at 17:30 Magnesium Sulfate 50 ml @ 25 mls/hr ONCE ONCE IVPB ; Start 09/22/18 at 17:30; Stop 09/22/18 at 19:29 Hydrocortisone (Cortef) 20 mg DAILY@0700 PO ; Start 09/23/18 at 07:00; Status UNV Hydrocortisone (Cortef) 10 mg DAILY@1700 PO ; Start 09/22/18 at 18:00; Status UNV DELIO CESPEDES MD Sep 22, 2018 18:16
[2018-09-22] MEDS: SPIRONOLACTONE 50 MG TAB PO SCH (18:40)
[2018-09-22] MEDS: HYDROCORTISONE 5 MG TAB PO SCH (18:41)
[2018-09-22 19:15] VITALS: BP 106/65; PULSE 92; RESP 20
[2018-09-22] MEDS: FAMOTIDINE 20 MG TAB PO SCH (20:24)
[2018-09-23] MEDS: ACCU-CHEK XX SCH (01:10)
[2018-09-23 02:05] VITALS: BP 100/61; PULSE 95; RESP 18
[2018-09-23] MEDS: HYDROCORTISONE 20 MG TAB PO SCH (06:39)
[2018-09-23 07:15] VITALS: BP 96/65; PULSE 98; RESP 14
[2018-09-23] MEDS: INSULIN ASPART [NOVOLOG] 3 ML PEN SC SCH ×4 (08:27→20:35)
[2018-09-23] MEDS: POTASSIUM CHLORIDE (SR) 20 MEQ TAB PO SCH (08:28)
[2018-09-23] MEDS: FERROUS SULFATE (EC) 325 MG TAB PO SCH (08:29)
[2018-09-23] MEDS: MAGNESIUM OXIDE 400 MG TAB PO SCH ×3 (08:29→20:35)
[2018-09-23] MEDS: FOLIC ACID 1 MG TAB PO SCH (08:29)
[2018-09-23] MEDS: THIAMINE 100 MG TAB PO SCH (08:29)
[2018-09-23] MEDS: FUROSEMIDE 20 MG TAB PO SCH (08:30)
[2018-09-23] MEDS: SPIRONOLACTONE 50 MG TAB PO SCH (08:30)
--- NOTE | 2018-09-23 08:53 | PN ---
DATE: 09/23/2018 SUBJECTIVE: The patient is stable. No events overnight. OBJECTIVE: VITAL SIGNS: Blood pressure 96/65, pulse is 98, respiration 14, temperature 98.7. HEENT: Head is normocephalic. NECK: Supple. HEART: Regular rate. LUNGS: Show diminished breath sounds at the base. ABDOMEN: Soft, nontender to palpation without rebound or guarding. EXTREMITIES: Negative for clubbing, cyanosis, no edema. DERMATOLOGIC: No rashes. MUSCULOSKELETAL: No joint effusion. NEUROLOGIC: No change in exam. MEDICATIONS: The patient's medications have been reviewed. LABORATORY DATA: Laboratory data has been reviewed. IMAGING STUDIES: Imaging studies have been reviewed. ASSESSMENT AND PLAN: 1. Nonoliguric acute kidney injury with previously normal baseline creatinine. Etiology is secondar y to hemodynamics. Renal function is improved. Continue current treatment plan and monitor. 2. Mineral bone disorder. Monitor calcium and phosphorus levels. 3. Hypokalemia, hypernatremia, resolved. 4. Decompensated cirrhosis, status post paracentesis. Continue medical management. 5. Hypertension, improving. 6. Diabetes. Continue current insulin regimen. 7. Hypomagnesemia. Continue to monitor and replete as needed. Dictated By: EMILY CARLSON DO NR/NTS Conf#: [id number] DID#: [id number] CC: CIRO MEI MD; LUCIANO HORNE MD; ANGEL BATISTA MD;*EndCC*
[2018-09-23 14:56] VITALS: BP 96/56; PULSE 92; RESP 14
--- NOTE | 2018-09-23 15:26 | PN ---
Date/Time of Note Date/Time of Note DATE: 09/23/18 TIME: 15:22 Assessment/Plan VTE [place] [facility] [place]: 1 [place] [facility] [place] Yes Pharmacological prophylaxis: other Pharm contraindication: liver dx Lines/Catheters [facility]from [facility] [place] Urinary Cath still in place: No Assessment/Plan Assessment/Plan 1. Possible adrenal insufficiency, started hydrocortisone on 09/22/2018, follow up with endocrinology 2. Ascites from alcoholic liver disease, s/p paracentesis with 4.5 liters on 09/17/2018, on lasix, add aldactone 3. Alcoholism with alcoholic liver disease, on thiamin/folic acid 4. Acute kidney injury, improved 5. DM, on ISS 6. Normocytic anemia, multifactorial, follow up with H/H 7. Thrombocytopenia, alcohol and ALD related, follow up with PLT Result Diagram: 09/23/18 0452 09/23/18 0452 Results 24hrs Laboratory Tests Test 09/22/18 17:35 09/22/18 20:25 09/23/18 04:52 09/23/18 08:24 Bedside Glucose 112 123 177 White Blood Count 9.0 Red Blood Count 2.76 L Hemoglobin 8.4 L Hematocrit 24.4 L Mean Corpuscular 88.4 Volume Mean Corpuscular 30.4 Hemoglobin Mean Corpuscular 34.4 Hemoglobin Concent Red Cell 14.5 Distribution Width Platelet Count 118 L Mean Platelet Volume 8.9 Immature 0.400 Granulocytes % Neutrophils % 70.9 Lymphocytes % 17.4 Monocytes % 10.0 Eosinophils % 0.4 Basophils % 0.9 Nucleated Red Blood 0.0 Cells % Immature 0.040 H Granulocytes # Neutrophils # 6.4 Lymphocytes # 1.6 Monocytes # 0.9 Eosinophils # 0.0 Basophils # 0.1 Nucleated Red Blood 0.0 Cells # Sodium Level 142 Potassium Level 4.5 Chloride Level 110 Carbon Dioxide Level 25 Anion Gap 7 Blood Urea Nitrogen 16 Creatinine 1.12 Est Glomerular > 60 Filtrat Rate mL/min Glucose Level 122 Calcium Level 9.0 Magnesium Level 1.8 Test 09/23/18 12:28 Bedside Glucose 153 Subjective 24 Hr Interval Summary Free Text/Dictation no pain. no dizziness. no fever Exam/Review of Systems Exam Vitals Vital Signs Date Temp Pulse Resp B/P (MAP) Pulse Ox O2 O2 Flow FiO2 Time Delivery Rate 09/23/18 98.6 92 14 96/56 (69) 96 Room Air 14:56 Intake and Output 09/22/18 09/22/18 09/23/18 1515:00 23:00 07:00 IntakeIntake Total 490 ml 400 ml OutputOutput Total 301 ml 1100 ml 1000 ml BalanceBalance 189 ml -1100 ml -600 ml Constitutional: alert, oriented, well developed Head: normocephalic, atraumatic Eyes: nl conjunctiva, EOMI, nl lids ENMT: nl external ears & nose, nl lips & teeth, nl nasal mucosa & septum Neck: supple, non-tender Respiratory: clear to auscultation, normal air movement; No congested cough, No crackles/rales, No diminished breath sounds, No intercostal retraction, No labored breathing, No respirations, No tactile fremitus, No wheezing, No other Cardiovascular: regular rate and rhythm, nl pulses; No bruits, No diastolic murmur, No edema, No gallop, No irregular rhythm, No jugular venous distention (JVD), No murmurs/extra sounds, No rub, No systolic murmur, No S3, No S4, No other Gastrointestinal: soft, nl liver, spleen Musculoskeletal: nl extremities to inspection Extremities: normal pulses; No calf tenderness, No cyanosis, No clubbing, No edema, No pitting pedal edema, No palpable cord, No tenderness, No other 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: [employer] II-XII intact, nl mental status, nl speech, nl strength Skin: nl turgor Results Results 24hrs Laboratory Tests Test 09/22/18 17:35 09/22/18 20:25 09/23/18 04:52 09/23/18 08:24 Bedside Glucose 112 123 177 White Blood Count 9.0 Red Blood Count 2.76 L Hemoglobin 8.4 L Hematocrit 24.4 L Mean Corpuscular 88.4 Volume Mean Corpuscular 30.4 Hemoglobin Mean Corpuscular 34.4 Hemoglobin Concent Red Cell 14.5 Distribution Width Platelet Count 118 L Mean Platelet Volume 8.9 Immature 0.400 Granulocytes % Neutrophils % 70.9 Lymphocytes % 17.4 Monocytes % 10.0 Eosinophils % 0.4 Basophils % 0.9 Nucleated Red Blood 0.0 Cells % Immature 0.040 H Granulocytes # Neutrophils # 6.4 Lymphocytes # 1.6 Monocytes # 0.9 Eosinophils # 0.0 Basophils # 0.1 Nucleated Red Blood 0.0 Cells # Sodium Level 142 Potassium Level 4.5 Chloride Level 110 Carbon Dioxide Level 25 Anion Gap 7 Blood Urea Nitrogen 16 Creatinine 1.12 Est Glomerular > 60 Filtrat Rate mL/min Glucose Level 122 Calcium Level 9.0 Magnesium Level 1.8 Test 09/23/18 12:28 Bedside Glucose 153 Medications Medication Current Medications IV Flush (NS 3 ml) 3 ml PER PROTOCOL IV ; Start 09/17/18 at 03:30 Ondansetron HCl (Zofran Inj) 4 mg Q6H PRN IV NAUSEA/VOMITING; Start 09/17/18 at 03:30 Acetaminophen (Tylenol Tab) 650 mg Q6H PRN PO .PAIN 1-3 OR TEMP Last administered on 09/20/18at 05:27; Admin Dose 650 MG; Start 09/17/18 at 03:30 Albuterol/ Ipratropium (Duoneb) 3 ml Q2H RESP THERAPY PRN HHN SHORTNESS OF BREATH; Start 09/17/18 at 03:30 Ferrous Sulfate (Ferrous Sulfate (Ec)) 325 mg DAILY PO Last administered on 09/23/18at 08:29; Admin Dose 325 MG; Start 09/17/18 at 09:00 Lorazepam (Ativan) 1 mg Q12H PRN PO ANXIETY; Start 09/17/18 at 03:30 Potassium Chloride (Klor-Con 20) 60 meq DAILY PO Last administered on 09/23/18at 08:28; Admin Dose 60 MEQ; Start 09/17/18 at 09:00 Thiamine HCl (Vitamin B1) 100 mg DAILY PO Last administered on 09/23/18at 08:29; Admin Dose 100 MG; Start 09/17/18 at 14:30 Diagnostic Test (Pha) (Accu-Chek) 1 ea 02 XX ; Start 09/18/18 at 02:00 Insulin Aspart (Novolog Insulin Pen) NOVOLOG *MILD* ALGORITHM WITH MEALS BEDTIME SC Last administered on 09/23/18at 12:39; Admin Dose 1 UNIT; Start 09/17/18 at 17:55 Miscellaneous Information 1 ea NOTE XX ; Start 09/17/18 at 14:30 Glucose (Glutose) 15 gm Q15M PRN PO DECREASED GLUCOSE; Start 09/17/18 at 14:30 Glucose (Glutose) 22.5 gm Q15M PRN PO DECREASED GLUCOSE; Start 09/17/18 at 14:30 Dextrose (D50w Syringe) 25 ml Q15M PRN IV DECREASED GLUCOSE; Start 09/17/18 at 14:30 Dextrose (D50w Syringe) 50 ml Q15M PRN IV DECREASED GLUCOSE; Start 09/17/18 at 14:30 Glucagon (Glucagen) 1 mg Q15M PRN IM DECREASED GLUCOSE; Start 09/17/18 at 14:30 Glucose (Glutose) 15 gm Q15M PRN BUCCAL DECREASED GLUCOSE; Start 09/17/18 at 14:30 Magnesium Oxide (Mag-Ox 400) 400 mg TID PO Last administered on 09/23/18at 12:39; Admin Dose 400 MG; Start 09/19/18 at 21:00 Famotidine (Pepcid) 20 mg HS PO Last administered on 09/22/18at 20:24; Admin Dose 20 MG; Start 09/19/18 at 21:00 Folic Acid (Folic Acid) 1 mg DAILY PO Last administered on 09/23/18at 08:29; Admin Dose 1 MG; Start 09/21/18 at 09:00 Furosemide (Lasix) 20 mg DAILY PO Last administered on 09/23/18 08:30; Admin Dose 20 MG; Start 09/21/18 at 15:00 Spironolactone (Aldactone) 50 mg DAILY PO Last administered on 09/23/18 08:30; Admin Dose 50 MG; Start 09/22/18 at 17:30 Hydrocortisone (Cortef) 20 mg DAILY@0700 PO Last administered on 09/23/18at 06:39; Admin Dose 20 MG; Start 09/23/18 at 07:00 Hydrocortisone (Cortef) 10 mg DAILY@1700 PO Last administered on 09/22/18at 18:41; Admin Dose 10 MG; Start 09/22/18 at 18:00 ANGEL BATISTA MD Sep 23, 2018 15:26
[2018-09-23] MEDS: HYDROCORTISONE 5 MG TAB PO SCH (17:48)
[2018-09-23 19:30] VITALS: BP 92/59; PULSE 97; RESP 20
--- NOTE | 2018-09-23 20:01 | CONS ---
Assessment/Plan Assessment/Plan Problems: (1) Low serum cortisol level Status: Acute Comment: Pt. w/ no clinical indicators of improvement w/ addition of hydrocortisone. BP has not changed at all. Electrolytes and blood counts the same. However, pt. does feel a little better. Will continue on steroid rep lacement for now. Before d/c would reduce dose of hydrocortisone to 10 qam, 5 qpm. (2) Type 2 diabetes mellitus without complications Status: Chronic Comment: BG slightly above goal today now on hydrocortisone. Will resume metformin 500 mg bid. Consultation Date/Type/Reason Admit Date/Time Sep 17, 2018 at 05:48 Initial Consult Date 09/22/18 Type of Consult Endocrinology Reason for Consultation Possible adrenal insufficiency Requesting Provider: ANGEL BATISTA MD Date/Time of Note DATE: 09/23/18 TIME: 19:57 24 HR Interval Summary Constitutional: no complaints, improved (pt. feels stronger, more energetic) Detailed Summary Respiratory: no complaints Cardiovascular: no complaints Gastrointestinal: no complaints Genitourinary: no complaints Musculoskeletal: no complaints Neurologic: no complaints Exam/Review of Systems Exam Vitals VS - Last 72 Hours, by Label Date Temp Pulse Resp B/P (MAP) Pulse Ox O2 O2 Flow FiO2 Time Delivery Rate 09/23/18 98.6 92 14 96/56 (69) 96 Room Air 14:56 09/23/18 98.7 98 14 96/65 (75) 99 Room Air 07:15 09/23/18 98.9 95 18 100/61 98 02:05 (74) 09/22/18 99.3 92 20 106/65 98 19:15 (79) 09/22/18 97.3 89 18 106/65 98 Room Air 15:12 (79) 09/22/18 97.6 97 18 96/63 (74) 99 Room Air 08:00 09/22/18 99.6 107 18 98/66 (77) 96 Room Air 01:40 09/21/18 99.5 105 18 105/64 96 Room Air 20:21 (78) 09/21/18 98.1 88 20 98/62 (74) 96 14:38 09/21/18 98.2 101 19 101/68 97 07:25 (79) 09/21/18 99.2 107 18 99/72 (81) 94 Room Air 01:56 09/20/18 99.7 21:00 Vital Signs Date Temp Pulse Resp B/P (MAP) Pulse Ox O2 O2 Flow FiO2 Time Delivery Rate 09/23/18 98.6 92 14 96/56 (69) 96 Room Air 14:56 Intake and Output 09/22/18 09/22/18 09/23/18 1515:00 23:00 07:00 IntakeIntake Total 490 ml 400 ml OutputOutput Total 301 ml 1100 ml 1000 ml BalanceBalance 189 ml -1100 ml -600 ml Constitutional: alert, oriented, well developed Psych: no complaints, nl mood/affect Respiratory: clear to auscultation, normal air movement Cardiovascular: regular rate and rhythm, nl pulses; No edema, No murmurs/extra sounds, No rub Gastrointestinal: soft, nl liver, spleen, non-tender, ascites, bowel sounds; No mass, No rebound or guarding Musculoskeletal: nl extremities to inspection Extremities: normal pulses; No cyanosis, No clubbing, No edema 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: 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 LEADER II-XII 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, nl mental status, nl speech, nl strength Additional Comments Bedside Glucose - 72 Hours Test 09/20/18 20:35 09/21/18 08:27 09/21/18 12:31 09/21/18 17:30 Bedside 132 112 122 134 Glucose mg/dL (70-220) mg/dL (70-220) mg/dL (70-220) mg/dL (70-220) Test 09/21/18 20:08 09/22/18 08:33 09/22/18 12:48 09/22/18 17:35 Bedside 119 88 108 112 Glucose mg/dL (70-220) mg/dL (70-220) mg/dL (70-220) mg/dL (70-220) Test 09/22/18 20:25 09/23/18 08:24 09/23/18 12:28 09/23/18 17:47 Bedside 123 177 153 185 Glucose mg/dL (70-220) mg/dL (70-220) mg/dL (70-220) mg/dL (70-220) Results Result Diagram: 09/23/18 0452 09/23/18 0452 Results 24hrs Laboratory Tests Test 09/22/18 20:25 09/23/18 04:52 09/23/18 08:24 09/23/18 12:28 Bedside Glucose 123 177 153 White Blood Count 9.0 Red Blood Count 2.76 L Hemoglobin 8.4 L Hematocrit 24.4 L Mean Corpuscular 88.4 Volume Mean Corpuscular 30.4 Hemoglobin Mean Corpuscular 34.4 Hemoglobin Concent Red Cell 14.5 Distribution Width Platelet Count 118 L Mean Platelet Volume 8.9 Immature 0.400 Granulocytes % Neutrophils % 70.9 Lymphocytes % 17.4 Monocytes % 10.0 Eosinophils % 0.4 Basophils % 0.9 Nucleated Red Blood 0.0 Cells % Immature 0.040 H Granulocytes # Neutrophils # 6.4 Lymphocytes # 1.6 Monocytes # 0.9 Eosinophils # 0.0 Basophils # 0.1 Nucleated Red Blood 0.0 Cells # Sodium Level 142 Potassium Level 4.5 Chloride Level 110 Carbon Dioxide Level 25 Anion Gap 7 Blood Urea Nitrogen 16 Creatinine 1.12 Est Glomerular > 60 Filtrat Rate mL/min Glucose Level 122 Calcium Level 9.0 Magnesium Level 1.8 Test 09/23/18 17:47 Bedside Glucose 185 Medications Medication Current Medications IV Flush (NS 3 ml) 3 ml PER PROTOCOL IV ; Start 09/17/18 at 03:30 Ondansetron HCl (Zofran Inj) 4 mg Q6H PRN IV NAUSEA/VOMITING; Start 09/17/18 at 03:30 Acetaminophen (Tylenol Tab) 650 mg Q6H PRN PO .PAIN 1-3 OR TEMP Last administered on 09/20/18at 05:27; Admin Dose 650 MG; Start 09/17/18 at 03:30 Albuterol/ Ipratropium (Duoneb) 3 ml Q2H RESP THERAPY PRN HHN SHORTNESS OF BREATH; Start 09/17/18 at 03:30 Ferrous Sulfate (Ferrous Sulfate (Ec)) 325 mg DAILY PO Last administered on 09/23/18at 08:29; Admin Dose 325 MG; Start 09/17/18 at 09:00 Lorazepam (Ativan) 1 mg Q12H PRN PO ANXIETY; Start 09/17/18 at 03:30 Potassium Chloride (Klor-Con 20) 60 meq DAILY PO Last administered on 09/23/18at 08:28; Admin Dose 60 MEQ; Start 09/17/18 at 09:00 Thiamine HCl (Vitamin B1) 100 mg DAILY PO Last administered on 09/23/18at 08:29; Admin Dose 100 MG; Start 09/17/18 at 14:30 Diagnostic Test (Pha) (Accu-Chek) 1 ea 02 XX ; Start 09/18/18 at 02:00 Insulin Aspart (Novolog Insulin Pen) NOVOLOG *MILD* ALGORITHM WITH MEALS BEDTIME SC Last administered on 09/23/18at 17:49; Admin Dose 2 UNIT; Start 09/17/18 at 17:55 Miscellaneous Information 1 ea NOTE XX ; Start 09/17/18 at 14:30 Glucose (Glutose) 15 gm Q15M PRN PO DECREASED GLUCOSE; Start 09/17/18 at 14:30 Glucose (Glutose) 22.5 gm Q15M PRN PO DECREASED GLUCOSE; Start 09/17/18 at 14:30 Dextrose (D50w Syringe) 25 ml Q15M PRN IV DECREASED GLUCOSE; Start 09/17/18 at 14:30 Dextrose (D50w Syringe) 50 ml Q15M PRN IV DECREASED GLUCOSE; Start 09/17/18 at 14:30 Glucagon (Glucagen) 1 mg Q15M PRN IM DECREASED GLUCOSE; Start 09/17/18 at 14:30 Glucose (Glutose) 15 gm Q15M PRN BUCCAL DECREASED GLUCOSE; Start 09/17/18 at 14:30 Magnesium Oxide (Mag-Ox 400) 400 mg TID PO Last administered on 09/23/18at 12:39; Admin Dose 400 MG; Start 09/19/18 at 21:00 Famotidine (Pepcid) 20 mg HS PO Last administered on 09/22/18at 20:24; Admin Dose 20 MG; Start 09/19/18 at 21:00 Folic Acid (Folic Acid) 1 mg DAILY PO Last administered on 09/23/18at 08:29; Admin Dose 1 MG; Start 09/21/18 at 09:00 Furosemide (Lasix) 20 mg DAILY PO Last administered on 09/23/18at 08:30; Admin Dose 20 MG; Start 09/21/18 at 15:00 Spironolactone (Aldactone) 50 mg DAILY PO Last administered on 09/23/18at 08:30; Admin Dose 50 MG; Start 09/22/18 at 17:30 Hydrocortisone (Cortef) 20 mg DAILY@0700 PO Last administered on 09/23/18at 06:39; Admin Dose 20 MG; Start 09/23/18 at 07:00 Hydrocortisone (Cortef) 10 mg DAILY@1700 PO Last administered on 09/23/18at 17:48; Admin Dose 10 MG; Start 09/22/18 at 18:00 DELIO CESPEDES MD Sep 23, 2018 20:01
[2018-09-23] MEDS: FAMOTIDINE 20 MG TAB PO SCH (20:35)
[2018-09-24] MEDS: ACCU-CHEK XX SCH (01:58)
[2018-09-24 02:15] VITALS: BP 105/64; PULSE 84; RESP 20
[2018-09-24] MEDS: HYDROCORTISONE 20 MG TAB PO SCH (07:02)
[2018-09-24] MEDS: INSULIN ASPART [NOVOLOG] 3 ML PEN SC SCH ×4 (07:50→21:00)
[2018-09-24 07:52] VITALS: BP 112/62; PULSE 78; RESP 19
--- NOTE | 2018-09-24 08:17 | PN ---
DATE: 09/24/2018 SUBJECTIVE: The patient is stable. No events overnight. No fevers, chills, nausea or vomiting. VITAL SIGNS: Blood pressure is 105/64, respirations 20, pulse 84, temperature 98.1. HEENT: Head is normocephalic. NECK: Supple. HEART: Regular rate. LUNGS: Show diminished breath sounds at the base. ABDOMEN: Soft, nontender to palpation without rebound or guarding. EXTREMITIES: Negative for clubbing, cyanosis, no edema. DERMATOLOGIC: No rashes. MUSCULOSKELETAL: No joint effusion. NEUROLOGIC: No change in exam. MEDICATIONS: The patient's medications have been reviewed. LABORATORY DATA: Has been reviewed. IMAGING STUDIES: Have been reviewed. ASSESSMENT AND PLAN: 1. Nonoliguric acute kidney injury with previously normal baseline creatinine. Etiology of TORIBIO is s econdary to hemodynamics, diuretic therapy. The patient's creatinine has increased in the last 24 ho urs. Monitor closely on current diuretic regimen. May consider de-escalation of diuretics if renal function should further decline. 2. Mineral bone disorder. Monitor calcium and phosphorus levels. 3. Hypokalemia, resolved. 4. Decompensated cirrhosis. The patient is status post paracentesis. Continue medical management. Continue diuretic therapy, monitor renal function and electrolytes closely. 5. Hypotension, improved. 6. Questionable adrenal insufficiency. The patient has been placed on a trial of Cortef. Follow up with endocrinology. 7. Diabetes. Continue current insulin regimen. 8. Hypomagnesemia. Continue to monitor and replete as needed. 9. History of ETOH abuse. Continue thiamine, and folic acid. 10. Thrombocytopenia secondary to cirrhosis. Continue to monitor. Dictated By: EMILY CARLSON DO NR/NTS Conf#: [id number] DID#: [id number] CC: LUCIANO HORNE MD; CIRO MEI MD; ANGEL BATISTA MD;*[facility]*
[2018-09-24] MEDS: MAGNESIUM OXIDE 400 MG TAB PO SCH ×3 (08:50→20:46)
[2018-09-24] MEDS: metFORMIN 500 MG TAB PO SCH ×2 (08:50→17:27)
[2018-09-24] MEDS: POTASSIUM CHLORIDE (SR) 20 MEQ TAB PO SCH (08:50)
[2018-09-24] MEDS: SPIRONOLACTONE 50 MG TAB PO SCH (08:50)
[2018-09-24] MEDS: FERROUS SULFATE (EC) 325 MG TAB PO SCH (08:50)
[2018-09-24] MEDS: THIAMINE 100 MG TAB PO SCH (08:51)
[2018-09-24] MEDS: FOLIC ACID 1 MG TAB PO SCH (08:51)
[2018-09-24] MEDS: FUROSEMIDE 20 MG TAB PO SCH (08:51)
--- NOTE | 2018-09-24 13:14 | PN ---
Date/Time of Note Date/Time of Note DATE: 09/24/18 TIME: 13:10 Assessment/Plan VTE Prophylaxis Risk score ([place] [facility] [place] risk: 1 SCD applied (from [facility] [place] Yes Pharmacological prophylaxis: other Pharm contraindication: liver dx Lines/Catheters IV Catheter Type (from [facility]): [place] Urinary Cath still in place: No Assessment/Plan Assessment/Plan 1. Adrenal insufficiency, started hydrocortisone on 09/22/2018, adjust dosage, follow up with endocrinology 2. Ascites from alcoholic liver disease, s/p paracentesis with 4.5 liters on 09/17/2018, on lasix, add aldactone 3. Alcoholism with alcoholic liver disease, on thiamin/folic acid 4. Acute kidney injury, Cr is climbing up, follow up with Cr, adjust diuretics as needed 5. DM, on metformin and ISS 6. Normocytic anemia, multifactorial, follow up with H/H 7. Thrombocytopenia, alcohol and ALD related, follow up with PLT Result Diagram: 09/23/18 0452 09/24/18 0447 Results 24hrs Laboratory Tests Test 09/23/18 17:47 09/23/18 20:35 09/24/18 04:47 09/24/18 08:35 Bedside Glucose 185 130 107 Sodium Level 144 Potassium Level 3.9 Chloride Level 111 H Carbon Dioxide Level 24 Anion Gap 9 Blood Urea Nitrogen 21 H Creatinine 1.32 H Est Glomerular > 60 Filtrat Rate mL/min Glucose Level 121 Calcium Level 9.1 Test 09/24/18 12:31 Bedside Glucose 243 H Subjective 24 Hr Interval Summary Free Text/Dictation stronger Exam/Review of Systems Exam Vitals Vital Signs Date Temp Pulse Resp B/P (MAP) Pulse Ox O2 O2 Flow FiO2 Time Delivery Rate 09/24/18 98.1 78 19 112/62 98 07:52 (79) 09/24/18 Room Air 02:15 Intake and Output 09/23/18 09/23/18 09/24/18 1515:00 23:00 07:00 IntakeIntake Total 700 ml 300 ml BalanceBalance 700 ml 300 ml Constitutional: alert, oriented, well developed Psych: no complaints, nl mood/affect Head: normocephalic, atraumatic Eyes: nl conjunctiva, EOMI, nl lids ENMT: nl external ears & nose, nl lips & teeth, nl nasal mucosa & septum Neck: supple, non-tender Respiratory: clear to auscultation, normal air movement; No congested cough, No crackles/rales, No diminished breath sounds, No intercostal retraction, No labored breathing, No respirations, No tactile fremitus, No wheezing, No other Cardiovascular: regular rate and rhythm, nl pulses; No bruits, No diastolic murmur, No edema, No gallop, No irregular rhythm, No jugular venous distention (JVD), No murmurs/extra sounds, No rub, No systolic murmur, No S3, No S4, No other Gastrointestinal: soft, nl liver, spleen Musculoskeletal: nl extremities to inspection Extremities: normal pulses; No calf tenderness, No cyanosis, No clubbing, No edema, No pitting pedal edema, No palpable cord, No tenderness, No other 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: 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 PLANT MANAGER II-XII 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, nl mental status, nl speech, nl strength Skin: nl turgor Results Results 24hrs Laboratory Tests Test 09/23/18 17:47 09/23/18 20:35 09/24/18 04:47 09/24/18 08:35 Bedside Glucose 185 130 107 Sodium Level 144 Potassium Level 3.9 Chloride Level 111 H Carbon Dioxide Level 24 Anion Gap 9 Blood Urea Nitrogen 21 H Creatinine 1.32 H Est Glomerular > 60 Filtrat Rate mL/min Glucose Level 121 Calcium Level 9.1 Test 09/24/18 12:31 Bedside Glucose 243 H Medications Medication Current Medications IV Flush (NS 3 ml) 3 ml PER PROTOCOL IV ; Start 09/17/18 at 03:30 Ondansetron HCl (Zofran Inj) 4 mg Q6H PRN IV NAUSEA/VOMITING; Start 09/17/18 at 03:30 Acetaminophen (Tylenol Tab) 650 mg Q6H PRN PO .PAIN 1-3 OR TEMP Last administered on 09/20/18at 05:27; Admin Dose 650 MG; Start 09/17/18 at 03:30 Albuterol/ Ipratropium (Duoneb) 3 ml Q2H RESP THERAPY PRN HHN SHORTNESS OF BREATH; Start 09/17/18 at 03:30 Ferrous Sulfate (Ferrous Sulfate (Ec)) 325 mg DAILY PO Last administered on 09/24/18at 08:50; Admin Dose 325 MG; Start 09/17/18 at 09:00 Lorazepam (Ativan) 1 mg Q12H PRN PO ANXIETY; Start 09/17/18 at 03:30 Potassium Chloride (Klor-Con 20) 60 meq DAILY PO Last administered on 09/24/18at 08:50; Admin Dose 60 MEQ; Start 09/17/18 at 09:00 Thiamine HCl (Vitamin B1) 100 mg DAILY PO Last administered on 09/24/18 08:51; Admin Dose 100 MG; Start 09/17/18 at 14:30 Diagnostic Test (Pha) (Accu-Chek) 1 ea 02 XX ; Start 09/18/18 at 02:00 Insulin Aspart (Novolog Insulin Pen) NOVOLOG *MILD* ALGORITHM WITH MEALS BEDTIME SC Last administered on 09/24/18 12:56; Admin Dose 3 UNIT; Start 09/17/18 at 17:55 Miscellaneous Information 1 ea NOTE XX ; Start 09/17/18 at 14:30 Glucose (Glutose) 15 gm Q15M PRN PO DECREASED GLUCOSE; Start 09/17/18 at 14:30 Glucose (Glutose) 22.5 gm Q15M PRN PO DECREASED GLUCOSE; Start 09/17/18 at 14:30 Dextrose (D50w Syringe) 25 ml Q15M PRN IV DECREASED GLUCOSE; Start 09/17/18 at 14:30 Dextrose (D50w Syringe) 50 ml Q15M PRN IV DECREASED GLUCOSE; Start 09/17/18 at 14:30 Glucagon (Glucagen) 1 mg Q15M PRN IM DECREASED GLUCOSE; Start 09/17/18 at 14:30 Glucose (Glutose) 15 gm Q15M PRN BUCCAL DECREASED GLUCOSE; Start 09/17/18 at 14:30 Magnesium Oxide (Mag-Ox 400) 400 mg TID PO Last administered on 09/24/18at 12:56; Admin Dose 400 MG; Start 09/19/18 at 21:00 Famotidine (Pepcid) 20 mg HS PO Last administered on 09/23/18at 20:35; Admin Dose 20 MG; Start 09/19/18 at 21:00 Folic Acid (Folic Acid) 1 mg DAILY PO Last administered on 09/24/18 08:51; Admin Dose 1 MG; Start 09/21/18 at 09:00 Furosemide (Lasix) 20 mg DAILY PO Last administered on 09/24/18 08:51; Admin Dose 20 MG; Start 09/21/18 at 15:00 Spironolactone (Aldactone) 50 mg DAILY PO Last administered on 09/24/18 08:50; Admin Dose 50 MG; Start 09/22/18 at 17:30 Hydrocortisone (Cortef) 20 mg DAILY@0700 PO Last administered on 09/24/18at 07:02; Admin Dose 20 MG; Start 09/23/18 at 07:00 Hydrocortisone (Cortef) 10 mg DAILY@1700 PO Last administered on 09/23/18at 17:48; Admin Dose 10 MG; Start 09/22/18 at 18:00 Metformin HCl (Glucophage) 500 mg BID WITH MEALS PO Last administered on 09/24/18 08:50; Admin Dose 500 MG; Start 09/24/18 at 07:50 ANGEL BATISTA MD Sep 24, 2018 13:14
[2018-09-24 14:06] VITALS: BP 103/64; PULSE 76; RESP 18
[2018-09-24] MEDS: HYDROCORTISONE 5 MG TAB PO SCH (17:29)
--- NOTE | 2018-09-24 18:03 | CONS ---
Assessment/Plan Assessment/Plan Problems: (1) Low serum cortisol level Status: Acute Comment: BP slightly higher today. Now w/ raegan hyperglycemia. Pt. w/ clinical improvement w/ hydrocortisone. Likely will be able to wean from 20 qam/10 qpm to 10/5 before d/c but pt. likely has real adrenal insufficiency based on clinical response. Would continue. (2) Type 2 diabetes mellitus without complications Status: Chronic Comment: BG elevated. Cont. metformin. Add linagliptin and empagliflozin. Monitor glucose. Consultation Date/Type/Reason Admit Date/Time Sep 17, 2018 at 05:48 Initial Consult Date 09/22/18 Type of Consult Endocrinology Reason for Consultation R/o adrenal insufficiency Requesting Provider: ANGEL BATISTA MD Date/Time of Note DATE: 09/24/18 TIME: 18:00 24 HR Interval Summary Constitutional: no complaints, improved (feels significantly better last 48 hours since starting hydrocortisone) Detailed Summary Respiratory: no complaints Cardiovascular: no complaints Gastrointestinal: no complaints Genitourinary: no complaints Musculoskeletal: no complaints Neurologic: no complaints Exam/Review of Systems Exam Vitals VS - Last 72 Hours, by Label Date Temp Pulse Resp B/P (MAP) Pulse Ox O2 O2 Flow FiO2 Time Delivery Rate 09/24/18 98.3 76 18 103/64 98 Room Air 14:06 (77) 09/24/18 98.1 78 19 112/62 98 07:52 (79) 09/24/18 98.1 84 20 105/64 95 Room Air 02:15 (78) 09/23/18 98.1 97 20 92/59 (70) 96 Room Air 19:30 09/23/18 98.6 92 14 96/56 (69) 96 Room Air 14:56 09/23/18 98.7 98 14 96/65 (75) 99 Room Air 07:15 09/23/18 98.9 95 18 100/61 98 02:05 (74) 09/22/18 99.3 92 20 106/65 98 19:15 (79) 09/22/18 97.3 89 18 106/65 98 Room Air 15:12 (79) 09/22/18 97.6 97 18 96/63 (74) 99 Room Air 08:00 09/22/18 99.6 107 18 98/66 (77) 96 Room Air 01:40 09/21/18 99.5 105 18 105/64 96 Room Air 20:21 (78) Vital Signs Date Temp Pulse Resp B/P (MAP) Pulse Ox O2 O2 Flow FiO2 Time Delivery Rate 09/24/18 98.3 76 18 103/64 98 Room Air 14:06 (77) Intake and Output 09/23/18 09/23/18 09/24/18 1515:00 23:00 07:00 IntakeIntake Total 700 ml 300 ml BalanceBalance 700 ml 300 ml Constitutional: alert, oriented, well developed Psych: no complaints, nl mood/affect Respiratory: clear to auscultation, normal air movement Cardiovascular: regular rate and rhythm, nl pulses; No edema, No murmurs/extra sounds, No rub Gastrointestinal: soft, nl liver, spleen, non-tender, ascites, bowel sounds; No mass, No rebound or guarding Musculoskeletal: nl extremities to inspection Extremities: normal pulses; No cyanosis, No clubbing, No edema 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: CLINICAL PHLEBOTOMIST II-XII intact, nl mental status, nl speech, nl strength Additional Comments Bedside Glucose - 72 Hours Test 09/21/18 20:08 09/22/18 08:33 09/22/18 12:48 09/22/18 17:35 Bedside 119 88 108 112 Glucose mg/dL (70-220) mg/dL (70-220) mg/dL (70-220) mg/dL (70-220) Test 09/22/18 20:25 09/23/18 08:24 09/23/18 12:28 09/23/18 17:47 Bedside 123 177 153 185 Glucose mg/dL (70-220) mg/dL (70-220) mg/dL (70-220) mg/dL (70-220) Test 09/23/18 20:35 09/24/18 08:35 09/24/18 12:31 Bedside 130 107 243 Glucose mg/dL (70-220) mg/dL (70-220) mg/dL (70-220) H Results Result Diagram: 09/23/18 0452 09/24/18 0447 Results 24hrs Laboratory Tests Test 09/23/18 20:35 09/24/18 04:47 09/24/18 08:35 09/24/18 12:31 Bedside Glucose 130 107 243 H Sodium Level 144 Potassium Level 3.9 Chloride Level 111 H Carbon Dioxide Level 24 Anion Gap 9 Blood Urea Nitrogen 21 H Creatinine 1.32 H Est Glomerular > 60 Filtrat Rate mL/min Glucose Level 121 Calcium Level 9.1 Medications Medication Current Medications IV Flush (NS 3 ml) 3 ml PER PROTOCOL IV ; Start 09/17/18 at 03:30 Ondansetron HCl (Zofran Inj) 4 mg Q6H PRN IV NAUSEA/VOMITING; Start 09/17/18 at 03:30 Acetaminophen (Tylenol Tab) 650 mg Q6H PRN PO .PAIN 1-3 OR TEMP Last administered on 09/20/18at 05:27; Admin Dose 650 MG; Start 09/17/18 at 03:30 Albuterol/ Ipratropium (Duoneb) 3 ml Q2H RESP THERAPY PRN HHN SHORTNESS OF BREATH; Start 09/17/18 at 03:30 Ferrous Sulfate (Ferrous Sulfate (Ec)) 325 mg DAILY PO Last administered on 09/24/18at 08:50; Admin Dose 325 MG; Start 09/17/18 at 09:00 Lorazepam (Ativan) 1 mg Q12H PRN PO ANXIETY; Start 09/17/18 at 03:30 Potassium Chloride (Klor-Con 20) 60 meq DAILY PO Last administered on 09/24/18at 08:50; Admin Dose 60 MEQ; Start 09/17/18 at 09:00 Thiamine HCl (Vitamin B1) 100 mg DAILY PO Last administered on 09/24/18at 08:51; Admin Dose 100 MG; Start 09/17/18 at 14:30 Diagnostic Test (Pha) (Accu-Chek) 1 ea 02 XX ; Start 09/18/18 at 02:00 Insulin Aspart (Novolog Insulin Pen) NOVOLOG *MILD* ALGORITHM WITH MEALS BEDTIME SC Last administered on 09/24/18at 12:56; Admin Dose 3 UNIT; Start 09/17/18 at 17:55 Miscellaneous Information 1 ea NOTE XX ; Start 09/17/18 at 14:30 Glucose (Glutose) 15 gm Q15M PRN PO DECREASED GLUCOSE; Start 09/17/18 at 14:30 Glucose (Glutose) 22.5 gm Q15M PRN PO DECREASED GLUCOSE; Start 09/17/18 at 14:30 Dextrose (D50w Syringe) 25 ml Q15M PRN IV DECREASED GLUCOSE; Start 09/17/18 at 14:30 Dextrose (D50w Syringe) 50 ml Q15M PRN IV DECREASED GLUCOSE; Start 09/17/18 at 14:30 Glucagon (Glucagen) 1 mg Q15M PRN IM DECREASED GLUCOSE; Start 09/17/18 at 14:30 Glucose (Glutose) 15 gm Q15M PRN BUCCAL DECREASED GLUCOSE; Start 09/17/18 at 14:30 Magnesium Oxide (Mag-Ox 400) 400 mg TID PO Last administered on 09/24/18 12:56; Admin Dose 400 MG; Start 09/19/18 at 21:00 Famotidine (Pepcid) 20 mg HS PO Last administered on 09/23/18 20:35; Admin Dose 20 MG; Start 09/19/18 at 21:00 Folic Acid (Folic Acid) 1 mg DAILY PO Last administered on 09/24/18 08:51; Admin Dose 1 MG; Start 09/21/18 at 09:00 Furosemide (Lasix) 20 mg DAILY PO Last administered on 09/24/18 08:51; Admin D ose 20 MG; Start 09/21/18 at 15:00 Spironolactone (Aldactone) 50 mg DAILY PO Last administered on 09/24/18 08:50; Admin Dose 50 MG; Start 09/22/18 at 17:30 Hydrocortisone (Cortef) 20 mg DAILY@0700 PO Last administered on 09/24/18 07:02; Admin Dose 20 MG; Start 09/23/18 at 07:00 Hydrocortisone (Cortef) 10 mg DAILY@1700 PO Last administered on 09/24/18 17:29; Admin Dose 10 MG; Start 09/22/18 at 18:00 Metformin HCl (Glucophage) 500 mg BID WITH MEALS PO Last administered on 09/24/18 17:27; Admin Dose 500 MG; Start 09/24/18 at 07:50 DELIO CESPEDES MD Sep 24, 2018 18:03
[2018-09-24 19:20] VITALS: BP 109/75; PULSE 76; RESP 20
[2018-09-24] MEDS: FAMOTIDINE 20 MG TAB PO SCH (20:46)
[2018-09-25] MEDS: ACCU-CHEK XX SCH ×2 (02:00→20:21)
[2018-09-25 02:05] VITALS: BP 101/64; PULSE 84; RESP 20
--- NOTE | 2018-09-25 06:09 | CONS ---
Consult Date/Type/Reason Admit Date/Time Sep 17, 2018 at 05:48 Initial Consult Date 09/22/18 Requesting Provider: ANGEL BATISTA MD Date/Time of Note DATE: 09/25/18 TIME: 06:06 Subjective The patient is stable. No events overnight. No fevers, chills, nausea or vomiting. reportedly improved on steroids. continues good uo. POC Reviewed with dr. south HEENT: Head is normocephalic. NECK: Supple. HEART: Regular rate. LUNGS: Show diminished breath sounds at the base. ABDOMEN: Soft, nontender to palpation without rebound or guarding. EXTREMITIES: Negative for clubbing, cyanosis, no edema. DERMATOLOGIC: No rashes. MUSCULOSKELETAL: No joint effusion. NEUROLOGIC: No change in exam. Objective Vitals Vital Signs Date Temp Pulse Resp B/P (MAP) Pulse Ox O2 O2 Flow FiO2 Time Delivery Rate 09/25/18 98.8 84 20 101/64 98 Room Air 02:05 (76) Results/Medications Result Diagram: 09/23/18 0452 09/25/18 0433 Results 24 hrs Laboratory Tests Test 09/24/18 08:35 09/24/18 12:31 09/24/18 20:47 09/25/18 04:33 Bedside Glucose 107 243 H 166 Sodium Level 143 Potassium Level 3.8 Chloride Level 111 H Carbon Dioxide Level 25 Anion Gap 7 Blood Urea Nitrogen 23 H Creatinine 1.14 Est Glomerular > 60 Filtrat Rate mL/min Glucose Level 147 Calcium Level 8.9 Phosphorus Level 3.1 Magnesium Level 1.8 Home Meds Active Scripts Levofloxacin* (Levofloxacin*) 750 Mg Tablet, 750 MG PO DAILY for 30 Days, #30 TAB Prov:JONN SEAY MD 09/07/18 Metformin* (Glucophage*) 500 Mg Tab, 500 MG PO BID WITH MEALS, #90 TAB 2 Refills Prov:JONN SEAY MD 09/07/18 Linagliptin (TRADJENTA) 5 Mg Tablet, 5 MG PO DAILY, #90 TAB 1 Refill Prov:JONN SEAY MD 09/07/18 Empagliflozin (Jardiance) 10 Mg Tablet, 25 MG PO DAILY@08, #90 TAB 1 Refill Prov:JONN SEAY MD 09/07/18 Magnesium Oxide* (Mag-Oxide*) 400 Mg Tablet, 400 MG PO DAILY, #60 TAB 2 Refills Prov:JONN SEAY MD 09/07/18 Potassium Chloride* (K-Dur*) 20 Meq Tab.prt.sr, 60 MEQ PO DAILY, #90 TAB 2 Refills Prov:OJNN SEAY MD 09/07/18 Reported Medications Ferrous Sulfate* (Ferrous Sulfate*) 325 Mg Tabec, 325 MG PO DAILY, TAB 08/25/18 Lorazepam* (Lorazepam*) 1 Mg Tablet, 1 MG PO Q12H PRN for ANXIETY for 15 Days, #30 08/25/18 Cholecalciferol* (Vitamin D*) 400 Unit Tablet, 800 UNIT PO DAILY, TAB 06/24/17 Medications Current Medications IV Flush (NS 3 ml) 3 ml PER PROTOCOL IV ; Start 09/17/18 at 03:30 Ondansetron HCl (Zofran Inj) 4 mg Q6H PRN IV NAUSEA/VOMITING; Start 09/17/18 at 03:30 Acetaminophen (Tylenol Tab) 650 mg Q6H PRN PO .PAIN 1-3 OR TEMP Last administered on 09/20/18at 05:27; Admin Dose 650 MG; Start 09/17/18 at 03:30 Albuterol/ Ipratropium (Duoneb) 3 ml Q2H RESP THERAPY PRN HHN SHORTNESS OF BREATH; Start 09/17/18 at 03:30 Ferrous Sulfate (Ferrous Sulfate (Ec)) 325 mg DAILY PO Last administered on 09/24/18at 08:50; Admin Dose 325 MG; Start 09/17/18 at 09:00 Lorazepam (Ativan) 1 mg Q12H PRN PO ANXIETY; Start 09/17/18 at 03:30 Potassium Chloride (Klor-Con 20) 60 meq DAILY PO Last administered on 09/24/18at 08:50; Admin Dose 60 MEQ; Start 09/17/18 at 09:00 Thiamine HCl (Vitamin B1) 100 mg DAILY PO Last administered on 09/24/18at 08:51; Admin Dose 100 MG; Start 09/17/18 at 14:30 Diagnostic Test (Pha) (Accu-Chek) 1 ea 02 XX ; Start 09/18/18 at 02:00 Insulin Aspart (Novolog Insulin Pen) NOVOLOG *MILD* ALGORITHM WITH MEALS BEDTIME SC Last administered on 09/24/18at 12:56; Admin Dose 3 UNIT; Start 09/17/18 at 17:55 Miscellaneous Information 1 ea NOTE XX ; Start 09/17/18 at 14:30 Glucose (Glutose) 15 gm Q15M PRN PO DECREASED GLUCOSE; Start 09/17/18 at 14:30 Glucose (Glutose) 22.5 gm Q15M PRN PO DECREASED GLUCOSE; Start 09/17/18 at 14:30 Dextrose (D50w Syringe) 25 ml Q15M PRN IV DECREASED GLUCOSE; Start 09/17/18 at 14:30 Dextrose (D50w Syringe) 50 ml Q15M PRN IV DECREASED GLUCOSE; Start 09/17/18 at 14:30 Glucagon (Glucagen) 1 mg Q15M PRN IM DECREASED GLUCOSE; Start 09/17/18 at 14:30 Glucose (Glutose) 15 gm Q15M PRN BUCCAL DECREASED GLUCOSE; Start 09/17/18 at 14:30 Magnesium Oxide (Mag-Ox 400) 400 mg TID PO Last administered on 09/24/18at 20:4 6; Admin Dose 400 MG; Start 09/19/18 at 21:00 Famotidine (Pepcid) 20 mg HS PO Last administered on 09/24/18 20:46; Admin Dose 20 MG; Start 09/19/18 at 21:00 Folic Acid (Folic Acid) 1 mg DAILY PO Last administered on 09/24/18 08:51; Admin Dose 1 MG; Start 09/21/18 at 09:00 Furosemide (Lasix) 20 mg DAILY PO Last administered on 09/24/18 08:51; Admin Dose 20 MG; Start 09/21/18 at 15:00 Spironolactone (Aldactone) 50 mg DAILY PO Last administered on 09/24/18 08:50; Admin Dose 50 MG; Start 09/22/18 at 17:30 Hydrocortisone (Cortef) 20 mg DAILY@0700 PO Last administered on 09/24/18 07:02; Admin Dose 20 MG; Start 09/23/18 at 07:00 Hydrocortisone (Cortef) 10 mg DAILY@1700 PO Last administered on 09/24/18 17:29; Admin Dose 10 MG; Start 09/22/18 at 18:00 Metformin HCl (Glucophage) 500 mg BID WITH MEALS PO Last administered on 7/12/19at 17:27; Admin Dose 500 MG; Start 09/24/18 at 07:50 Linagliptin (Tradjenta) 5 mg DAILY PO ; Start 09/25/18 at 09:00 Empaglifozin (Jardiance) 10 mg DAILY@08 PO ; Start 09/25/18 at 08:00 Assessment/Plan Hospital Course (Demo Recall) 1. Nonoliguric acute kidney injury with previously normal baseline creatinine. Etiology of TORIBIO is secondary to hemodynamics, diuretic therapy. The patient's creatinine has improved in the last 24 hours. Monitor closely on current diuretic regimen. watch for diuretic phase of toribio. 2. Mineral bone disorder. Monitor calcium and phosphorus levels. 3. Hypokalemia, resolved. 4. Decompensated cirrhosis. The patient is status post paracentesis. Continue medical management. Continue diuretic therapy, monitor renal function and electrolytes closely. 5. Hypotension, improved. 6. Questionable adrenal insufficiency. The patient has been placed on a trial of Cortef. Follow up with endocrinology. 7. Diabetes. Continue current insulin regimen. 8. Hypomagnesemia. Continue to monitor and replete as needed. 9. History of ETOH abuse. Continue thiamine, and folic acid. 10. Thrombocytopenia secondary to cirrhosis. Continue to monitor. EMILY CARLSON DO Sep 25, 2018 06:09
[2018-09-25] MEDS: HYDROCORTISONE 20 MG TAB PO SCH (06:53)
[2018-09-25] MEDS: INSULIN ASPART [NOVOLOG] 3 ML PEN SC SCH ×4 (07:50→20:13)
[2018-09-25] MEDS: POTASSIUM CHLORIDE (SR) 20 MEQ TAB PO SCH (08:19)
[2018-09-25] MEDS: THIAMINE 100 MG TAB PO SCH (08:19)
[2018-09-25] MEDS: metFORMIN 500 MG TAB PO SCH ×2 (08:19→17:34)
[2018-09-25] MEDS: EMPAGLIFLOZIN 10 MG TABLET PO SCH (08:20)
[2018-09-25] MEDS: SPIRONOLACTONE 50 MG TAB PO SCH (08:20)
[2018-09-25] MEDS: FERROUS SULFATE (EC) 325 MG TAB PO SCH (08:20)
[2018-09-25] MEDS: FUROSEMIDE 20 MG TAB PO SCH (08:20)
[2018-09-25] MEDS: MAGNESIUM OXIDE 400 MG TAB PO SCH ×3 (08:20→20:12)
[2018-09-25] MEDS: LINAGLIPTIN 5 MG TABLET PO SCH (08:20)
[2018-09-25] MEDS: FOLIC ACID 1 MG TAB PO SCH (08:20)
[2018-09-25 08:26] VITALS: BP 96/63; PULSE 91; RESP 18
[2018-09-25 14:00] VITALS: BP 110/56; PULSE 80; RESP 18
--- NOTE | 2018-09-25 14:01 | PN ---
Date/Time of Note Date/Time of Note DATE: 09/25/18 TIME: 13:59 Assessment/Plan VTE Prophylaxis Risk score (from Ns)>0 risk: 1 SCD applied (from Ns): Yes Pharmacological prophylaxis: NA/contraindicated Pharm contraindication: liver dx Lines/Catheters IV C[facility]ter Type [facility]from [facility] Urinary Cath still in place: No Assessment/Plan Hospital Course SUBJECTIVE: Denies any pain. OBJECTIVE: Physical Exam General: Adequately build 38 year-old male lying in bed in no apparent distress. HEENT: Normocephalic, atraumatic. Eyes: Anicteric sclerae, conjunctivae clear. ENT: Nasal septum midline, oral mucosa moist. Neck supple, no JVD noticed. Respiratory: Bilaterally clear breath sounds. No use of accessory muscles of respiration. No adventitious breath sounds. Cardiovascular: S1, S2 heard. Regular rate and rhythm. Abdomen: Soft, nontender, and nondistended. Bowel sounds positive in all 4 quadrants. Genitourinary: Deferred. Extremities: No cyanosis, no clubbing, no edema. Peripheral pulses palpable. Neurologic: Cranial nerves II through XII grossly intact. The patient is awake, alert, and oriented. Skin: Normal skin turgor. No skin rashes. Labs & Vitals per chart ASSESSMENT & PLAN 38-year-old male with comorbidities including alcohol abuse, diabetes mellitus, and alcoholic cirrhosis who presented to the emergency room complaining of generalized weakness, who was admitted to inpatient setting for further treatment and evaluation. 1. Low serum cortisol. Patient has been placed on cortisol replacement. Being followed by endocrinology. 2. Alcoholic liver cirrhosis. Status post paracentesis on 09/17/2018 with drainage of 4.5 L of fluid. Continue Lasix and Aldactone. 3. Diabetes mellitus. Hemoglobin A1c 6.3. Continue metformin, Tradjenta, and Jardiance. 4. EtOH abuse. Continue thiamine and folic acid. 5. Acute kidney injury. Resolved. Being followed by nephrology. 6. Fluids, electrolytes, and nutrition. Renal, carbohydrate controlled diet. 7. DVT prophylaxis. Ambulation. Bilateral SCDs. 8. Plan. Continue steroid replacement as per endocrinology. Await clearance from consultants before discharge The patient was seen in collaboration with Dr. Cannon. Result Diagram: 09/23/18 0452 09/25/18 0433 Results 24hrs Laboratory Tests Test 09/24/18 20:47 09/25/18 04:33 09/25/18 08:17 09/25/18 12:31 Bedside Glucose 166 137 104 Sodium Level 143 Potassium Level 3.8 Chloride Level 111 H Carbon Dioxide Level 25 Anion Gap 7 Blood Urea Nitrogen 23 H Creatinine 1.14 Est Glomerular > 60 Filtrat Rate mL/min Glucose Level 147 Calcium Level 8.9 Phosphorus Level 3.1 Magnesium Level 1.8 Exam/Review of Systems Exam Vitals Vital Signs Date Temp Pulse Resp B/P (MAP) Pulse Ox O2 O2 Flow FiO2 Time Delivery Rate 09/25/18 98.9 91 18 96/63 (74) 99 08:26 09/25/18 Room Air 02:05 Intake and Output 09/24/18 09/24/18 09/25/18 1515:00 23:00 07:00 IntakeIntake Total 300 ml BalanceBalance 300 ml Results Results 24hrs Laboratory Tests Test 09/24/18 20:47 09/25/18 04:33 09/25/18 08:17 09/25/18 12:31 Bedside Glucose 166 137 104 Sodium Level 143 Potassium Level 3.8 Chloride Level 111 H Carbon Dioxide Level 25 Anion Gap 7 Blood Urea Nitrogen 23 H Creatinine 1.14 Est Glomerular > 60 Filtrat Rate mL/min Glucose Level 147 Calcium Level 8.9 Phosphorus Level 3.1 Magnesium Level 1.8 Medications Medication Current Medications IV Flush (NS 3 ml) 3 ml PER PROTOCOL IV ; Start 09/17/18 at 03:30 Ondansetron HCl (Zofran Inj) 4 mg Q6H PRN IV NAUSEA/VOMITING; Start 09/17/18 at 03:30 Acetaminophen (Tylenol Tab) 650 mg Q6H PRN PO .PAIN 1-3 OR TEMP Last administered on 09/20/18at 05:27; Admin Dose 650 MG; Start 09/17/18 at 03:30 Albuterol/ Ipratropium (Duoneb) 3 ml Q2H RESP THERAPY PRN HHN SHORTNESS OF BREATH; Start 09/17/18 at 03:30 Ferrous Sulfate (Ferrous Sulfate (Ec)) 325 mg DAILY PO Last administered on 09/25/18at 08:20; Admin Dose 325 MG; Start 09/17/18 at 09:00 Lorazepam (Ativan) 1 mg Q12H PRN PO ANXIETY; Start 09/17/18 at 03:30 Potassium Chloride (Klor-Con 20) 60 meq DAILY PO Last administered on 09/25/18at 08:19; Admin Dose 60 MEQ; Start 09/17/18 at 09:00 Thiamine HCl (Vitamin B1) 100 mg DAILY PO Last administered on 09/25/18at 08:19; Admin Dose 100 MG; Start 09/17/18 at 14:30 Diagnostic Test (Pha) (Accu-Chek) 1 ea 02 XX ; Start 09/18/18 at 02:00 Insulin Aspart (Novolog Insulin Pen) NOVOLOG *MILD* ALGORITHM WITH MEALS BEDTIME SC Last administered on 09/24/18at 12:56; Admin Dose 3 UNIT; Start 09/17/18 at 17:55 Miscellaneous Information 1 ea NOTE XX ; Start 09/17/18 at 14:30 Glucose (Glutose) 15 gm Q15M PRN PO DECREASED GLUCOSE; Start 09/17/18 at 14:30 Glucose (Glutose) 22.5 gm Q15M PRN PO DECREASED GLUCOSE; Start 09/17/18 at 14:30 Dextrose (D50w Syringe) 25 ml Q15M PRN IV DECREASED GLUCOSE; Start 09/17/18 at 14:30 Dextrose (D50w Syringe) 50 ml Q15M PRN IV DECREASED GLUCOSE; Start 09/17/18 at 14:30 Glucagon (Glucagen) 1 mg Q15M PRN IM DECREASED GLUCOSE; Start 09/17/18 at 14:30 Glucose (Glutose) 15 gm Q15M PRN BUCCAL DECREASED GLUCOSE; Start 09/17/18 at 14:30 Magnesium Oxide (Mag-Ox 400) 400 mg TID PO Last administered on 09/25/18at 12:31; Admin Dose 400 MG; Start 09/19/18 at 21:00 Famotidine (Pepcid) 20 mg HS PO Last administered on 09/24/18at 20:46; Admin Dose 20 MG; Start 09/19/18 at 21:00 Folic Acid (Folic Acid) 1 mg DAILY PO Last administered on 09/25/18at 08:20; Admin Dose 1 MG; Start 09/21/18 at 09:00 Furosemide (Lasix) 20 mg DAILY PO Last administered on 09/25/18at 08:20; Admin Dose 20 MG; Start 09/21/18 at 15:00 Spironolactone (Aldactone) 50 mg DAILY PO Last administered on 09/25/18 08:20; Admin Dose 50 MG; Start 09/22/18 at 17:30 Hydrocortisone (Cortef) 20 mg DAILY@0700 PO Last administered on 09/25/18 06:53; Admin Dose 20 MG; Start 09/23/18 at 07:00 Hydrocortisone (Cortef) 10 mg DAILY@1700 PO Last administered on 09/24/18 17:29; Admin Dose 10 MG; Start 09/22/18 at 18:00 Metformin HCl (Glucophage) 500 mg BID WITH MEALS PO Last administered on 09/25/18 08:19; Admin Dose 500 MG; Start 09/24/18 at 07:50 Linagliptin (Tradjenta) 5 mg DAILY PO Last administered on 09/25/18 08:20; Admin Dose 5 MG; Start 09/25/18 at 09:00 Empaglifozin (Jardiance) 10 mg DAILY@08 PO Last administered on 09/25/18 08:20; Admin Dose 10 MG; Start 09/25/18 at 08:00 MOLLY WYNNE NP Sep 25, 2018 14:01
--- NOTE | 2018-09-25 14:22 | CONS ---
Assessment/Plan Assessment/Plan Problems: (1) Type 2 diabetes mellitus without complications Status: Chronic Comment: Good glycemic control on current regimen (2) Low serum cortisol level Status: Acute Comment: c/w Adrenal insufficiency on hydrocortisone replacement. Initial response good, but BP levels seem to have returned to baseline at admission. Lab abnormalities have normalized Consultation Date/Type/Reason Admit Date/Time Sep 17, 2018 at 05:48 Initial Consult Date 09/22/18 Type of Consult Endocrine Reason for Consultation DM Type 2, Adrenal Insufficiency Requesting Provider: ANGEL BATISTA MD Date/Time of Note DATE: 09/25/18 TIME: 14:19 24 HR Interval Summary Free Text/Dictation No new complaints Exam/Review of Systems Exam Vitals Vital Signs Date Temp Pulse Resp B/P (MAP) Pulse Ox O2 O2 Flow FiO2 Time Delivery Rate 09/25/18 98.9 91 18 96/63 (74) 99 08:26 09/25/18 Room Air 02:05 Intake and Output 09/24/18 09/24/18 09/25/18 1515:00 23:00 07:00 IntakeIntake Total 300 ml BalanceBalance 300 ml Constitutional: alert Neck: supple Respiratory: normal air movement Cardiovascular: regular rate and rhythm Gastrointestinal: soft Musculoskeletal: nl extremities to inspection Results Result Diagram: 09/23/18 0452 09/25/18 0433 Results 24hrs Laboratory Tests Test 09/24/18 20:47 09/25/18 04:33 09/25/18 08:17 09/25/18 12:31 Bedside Glucose 166 137 104 Sodium Level 143 Potassium Level 3.8 Chloride Level 111 H Carbon Dioxide Level 25 Anion Gap 7 Blood Urea Nitrogen 23 H Creatinine 1.14 Est Glomerular > 60 Filtrat Rate mL/min Glucose Level 147 Calcium Level 8.9 Phosphorus Level 3.1 Magnesium Level 1.8 Medications Medication Current Medications IV Flush (NS 3 ml) 3 ml PER PROTOCOL IV ; Start 09/17/18 at 03:30 Ondansetron HCl (Zofran Inj) 4 mg Q6H PRN IV NAUSEA/VOMITING; Start 09/17/18 at 03:30 Acetaminophen (Tylenol Tab) 650 mg Q6H PRN PO .PAIN 1-3 OR TEMP Last administered on 09/20/18at 05:27; Admin Dose 650 MG; Start 09/17/18 at 03:30 Albuterol/ Ipratropium (Duoneb) 3 ml Q2H RESP THERAPY PRN HHN SHORTNESS OF BREATH; Start 09/17/18 at 03:30 Ferrous Sulfate (Ferrous Sulfate (Ec)) 325 mg DAILY PO Last administered on 09/25/18at 08:20; Admin Dose 325 MG; Start 09/17/18 at 09:00 Lorazepam (Ativan) 1 mg Q12H PRN PO ANXIETY; Start 09/17/18 at 03:30 Potassium Chloride (Klor-Con 20) 60 meq DAILY PO Last administered on 09/25/18at 08:19; Admin Dose 60 MEQ; Start 09/17/18 at 09:00 Thiamine HCl (Vitamin B1) 100 mg DAILY PO Last administered on 09/25/18at 08:19; Admin Dose 100 MG; Start 09/17/18 at 14:30 Diagnostic Test (Pha) (Accu-Chek) 1 ea 02 XX ; Start 09/18/18 at 02:00 Insulin Aspart (Novolog Insulin Pen) NOVOLOG *MILD* ALGORITHM WITH MEALS BEDTIME SC Last administered on 09/24/18at 12:56; Admin Dose 3 UNIT; Start 09/17/18 at 17:55 Miscellaneous Information 1 ea NOTE XX ; Start 09/17/18 at 14:30 Glucose (Glutose) 15 gm Q15M PRN PO DECREASED GLUCOSE; Start 09/17/18 at 14:30 Glucose (Glutose) 22.5 gm Q15M PRN PO DECREASED GLUCOSE; Start 09/17/18 at 14:30 Dextrose (D50w Syringe) 25 ml Q15M PRN IV DECREASED GLUCOSE; Start 09/17/18 at 14:30 Dextrose (D50w Syringe) 50 ml Q15M PRN IV DECREASED GLUCOSE; Start 09/17/18 at 14:30 Glucagon (Glucagen) 1 mg Q15M PRN IM DECREASED GLUCOSE; Start 09/17/18 at 14:30 Glucose (Glutose) 15 gm Q15M PRN BUCCAL DECREASED GLUCOSE; Start 09/17/18 at 14:30 Magnesium Oxide (Mag-Ox 400) 400 mg TID PO Last administered on 09/25/18at 12:31; Admin Dose 400 MG; Start 09/19/18 at 21:00 Famotidine (Pepcid) 20 mg HS PO Last administered on 7/12/19at 20:46; Admin Dose 20 MG; Start 09/19/18 at 21:00 Folic Acid (Folic Acid) 1 mg DAILY PO Last administered on 09/25/18 08:20; Admin Dose 1 MG; Start 09/21/18 at 09:00 Furosemide (Lasix) 20 mg DAILY PO Last administered on 09/25/18 08:20; Admin Dose 20 MG; Start 09/21/18 at 15:00 Spironolactone (Aldactone) 50 mg DAILY PO Last administered on 09/25/18 08:20; Admin Dose 50 MG; Start 09/22/18 at 17:30 Hydrocortisone (Cortef) 20 mg DAILY@0700 PO Last administered on 09/25/18 06:53; Admin Dose 20 MG; Start 09/23/18 at 07:00 Hydrocortisone (Cortef) 10 mg DAILY@1700 PO Last administered on 09/24/18 1 7:29; Admin Dose 10 MG; Start 09/22/18 at 18:00 Metformin HCl (Glucophage) 500 mg BID WITH MEALS PO Last administered on 09/25/18 08:19; Admin Dose 500 MG; Start 09/24/18 at 07:50 Linagliptin (Tradjenta) 5 mg DAILY PO Last administered on 09/25/18 08:20; Admin Dose 5 MG; Start 09/25/18 at 09:00 Empaglifozin (Jardiance) 10 mg DAILY@08 PO Last administered on 09/25/18 08:20; Admin Dose 10 MG; Start 09/25/18 at 08:00 BRIAN MENG MD Sep 25, 2018 14:22
[2018-09-25] MEDS: HYDROCORTISONE 5 MG TAB PO SCH (17:34)
[2018-09-25 19:20] VITALS: BP 118/74; PULSE 83; RESP 18
[2018-09-25] MEDS: FAMOTIDINE 20 MG TAB PO SCH (20:12)
[2018-09-26 02:03] VITALS: BP 102/67; PULSE 88; RESP 18
[2018-09-26] MEDS: HYDROCORTISONE 20 MG TAB PO SCH (06:29)
--- NOTE | 2018-09-26 06:41 | CONS ---
Consult Date/Type/Reason Admit Date/Time Sep 17, 2018 at 05:48 Initial Consult Date 09/22/18 Requesting Provider: ANGEL BATISTA MD Date/Time of Note DATE: 09/26/18 TIME: 06:39 Subjective The patient is stable. No events overnight. No fevers, chills, nausea or vomiting. reportedly improved on steroids. continues good uo. POC Reviewed with dr. south HEENT: Head is normocephalic. NECK: Supple. HEART: Regular rate. LUNGS: Show diminished breath sounds at the base. ABDOMEN: Soft, nontender to palpation without rebound or guarding. EXTREMITIES: Negative for clubbing, cyanosis, no edema. DERMATOLOGIC: No rashes. MUSCULOSKELETAL: No joint effusion. NEUROLOGIC: No change in exam. Objective Vitals Vital Signs Date Temp Pulse Resp B/P (MAP) Pulse Ox O2 O2 Flow FiO2 Time Delivery Rate 09/26/18 98.7 88 18 102/67 98 02:03 (79) 09/25/18 Room Air 02:05 Intake and Output 09/25/18 09/25/18 09/26/18 1515:00 23:00 07:00 IntakeIntake Total 840 ml 240 ml OutputOutput Total 475 ml BalanceBalance 365 ml 240 ml Results/Medications Result Diagram: 09/26/18 0433 09/26/18 0433 Results 24 hrs Laboratory Tests Test 09/25/18 08:17 09/25/18 12:31 09/25/18 17:33 09/25/18 20:11 Bedside Glucose 137 104 121 139 Test 09/26/18 04:33 White Blood Count 12.5 #H Red Blood Count 2.65 L Hemoglobin 8.0 L Hematocrit 25.2 L Mean Corpuscular 95.1 Volume Mean Corpuscular 30.2 Hemoglobin Mean Corpuscular 31.7 L Hemoglobin Concent Red Cell 15.1 H Distribution Width Platelet Count 144 # Mean Platelet Volume 9.3 Immature 0.800 H Granulocytes % Neutrophils % 69.3 Lymphocytes % 18.7 Monocytes % 9.6 Eosinophils % 0.6 Basophils % 1.0 Nucleated Red Blood 0.0 Cells % Immature 0.100 H Granulocytes # Neutrophils # 8.6 H Lymphocytes # 2.3 Monocytes # 1.2 H Eosinophils # 0.1 Basophils # 0.1 Nucleated Red Blood 0.0 Cells # Sodium Level 146 H Potassium Level 3.8 Chloride Level 114 H Carbon Dioxide Level 24 Anion Gap 8 Blood Urea Nitrogen 26 H Creatinine 1.01 Est Glomerular > 60 Filtrat Rate mL/min Glucose Level 135 Calcium Level 9.1 Phosphorus Level 3.2 Magnesium Level 1.8 Total Bilirubin 0.4 Direct Bilirubin 0.00 Indirect Bilirubin 0.4 Aspartate Amino 41 Transf (AST/SGOT) Alanine 20 Aminotransferase (AL T/SGPT) Alkaline Phosphatase 163 H Total Protein 7.6 Albumin 3.4 Globulin 4.20 H Albumin/Globulin 0.80 Ratio Home Meds Active Scripts Levofloxacin* (Levofloxacin*) 750 Mg Tablet, 750 MG PO DAILY for 30 Days, #30 TAB Prov:JONN SEAY MD 09/07/18 Metformin* (Glucophage*) 500 Mg Tab, 500 MG PO BID WITH MEALS, #90 TAB 2 Refills Prov:JONN SEAY MD 09/07/18 Linagliptin (TRADJENTA) 5 Mg Tablet, 5 MG PO DAILY, #90 TAB 1 Refill Prov:JONN SEAY MD 09/07/18 Empagliflozin (Jardiance) 10 Mg Tablet, 25 MG PO DAILY@08, #90 TAB 1 Refill Prov:JONN SEAY MD 09/07/18 Magnesium Oxide* (Mag-Oxide*) 400 Mg Tablet, 400 MG PO DAILY, #60 TAB 2 Refills Prov:JONN SEAY MD 09/07/18 Potassium Chloride* (K-Dur*) 20 Meq Tab.prt.sr, 60 MEQ PO DAILY, #90 TAB 2 Refills Prov:JONN SEAY MD 09/07/18 Reported Medications Ferrous Sulfate* (Ferrous Sulfate*) 325 Mg Tabec, 325 MG PO DAILY, TAB 08/25/18 Lorazepam* (Lorazepam*) 1 Mg Tablet, 1 MG PO Q12H PRN for ANXIETY for 15 Days, #30 08/25/18 Cholecalciferol* (Vitamin D*) 400 Unit Tablet, 800 UNIT PO DAILY, TAB 06/24/17 Medications Current Medications IV Flush (NS 3 ml) 3 ml PER PROTOCOL IV ; Start 09/17/18 at 03:30 Ondansetron HCl (Zofran Inj) 4 mg Q6H PRN IV NAUSEA/VOMITING; Start 09/17/18 at 03:30 Acetaminophen (Tylenol Tab) 650 mg Q6H PRN PO .PAIN 1-3 OR TEMP Last administered on 09/20/18at 05:27; Admin Dose 650 MG; Start 09/17/18 at 03:30 Albuterol/ Ipratropium (Duoneb) 3 ml Q2H RESP THERAPY PRN HHN SHORTNESS OF BREATH; Start 09/17/18 at 03:30 Ferrous Sulfate (Ferrous Sulfate (Ec)) 325 mg DAILY PO Last administered on 09/25/18at 08:20; Admin Dose 325 MG; Start 09/17/18 at 09:00 Lorazepam (Ativan) 1 mg Q12H PRN PO ANXIETY; Start 09/17/18 at 03:30 Potassium Chloride (Klor-Con 20) 60 meq DAILY PO Last administered on 09/25/18at 08:19; Admin Dose 60 MEQ; Start 09/17/18 at 09:00 Thiamine HCl (Vitamin B1) 100 mg DAILY PO Last administered on 09/25/18at 08:19; Admin Dose 100 MG; Start 09/17/18 at 14:30 Diagnostic Test (Pha) (Accu-Chek) 1 ea 02 XX ; Start 09/18/18 at 02:00 Insulin Aspart (Novolog Insulin Pen) NOVOLOG *MILD* ALGORITHM WITH MEALS BEDTIME SC Last administered on 09/24/18at 12:56; Admin Dose 3 UNIT; Start 09/17/18 at 17:55 Miscellaneous Information 1 ea NOTE XX ; Start 09/17/18 at 14:30 Glucose (Glutose) 15 gm Q15M PRN PO DECREASED GLUCOSE; Start 09/17/18 at 14:30 Glucose (Glutose) 22.5 gm Q15M PRN PO DECREASED GLUCOSE; Start 09/17/18 at 14:30 Dextrose (D50w Syringe) 25 ml Q15M PRN IV DECREASED GLUCOSE; Start 09/17/18 at 14:30 Dextrose (D50w Syringe) 50 ml Q15M PRN IV DECREASED GLUCOSE; Start 09/17/18 at 14:30 Glucagon (Glucagen) 1 mg Q15M PRN IM DECREASED GLUCOSE; Start 09/17/18 at 14:30 Glucose (Glutose) 15 gm Q15M PRN BUCCAL DECREASED GLUCOSE; Start 09/17/18 at 14:30 Magnesium Oxide (Mag-Ox 400) 400 mg TID PO Last administered on 09/25/18 20:12; Admin Dose 400 MG; Start 09/19/18 at 21:00 Famotidine (Pepcid) 20 mg HS PO Last administered on 09/25/18 20:12; Admin Dose 20 MG; Start 09/19/18 at 21:00 Folic Acid (Folic Acid) 1 mg DAILY PO Last administered on 09/25/18 08:20; Admin Dose 1 MG; Start 09/21/18 at 09:00 Furosemide (Lasix) 20 mg DAILY PO Last administered on 09/25/18 08:20; Admin Dose 20 MG; Start 09/21/18 at 15:00 Spironolactone (Aldactone) 50 mg DAILY PO Last administered on 09/25/18 08:20; Admin Dose 50 MG; Start 09/22/18 at 17:30 Hydrocortisone (Cortef) 20 mg DAILY@0700 PO Last administered on 09/26/18 06:29; Admin Dose 20 MG; Start 09/23/18 at 07:00 Hydrocortisone (Cortef) 10 mg DAILY@1700 PO Last administered on 09/25/18 17:34; Admin Dose 10 MG; Start 09/22/18 at 18:00 Metformin HCl (Glucophage) 500 mg BID WITH MEALS PO Last administered on 09/25/18 17:34; Admin Dose 500 MG; Start 09/24/18 at 07:50 Linagliptin (Tradjenta) 5 mg DAILY PO Last administered on 09/25/18 08:20; Admin Dose 5 MG; Start 09/25/18 at 09:00 Empaglifozin (Jardiance) 10 mg DAILY@08 PO Last administered on 09/25/18 08:20; Admin Dose 10 MG; Start 09/25/18 at 08:00 Assessment/Plan Hospital Course (Demo Recall) 1. Nonoliguric acute kidney injury with previously normal baseline creatinine. Etiology of TORIBIO is secondary to hemodynamics, diuretic therapy. The patient's creatinine has improved in the last 24 hours. Monitor closely on current diuretic regimen. watch for diuretic phase of toribio. 2. Mineral bone disorder. Monitor calcium and phosphorus levels. 3. Hypokalemia, resolved. 4. Decompensated cirrhosis. The patient is status post paracentesis. Continue medical management. Continue diuretic therapy, monitor renal function and electrolytes closely. 5. Hypotension, improved. 6. Questionable adrenal insufficiency. The patient has been placed on a trial of Cortef. Follow up with endocrinology. 7. Diabetes. Continue current insulin regimen. 8. Hypomagnesemia. Continue to monitor and replete as needed. 9. History of ETOH abuse. Continue thiamine, and folic acid. 10. Thrombocytopenia secondary to cirrhosis. Continue to monitor. EMILY CARLSON DO Sep 26, 2018 06:41
[2018-09-26 07:13] VITALS: BP 101/65; PULSE 70; RESP 18
[2018-09-26] MEDS: LINAGLIPTIN 5 MG TABLET PO SCH (08:36)
[2018-09-26] MEDS: THIAMINE 100 MG TAB PO SCH (08:36)
[2018-09-26] MEDS: FOLIC ACID 1 MG TAB PO SCH (08:36)
[2018-09-26] MEDS: metFORMIN 500 MG TAB PO SCH ×2 (08:36→17:41)
[2018-09-26] MEDS: SPIRONOLACTONE 50 MG TAB PO SCH (08:36)
[2018-09-26] MEDS: MAGNESIUM OXIDE 400 MG TAB PO SCH ×3 (08:37→20:23)
[2018-09-26] MEDS: EMPAGLIFLOZIN 10 MG TABLET PO SCH (08:37)
[2018-09-26] MEDS: POTASSIUM CHLORIDE (SR) 20 MEQ TAB PO SCH (08:37)
[2018-09-26] MEDS: FUROSEMIDE 20 MG TAB PO SCH (08:37)
[2018-09-26] MEDS: FERROUS SULFATE (EC) 325 MG TAB PO SCH (08:37)
[2018-09-26] MEDS: INSULIN ASPART [NOVOLOG] 3 ML PEN SC SCH ×4 (08:38→20:23)
--- NOTE | 2018-09-26 09:39 | PN ---
Date/Time of Note Date/Time of Note DATE: 09/26/18 TIME: 09:38 Assessment/Plan VTE Prophylaxis Risk score (from Ns)>0 risk: 1 SCD applied (from Ns): Yes Pharmacological prophylaxis: NA/contraindicated Pharm contraindication: liver dx Lines/Catheters IV Catheter Type (from [facility]): [facility] Urinary Cath still in place: No Assessment/Plan Hospital Course SUBJECTIVE: Denies any pain. OBJECTIVE: Physical Exam General: Adequately build 38 year-old male lying in bed in no apparent distress. HEENT: Normocephalic, atraumatic. Eyes: Anicteric sclerae, conjunctivae clear. ENT: Nasal septum midline, oral mucosa moist. Neck supple, no JVD noticed. Respiratory: Bilaterally clear breath sounds. No use of accessory muscles of respiration. No adventitious breath sounds. Cardiovascular: S1, S2 heard. Regular rate and rhythm. Abdomen: Soft, nontender, and nondistended. Bowel sounds positive in all 4 quadrants. Genitourinary: Deferred. Extremities: No cyanosis, no clubbing, no edema. Peripheral pulses palpable. Neurologic: Cranial nerves II through XII grossly intact. The patient is awake, alert, and oriented. Skin: Normal skin turgor. No skin rashes. Labs & Vitals per chart ASSESSMENT & PLAN 38-year-old male with comorbidities including alcohol abuse, diabetes mellitus, and alcoholic cirrhosis who presented to the emergency room complaining of generalized weakness, who was admitted to inpatient setting for further treatment and evaluation. 1. Low serum cortisol. Patient has been placed on cortisol replacement. Being followed by endocrinology. 2. Alcoholic liver cirrhosis. Status post paracentesis on 09/17/2018 with drainage of 4.5 L of fluid. Continue Lasix and Aldactone. 3. Diabetes mellitus. Hemoglobin A1c 6.3. Continue metformin, Tradjenta, and Jardiance. 4. EtOH abuse. Continue thiamine and folic acid. 5. Acute kidney injury. Resolved. Being followed by nephrology. 6. Fluids, electrolytes, and nutrition. Renal, carbohydrate controlled diet. 7. DVT prophylaxis. Ambulation. Bilateral SCDs. 8. Plan. Continue steroid replacement as per endocrinology. Await clearance from consultants before discharge The patient was seen in collaboration with Dr. Cannon. Result Diagram: 09/26/18 0433 09/26/18 0433 Results 24hrs Laboratory Tests Test 09/25/18 12:31 09/25/18 17:33 09/25/18 20:11 09/26/18 04:33 Bedside Glucose 104 121 139 White Blood Count 12.5 #H Red Blood Count 2.65 L Hemoglobin 8.0 L Hematocrit 25.2 L Mean Corpuscular 95.1 Volume Mean Corpuscular 30.2 Hemoglobin Mean Corpuscular 31.7 L Hemoglobin Concent Red Cell 15.1 H Distribution Width Platelet Count 144 # Mean Platelet Volume 9.3 Immature 0.800 H Granulocytes % Neutrophils % 69.3 Lymphocytes % 18.7 Monocytes % 9.6 Eosinophils % 0.6 Basophils % 1.0 Nucleated Red Blood 0.0 Cells % Immature 0.100 H Granulocytes # Neutrophils # 8.6 H Lymphocytes # 2.3 Monocytes # 1.2 H Eosinophils # 0.1 Basophils # 0.1 Nucleated Red Blood 0.0 Cells # Sodium Level 146 H Potassium Level 3.8 Chloride Level 114 H Carbon Dioxide Level 24 Anion Gap 8 Blood Urea Nitrogen 26 H Creatinine 1.01 Est Glomerular > 60 Filtrat Rate mL/min Glucose Level 135 Calcium Level 9.1 Phosphorus Level 3.2 Magnesium Level 1.8 Total Bilirubin 0.4 Direct Bilirubin 0.00 Indirect Bilirubin 0.4 Aspartate Amino 41 Transf (AST/SGOT) Alanine 20 Aminotransferase (AL T/SGPT) Alkaline Phosphatase 163 H Total Protein 7.6 Albumin 3.4 Globulin 4.20 H Albumin/Globulin 0.80 Ratio Test 09/26/18 08:35 Bedside Glucose 144 Exam/Review of Systems Exam Vitals Vital Signs Date Temp Pulse Resp B/P (MAP) Pulse Ox O2 O2 Flow FiO2 Time Delivery Rate 09/26/18 98.9 70 18 101/65 99 07:13 (77) 09/25/18 Room Air 02:05 Intake and Output 09/25/18 09/25/18 09/26/18 1515:00 23:00 07:00 IntakeIntake Total 840 ml 240 ml OutputOutput Total 475 ml BalanceBalance 365 ml 240 ml Results Results 24hrs Laboratory Tests Test 09/25/18 12:31 09/25/18 17:33 09/25/18 20:11 09/26/18 04:33 Bedside Glucose 104 121 139 White Blood Count 12.5 #H Red Blood Count 2.65 L Hemoglobin 8.0 L Hematocrit 25.2 L Mean Corpuscular 95.1 Volume Mean Corpuscular 30.2 Hemoglobin Mean Corpuscular 31.7 L Hemoglobin Concent Red Cell 15.1 H Distribution Width Platelet Count 144 # Mean Platelet Volume 9.3 Immature 0.800 H Granulocytes % Neutrophils % 69.3 Lymphocytes % 18.7 Monocytes % 9.6 Eosinophils % 0.6 Basophils % 1.0 Nucleated Red Blood 0.0 Cells % Immature 0.100 H Granulocytes # Neutrophils # 8.6 H Lymphocytes # 2.3 Monocytes # 1.2 H Eosinophils # 0.1 Basophils # 0.1 Nucleated Red Blood 0.0 Cells # Sodium Level 146 H Potassium Level 3.8 Chloride Level 114 H Carbon Dioxide Level 24 Anion Gap 8 Blood Urea Nitrogen 26 H Creatinine 1.01 Est Glomerular > 60 Filtrat Rate mL/min Glucose Level 135 Calcium Level 9.1 Phosphorus Level 3.2 Magnesium Level 1.8 Total Bilirubin 0.4 Direct Bilirubin 0.00 Indirect Bilirubin 0.4 Aspartate Amino 41 Transf (AST/SGOT) Alanine 20 Aminotransferase (AL T/SGPT) Alkaline Phosphatase 163 H Total Protein 7.6 Albumin 3.4 Globulin 4.20 H Albumin/Globulin 0.80 Ratio Test 09/26/18 08:35 Bedside Glucose 144 Medications Medication Current Medications IV Flush (NS 3 ml) 3 ml PER PROTOCOL IV ; Start 09/17/18 at 03:30 Ondansetron HCl (Zofran Inj) 4 mg Q6H PRN IV NAUSEA/VOMITING; Start 09/17/18 at 03:30 Acetaminophen (Tylenol Tab) 650 mg Q6H PRN PO .PAIN 1-3 OR TEMP Last administered on 09/20/18at 05:27; Admin Dose 650 MG; Start 09/17/18 at 03:30 Albuterol/ Ipratropium (Duoneb) 3 ml Q2H RESP THERAPY PRN HHN SHORTNESS OF BREATH; Start 09/17/18 at 03:30 Ferrous Sulfate (Ferrous Sulfate (Ec)) 325 mg DAILY PO Last administered on 09/26/18at 08:37; Admin Dose 325 MG; Start 09/17/18 at 09:00 Lorazepam (Ativan) 1 mg Q12H PRN PO ANXIETY; Start 09/17/18 at 03:30 Potassium Chloride (Klor-Con 20) 60 meq DAILY PO Last administered on 09/26/18at 08:37; Admin Dose 60 MEQ; Start 09/17/18 at 09:00 Thiamine HCl (Vitamin B1) 100 mg DAILY PO Last administered on 09/26/18at 08:36; Admin Dose 100 MG; Start 09/17/18 at 14:30 Diagnostic Test (Pha) (Accu-Chek) 1 ea 02 XX ; Start 09/18/18 at 02:00 Insulin Aspart (Novolog Insulin Pen) NOVOLOG *MILD* ALGORITHM WITH MEALS BEDTIME SC Last administered on 09/26/18at 08:38; Admin Dose 1 UNIT; Start 09/17/18 at 17:55 Miscellaneous Information 1 ea NOTE XX ; Start 09/17/18 at 14:30 Glucose (Glutose) 15 gm Q15M PRN PO DECREASED GLUCOSE; Start 09/17/18 at 14:30 Glucose (Glutose) 22.5 gm Q15M PRN PO DECREASED GLUCOSE; Start 09/17/18 at 14:30 Dextrose (D50w Syringe) 25 ml Q15M PRN IV DECREASED GLUCOSE; Start 09/17/18 at 14:30 Dextrose (D50w Syringe) 50 ml Q15M PRN IV DECREASED GLUCOSE; Start 09/17/18 at 14:30 Glucagon (Glucagen) 1 mg Q15M PRN IM DECREASED GLUCOSE; Start 09/17/18 at 14:30 Glucose (Glutose) 15 gm Q15M PRN BUCCAL DECREASED GLUCOSE; Start 09/17/18 at 14:30 Magnesium Oxide (Mag-Ox 400) 400 mg TID PO Last administered on 09/26/18at 08:37; Admin Dose 400 MG; Start 09/19/18 at 21:00 Famotidine (Pepcid) 20 mg HS PO Last administered on 09/25/18at 20:12; Admin Dose 20 MG; Start 09/19/18 at 21:00 Folic Acid (Folic Acid) 1 mg DAILY PO Last administered on 09/26/18at 08:36; Admin Dose 1 MG; Start 09/21/18 at 09:00 Furosemide (Lasix) 20 mg DAILY PO Last administered on 09/26/18at 08:37; Admin Dose 20 MG; Start 09/21/18 at 15:00 Spironolactone (Aldactone) 50 mg DAILY PO Last administered on 09/26/18at 08:36; Admin Dose 50 MG; Start 09/22/18 at 17:30 Hydrocortisone (Cortef) 20 mg DAILY@0700 PO Last administered on 09/26/18 06:29; Admin Dose 20 MG; Start 09/23/18 at 07:00 Hydrocortisone (Cortef) 10 mg DAILY@1700 PO Last administered on 09/25/18 17:34; Admin Dose 10 MG; Start 09/22/18 at 18:00 Metformin HCl (Glucophage) 500 mg BID WITH MEALS PO Last administered on 09/26/18 08:36; Admin Dose 500 MG; Start 09/24/18 at 07:50 Linagliptin (Tradjenta) 5 mg DAILY PO Last administered on 09/26/18 08:36; Admin Dose 5 MG; Start 09/25/18 at 09:00 Empaglifozin (Jardiance) 10 mg DAILY@08 PO Last administered on 09/26/18 08:37; Admin Dose 10 MG; Start 09/25/18 at 08:00 MOLLY WYNNE NP Sep 26, 2018 09:39
[2018-09-26 13:36] VITALS: BP 100/64; PULSE 87; RESP 17
--- NOTE | 2018-09-26 15:56 | CONS ---
Assessment/Plan Assessment/Plan Problems: (1) Low serum cortisol level Status: Acute Comment: stable on current dose. Will taper down dose (2) Type 2 diabetes mellitus without complications Status: Chronic Comment: Decent glycemic control Consultation Date/Type/Reason Admit Date/Time Sep 17, 2018 at 05:48 Initial Consult Date 09/22/18 Type of Consult Endocrine Reason for Consultation DM managment, Low cortisol Requesting Provider: ANGEL BATISTA MD Date/Time of Note DATE: 09/26/18 TIME: 15:53 24 HR Interval Summary Free Text/Dictation No new complaints Exam/Review of Systems Exam Vitals Vital Signs Date Temp Pulse Resp B/P (MAP) Pulse Ox O2 O2 Flow FiO2 Time Delivery Rate 09/26/18 98.7 87 17 100/64 100 13:36 (76) 09/25/18 Room Air 02:05 Intake and Output 09/25/18 09/25/18 09/26/18 1515:00 23:00 07:00 IntakeIntake Total 840 ml 240 ml OutputOutput Total 475 ml BalanceBalance 365 ml 240 ml Additional Comments POC glucose reviewed Results Result Diagram: 09/26/18 0433 09/26/18 0433 Results 24hrs Laboratory Tests Test 09/25/18 17:33 09/25/18 20:11 09/26/18 04:33 09/26/18 08:35 Bedside Glucose 121 139 144 White Blood Count 12.5 #H Red Blood Count 2.65 L Hemoglobin 8.0 L Hematocrit 25.2 L Mean Corpuscular 95.1 Volume Mean Corpuscular 30.2 Hemoglobin Mean Corpuscular 31.7 L Hemoglobin Concent Red Cell 15.1 H Distribution Width Platelet Count 144 # Mean Platelet Volume 9.3 Immature 0.800 H Granulocytes % Neutrophils % 69.3 Lymphocytes % 18.7 Monocytes % 9.6 Eosinophils % 0.6 Basophils % 1.0 Nucleated Red Blood 0.0 Cells % Immature 0.100 H Granulocytes # Neutrophils # 8.6 H Lymphocytes # 2.3 Monocytes # 1.2 H Eosinophils # 0.1 Basophils # 0.1 Nucleated Red Blood 0.0 Cells # Sodium Level 146 H Potassium Level 3.8 Chloride Level 114 H Carbon Dioxide Level 24 Anion Gap 8 Blood Urea Nitrogen 26 H Creatinine 1.01 Est Glomerular > 60 Filtrat Rate mL/min Glucose Level 135 Calcium Level 9.1 Phosphorus Level 3.2 Magnesium Level 1.8 Total Bilirubin 0.4 Direct Bilirubin 0.00 Indirect Bilirubin 0.4 Aspartate Amino 41 Transf (AST/SGOT) Alanine 20 Aminotransferase (AL T/SGPT) Alkaline Phosphatase 163 H Total Protein 7.6 Albumin 3.4 Globulin 4.20 H Albumin/Globulin 0.80 Ratio Test 09/26/18 12:28 Bedside Glucose 163 Medications Medication Current Medications IV Flush (NS 3 ml) 3 ml PER PROTOCOL IV ; Start 09/17/18 at 03:30 Ondansetron HCl (Zofran Inj) 4 mg Q6H PRN IV NAUSEA/VOMITING; Start 09/17/18 at 03:30 Acetaminophen (Tylenol Tab) 650 mg Q6H PRN PO .PAIN 1-3 OR TEMP Last administered on 09/20/18at 05:27; Admin Dose 650 MG; Start 09/17/18 at 03:30 Albuterol/ Ipratropium (Duoneb) 3 ml Q2H RESP THERAPY PRN HHN SHORTNESS OF BREATH; Start 09/17/18 at 03:30 Ferrous Sulfate (Ferrous Sulfate (Ec)) 325 mg DAILY PO Last administered on 09/26/18at 08:37; Admin Dose 325 MG; Start 09/17/18 at 09:00 Lorazepam (Ativan) 1 mg Q12H PRN PO ANXIETY; Start 09/17/18 at 03:30 Potassium Chloride (Klor-Con 20) 60 meq DAILY PO Last administered on 09/26/18at 08:37; Admin Dose 60 MEQ; Start 09/17/18 at 09:00 Thiamine HCl (Vitamin B1) 100 mg DAILY PO Last administered on 09/26/18at 08:36; Admin Dose 100 MG; Start 09/17/18 at 14:30 Diagnostic Test (Pha) (Accu-Chek) 1 ea 02 XX ; Start 09/18/18 at 02:00 Insulin Aspart (Novolog Insulin Pen) NOVOLOG *MILD* ALGORITHM WITH MEALS BEDTIME SC Last administered on 09/26/18at 12:29; Admin Dose 1 UNIT; Start 09/17/18 at 17:55 Miscellaneous Information 1 ea NOTE XX ; Start 09/17/18 at 14:30 Glucose (Glutose) 15 gm Q15M PRN PO DECREASED GLUCOSE; Start 09/17/18 at 14:30 Glucose (Glutose) 22.5 gm Q15M PRN PO DECREASED GLUCOSE; Start 09/17/18 at 14:30 Dextrose (D50w Syringe) 25 ml Q15M PRN IV DECREASED GLUCOSE; Start 09/17/18 at 14:30 Dextrose (D50w Syringe) 50 ml Q15M PRN IV DECREASED GLUCOSE; Start 09/17/18 at 14:30 Glucagon (Glucagen) 1 mg Q15M PRN IM DECREASED GLUCOSE; Start 09/17/18 at 14:30 Glucose (Glutose) 15 gm Q15M PRN BUCCAL DECREASED GLUCOSE; Start 09/17/18 at 14:30 Magnesium Oxide (Mag-Ox 400) 400 mg TID PO Last administered on 09/26/18 12:29; Admin Dose 400 MG; Start 09/19/18 at 21:00 Famotidine (Pepcid) 20 mg HS PO Last administered on 09/25/18at 20:12; Admin Dose 20 MG; Start 09/19/18 at 21:00 Folic Acid (Folic Acid) 1 mg DAILY PO Last administered on 09/26/18 08:36; Admin Dose 1 MG; Start 09/21/18 at 09:00 Furosemide (Lasix) 20 mg DAILY PO Last administered on 09/26/18 08:37; Admin Dose 20 MG; Start 09/21/18 at 15:00 Spironolactone (Aldactone) 50 mg DAILY PO Last administered on 09/26/18 08:36; Admin Dose 50 MG; Start 09/22/18 at 17:30 Hydrocortisone (Cortef) 20 mg DAILY@0700 PO Last administered on 09/26/18 06:29; Admin Dose 20 MG; Start 09/23/18 at 07:00 Hydrocortisone (Cortef) 10 mg DAILY@1700 PO Last administered on 09/25/18 17:34; Admin Dose 10 MG; Start 09/22/18 at 18:00 Metformin HCl (Glucophage) 500 mg BID WITH MEALS PO Last administered on 09/26/18 08:36; Admin Dose 500 MG; Start 09/24/18 at 07:50 Linagliptin (Tradjenta) 5 mg DAILY PO Last administered on 09/26/18 08:36; Admin Dose 5 MG; Start 09/25/18 at 09:00 Empaglifozin (Jardiance) 10 mg DAILY@08 PO Last administered on 09/26/18at 08:37; Admin Dose 10 MG; Start 09/25/18 at 08:00 BRIAN MENG MD Sep 26, 2018 15:56
[2018-09-26] MEDS: HYDROCORTISONE 5 MG TAB PO SCH (17:42)
[2018-09-26 19:49] VITALS: BP 109/71; PULSE 94; RESP 18
[2018-09-26] MEDS: FAMOTIDINE 20 MG TAB PO SCH (20:23)
[2018-09-26] MEDS: ACCU-CHEK XX SCH (20:23)
[2018-09-27 01:59] VITALS: BP 111/62; PULSE 71; RESP 18
[2018-09-27] MEDS: HYDROCORTISONE 5 MG TAB PO SCH ×2 (06:33→17:34)
[2018-09-27] MEDS: INSULIN ASPART [NOVOLOG] 3 ML PEN SC SCH ×4 (07:50→21:00)
[2018-09-27 07:57] VITALS: BP 119/68; PULSE 78; RESP 19
[2018-09-27] MEDS: FERROUS SULFATE (EC) 325 MG TAB PO SCH (08:26)
[2018-09-27] MEDS: FOLIC ACID 1 MG TAB PO SCH (08:27)
[2018-09-27] MEDS: SPIRONOLACTONE 50 MG TAB PO SCH (08:27)
[2018-09-27] MEDS: metFORMIN 500 MG TAB PO SCH ×2 (08:27→17:34)
[2018-09-27] MEDS: EMPAGLIFLOZIN 10 MG TABLET PO SCH (08:27)
[2018-09-27] MEDS: FUROSEMIDE 20 MG TAB PO SCH (08:27)
[2018-09-27] MEDS: LINAGLIPTIN 5 MG TABLET PO SCH (08:27)
[2018-09-27] MEDS: THIAMINE 100 MG TAB PO SCH (08:27)
[2018-09-27] MEDS: MAGNESIUM OXIDE 400 MG TAB PO SCH ×3 (08:27→22:02)
[2018-09-27] MEDS: POTASSIUM CHLORIDE (SR) 20 MEQ TAB PO SCH (08:28)
--- NOTE | 2018-09-27 13:32 | CONS ---
Consult Date/Type/Reason Admit Date/Time Sep 17, 2018 at 05:48 Initial Consult Date 09/22/18 Requesting Provider: ANGEL BATISTA MD Date/Time of Note DATE: 09/27/18 TIME: 13:28 Subjective The patient is stable. No events overnight. No fevers, chills, nausea or vomiting. reportedly improved on steroids. continues good uo. POC Reviewed with dr. valerie SHAY: Head is normocephalic. NECK: Supple. HEART: Regular rate. LUNGS: Show diminished breath sounds at the base. ABDOMEN: Soft, nontender to palpation without rebound or guarding. EXTREMITIES: Negative for clubbing, cyanosis, no edema. DERMATOLOGIC: No rashes. MUSCULOSKELETAL: No joint effusion. NEUROLOGIC: No change in exam. Objective Vitals Vital Signs Date Temp Pulse Resp B/P (MAP) Pulse Ox O2 O2 Flow FiO2 Time Delivery Rate 09/27/18 98.7 78 19 119/68 98 07:57 (85) 09/27/18 Room Air 01:59 Intake and Output 09/26/18 09/26/18 09/27/18 1515:00 23:00 07:00 IntakeIntake Total 300 ml 240 ml 800 ml BalanceBalance 300 ml 240 ml 800 ml Results/Medications Result Diagram: 09/27/18 0436 09/27/18 0436 Results 24 hrs Laboratory Tests Test 09/26/18 17:41 09/26/18 20:22 09/27/18 04:36 09/27/18 08:25 Bedside Glucose 130 159 87 White Blood Count 13.3 H Red Blood Count 2.63 L Hemoglobin 8.0 L Hematocrit 25.2 L Mean Corpuscular 95.8 Volume Mean Corpuscular 30.4 Hemoglobin Mean Corpuscular 31.7 L Hemoglobin Concent Red Cell 15.3 H Distribution Width Platelet Count 163 Mean Platelet Volume 9.6 Immature 1.200 H Granulocytes % Neutrophils % 64.6 Lymphocytes % 20.9 Monocytes % 11.4 H Eosinophils % 1.0 Basophils % 0.9 Nucleated Red Blood 0.0 Cells % Immature 0.160 H Granulocytes # Neutrophils # 8.6 H Lymphocytes # 2.8 Monocytes # 1.5 H Eosinophils # 0.1 Basophils # 0.1 Nucleated Red Blood 0.0 Cells # Sodium Level 147 H Potassium Level 3.8 Chloride Level 113 H Carbon Dioxide Level 26 Anion Gap 8 Blood Urea Nitrogen 25 H Creatinine 1.11 Est Glomerular > 60 Filtrat Rate mL/min Glucose Level 101 Calcium Level 9.1 Phosphorus Level 3.3 Magnesium Level 1.9 Total Bilirubin 0.4 Direct Bilirubin 0.00 Indirect Bilirubin 0.4 Aspartate Amino 44 Transf (AST/SGOT) Alanine 29 Aminotransferase (AL T/SGPT) Alkaline Phosphatase 176 H Total Protein 7.8 Albumin 3.5 Globulin 4.30 H Albumin/Globulin 0.81 Ratio Test 09/27/18 12:45 Bedside Glucose 106 Home Meds Active Scripts Levofloxacin* (Levofloxacin*) 750 Mg Tablet, 750 MG PO DAILY for 30 Days, #30 TAB Prov:JONN SEAY MD 09/07/18 Metformin* (Glucophage*) 500 Mg Tab, 500 MG PO BID WITH MEALS, #90 TAB 2 Refills Prov:JONN SEAY MD 09/07/18 Linagliptin (TRADJENTA) 5 Mg Tablet, 5 MG PO DAILY, #90 TAB 1 Refill Prov:JONN SEAY MD 09/07/18 Empagliflozin (Jardiance) 10 Mg Tablet, 25 MG PO DAILY@08, #90 TAB 1 Refill Prov:JONN SEAY MD 09/07/18 Magnesium Oxide* (Mag-Oxide*) 400 Mg Tablet, 400 MG PO DAILY, #60 TAB 2 Refills Prov:JONN SEAY MD 09/07/18 Potassium Chloride* (K-Dur*) 20 Meq Tab.prt.sr, 60 MEQ PO DAILY, #90 TAB 2 Refills Prov:JONN SEAY MD 09/07/18 Reported Medications Ferrous Sulfate* (Ferrous Sulfate*) 325 Mg Tabec, 325 MG PO DAILY, TAB 08/25/18 Lorazepam* (Lorazepam*) 1 Mg Tablet, 1 MG PO Q12H PRN for ANXIETY for 15 Days, #30 08/25/18 Cholecalciferol* (Vitamin D*) 400 Unit Tablet, 800 UNIT PO DAILY, TAB 06/24/17 Medications Current Medications IV Flush (NS 3 ml) 3 ml PER PROTOCOL IV ; Start 09/17/18 at 03:30 Ondansetron HCl (Zofran Inj) 4 mg Q6H PRN IV NAUSEA/VOMITING; Start 09/17/18 at 03:30 Acetaminophen (Tylenol Tab) 650 mg Q6H PRN PO .PAIN 1-3 OR TEMP Last administered on 09/20/18 05:27; Admin Dose 650 MG; Start 09/17/18 at 03:30 Albuterol/ Ipratropium (Duoneb) 3 ml Q2H RESP THERAPY PRN HHN SHORTNESS OF BREATH; Start 09/17/18 at 03:30 Ferrous Sulfate (Ferrous Sulfate (Ec)) 325 mg DAILY PO Last administered on 09/27/18at 08:26; Admin Dose 325 MG; Start 09/17/18 at 09:00 Lorazepam (Ativan) 1 mg Q12H PRN PO ANXIETY; Start 09/17/18 at 03:30 Potassium Chloride (Klor-Con 20) 60 meq DAILY PO Last administered on 09/27/18at 08:28; Admin Dose 60 MEQ; Start 09/17/18 at 09:00 Thiamine HCl (Vitamin B1) 100 mg DAILY PO Last administered on 09/27/18at 08:27; Admin Dose 100 MG; Start 09/17/18 at 14:30 Diagnostic Test (Pha) (Accu-Chek) 1 ea 02 XX ; Start 09/18/18 at 02:00 Insulin Aspart (Novolog Insulin Pen) NOVOLOG *MILD* ALGORITHM WITH MEALS BEDTIME SC Last administered on 09/26/18at 12:29; Admin Dose 1 UNIT; Start 09/17/18 at 17:55 Miscellaneous Information 1 ea NOTE XX ; Start 09/17/18 at 14:30 Glucose (Glutose) 15 gm Q15M PRN PO DECREASED GLUCOSE; Start 09/17/18 at 14:30 Glucose (Glutose) 22.5 gm Q15M PRN PO DECREASED GLUCOSE; Start 09/17/18 at 14:30 Dextrose (D50w Syringe) 25 ml Q15M PRN IV DECREASED GLUCOSE; Start 09/17/18 at 14:30 Dextrose (D50w Syringe) 50 ml Q15M PRN IV DECREASED GLUCOSE; Start 09/17/18 at 14:30 Glucagon (Glucagen) 1 mg Q15M PRN IM DECREASED GLUCOSE; Start 09/17/18 at 14:30 Glucose (Glutose) 15 gm Q15M PRN BUCCAL DECREASED GLUCOSE; Start 09/17/18 at 14:30 Magnesium Oxide (Mag-Ox 400) 400 mg TID PO Last administered on 09/27/18 12:52; Admin Dose 400 MG; Start 09/19/18 at 21:00 Famotidine (Pepcid) 20 mg HS PO Last administered on 09/26/18 20:23; Admin Dose 20 MG; Start 09/19/18 at 21:00 Folic Acid (Folic Acid) 1 mg DAILY PO Last administered on 09/27/18 08:27; Admin Dose 1 MG; Start 09/21/18 at 09:00 Furosemide (Lasix) 20 mg DAILY PO Last administered on 09/27/18 08:27; Admin Dose 20 MG; Start 09/21/18 at 15:00 Spironolactone (Aldactone) 50 mg DAILY PO Last administered on 09/27/18 08:27; Admin Dose 50 MG; Start 09/22/18 at 17:30 Metformin HCl (Glucophage) 500 mg BID WITH MEALS PO Last administered on 09/27/18 08:27; Admin Dose 500 MG; Start 09/24/18 at 07:50 Linagliptin (Tradjenta) 5 mg DAILY PO Last administered on 09/27/18 08:27; Admin Dose 5 MG; Start 09/25/18 at 09:00 Empaglifozin (Jardiance) 10 mg DAILY@08 PO Last administered on 09/27/18 08:27; Admin Dose 10 MG; Start 09/25/18 at 08:00 Hydrocortisone (Cortef) 7.5 mg DAILY@1700 PO Last administered on 09/26/18 17:42; Admin Dose 7.5 MG; Start 09/26/18 at 17:00 Hydrocortisone (Cortef) 15 mg DAILY@0700 PO Last administered on 09/27/18 06:33; Admin Dose 15 MG; Start 09/27/18 at 07:00 Assessment/Plan Hospital Course (Demo Recall) 1. Nonoliguric acute kidney injury with previously normal baseline creatinine. Etiology of TORIBIO is secondary to hemodynamics, diuretic therapy. The patient's creatinine has improved. Monitor closely on current diuretic regimen. watch for diuretic phase of toribio. all meds dosed ok. 2. hypernatremia- questionable significance. trend for now. 3. Hypokalemia, resolved. 4. Decompensated cirrhosis. The patient is status post paracentesis. Continue medical management. Continue diuretic therapy, monitor renal function and electrolytes closely. 5. Hypotension, improved. possible related to adrenal insufficiency 6. adrenal insufficiency. The patient has been placed on a trial of Cortef. Follow up with endocrinology. 7. Diabetes. Continue current regimen. 8. Hypomagnesemia. Continue to monitor and replete as needed. 9. History of ETOH abuse. Continue thiamine, and folic acid. 10. Thrombocytopenia secondary to cirrhosis. Continue to monitor. 11. anemia- likely acd related to cirrhosis. holding steady at 8. monitor. FLO ZAVALA MD Sep 27, 2018 13:32
[2018-09-27] MEDS ORDERED: SPIR50TA PO (15:58)
[2018-09-27] MEDS ORDERED: THIA100T56 PO (15:58)
[2018-09-27] MEDS ORDERED: EMPA10TA PO (15:58)
[2018-09-27] MEDS ORDERED: FER325 PO (15:58)
[2018-09-27] MEDS ORDERED: LINA5TAB PO (15:58)
[2018-09-27] MEDS ORDERED: METF-849 PO (15:58)
[2018-09-27] MEDS ORDERED: HYDR5TAB7 PO (15:58)
[2018-09-27] MEDS ORDERED: FOLI-49 PO (15:58)
[2018-09-27 17:32] VITALS: BP 102/57; PULSE 84; RESP 18
--- NOTE | 2018-09-27 20:16 | PN ---
Date/Time of Note Date/Time of Note DATE: 09/27/18 TIME: 20:12 Assessment/Plan VTE Prophylaxis [place] [facility] [place] risk: 0 SCD applied (from [facility] [place] Yes Pharmacological prophylaxis: NA/contraindicated Pharm contraindication: other (liver disease) Lines/Catheters IV C[facility]ter Type (from [facility] Saline Lock Urinary Cath still in place: No Assessment/Plan Hospital Course 1. Low serum cortisol. continue on cortisol per endocrinology recommendations 2. Alcoholic liver cirrhosis. Status post paracentesis on 09/17/2018 with drainage of 4.5 L of fluid. continue diuretics 3. Diabetes mellitus. Hemoglobin A1c 6.3. Continue oral antidiabetic medications 4. EtOH abuse. Continue thiamine and folic acid. 5. Acute kidney injury. improved pharmacy technologist following DISPO.PLAN: Patient reports he has no follow up and goes to the hospital for his follow up. He reports he is not able to get his medications as outpatient. Will get pillowcase cutter to follow. d/c planning in progress Discussed POC with Dr. Black Result Diagram: 09/27/18 0436 09/27/18 0436 Results 24hrs Laboratory Tests Test 09/26/18 20:22 09/27/18 04:36 09/27/18 08:25 09/27/18 12:45 Bedside Glucose 159 87 106 White Blood Count 13.3 H Red Blood Count 2.63 L Hemoglobin 8.0 L Hematocrit 25.2 L Mean Corpuscular 95.8 Volume Mean Corpuscular 30.4 Hemoglobin Mean Corpuscular 31.7 L Hemoglobin Concent Red Cell 15.3 H Distribution Width Platelet Count 163 Mean Platelet Volume 9.6 Immature 1.200 H Granulocytes % Neutrophils % 64.6 Lymphocytes % 20.9 Monocytes % 11.4 H Eosinophils % 1.0 Basophils % 0.9 Nucleated Red Blood 0.0 Cells % Immature 0.160 H Granulocytes # Neutrophils # 8.6 H Lymphocytes # 2.8 Monocytes # 1.5 H Eosinophils # 0.1 Basophils # 0.1 Nucleated Red Blood 0.0 Cells # Sodium Level 147 H Potassium Level 3.8 Chloride Level 113 H Carbon Dioxide Level 26 Anion Gap 8 Blood Urea Nitrogen 25 H Creatinine 1.11 Est Glomerular > 60 Filtrat Rate mL/min Glucose Level 101 Calcium Level 9.1 Phosphorus Level 3.3 Magnesium Level 1.9 Total Bilirubin 0.4 Direct Bilirubin 0.00 Indirect Bilirubin 0.4 Aspartate Amino 44 Transf (AST/SGOT) Alanine 29 Aminotransferase (AL T/SGPT) Alkaline Phosphatase 176 H Total Protein 7.8 Albumin 3.5 Globulin 4.30 H Albumin/Globulin 0.81 Ratio Test 09/27/18 17:33 Bedside Glucose 185 Subjective 24 Hr Interval Summary Free Text/Dictation comfortable at present. 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, nl mental status, nl speech Skin: nl turgor Results Results 24hrs Laboratory Tests Test 09/26/18 20:22 09/27/18 04:36 09/27/18 08:25 09/27/18 12:45 Bedside Glucose 159 87 106 White Blood Count 13.3 H Red Blood Count 2.63 L Hemoglobin 8.0 L Hematocrit 25.2 L Mean Corpuscular 95.8 Volume Mean Corpuscular 30.4 Hemoglobin Mean Corpuscular 31.7 L Hemoglobin Concent Red Cell 15.3 H Distribution Width Platelet Count 163 Mean Platelet Volume 9.6 Immature 1.200 H Granulocytes % Neutrophils % 64.6 Lymphocytes % 20.9 Monocytes % 11.4 H Eosinophils % 1.0 Basophils % 0.9 Nucleated Red Blood 0.0 Cells % Immature 0.160 H Granulocytes # Neutrophils # 8.6 H Lymphocytes # 2.8 Monocytes # 1.5 H Eosinophils # 0.1 Basophils # 0.1 Nucleated Red Blood 0.0 Cells # Sodium Level 147 H Potassium Level 3.8 Chloride Level 113 H Carbon Dioxide Level 26 Anion Gap 8 Blood Urea Nitrogen 25 H Creatinine 1.11 Est Glomerular > 60 Filtrat Rate mL/min Glucose Level 101 Calcium Level 9.1 Phosphorus Level 3.3 Magnesium Level 1.9 Total Bilirubin 0.4 Direct Bilirubin 0.00 Indirect Bilirubin 0.4 Aspartate Amino 44 Transf (AST/SGOT) Alanine 29 Aminotransferase (AL T/SGPT) Alkaline Phosphatase 176 H Total Protein 7.8 Albumin 3.5 Globulin 4.30 H Albumin/Globulin 0.81 Ratio Test 09/27/18 17:33 Bedside Glucose 185 Medications Medication Current Medications IV Flush (NS 3 ml) 3 ml PER PROTOCOL IV ; Start 09/17/18 at 03:30 Ondansetron HCl (Zofran Inj) 4 mg Q6H PRN IV NAUSEA/VOMITING; Start 09/17/18 at 03:30 Acetaminophen (Tylenol Tab) 650 mg Q6H PRN PO .PAIN 1-3 OR TEMP Last administered on 09/20/18at 05:27; Admin Dose 650 MG; Start 09/17/18 at 03:30 Albuterol/ Ipratropium (Duoneb) 3 ml Q2H RESP THERAPY PRN HHN SHORTNESS OF [place]UMI[place] ATH; Start 09/17/18 at 03:30 Ferrous Sulfate (Ferrous Sulfate (Ec)) 325 mg DAILY PO Last administered on 09/27/18at 08:26; Admin Dose 325 MG; Start 09/17/18 at 09:00 Lorazepam (Ativan) 1 mg Q12H PRN PO ANXIETY; Start 09/17/18 at 03:30 Potassium Chloride (Klor-Con 20) 60 meq DAILY PO Last administered on 09/27/18at 08:28; Admin Dose 60 MEQ; Start 09/17/18 at 09:00 Thiamine HCl (Vitamin B1) 100 mg DAILY PO Last administered on 09/27/18at 08:27; Admin Dose 100 MG; Start 09/17/18 at 14:30 Diagnostic Test (Pha) (Accu-Chek) 1 ea 02 XX ; Start 09/18/18 at 02:00 Insulin Aspart (Novolog Insulin Pen) NOVOLOG *MILD* ALGORITHM WITH MEALS BEDTIME SC Last administered on 09/27/18at 17:35; Admin Dose 2 UNIT; Start 09/17/18 at 17:55 Miscellaneous Information 1 ea NOTE XX ; Start 09/17/18 at 14:30 Glucose (Glutose) 15 gm Q15M PRN PO DECREASED GLUCOSE; Start 09/17/18 at 14:30 Glucose (Glutose) 22.5 gm Q15M PRN PO DECREASED GLUCOSE; Start 09/17/18 at 14:30 Dextrose (D50w Syringe) 25 ml Q15M PRN IV DECREASED GLUCOSE; Start 09/17/18 at 14:30 Dextrose (D50w Syringe) 50 ml Q15M PRN IV DECREASED GLUCOSE; Start 09/17/18 at 14:30 Glucagon (Glucagen) 1 mg Q15M PRN IM DECREASED GLUCOSE; Start 09/17/18 at 14:30 Glucose (Glutose) 15 gm Q15M PRN BUCCAL DECREASED GLUCOSE; Start 09/17/18 at 14:30 Magnesium Oxide (Mag-Ox 400) 400 mg TID PO Last administered on 09/27/18 12:52; Admin Dose 400 MG; Start 09/19/18 at 21:00 Famotidine (Pepcid) 20 mg HS PO Last administered on 09/26/18 20:23; Admin Dose 20 MG; Start 09/19/18 at 21:00 Folic Acid (Folic Acid) 1 mg DAILY PO Last administered on 09/27/18 08:27; Admin Dose 1 MG; Start 09/21/18 at 09:00 Furosemide (Lasix) 20 mg DAILY PO Last administered on 09/27/18 08:27; Admin Dose 20 MG; Start 09/21/18 at 15:00 Spironolactone (Aldactone) 50 mg DAILY PO Last administered on 09/27/18 08:27; Admin Dose 50 MG; Start 09/22/18 at 17:30 Metformin HCl (Glucophage) 500 mg BID WITH MEALS PO Last administered on 09/27/18 17:34; Admin Dose 500 MG; Start 09/24/18 at 07:50 Linagliptin (Tradjenta) 5 mg DAILY PO Last administered on 09/27/18 08:27; Admin Dose 5 MG; Start 09/25/18 at 09:00 Empaglifozin (Jardiance) 10 mg DAILY@08 PO Last administered on 09/27/18 08: 27; Admin Dose 10 MG; Start 09/25/18 at 08:00 Hydrocortisone (Cortef) 7.5 mg DAILY@1700 PO Last administered on 09/27/18 17:34; Admin Dose 7.5 MG; Start 09/26/18 at 17:00 Hydrocortisone (Cortef) 15 mg DAILY@0700 PO Last administered on 09/27/18at 06:33; Admin Dose 15 MG; Start 09/27/18 at 07:00 RIGO CHANDLER NP Sep 27, 2018 20:16
[2018-09-27 20:45] VITALS: BP 109/69; PULSE 87; RESP 17
--- NOTE | 2018-09-27 21:32 | CONS ---
Assessment/Plan Assessment/Plan Problems: (1) Low serum cortisol level Status: Acute Comment: Pt. continues to get good clinical result from hydrocortisone replacement. Of note, WBC, sodium, and chloride results all slightly elevated. However, I do not believe this is due to cortisol over replacement. Hyd rocortisone dose weaned over last 48 hours and pt. tolerating well w/ good BP. Ok for d/c on these doses of hydrocortisone and would f/u in office. (2) Type 2 diabetes mellitus without complications Status: Chronic Comment: Good glycemic control. Cont. metformin. Consultation Date/Type/Reason Admit Date/Time Sep 17, 2018 at 05:48 Initial Consult Date 09/22/18 Type of Consult Endocrinology Reason for Consultation R/o adrenal insufficiency Requesting Provider: ANGEL BATISTA MD Date/Time of Note DATE: 09/27/18 TIME: 21:29 24 HR Interval Summary Constitutional: no complaints, improved Detailed Summary Respiratory: no complaints Cardiovascular: no complaints Gastrointestinal: no complaints Genitourinary: no complaints Musculoskeletal: no complaints Neurologic: no complaints Exam/Review of Systems Exam Vitals VS - Last 72 Hours, by Label Date Temp Pulse Resp B/P (MAP) Pulse Ox O2 O2 Flow FiO2 Time Delivery Rate 09/27/18 97.9 87 17 109/69 99 20:45 (82) 09/27/18 98.2 84 18 102/57 99 17:32 (72) 09/27/18 98.7 78 19 119/68 98 07:57 (85) 09/27/18 98.5 71 18 111/62 100 Room Air 01:59 (78) 09/26/18 98.0 94 18 109/71 100 Room Air 19:49 (84) 09/26/18 98.7 87 17 100/64 100 13:36 (76) 09/26/18 98.9 70 18 101/65 99 07:13 (77) 09/26/18 98.7 88 18 102/67 98 02:03 (79) 09/25/18 97.8 83 18 118/74 97 19:20 (89) 09/25/18 98.0 80 18 110/56 97 14:00 (74) 09/25/18 98.9 91 18 96/63 (74) 99 08:26 09/25/18 98.8 84 20 101/64 98 Room Air 02:05 (76) Vital Signs Date Temp Pulse Resp B/P (MAP) Pulse Ox O2 O2 Flow FiO2 Time Delivery Rate 09/27/18 97.9 87 17 109/69 99 20:45 (82) 09/27/18 Room Air 01:59 Intake and Output 09/26/18 09/26/18 09/27/18 1515:00 23:00 07:00 IntakeIntake Total 300 ml 240 ml 800 ml BalanceBalance 300 ml 240 ml 800 ml Constitutional: alert, oriented, well developed Psych: no complaints, nl mood/affect Respiratory: clear to auscultation, normal air movement Cardiovascular: regular rate and rhythm, nl pulses; No edema, No murmurs/extra sounds, No rub Gastrointestinal: soft, nl liver, spleen, non-tender, bowel sounds; No mass, No rebound or guarding Musculoskeletal: nl extremities to inspection Extremities: normal pulses; No cyanosis, No clubbing, No edema 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: HAT SIZER II-XII intact, nl mental status, nl speech, nl strength Additional Comments Bedside Glucose - 72 Hours Test 09/25/18 08:17 09/25/18 12:31 09/25/18 17:33 09/25/18 20:11 Bedside 137 104 121 139 Glucose mg/dL (70-220) mg/dL (70-220) mg/dL (70-220) mg/dL (70-220) Test 09/26/18 08:35 09/26/18 12:28 09/26/18 17:41 09/26/18 20:22 Bedside 144 163 130 159 Glucose mg/dL (70-220) mg/dL (70-220) mg/dL (70-220) mg/dL (70-220) Test 09/27/18 08:25 09/27/18 12:45 09/27/18 17:33 Bedside 87 106 185 Glucose mg/dL (70-220) mg/dL (70-220) mg/dL (70-220) Results Result Diagram: 09/27/18 0436 09/27/18 0436 Results 24hrs Laboratory Tests Test 09/27/18 04:36 09/27/18 08:25 09/27/18 12:45 09/27/18 17:33 White Blood Count 13.3 H Red Blood Count 2.63 L Hemoglobin 8.0 L Hematocrit 25.2 L Mean Corpuscular 95.8 Volume Mean Corpuscular 30.4 Hemoglobin Mean Corpuscular 31.7 L Hemoglobin Concent Red Cell 15.3 H Distribution Width Platelet Count 163 Mean Platelet Volume 9.6 Immature 1.200 H Granulocytes % Neutrophils % 64.6 Lymphocytes % 20.9 Monocytes % 11.4 H Eosinophils % 1.0 Basophils % 0.9 Nucleated Red Blood 0.0 Cells % Immature 0.160 H Granulocytes # Neutrophils # 8.6 H Lymphocytes # 2.8 Monocytes # 1.5 H Eosinophils # 0.1 Basophils # 0.1 Nucleated Red Blood 0.0 Cells # Sodium Level 147 H Potassium Level 3.8 Chloride Level 113 H Carbon Dioxide Level 26 Anion Gap 8 Blood Urea Nitrogen 25 H Creatinine 1.11 Est Glomerular > 60 Filtrat Rate mL/min Glucose Level 101 Calcium Level 9.1 Phosphorus Level 3.3 Magnesium Level 1.9 Total Bilirubin 0.4 Direct Bilirubin 0.00 Indirect Bilirubin 0.4 Aspartate Amino 44 Transf (AST/SGOT) Alanine 29 Aminotransferase (AL T/SGPT) Alkaline Phosphatase 176 H Total Protein 7.8 Albumin 3.5 Globulin 4.30 H Albumin/Globulin 0.81 Ratio Bedside Glucose 87 106 185 Medications Medication Current Medications IV Flush (NS 3 ml) 3 ml PER PROTOCOL IV ; Start 09/17/18 at 03:30 Ondansetron HCl (Zofran Inj) 4 mg Q6H PRN IV NAUSEA/VOMITING; Start 09/17/18 at 03:30 Acetaminophen (Tylenol Tab) 650 mg Q6H PRN PO .PAIN 1-3 OR TEMP Last administered on 09/20/18at 05:27; Admin Dose 650 MG; Start 09/17/18 at 03:30 Albuterol/ Ipratropium (Duoneb) 3 ml Q2H RESP THERAPY PRN HHN SHORTNESS OF BREATH; Start 09/17/18 at 03:30 Ferrous Sulfate (Ferrous Sulfate (Ec)) 325 mg DAILY PO Last administered on 09/27/18at 08:26; Admin Dose 325 MG; Start 09/17/18 at 09:00 Lorazepam (Ativan) 1 mg Q12H PRN PO ANXIETY; Start 09/17/18 at 03:30 Potassium Chloride (Klor-Con 20) 60 meq DAILY PO Last administered on 09/27/18at 08:28; Admin Dose 60 MEQ; Start 09/17/18 at 09:00 Thiamine HCl (Vitamin B1) 100 mg DAILY PO Last administered on 09/27/18at 08:27; Admin Dose 100 MG; Start 09/17/18 at 14:30 Diagnostic Test (Pha) (Accu-Chek) 1 ea 02 XX ; Start 09/18/18 at 02:00 Insulin Aspart (Novolog Insulin Pen) NOVOLOG *MILD* ALGORITHM WITH MEALS BEDTI ME SC Last administered on 09/27/18at 17:35; Admin Dose 2 UNIT; Start 09/17/18 at 17:55 Miscellaneous Information 1 ea NOTE XX ; Start 09/17/18 at 14:30 Glucose (Glutose) 15 gm Q15M PRN PO DECREASED GLUCOSE; Start 09/17/18 at 14:30 Glucose (Glutose) 22.5 gm Q15M PRN PO DECREASED GLUCOSE; Start 09/17/18 at 14:30 Dextrose (D50w Syringe) 25 ml Q15M PRN IV DECREASED GLUCOSE; Start 09/17/18 at 14:30 Dextrose (D50w Syringe) 50 ml Q15M PRN IV DECREASED GLUCOSE; Start 09/17/18 at 14:30 Glucagon (Glucagen) 1 mg Q15M PRN IM DECREASED GLUCOSE; Start 09/17/18 at 14:30 Glucose (Glutose) 15 gm Q15M PRN BUCCAL DECREASED GLUCOSE; Start 09/17/18 at 14:30 Magnesium Oxide (Mag-Ox 400) 400 mg TID PO Last administered on 09/27/18at 12:52; Admin Dose 400 MG; Start 09/19/18 at 21:00 Famotidine (Pepcid) 20 mg HS PO Last administered on 09/26/18at 20:23; Admin Dose 20 MG; Start 09/19/18 at 21:00 Folic Acid (Folic Acid) 1 mg DAILY PO Last administered on 09/27/18at 08:27; Admin Dose 1 MG; Start 09/21/18 at 09:00 Furosemide (Lasix) 20 mg DAILY PO Last administered on 09/27/18at 08:27; Admin Dose 20 MG; Start 09/21/18 at 15:00 Spironolactone (Aldactone) 50 mg DAILY PO Last administered on 09/27/18at 08:27; Admin Dose 50 MG; Start 09/22/18 at 17:30 Metformin HCl (Glucophage) 500 mg BID WITH MEALS PO Last administered on 09/27/18at 17:34; Admin Dose 500 MG; Start 09/24/18 at 07:50 Linagliptin (Tradjenta) 5 mg DAILY PO Last administered on 09/27/18 08:27; Admin Dose 5 MG; Start 09/25/18 at 09:00 Empaglifozin (Jardiance) 10 mg DAILY@08 PO Last administered on 09/27/18at 08:27; Admin Dose 10 MG; Start 09/25/18 at 08:00 Hydrocortisone (Cortef) 7.5 mg DAILY@1700 PO Last administered on 09/27/18at 17:34; Admin Dose 7.5 MG; Start 09/26/18 at 17:00 Hydrocortisone (Cortef) 15 mg DAILY@0700 PO Last administered on 09/27/18 06:33; Admin Dose 15 MG; Start 09/27/18 at 07:00 DELIO CESPEDES MD Sep 27, 2018 21:32
[2018-09-27] MEDS: FAMOTIDINE 20 MG TAB PO SCH (22:02)
[2018-09-28] MEDS: ACCU-CHEK XX SCH (02:00)
[2018-09-28 02:11] VITALS: BP 117/72; PULSE 94; RESP 18
[2018-09-28] MEDS: HYDROCORTISONE 5 MG TAB PO SCH ×2 (06:42→18:02)
[2018-09-28] MEDS: INSULIN ASPART [NOVOLOG] 3 ML PEN SC SCH ×3 (07:50→17:55)
--- NOTE | 2018-09-28 08:22 | CONS ---
Consult Date/Type/Reason Admit Date/Time Sep 17, 2018 at 05:48 Initial Consult Date 09/22/18 Requesting Provider: ANGEL BATISTA MD Date/Time of Note DATE: 09/28/18 TIME: 08:21 Subjective The patient is stable. No events overnight. No fevers, chills, nausea or vomiting. continues good uo. POC Reviewed with dr. valerie SHAY: Head is normocephalic. NECK: Supple. HEART: Regular rate. LUNGS: Show diminished breath sounds at the base. ABDOMEN: Soft, nontender to palpation without rebound or guarding. EXTREMITIES: Negative for clubbing, cyanosis, no edema. DERMATOLOGIC: No rashes. MUSCULOSKELETAL: No joint effusion. NEUROLOGIC: No change in exam. Objective Vitals Vital Signs Date Temp Pulse Resp B/P (MAP) Pulse Ox O2 O2 Flow FiO2 Time Delivery Rate 09/28/18 98.0 94 18 117/72 99 02:11 (87) 09/27/18 Room Air 01:59 Intake and Output 09/27/18 09/27/18 09/28/18 1515:00 23:00 07:00 IntakeIntake Total 1600 ml 540 ml BalanceBalance 1600 ml 540 ml Results/Medications Result Diagram: 09/28/18 0438 09/28/18 0438 Results 24 hrs Laboratory Tests Test 09/27/18 08:25 09/27/18 12:45 09/27/18 17:33 09/27/18 22:03 Bedside Glucose 87 106 185 104 Test 09/28/18 04:38 White Blood Count 17.7 #H Red Blood Count 2.89 L Hemoglobin 8.9 L Hematocrit 27.0 L Mean Corpuscular 93.4 Volume Mean Corpuscular 30.8 Hemoglobin Mean Corpuscular 33.0 Hemoglobin Concent Red Cell 15.4 H Distribution Width Platelet Count 190 Mean Platelet Volume 9.1 Immature 1.800 H Granulocytes % Neutrophils % 64.9 Lymphocytes % 19.3 Monocytes % 11.8 H Eosinophils % 1.2 Basophils % 1.0 Nucleated Red Blood 0.0 Cells % Immature 0.320 H Granulocytes # Neutrophils # 11.5 H Lymphocytes # 3.4 H Monocytes # 2.1 H Eosinophils # 0.2 Basophils # 0.2 H Nucleated Red Blood 0.0 Cells # Sodium Level 144 Potassium Level 4.3 Chloride Level 111 H Carbon Dioxide Level 23 Anion Gap 10 Blood Urea Nitrogen 30 H Creatinine 1.14 Est Glomerular > 60 Filtrat Rate mL/min Glucose Level 82 Calcium Level 9.8 Total Bilirubin 0.4 Direct Bilirubin 0.00 Indirect Bilirubin 0.4 Aspartate Amino 42 Transf (AST/SGOT) Alanine 31 Aminotransferase (AL T/SGPT) Alkaline Phosphatase 178 H Total Protein 8.7 H Albumin 3.8 Globulin 4.90 H Albumin/Globulin 0.77 Ratio Home Meds Active Scripts Thiamine* (Vitamin B-1*) 100 Mg Tablet, 100 MG PO DAILY, #30 TAB Prov:RIGO CHANDLER NP 09/27/18 Folic Acid* (Folic Acid*) 1 Mg Tablet, 1 MG PO DAILY, #30 TAB Prov:RIGO CHANDLER NP 09/27/18 Hydrocortisone (Hydrocortisone) 5 Mg Tablet, 15 MG PO DAILY@0700, #30 TAB Prov:RIGO CHANDLER NP 09/27/18 Empagliflozin (Jardiance) 10 Mg Tablet, 10 MG PO DAILY@08, #30 TAB Prov:RIGO CHANDLER NP 09/27/18 Spironolactone* (Aldactone*) 50 Mg Tablet, 50 MG PO DAILY, #30 TAB Prov:RIGO CHANDLER NP 09/27/18 Metformin* (Glucophage*) 500 Mg Tab, 500 MG PO BID WITH MEALS, #60 TAB 2 Refills Prov:RIGO CHANDLER NP 09/27/18 Linagliptin (TRADJENTA) 5 Mg Tablet, 5 MG PO DAILY, #30 TAB 1 Refill Prov:RIGO CHANDLER NP 09/27/18 Ferrous Sulfate* (Ferrous Sulfate*) 325 Mg Tabec, 325 MG PO DAILY, #30 TAB Prov:RIGO CHANDLER NP 09/27/18 Levofloxacin* (Levofloxacin*) 750 Mg Tablet, 750 MG PO DAILY for 30 Days, #30 TAB Prov:JONN SEAY MD 09/07/18 Empagliflozin (Jardiance) 10 Mg Tablet, 25 MG PO DAILY@08, #90 TAB 1 Refill Prov:JONN SEAY MD 09/07/18 Magnesium Oxide* (Mag-Oxide*) 400 Mg Tablet, 400 MG PO DAILY, #60 TAB 2 Refills Prov:JONN SEYA MD 6/25/19 Potassium Chloride* (K-Dur*) 20 Meq Tab.prt.sr, 60 MEQ PO DAILY, #90 TAB 2 Refills Prov:JONN SEAY MD 09/07/18 Reported Medications Lorazepam* (Lorazepam*) 1 Mg Tablet, 1 MG PO Q12H PRN for ANXIETY for 15 Days, #30 08/25/18 Cholecalciferol* (Vitamin D*) 400 Unit Tablet, 800 UNIT PO DAILY, TAB 06/24/17 Medications Current Medications IV Flush (NS 3 ml) 3 ml PER PROTOCOL IV ; Start 09/17/18 at 03:30 Ondansetron HCl (Zofran Inj) 4 mg Q6H PRN IV NAUSEA/VOMITING; Start 09/17/18 at 03:30 Acetaminophen (Tylenol Tab) 650 mg Q6H PRN PO .PAIN 1-3 OR TEMP Last administered on 09/20/18at 05:27; Admin Dose 650 MG; Start 09/17/18 at 03:30 Albuterol/ Ipratropium (Duoneb) 3 ml Q2H RESP THERAPY PRN HHN SHORTNESS OF BREATH; Start 09/17/18 at 03:30 Ferrous Sulfate (Ferrous Sulfate (Ec)) 325 mg DAILY PO Last administered on 09/27/18at 08:26; Admin Dose 325 MG; Start 09/17/18 at 09:00 Lorazepam (Ativan) 1 mg Q12H PRN PO ANXIETY; Start 09/17/18 at 03:30 Potassium Chloride (Klor-Con 20) 60 meq DAILY PO Last administered on 09/27/18at 08:28; Admin Dose 60 MEQ; Start 09/17/18 at 09:00 Thiamine HCl (Vitamin B1) 100 mg DAILY PO Last administered on 09/27/18at 08:27; Admin Dose 100 MG; Start 09/17/18 at 14:30 Diagnostic Test (Pha) (Accu-Chek) 1 ea 02 XX ; Start 09/18/18 at 02:00 Insulin Aspart (Novolog Insulin Pen) NOVOLOG *MILD* ALGORITHM WITH MEALS BEDT [place] Last administered on 09/27/18at 17:35; Admin Dose 2 UNIT; Start 09/17/18 at 17:55 Miscellaneous Information 1 ea NOTE XX ; Start 09/17/18 at 14:30 Glucose (Glutose) 15 gm Q15M PRN PO DECREASED GLUCOSE; Start 09/17/18 at 14:30 Glucose (Glutose) 22.5 gm Q15M PRN PO DECREASED GLUCOSE; Start 09/17/18 at 14:30 Dextrose (D50w Syringe) 25 ml Q15M PRN IV DECREASED GLUCOSE; Start 09/17/18 at 14:30 Dextrose (D50w Syringe) 50 ml Q15M PRN IV DECREASED GLUCOSE; Start 09/17/18 at 14:30 Glucagon (Glucagen) 1 mg Q15M PRN IM DECREASED GLUCOSE; Start 09/17/18 at 14:30 Glucose (Glutose) 15 gm Q15M PRN BUCCAL DECREASED GLUCOSE; Start 09/17/18 at 14:30 Magnesium Oxide (Mag-Ox 400) 400 mg TID PO Last administered on 09/27/18 22:02; Admin Dose 400 MG; Start 09/19/18 at 21:00 Famotidine (Pepcid) 20 mg HS PO Last administered on 09/27/18 22:02; Admin Dose 20 MG; Start 09/19/18 at 21:00 Folic Acid (Folic Acid) 1 mg DAILY PO Last administered on 09/27/18 08:27; Admin Dose 1 MG; Start 09/21/18 at 09:00 Furosemide (Lasix) 20 mg DAILY PO Last administered on 09/27/18 08:27; Admin Dose 20 MG; Start 09/21/18 at 15:00 Spironolactone (Aldactone) 50 mg DAILY PO Last administered on 09/27/18 08:27; Admin Dose 50 MG; Start 09/22/18 at 17:30 Metformin HCl (Glucophage) 500 mg BID WITH MEALS PO Last administered on 09/27/18 17:34; Admin Dose 500 MG; Start 09/24/18 at 07:50 Linagliptin (Tradjenta) 5 mg DAILY PO Last administered on 09/27/18 08:27; Admin Dose 5 MG; Start 09/25/18 at 09:00 Empaglifozin (Jardiance) 10 mg DAILY@08 PO Last administered on 09/27/18 08:27; Admin Dose 10 MG; Start 09/25/18 at 08:00 Hydrocortisone (Cortef) 7.5 mg DAILY@1700 PO Last administered on 09/27/18 17:34; Admin Dose 7.5 MG; Start 09/26/18 at 17:00 Hydrocortisone (Cortef) 15 mg DAILY@0700 PO Last administered on 09/28/18at 06:42; Admin Dose 15 MG; Start 09/27/18 at 07:00 Assessment/Plan Hospital Course (Demo Recall) 1. Nonoliguric acute kidney injury with previously normal baseline creatinine. Etiology of TORIBIO is secondary to hemodynamics, diuretic therapy. The patient's creatinine has improved. Monitor closely on current diuretic regimen. watch for diuretic phase of toribio. all meds dosed ok. 2. hypernatremia- questionable significance. trend for now. 3. Hypokalemia, resolved. 4. Decompensated cirrhosis. The patient is status post paracentesis. Continue medical management. Continue diuretic therapy, monitor renal function and electrolytes closely. 5. Hypotension, improved. possible related to adrenal insufficiency 6. adrenal insufficiency. The patient has been placed on a trial of Cortef. Follow up with endocrinology. 7. Diabetes. Continue current regimen. 8. Hypomagnesemia. Continue to monitor and replete as needed. 9. anemia- likely acd related to cirrhosis. holding steady. monitor. FLO ZAVALA MD Sep 28, 2018 08:22
[2018-09-28] MEDS: metFORMIN 500 MG TAB PO SCH ×2 (08:37→18:01)
[2018-09-28] MEDS: MAGNESIUM OXIDE 400 MG TAB PO SCH ×2 (08:39→13:21)
[2018-09-28] MEDS: LINAGLIPTIN 5 MG TABLET PO SCH (08:39)
[2018-09-28] MEDS: FOLIC ACID 1 MG TAB PO SCH (08:39)
[2018-09-28] MEDS: THIAMINE 100 MG TAB PO SCH (08:39)
[2018-09-28] MEDS: EMPAGLIFLOZIN 10 MG TABLET PO SCH (08:39)
[2018-09-28] MEDS: FERROUS SULFATE (EC) 325 MG TAB PO SCH (08:40)
[2018-09-28] MEDS: POTASSIUM CHLORIDE (SR) 20 MEQ TAB PO SCH (08:41)
[2018-09-28] MEDS: FUROSEMIDE 20 MG TAB PO SCH (08:45)
[2018-09-28] MEDS: SPIRONOLACTONE 50 MG TAB PO SCH (08:45)
[2018-09-28 08:46] VITALS: BP 105/68; PULSE 83; RESP 17
[2018-09-28 14:00] VITALS: BP 113/71; PULSE 89; RESP 18
--- NOTE | 2018-09-28 14:16 | PDOCDIS ---
Discharge Instructions DIAGNOSIS Discharge Diagnosis 1. Low serum cortisol. 2. Alcoholic liver cirrhosis. 3. Diabetes mellitus.Hemoglobin A1c 6.3. 4. EtOH abuse. 5. Acute kidney injury. CONDITION [id number] Patient Condition: [id number] Stable HOME CARE INSTRUCTIONS: [id number] Diet Instructions: [id number] RENAL DIET ACTIVITY: [id number] Activity Restrictions: [id number] No Restrictions FOLLOW UP/APPOINTMENTS Follow-up Plan Follow up with Dr. Evans Ramos in one week Office Address [address] [place] [id number] Office Follow up at [facility] for further management and care in 1 week RIGO CHANDLER NP Sep 28, 2018 14:16
--- NOTE | 2018-09-28 14:23 | DS ---
Date/Time of Note Date/Time of Note DATE: 09/28/18 TIME: 14:23 Discharge Summary Admission/Discharge Info Admit Date/Time Sep 17, 2018 at 05:48 Discharge Date/Time Discharge Diagnosis 1. Low serum cortisol. 2. Alcoholic liver cirrhosis. 3. Diabetes mellitus.Hemoglobin A1c 6.3. 4. EtOH abuse. 5. Acute kidney injury. Patient Condition: Stable Hospital Course This is a 38-year-old male history of alcohol abuse, decompensated alcohol liver cirrhosis, ascites, requiring paracentesis, diabetes, encephalopathy, who came to the hospital due to reports of abdominal pain with distention. Of note breezy ent was discharged 10 days ago prior to this current admission and was treated for sepsis and encephalopathy at that time. He was also diagnosed with diabetes at that time as well. He also underwent paracentesis on August 26, 2018 with 2.1 L removed. He had presented to the hospital tachycardic with heart rate of 120. His potassium was 2.9 sodium was also low at 131. 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 He was placed on hydrocortisone with good response. We did monitor his electrolytes and corrected them as needed. He was otherwise otherwise medically. He did have history of alcoholic cirrhosis. We did monitor him on diuretics. He was also resumed on antidiabetic medication. A1c was 6.3. For stage of alcohol abuse we did continue him on thiamine and folic acid. Alcohol cessation was advised. During his course of stay did improve. The plan of care was discussed with patient and patient verbalizes understanding. On the day of discharge patient was in stable condition Discussed POC with Dr. Black [facility] Active Scripts Thiamine* (Vitamin B-1*) 100 Mg Tablet, 100 MG PO DAILY, #30 TAB Prov:RIGO CHANDLER NP 09/27/18 Folic Acid* (Folic Acid*) 1 Mg Tablet, 1 MG PO DAILY, #30 TAB Prov:RIGO CHANDLER NP 09/27/18 Hydrocortisone (Hydrocortisone) 5 Mg Tablet, 15 MG PO DAILY@0700, #30 TAB Prov:RIGO CHANDLER NP 09/27/18 Empagliflozin (Jardiance) 10 Mg Tablet, 10 MG PO DAILY@08, #30 TAB Prov:RIGO CHANDLER NP 09/27/18 Spironolactone* (Aldactone*) 50 Mg Tablet, 50 MG PO DAILY, #30 TAB Prov:RIGO CHANDLER EL TEACHER 09/27/18 Metformin* (Glucophage*) 500 Mg Tab, 500 MG PO BID WITH MEALS, #60 TAB 2 Refills Prov:RIGO CHANDLER EL TEACHER 09/27/18 Linagliptin (TRADJENTA) 5 Mg Tablet, 5 MG PO DAILY, #30 TAB 1 Refill Prov:RIGO CHANDLER FRANCA 09/27/18 Ferrous Sulfate* (Ferrous Sulfate*) 325 Mg Tabec, 325 MG PO DAILY, #30 TAB Prov:RIGO CHANDLER EL TEACHER 09/27/18 Magnesium Oxide* (Mag-Oxide*) 400 Mg Tablet, 400 MG PO DAILY, #60 TAB 2 Refills Prov:JONN SEAY MD 09/07/18 Potassium Chloride* (K-Dur*) 20 Meq Tab.prt.sr, 60 MEQ PO DAILY, #90 TAB 2 Refills Prov:JONN SEAY MD 09/07/18 Reported Medications Lorazepam* (Lorazepam*) 1 Mg Tablet, 1 MG PO Q12H PRN for ANXIETY for 15 Days, #30 08/25/18 Cholecalciferol* (Vitamin D*) 400 Unit Tablet, 800 UNIT PO DAILY, TAB 06/24/17 Discontinued Scripts Levofloxacin* (Levofloxacin*) 750 Mg Tablet, 750 MG PO DAILY for 30 Days, #30 TAB Prov:JONN SEAY MD 09/07/18 Empagliflozin (Jardiance) 10 Mg Tablet, 25 MG PO DAILY@08, #90 TAB 1 Refill Prov:JONN SEAY MD 09/07/18 Follow-up Plan Follow up with Dr. Evans Ramos in one week Office Address [address] [place] [id number] Office Follow up at [facility] for further management and care in 1 week Primary Care Provider [facility] [place] Time spent on discharge: > 30 minutes Pending Labs Laboratory Tests Test 09/27/18 17:33 09/27/18 22:03 09/28/18 04:38 09/28/18 08:35 Bedside 185 104 105 Glucose mg/dL (70-220) mg/dL (70-220) mg/dL (70-220) White Blood 17.7 Count 10^3/ul (4.8-1 0.8) Red Blood 2.89 Count 10^6/ul (4.70- 6.10) Hemoglobin 8.9 g/dl (14.0-18. 0) Hematocrit 27.0 % (42.0-52.0) Mean 93.4 Corpuscular fl (82.0-101.0 Volume ) Mean 30.8 Corpuscular pg (29.0-33.0) Hemoglobin Mean 33.0 Corpuscular g/dl (32.0-37. Hemoglobin Conc 0) ent Red Cell 15.4 Distribution % (11.5-14.5) Width Platelet Count 190 10^3/UL (140-4 15) Mean Platelet 9.1 Volume fl (7.4-10.4) Immature 1.800 Granulocytes % % (0.001-0.429 ) Neutrophils % 64.9 % (39.0-77.0) Lymphocytes % 19.3 % (15.0-51.0) Monocytes % 11.8 % (0.0-11.0) Eosinophils % 1.2 % (0.0-7.0) Basophils % 1.0 % (0.0-2.0) Nucleated Red 0.0 Blood Cells % /100WBC (0.0-0 .0) Immature 0.320 Granulocytes # 10^3/ul (0.0-0 .031) Neutrophils # 11.5 10^3/ul (1.6-7 .5) Lymphocytes # 3.4 10^3/ul (0.8-2 .9) Monocytes # 2.1 10^3/ul (0.3-0 .9) Eosinophils # 0.2 10^3/ul (0.0-0 .5) Basophils # 0.2 10^3/ul (0.0-0 .1) Nucleated Red 0.0 Blood Cells # 10^3/ul (0.0-0 .0) Sodium Level 144 mmol/L (135-14 4) Potassium 4.3 Level mmol/L (3.5-5. 1) Chloride Level 111 mmol/L (97-110 ) Carbon Dioxide 23 Level mmol/L (21-31) Anion Gap 10 (5-13) Blood Urea 30 Nitrogen mg/dl (7-20) Creatinine 1.14 mg/dl (0.61-1. 24) Est Glomerular > 60 Filtrat mL/min (>60) Rate mL/min Glucose Level 82 mg/dl (70-220) Calcium Level 9.8 mg/dl (8.4-10. 2) Total 0.4 Bilirubin mg/dl (0.2-1.3 ) Direct 0.00 Bilirubin mg/dl (0.00-0. 20) Indirect 0.4 Bilirubin mg/dl (0-1.1) Aspartate Amino 42 Transf (AST/SGO IU/L (15-46) T) Alanine 31 Aminotransferas IU/L (13-69) e (ALT/SGPT) Alkaline 178 Phosphatase IU/L (42-121) Total Protein 8.7 g/dl (6.1-8.1) Albumin 3.8 g/dl (3.3-4.9) Globulin 4.90 g/dl (1.3-3.2) Albumin/Globuli 0.77 n Ratio Test 09/28/18 13:18 Bedside 102 Glucose mg/dL (70-220) RIGO CHANDLER NP Sep 28, 2018 14:23
== END 2018-09-28 19:00 | disposition home or self-care (01) | DRG 433 ==
LOC: E/R 19:17 → CANRESERV 09-17 05:04 → TEL 09-17 05:48 → EDBEDREQ 09-17 07:44 → EDBEDREQSVC 09-17 07:44 → MS1 09-19 00:52
PROVIDERS: ADMIT Internal Medicine; ATTEND Internal Medicine
PROC: 0W9G3ZZ Drainage of Peritoneal Cavity, Percutaneous Approach (ICD-10-PCS; principal; 2018-09-17)
DX: K70.31 Alcoholic cirrhosis of liver with ascites (principal); E27.40 Unspecified adrenocortical insufficiency; N17.9 Acute kidney failure, unspecified; E87.1 Hypo-osmolality and hyponatremia; E87.6 Hypokalemia; E11.22 Type 2 diabetes mellitus with diabetic chronic kidney disease; I12.9 Hypertensive chronic kidney disease with stage 1 through stage 4 chronic kidney disease, or unspecified chronic kidney disease; N18.9 Chronic kidney disease, unspecified; F10.10 Alcohol abuse, uncomplicated; D63.8 Anemia in other chronic diseases classified elsewhere; E86.0 Dehydration; E11.649 Type 2 diabetes mellitus with hypoglycemia without coma; D69.6 Thrombocytopenia, unspecified; Z59.0 Homelessness; E83.42 Hypomagnesemia
CPT/HCPCS: 36415; 71045; 80048; 80053; 81001; 81003; 82043; 82533; 82962; 83036; 83690; 83735; 84100; 84155; 84300; 84443; 84484; 85025; 85610; 85730; 93005; 96365; 96366; J1815; J3475; J3480; J7030; J7040; P9047

== ENCOUNTER 2018-10-31 15:42 | Emergency (ER) | payer MEDICAID ==
[~2018-10-31] VITALS: Ht 154.9 cm; Wt 60.7 kg
[~2018-10-31 15:42] MED LIST changes: +FOLI-49 PO; +HYDR5TAB7 PO; +IBUP-1542 PO; -LEVO750T8 PO; +SPIR50TA PO; +THIA100T56 PO
[2018-10-31 15:51] VITALS: Ht 154.9 cm; Wt 60.7 kg
[2018-10-31] MEDS ORDERED: HYDROCODONE/APAP (10/325) TAB PO ONE (16:30)
[2018-10-31 17:41] VITALS: BP 101/61; PULSE 76; RESP 20
== END 2018-10-31 17:44 | disposition home or self-care (01) ==
LOC: FTE 15:42
DX: M25.562 Pain in left knee (principal); E11.9 Type 2 diabetes mellitus without complications; Z79.84 Long term (current) use of oral hypoglycemic drugs
CPT/HCPCS: 73562; Z7502; Z7610